=== PATIENT | female | born 1965 | race Caucasian/White ===

== ENCOUNTER 2018-10-19 10:15 | Outpatient (CLI) | payer BC ==
[~2018-10-19] VITALS: Ht 172.7 cm; Wt 104.9 kg
[~2018-10-19 10:15] MED LIST: ALPR-557 PO; AMIT10TA6 PO; AMLO5TAB2 PO; DICL75TA2 PO; ESTR0.5T PO; FLUO20CA25 PO; GABA-488 PO; HYDR-3816 PO; LOSA1TAB23 PO; METF-380 PO; MULT-1018 PO; OMEP40CA36 PO; OXYB10TA8 PO; SIMV20TA3 PO
[2018-10-19] MEDS ORDERED: AMLO5TAB7 PO (10:35)
[2018-10-19] MEDS ORDERED: CYCL10TA9 PO (10:35)
[2018-10-19] MEDS ORDERED: FLUO20CA42 PO (10:35)
[2018-10-19] MEDS ORDERED: ESTR0.5T PO (10:35)
[2018-10-19] MEDS ORDERED: METF-397 PO (10:35)
[2018-10-19] MEDS ORDERED: AMIT10TA6 PO (10:35)
[2018-10-19] MEDS ORDERED: INDO50CA11 PO (10:35)
[2018-10-19] MEDS ORDERED: LOSA1TAB15 PO (10:35)
[2018-10-19] MEDS ORDERED: OMEP40CA36 PO (10:35)
[2018-10-19] MEDS ORDERED: HYDR-3820 PO (10:35)
[2018-10-19] MEDS ORDERED: GABA-488 PO (10:35)
[2018-10-19] MEDS ORDERED: SIMV20TA3 PO (10:35)
[2018-10-19] MEDS ORDERED: ASCO1TAB39 PO (10:35)
[2018-10-19] MEDS ORDERED: SITA1TAB6 PO (10:35)
[2018-10-19] MEDS ORDERED: TOLTA4 PO (10:35)
[2018-10-19 10:42] VITALS: BP 135/94
== END 2018-10-19 11:43 | disposition home or self-care (01) ==
LOC: PREOP 10:15
PROVIDERS: ATTEND Orthopaedic Surgery
DX: Z01.818 Encounter for other preprocedural examination (principal)
CPT/HCPCS: 87081

== ENCOUNTER 2018-10-25 07:08 | Day surgery (SDC) | payer BC ==
--- NOTE | 2018-10-16 12:17 | HISTORY AND PHYSICAL ---
DATE OF SERVICE: ADMISSION HISTORY AND PHYSICAL DATE OF AMISSION: 10/25/2018 This will be for outpatient surgery on 10/25/2018 for right shoulder arthroscopy with rotator cuff repair. HISTORY OF PRESENT ILLNESS: The patient is a 53-year-old right hand dominant female with complaints of right shoulder pain. Four months ago, she felt a pop in her shoulder and since then, has had pain with overhead activities. She reports no antecedent pain. She underwent an MRI, which revealed a large retracted three tendon tear. She underwent treatment with injections, which provided temporary relief of her symptoms. Due to functional impairment and failure to improve with conservative measures, the patient elected to proceed with surgical intervention. The patient understands that this may be an irreparable tear. REVIEW OF SYSTEMS: No chest pain, no shortness of breath. No dysuria. PAST MEDICAL HISTORY: Depression, diabetes, hypertension, fibromyalgia, hyperlipidemia, Lumbago, overactive bladder, syncope, anxiety, arthritis, depression, reflux, diabetes. PAST SURGICAL HISTORY: Appendectomy, , carpal tunnel release, hysterectomy, lumpectomy, tubal ligation, cardiocele, dental surgery, hammertoe, heart catheterization, hysterectomy, total hip arthroplasty on the left. FAMILY HISTORY: Significant for Alzheimer's, hypertension, ischemic heart disease. PRIMARY CARE PROVIDER: No local physician. MEDICATIONS: Cyclobenzaprine, diclofenac, alprazolam, omeprazole, tolterodine, losartan, gabapentin, amlodipine, metformin, simvastatin, estradiol, amitriptyline, hydrocodone, Prozac and cefdinir. ALLERGIES: PROMETHAZINE and ZOFRAN. SOCIAL HISTORY: The patient drinks alcohol rarely and is a former smoker. Radiographs reveal slight elevation of the humeral head. PHYSICAL EXAMINATION: GENERAL: The patient is well developed, well-nourished, in no acute distress. HEENT: Normocephalic, atraumatic. Pupils equal, round and reactive. Oropharynx is clear. NECK: Supple, no lymphadenopathy. LUNGS: Clear to auscultation bilaterally. HEART: Regular rate and rhythm. ABDOMEN: Soft, nontender, nondistended. EXTREMITIES: The right shoulder demonstrates active forward elevation of degrees, external rotation degrees and internal rotation to her beltline. She has weakness with abduction and external rotation. Well maintained strength overall. She has a negative drop arm. IMPRESSION: Right shoulder rotator cuff tear. PLAN: Right shoulder arthroscopy with open rotator cuff repair. The risks, benefits, options, ramifications and recovery were discussed at length with the patient. She understands and wished to proceed. Job ID: [id number] DocumentID: [id number] Dictated Date: 10/16/2018 11:43:48 Cell Cleaner Date: 10/16/2018 12:17:03 Dictated By: SUSAN YOON MD
[~2018-10-25] VITALS: Ht 172.7 cm; Wt 104.9 kg
[~2018-10-25 07:08] MED LIST changes: +AMLO5TAB7 PO; +ASCO1TAB39 PO; +CYCL10TA9 PO; +FLUO20CA42 PO; +HYDR-3820 PO; +INDO50CA11 PO; +LOSA1TAB15 PO; +METF-397 PO; +SITA1TAB6 PO; +TOLTA4 PO
--- OUTSIDE RECORDS SUMMARY | 2018-10-25 07:13 | XMS REPORT | CCD ---
Author Author ROMANA MAY Unknown Address [address] [place] [address] Care Team Providers Care [employer] Developer Name Role Phone PARIKHBRIANJANNY DO Attphys PARIKHBRIANJANNY DO Prisurg Allergies Allergy Code Allergy Type Reaction Status PROMETHAZINE 8745 Drug allergy VOMITING Active ZOFRAN 45880 Drug allergy VOMITING Active Active Medications Medication Code Dose Units Frequency Route Modification Start Date/Time Amlodipine 5MG Oral Tablet 582008 5 MILLIGRAMS DAILY ORAL 12/14/2012 12:57 Prescription Detail 5 MILLIGRAMS ORAL DAILY Aspirin 325MG Oral Tablet [id number] 325 MILLIGRAMS DAILY ORAL 12/14/2012 12:57 Prescription Detail 325 MILLIGRAMS ORAL DAILY Estradiol 0.5MG Oral Tablet 129401 0.5 MILLIGRAMS DAILY ORAL 12/14/2012 12:57 Prescription Detail 0.5 MILLIGRAMS ORAL DAILY Gabapentin 300MG Oral Tablet 303422 300 MILLIGRAMS TWO TIMES A DAY ORAL 12/14/2012 12:57 Prescription Detail 300 MILLIGRAMS ORAL TWO TIMES A DAY Omeprazole 40MG Oral Capsule, Delayed Release [id number] 40 MILLIGRAMS DAILY ORAL 12/14/2012 12:57 Prescription Detail 40 MILLIGRAMS ORAL DAILY Simvastatin 20MG Oral Tablet [id number] 20 MILLIGRAMS AT BEDTIME ORAL 12/14/2012 12:57 Prescription Detail 20 MILLIGRAMS ORAL AT BEDTIME Problems Problem Code Start Date Resolved Date Status HYPOGLYCEMIA ASSOCIATED WITH DIABETES 11453994 Active Procedures Procedure Code Procedure Type Date BEDSIDE GLUCOSE 64548627 SNOMED CT 01/24/[address] 01/24/2017 UA ROUTINE C&S IF IND 094575411 SNOMED CT 01/24/2017 VENOUS BLOOD GAS 21058563 SNOMED CT 01/24/2017 COMPREHENSIVE METABOLIC PANEL 872325104 SNOMED CT 2016 CBC W/ AUTO DIFF (RFLX MAN DIFF IF IND) 1893070 SNOMED CT 01/24/2017 ^UA WITH MICRO 408597002 SNOMED CT 01/24/2017 ^CBC W/AUTO DIFF 7373517 SNOMED CT 01/24/2017 Results BEDSIDE GLUCOSE - Collect Date/Time: 01/24/2017 09:27 Test Name Code Test Result Test Units Test Ref Range GLUCOSE POCT 252 MG/DL L=70 H=100 COMPREHENSIVE METABOLIC PANEL - Collect Date/Time: 01/24/2017 09:15 Test Name Code Test Result Test Units Test Ref Range GLUCOSE 2345-7 220 MG/DL L=70 H=100 SODIUM 2951-2 138 MEQ/L L=135 H=148 POTASSIUM 2823-3 4.5 MEQ/L L=3.5 H=5.3 CHLORIDE 2075-0 105 MEQ/L L=96 H=110 CO2 2028-9 17 MEQ/L L=22 H=29 BUN 3094-0 30 MG/DL L=8 H=22 CREATININE 2160-0 1.1 MG/DL L=0.6 H=1.6 SGOT/AST 1920-8 20 IU/L L=10 H=40 SGPT/ALT 1742-6 27 IU/L L=8 H=54 ALK PHOS 6768-6 78 IU/L L=35 H=115 TOTAL PROTEIN 2885-2 7.5 G/DL L=5.5 H=8.5 ALBUMIN 1751-7 4.1 G/DL L=3.1 H=5.4 TOTAL BILI 1975-2 0.7 MG/DL L=0.0 H=1.5 CALCIUM 53684-0 9.7 MG/DL L=8.2 H=10.6 AGE 51 yrs GFR NonAA 53 GFR AA 64 eGFR 53 mL/min/1.7 eGFR AA* >60 N/A LIPASE - Collect Date/Time: 01/24/2017 09:15 Test Name Code Test Result Test Units Test Ref Range LIPASE 3040-3 89 U/L L=8 H=78 CBC W/ AUTO DIFF (RFLX MAN DIFF IF IND) - Collect Date/Time: 01/24/2017 09:15 Test Name Code Test Result Test Units Test Ref Range WBC 65733-5 8.2 TH/CMM L=4.5 H=10.8 RBC 789-8 4.71 ML/CMM L=4.20 H=5.40 HGB 718-7 13.5 G/DL L=12.0 H=16.0 HCT 4544-3 39.6 % L=37.0 H=47.0 MCV 84 FL L=81 H=99 MCH 28.7 PG L=27.0 H=33.0 MCHC 34.1 G/DL L=31.0 H=36.0 RDW SD 39 FL L=36 H=50 RDW CV 12.6 % L=0.0 H=14.8 MPV 10.7 FL L=9.3 H=12.5 PLT 777-3 305 TH/CMM L=130 H=440 NRBC# 0.00 TH/CMM L=0.00 H=0.00 NRBC% 0.0 /100WBC L=0.0 H=2.0 %NEUT 69.2 % %LYMP 24.6 % %MONO 5.7 % %EOS 0.0 % %BASO 0.4 % #NEUT 5.66 TH/CMM L=2.10 H=8.20 #LYMP 2.01 TH/CMM L=0.90 H=5.20 #MONO 0.47 TH/CMM L=0.16 H=1.00 #EOS 0.00 TH/CMM L=0.00 H=0.80 #BASO 0.03 TH/CMM L=0.00 H=0.20 MANUAL DIFF NOT IND N/A UA ROUTINE C&S IF IND - Collect Date/Time: 01/24/2017 10:25 Test Name Code Test Result Test Units Test Ref Range COLOR YELLOW N/A NL: YELLOW APPEARANCE CLEAR N/A NL: CLEAR SPEC GRAV <=1.005 N/A NL: 1.002 - 1.022 pH 6.0 N/A NL: 5 - 9 PROTEIN NEGATIVE N/A NL: NEGATIVE mg/dl GLUCOSE >=1000 N/A NL: NEGATIVE mg/dl KETONE 15 N/A NL: NEGATIVE mg/dl BILIRUBIN NEGATIVE N/A NL: NEGATIVE BLOOD NEGATIVE N/A NL: NEGATIVE NITRITE NEGATIVE N/A NL: NEGATIVE LEUK SCREEN NEGATIVE N/A NL: NEGATIVE MICRO INDICATED? SEE BELOW N/A WBC/HPF NEGATIVE N/A NL: NEGATIVE RBC/HPF NEGATIVE N/A NL: NEGATIVE CASTS/LPF NEGATIVE N/A NL: NEGATIVE CRYSTALS NEGATIVE N/A NL: NEGATIVE MUCOUS THRDS NEGATIVE N/A NL: NEGATIVE BACTERIA FEW N/A NL: NEGATIVE EPITH CELLS 1+ SQUAMOUS N/A NL: NEGATIVE TRICHOMONAS NEGATIVE N/A NL: NEGATIVE YEAST FEW BUDDING N/A NL: NEGATIVE CULT SET UP? NO N/A VENOUS BLOOD GAS - Collect Date/Time: 01/24/2017 09:15 Test Name Code Test Result Test Units Test Ref Range vPH 7.54 L=7.32 H=7.43 vPCO2 23 mmHG L=40 H=60 vPO2 108 mmHG L=30 H=55 vHCO3 19 mmol/L L=22 H=27 vTCO2 17 mmol/L L=24 H=28 vO2SAT 98 % L=40 H=85 SITE VENOUS N/A FIO2 21% N/A vBE -1.1 N/A L=-2.0 H=2.0 Function Status Unknown or Not Available. History of Immunizations Unknown or Not Available. Plan of Treatment Unknown or Not Available. Social History Smoking Status Code Start Date End Date Never smoker [id number] Vital Signs Unknown or Not Available. Function Status Unknown or Not Available. Goals Unknown or Not Available. ASSESSMENTS Unknown or Not Available. Health Concerns Section Unknown or Not Available.
--- OUTSIDE RECORDS SUMMARY | 2018-10-25 07:13 | XMS REPORT | CCD ---
Author Author ROMANA MAY Unknown Address [address] [place] [address] Care Team Providers Care [employer] Name Role Phone HOLIDAY ER, MONICA DO Attphys HOLIDAY ER, MONICA DO Prisurg Allergies Unknown or Not Available. Active Medications Medication Code Dose Units Frequency Route Modification Start Date/Time Amlodipine 5MG Oral Tablet 975283 5 MILLIGRAMS DAILY ORAL 12/14/2012 12:57 Prescription Detail 5 MILLIGRAMS ORAL DAILY Aspirin 325MG Oral Tablet 821391 325 MILLIGRAMS DAILY ORAL 12/14/2012 12:57 Prescription Detail 325 MILLIGRAMS ORAL DAILY Estradiol 0.5MG Oral Tablet 983476 0.5 MILLIGRAMS DAILY ORAL 12/14/2012 12:57 Prescription Detail 0.5 MILLIGRAMS ORAL DAILY Gabapentin 300MG Oral Tablet 259304 300 MILLIGRAMS TWO TIMES A DAY ORAL 12/14/2012 12:57 Prescription Detail 300 MILLIGRAMS ORAL TWO TIMES A DAY Omeprazole 40MG Oral Capsule, Delayed Release [id number] 40 MILLIGRAMS DAILY ORAL 12/14/2012 12:57 Prescription Detail 40 MILLIGRAMS ORAL DAILY Simvastatin 20MG Oral Tablet 025307 20 MILLIGRAMS AT BEDTIME ORAL 12/14/2012 12:57 Prescription Detail 20 MILLIGRAMS ORAL AT BEDTIME Problems Problem Code Start Date Resolved Date Status HYPOGLYCEMIA ASSOCIATED WITH DIABETES 92004455 Active Procedures Procedure Code Procedure Type Date BEDSIDE GLUCOSE 83907580 SNOMED CT 09/20/2016 BEDSIDE GLUCOSE 52441128 SNOMED CT 09/20/2016 UA ROUTINE C&S IF IND 790290598 SNOMED CT 09/20/2016 COMPREHENSIVE METABOLIC PANEL 450789173 SNOMED CT 2015 CBC W/ AUTO DIFF (RFLX MAN DIFF IF IND) 5598208 SNOMED CT 09/20/2016 ^UA WITH MICRO 537076946 SNOMED CT 09/20/2016 ^CBC W/AUTO DIFF 1755124 SNOMED CT 09/20/2016 Results BEDSIDE GLUCOSE - Collect Date/Time: 09/20/2016 16:44 Test Name Code Test Result Test Units Test Ref Range GLUCOSE POCT 263 MG/DL L=70 H=100 BEDSIDE GLUCOSE - Collect Date/Time: 09/20/2016 15:12 Test Name Code Test Result Test Units Test Ref Range GLUCOSE POCT 427 MG/DL L=70 H=100 COMPREHENSIVE METABOLIC PANEL - Collect Date/Time: 09/20/2016 14:00 Test Name Code Test Result Test Units Test Ref Range GLUCOSE 2345-7 539 MG/DL L=70 H=100 SODIUM 2951-2 134 MEQ/L L=135 H=148 POTASSIUM 2823-3 4.0 MEQ/L L=3.5 H=5.3 CHLORIDE 2075-0 100 MEQ/L L=96 H=110 CO2 2028-9 21 MEQ/L L=22 H=29 BUN 3094-0 11 MG/DL L=8 H=22 CREATININE 2160-0 1.1 MG/DL L=0.6 H=1.6 SGOT/AST 1920-8 17 IU/L L=10 H=40 SGPT/ALT 1742-6 27 IU/L L=8 H=54 ALK PHOS 6768-6 119 IU/L L=35 H=115 TOTAL PROTEIN 2885-2 7.2 G/DL L=5.5 H=8.5 ALBUMIN 1751-7 4.0 G/DL L=3.1 H=5.4 TOTAL BILI 1975-2 0.5 MG/DL L=0.0 H=1.5 CALCIUM 71503-8 9.0 MG/DL L=8.2 H=10.6 AGE 51 yrs GFR NonAA 53 GFR AA 64 eGFR 53 mL/min/1.7 eGFR AA* >60 N/A CBC W/ AUTO DIFF (RFLX MAN DIFF IF IND) - Collect Date/Time: 09/20/2016 14:00 Test Name Code Test Result Test Units Test Ref Range WBC 55047-9 7.8 TH/CMM L=4.5 H=10.8 RBC 789-8 4.74 ML/CMM L=4.20 H=5.40 HGB 718-7 13.7 G/DL L=12.0 H=16.0 HCT 4544-3 40.8 % L=37.0 H=47.0 MCV 86 FL L=81 H=99 MCH 28.9 PG L=27.0 H=33.0 MCHC 33.6 G/DL L=31.0 H=36.0 RDW SD 39 FL L=36 H=50 RDW CV 12.1 % L=0.0 H=14.8 MPV 11.0 FL L=9.3 H=12.5 PLT 777-3 281 TH/CMM L=130 H=440 NRBC# 0.00 TH/CMM L=0.00 H=0.00 NRBC% 0.0 /100WBC L=0.0 H=2.0 %NEUT 65.7 % %LYMP 29.5 % %MONO 4.6 % %EOS 0.0 % %BASO 0.1 % #NEUT 5.09 TH/CMM L=2.10 H=8.20 #LYMP 2.29 TH/CMM L=0.90 H=5.20 #MONO 0.36 TH/CMM L=0.16 H=1.00 #EOS 0.00 TH/CMM L=0.00 H=0.80 #BASO 0.01 TH/CMM L=0.00 H=0.20 MANUAL DIFF NOT IND N/A UA ROUTINE C&S IF IND - Collect Date/Time: 09/20/2016 14:15 Test Name Code Test Result Test Units Test Ref Range COLOR YELLOW N/A NL: YELLOW APPEARANCE CLEAR N/A NL: CLEAR SPEC GRAV 1.010 N/A NL: 1.002 - 1.022 pH 5.0 N/A NL: 5 - 9 PROTEIN NEGATIVE N/A NL: NEGATIVE mg/dl GLUCOSE >=1000 N/A NL: NEGATIVE mg/dl KETONE NEGATIVE N/A NL: NEGATIVE mg/dl BILIRUBIN NEGATIVE N/A NL: NEGATIVE BLOOD NEGATIVE N/A NL: NEGATIVE NITRITE NEGATIVE N/A NL: NEGATIVE LEUK SCREEN NEGATIVE N/A NL: NEGATIVE MICRO INDICATED? SEE BELOW N/A WBC/HPF 0-5 N/A NL: NEGATIVE RBC/HPF 0-5 N/A NL: NEGATIVE CASTS/LPF NEGATIVE N/A NL: NEGATIVE CRYSTALS NEGATIVE N/A NL: NEGATIVE MUCOUS THRDS NEGATIVE N/A NL: NEGATIVE BACTERIA FEW N/A NL: NEGATIVE EPITH CELLS FEW SQUAMOUS N/A NL: NEGATIVE TRICHOMONAS NEGATIVE N/A NL: NEGATIVE YEAST NEGATIVE N/A NL: NEGATIVE CULT SET UP? NO N/A Function Status Unknown or Not Available. History of Immunizations Unknown or Not Available. Plan of Treatment Unknown or Not Available. Social History Smoking Status Code Start Date End Date Never smoker [id number] Vital Signs Unknown or Not Available. Function Status Unknown or Not Available. Goals Unknown or Not Available. ASSESSMENTS Unknown or Not Available. Health Concerns Section Unknown or Not Available.
--- OUTSIDE RECORDS SUMMARY | 2018-10-25 07:17 | XMS REPORT ---
Author Author Brannon Jackson [facility] Address [address] [place] [id number] Care Team Providers Care Tie Man Name Role Phone Brannon Jackson PCP Brannon Jackson PreferredProvider Allergies and Adverse Reactions Name Reaction Notes promethazine vomiting Zofran vomiting Plan of Treatment Planned Activity Comments Planned Date Planned Time Plan/Goal MRI pelvis and hip left wo contrast 08/01/2015 12:00 AM MRI THORACIC SPINE W/O CONTRAST 12/15/2016 12:00 AM MRI LUMBAR SPINE W/O CONTRAST 12/15/2016 12:00 AM Ganglion cyst right hand 12/14/2016 2:30 PM Medications Active Name Start Date Estimated Completion Date SIG Comments Multivitamin, Hair, Skin,and Nails one tablet daily estradiol 0.5 mg oral tablet 05/09/2017 take 1 tablet (0.5 mg) by oral route once daily Voltaren 1 % topical gel 10/25/2017 apply 2 gram to the affected area(s) by topical route 4 times per day gabapentin 300 mg oral capsule 11/11/2017 Take 1 capsule in am and 2 capsules in pm Janumet 50-1,000 mg oral tablet 01/23/2018 take 1 tablet by oral route 2 times per day with meals for 90 days estradiol 0.5 mg oral tablet 02/06/2018 TAKE 1 TABLET ONCE DAILY fluoxetine 40 mg oral capsule 05/11/2018 05/06/2019 take 1 capsule by oral route daily for 90 days losartan-hydrochlorothiazide 100-25 mg oral tablet 05/11/2018 TAKE 1 TABLET DAILY omeprazole 40 mg oral capsule,delayed release(DR/EC) 05/11/2018 TAKE 1 CAPSULE DAILY losartan-hydrochlorothiazide 100-25 mg oral tablet 06/29/2018 TAKE 1 TABLET DAILY hydrocodone-acetaminophen 10-325 mg oral tablet 09/11/2018 10/11/2018 take 1 tablet by oral route every 6 hours as needed for pain for 30 days May fill 07/06 simvastatin 20 mg oral tablet 09/20/2018 TAKE 1 TABLET ONCE DAILY INTHE EVENING amlodipine 5 mg oral tablet 09/20/2018 TAKE 1 TABLET DAILY amitriptyline 10 mg oral tablet 09/20/2018 TAKE 1 TABLET ONCE A DAY ATBEDTIME metformin 1,000 mg oral tablet 09/20/2018 TAKE 1 TABLET TWICE A DAY cyclobenzaprine 10 mg oral tablet 09/20/2018 TAKE 1 TABLET EVERY 8 HOURSAS NEEDED FOR MUSCLE SPASM gabapentin 300 mg oral capsule 09/20/2018 TAKE 1 CAPSULE TWICE DAILY indomethacin 50 mg oral capsule 10/09/2018 10/04/2019 take 1 capsule (50 mg) by oral route 3 times per day with food for 90 days Name Start Date Expiration Date SIG Comments DUETACT 30-4 mg oral tablet 12/02/2009 12/30/2009 take 1 tablet by oral route once daily for 28 days Bactrim DS 800-160 mg oral tablet 08/18/2010 08/28/2010 take 1 tablet by oral route every 12 hours for 10 days Bactroban 2 % topical cream 08/18/2010 08/25/2010 apply a small amount to the affected area by topical route 3 times per day for 7 days Bactrim DS 800-160 mg oral tablet 04/27/2011 05/07/2011 take 1 tablet by oral route every 12 hours for 10 days ibuprofen 800 mg oral tablet 09/28/2011 09/28/2011 TAKE 1 TABLET BY MOUTH THREE TIMES DAILY WITH FOOD Bactrim DS 800-160 mg oral tablet 10/11/2011 10/21/2011 take 1 tablet (800- 160 mg) by oral route every 12 hours for 10 days Bactrim DS 800-160 mg oral tablet 12/15/2011 12/22/2011 take 1 tablet by oral route 2 times per day for 7 days Cymbalta 30 mg oral capsule,delayed release(DR/EC) 12/23/2011 01/22/2012 take 1 capsule (30 mg) by oral route daily Zithromax Z-Amado 250 mg oral tablet 07/11/2012 07/16/2012 take 2 tablets (500 mg) by oral route once daily for 1 day then 1 tablet (250 mg) by oral route once daily for 4 days methocarbamol 750 mg oral tablet 08/01/2012 08/02/2012 take 1 tablet by oral route every 8 hours as needed Bactrim DS 800-160 mg oral tablet 07/05/2013 07/12/2013 take 1 tablet by oral route 2 times per day for 7 days [place] Thyroid 120 mg oral tablet 12/14/2012 12/09/2013 take 1 tablet (120 mg) by oral route once daily before breakfast for 90 days trazodone 100 mg oral tablet 12/14/2012 12/09/2013 take 1 tablet (100 mg) by oral route once daily at bedtime Reglan 10 mg oral tablet 04/05/2014 04/10/2014 take 1 tablet (10 mg) by oral route 4 times per day 30 minutes before meals and at bedtime for 5 days Claritin-D 12 Hour 5-120 mg oral tablet extended release 12 hr 04/05/20142013 take 1 tablet by oral route 2 times per day for 15 days Augmentin 500-125 mg oral tablet 09/20/2014 09/27/2014 take 1 tablet by oral route every 12 hours for 7 days Monistat 7 2 % vaginal cream 10/10/2014 10/17/2014 insert 1 applicatorful by vaginal route once daily at bedtime for 7 days fentanyl 12 mcg/hr transdermal patch 72 hour 10/29/2014 11/28/2014 apply 1 patch (12 mcg/hour) by transdermal route every 72 hours for 30 days Detrol LA 4 mg oral capsule,extended release 24hr 11/11/2014 11/06/2015 take 1 capsule (4 mg) by oral route once daily for 90 days Generic equivalent on her list amantadine HCl 100 mg oral tablet 11/28/2014 12/03/2014 take 1 tablet (100 mg) by oral route 2 times per day for 5 days omeprazole 40 mg oral capsule,delayed release(DR/EC) 04/02/2015 03/27/2016 take 1 capsule (40 mg) by oral route once daily before a meal for 90 days Bactrim DS 800-160 mg oral tablet 08/01/2015 08/08/2015 take 1 tablet by oral route 2 times per day for 7 days alprazolam 0.25 mg oral tablet 07/07/2016 08/06/2016 take 1 tablet (0.25 mg) by oral route 2 times per day as needed Taking Hydrocodone amoxicillin 500 mg oral capsule 11/02/2016 11/12/2016 take 2 capsules (1,000 mg ) by oral route every 12 hours x 10 days Miconazole 7 100 mg vaginal suppository 12/31/2016 01/07/2017 insert 1 suppository (100 mg) by vaginal route once daily at bedtime for 7 days sulfamethoxazole-trimethoprim 800-160 mg oral tablet 02/04/2017 02/11/2017 take 1 tablet by oral route 2 times per day for 7 days Januvia 100 mg oral tablet 01/25/2017 02/08/2017 take 1 tablet (100 mg) by oral route once daily for 14 days Taking Janumet permethrin 5 % topical cream 06/18/2017 06/19/2017 apply from neck to sooles of feet in evening, Leave on overnight and then shower. X 1 hydroxyzine pamoate 25 mg oral capsule 06/18/2017 06/25/2017 take 1 capsule ( 25 mg) po at HS x 7 days amlodipine 5 mg oral tablet 09/26/2017 09/21/2018 TAKE 1 TABLET DAILY simvastatin 20 mg oral tablet 09/26/2017 09/21/2018 TAKE 1 TABLET ONCE DAILY INTHE EVENING metformin 1,000 mg oral tablet 09/26/2017 09/21/2018 TAKE 1 TABLET TWICE A DAY Taking Janumet cyclobenzaprine 10 mg oral tablet 09/26/2017 09/21/2018 TAKE 1 TABLET EVERY 8 HOURSAS NEEDED FOR MUSCLE SPASM amitriptyline 10 mg oral tablet 09/26/2017 09/21/2018 TAKE 1 TABLET ONCE A DAY ATBEDTIME Zithromax 250 mg oral tablet 10/28/2017 11/02/2017 take 2 tablets (500 mg) by oral route once daily x 5 days (hold cholesterol med and hydroxine while on antibiotic) Vesicare 10 mg oral tablet 03/28/2018 take 1 tablet (10 mg) by oral route once daily Taking Tolterodine Discontinued Name Start Date Discontinued Date SIG Comments ibuprofen 800 mg oral tablet 09/08/2009 02/03/2010 take 1 tablet by oral route TID PRN with food glimepiride 4 mg oral tablet 10/22/2009 12/02/2009 TAKE 1 TABLET BY MOUTH TWICE DAILY cannot afford Plavix 75 mg oral tablet 12/02/2009 take 1 tablet (75 mg) by oral route once daily cannot afford naproxen 500 mg oral tablet 12/02/2009 take 1 tablet by oral route 2 times a day cannot afford metoprolol tartrate 100 mg oral tablet 12/02/2009 take 1 tablet (100 mg) by oral route 2 times per day with meals cannot afford aspirin 325 mg oral tablet 12/22/2012 take 1 tablet (325 mg) by oral route once daily taking Plavix now simvastatin 20 mg oral tablet 12/02/2009 take 1 tablet (20 mg) by oral route once daily in the evening cannot afford hydrocodone-acetaminophen 5-500 mg oral tablet 12/02/2009 take 1 tablet by oral route every 6 hours as needed for pain cannot afford metformin 1,000 mg oral tablet 12/02/2009 take 1 tablet (1,000 mg) by oral route 2 times per day with morning and evening meals cannot afford Actos 30 mg oral tablet 12/02/2009 take 1 tablet (30 mg) by oral route once daily could not afford Flexeril 10 mg oral tablet 12/02/2009 no longer needed Niaspan Extended-Release 500 mg oral tablet extended release 24 hr 01/02/2010 take 1 tablet (500 mg) by oral route once daily at bedtime after a low -fat snack for 30 days Lortab 5-500 mg oral tablet 02/24/2010 10/08/2010 take 1 tablet by oral route every 4-6 hours as needed for pain Medrol (Amado) 4 mg oral tablets,dose pack 03/26/2010 10/08/2010 take as directed Plavix 75 mg oral tablet 05/13/2010 10/07/2011 take 1 tablet (75 mg) by oral route daily for 30 days "can't afford it" Replaced/Retired Drug 2.8-2-25 mg oral tablet 06/18/2010 11/17/2010 take 2 tablets by oral route daily for 30 days bupropion HCl 300 mg oral tablet extended release 24 hr 08/28/2010 11/17/2010 1QD - TAKE ONE TABLET BY MOUTH EVERY DAY Crestor 10 mg oral tablet 10/07/2010 11/09/2010 take 1 tablet (10 mg) by oral route once daily for 30 days Aleve 220 mg oral tablet 04/16/2011 take 1 tablet (220 mg) by oral route every morning Advil PM Liqui-Gels 200-25 mg oral capsule 04/16/2011 take 1 capsule by oral route once a day (at bedtime) Keflex 500 mg oral capsule 10/08/2010 11/17/2010 take 1 capsule (500 mg) by oral route every 12 hours meloxicam 15 mg oral tablet 12/18/2010 04/16/2011 take 1 tablet (15 mg) by oral route once daily fluconazole 100 mg oral tablet 04/27/2011 10/07/2011 take 1 tablet by oral route daily Toviaz 4 mg oral tablet extended release 24 hr 05/20/2011 05/24/2011 take 1 tablet (4 mg) by oral route once daily terbinafine HCl 250 mg oral tablet 05/20/2011 05/20/2011 take 1 tablet (250 mg ) by oral route once daily for 30 days deleted paroxetine HCl 20 mg oral tablet 06/18/2011 01/17/2012 take 1 tablet (20 mg) by oral route once daily for 90 days oxybutynin chloride 10 mg oral tablet extended release 24hr 06/25/20112010 take 1 tablet (10 mg) by oral route once daily for 90 days "not taking anymore" terbinafine HCl 250 mg oral tablet 09/28/2011 10/07/2011 TAKE ONE TABLET BY MOUTH EVERY DAY glimepiride 4 mg oral tablet 10/15/2011 11/11/2011 take 1 tablet by oral route daily for 90 days Levaquin 500 mg oral tablet 10/28/2011 11/11/2011 take 1 tablet (500 mg) by oral route once daily prednisone 10 mg oral tablet 10/28/2011 12/06/2011 take 1 tablet (10 mg) by oral route once daily Bactrim DS 800-160 mg oral tablet 11/23/2011 12/06/2011 take 1 tablet by oral route every 12 hours niacin 500 mg oral capsule, extended release 12/18/2013 take 1 capsule by oral route daily Vitamin D3 5,000 unit oral tablet 12/18/2013 take 1 tablet by oral route daily vitamin B12 Oral 12/18/2013 1 tab daily Combivent 18-103 mcg/actuation inhalation aerosol 04/29/2014 inhale 2 puffs by inhalation route 4 times per day /PRN Cortisporin 3.5-10,000-1 mg/mL-unit/mL-% otic solution 12/16/2011 08/01/2012 instill 4 drops into right ear by otic route 3 times per day Actos 30 mg oral tablet 05/08/2012 12/22/2012 take 1 tablet (30 mg) by oral route once daily for 90 days hypoglycemia Benicar HCT 40-25 mg oral tablet 05/08/2012 08/01/2012 take 1 tablet by oral route once daily changed to losartan Lantus Solostar 100 unit/mL (3 mL) subcutaneous insulin pen 05/08/20122012 inject 20 units by subcutaneous route at bedtime hypoglycemia oxybutynin chloride 10 mg oral tablet extended release 24hr 05/08/20122012 take 1 tablet (10 mg) by oral route once daily for 90 days Diflucan 150 mg oral tablet 08/01/2012 take 1 tablet (150 mg) by oral route once, repeat in one week. hydrocodone-acetaminophen 7.5-325 mg oral tablet 10/04/2012 10/04/2012 TAKE ONE TABLET BY MOUTH EVERY 4 TO 6 HOURS NEEDED FOR PAIN deleted Plavix 75 mg oral tablet 10/17/2012 12/14/2012 take 1 tablet (75 mg) by oral route once daily for 90 days deleted glimepiride 4 mg oral tablet 10/26/2012 12/22/2012 take 1 tablet (4 mg) by oral route once daily for 90 days hypoglycemia clopidogrel 75 mg oral tablet 12/14/2012 09/13/2013 take 1 tablet by oral route daily for 90 days "stopped last year" trospium 20 mg oral tablet 12/19/2012 12/29/2012 take 1 tablet (20 mg) by oral route 2 times per day at least 1 hour before or 2 hours after meals for 90 days Wants to resume Oxybutynin amoxicillin 500 mg oral capsule 08/17/2013 08/27/2013 take 1 capsule (500 mg ) by oral route every 8 hours for 10 days paroxetine HCl 20 mg oral tablet 08/27/2013 01/02/2014 take 1 tablet (20 mg) by oral route once daily for 30 days cyclobenzaprine 10 mg oral tablet 08/27/2013 04/29/2014 TAKE ONE TABLET BY MOUTH THREE TIMES DAILY NEEDED guaifenesin 600 mg oral tablet extended release 09/13/2013 12/18/2013 take 1 tablet (600 mg) by oral route every 12 hours Cymbalta 30 mg oral capsule,delayed release(DR/EC) 01/02/2014 01/07/2014 take 2 capsules (60 mg) by oral route once daily for 30 days Paxil 20 mg oral tablet 01/24/2014 04/29/2014 take 1 tablet (20 mg) by oral route once daily for 90 days alternative medication prescribed oxybutynin chloride 10 mg oral tablet extended release 24hr 05/24/20142013 take 1 tablet (10 mg) by oral route once daily for 90 days omeprazole 40 mg oral capsule,delayed release(DR/EC) 08/30/2014 12/19/2014 TAKE 1 CAPSULE BY ORAL ROUTE DAILY FOR 30 DAYS oxybutynin chloride 10 mg oral tablet extended release 24hr 09/19/20142014 take 1 tablet (10 mg) by oral route once daily for 90 days Hysingla ER 30 mg oral tablet,oral only,ext.rel.24 hr 12/12/2014 01/09/2015 One tablet by mouth every 24 hours. expensive pantoprazole 40 mg oral tablet,delayed release (DR/EC) 12/19/2014 04/02/2015 take 1 tablet (40 mg) by oral route once daily for 102 days Taking Omeprazole aspirin 325 mg oral tablet 06/18/2017 take 1 tablet (325 mg) by oral route once daily tolterodine 4 mg oral capsule,extended release 24hr 02/05/2016 05/18/2016 take 1 capsule (4 mg) by oral route once daily for 90 days nystatin 100,000 unit/gram topical cream 05/05/2016 05/18/2016 apply to the affected area(s) by topical route 2 times per day fluconazole 100 mg oral tablet 05/05/2016 05/18/2016 take 1 tablet by oral route daily estradiol 0.5 mg oral tablet 05/18/2016 09/09/2016 TAKE ONE TABLET BY MOUTH EVERY DAY no longer taking fluconazole 100 mg oral tablet 09/13/2016 11/25/2016 take 1 tablet by oral route every other day Miralax 17 gram/dose oral powder 01/19/2017 06/18/2017 take 17 gram mixed with 8 oz. water, juice, soda, coffee or tea by oral route once daily lisinopril-hydrochlorothiazide 20-12.5 mg oral tablet 01/19/2017 03/08/2017 take 1 tablet by oral route once daily No longer taking. On Losartan/HCT diphenhydramine HCl 50 mg oral capsule 05/09/2017 06/18/2017 take 1 capsule ( 50 mg) by oral route every 6 hours as needed hydrocortisone valerate 0.2 % topical cream 05/20/2017 03/28/2018 apply a thin layer to the affected area(s) by topical route 3 times per day hydroxyzine pamoate 25 mg oral capsule 06/29/2017 11/11/2017 take 1 capsule ( 25 mg) by oral route at HS x 10 days diclofenac sodium 75 mg oral tablet,delayed release (DR/EC) 07/11/20172016 TAKE 1 TABLET TWICE A DAY currently taking Tivorbex permethrin 5 % topical cream 07/29/2017 09/01/2017 apply (thoroughly massage into skin from head to feet) by topical route once leave on 8-14 hr, then bathe1 Tivorbex 40 mg oral capsule 09/21/2017 01/23/2018 take 1 capsule (40 mg) by oral route 3 times per for 90 days Zyrtec-D 5-120 mg oral tablet extended release 12 hr 10/05/2017 11/11/2017 take 1 tablet by oral route 2 times per day Flonase Allergy Relief 50 mcg/actuation nasal spray,suspension 10/05/201705/11 spray 1 spray (50 mcg) in each nostril by intranasal route once daily tolterodine 4 mg oral capsule,extended release 24hr 10/17/2017 03/28/2018 take 1 capsule (4 mg) by oral route once daily for 90 days Medrol (Amado) 4 mg oral tablets,dose pack 11/09/2017 03/28/2018 take as directed fluconazole 100 mg oral tablet 03/25/2018 03/28/2018 take 1 tablet (100 mg) by oral route once daily for 7 days tolterodine 4 mg oral capsule,extended release 24hr 08/21/2018 09/28/2018 take 1 capsule (4 mg) by oral route once daily for 90 days Problem List Description Status Onset Depressive Disorder Active Diabetes Mellitus, Type II Active Hyperlipidemia, Mixed Active Hypertension Active Obesity Active Fibromyalgia Active 05/26/2013 Overactive bladder Active 12/18/2014 Osteoarthritis, Left Hip Active 03/10/2015 Left hip pain Active 03/10/2015 Lumbago Active 06/04/2015 Ganglion cyst Active 12/14/2016 Essential Hypertension Active 01/20/2017 Uncontrolled type 2 diabetes mellitus without complication, without long-term current use of insulin Active 01/20/2017 Vital Signs Date Time BP-Sys(mm[Hg] BP-Debo(mm[Hg]) HR(bpm) RR(rpm) Temp WT HT HC BMI BSA BMI Percentile O2 Sat(%) 09/28/2018 7:59:00 AM 142 mmHg 80 mmHg 93 bpm 20 rpm 97.7 F 227 lbs 68 in 34.5149 kg/m 2.2226 m 99 % 08/17/2018 8:20:00 AM 152 mmHg 88 mmHg 92 bpm 20 rpm 98.6 F 235 lbs 68 in 35.73 kg/m2 2.26 m2 98 % 06/27/2018 4:16:00 PM 130 mmHg 70 mmHg 96 bpm 20 rpm 97.9 F 234 lbs 68 in 35.5792 kg/m 2.2566 m 97 % 06/24/2018 8:31:00 AM 176 mmHg 102 mmHg 85 bpm 18 rpm 97.7 F 228.25 lbs 68 in 34.70 kg/m2 2.23 m2 97 % 05/24/2018 4:02:00 PM 144 mmHg 80 mmHg 94 bpm 20 rpm 97.7 F 233 lbs 68 in 35.4272 kg/m 2.2518 m 98 % 05/11/2018 2:02:00 PM 130 mmHg 78 mmHg 98 bpm 20 rpm 97.9 F 231 lbs 68 in 35.12 kg/m2 2.24 m2 100 % 03/28/2018 9:32:00 AM 139 mmHg 82 mmHg 95 bpm 22 rpm 98.2 F 232 lbs 68 in 35.2751 kg/m 2.247 m 97 % 12/02/2017 8:55:00 AM 162 mmHg 98 mmHg 66 bpm 20 rpm 98.6 F 228 lbs 68 in 34.67 kg/m2 2.23 m2 98 % 11/11/2017 9:28:00 AM 150 mmHg 88 mmHg 97 bpm 22 rpm 98.3 F 229 lbs 69 in 33.817 kg/m 2.2488 m 97 % 11/09/2017 5:10:00 PM 146 mmHg 89 mmHg 82 bpm 19 rpm 7.6 F 233.8 lbs 68 in 35.55 kg/m2 2.26 m2 97 % 10/28/2017 6:22:00 PM 138 mmHg 88 mmHg 86 bpm 18 rpm 99 F 234 lbs 68 in 35.5792 kg/m 2.2566 m 98 % 10/25/2017 1:17:00 PM 156 mmHg 88 mmHg 102 bpm 18 rpm 97.4 F 231.5 lbs 68 in 35.20 kg/m2 2.24 m2 99 % 10/05/2017 8:30:00 AM 129 mmHg 79 mmHg 96 bpm 18 rpm 98.2 F 230 lbs 68 in 34.971 kg/m 2.2373 m 99 % 09/01/2017 1:26:00 PM 130 mmHg 88 mmHg 99 bpm 20 rpm 97.5 F 231 lbs 68 in 35.12 kg/m2 2.24 m2 97 % 06/29/2017 7:35:00 PM 150 mmHg 90 mmHg 83 bpm 18 rpm 97 F 236 lbs 68 in 35.8833 kg/m 2.2663 m 98 % 06/18/2017 8:36:00 AM 160 mmHg 100 mmHg 84 bpm 18 rpm 98.6 F 236 lbs 68 in 35.88 kg/m2 2.27 m2 99 % 05/09/2017 8:24:00 AM 154 mmHg 88 mmHg 96 bpm 20 rpm 98.1 F 233 lbs 68 in 35.4272 kg/m 2.2518 m 97 % 03/08/2017 3:58:00 PM 138 mmHg 86 mmHg 91 bpm 16 rpm 97.3 F 230 lbs 68 in 34.97 kg/m2 2.24 m2 97 % 01/25/2017 3:22:00 PM 168 mmHg 98 mmHg 97 bpm 22 rpm 97 F 222 lbs 68 in 33.7546 kg/m 2.198 m 97 % 01/19/2017 9:38:00 AM 136 mmHg 82 mmHg 74 bpm 18 rpm 97.9 F 227 lbs 68 in 34.51 kg/m2 2.22 m2 99 % 01/04/2017 2:54:00 PM 156 mmHg 96 mmHg 86 bpm 20 rpm 97.8 F 238 lbs 68 in 36.1874 kg/m 2.2758 m 12/24/2016 10:21:00 AM 156 mmHg 96 mmHg 12/24/2016 9:35:00 AM 184 mmHg 110 mmHg 86 bpm 20 rpm 97.9 F 238 lbs 68 in 36.1874 kg/m 2.2758 m 97 % 12/14/2016 2:45:00 PM 168 mmHg 93 mmHg 92 bpm 20 rpm 97.7 F 238 lbs 68 in 36.19 kg/m2 2.28 m2 11/25/2016 3:26:00 PM 162 mmHg 98 mmHg 98 bpm 20 rpm 98.2 F 230 lbs 68 in 34.971 kg/m 2.2373 m 97 % 11/19/2016 5:41:00 PM 180 mmHg 120 mmHg 98 bpm 99.2 F 233 lbs 68 in 35.43 kg/m2 2.25 m2 99 % 11/02/2016 5:12:00 PM 188 mmHg 118 mmHg 108 bpm 98.1 F 234 lbs 68 in 35.58 kg/m2 2.26 m2 98 % 09/09/2016 3:21:00 PM 172 mmHg 90 mmHg 95 bpm 22 rpm 98.3 F 230 lbs 68 in 34.971 kg/m 2.2373 m 98 % 05/18/2016 3:56:00 PM 138 mmHg 84 mmHg 81 bpm 16 rpm 98.5 F 244 lbs 68 in 37.10 kg/m2 2.30 m2 95 % 05/05/2016 8:47:00 AM 142 mmHg 88 mmHg 78 bpm 16 rpm 97.3 F 232 lbs 68 in 35.2751 kg/m 2.247 m 98 % 02/05/2016 11:11:00 AM 136 mmHg 78 mmHg 80 bpm 20 rpm 99.3 F 235 lbs 68 in 35.73 kg/m2 2.26 m2 98 % 10/13/2015 3:52:00 PM 148 mmHg 86 mmHg 90 bpm 18 rpm 97.5 F 236 lbs 68 in 35.8833 kg/m 2.2663 m 97 % 09/03/2015 2:57:00 PM 138 mmHg 86 mmHg 89 bpm 20 rpm 97.2 F 231 lbs 68 in 35.12 kg/m2 2.24 m2 08/29/2015 9:23:00 AM 134 mmHg 76 mmHg 80 bpm 16 rpm 98 F 230 lbs 66 in 37.1226 kg/m 2.2041 m 99 % 08/20/2015 1:03:00 PM 122 mmHg 72 mmHg 96 bpm 18 rpm 98.6 F 226.375 lbs 68 in 34.42 kg/m2 2.22 m2 08/01/2015 11:33:00 AM 140 mmHg 82 mmHg 73 bpm 22 rpm 97.2 F 225 lbs 68 in 34.2108 kg/m 2.2128 m 07/02/2015 4:07:00 PM 136 mmHg 74 mmHg 70 bpm 18 rpm 96.2 F 225 lbs 68 in 34.21 kg/m2 2.21 m2 06/04/2015 11:34:00 AM 108 mmHg 62 mmHg 68 bpm 20 rpm 96.7 F 223 lbs 68 in 33.9067 kg/m 2.203 m 05/15/2015 3:03:00 PM 138 mmHg 80 mmHg 82 bpm 20 rpm 98.7 F 220 lbs 68 in 33.45 kg/m2 2.19 m2 98 % 05/08/2015 11:38:00 AM 110 mmHg 64 mmHg 73 bpm 18 rpm 96.4 F 215 lbs 68 in 32.6903 kg/m 2.1631 m 04/28/2015 8:03:00 AM 134 mmHg 78 mmHg 80 bpm 16 rpm 98.9 F 215 lbs 68 in 32.69 kg/m2 2.16 m2 99 % 04/09/2015 11:50:00 AM 132 mmHg 82 mmHg 52 bpm 18 rpm 97 F 222 lbs 68 in 33.7546 kg/m 2.198 m 04/01/2015 10:27:00 AM 132 mmHg 78 mmHg 71 bpm 20 rpm 97.6 F 226 lbs 68 in 34.36 kg/m2 2.22 m2 98 % 03/10/2015 4:30:00 PM 132 mmHg 86 mmHg 73 bpm 20 rpm 96.8 F 223 lbs 68 in 33.9067 kg/m 2.203 m 02/25/2015 11:48:00 AM 142 mmHg 76 mmHg 73 bpm 20 rpm 97.4 F 219 lbs 68 in 33.30 kg/m2 2.18 m2 12/17/2014 8:18:00 AM 138 mmHg 88 mmHg 85 bpm 22 rpm 99.1 F 214 lbs 68 in 32.5383 kg/m 2.158 m 98 % 12/12/2014 3:15:00 PM 128 mmHg 70 mmHg 76 bpm 18 rpm 97.4 F 222 lbs 68 in 33.75 kg/m2 2.20 m2 10/02/2014 4:28:00 PM 124 mmHg 82 mmHg 70 bpm 18 rpm 97.9 F 224 lbs 68 in 34.0587 kg/m 2.2079 m 09/20/2014 9:51:00 AM 178 mmHg 98 mmHg 72 bpm 18 rpm 98 F 225 lbs 68 in 34.21 kg/m2 2.21 m2 99 % 09/05/2014 3:58:00 PM 128 mmHg 94 mmHg 78 bpm 16 rpm 97 F 223 lbs 68 in 33.9067 kg/m 2.203 m 07/29/2014 11:12:00 AM 124 mmHg 80 mmHg 74 bpm 16 rpm 97.6 F 229 lbs 68 in 34.82 kg/m2 2.23 m2 07/18/2014 10:35:00 AM 128 mmHg 62 mmHg 74 bpm 20 rpm 98.4 F 229 lbs 68 in 34.819 kg/m 2.2324 m 99 % 07/03/2014 2:07:00 PM 110 mmHg 70 mmHg 87 bpm 18 rpm 97.7 F 228.5 lbs 68 in 34.74 kg/m2 2.23 m2 96 % 06/11/2014 3:42:00 PM 126 mmHg 84 mmHg 70 bpm 16 rpm 96.8 F 228 lbs 68 in 34.6669 kg/m 2.2275 m 04/29/2014 12:59:00 PM 142 mmHg 92 mmHg 64 bpm 16 rpm 97.8 F 227 lbs 68 in 34.51 kg/m2 2.22 m2 04/29/2014 11:05:00 AM 136 mmHg 82 mmHg 71 bpm 20 rpm 98 F 227 lbs 68 in 34.5149 kg/m 2.2226 m 98 % 04/05/2014 5:12:00 PM 126 mmHg 68 mmHg 67 bpm 18 rpm 97.5 F 225 lbs 68 in 34.21 kg/m2 2.21 m2 98 % 02/25/2014 1:15:00 PM 144 mmHg 82 mmHg 74 bpm 16 rpm 97.2 F 231 lbs 68 in 35.1231 kg/m 2.2421 m 01/02/2014 8:29:00 AM 134 mmHg 84 mmHg 92 bpm 16 rpm 97.3 F 230 lbs 68 in 34.97 kg/m2 2.24 m2 12/18/2013 9:07:00 AM 142 mmHg 100 mmHg 82 bpm 16 rpm 97.8 F 232 lbs 68 in 35.2751 kg/m 2.247 m 09/13/2013 9:25:00 AM 142 mmHg 82 mmHg 92 bpm 16 rpm 97.2 F 218 lbs 68 in 33.15 kg/m2 2.18 m2 97 % 08/27/2013 9:20:00 AM 148 mmHg 92 mmHg 78 bpm 18 rpm 97.6 F 218.375 lbs 68 in 33.2035 kg/m 2.18 m 99 % 08/17/2013 5:10:00 PM 144 mmHg 80 mmHg 84 bpm 20 rpm 98 F 226 lbs 68 in 34.36 kg/m2 2.22 m2 98 % 05/21/2013 3:35:00 PM 136 mmHg 76 mmHg 70 bpm 18 rpm 98 F 226 lbs 68 in 34.3628 kg/m 2.2177 m 04/26/2013 8:33:00 AM 164 mmHg 104 mmHg 82 bpm 16 rpm 96.6 F 235 lbs 68 in 35.73 kg/m2 2.26 m2 12/22/2012 11:06:00 AM 134 mmHg 70 mmHg 76 bpm 18 rpm 97.6 F 250 lbs 68 in 38.012 kg/m 2.3325 m 12/12/2012 2:19:00 PM 144 mmHg 80 mmHg 76 bpm 20 rpm 97 F 260 lbs 68 in 39.53 kg/m2 2.38 m2 12/06/2012 3:42:00 PM 142 mmHg 96 mmHg 68 bpm 16 rpm 98 F 257 lbs 68 in 39.0763 kg/m 2.3649 m 11/24/2012 10:44:00 AM 132 mmHg 78 mmHg 75 bpm 18 rpm 98 F 256 lbs 68 in 38.92 kg/m2 2.36 m2 99 % 10/10/2012 3:45:00 PM 144 mmHg 80 mmHg 78 bpm 18 rpm 98.3 F 264 lbs 68 in 40.1407 kg/m 2.3969 m 09/18/2012 4:00:00 PM 134 mmHg 92 mmHg 64 bpm 16 rpm 97 F 270 lbs 68 in 41.05 kg/m2 2.42 m2 09/01/2012 8:24:00 AM 156 mmHg 82 mmHg 90 bpm 22 rpm 97.9 F 269 lbs 68 in 40.9009 kg/m 2.4195 m 98 % 08/21/2012 3:03:00 PM 134 mmHg 78 mmHg 80 bpm 18 rpm 97.8 F 264 lbs 68 in 40.14 kg/m2 2.40 m2 08/01/2012 9:56:00 AM 152 mmHg 90 mmHg 78 bpm 22 rpm 98 F 263 lbs 68 in 39.9886 kg/m 2.3924 m 07/11/2012 4:21:00 PM 132 mmHg 68 mmHg 68 bpm 18 rpm 97.9 F 265.25 lbs 68 in 40.33 kg/m2 2.40 m2 06/14/2012 3:38:00 PM 110 mmHg 74 mmHg 84 bpm 18 rpm 97.1 F 272 lbs 68 in 41.357 kg/m 2.433 m 05/04/2012 9:51:00 AM 148 mmHg 80 mmHg 76 bpm 18 rpm 98.8 F 271 lbs 68 in 41.20 kg/m2 2.43 m2 12/23/2011 11:17:00 AM 136 mmHg 92 mmHg 82 bpm 16 rpm 96.4 F 285 lbs 68 in 43.3337 kg/m 2.4904 m 12/16/2011 3:43:00 PM 128 mmHg 70 mmHg 76 bpm 18 rpm 98.2 F 232 lbs 12/16/2011 3:23:00 PM 136 mmHg 70 mmHg 70 bpm 18 rpm 97.2 F 286 lbs 68 in 43.4857 kg/m 2.4948 m 12/06/2011 4:18:00 PM 142 mmHg 94 mmHg 74 bpm 16 rpm 97 F 290.5 lbs 68 in 44.17 kg/m2 2.51 m2 11/11/2011 3:41:00 PM 132 mmHg 78 mmHg 74 bpm 18 rpm 98.2 F 283 lbs 66 in 45.6769 kg/m 2.4449 m 10/28/2011 3:42:00 PM 144 mmHg 80 mmHg 86 bpm 22 rpm 98 F 286 lbs 68 in 43.49 kg/m2 2.49 m2 96 % 10/19/2011 3:43:00 PM 160 mmHg 98 mmHg 96 bpm 22 rpm 102 F 97 % 10/07/2011 3:37:00 PM 140 mmHg 72 mmHg 76 bpm 18 rpm 98 F 292 lbs 68 in 44.398 kg/m 2.5208 m 04/27/2011 3:39:00 PM 140 mmHg 72 mmHg 74 bpm 18 rpm 96.9 F 295 lbs 68 in 44.85 kg/m2 2.53 m2 04/16/2011 10:20:00 AM 178 mmHg 80 mmHg 76 bpm 22 rpm 98.4 F 295 lbs 68 in 44.8541 kg/m 2.5338 m 12/18/2010 8:58:00 AM 142 mmHg 82 mmHg 68 bpm 20 rpm 97.4 F 285 lbs 11/17/2010 3:26:00 PM 154 mmHg 80 mmHg 82 bpm 18 rpm 98.1 F 288 lbs 68 in 43.7898 kg/m 2.5035 m 10/08/2010 3:30:00 PM 148 mmHg 82 mmHg 76 bpm 18 rpm 98 F 285 lbs 08/18/2010 8:28:00 AM 174 mmHg 100 mmHg 80 bpm 20 rpm 98.7 F 285 lbs 02/03/2010 3:32:00 PM 134 mmHg 76 mmHg 78 bpm 16 rpm 98 F 274 lbs 68 in 41.6611 kg/m 2.4419 m 12/02/2009 3:42:00 PM 150 mmHg 80 mmHg 76 bpm 22 rpm 97.6 F 271 lbs Social History Name Description Comments No Alcohol Use Tobacco Former smoker Alcohol Use - Occasional 1-2 drinks per month Grown Children x1,age 24 Children x2 one grown & one,age 16 at home Attended some college experimented with illicit drugs 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 in History of Procedures Date Ordered Description Order Status 08/29/2015 12:00 AM X-RAY EXAM OF HAND Reviewed 09/18/2015 12:00 AM OFFICE/OUTPATIENT VISIT EST Reviewed 11/10/2015 12:00 AM GLYCOSYLATED HEMOGLOBIN TEST Reviewed 10/07/2011 12:00 AM C-REACTIVE PROTEIN Reviewed 10/07/2011 12:00 AM ASSAY OF BLOOD/URIC ACID Reviewed 10/07/2011 12:00 AM RHEUMATOID FACTOR QUANT Reviewed 10/07/2011 12:00 AM ANTINUCLEAR ANTIBODIES (GALINA) Reviewed 10/07/2011 12:00 AM RBC SED RATE AUTOMATED Reviewed 10/07/2011 12:00 AM FIBRINOGEN ACTIVITY Reviewed 10/07/2011 12:00 AM VITAMIN D 25 HYDROXY Reviewed 10/07/2011 12:00 AM VITAMIN B-12 Reviewed 10/07/2011 12:00 AM ASSAY OF VITAMIN B-6 Reviewed 10/07/2011 12:00 AM GLYCOSYLATED HEMOGLOBIN TEST Reviewed 10/07/2011 12:00 AM US EXAM ABDOM COMPLETE Reviewed 10/28/2011 12:00 AM CHEST X-RAY 2VW FRONTAL&LATL Reviewed 05/05/2016 12:00 AM MAMMOGRAM SCREENING Reviewed 05/05/2016 12:00 AM CHEST X-RAY 2VW FRONTAL&LATL Reviewed 05/05/2016 12:00 AM GLYCOSYLATED HEMOGLOBIN TEST Reviewed 05/05/2016 12:00 AM LIPID PANEL Reviewed 05/05/2016 12:00 AM COMPREHEN METABOLIC PANEL Reviewed 05/05/2016 12:00 AM VITAMIN B-12 Reviewed 05/05/2016 12:00 AM ALBUMIN URINE MICROALBUMIN QUANTIATIVE Reviewed 12/13/2011 12:00 AM DRAIN/INJ JOINT/BURSA W/O US Reviewed 12/13/2011 12:00 AM Kenalog per 10Mg Im-[facility]#[address]-08(Man) Reviewed 12/23/2011 12:00 AM DRAIN/INJ JOINT/BURSA W/O US Reviewed 12/23/2011 12:00 AM Kenalog 40 Mg [facility]#[id number] Reviewed 11/19/2016 12:00 AM X-RAY EXAM OF HAND Reviewed 01/19/2017 12:00 AM COMPLETE CBC W/AUTO DIFF WBC Reviewed 01/19/2017 12:00 AM COMPREHEN METABOLIC PANEL Reviewed 01/19/2017 12:00 AM GLYCOSYLATED HEMOGLOBIN TEST Reviewed 05/25/2012 12:00 AM INJ TRIGGER POINT 1/2 MUSCL Reviewed 05/25/2012 12:00 AM Kenalog, Per 10 Mg [facility]#[id number] Reviewed 06/14/2012 12:00 AM DRAIN/INJ JOINT/BURSA W/O US Reviewed 06/14/2012 12:00 AM Kenalog, Per 10 Mg [facility]#9911-7681-79 Reviewed 05/09/2017 12:00 AM MAMMOGRAPHY SCREENING, DIGITAL Reviewed 07/11/2012 12:00 AM THER/PROPH/DIAG INJ SC/IM Reviewed 07/11/2012 12:00 AM Decadron 1 mg [facility]#[id number] (Manuel) Reviewed 07/11/2012 12:00 AM Depo-Medrol 80 mg [facility]#[id number] Reviewed 08/21/2012 12:00 AM ASSAY CARBOXYHB QUANT Reviewed 09/01/2017 12:00 AM RADIOLOGIC EXAMINATION KNEE 1/2 VIEWS Reviewed 09/18/2012 12:00 AM DRAIN/INJ JOINT/BURSA W/O US Reviewed 09/18/2012 12:00 AM Kenalog, Per 10 Mg [facility]#0138-6853-50 Reviewed 10/25/2017 12:00 AM RADIOLOGIC EXAMINATION KNEE 3 VIEWS Reviewed 10/13/2012 12:00 AM COMPREHEN METABOLIC PANEL Reviewed 10/13/2012 12:00 AM LIPID PANEL Reviewed 10/13/2012 12:00 AM GLYCOSYLATED HEMOGLOBIN TEST Reviewed 10/13/2012 12:00 AM MICROALBUMIN SEMIQUANT Reviewed 11/09/2017 12:00 AM RADEX SPINE LUMBOSACRAL 2/3 VIEWS Reviewed 12/02/2017 12:00 AM RADIOLOGIC EXAMINATION KNEE 3 VIEWS Reviewed 12/02/2017 12:00 AM Decadron 8mg Injection Reviewed 12/02/2017 12:00 AM Depo-Medrol 80mg Injection Reviewed 01/03/2018 12:00 AM COMPREHEN METABOLIC PANEL Reviewed 01/03/2018 12:00 AM LIPID PANEL Reviewed 01/03/2018 12:00 AM GLYCOSYLATED HEMOGLOBIN TEST Reviewed 01/03/2018 12:00 AM VITAMIN B-12 Reviewed 04/15/2010 12:00 AM MAMMOGRAM SCREENING Reviewed 12/06/2012 12:00 AM DRAIN/INJ JOINT/BURSA W/O US Reviewed 12/06/2012 12:00 AM Kenalog, Per 10 Mg [facility]#[id number] Reviewed 12/22/2012 12:00 AM TOTAL CORTISOL Reviewed 05/09/2018 12:00 AM MAMMOGRAPHY SCREENING, DIGITAL Reviewed 05/11/2018 12:00 AM CHEST X-RAY 2VW FRONTAL&LATL Reviewed 05/11/2018 12:00 AM Mammogram, screening, bilateral Reviewed 06/27/2018 12:00 AM MRI JOINT UPR EXTR W/O&W/DYE Reviewed 04/26/2013 12:00 AM DRAIN/INJ JOINT/BURSA W/O US Reviewed 04/26/2013 12:00 AM Kenalog, Per 10 Mg [facility]#7222-7150-55 Reviewed 05/10/2013 12:00 AM DRAIN/INJ JOINT/BURSA W/O US Reviewed 05/10/2013 12:00 AM Kenalog, Per 10 Mg [facility]#4812-8408-47 Reviewed 05/10/2013 12:00 AM DRAIN/INJ JOINT/BURSA W/O US Reviewed 05/10/2013 12:00 AM Kenalog, Per 10 Mg [facility]#5926-1915-99 Reviewed 05/28/2013 12:00 AM MAMMOGRAM SCREENING Reviewed 05/21/2013 12:00 AM COMPLETE CBC AUTOMATED Reviewed 05/21/2013 12:00 AM ASSAY OF FREE THYROXINE Reviewed 05/21/2013 12:00 AM ASSAY THYROID STIM HORMONE Reviewed 05/21/2013 12:00 AM GLYCOSYLATED HEMOGLOBIN TEST Reviewed 05/21/2013 12:00 AM ASSAY OF IRON Reviewed 05/21/2013 12:00 AM ASSAY OF FOLIC ACID SERUM Reviewed 05/21/2013 12:00 AM VITAMIN B-12 Reviewed 09/28/2018 12:00 AM B12 1000mcg Injection Reviewed 09/28/2018 12:00 AM COMPLETE CBC W/AUTO DIFF WBC Reviewed 09/28/2018 12:00 AM COMPREHEN METABOLIC PANEL Reviewed 09/28/2018 12:00 AM ASSAY THYROID STIM HORMONE Reviewed 09/28/2018 12:00 AM ASSAY OF TOTAL THYROXINE Reviewed 09/28/2018 12:00 AM GLYCOSYLATED HEMOGLOBIN TEST Reviewed 08/27/2013 12:00 AM COMPLETE CBC W/AUTO DIFF WBC Reviewed 08/27/2013 12:00 AM COMPREHEN METABOLIC PANEL Reviewed 08/27/2013 12:00 AM ASSAY OF LIPASE Reviewed 08/27/2013 12:00 AM X-RAY EXAM OF ABDOMEN Reviewed 12/18/2013 12:00 AM Shoulder Min 2Views - MOB Reviewed 01/02/2014 12:00 AM COMPREHEN METABOLIC PANEL Reviewed 01/02/2014 12:00 AM COMPLETE CBC W/AUTO DIFF WBC Reviewed 03/05/2014 12:00 AM DRAIN/INJ JOINT/BURSA W/O US Reviewed 03/05/2014 12:00 AM Kenalog, Per 10 Mg [facility]#6086-5191-43 Reviewed 04/05/2014 12:00 AM COMPLETE CBC W/AUTO DIFF WBC Reviewed 04/05/2014 12:00 AM C-REACTIVE PROTEIN HS Reviewed 04/05/2014 12:00 AM RBC SED RATE AUTOMATED Reviewed 10/08/2010 12:00 AM URINALYSIS NONAUTO W/SCOPE Reviewed 10/08/2010 12:00 AM COMPREHEN METABOLIC PANEL Reviewed 10/08/2010 12:00 AM LIPID PANEL Reviewed 10/08/2010 12:00 AM ASSAY THYROID STIM HORMONE Reviewed 10/08/2010 12:00 AM GLYCOSYLATED HEMOGLOBIN TEST Reviewed 10/08/2010 12:00 AM CHEST X-RAY 2VW FRONTAL&LATL Reviewed 04/29/2014 12:00 AM COMPLETE CBC AUTOMATED Reviewed 04/29/2014 12:00 AM GLYCOSYLATED HEMOGLOBIN TEST Reviewed 04/29/2014 12:00 AM ASSAY OF IRON Reviewed 04/29/2014 12:00 AM MAMMOGRAM SCREENING Reviewed 04/29/2014 12:00 AM Screening mammography, bilateral Reviewed 04/29/2014 12:00 AM LIPID PANEL Reviewed 04/29/2014 12:00 AM CHEST X-RAY 2VW FRONTAL&LATL Reviewed 04/29/2014 12:00 AM MICROALBUMIN QUANTITATIVE Reviewed 04/29/2014 12:00 AM RADEX HIP UNILATERAL COMPLETE MINIMUM 2 VIEWS Reviewed 04/29/2014 12:00 AM RADIOLOGIC EXAMINATION KNEE 3 VIEWS Reviewed 09/20/2014 12:00 AM COMPREHEN METABOLIC PANEL Reviewed 09/20/2014 12:00 AM LIPID PANEL Reviewed 12/13/2014 12:00 AM GLYCOSYLATED HEMOGLOBIN TEST Reviewed 12/13/2014 12:00 AM URINALYSIS AUTO W/SCOPE Reviewed 02/25/2015 12:00 AM COMPLETE CBC W/AUTO DIFF WBC Reviewed 02/25/2015 12:00 AM RBC SED RATE AUTOMATED Reviewed 02/25/2015 12:00 AM C-REACTIVE PROTEIN Reviewed 02/25/2015 12:00 AM COMPREHEN METABOLIC PANEL Reviewed 02/25/2015 12:00 AM X-RAY EXAM OF HIPS Reviewed 03/11/2015 12:00 AM EXTREMITY STUDY Reviewed 04/16/2011 12:00 AM X-RAY EXAM OF HIP Reviewed 04/16/2011 12:00 AM URINALYSIS AUTO W/O SCOPE Reviewed 04/22/2011 12:00 AM URINALYSIS AUTO W/O SCOPE Reviewed 05/05/2011 12:00 AM MAMMOGRAM SCREENING Reviewed 04/28/2015 12:00 AM MAMMOGRAM SCREENING Reviewed 05/08/2015 12:00 AM OFFICE/OUTPATIENT VISIT EST Reviewed 05/23/2015 12:00 AM COMPLETE CBC AUTOMATED Reviewed 05/23/2015 12:00 AM GLYCOSYLATED HEMOGLOBIN TEST Reviewed 05/23/2015 12:00 AM ASSAY OF IRON Reviewed 05/23/2015 12:00 AM LIPID PANEL Reviewed 05/23/2015 12:00 AM CHEST X-RAY 2VW FRONTAL&LATL Reviewed 05/23/2015 12:00 AM MICROALBUMIN QUANTITATIVE Reviewed 03/10/2015 12:00 AM FIBRIN DEGRADATION QUANT Reviewed Results Summary Date and Description Results 12/02/2009 11:11 PM Cholest Cry Stone Ql IR 0.0 %Mammogram -Women over 40 Declined Pap Smear Declined Hgb A1c Fr Bld 0.0 %Dialated Eye Exam- Diabetic Referred Foot Exam-Diabetic Done 10/08/2010 4:08 PM COLOR YELLOW APPEARANCE CLOUDY SPEC GRAV >=1.030 pH 5.5 PROTEIN NEGATIVE GLUCOSE 250 KETONE NEGATIVE BILIRUBIN NEGATIVE BLOOD TRACE- INTACT NITRITE NEGATIVE LEUK SCREEN NEGATIVE WBC/HPF NEGATIVE RBC/HPF RARE CASTS /LPF NEGATIVE CRYSTALS NEGATIVE MUCOUS THRDS NEGATIVE BACTERIA NEGATIVE EPITH CELLS FEW SQUAMOUS TRICHOMONAS NEGATIVE YEAST NEGATIVE CULT SET UP? NO 10/09/2010 6:55 AM TRIGLYCERIDES 132.0 mg/dLCHOLESTEROL 205.0 mg/dLHDL 43.0 mg /dLTOT CHOL/HDL 4.8 LDL (CALC) 136.0 mg/dLTSH 4.050 uIU/mLGLYCOHEMOGLOBIN A1C 8.70 %GLUCOSE 220.0 mg/dLSODIUM 136.0 mmol/LPOTASSIUM 4.0 mmol/LCHLORIDE 102.0 mmol/LCO2 24.0 mmol/LBUN 19.0 mg/dLCREATININE 0.80 mg/dLSGOT/AST 19.0 IU/LSGPT/ ALT 24.0 IU/LALK PHOS 78.0 IU/LTOTAL PROTEIN 7.30 g/dLALBUMIN 4.10 g/dLTOTAL BILI 0.50 mg/dLCALCIUM 9.60 mg/dLAGE 45 GFR NonAA 78 GFR AA 95 eGFR >60 mL/min/ 1.73 m2eGFR AA* >60 10/13/2011 8:09 AM URIC ACID 5.6 mg/Cynthia REACTIVE PROTEIN 17.0 mg/LRA Factor < 10.0 FIBRINOGEN 276.0 mg/dLGLYCOHEMOGLOBIN A1C 7.90 %VITAMIN B12 591.0 pg/mL 08/21/2012 3:45 PM Carbon Monoxide 2.3 10/16/2012 6:25 AM CREAT UR 104.30 mg/dLMICROALBUMIN UR 5.0 ug/mLALB:CREAT RATIO 5 TRIGLYCERIDES 132.0 mg/dLCHOLESTEROL 168.0 mg/dLHDL 42.0 mg/dLTOT CHOL/ HDL 4.0 LDL (CALC) 100.0 mg/dLGLUCOSE 202.0 mg/dLSODIUM 137.0 mmol/LPOTASSIUM 4.0 mmol/LCHLORIDE 104.0 mmol/LCO2 25.0 mmol/LBUN 20.0 mg/dLCREATININE 0.80 mg/ dLSGOT/AST 11.0 IU/LSGPT/ALT 19.0 IU/LALK PHOS 72.0 IU/LTOTAL PROTEIN 7.60 g/ dLALBUMIN 4.30 g/dLTOTAL BILI 0.60 mg/dLCALCIUM 9.90 mg/dLAGE 47 GFR NonAA 78 GFR AA 95 eGFR 60 eGFR AA* 60 GLYCOHEMOGLOBIN A1C 7.20 % 05/21/2013 4:48 PM WBC 10.3 RBC 4.26 HGB 12.70 g/dLHCT 37.50 %MCV 88.0 fLMCH 29.80 pgMCHC 33.90 g/dLRDW SD 42 RDW CV 13.20 %MPV 10.80 fLPLT 270 NRBC# 0.00 NRBC% 0.0 %NEUT 57.20 %%LYMP 34.30 %%MONO 6.70 %%EOS 1.50 %%BASO 0.30 %#NEUT 5.91 #LYMP 3.54 #MONO 0.69 #EOS 0.16 #BASO 0.03 MANUAL DIFF NOT IND IRON TOTAL 39.0 ug/dLHGB A1C 7.50 %Est Avg Glucose 168.6 mg/dLFREE T4 0.92 TSH 2.850 uIU/ mLVITAMIN B12 434.0 pg/mLFOLATE 16.70 ng/mL 08/27/2013 9:55 AM WBC 8.6 RBC 4.58 HGB 13.90 g/dLHCT 39.40 %MCV 86.0 fLMCH 30.30 pgMCHC 35.30 g/dLRDW SD 40 RDW CV 12.80 %MPV 10.30 fLPLT 298 NRBC# 0.00 NRBC% 0.0 %NEUT 64.50 %%LYMP 28.20 %%MONO 5.60 %%EOS 1.50 %%BASO 0.20 %#NEUT 5.52 #LYMP 2.42 #MONO 0.48 #EOS 0.13 #BASO 0.02 MANUAL DIFF NOT IND GLUCOSE 154.0 mg/dLSODIUM 140.0 mmol/LPOTASSIUM 3.80 mmol/LCHLORIDE 104.0 mmol/LCO2 26.0 mmol/LBUN 10.0 mg/dLCREATININE 0.80 mg/dLSGOT/AST 16.0 IU/LSGPT/ALT 22.0 IU /LALK PHOS 65.0 IU/LTOTAL PROTEIN 7.40 g/dLALBUMIN 4.20 g/dLTOTAL BILI 0.90 mg/ dLCALCIUM 9.50 mg/dLAGE 48 GFR NonAA 77 GFR AA 93 eGFR >60 mL/min/1.73 m2eGFR AA * >60 LIPASE 18.0 U/L 01/02/2014 10:02 AM GLUCOSE 134.0 mg/dLSODIUM 139.0 mmol/LPOTASSIUM 4.30 mmol/ LCHLORIDE 101.0 mmol/LCO2 25.0 mmol/LBUN 20.0 mg/dLCREATININE 1.0 mg/dLSGOT/AST 15.0 IU/LSGPT/ALT 19.0 IU/LALK PHOS 80.0 IU/LTOTAL PROTEIN 7.20 g/dLALBUMIN 4.20 g/dLTOTAL BILI 0.90 mg/dLCALCIUM 9.70 mg/dLAGE 48 GFR NonAA 60 GFR AA 73 eGFR 60 eGFR AA* >60 WBC 10.5 RBC 4.69 HGB 14.0 g/dLHCT 40.80 %MCV 87.0 fLMCH 29.90 pgMCHC 34.30 g/dLRDW SD 40 RDW CV 12.70 %MPV 10.60 fLPLT 274 NRBC# 0.00 NRBC% 0.0 %NEUT 56.50 %%LYMP 34.90 %%MONO 5.80 %%EOS 2.40 %%BASO 0.40 %#NEUT 5.92 #LYMP 3.65 #MONO 0.61 #EOS 0.25 #BASO 0.04 MANUAL DIFF NOT IND 04/05/2014 6:00 PM WBC 7.3 RBC 4.19 HGB 12.50 g/dLHCT 37.10 %MCV 89.0 fLMCH 29.80 pgMCHC 33.70 g/dLRDW SD 40 RDW CV 12.70 %MPV 10.40 fLPLT 261 NRBC# 0.00 NRBC% 0.0 %NEUT 43.40 %%LYMP 48.0 %%MONO 5.90 %%EOS 2.30 %%BASO 0.40 %#NEUT 3.17 #LYMP 3.51 #MONO 0.43 #EOS 0.17 #BASO 0.03 MANUAL DIFF NOT IND C REACTIVE PROTEIN 6.0 mg/LSEDRATE 11.0 mm/hr 05/03/2014 8:50 AM MICROALBUMIN UR 7.0 ug/mLTRIGLYCERIDES 88.0 mg/dLCHOLESTEROL 190.0 mg/dLHDL 54.0 mg/dLTOT CHOL/HDL 3.5 LDL (CALC) 118.0 mg/dLWBC 6.2 RBC 4.63 HGB 14.0 g/dLHCT 40.90 %MCV 88.0 fLMCH 30.20 pgMCHC 34.20 g/dLRDW SD 41 RDW CV 12.70 %MPV 10.70 fLPLT 286 NRBC# 0.00 NRBC% 0.0 IRON TOTAL 117.0 ug/ dLHGB A1C 7.70 %Est Avg Glucose 174.3 mg/dL 12/17/2014 12:00 AM Treatment/Therapy intra-articular injection of left hip Response to treatment @ 80% improved x 2 mos followed by gradual return 12/17/2014 8:00 AM TRIGLYCERIDES 87.0 mg/dLCHOLESTEROL 155.0 mg/dLHDL 40.0 mg/ dLTOT CHOL/HDL 3.9 LDL (CALC) 98.0 mg/dLGLUCOSE 140.0 mg/dLSODIUM 138.0 mmol/ LPOTASSIUM 3.90 mmol/LCHLORIDE 104.0 mmol/LCO2 23.0 mmol/LBUN 13.0 mg/ dLCREATININE 0.80 mg/dLSGOT/AST 14.0 IU/LSGPT/ALT 18.0 IU/LALK PHOS 64.0 IU/ LTOTAL PROTEIN 7.50 g/dLALBUMIN 4.30 g/dLTOTAL BILI 0.80 mg/dLCALCIUM 9.50 mg/ dLAGE 49 GFR NonAA 77 GFR AA 93 eGFR >60 mL/min/1.73 m2eGFR AA* >60 HGB A1C 6.30 %Est Avg Glucose 134.1 mg/dLCOLOR YELLOW APPEARANCE CLEAR SPEC GRAV 1.015 pH 6.0 PROTEIN NEGATIVE GLUCOSE NEGATIVE KETONE NEGATIVE BILIRUBIN NEGATIVE BLOOD NEGATIVE NITRITE NEGATIVE LEUK SCREEN NEGATIVE WBC/HPF NEGATIVE RBC/HPF NEGATIVE CASTS/LPF NEGATIVE CRYSTALS NEGATIVE MUCOUS THRDS NEGATIVE BACTERIA FEW EPITH CELLS FEW SQUAMOUS TRICHOMONAS NEGATIVE YEAST NEGATIVE CULT SET UP? NO 02/25/2015 12:40 PM WBC 7.8 RBC 4.08 HGB 12.20 g/dLHCT 36.80 %MCV 90.0 fLMCH 29.90 pgMCHC 33.20 g/dLRDW SD 42 RDW CV 12.90 %MPV 10.30 fLPLT 278 NRBC# 0.00 NRBC% 0.0 %NEUT 49.70 %%LYMP 41.90 %%MONO 5.70 %%EOS 2.40 %%BASO 0.30 %#NEUT 3.89 #LYMP 3.28 #MONO 0.45 #EOS 0.19 #BASO 0.02 MANUAL DIFF NOT IND SEDRATE 8.0 mm/hrC REACTIVE PROTEIN <0.5 MG/DLGLUCOSE 164.0 mg/dLSODIUM 142.0 mmol/ LPOTASSIUM 4.10 mmol/LCHLORIDE 106.0 mmol/LCO2 25.0 mmol/LBUN 23.0 mg/ dLCREATININE 0.90 mg/dLSGOT/AST 18.0 IU/LSGPT/ALT 19.0 IU/LALK PHOS 61.0 IU/ LTOTAL PROTEIN 7.10 g/dLALBUMIN 3.40 g/dLTOTAL BILI 0.70 mg/dLCALCIUM 9.50 mg/ dLAGE 49 GFR NonAA 67 GFR AA 81 eGFR >60 mL/min/1.73 m2eGFR AA* >60 03/10/2015 5:06 PM D-DIMER QUANT 0.64 05/24/2015 9:44 AM WBC 7.6 RBC 4.69 HGB 14.20 g/dLHCT 42.0 %MCV 90.0 fLMCH 30.30 pgMCHC 33.80 g/dLRDW SD 41 RDW CV 12.70 %MPV 10.30 fLPLT 261 NRBC# 0.00 NRBC% 0.0 %NEUT 52.0 %%LYMP 36.10 %%MONO 6.20 %%EOS 5.20 %%BASO 0.50 %#NEUT 3.96 #LYMP 2.75 #MONO 0.47 #EOS 0.40 #BASO 0.04 MANUAL DIFF NOT IND TRIGLYCERIDES 106.0 mg/dLCHOLESTEROL 189.0 mg/dLHDL 48.0 mg/dLTOT CHOL/HDL 3.9 LDL (CALC) 120.0 mg/dLIRON TOTAL 86.0 ug/dLMICROALBUMIN UR 12.0 ug/mLHemoglobin A1c 6.70 %Estim. Avg Glu (eAG) 146 mg/dL 11/14/2015 6:40 AM Hemoglobin A1c 6.80 %Estim. Avg Glu (eAG) 148 05/05/2016 10:20 AM HGB A1C 8.10 %Est Avg Glucose 185.8 mg/dLMICROALBUMIN UR 14.0 ug/mLTRIGLYCERIDES 146.0 mg/dLCHOLESTEROL 185.0 mg/dLHDL 43.0 mg/dLTOT CHOL /HDL 4.3 LDL (CALC) 113.0 mg/dLVITAMIN B12 442.0 pg/mLGLUCOSE 145.0 mg/dLSODIUM 138.0 mmol/LPOTASSIUM 4.30 mmol/LCHLORIDE 101.0 mmol/LCO2 24.0 mmol/LBUN 17.0 mg /dLCREATININE 0.80 mg/dLSGOT/AST 18.0 IU/LSGPT/ALT 29.0 IU/LALK PHOS 67.0 IU/ LTOTAL PROTEIN 7.20 g/dLALBUMIN 4.20 g/dLTOTAL BILI 0.70 mg/dLCALCIUM 9.60 mg/ dLAGE 51 GFR NonAA 76 GFR AA 92 eGFR >60 mL/min/1.73meGFR AA* >60 01/19/2017 10:04 AM HGB A1C 10.50 %Est Avg Glucose 254.7 mg/dLGLUCOSE 418.0 mg/ dLSODIUM 135.0 mmol/LPOTASSIUM 4.90 mmol/LCHLORIDE 98.0 mmol/LCO2 26.0 mmol/ LBUN 16.0 mg/dLCREATININE 1.0 mg/dLSGOT/AST 18.0 IU/LSGPT/ALT 27.0 IU/LALK PHOS 100.0 IU/LTOTAL PROTEIN 7.20 g/dLALBUMIN 4.20 g/dLTOTAL BILI 0.60 mg/dLCALCIUM 9.50 mg/dLAGE 51 GFR NonAA 59 GFR AA 72 eGFR 59 eGFR AA* >60 WBC 7.6 RBC 4.69 HGB 13.40 g/dLHCT 39.90 %MCV 85.0 fLMCH 28.60 pgMCHC 33.60 g/dLRDW SD 38 RDW CV 12.50 %MPV 10.80 fLPLT 303 NRBC# 0.00 NRBC% 0.0 %NEUT 55.80 %%LYMP 35.20 %%MONO 4.80 %%EOS 3.40 %%BASO 0.50 %#NEUT 4.22 #LYMP 2.66 #MONO 0.36 #EOS 0.26 #BASO 0.04 MANUAL DIFF NOT IND 01/14/2018 8:20 AM GLUCOSE 164.0 mg/dLSODIUM 140.0 mmol/LPOTASSIUM 4.10 mmol/ LCHLORIDE 102.0 mmol/LCO2 31.0 mmol/LBUN 19.0 mg/dLCREATININE 0.80 mg/dLSGOT/ AST 21.0 IU/LSGPT/ALT 25.0 IU/LALK PHOS 80.0 IU/LTOTAL PROTEIN 7.20 g/dLALBUMIN 4.10 g/dLTOTAL BILI 0.70 mg/dLCALCIUM 9.10 mg/dLAGE 52 GFR NonAA 76 GFR AA 92 eGFR >60 mL/min/1.73meGFR AA* >60 TRIGLYCERIDES 110.0 mg/dLCHOLESTEROL 180.0 mg/dLHDL 47.0 mg/dLTOT CHOL/HDL 3.8 LDL (CALC) 111.0 mg/dLHGB A1C 7.60 %Est Avg Glucose 171.4 mg/dLVITAMIN B12 493.0 pg/mL 09/28/2018 9:00 AM HGB A1C 9.0 Est Avg Glucose 211.6 GLUCOSE 174 SODIUM 138 POTASSIUM 3.5 CHLORIDE 102 CO2 26 BUN 12 CREATININE 0.9 SGOT/AST 18 SGPT/ALT 18 ALK PHOS 81 TOTAL PROTEIN 7.7 ALBUMIN 4.3 TOTAL BILI 0.7 CALCIUM 9.4 AGE 53 GFR NonAA 66 GFR AA 80 eGFR 66 eGFR AA* >60 WBC 8.7 RBC 4.44 HGB 12.6 HCT 37.0 MCV 83 MCH 28.4 MCHC 34.1 RDW SD 38 RDW CV 12.5 MPV 9.8 PLT 370 NRBC# 0.00 NRBC% 0.0 %NEUT 64.6 %LYMP 28.1 %MONO 6.5 %EOS 0.1 %BASO 0.5 #NEUT 5.64 #LYMP 2.45 # MONO 0.57 #EOS 0.01 #BASO 0.04 MANUAL DIFF NOT IND T4 7.5 TSH 1.55 History Of Immunizations Not available. History of Past Illness Name Date of Onset Comments Essential Hypertension Dec 02 2009 3:44PM Hyperlipidemia Dec 02 2009 3:44PM Diabetes Mellitus, Type II, Uncontrolled Dec 02 2009 3:44PM Hypertension Diabetes Mellitus, Type II tests twice daily Depressive Disorder Hyperlipidemia, Mixed Syncope Routine gynecological examination Feb 03 2010 3:34PM Shortness Of Breath Feb 03 2010 3:34PM Diabetes Mellitus, Type II Feb 03 2010 3:34PM Essential Hypertension Feb 03 2010 3:34PM Hormone replacement therapy Obesity Overactive bladder Fibromyalgia 05/26/2013 Rash Of Skin Aug 18 2010 8:36AM Overactive bladder 12/18/2014 Dysuria Oct 08 2010 3:29PM Diabetes Mellitus, Type II Oct 08 2010 3:29PM Hyperlipidemia, Mixed Oct 08 2010 3:29PM Hypertension Oct 08 2010 3:29PM Hypothyroidism Oct 08 2010 3:29PM Shortness of breath Oct 08 2010 3:29PM Osteoarthritis, Left Hip 03/10/2015 Left hip pain 03/10/2015 Lumbago 06/04/2015 Diabetes Mellitus, Type II Nov 17 2010 3:26PM Hypothyroidism, Acquired Nov 17 2010 3:26PM Hyperlipidemia, Mixed Nov 17 2010 3:26PM Depressive Disorder Nov 17 2010 3:26PM Hypertension Nov 17 2010 3:26PM Diabetes Mellitus, Type II Dec 18 2010 9:00AM Hypothyroidism, Acquired Dec 18 2010 9:00AM Hyperlipidemia, Mixed Dec 18 2010 9:00AM Depressive Disorder Dec 18 2010 9:00AM Hypertension Dec 18 2010 9:00AM Osteoarthritis,Shoulder Dec 18 2010 9:00AM Ganglion cyst 12/14/2016 Essential Hypertension 01/20/2017 Uncontrolled type 2 diabetes mellitus without complication, without long-term current use of insulin 01/20/2017 Pain in joint; Left Hip Apr 16 2011 10:20AM Essential Hypertension Apr 16 2011 10:20AM Diabetes Mellitus, Type II Apr 16 2011 10:20AM Osteoarthritis, Left Hip Apr 16 2011 10:20AM Overactive bladder Apr 16 2011 10:20AM Diabetes Mellitus, Type II Apr 27 2011 3:38PM Essential Hypertension Apr 27 2011 3:38PM Screening Examination for Breast Cancer Apr 27 2011 3:38PM Bronchitis, Acute Apr 27 2011 3:38PM Diabetes Mellitus, Type II Oct 07 2011 3:39PM Hyperlipidemia, Mixed Oct 07 2011 3:39PM Hypertension Oct 07 2011 3:39PM Polyarthralgia Oct 07 2011 3:39PM Fatigue Oct 07 2011 3:39PM Malnutrition Oct 07 2011 3:39PM Pneumonia Oct 19 2011 3:47PM Bacterial Pneumonia - Improving Oct 28 2011 3:45PM Bacterial Pneumonia - Improving Nov 11 2011 3:43PM Depressive Disorder Nov 11 2011 3:43PM Diabetes Mellitus, Type II Nov 11 2011 3:43PM Hypertension Nov 11 2011 3:43PM Pain in joint; Bilateral Hip Feb 2011 4:20PM Bursitis Feb 2011 4:20PM Pain in joint; Knee b 2011 4:20PM Fibromyalgia Feb 2011 4:20PM Lumbago Feb 2011 4:20PM Cervicalgia Feb 2011 4:20PM Trochanteric Bursitis Feb 2011 9:26AM Insomnia Dec 16 2011 3:26PM Dermatitis b 2011 3:26PM Otitis Externa, Acute - Right Dec 16 2011 3:26PM Pain in joint; Knee Dec 23 2011 11:24AM Fibromyalgia Dec 23 2011 11:24AM Lumbago Dec 23 2011 11:24AM Cervicalgia Dec 23 2011 11:24AM Osteoarthritis of knee Dec 23 2011 1:04PM Diabetes Mellitus, Type II May 04 2012 9:53AM Hyperlipidemia, Mixed May 04 2012 9:53AM Hypertension May 04 2012 9:53AM Polyarthralgia May 04 2012 9:53AM Fatigue May 04 2012 9:53AM Malnutrition May 04 2012 9:53AM Myofascial pain May 25 2012 4:23PM Pain in joint; Knee Jun 14 2012 3:45PM Fibromyalgia Jun 14 2012 3:45PM Lumbago Jun 14 2012 3:45PM Bursitis Jun 14 2012 3:45PM Trochanteric Bursitis Jun 14 2012 4:19PM Sinusitis, Acute Jul 11 2012 4:23PM Back Pain with Radiation Aug 01 2012 9:59AM Syncope Aug 21 2012 3:05PM Diabetes Mellitus, Type II Aug 21 2012 3:05PM Hypertension Aug 21 2012 3:05PM Toxic effect of carbon monoxide Aug 21 2012 3:05PM Diabetes Mellitus, Type II Sep 01 2012 8:27AM Bursitis Sep 18 2012 4:06PM Fibromyalgia Sep 18 2012 4:06PM Lumbago Sep 18 2012 4:06PM Trochanteric Bursitis Sep 18 2012 4:45PM Pain in joint; shoulder region, Right Oct 10 2012 3:48PM Hypertension Oct 13 2012 8:06AM Diabetes Mellitus, Type II Oct 13 2012 8:06AM Hyperlipidemia, Mixed Oct 13 2012 8:06AM SI joint pain Sep 18 2012 4:06PM Pain in joint; shoulder region-right Nov 24 2012 10:47AM Bursitis Dec 06 2012 3:44PM Diabetes Mellitus, Type II Dec 12 2012 2:22PM Hypoglycemia Dec 12 2012 2:22PM Chest Pain, Atypical Dec 12 2012 2:22PM Subacromial Bursitis Dec 06 2012 4:21PM Diabetes Mellitus, Type II Dec 22 2012 11:08AM Hypertension Dec 22 2012 11:08AM Adrenal Insufficiency Dec 22 2012 11:08AM Hypertension Feb 06 2013 9:38AM Diabetes Mellitus, Type II Feb 06 2013 9:38AM Hyperlipidemia, Mixed Feb 06 2013 9:38AM Bursitis Apr 26 2013 8:43AM Fibromyalgia Apr 26 2013 8:43AM Lumbago Apr 26 2013 8:43AM Trochanteric Bursitis Apr 26 2013 9:20AM Osteoarthritis of knee May 10 2013 8:10AM Osteoarthritis of shoulder May 10 2013 8:23AM Screening Examination for Breast Cancer May 21 2013 3:38PM Diabetes Mellitus, Type II May 21 2013 3:38PM Hyperlipidemia, Mixed May 21 2013 3:38PM Hypertension May 21 2013 3:38PM Anemia, Iron Deficiency, unspecified May 21 2013 3:38PM Fibromyalgia May 21 2013 3:38PM Sinusitis, Acute Aug 17 2013 5:11PM Abdominal Pain Aug 27 2013 9:23AM Nausea With Vomiting Aug 27 2013 9:23AM Diarrhea Aug 27 2013 9:23AM Fibromyalgia Aug 27 2013 9:23AM Depressive Disorder Aug 27 2013 9:23AM Hyperlipidemia, Mixed Aug 27 2013 9:23AM Diabetes Mellitus, Type II Sep 13 2013 9:27AM Essential Hypertension Sep 13 2013 9:27AM Hyperlipidemia Sep 13 2013 9:27AM Fibromyalgia Sep 13 2013 9:27AM Pain in joint; shoulder region, Right Dec 18 2013 9:25AM Osteoarthritis, Left Hip Dec 18 2013 9:25AM Pain in joint; shoulder region, Right Jan 02 2014 8:37AM Osteoarthritis, Left Hip Jan 02 2014 8:37AM Lumbago Jan 02 2014 8:37AM Fatigue Jan 02 2014 8:37AM Osteoarthritis of shoulder Mar 05 2014 3:24PM Diarrhea Apr 05 2014 5:15PM Headache Apr 05 2014 5:15PM Nausea Apr 05 2014 5:15PM Fatigue Apr 05 2014 5:15PM Viral Syndrome Apr 05 2014 5:15PM Gastroparesis Apr 05 2014 5:15PM Insect Bite without infection Apr 05 2014 5:15PM Screening Examination for Breast Cancer Apr 29 2014 11:08AM Diabetes Mellitus, Type II Apr 29 2014 11:08AM Hyperlipidemia, Mixed Apr 29 2014 11:08AM Hypertension Apr 29 2014 11:08AM Anemia, Iron Deficiency, unspecified Apr 29 2014 11:08AM Fibromyalgia Apr 29 2014 11:08AM Shortness of breath Apr 29 2014 11:08AM Left hip pain Apr 29 2014 11:08AM Osteoarthritis of both knees Apr 29 2014 11:08AM Lumbago Apr 29 2014 1:10PM Pain in joint; shoulder region, Right Apr 29 2014 1:10PM Osteoarthritis, Left Hip Apr 29 2014 1:10PM Fatigue Apr 29 2014 1:10PM Lumbago Jun 11 2014 3:51PM Pain in joint; shoulder region, Right Jun 11 2014 3:51PM Osteoarthritis, Left Hip Jun 11 2014 3:51PM Fatigue Jun 11 2014 3:51PM Chronic Right Pain in joint; Knee Jun 11 2014 3:51PM Gastroenteritis Jul 03 2014 2:11PM Essential Hypertension Jul 18 2014 10:37AM Diabetes Mellitus, Type II Jul 18 2014 10:37AM Hyperlipidemia, Mixed Jul 18 2014 10:37AM Fibromyalgia Jul 18 2014 10:37AM Depression Jul 18 2014 10:37AM Chronic Right Pain in joint; Knee Jul 29 2014 11:14AM Lumbago Jul 29 2014 11:14AM Pain in joint; shoulder region, Right Jul 29 2014 11:14AM Osteoarthritis, Left Hip Jul 29 2014 11:14AM Fatigue Jul 29 2014 11:14AM Chronic Right Pain in joint; Knee Sep 05 2014 4:01PM Lumbago Sep 05 2014 4:01PM Pain in joint; shoulder region, Right Sep 05 2014 4:01PM Osteoarthritis, Left Hip Sep 05 2014 4:01PM Fatigue Sep 05 2014 4:01PM Diabetes Mellitus, Type II Sep 20 2014 9:55AM Hyperlipidemia, Mixed Sep 20 2014 9:55AM Hypertension Sep 20 2014 9:55AM Chronic Right Pain in joint; Knee Oct 02 2014 4:30PM Lumbago Oct 02 2014 4:30PM Pain in joint; shoulder region, Right Oct 02 2014 4:30PM Osteoarthritis, Left Hip Oct 02 2014 4:30PM Fatigue Oct 02 2014 4:30PM Chronic Right Pain in joint; Knee Oct 29 2014 3:50PM Lumbago Oct 29 2014 3:50PM Pain in joint; shoulder region, Right Oct 29 2014 3:50PM Osteoarthritis, Left Hip Oct 29 2014 3:50PM Fatigue Oct 29 2014 3:50PM Chronic Right Pain in joint; Knee Dec 12 2014 3:20PM Lumbago Feb 2014 3:20PM Pain in joint; shoulder region, Right Dec 12 2014 3:20PM Osteoarthritis, Left Hip Dec 12 2014 3:20PM Fatigue b 2014 3:20PM Diabetes Mellitus, Type II b 2014 12:09PM Dysuria b 2014 12:09PM Gastroesophageal Reflux Feb 2014 8:20AM Diabetes Mellitus, Type II b 2014 8:20AM Hyperlipidemia, mixed Dec 17 2014 8:20AM Hypertension b 2014 8:20AM Overactive bladder b 2014 8:20AM Chronic pain syndrome Feb 05 2015 11:45AM Severe Left Anterior Hip pain, chronic, left Worsening Feb 25 2015 11:53AM Osteoarthritis, Left Hip Feb 25 2015 11:53AM Leg pain Mar 10 2015 4:19PM Moderate Chronic Left hip pain Mar 10 2015 4:19PM Severe Chronic Osteoarthritis, Left Hip Mar 10 2015 4:19PM Leg pain, anterior, left Mar 11 2015 2:54PM Varicose veins of both lower extremities Apr 01 2015 10:30AM Hypersomnia Apr 01 2015 10:30AM Left Anterior Hip pain, chronic Apr 09 2015 11:42AM Severe Chronic Osteoarthritis, Left Hip Apr 09 2015 11:42AM Diabetes Mellitus, Type II Apr 18 2015 11:27AM Routine gynecological examination Apr 28 2015 8:05AM Screening Examination for Breast Cancer Apr 28 2015 8:05AM Chronic pain syndrome May 08 2015 11:40AM Diabetes Mellitus, Type II May 15 2015 3:05PM Foot callus May 15 2015 3:05PM Hammer toe May 15 2015 3:05PM Diabetes Mellitus, Type II May 23 2015 12:06PM Hyperlipidemia, Mixed May 23 2015 12:06PM Hypertension May 23 2015 12:06PM Anemia, Iron Deficiency, unspecified May 23 2015 12:06PM Fibromyalgia May 23 2015 12:06PM Shortness of breath May 23 2015 12:06PM Left Anterior Hip pain, chronic Jun 04 2015 11:36AM Severe Chronic Osteoarthritis, Left Hip Jun 04 2015 11:36AM Lumbago Jun 04 2015 11:36AM Left Anterior Hip pain, chronic Jul 02 2015 4:09PM Lumbago Jul 02 2015 4:09PM Severe Chronic Osteoarthritis, Left Hip Jul 02 2015 4:09PM Left Anterior Hip pain, chronic Aug 01 2015 11:36AM Lumbago Aug 01 2015 11:36AM Severe Chronic Osteoarthritis, Left Hip Aug 01 2015 11:36AM Left Anterior Hip pain, chronic Aug 20 2015 1:11PM Lumbago Aug 20 2015 1:11PM Severe Chronic Osteoarthritis, Left Hip, secondary hip dysplasia Aug 20 2015 1:11PM Ganglion cyst Aug 29 2015 9:25AM Ganglion cyst Sep 03 2015 3:00PM Chronic pain syndrome Sep 18 2015 4:30PM Type 2 diabetes mellitus without complication Oct 13 2015 3:55PM Hyperlipidemia, mixed Oct 13 2015 3:55PM Hypertension Oct 13 2015 3:55PM Diabetes Mellitus, Type II Nov 10 2015 4:35PM Diabetes Mellitus, Type II Feb 05 2016 11:14AM Hyperlipidemia, Mixed Feb 05 2016 11:14AM Depressive Disorder Feb 05 2016 11:14AM Fibromyalgia Feb 05 2016 11:14AM Left hip pain Feb 05 2016 11:14AM Overactive bladder Feb 05 2016 11:14AM Hypertension Feb 05 2016 11:14AM Routine gynecological examination May 05 2016 8:51AM Diabetes Mellitus, Type II May 05 2016 8:51AM Hyperlipidemia, mixed May 05 2016 8:51AM Hypertension May 05 2016 8:51AM Visit for screening mammogram May 05 2016 8:51AM Exposure to dust May 05 2016 8:51AM Diabetes Mellitus, Type II May 18 2016 3:57PM Hyperlipidemia, Mixed May 18 2016 3:57PM Depression May 18 2016 3:57PM Fibromyalgia May 18 2016 3:57PM Lumbago May 18 2016 3:57PM Overactive bladder May 18 2016 3:57PM Depressive Disorder May 18 2016 3:57PM Fibromyalgia Sep 09 2016 3:23PM Depressive Disorder Sep 09 2016 3:23PM Diabetes Mellitus, Type II Sep 09 2016 3:23PM Hyperlipidemia, mixed Sep 09 2016 3:23PM Hypertension Sep 09 2016 3:23PM Vulvovaginal candidiasis Sep 09 2016 3:23PM Callus of foot Sep 09 2016 3:23PM Maxillary Sinusitis, Acute Nov 02 2016 5:15PM Acute Pharyngitis Nov 02 2016 5:15PM Left hand pain Nov 19 2016 5:44PM Joint pain in fingers of left hand Nov 25 2016 3:28PM Left hand pain Nov 25 2016 3:28PM Ganglion cyst Nov 25 2016 3:28PM Ganglion cyst Dec 14 2016 2:58PM Diabetes Mellitus, Type II Dec 24 2016 9:36AM Hyperlipidemia, Mixed Dec 24 2016 9:36AM Depressive Disorder Dec 24 2016 9:36AM Hypertension Dec 24 2016 9:36AM Lower abdominal pain Jan 19 2017 9:40AM Uncontrolled type 2 diabetes mellitus without complication, without long-term current use of insulin Jan 19 2017 9:40AM Hyperlipidemia, Mixed Jan 19 2017 9:40AM Nausea Jan 19 2017 9:40AM Essential hypertension Jan 19 2017 9:40AM Other constipation Jan 19 2017 9:40AM Essential hypertension Jan 25 2017 3:25PM Depressive Disorder Jan 25 2017 3:25PM Diabetes Mellitus, Type II Jan 25 2017 3:25PM Hyperlipidemia, mixed Jan 25 2017 3:25PM Hyperlipidemia Mar 08 2017 3:59PM Depressive Disorder Mar 08 2017 3:59PM Essential hypertension Mar 08 2017 3:59PM Fibromyalgia Mar 08 2017 3:59PM Uncontrolled type 2 diabetes mellitus without complication, without long-term current use of insulin Mar 08 2017 3:59PM Routine gynecological examination May 09 2017 8:26AM Diabetes Mellitus, Type II May 09 2017 8:26AM Hyperlipidemia, mixed May 09 2017 8:26AM Hypertension May 09 2017 8:26AM Visit for screening mammogram May 09 2017 8:26AM Other hammer toe(s) (acquired), right foot May 09 2017 8:26AM Other hammer toe(s) (acquired), left foot May 09 2017 8:26AM Callus of foot May 09 2017 8:26AM Scabies Jun 18 2017 8:43AM Scabies Jun 29 2017 7:37PM Pain in right knee Sep 01 2017 1:27PM Pain in left knee Sep 01 2017 1:27PM Acute upper respiratory infection Oct 05 2017 8:32AM Acute pain of left knee Oct 25 2017 1:20PM Bronchopneumonia Oct 28 2017 6:26PM Cough Oct 28 2017 6:26PM Wheezing Oct 28 2017 6:26PM Fever Oct 28 2017 6:26PM Radiculopathy of leg Nov 09 2017 5:12PM Right hip pain Nov 09 2017 5:12PM Radiculopathy of leg Nov 11 2017 9:30AM Right hip pain Nov 11 2017 9:30AM Acute pain of right knee Dec 02 2017 8:57AM Essential hypertension Jan 03 2018 4:20PM Diabetes Mellitus, Type II Jan 03 2018 4:20PM Hyperlipidemia, Mixed Jan 03 2018 4:20PM Low Back Pain Mar 28 2018 9:35AM Anxiety Disorder Mar 28 2018 9:35AM Urinary Incontinence Mar 28 2018 9:35AM Uncontrolled type 2 diabetes mellitus without complication, without long-term current use of insulin Mar 28 2018 9:35AM Hypertension Mar 28 2018 9:35AM Pain in right knee Mar 28 2018 9:35AM Pain in left knee Mar 28 2018 9:35AM Encounter for screening mammogram for breast cancer May 09 2018 12:07PM Diabetes Mellitus, Type II May 11 2018 2:04PM Hyperlipidemia, mixed May 11 2018 2:04PM Hypertension May 11 2018 2:04PM Visit for screening mammogram May 11 2018 2:04PM Screening mammogram, encounter for May 11 2018 2:04PM Varicose veins of right lower extremity with pain May 11 2018 2:04PM Dust exposure May 11 2018 2:04PM Varicose Veins of Lower Extremities with Pain May 24 2018 4:03PM Fibromyalgia Jun 24 2018 8:41AM Right shoulder injury, initial encounter Jun 24 2018 8:41AM Right shoulder pain Jun 27 2018 4:18PM Diabetes Mellitus, Type II Aug 17 2018 8:22AM Other hammer toe(s) (acquired), right foot Aug 17 2018 8:22AM Other hammer toe(s) (acquired), left foot Aug 17 2018 8:22AM Essential hypertension Sep 28 2018 8:01AM Fibromyalgia Sep 28 2018 8:01AM Diabetes Mellitus, Type II Sep 28 2018 8:01AM Hyperlipidemia, Mixed Sep 28 2018 8:01AM Fatigue Sep 28 2018 8:01AM Knee pain, left Sep 28 2018 8:01AM Payers Insurance Name Company Name Plan Name Plan Number Policy Number Policy Group Number Start Date [facility] Gpa [id number] Saturday, 2015 [employer] [facility] [id number] Saturday, 2009 [employer] [facility] [id number] Wednesday, 2009 History of Encounters Visit Date Visit Type Provider 09/28/2018 Office visit Brannon Jackson DO 08/17/2018 Office visit Brannon Jackson DO 06/27/2018 Office visit Brannon Jackson DO 06/24/2018 Office visit Lakia Reina APRN 05/24/2018 Office visit Ty Infante MD 05/11/2018 Office visit Brannon Jackson DO 03/28/2018 Office visit Brannon Jackson DO 12/02/2017 Office visit Brannon Jackson DO 11/11/2017 Office visit Brannon Jackson DO 11/09/2017 Office visit Harjinder Paiz PA-C 10/28/2017 Office visit Lakia Reina SUPERVISOR TRUST ACCOUNTS 10/25/2017 Office visit Regina Mcnally SUPERVISOR TRUST ACCOUNTS 10/05/2017 Office visit Regina Mcnally SUPERVISOR TRUST ACCOUNTS 09/01/2017 Office visit Brannon Manuel DO 06/29/2017 Office visit Karyna Gilbert SUPERVISOR TRUST ACCOUNTS 06/18/2017 Office visit Karyna Gilbert SUPERVISOR TRUST ACCOUNTS 05/09/2017 Office visit Brannon Manuel DO 03/08/2017 Office visit Brannonpatrica Simpsonte DO 01/25/2017 Office visit Brannon Manuel DO 01/19/2017 Office visit Regina Uli SUPERVISOR TRUST ACCOUNTS 01/04/2017 Procedures Reagan Lehman DO 12/24/2016 Office visit Brannon Manuel DO 12/23/2016 Surgery Reagan Bouman DO 12/14/2016 Office visit Reaganmichael Lehman DO 11/25/2016 Office visit Brannon Manuel DO 11/19/2016 Office visit Sandra Milton SUPERVISOR TRUST ACCOUNTS 11/02/2016 Office visit Lakia Reina SUPERVISOR TRUST ACCOUNTS 09/09/2016 Office visit Brannon Manuel DO 05/18/2016 Office visit Brannon Manuel DO 05/05/2016 Office visit 05/05/2016 Office visit Brannon Manuel DO 02/05/2016 Office visit Brannon Manuel DO 12/09/2015 Voided Cass BRAY 10/13/2015 Office visit Brannon Jackson DO 09/18/2015 Nurse visit Cass BRAY 09/03/2015 Procedures Reagan Lehman DO 08/29/2015 Office visit Brannon Jackson DO 08/20/2015 Office visit Cass BRAY 08/01/2015 Office visit Cass BRAY 07/02/2015 Office visit Cass BRAY 06/04/2015 Office visit Cass BRAY 05/15/2015 Office visit Brannon Jackson DO 05/08/2015 Nurse visit Cass BRAY 04/28/2015 Office visit 04/28/2015 Office visit Brannon Jackson DO 04/09/2015 Office visit Cass BRAY 04/01/2015 Procedures Dinesh Zhu MD 04/01/2015 Office visit Brannon Jackson DO 03/10/2015 Office visit Cass BRAY 02/25/2015 Office visit Cass BRAY 02/05/2015 Nurse visit Cass BRAY 12/17/2014 Hospital Dinesh Zhu MD 12/17/2014 Office visit Brannon Manuel DO 12/12/2014 Office visit Cass ARCINIEGAP 10/29/2014 Office visit Cass BRAY 10/02/2014 Office visit Cass ARCINIEGAP 09/20/2014 Office visit Brannon Jackson DO 09/05/2014 Office visit Cass ARCINIEGAP 07/29/2014 Office visit Cass ARCINIEGAP 07/18/2014 Office visit Brannon Jackson DO 07/03/2014 Office visit Rob Ruiz SUPERVISOR TRUST ACCOUNTS 06/11/2014 Office visit Cass ARCINIEGAP 04/29/2014 Office visit Cass ARCINIEGAP 04/29/2014 Office visit Brannon Jackson DO 04/05/2014 Office visit Harjinder Paiz PA-C 02/25/2014 Office visit Cass BRAY 01/02/2014 Office visit Cass ARCINIEGAP 12/18/2013 Office visit Cass BRAY 09/13/2013 Office visit Brannon Jackson DO 08/27/2013 Office visit Regina Mcnally SUPERVISOR TRUST ACCOUNTS 08/17/2013 Office visit Ray Tripathi SUPERVISOR TRUST ACCOUNTS 05/21/2013 Office visit Brannon Jackson DO 05/10/2013 Office visit Anirudh Conway MD 04/26/2013 Office visit Anirudh Conway MD 12/22/2012 Office visit Brannon Jackson DO 12/14/2012 [facility] Sandra Ca MD 12/12/2012 Office visit Brannon Jackson DO 12/12/2012 [facility] Sandra Ca MD 12/06/2012 Office visit Anirudh Conway MD 11/24/2012 Office visit Regina Mcnally APRN 10/12/2012 [facility] Anirudh Conway MD 10/10/2012 Office visit Brannon Jackson DO 09/18/2012 Office visit Anirudh Conway MD 09/01/2012 Office visit Brannon Jackson DO 08/21/2012 Office visit Brannon Jackson DO 08/01/2012 Office visit Brannon Jackson DO 07/11/2012 Office visit Regina Mcnally SUPERVISOR TRUST ACCOUNTS 06/14/2012 Office visit Anirudh Conway MD 05/25/2012 Office visit Anirudh Conway MD 05/04/2012 Office visit Brannon Jackson DO 12/23/2011 Office visit Anirudh Conway MD 12/16/2011 Office visit Brannon Jackson DO 12/06/2011 Office visit Anirudh Conway MD 11/11/2011 Office visit Brannon Jackson DO 10/28/2011 Office visit Brannon Jackson DO 10/22/2011 [facility] Valery Cerna MD 10/21/2011 [facility] Valery Cerna MD 10/19/2011 Office visit Brannon Jackson DO 10/19/2011 [facility] Anderson Dawkins MD 10/07/2011 Office visit Brannon Jackson DO 04/27/2011 Office visit Brannon Jackson DO 04/16/2011 Office visit Brannon Jackson DO 12/18/2010 Office visit Brannon Jackson DO 11/17/2010 Office visit Brannon Jackson DO 10/08/2010 Office visit Brannon Jackson DO 08/18/2010 Office visit Regina Mcnally SUPERVISOR TRUST ACCOUNTS 02/03/2010 Office visit Brannon Jackson DO 12/02/2009 Office visit Brannon Jackson DO 06/27/2009 Office visit Brannon Jackson DO
[2018-10-25 07:20] VITALS: BP 145/95
--- OUTSIDE RECORDS SUMMARY | 2018-10-25 07:20 | XMS REPORT ---
Author Author Brannon Jackson [facility] Address [address] [place], [place] [id number] Care Team Providers Care Medical Director Of Hospice Name Role Phone Brannon Jackson PCP Brannon [...] by oral route daily for 90 days indomethacin 50 mg oral capsule 05/11/2018 05/06/2019 take 1 capsule (50 mg) by oral route 3 times per day with food for 90 days losartan-hydrochlorothiazide 100-25 mg oral [...] capsule 09/20/2018 TAKE 1 CAPSULE TWICE DAILY Name Start Date Expiration Date SIG Comments [...] 2 times per day for 7 days [place] Thyroid 120 mg oral tablet 12/14/2012 12/09/2013 [...] Active 06/04/2015 Ganglion cyst Active 12/14/2016 Essential hypertension Active 01/20/2017 Uncontrolled type 2 diabetes mellitus [...] Reviewed 12/13/2011 12:00 AM Kenalog per 10Mg [facility]#[address]-99(Man) Reviewed 12/23/2011 12:00 AM DRAIN/INJ JOINT/BURSA W/O US Reviewed 12/23/2011 12:00 AM Kenalog 40 Mg [facility]#5325-8251-24 Reviewed 11/19/2016 12:00 AM X-RAY EXAM OF HAND Reviewed 01/19/2017 12:00 AM COMPLETE CBC W/AUTO DIFF WBC Reviewed 01/19/2017 12:00 AM COMPREHEN METABOLIC PANEL Reviewed 01/19/2017 12:00 AM GLYCOSYLATED HEMOGLOBIN TEST Reviewed 05/25/2012 12:00 AM INJ TRIGGER POINT 1/2 MUSCL Reviewed 05/25/2012 12:00 AM Kenalog, Per 10 Mg [facility]#1600-6136-16 Reviewed 06/14/2012 12:00 AM DRAIN/INJ JOINT/BURSA W/O US Reviewed 06/14/2012 12:00 AM Kenalog, Per 10 Mg [facility]#2153-0477-29 Reviewed 05/09/2017 12:00 AM MAMMOGRAPHY SCREENING, DIGITAL Reviewed 07/11/2012 12:00 AM THER/PROPH/DIAG INJ SC/IM Reviewed 07/11/2012 12:00 AM Decadron 1 mg [facility]#13133398764 (Manuel) Reviewed 07/11/2012 12:00 AM Depo-Medrol 80 mg [facility]#[id number]-Spvsmcfu Reviewed 08/21/2012 12:00 AM ASSAY CARBOXYHB QUANT Reviewed 09/01/2017 12:00 AM RADIOLOGIC EXAMINATION KNEE 1/2 VIEWS Reviewed 09/18/2012 12:00 AM DRAIN/INJ JOINT/BURSA W/O US Reviewed 09/18/2012 12:00 AM Kenalog, Per 10 Mg [facility]#3675-6706-26 Reviewed 10/25/2017 12:00 AM RADIOLOGIC EXAMINATION KNEE [...] 12/06/2012 12:00 AM Kenalog, Per 10 Mg [facility]#7937-1995-79 Reviewed 12/22/2012 12:00 AM TOTAL CORTISOL Reviewed 05/09/2018 12:00 AM MAMMOGRAPHY SCREENING, DIGITAL Reviewed 05/11/2018 12:00 AM CHEST X-RAY 2VW FRONTAL&LATL Reviewed 05/11/2018 12:00 AM Mammogram, screening, bilateral Reviewed 06/27/2018 12:00 AM MRI JOINT UPR EXTR W/O&W/DYE Reviewed 04/26/2013 12:00 AM DRAIN/INJ JOINT/BURSA W/O US Reviewed 04/26/2013 12:00 AM Kenalog, Per 10 Mg [facility]#1533-7175-13 Reviewed 05/10/2013 12:00 AM DRAIN/INJ JOINT/BURSA W/O US Reviewed 05/10/2013 12:00 AM Kenalog, Per 10 Mg [facility]#5612-5811-80 Reviewed 05/10/2013 12:00 AM DRAIN/INJ JOINT/BURSA W/O US Reviewed 05/10/2013 12:00 AM Kenalog, Per 10 Mg [facility]#2865-6395-02 Reviewed 05/28/2013 12:00 AM MAMMOGRAM SCREENING Reviewed [...] 03/05/2014 12:00 AM Kenalog, Per 10 Mg [facility]#5990-3327-81 Reviewed 04/05/2014 12:00 AM COMPLETE CBC W/AUTO [...] 18 2010 9:00AM Ganglion cyst 12/14/2016 Essential hypertension 01/20/2017 Uncontrolled type 2 diabetes mellitus without [...] Policy Number Policy Group Number Start Date [facility] Gpa [id number] Saturday, 2015 [employer] [facility] [id number] Saturday, 2009 [employer] [facility] [id number] Wednesday, 2009 History of Encounters Visit Date [...] Paiz PA-C 10/28/2017 Office visit Lakia Reina IT SOLUTIONS ARCHITECT 10/25/2017 Office visit Regina Mcnally IT SOLUTIONS ARCHITECT 10/05/2017 Office visit Regina Mcnally IT SOLUTIONS ARCHITECT 09/01/2017 Office visit Brannon Manuel DO 06/29/2017 Office visit Karyna Gilbert IT SOLUTIONS ARCHITECT 06/18/2017 Office visit Karyna Gilbert IT SOLUTIONS ARCHITECT 05/09/2017 Office visit Brannon Manuel DO 03/08/2017 Office visit Brannonpatrica Simpsonte DO 01/25/2017 Office visit Brannon Manuel DO 01/19/2017 Office visit Regina Uli IT SOLUTIONS ARCHITECT 01/04/2017 Procedures Reagan Lehman DO 12/24/2016 Office visit Brannon Manuel DO 12/23/2016 Surgery Reagan Bouman DO 12/14/2016 Office visit Reaganmichael Lehman DO 11/25/2016 Office visit Brannon Manuel DO 11/19/2016 Office visit Sandra Milton IT SOLUTIONS ARCHITECT 11/02/2016 Office visit Lakia Reina IT SOLUTIONS ARCHITECT 09/09/2016 Office visit Brannon Manuel DO 05/18/2016 [...] Jackson DO 07/03/2014 Office visit Rob Ruiz IT SOLUTIONS ARCHITECT 06/11/2014 Office visit Cass ARCINIEGAP 04/29/2014 Office visit Cass ARCINIEGAP 04/29/2014 Office visit Brannon Jackson DO 04/05/2014 Office visit Harjinder Paiz PA-C 02/25/2014 Office visit Cass BRAY 01/02/2014 Office visit Cass ARCINIEGAP 12/18/2013 Office visit Cass BRAY 09/13/2013 Office visit Brannon Jackson DO 08/27/2013 Office visit Regina Mcnally IT SOLUTIONS ARCHITECT 08/17/2013 Office visit Ray Tripathi IT SOLUTIONS ARCHITECT 05/21/2013 Office visit Brannon Jackson DO 05/10/2013 Office visit Anirudh Conway MD 04/26/2013 Office visit Anirudh Conway MD 12/22/2012 Office visit Brannon Jackson DO 12/14/2012 [facility] Sandra Ca MD 12/12/2012 Office visit Brannon Jackson DO 12/12/2012 [facility] Sandra aC MD 12/06/2012 Office visit Anirudh Conway MD 11/24/2012 Office visit Regina Mcnally APRN 10/12/2012 [facility] Anirudh Conway MD 10/10/2012 Office visit Brannon Jackson DO 09/18/2012 Office visit Anirudh Conway MD 09/01/2012 Office visit Brannon Jackson DO 08/21/2012 Office visit Brannon Jackson DO 08/01/2012 Office visit Brannon Jackson DO 07/11/2012 Office visit Regina Mcnally IT SOLUTIONS ARCHITECT 06/14/2012 Office visit Anirudh Conway MD 05/25/2012 Office visit Anirudh Conway MD 05/04/2012 Office visit Brannon Jackson DO 12/23/2011 Office visit Anirudh Conway MD 12/16/2011 Office visit Brannon Jackson DO 12/06/2011 Office visit Anirudh Conway MD 11/11/2011 Office visit Brannon Jackson DO 10/28/2011 Office visit Brannon Jackson DO 10/22/2011 [facility] Valery Cerna MD 10/21/2011 [facility] Valery Cerna MD 10/19/2011 Office visit Brannon Jackson DO 10/19/2011 [facility] Anderson Dawkins MD 10/07/2011 Office visit Brannon Jackson DO 04/27/2011 Office visit Brannon Jackson DO 04/16/2011 Office visit Brannon Jackson DO 12/18/2010 Office visit Brannon Jackson DO 11/17/2010 Office visit Brannon Jackson DO 10/08/2010 Office visit Brannon Jackson DO 08/18/2010 Office visit Regina Mcnally IT SOLUTIONS ARCHITECT 02/03/2010 Office visit Brannon Jackson DO 12/02/2009 Office visit Brannon Jackson DO 06/27/2009 Office visit Brannon Jackson DO
--- OUTSIDE RECORDS SUMMARY | 2018-10-25 07:22 | XMS REPORT ---
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#[address]-36(Man) Reviewed 12/23/2011 12:00 AM DRAIN/INJ JOINT/BURSA W/O US Reviewed 12/23/2011 12:00 AM Kenalog 40 Mg Im-[facility]#8027-2063-56 Reviewed 11/19/2016 12:00 AM X-RAY EXAM OF HAND Reviewed 01/19/2017 12:00 AM COMPLETE CBC W/AUTO DIFF WBC Reviewed 01/19/2017 12:00 AM COMPREHEN METABOLIC PANEL Reviewed 01/19/2017 12:00 AM GLYCOSYLATED HEMOGLOBIN TEST Reviewed 05/25/2012 12:00 AM INJ TRIGGER POINT 1/2 MUSCL Reviewed 05/25/2012 12:00 AM Kenalog, Per 10 Mg [facility]#6557-4621-55 Reviewed 06/14/2012 12:00 AM DRAIN/INJ JOINT/BURSA W/O US Reviewed 06/14/2012 12:00 AM Kenalog, Per 10 Mg [facility]#2964-1205-50 Reviewed 05/09/2017 12:00 AM MAMMOGRAPHY SCREENING, DIGITAL Reviewed 07/11/2012 12:00 AM THER/PROPH/DIAG INJ SC/IM Reviewed 07/11/2012 12:00 AM Decadron 1 mg [facility]#[id number] (Manuel) Reviewed 07/11/2012 12:00 AM Depo-Medrol 80 mg [facility]#95692636446-Iweghqoy Reviewed 08/21/2012 12:00 AM ASSAY CARBOXYHB QUANT Reviewed 09/01/2017 12:00 AM RADIOLOGIC EXAMINATION KNEE 1/2 VIEWS Reviewed 09/18/2012 12:00 AM DRAIN/INJ JOINT/BURSA W/O US Reviewed 09/18/2012 12:00 AM Kenalog, Per 10 Mg [facility]#8165-3051-63 Reviewed 10/25/2017 12:00 AM RADIOLOGIC EXAMINATION KNEE [...] Per 10 Mg [facility]#2575-6115-77 Reviewed 12/22/2012 12:00 AM TOTAL CORTISOL Reviewed 05/09/2018 12:00 AM MAMMOGRAPHY SCREENING, DIGITAL Reviewed 05/11/2018 12:00 AM CHEST X-RAY 2VW FRONTAL&LATL Reviewed 05/11/2018 12:00 AM Mammogram, screening, bilateral Reviewed 06/27/2018 12:00 AM MRI JOINT UPR EXTR W/O&W/DYE Reviewed 04/26/2013 12:00 AM DRAIN/INJ JOINT/BURSA W/O US Reviewed 04/26/2013 12:00 AM Kenalog, Per 10 Mg [facility]#3270-4895-98 Reviewed 05/10/2013 12:00 AM DRAIN/INJ JOINT/BURSA W/O US Reviewed 05/10/2013 12:00 AM Kenalog, Per 10 Mg [facility]#8947-2797-88 Reviewed 05/10/2013 12:00 AM DRAIN/INJ JOINT/BURSA W/O US Reviewed 05/10/2013 12:00 AM Kenalog, Per 10 Mg [facility]#1537-0028-21 Reviewed 05/28/2013 12:00 AM MAMMOGRAM SCREENING Reviewed [...] Reviewed 09/28/2018 12:00 AM COMPREHEN METABOLIC PANEL Returned 09/28/2018 12:00 AM ASSAY THYROID STIM HORMONE Reviewed 09/28/2018 12:00 AM ASSAY OF TOTAL THYROXINE Reviewed 09/28/2018 12:00 AM GLYCOSYLATED HEMOGLOBIN TEST Returned 08/27/2013 12:00 AM COMPLETE CBC W/AUTO DIFF [...] Per 10 Mg [facility]#9048-7862-45 Reviewed 04/05/2014 12:00 AM COMPLETE CBC W/AUTO [...] mg/dLVITAMIN B12 493.0 pg/mL 09/28/2018 9:00 AM WBC 8.7 RBC 4.44 HGB 12.6 HCT 37.0 MCV 83 MCH 28.4 MCHC 34.1 RDW SD 38 RDW CV 12.5 MPV 9.8 PLT 370 NRBC# 0.00 NRBC% 0.0 %NEUT 64.6 % LYMP 28.1 %MONO 6.5 %EOS 0.1 %BASO 0.5 #NEUT 5.64 #LYMP 2.45 #MONO 0.57 #EOS 0.01 #BASO 0.04 MANUAL DIFF [...] Feb 2011 4:20PM Pain in joint; Knee Feb 2011 4:20PM Fibromyalgia Feb 2011 4:20PM Lumbago Dec 06 2011 4:20PM Cervicalgia Dec 06 2011 4:20PM Trochanteric Bursitis b 2011 9:26AM Insomnia Dec 16 2011 3:26PM Dermatitis Dec 16 2011 3:26PM Otitis Externa, Acute - Right [...] joint; Knee Dec 12 2014 3:20PM Lumbago Dec 12 2014 3:20PM Pain in joint; shoulder region, Right Dec 12 2014 3:20PM Osteoarthritis, Left Hip Dec 12 2014 3:20PM Fatigue Dec 12 2014 3:20PM Diabetes Mellitus, Type II Dec 13 2014 12:09PM Dysuria Dec 13 2014 12:09PM Gastroesophageal Reflux Dec 17 2014 8:20AM Diabetes Mellitus, Type II Dec 17 2014 8:20AM Hyperlipidemia, mixed Dec 17 2014 8:20AM Hypertension Dec 17 2014 8:20AM Overactive bladder Dec 17 2014 8:20AM Chronic pain syndrome Feb 05 [...] 2018 8:01AM Fatigue Sep 28 2018 8:01AM Payers Insurance Name Company Name Plan Name Plan Number Policy Number Policy Group Number Start Date Gpa Gpa [id number] Saturday, 2015 BCBS [employer]cbs [facility] [id number] Saturday, 2009 [employer]BS [employer] [place] [id number] Wednesday, 2009 History of Encounters Visit Date [...] Paiz PA-C 10/28/2017 Office visit Lakia Reina APRN 10/25/2017 Office visit Regina Mcnally APRN 10/05/2017 Office visit Regina Mcnally APRN 09/01/2017 Office visit Brannon Jackson DO 06/29/2017 Office visit Karyna Gilbert MANAGER SECURITY AND SAFETY 06/18/2017 Office visit Karyna Gilbert MANAGER SECURITY AND SAFETY 05/09/2017 Office visit Brannon Simpsonte DO 03/08/2017 Office visit Brannon Simpsonte DO 01/25/2017 Office visit Brannon Manuel DO 01/19/2017 Office visit Regina Mcnally MANAGER SECURITY AND SAFETY 01/04/2017 Procedures Reagan Bolois DO 12/24/2016 Office visit Brannon Manuel DO 12/23/2016 Surgery Reagan Bouman DO 12/14/2016 Office visit Reagan Bouman DO 11/25/2016 Office visit Brannon Manuel DO 11/19/2016 Office visit Sandra Milton MANAGER SECURITY AND SAFETY 11/02/2016 Office visit Lakia Reina MANAGER SECURITY AND SAFETY 09/09/2016 Office visit Brannon Manuel DO 05/18/2016 Office visit Brannon Manuel DO 05/05/2016 Office visit 05/05/2016 Office visit Brannon Manuel DO 02/05/2016 Office visit Brannon Tidwellhite DO 12/09/2015 Voided Cass BRAY 10/13/2015 Office visit Brannon Jackson DO 09/18/2015 Nurse visit Cass BRAY 09/03/2015 Procedures Reagan Lehman DO 08/29/2015 Office visit Brannon Manuel DO 08/20/2015 Office visit Cass BRAY 08/01/2015 Office visit Cass BRAY 07/02/2015 Office visit Cass BRAY 06/04/2015 Office visit Cass BRAY 05/15/2015 Office visit Brannon Manuel DO 05/08/2015 Nurse visit Cass BRAY 04/28/2015 Office visit 04/28/2015 Office visit Brannon Manuel DO 04/09/2015 Office visit Cass BRAY 04/01/2015 Procedures Dinesh Zhu MD 04/01/2015 Office visit Brannon Manuel DO 03/10/2015 Office visit Cass BRAY 02/25/2015 Office visit Cass BRAY 02/05/2015 Nurse visit Cass BRAY 12/17/2014 Hospital Dinesh John Zuh MD 12/17/2014 Office visit Brannon Jackson DO 12/12/2014 Office visit Cass BRAY 10/29/2014 Office visit Cass Arellano INFORMATICS SCIENTIST 10/02/2014 Office visit Cass Arellano INFORMATICS SCIENTIST 09/20/2014 Office visit Brannon Manuel DO 09/05/2014 Office visit Cass Arellano INFORMATICS SCIENTIST 07/29/2014 Office visit Cass Arellano INFORMATICS SCIENTIST 07/18/2014 Office visit Brannon Manuel DO 07/03/2014 Office visit Rob Joseph MANAGER SECURITY AND SAFETY 06/11/2014 Office visit Cass Arellano INFORMATICS SCIENTIST 04/29/2014 Office visit Cass Arellano INFORMATICS SCIENTIST 04/29/2014 Office visit Brannon Manuel DO 04/05/2014 Office visit Harjinder Paiz PA-C 02/25/2014 Office visit Cass Arellano INFORMATICS SCIENTIST 01/02/2014 Office visit Cass Arellano INFORMATICS SCIENTIST 12/18/2013 Office visit Cass Arellano INFORMATICS SCIENTIST 09/13/2013 Office visit Brannon Jackson DO 08/27/2013 Office visit Regina Mcnally MANAGER SECURITY AND SAFETY 08/17/2013 Office visit Ray Tripathi MANAGER SECURITY AND SAFETY 05/21/2013 Office visit Brannon Jackson DO 05/10/2013 Office visit Anirudh Conway MD 04/26/2013 Office visit Anirudh Conway MD 12/22/2012 Office visit Brannon Jackson DO 12/14/2012 [facility] Sandra Ca MD 12/12/2012 Office visit Brannon Jackson DO 12/12/2012 [facility] Sandra Ca MD 12/06/2012 Office visit Anirudh Conway MD 11/24/2012 Office visit Regina Mcnally MANAGER SECURITY AND SAFETY 10/12/2012 [facility] Anirudh Conway MD 10/10/2012 Office visit Brannon Jackson DO 09/18/2012 Office visit Anirudh Conway MD 09/01/2012 Office visit Brannon Jackson DO 08/21/2012 Office visit Brannon Jackson DO 08/01/2012 Office visit Brannon Jackson DO 07/11/2012 Office visit Regina Mcnally MANAGER SECURITY AND SAFETY 06/14/2012 Office visit Anirudh Conway MD 05/25/2012 Office visit Anirudh Conway MD 05/04/2012 Office visit Brannon Jackson DO 12/23/2011 Office visit Anirudh Conway MD 12/16/2011 Office visit Brannon Jackson DO 12/06/2011 Office visit Anirudh Conway MD 11/11/2011 Office visit Brannon Jackson DO 10/28/2011 Office visit Brannon Jackson DO 10/22/2011 [facility] Valery Cerna MD 10/21/2011 [facility] Valery Cerna MD 10/19/2011 Office visit Brannon Jackson DO 10/19/2011 [facility] Anderson Dawkins MD 10/07/2011 Office visit Brannon Jackson DO 04/27/2011 Office visit Brannon Jackson DO 04/16/2011 Office visit Brannon Jackson DO 12/18/2010 Office visit Brannon Jackson DO 11/17/2010 Office visit Brannon Jackson DO 10/08/2010 Office visit Brannon Jackson DO 08/18/2010 Office visit Regina Mcnally APRN 02/03/2010 Office visit Brannon Jackson DO 12/02/2009 Office visit Brannon Jackosn DO 06/27/2009 Office visit Brannon Jackson DO
--- OUTSIDE RECORDS SUMMARY | 2018-10-25 07:25 | XMS REPORT ---
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 Name Role Phone Brannon Jackson PCP Brannon [...] Multivitamin, Hair, Skin,and Nails one tablet daily cane miscellaneous device 09/01/2015 use as directed single point mckeon estradiol 0.5 mg oral tablet 05/09/2017 take 1 tablet (0.5 mg) by oral route once daily amlodipine 5 mg oral tablet 09/26/2017 09/21/2018 TAKE 1 TABLET DAILY simvastatin 20 mg oral tablet 09/26/2017 09/21/2018 TAKE 1 TABLET ONCE DAILY INTHE EVENING cyclobenzaprine 10 mg oral tablet 09/26/2017 09/21/2018 TAKE 1 TABLET EVERY 8 HOURSAS NEEDED FOR MUSCLE SPASM amitriptyline 10 mg oral tablet 09/26/2017 09/21/2018 TAKE 1 TABLET ONCE A DAY ATBEDTIME Voltaren 1 % topical gel 10/25/2017 apply 2 gram to the affected area(s) by topical route 4 times per day OneTouch Verio miscellaneous strip 11/11/2017 Test glucose 4 times a day Dx :e11.65 gabapentin 300 mg oral capsule 11/11/2017 Take [...] oral tablet 06/29/2018 TAKE 1 TABLET DAILY tolterodine 4 mg oral capsule,extended release 24hr 08/21/2018 08/16/2019 take 1 capsule (4 mg) by oral route once daily for 90 days hydrocodone-acetaminophen 10-325 mg oral tablet 09/11/2018 10/11/2018 take 1 tablet by oral route every 6 hours as needed for pain for 30 days May fill 07/06 Name Start Date Expiration Date SIG Comments [...] 2 times per day for 7 days [place] Thyroid 120 mg oral tablet 12/14/2012 12/09/2013 [...] mg) po at HS x 7 days metformin 1,000 mg oral tablet 09/26/2017 09/21/2018 TAKE 1 TABLET TWICE A DAY Taking Janumet Zithromax 250 mg oral tablet 10/28/2017 11/02/2017 [...] tablet by oral route every other day Accu-Chek Ana Cristina Plus test strp miscellaneous strip 12/30/2016 12/30/2016 Test glucose twice a day. Dx e11.9 Miralax 17 gram/dose oral powder 01/19/2017 06/18/2017 [...] oral route once daily for 7 days Problem List Description Status Onset Depressive [...] HC BMI BSA BMI Percentile O2 Sat(%) 08/17/2018 8:20:00 AM 152 mmHg 88 mmHg 92 bpm 20 rpm 98.6 F 235 lbs 68 in 35.7313 kg/m 2.2615 m 98 % 06/27/2018 4:16:00 PM 130 mmHg 70 mmHg 96 bpm 20 rpm 97.9 F 234 lbs 68 in 35.58 kg/m2 2.26 m2 97 % 06/24/2018 8:31:00 AM 176 mmHg 102 mmHg 85 bpm 18 rpm 97.7 F 228.25 lbs 68 in 34.7049 kg/m 2.2287 m 97 % 05/24/2018 4:02:00 PM 144 mmHg 80 mmHg 94 bpm 20 rpm 97.7 F 233 lbs 68 in 35.43 kg/m2 2.25 m2 98 % 05/11/2018 2:02:00 PM 130 mmHg 78 mmHg 98 bpm 20 rpm 97.9 F 231 lbs 68 in 35.1231 kg/m 2.2421 m 100 % 03/28/2018 9:32:00 AM 139 mmHg 82 mmHg 95 bpm 22 rpm 98.2 F 232 lbs 68 in 35.28 kg/m2 2.25 m2 97 % 12/02/2017 8:55:00 AM 162 mmHg 98 mmHg 66 bpm 20 rpm 98.6 F 228 lbs 68 in 34.6669 kg/m 2.2275 m 98 % 11/11/2017 9:28:00 AM 150 mmHg 88 mmHg 97 bpm 22 rpm 98.3 F 229 lbs 69 in 33.82 kg/m2 2.25 m2 97 % 11/09/2017 5:10:00 PM 146 mmHg 89 mmHg 82 bpm 19 rpm 7.6 F 233.8 lbs 68 in 35.5488 kg/m 2.2557 m 97 % 10/28/2017 6:22:00 PM 138 mmHg 88 mmHg 86 bpm 18 rpm 99 F 234 lbs 68 in 35.58 kg/m2 2.26 m2 98 % 10/25/2017 1:17:00 PM 156 mmHg 88 mmHg 102 bpm 18 rpm 97.4 F 231.5 lbs 68 in 35.1991 kg/m 2.2446 m 99 % 10/05/2017 8:30:00 AM 129 mmHg 79 mmHg 96 bpm 18 rpm 98.2 F 230 lbs 68 in 34.97 kg/m2 2.24 m2 99 % 09/01/2017 1:26:00 PM 130 mmHg 88 mmHg 99 bpm 20 rpm 97.5 F 231 lbs 68 in 35.1231 kg/m 2.2421 m 97 % 06/29/2017 7:35:00 PM 150 mmHg 90 mmHg 83 bpm 18 rpm 97 F 236 lbs 68 in 35.88 kg/m2 2.27 m2 98 % 06/18/2017 8:36:00 AM 160 mmHg 100 mmHg 84 bpm 18 rpm 98.6 F 236 lbs 68 in 35.8833 kg/m 2.2663 m 99 % 05/09/2017 8:24:00 AM 154 mmHg 88 mmHg 96 bpm 20 rpm 98.1 F 233 lbs 68 in 35.43 kg/m2 2.25 m2 97 % 03/08/2017 3:58:00 PM 138 mmHg 86 mmHg 91 bpm 16 rpm 97.3 F 230 lbs 68 in 34.971 kg/m 2.2373 m 97 % 01/25/2017 3:22:00 PM 168 mmHg 98 mmHg 97 bpm 22 rpm 97 F 222 lbs 68 in 33.75 kg/m2 2.20 m2 97 % 01/19/2017 9:38:00 AM 136 mmHg 82 mmHg 74 bpm 18 rpm 97.9 F 227 lbs 68 in 34.5149 kg/m 2.2226 m 99 % 01/04/2017 2:54:00 PM 156 mmHg 96 mmHg 86 bpm 20 rpm 97.8 F 238 lbs 68 in 36.19 kg/m2 2.28 m2 12/24/2016 10:21:00 AM 156 mmHg 96 mmHg [...] Reviewed 12/13/2011 12:00 AM Kenalog per 10Mg Im-[facility]#[address]-26(Man) Reviewed 12/23/2011 12:00 AM DRAIN/INJ JOINT/BURSA W/O US Reviewed 12/23/2011 12:00 AM Kenalog 40 Mg Im-[facility]#2933-3624-53 Reviewed 11/19/2016 12:00 AM X-RAY EXAM OF HAND Reviewed 01/19/2017 12:00 AM COMPLETE CBC W/AUTO DIFF WBC Reviewed 01/19/2017 12:00 AM COMPREHEN METABOLIC PANEL Reviewed 01/19/2017 12:00 AM GLYCOSYLATED HEMOGLOBIN TEST Reviewed 05/25/2012 12:00 AM INJ TRIGGER POINT 1/2 MUSCL Reviewed 05/25/2012 12:00 AM Kenalog, Per 10 Mg [facility]#3536-5309-85 Reviewed 06/14/2012 12:00 AM DRAIN/INJ JOINT/BURSA W/O US Reviewed 06/14/2012 12:00 AM Kenalog, Per 10 Mg [facility]#2555-1323-43 Reviewed 05/09/2017 12:00 AM MAMMOGRAPHY SCREENING, DIGITAL Reviewed 07/11/2012 12:00 AM THER/PROPH/DIAG INJ SC/IM Reviewed 07/11/2012 12:00 AM Decadron 1 mg [facility]#[id number] (Manuel) Reviewed 07/11/2012 12:00 AM Depo-Medrol 80 mg [facility]#[id number]-Rsciwvew Reviewed 08/21/2012 12:00 AM ASSAY CARBOXYHB QUANT Reviewed 09/01/2017 12:00 AM RADIOLOGIC EXAMINATION KNEE 1/2 VIEWS Reviewed 09/18/2012 12:00 AM DRAIN/INJ JOINT/BURSA W/O US Reviewed 09/18/2012 12:00 AM Kenalog, Per 10 Mg [facility]#4998-3112-53 Reviewed 10/25/2017 12:00 AM RADIOLOGIC EXAMINATION KNEE [...] 12/06/2012 12:00 AM Kenalog, Per 10 Mg [facility]#1532-7123-01 Reviewed 12/22/2012 12:00 AM TOTAL CORTISOL Reviewed 05/09/2018 12:00 AM MAMMOGRAPHY SCREENING, DIGITAL Reviewed 05/11/2018 12:00 AM CHEST X-RAY 2VW FRONTAL&LATL Reviewed 05/11/2018 12:00 AM Mammogram, screening, bilateral Reviewed 06/27/2018 12:00 AM MRI JOINT UPR EXTR W/O&W/DYE Reviewed 04/26/2013 12:00 AM DRAIN/INJ JOINT/BURSA W/O US Reviewed 04/26/2013 12:00 AM Kenalog, Per 10 Mg [facility]#3740-7367-29 Reviewed 05/10/2013 12:00 AM DRAIN/INJ JOINT/BURSA W/O US Reviewed 05/10/2013 12:00 AM Kenalog, Per 10 Mg [facility]#3974-7103-16 Reviewed 05/10/2013 12:00 AM DRAIN/INJ JOINT/BURSA W/O US Reviewed 05/10/2013 12:00 AM Kenalog, Per 10 Mg [facility]#9166-0581-20 Reviewed 05/28/2013 12:00 AM MAMMOGRAM SCREENING Reviewed 05/21/2013 12:00 AM COMPLETE CBC AUTOMATED Reviewed 05/21/2013 12:00 AM ASSAY OF FREE THYROXINE Reviewed 05/21/2013 12:00 AM ASSAY THYROID STIM HORMONE Reviewed 05/21/2013 12:00 AM GLYCOSYLATED HEMOGLOBIN TEST Reviewed 05/21/2013 12:00 AM ASSAY OF IRON Reviewed 05/21/2013 12:00 AM ASSAY OF FOLIC ACID SERUM Reviewed 05/21/2013 12:00 AM VITAMIN B-12 Reviewed 08/27/2013 12:00 AM COMPLETE CBC W/AUTO [...] 03/05/2014 12:00 AM Kenalog, Per 10 Mg [facility]#9102-8571-57 Reviewed 04/05/2014 12:00 AM COMPLETE CBC W/AUTO [...] Avg Glucose 171.4 mg/dLVITAMIN B12 493.0 pg/mL History Of Immunizations Not available. History of [...] 3:43PM Pain in joint; Bilateral Hip Feb 6 2011 4:20PM Bursitis Feb 6 2011 4:20PM Pain in joint; Knee Feb 6 2011 4:20PM Fibromyalgia Feb 6 2011 4:20PM Lumbago Feb 6 2011 4:20PM Cervicalgia Feb 6 2011 4:20PM Trochanteric Bursitis Feb 13 2011 9:26AM Insomnia Feb 16 2011 3:26PM Dermatitis Feb 16 2011 3:26PM Otitis Externa, Acute - Right b 2011 3:26PM Pain in joint; Knee b 2011 11:24AM Fibromyalgia b 2011 11:24AM Lumbago b 2011 11:24AM Cervicalgia b 2011 11:24AM Osteoarthritis of knee b 2011 1:04PM Diabetes Mellitus, Type II May [...] 3:50PM Chronic Right Pain in joint; Knee Feb 2014 3:20PM Lumbago Feb 12 2014 3:20PM Pain in joint; shoulder region, Right Feb 12 2014 3:20PM Osteoarthritis, Left Hip Feb 12 2014 3:20PM Fatigue Feb 12 2014 3:20PM Diabetes Mellitus, Type II Feb 13 2014 12:09PM Dysuria Feb 13 2014 12:09PM Gastroesophageal Reflux Feb 2014 8:20AM Diabetes Mellitus, Type II Feb 17 2014 8:20AM Hyperlipidemia, mixed Feb 2014 8:20AM Hypertension Feb 2014 8:20AM Overactive bladder Feb 2014 8:20AM Chronic pain syndrome Feb 05 [...] (acquired), left foot Aug 17 2018 8:22AM Payers Insurance Name Company Name Plan Name Plan Number Policy Number Policy Group Number Start Date [facility] Gpa [id number] Saturday, 2015 BCBS [employer]cbs [facility] [id number] Saturday, 2009 BCBS [employer] [facility] [id number] Wednesday, 2009 History of Encounters Visit Date Visit Type Provider 08/17/2018 Office visit Brannon Jackson DO 06/27/2018 Office visit Brannon Jackson DO 06/24/2018 Office visit Lakia Reina KST OPERATOR 05/24/2018 Office visit Ty Infante MD 05/11/2018 Office visit Brannon Manuel DO 03/28/2018 Office visit Brannon Manuel DO 12/02/2017 Office visit Brannon Manuel DO 11/11/2017 Office visit Brannon Manuel DO 11/09/2017 Office visit Harjinder Paiz PA-C 10/28/2017 Office visit Lakia Reina KST OPERATOR 10/25/2017 Office visit Regina Mcnally KST OPERATOR 10/05/2017 Office visit Regina Uli KST OPERATOR 09/01/2017 Office visit Brannon Manuel DO 06/29/2017 Office visit Karyna Gilbert KST OPERATOR 06/18/2017 Office visit Karyna Gilbert KST OPERATOR 05/09/2017 Office visit Brannon Manuel DO 03/08/2017 Office visit Brannon Manuel DO 01/25/2017 Office visit Brannon Manuel DO 01/19/2017 Office visit Regina Mcnally KST OPERATOR 01/04/2017 Procedures Reagan Guzmanuman DO 12/24/2016 Office visit Brannon Manuel DO 12/23/2016 Surgery Reagan Bouman DO 12/14/2016 Office visit Reagan Bouman DO 11/25/2016 Office visit Brannon Manuel DO 11/19/2016 Office visit Sandra Milton KST OPERATOR 11/02/2016 Office visit Lakia Reina KST OPERATOR 09/09/2016 Office visit Brannon Manuel DO 05/18/2016 Office visit Brannon Manuel DO 05/05/2016 Office visit 05/05/2016 Office visit Brannon Manuel DO 02/05/2016 Office visit Brannon Manuel DO 12/09/2015 Voided Cass BRAY 10/13/2015 Office visit Brannon Manuel DO 09/18/2015 Nurse visit Cass BRAY 09/03/2015 Procedures Reagan Bouman DO 08/29/2015 Office visit Brannon Manuel DO 08/20/2015 Office visit Cass BRAY 08/01/2015 Office visit Cass BRAY 07/02/2015 Office visit Cass BRAY 06/04/2015 Office visit Cass BRAY 05/15/2015 Office visit Brannon Jackson DO 05/08/2015 Nurse visit Cass BRAY 04/28/2015 Office visit 04/28/2015 Office visit Brannon Manuel DO 04/09/2015 Office visit Cass BRAY 04/01/2015 [facility] Dinesh Zhu MD 04/01/2015 Office visit Brannon Manuel DO 03/10/2015 Office visit Cass BRAY 02/25/2015 Office visit Cass BRAY 02/05/2015 Nurse visit Cass BRAY 12/17/2014 [facility] Dinesh Zhu MD 12/17/2014 Office visit Brannon Manuel DO 12/12/2014 Office visit Cass ARCINIEGAP 10/29/2014 Office visit Cass BRAY 10/02/2014 Office visit Cass BRAY 09/20/2014 Office visit Brannon Jackson DO 09/05/2014 Office visit Cass ARCINIEGAP 07/29/2014 Office visit Cass BRAY 07/18/2014 Office visit Brannon Jackson DO 07/03/2014 Office visit Rob Ruiz APRN 06/11/2014 Office visit Cass BRAY 04/29/2014 Office visit Cass BRAY 04/29/2014 Office visit Brannon Jackson DO 04/05/2014 Office visit Harjinder Paiz PA-C 02/25/2014 Office visit Cass ARCINIEGAP 01/02/2014 Office visit Cass BRAY 12/18/2013 Office visit Cass BRAY 09/13/2013 Office visit Brannon Jackson DO 08/27/2013 Office visit Regina Mcnally KST OPERATOR 08/17/2013 Office visit Ray Tripathi APRN 05/21/2013 Office visit Brannon Jackson DO 05/10/2013 Office visit Anirudh Conway MD 04/26/2013 Office visit Anirudh Conway MD 12/22/2012 Office visit Brannon Jackson DO 12/14/2012 [facility] Sandra Ca MD 12/12/2012 Office visit Brannon Jackson DO 12/12/2012 [facility] Sandra Ca MD 12/06/2012 Office visit Anirudh Conway MD 11/24/2012 Office visit Regina Mcnally APRN 10/12/2012 [facility] Anirudh Conway MD 10/10/2012 Office visit Brannon Jackson DO 09/18/2012 Office visit Anirudh Conway MD 09/01/2012 Office visit Brannon Jackson DO 08/21/2012 Office visit Brannon Jackson DO 08/01/2012 Office visit Brannon Jackson DO 07/11/2012 Office visit Regina Mcnally KST OPERATOR 06/14/2012 Office visit Anirudh Conway MD 05/25/2012 Office visit Anirudh Conway MD 05/04/2012 Office visit Brannon Jackson DO 12/23/2011 Office visit Anirudh Conway MD 12/16/2011 Office visit Brannon Jackson DO 12/06/2011 Office visit Anirudh Conway MD 11/11/2011 Office visit Brannon Jackson DO 10/28/2011 Office visit Brannon Jackson DO 10/22/2011 [facility] Valery Cerna MD 10/21/2011 [facility] Valery Cerna MD 10/19/2011 Office visit Brannon Jackson DO 10/19/2011 [facility] Anderson Dawkins MD 10/07/2011 Office visit Brannon Jackson DO 04/27/2011 Office visit Brannon Jackson DO 04/16/2011 Office visit Brannon Jackson DO 12/18/2010 Office visit Brannon Jackson DO 11/17/2010 Office visit Brannon Jackson DO 10/08/2010 Office visit Brannon Jackson DO 08/18/2010 Office visit Regina Mcnally KST OPERATOR 02/03/2010 Office visit Brannon Jackson DO 12/02/2009 Office visit Brannon Jackson DO 06/27/2009 Office visit Brannon Jackson DO
--- OUTSIDE RECORDS SUMMARY | 2018-10-25 07:27 | XMS REPORT ---
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 Role Phone Brannon Jackson PCP Brannon [...] oral route once daily for 90 days Name Start Date Expiration [...] 2 times per day for 7 days [place] Thyroid 120 mg oral tablet 12/14/2012 12/09/2013 [...] by oral route once daily Taking Tolterodine hydrocodone-acetaminophen 10-325 mg oral tablet 06/27/2018 07/27/2018 take 1 tablet by oral route every 6 hours as needed for pain for 30 days May fill Discontinued Name Start Date Discontinued Date SIG [...] Active Diabetes Mellitus, Type II Active Hyperlipidemia, mixed Active Hypertension Active Obesity Active Fibromyalgia Active [...] Reviewed 12/13/2011 12:00 AM Kenalog per 10Mg [facility]#[address]-93(Man) Reviewed 12/23/2011 12:00 AM DRAIN/INJ JOINT/BURSA W/O US Reviewed 12/23/2011 12:00 AM Kenalog 40 Mg [facility]#3411-9215-93 Reviewed 11/19/2016 12:00 AM X-RAY EXAM OF HAND Reviewed 01/19/2017 12:00 AM COMPLETE CBC W/AUTO DIFF WBC Reviewed 01/19/2017 12:00 AM COMPREHEN METABOLIC PANEL Reviewed 01/19/2017 12:00 AM GLYCOSYLATED HEMOGLOBIN TEST Reviewed 05/25/2012 12:00 AM INJ TRIGGER POINT 1/2 MUSCL Reviewed 05/25/2012 12:00 AM Kenalog, Per [address] [facility]#4168-5874-62 Reviewed 06/14/2012 12:00 AM DRAIN/INJ JOINT/BURSA W/O US Reviewed 06/14/2012 12:00 AM Kenalog, Per [address] [facility]#8743-9515-89 Reviewed 05/09/2017 12:00 AM MAMMOGRAPHY SCREENING, DIGITAL Reviewed 07/11/2012 12:00 AM THER/PROPH/DIAG INJ SC/IM Reviewed 07/11/2012 12:00 AM Decadron [address] [facility]#[id number] (Manuel) Reviewed 07/11/2012 12:00 AM Depo-Medrol [address] [facility]#[id number]-Apbuogxh Reviewed 08/21/2012 12:00 AM ASSAY CARBOXYHB QUANT Reviewed 09/01/2017 12:00 AM RADIOLOGIC EXAMINATION KNEE 1/2 VIEWS Reviewed 09/18/2012 12:00 AM DRAIN/INJ JOINT/BURSA W/O US Reviewed 09/18/2012 12:00 AM Kenalog, Per [address] [facility]#8115-1358-19 Reviewed 10/25/2017 12:00 AM RADIOLOGIC EXAMINATION KNEE [...] 12/06/2012 12:00 AM Kenalog, Per [address] [facility]#3432-1500-92 Reviewed 12/22/2012 12:00 AM TOTAL CORTISOL Reviewed 05/09/2018 12:00 AM MAMMOGRAPHY SCREENING, DIGITAL Reviewed 05/11/2018 12:00 AM CHEST X-RAY 2VW FRONTAL&LATL Reviewed 05/11/2018 12:00 AM Mammogram, screening, bilateral Reviewed 06/27/2018 12:00 AM MRI JOINT UPR EXTR W/O&W/DYE Reviewed 04/26/2013 12:00 AM DRAIN/INJ JOINT/BURSA W/O US Reviewed 04/26/2013 12:00 AM Kenalog, Per [address] [facility]#3816-0638-22 Reviewed 05/10/2013 12:00 AM DRAIN/INJ JOINT/BURSA W/O US Reviewed 05/10/2013 12:00 AM Kenalog, Per [address] [facility]#9336-5851-46 Reviewed 05/10/2013 12:00 AM DRAIN/INJ JOINT/BURSA W/O US Reviewed 05/10/2013 12:00 AM Kenalog, Per [address] [facility]#5634-1945-65 Reviewed 05/28/2013 12:00 AM MAMMOGRAM SCREENING Reviewed [...] 03/05/2014 12:00 AM Kenalog, Per [address] [facility]#0012-6066-97 Reviewed 04/05/2014 12:00 AM COMPLETE CBC W/AUTO [...] II tests twice daily Depressive Disorder Hyperlipidemia, mixed Syncope Routine gynecological examination Feb 03 2010 [...] Policy Number Policy Group Number Start Date [facility] Gpa [id number] Saturday, 2015 [employer] [facility] [id number] Saturday, 2009 [employer] [facility] [id number] Wednesday, 2009 History of Encounters Visit Date Visit Type Provider 08/17/2018 Office visit Brannon Jackson DO 06/27/2018 Office visit Brannon Jackson DO 06/24/2018 Office visit Lakia Reina FINISHER SPECIAL STOCKS 05/24/2018 Office visit Ty Infante MD 05/11/2018 Office visit Brannon Manuel DO 03/28/2018 Office visit Brannon Manuel DO 12/02/2017 Office visit Brannon Manuel DO 11/11/2017 Office visit Brannon Manuel DO 11/09/2017 Office visit Harjinder Paiz PA-C 10/28/2017 Office visit Lakia Reina FINISHER SPECIAL STOCKS 10/25/2017 Office visit Regina Mcnally FINISHER SPECIAL STOCKS 10/05/2017 Office visit Regina Uli FINISHER SPECIAL STOCKS 09/01/2017 Office visit Brannon Manuel DO 06/29/2017 Office visit Karyna Gilbert FINISHER SPECIAL STOCKS 06/18/2017 Office visit Karyna Gilbert FINISHER SPECIAL STOCKS 05/09/2017 Office visit Brannon Manuel DO 03/08/2017 Office visit Brannon Manuel DO 01/25/2017 Office visit Brannon Manuel DO 01/19/2017 Office visit Regina Mcnally FINISHER SPECIAL STOCKS 01/04/2017 Procedures Reagan Guzmanuman DO 12/24/2016 Office visit Brannon Manuel DO 12/23/2016 Surgery Reagan Bouman DO 12/14/2016 Office visit Reagan Bouman DO 11/25/2016 Office visit Brannon Manuel DO 11/19/2016 Office visit Sandra Milton FINISHER SPECIAL STOCKS 11/02/2016 Office visit Lakia Reina FINISHER SPECIAL STOCKS 09/09/2016 Office visit Brannon Manuel DO 05/18/2016 [...] DO 04/09/2015 Office visit Cass BRAY 04/01/2015 [facility] Dinesh Zhu MD 04/01/2015 Office visit Brannon Manuel DO 03/10/2015 Office visit Cass BRAY 02/25/2015 Office visit Cass BRAY 02/05/2015 Nurse visit Cass BRAY 12/17/2014 [facility] Dinesh Zhu MD 12/17/2014 Office visit [...] Jackson DO 08/27/2013 Office visit Regina Mcnally FINISHER SPECIAL STOCKS 08/17/2013 Office visit Ray Tripathi APRN 05/21/2013 Office visit Brannon Jackson DO 05/10/2013 Office visit Anirudh Conway MD 04/26/2013 Office visit Anirudh Conway MD 12/22/2012 Office visit Brannon Jackson DO 12/14/2012 [facility] Sandra Ca MD 12/12/2012 Office visit Brannon Jackson DO 12/12/2012 [facility] Sandra Ca MD 12/06/2012 Office visit Anirudh Conway MD 11/24/2012 Office visit Regina Mcnally APRN 10/12/2012 [facility] Anirudh Conway MD 10/10/2012 Office visit Brannon Jackson DO 09/18/2012 Office visit Anirudh Conway MD 09/01/2012 Office visit Brannon Jackson DO 08/21/2012 Office visit Brannon Jackson DO 08/01/2012 Office visit Brannon Jackson DO 07/11/2012 Office visit Regina Mcnally FINISHER SPECIAL STOCKS 06/14/2012 Office visit Anirudh Conway MD 05/25/2012 Office visit Anirudh Conway MD 05/04/2012 Office visit Brannon Jackson DO 12/23/2011 Office visit Anirudh Conway MD 12/16/2011 Office visit Brannon Jackson DO 12/06/2011 Office visit Anirudh Conway MD 11/11/2011 Office visit Brannon Jackson DO 10/28/2011 Office visit Brannon Jackson DO 10/22/2011 [facility] Valery Cerna MD 10/21/2011 [facility] Valery Cerna MD 10/19/2011 Office visit Brannon Jackson DO 10/19/2011 [facility] Anderson Dawkins MD 10/07/2011 Office visit Brannon Jackson DO 04/27/2011 Office visit Brannon Jackson DO 04/16/2011 Office visit Brannon Jackson DO 12/18/2010 Office visit Brannon Jackson DO 11/17/2010 Office visit Brannon Jackson DO 10/08/2010 Office visit Brannon Jackson DO 08/18/2010 Office visit Regina Mcnally FINISHER SPECIAL STOCKS 02/03/2010 Office visit Brannon Jackson DO 12/02/2009 Office visit Brannon Jackson DO 06/27/2009 Office visit Brannon Jackson DO
[2018-10-25] MEDS ORDERED: ceFAZolin INJECTION 1,000 MG in NS (IVPB) 50 ML IV ONE (07:30)
--- OUTSIDE RECORDS SUMMARY | 2018-10-25 07:30 | XMS REPORT ---
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 Name Role Phone Brannon Jackson PCP Brannon [...] tablet 02/06/2018 TAKE 1 TABLET ONCE DAILY tolterodine 4 mg oral capsule,extended release 24hr 05/11/2018 05/06/2019 take 1 capsule (4 mg) by oral route once daily for 90 days fluoxetine 40 mg oral capsule 05/11/2018 05/06/2019 [...] oral tablet 06/29/2018 TAKE 1 TABLET DAILY Name Start Date Expiration Date SIG [...] 2 times per day for 7 days [place] Thyroid 120 mg oral tablet 12/14/2012 12/09/2013 [...] 12/13/2011 12:00 AM Kenalog per 10Mg [facility]#[address]-02(Man) Reviewed 12/23/2011 12:00 AM DRAIN/INJ JOINT/BURSA W/O US Reviewed 12/23/2011 12:00 AM Kenalog 40 Mg [facility]#4434-1964-07 Reviewed 11/19/2016 12:00 AM X-RAY EXAM OF HAND Reviewed 01/19/2017 12:00 AM COMPLETE CBC W/AUTO DIFF WBC Reviewed 01/19/2017 12:00 AM COMPREHEN METABOLIC PANEL Reviewed 01/19/2017 12:00 AM GLYCOSYLATED HEMOGLOBIN TEST Reviewed 05/25/2012 12:00 AM INJ TRIGGER POINT 1/2 MUSCL Reviewed 05/25/2012 12:00 AM Kenalog, Per 10 Mg [facility]#0019-7285-93 Reviewed 06/14/2012 12:00 AM DRAIN/INJ JOINT/BURSA W/O US Reviewed 06/14/2012 12:00 AM Kenalog, Per 10 Mg [facility]#3013-5642-03 Reviewed 05/09/2017 12:00 AM MAMMOGRAPHY SCREENING, DIGITAL Reviewed 07/11/2012 12:00 AM THER/PROPH/DIAG INJ SC/IM Reviewed 07/11/2012 12:00 AM Decadron 1 mg [facility]#[id number] (Manuel) Reviewed 07/11/2012 12:00 AM Depo-Medrol 80 mg [facility]#[id number]-Zxcxbaum Reviewed 08/21/2012 12:00 AM ASSAY CARBOXYHB QUANT Reviewed 09/01/2017 12:00 AM RADIOLOGIC EXAMINATION KNEE 1/2 VIEWS Reviewed 09/18/2012 12:00 AM DRAIN/INJ JOINT/BURSA W/O US Reviewed 09/18/2012 12:00 AM Kenalog, Per 10 Mg [facility]#4126-7888-01 Reviewed 10/25/2017 12:00 AM RADIOLOGIC EXAMINATION KNEE [...] 12/06/2012 12:00 AM Kenalog, Per 10 Mg [facility]#4043-6096-93 Reviewed 12/22/2012 12:00 AM TOTAL CORTISOL Reviewed 05/09/2018 12:00 AM MAMMOGRAPHY SCREENING, DIGITAL Reviewed 05/11/2018 12:00 AM CHEST X-RAY 2VW FRONTAL&LATL Reviewed 05/11/2018 12:00 AM Mammogram, screening, bilateral Reviewed 06/27/2018 12:00 AM MRI JOINT UPR EXTR W/O&W/DYE Reviewed 04/26/2013 12:00 AM DRAIN/INJ JOINT/BURSA W/O US Reviewed 04/26/2013 12:00 AM Kenalog, Per 10 Mg [facility]#5909-1521-88 Reviewed 05/10/2013 12:00 AM DRAIN/INJ JOINT/BURSA W/O US Reviewed 05/10/2013 12:00 AM Kenalog, Per 10 Mg [facility]#1956-1482-26 Reviewed 05/10/2013 12:00 AM DRAIN/INJ JOINT/BURSA W/O US Reviewed 05/10/2013 12:00 AM Kenalog, Per 10 Mg [facility]#7819-3269-04 Reviewed 05/28/2013 12:00 AM MAMMOGRAM SCREENING Reviewed [...] 03/05/2014 12:00 AM Kenalog, Per 10 Mg [facility]#9147-3426-16 Reviewed 04/05/2014 12:00 AM COMPLETE CBC W/AUTO [...] Date [facility] Gpa [id number] Saturday, 2015 [employer] [facility] [id number] Saturday, 2009 [employer] [facility] [id number] Wednesday, 2009 History of Encounters Visit Date Visit Type Provider 08/17/2018 Office visit Brannon Jackson DO 06/27/2018 Office visit Brannon Jackson DO 06/24/2018 Office visit Lakia Reina ELIGIBILITY WORKER 05/24/2018 Office visit Ty Infante MD 05/11/2018 Office visit Brannon Manuel DO 03/28/2018 Office visit Brannon Manuel DO 12/02/2017 Office visit Brannon Manuel DO 11/11/2017 Office visit Brannon Manuel DO 11/09/2017 Office visit Harjinder Paiz PA-C 10/28/2017 Office visit Lakia Reina ELIGIBILITY WORKER 10/25/2017 Office visit Regina Mcnally ELIGIBILITY WORKER 10/05/2017 Office visit Regina Uli ELIGIBILITY WORKER 09/01/2017 Office visit Brannon Manuel DO 06/29/2017 Office visit Karyna Gilbert ELIGIBILITY WORKER 06/18/2017 Office visit Karyna Gilbert ELIGIBILITY WORKER 05/09/2017 Office visit Brannon Manuel DO 03/08/2017 Office visit Brannon Manuel DO 01/25/2017 Office visit Brannon Manuel DO 01/19/2017 Office visit Regina Mcnally ELIGIBILITY WORKER 01/04/2017 Procedures Reagan Guzmanuman DO 12/24/2016 Office visit Brannon Manuel DO 12/23/2016 Surgery Reagan Bouman DO 12/14/2016 Office visit Reagan Bouman DO 11/25/2016 Office visit Brannon Manuel DO 11/19/2016 Office visit Sandra Milton ELIGIBILITY WORKER 11/02/2016 Office visit Lakia Reina ELIGIBILITY WORKER 09/09/2016 Office visit Brannon Manuel DO 05/18/2016 [...] DO 04/09/2015 Office visit Cass BRAY 04/01/2015 [facility] Dinesh Zhu MD 04/01/2015 Office visit Brannon Manuel DO 03/10/2015 Office visit Cass BARY 02/25/2015 Office visit Cass BRAY 02/05/2015 Nurse visit Cass BRAY 12/17/2014 [facility] Dinesh Zhu MD 12/17/2014 Office visit Brannon [...] Jackson DO 08/27/2013 Office visit Regina Mcnally ELIGIBILITY WORKER 08/17/2013 Office visit Ray Tripathi APRN 05/21/2013 Office visit Brannon Jackson DO 05/10/2013 Office visit Anirudh Conway MD 04/26/2013 Office visit Anirudh Conway MD 12/22/2012 Office visit Brannon Jackson DO 12/14/2012 [facility] Sandra Ca MD 12/12/2012 Office visit Brannon Jackson DO 12/12/2012 [facility] Sandra Ca MD 12/06/2012 Office visit Anirudh Conway MD 11/24/2012 Office visit Regina Mcnally APRN 10/12/2012 [facility] Anirudh Conway MD 10/10/2012 Office visit Brannon Jackson DO 09/18/2012 Office visit Anirudh Conway MD 09/01/2012 Office visit Brannon Jackson DO 08/21/2012 Office visit Brannon Jackson DO 08/01/2012 Office visit Brannon Jackson DO 07/11/2012 Office visit Regina Mcnally ELIGIBILITY WORKER 06/14/2012 Office visit Anirudh Conway MD 05/25/2012 Office visit Anirudh Conway MD 05/04/2012 Office visit Brannon Jackson DO 12/23/2011 Office visit Anirudh Conway MD 12/16/2011 Office visit Brannon Jackson DO 12/06/2011 Office visit Anirudh Conway MD 11/11/2011 Office visit Brannon Jackson DO 10/28/2011 Office visit Brannon Jackson DO 10/22/2011 [facility] Valery Cerna MD 10/21/2011 [facility] Valery Cerna MD 10/19/2011 Office visit Brannon Jackson DO 10/19/2011 [facility] Anderson Dawkins MD 10/07/2011 Office visit Brannon Jackson DO 04/27/2011 Office visit Brannon Jackson DO 04/16/2011 Office visit Brannon Jackson DO 12/18/2010 Office visit Brannon Jackson DO 11/17/2010 Office visit Brannon Jackson DO 10/08/2010 Office visit Brannon Jackson DO 08/18/2010 Office visit Regina Mcnally ELIGIBILITY WORKER 02/03/2010 Office visit Brannon Jackson DO 12/02/2009 Office visit Brannon Jackson DO 06/27/2009 Office visit Brannon Jackson DO
--- OUTSIDE RECORDS SUMMARY | 2018-10-25 07:32 | XMS REPORT ---
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 Role Phone Brannon Jackson PCP Brannon [...] 2 times per day for 7 days [place] Thyroid 120 mg oral tablet 12/14/2012 12/09/2013 [...] 12/13/2011 12:00 AM Kenalog per 10Mg Im-[facility]#[address]-28(Man) Reviewed 12/23/2011 12:00 AM DRAIN/INJ JOINT/BURSA W/O US Reviewed 12/23/2011 12:00 AM Kenalog 40 Mg [facility]#4873-2613-34 Reviewed 11/19/2016 12:00 AM X-RAY EXAM OF HAND Reviewed 01/19/2017 12:00 AM COMPLETE CBC W/AUTO DIFF WBC Reviewed 01/19/2017 12:00 AM COMPREHEN METABOLIC PANEL Reviewed 01/19/2017 12:00 AM GLYCOSYLATED HEMOGLOBIN TEST Reviewed 05/25/2012 12:00 AM INJ TRIGGER POINT 1/2 MUSCL Reviewed 05/25/2012 12:00 AM Kenalog, Per 10 Mg [facility]#3310-9567-26 Reviewed 06/14/2012 12:00 AM DRAIN/INJ JOINT/BURSA W/O US Reviewed 06/14/2012 12:00 AM Kenalog, Per 10 Mg [facility]#4285-3500-61 Reviewed 05/09/2017 12:00 AM MAMMOGRAPHY SCREENING, DIGITAL Reviewed 07/11/2012 12:00 AM THER/PROPH/DIAG INJ SC/IM Reviewed 07/11/2012 12:00 AM Decadron 1 mg [facility]#[id number] (Manuel) Reviewed 07/11/2012 12:00 AM Depo-Medrol 80 mg [facility]#[id number]-Ivohleof Reviewed 08/21/2012 12:00 AM ASSAY CARBOXYHB QUANT Reviewed 09/01/2017 12:00 AM RADIOLOGIC EXAMINATION KNEE 1/2 VIEWS Reviewed 09/18/2012 12:00 AM DRAIN/INJ JOINT/BURSA W/O US Reviewed 09/18/2012 12:00 AM Kenalog, Per 10 Mg [facility]#4788-2485-94 Reviewed 10/25/2017 12:00 AM RADIOLOGIC EXAMINATION KNEE [...] Per 10 Mg [facility]#1009-3897-86 Reviewed 12/22/2012 12:00 AM TOTAL CORTISOL Reviewed 05/09/2018 12:00 AM MAMMOGRAPHY SCREENING, DIGITAL Reviewed 05/11/2018 12:00 AM CHEST X-RAY 2VW FRONTAL&LATL Reviewed 05/11/2018 12:00 AM Mammogram, screening, bilateral Reviewed 06/27/2018 12:00 AM MRI JOINT UPR EXTR W/O&W/DYE Reviewed 04/26/2013 12:00 AM DRAIN/INJ JOINT/BURSA W/O US Reviewed 04/26/2013 12:00 AM Kenalog, Per 10 Mg [facility]#8862-2282-82 Reviewed 05/10/2013 12:00 AM DRAIN/INJ JOINT/BURSA W/O US Reviewed 05/10/2013 12:00 AM Kenalog, Per 10 Mg [facility]#7742-2760-44 Reviewed 05/10/2013 12:00 AM DRAIN/INJ JOINT/BURSA W/O US Reviewed 05/10/2013 12:00 AM Kenalog, Per 10 Mg [facility]#3014-9074-96 Reviewed 05/28/2013 12:00 AM MAMMOGRAM SCREENING Reviewed [...] Per 10 Mg [facility]#7344-5683-58 Reviewed 04/05/2014 12:00 AM COMPLETE CBC W/AUTO [...] Right shoulder pain Jun 27 2018 4:18PM Payers Insurance Name Company Name Plan Name Plan Number Policy Number Policy Group Number Start Date [employer] [id number] Saturday, 2015 [employer] [place] [id number] Saturday, 2009 [employer] [place] [id number] Wednesday, 2009 History of Encounters Visit Date [...] Paiz PA-C 10/28/2017 Office visit Lakia Reina EMERGENCY SPECIALIST 10/25/2017 Office visit Regina Mcnally EMERGENCY SPECIALIST 10/05/2017 Office visit Regina Mcnally EMERGENCY SPECIALIST 09/01/2017 Office visit Brannon Manuel DO 06/29/2017 Office visit Karyna Gilbert EMERGENCY SPECIALIST 06/18/2017 Office visit Karyna Gilbert EMERGENCY SPECIALIST 05/09/2017 Office visit Brannon Manuel DO 03/08/2017 Office visit Brannon Manuel DO 01/25/2017 Office visit Brannon Manuel DO 01/19/2017 Office visit Regina Uli EMERGENCY SPECIALIST 01/04/2017 Procedures Reagan Lehman DO 12/24/2016 Office visit Brannon Manuel DO 12/23/2016 Surgery Reagan Bouman DO 12/14/2016 Office visit Reagan Lehman DO 11/25/2016 Office visit Brannon Manuel DO 11/19/2016 Office visit Sandra Milton EMERGENCY SPECIALIST 11/02/2016 Office visit Lakia Reina EMERGENCY SPECIALIST 09/09/2016 Office visit Brannon Manuel DO 05/18/2016 [...] visit Cass ARCINIEGAP 10/29/2014 Office visit Cass ARCINIEGAP 10/02/2014 Office visit Cass BRAY 09/20/2014 Office visit Brannon Jackson DO 09/05/2014 Office visit Cass ARCINIEGAP 07/29/2014 Office visit Cass ARCINIEGAP 07/18/2014 Office visit Brannon Jackson DO 07/03/2014 Office visit Rob Ruiz EMERGENCY SPECIALIST 06/11/2014 Office visit Cass ARCINIEGAP 04/29/2014 Office visit Cass ARCINIEGAP 04/29/2014 Office visit Brannon Jackson DO 04/05/2014 Office visit Harjinder Paiz PA-C 02/25/2014 Office visit Cass BRAY 01/02/2014 Office visit Cass ARCINIEGAP 12/18/2013 Office visit Cass BRAY 09/13/2013 Office visit Brannon Jackson DO 08/27/2013 Office visit Regina Mcnally EMERGENCY SPECIALIST 08/17/2013 Office visit Ray Tripathi EMERGENCY SPECIALIST 05/21/2013 Office visit Brannon Jackson DO 05/10/2013 Office visit Anirudh Conway MD 04/26/2013 Office visit Anirudh Conway MD 12/22/2012 Office visit Brannon Jackson DO 12/14/2012 [facility] Sandra Ca MD 12/12/2012 Office visit Brannon Jackson DO 12/12/2012 [facility] Sandra Ca MD 12/06/2012 Office visit Anirudh Conawy MD 11/24/2012 Office visit Regina Mcnally APRN 10/12/2012 [facility] Anirudh Conway MD 10/10/2012 Office visit Brannon Jackson DO 09/18/2012 Office visit Anirudh Conway MD 09/01/2012 Office visit Brannon Jackson DO 08/21/2012 Office visit Brannon Jackson DO 08/01/2012 Office visit Brannon Jackson DO 07/11/2012 Office visit Regina Mcnally EMERGENCY SPECIALIST 06/14/2012 Office visit Anirudh Conway MD 05/25/2012 Office visit Anirudh Conway MD 05/04/2012 Office visit Brannon Jackson DO 12/23/2011 Office visit Anirudh Conway MD 12/16/2011 Office visit Brannon Jackson DO 12/06/2011 Office visit Anirudh Conway MD 11/11/2011 Office visit Brannon Jackson DO 10/28/2011 Office visit Brannon Jackson DO 10/22/2011 [facility] Valery Cerna MD 10/21/2011 [facility] Valery Cerna MD 10/19/2011 Office visit Brannon Jackson DO 10/19/2011 [facility] Anderson Dawkins MD 10/07/2011 Office visit Brannon Jackson DO 04/27/2011 Office visit Brannon Jackson DO 04/16/2011 Office visit Brannon Jackson DO 12/18/2010 Office visit Brannon Jackson DO 11/17/2010 Office visit Brannon Jackson DO 10/08/2010 Office visit Brannon Jackson DO 08/18/2010 Office visit Regina Mcnally EMERGENCY SPECIALIST 02/03/2010 Office visit Brannon Jackson DO 12/02/2009 Office visit Brannon Jackson DO 06/27/2009 Office visit Brannon Jackson DO
--- OUTSIDE RECORDS SUMMARY | 2018-10-25 07:35 | XMS REPORT ---
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 Adjuster Name Role Phone Brannon Jackson PCP Brannon [...] 2 times per day for 7 days [place] Thyroid 120 mg oral tablet 12/14/2012 12/09/2013 [...] HC BMI BSA BMI Percentile O2 Sat(%) 06/27/2018 4:16:00 PM 130 mmHg 70 mmHg [...] rpm 97.9 F 238 lbs 68 in 36.19 kg/m2 2.2758 m 97 % 12/14/2016 2:45:00 PM 168 mmHg 93 mmHg 92 bpm 20 rpm 97.7 F 238 lbs 68 in 36.1874 kg/m 2.28 m2 11/25/2016 3:26:00 PM 162 mmHg 98 mmHg 98 bpm 20 rpm 98.2 F 230 lbs 68 in 34.97 kg/m2 2.2373 m 97 % 11/19/2016 5:41:00 PM 180 mmHg 120 mmHg 98 bpm 99.2 F 233 lbs 68 in 35.4272 kg/m 2.25 m2 99 % 11/02/2016 5:12:00 PM [...] rpm 98 F 274 lbs 68 in 41.66 kg/m2 2.4419 m 12/02/2009 3:42:00 PM 150 mmHg [...] Reviewed 12/13/2011 12:00 AM Kenalog per 10Mg Im-[facility]#[address]-54(Man) Reviewed 12/23/2011 12:00 AM DRAIN/INJ JOINT/BURSA W/O US Reviewed 12/23/2011 12:00 AM Kenalog 40 Mg Im-[facility]#3230-9322-13 Reviewed 11/19/2016 12:00 AM X-RAY EXAM OF HAND Reviewed 01/19/2017 12:00 AM COMPLETE CBC W/AUTO DIFF WBC Reviewed 01/19/2017 12:00 AM COMPREHEN METABOLIC PANEL Reviewed 01/19/2017 12:00 AM GLYCOSYLATED HEMOGLOBIN TEST Reviewed 05/25/2012 12:00 AM INJ TRIGGER POINT 1/2 MUSCL Reviewed 05/25/2012 12:00 AM Kenalog, Per 10 Mg [facility]#6574-5418-30 Reviewed 06/14/2012 12:00 AM DRAIN/INJ JOINT/BURSA W/O US Reviewed 06/14/2012 12:00 AM Kenalog, Per 10 Mg [facility]#5714-8356-17 Reviewed 05/09/2017 12:00 AM MAMMOGRAPHY SCREENING, DIGITAL Reviewed 07/11/2012 12:00 AM THER/PROPH/DIAG INJ SC/IM Reviewed 07/11/2012 12:00 AM Decadron 1 mg [facility]#[id number] (Manuel) Reviewed 07/11/2012 12:00 AM Depo-Medrol 80 mg [facility]#[id number]-Kvxefttg Reviewed 08/21/2012 12:00 AM ASSAY CARBOXYHB QUANT Reviewed 09/01/2017 12:00 AM RADIOLOGIC EXAMINATION KNEE 1/2 VIEWS Reviewed 09/18/2012 12:00 AM DRAIN/INJ JOINT/BURSA W/O US Reviewed 09/18/2012 12:00 AM Kenalog, Per 10 Mg [facility]#9092-5165-43 Reviewed 10/25/2017 12:00 AM RADIOLOGIC EXAMINATION KNEE [...] 12/06/2012 12:00 AM Kenalog, Per 10 Mg [facility]#9565-1187-14 Reviewed 12/22/2012 12:00 AM TOTAL CORTISOL Reviewed 05/09/2018 12:00 AM MAMMOGRAPHY SCREENING, DIGITAL Reviewed 05/11/2018 12:00 AM CHEST X-RAY 2VW FRONTAL&LATL Reviewed 05/11/2018 12:00 AM Mammogram, screening, bilateral Reviewed 06/27/2018 12:00 AM MRI JOINT UPR EXTR W/O&W/DYE Reviewed 04/26/2013 12:00 AM DRAIN/INJ JOINT/BURSA W/O US Reviewed 04/26/2013 12:00 AM Kenalog, Per 10 Mg [facility]#9437-4011-52 Reviewed 05/10/2013 12:00 AM DRAIN/INJ JOINT/BURSA W/O US Reviewed 05/10/2013 12:00 AM Kenalog, Per 10 Mg [facility]#8637-9617-78 Reviewed 05/10/2013 12:00 AM DRAIN/INJ JOINT/BURSA W/O US Reviewed 05/10/2013 12:00 AM Kenalog, Per 10 Mg [facility]#0720-9250-67 Reviewed 05/28/2013 12:00 AM MAMMOGRAM SCREENING Reviewed [...] JOINT/BURSA W/O US Reviewed 03/05/2014 12:00 AM Kencain, Per 10 Mg [facility]#8706-3462-64 Reviewed 04/05/2014 12:00 AM COMPLETE CBC W/AUTO [...] Trochanteric Bursitis Feb 13 2011 9:26AM Insomnia b 16 2011 3:26PM Dermatitis b 16 2011 3:26PM Otitis Externa, Acute - [...] joint; Knee Feb 2014 3:20PM Lumbago Feb 2014 3:20PM Pain in joint; shoulder region, Right Feb 2014 3:20PM Osteoarthritis, Left Hip Feb 2014 3:20PM Fatigue Feb 2014 3:20PM Diabetes Mellitus, Type II Feb 13 2014 12:09PM Dysuria Feb 2014 12:09PM Gastroesophageal Reflux Feb 2014 8:20AM Diabetes Mellitus, Type II Feb 2014 8:20AM Hyperlipidemia, mixed Feb 2014 8:20AM [...] Policy Number Policy Group Number Start Date [facility] [place] Gpa [id number] Saturday, 2015 [employer] [place] [id number] Saturday, 2009 [employer] [place] [id number] Wednesday, 2009 History of Encounters Visit Date Visit Type Provider 06/27/2018 Office visit Brannon Jackson DO 06/24/2018 Office visit Lakia Reina APRN 05/24/2018 Office visit Ty Infante MD 05/11/2018 Office visit Brannon Jackson DO 03/28/2018 Office visit Brannon Jackson DO 12/02/2017 Office visit Brannon Jackson DO 11/11/2017 Office visit Brannon Jackson DO 11/09/2017 Office visit Harjinder Paiz PA-C 10/28/2017 Office visit Lakia Reina INTERNATIONAL TRADE COMPLIANCE MANAGER 10/25/2017 Office visit Regina Mcnally APRN 10/05/2017 Office visit Regina Mcnally INTERNATIONAL TRADE COMPLIANCE MANAGER 09/01/2017 Office visit Brannon [place]te DO 06/29/2017 Office visit Karyna Gilbert INTERNATIONAL TRADE COMPLIANCE MANAGER 06/18/2017 Office visit Karyna Gilbert INTERNATIONAL TRADE COMPLIANCE MANAGER 05/09/2017 Office visit Brannon [place] DO 03/08/2017 Office visit Brannon [place] DO 01/25/2017 Office visit Brannon Manuel DO 01/19/2017 Office visit Regina Mcnally INTERNATIONAL TRADE COMPLIANCE MANAGER 01/04/2017 Procedures Reagan Bouman DO 12/24/2016 Office visit Brannon Manuel DO 12/23/2016 Surgery Reagan Bouman DO 12/14/2016 Office visit Reagan Bouman DO 11/25/2016 Office visit Brannon Manuel DO 11/19/2016 Office visit Sandra Yoan INTERNATIONAL TRADE COMPLIANCE MANAGER 11/02/2016 Office visit Lakia Reina INTERNATIONAL TRADE COMPLIANCE MANAGER 09/09/2016 Office visit Brannon Manuel DO 05/18/2016 [...] Brannon Manuel DO 12/12/2014 Office visit Cass Arellano GLYCERIN OPERATOR 10/29/2014 Office visit Cass Arellano GLYCERIN OPERATOR 10/02/2014 Office visit Cass Arellano GLYCERIN OPERATOR 09/20/2014 Office visit Brannon Jackson DO 09/05/2014 Office visit Cass Arellano GLYCERIN OPERATOR 07/29/2014 Office visit Cass ARCINIEGAP 07/18/2014 Office visit Brannon Jackson DO 07/03/2014 Office visit Rob Ruiz INTERNATIONAL TRADE COMPLIANCE MANAGER 06/11/2014 Office visit Cass Arellano GLYCERIN OPERATOR 04/29/2014 Office visit Cass Arellano GLYCERIN OPERATOR 04/29/2014 Office visit Brannon Jackson DO 04/05/2014 Office visit Harjinder Paiz PA-C 02/25/2014 Office visit Cass ARCINIEGAP 01/02/2014 Office visit Cass ARCINIEGAP 12/18/2013 Office visit Cass ARCINIEGAP 09/13/2013 Office visit Brannon Jackson DO 08/27/2013 Office visit Regian Mcnally INTERNATIONAL TRADE COMPLIANCE MANAGER 08/17/2013 Office visit Ray Tripathi INTERNATIONAL TRADE COMPLIANCE MANAGER 05/21/2013 Office visit Brannon Jackson DO 05/10/2013 Office visit Anirudh Conway MD 04/26/2013 Office visit Anirudh Conway MD 12/22/2012 Office visit Brannon Jackson DO 12/14/2012 [facility] Sandra Ca MD 12/12/2012 Office visit Brannon Jackson DO 12/12/2012 [facility] Sandra Ca MD 12/06/2012 Office visit Anirudh Conway MD 11/24/2012 Office visit Regina Mcnally INTERNATIONAL TRADE COMPLIANCE MANAGER 10/12/2012 [facility] Anirudh Conway MD 10/10/2012 Office visit Brannon Jackson DO 09/18/2012 Office visit Anirudh Conway MD 09/01/2012 Office visit Brannon Jackson DO 08/21/2012 Office visit Brannon Jackson DO 08/01/2012 Office visit Brannon Jackson DO 07/11/2012 Office visit Regina Mcnally INTERNATIONAL TRADE COMPLIANCE MANAGER 06/14/2012 Office visit Anirudh Conway MD 05/25/2012 Office visit Anirudh Conway MD 05/04/2012 Office visit Brannon Jackson DO 12/23/2011 Office visit Anirudh Conway MD 12/16/2011 Office visit Brannon Jackson DO 12/06/2011 Office visit Anirudh Conway MD 11/11/2011 Office visit Brannon Jackson DO 10/28/2011 Office visit Brannon Jackson DO 10/22/2011 [facility] Valery Cerna MD 10/21/2011 [facility] Valery Cerna MD 10/19/2011 Office visit Brannon Jackson DO 10/19/2011 [facility] Anderson Dawkins MD 10/07/2011 Office visit [...]
--- OUTSIDE RECORDS SUMMARY | 2018-10-25 07:38 | XMS REPORT ---
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 Cosmetologist Name Role Phone Brannon Jackson PCP Brannon Jackson PreferredProvider Allergies and Adverse Reactions Name Reaction Notes promethazine vomiting Zofran vomiting Plan of Treatment Planned Activity Comments Planned Date Planned Time Plan/Goal MRI pelvis and hip left wo contrast 08/01/2015 12:00 AM MRI THORACIC SPINE W/O CONTRAST 12/15/2016 12:00 AM MRI LUMBAR SPINE W/O CONTRAST 12/15/2016 12:00 AM Hemoglobin A1c measurement 05/11/2018 12:00 AM Lipid panel 05/11/2018 12:00 AM CMP 05/11/2018 12:00 AM VITAMIN B12 05/11/2018 12:00 AM MICROALBUMIN UR RANDOM 05/11/2018 12:00 AM MRI ANY JOINT UPPER EXT W/WO CONTRAST 06/27/2018 12:00 AM Ganglion cyst right hand 12/14/2016 [...] capsule,delayed release(DR/EC) 05/11/2018 TAKE 1 CAPSULE DAILY hydrocodone-acetaminophen 10-325 mg oral tablet 06/27/2018 07/27/2018 take 1 tablet by oral route every 6 hours as needed for pain for 30 days May fill losartan-hydrochlorothiazide 100-25 mg oral tablet 06/29/2018 TAKE [...] 2 times per day for 7 days [place] Thyroid 120 mg oral tablet 12/14/2012 12/09/2013 [...] Description Status Onset Depressive Disorder Active Diabetes mellitus, type II Active Hyperlipidemia, Mixed Active Hypertension Active [...] F 236 lbs 68 in 35.8833 kg/m 2.27 m2 99 % 05/09/2017 8:24:00 AM 154 mmHg 88 mmHg 96 bpm 20 rpm 98.1 F 233 lbs 68 in 35.43 kg/m2 2.2518 m 97 % 03/08/2017 3:58:00 PM 138 mmHg 86 mmHg 91 bpm 16 rpm 97.3 F 230 lbs 68 in 34.971 kg/m 2.24 m2 97 % 01/25/2017 3:22:00 PM 168 mmHg 98 mmHg 97 bpm 22 rpm 97 F 222 lbs 68 in 33.75 kg/m2 2.198 m 97 % 01/19/2017 9:38:00 AM 136 mmHg 82 mmHg 74 bpm 18 rpm 97.9 F 227 lbs 68 in 34.5149 kg/m 2.22 m2 99 % 01/04/2017 2:54:00 PM 156 mmHg 96 mmHg 86 bpm 20 rpm 97.8 F 238 lbs 68 in 36.19 kg/m2 2.2758 m 12/24/2016 10:21:00 AM 156 mmHg [...] 12/13/2011 12:00 AM Kenalog per 10Mg Im-[facility]#[address]-77(Man) Reviewed 12/23/2011 12:00 AM DRAIN/INJ JOINT/BURSA W/O US Reviewed 12/23/2011 12:00 AM Kenalog 40 Mg Im-[facility]#9811-7203-11 Reviewed 11/19/2016 12:00 AM X-RAY EXAM OF HAND Reviewed 01/19/2017 12:00 AM COMPLETE CBC W/AUTO DIFF WBC Reviewed 01/19/2017 12:00 AM COMPREHEN METABOLIC PANEL Reviewed 01/19/2017 12:00 AM GLYCOSYLATED HEMOGLOBIN TEST Reviewed 05/25/2012 12:00 AM INJ TRIGGER POINT 1/2 MUSCL Reviewed 05/25/2012 12:00 AM Kenalog, Per 10 Mg [facility]#8647-3008-43 Reviewed 06/14/2012 12:00 AM DRAIN/INJ JOINT/BURSA W/O US Reviewed 06/14/2012 12:00 AM Kenalog, Per 10 Mg [facility]#2114-1310-77 Reviewed 05/09/2017 12:00 AM MAMMOGRAPHY SCREENING, DIGITAL Reviewed 07/11/2012 12:00 AM THER/PROPH/DIAG INJ SC/IM Reviewed 07/11/2012 12:00 AM Decadron 1 mg [facility]#[id number] (Manuel) Reviewed 07/11/2012 12:00 AM Depo-Medrol 80 mg [facility]#[id number]-Bhuhdxec Reviewed 08/21/2012 12:00 AM ASSAY CARBOXYHB QUANT Reviewed 09/01/2017 12:00 AM RADIOLOGIC EXAMINATION KNEE 1/2 VIEWS Reviewed 09/18/2012 12:00 AM DRAIN/INJ JOINT/BURSA W/O US Reviewed 09/18/2012 12:00 AM Kenalog, Per 10 Mg [facility]#5419-5905-05 Reviewed 10/25/2017 12:00 AM RADIOLOGIC EXAMINATION KNEE [...] 12/06/2012 12:00 AM Kenalog, Per 10 Mg [facility]#2496-1742-73 Reviewed 12/22/2012 12:00 AM TOTAL CORTISOL Reviewed 05/09/2018 12:00 AM MAMMOGRAPHY SCREENING, DIGITAL Reviewed 05/11/2018 12:00 AM CHEST X-RAY 2VW FRONTAL&LATL Reviewed 05/11/2018 12:00 AM Mammogram, screening, bilateral Reviewed 04/26/2013 12:00 AM DRAIN/INJ JOINT/BURSA W/O US Reviewed 04/26/2013 12:00 AM Kenalog, Per 10 Mg [facility]#2214-9523-26 Reviewed 05/10/2013 12:00 AM DRAIN/INJ JOINT/BURSA W/O US Reviewed 05/10/2013 12:00 AM Kenalog, Per 10 Mg [facility]#7695-0356-78 Reviewed 05/10/2013 12:00 AM DRAIN/INJ JOINT/BURSA W/O US Reviewed 05/10/2013 12:00 AM Kenalog, Per 10 Mg [facility]#0526-2748-15 Reviewed 05/28/2013 12:00 AM MAMMOGRAM SCREENING Reviewed [...] 03/05/2014 12:00 AM Kenalog, Per 10 Mg [facility]#0620-2232-33 Reviewed 04/05/2014 12:00 AM COMPLETE CBC W/AUTO [...] Uncontrolled Dec 02 2009 3:44PM Hypertension Diabetes mellitus, type II tests twice daily Depressive Disorder Hyperlipidemia, [...] 2011 3:26PM Otitis Externa, Acute - Right Feb 2011 3:26PM Pain in joint; Knee Feb 2011 11:24AM Fibromyalgia Feb 23 2011 11:24AM Lumbago Feb 23 2011 11:24AM Cervicalgia Feb 2011 11:24AM Osteoarthritis of knee Feb 23 2011 1:04PM Diabetes Mellitus, Type II [...] Feb 13 2014 12:09PM Gastroesophageal Reflux Feb 17 2014 8:20AM Diabetes Mellitus, Type II Feb 17 2014 8:20AM Hyperlipidemia, mixed Feb 2014 8:20AM Hypertension Feb 17 2014 8:20AM Overactive bladder Feb 17 2014 8:20AM Chronic pain syndrome Feb [...] Number Policy Group Number Start Date [facility] Gpa [id number] Saturday, 2015 [employer] [place] [id number] Saturday, 2009 [employer] [place] [id number] Wednesday, 2009 History of Encounters Visit Date Visit Type Provider 06/27/2018 Office visit Brannon Jackson DO 06/24/2018 Office visit Lakia Reina APRN 05/24/2018 Office visit Ty Infante MD 05/11/2018 Office visit Brannon Jackson DO 03/28/2018 Office visit Brannon Jackson DO 12/02/2017 Office visit Brannon Jackson DO 11/11/2017 Office visit Brannon Jackson DO 11/09/2017 Office visit Harjinder Paiz PA-C 10/28/2017 Office visit Lakia Reina INTEGRATION LEAD 10/25/2017 Office visit Regina Mcnally INTEGRATION LEAD 10/05/2017 Office visit Regina Mcnally INTEGRATION LEAD 09/01/2017 Office visit Brannon Manuel DO 06/29/2017 Office visit Karyna Gilbert INTEGRATION LEAD 06/18/2017 Office visit Karyna Gilbert INTEGRATION LEAD 05/09/2017 Office visit Brannon Manuel DO 03/08/2017 Office visit Brannon Manuel DO 01/25/2017 Office visit Brannon Manuel DO 01/19/2017 Office visit Regina Uli INTEGRATION LEAD 01/04/2017 Procedures Reagan Lehman DO 12/24/2016 Office visit Brannon Manuel DO 12/23/2016 Surgery Reagan Bouman DO 12/14/2016 Office visit Reagan Lehman DO 11/25/2016 Office visit Brannon Manuel DO 11/19/2016 Office visit Sandra Milton INTEGRATION LEAD 11/02/2016 Office visit Lakia Reina INTEGRATION LEAD 09/09/2016 Office visit Brannon Manuel DO 05/18/2016 [...] Jackson DO 07/03/2014 Office visit Rob Ruiz INTEGRATION LEAD 06/11/2014 Office visit Cass ARCINIEGAP 04/29/2014 Office visit Cass ARCINIEGAP 04/29/2014 Office visit Brannon Jackson DO 04/05/2014 Office visit Harjinder Paiz PA-C 02/25/2014 Office visit Cass BRAY 01/02/2014 Office visit Cass ARCINIEGAP 12/18/2013 Office visit Cass BRAY 09/13/2013 Office visit Brannon Jackson DO 08/27/2013 Office visit Regina Mcnally INTEGRATION LEAD 08/17/2013 Office visit Ray Tripathi INTEGRATION LEAD 05/21/2013 Office visit Brannon Jackson DO 05/10/2013 Office visit Anirudh Conway MD 04/26/2013 Office visit Anirudh Conway MD 12/22/2012 Office visit Brannon Jackson DO 12/14/2012 [facility] Sandra Ca MD 12/12/2012 Office visit Brannon Jackson DO 12/12/2012 [facility] Sandra Ca MD 12/06/2012 Office visit Anirudh Conway MD 11/24/2012 Office visit Regina Mcnally APRN 10/12/2012 [facility] Anirudh Conway MD 10/10/2012 Office visit Brannon Jackson DO 09/18/2012 Office visit Anirudh Conway MD 09/01/2012 Office visit Brannon Jackson DO 08/21/2012 Office visit Brannon Jackson DO 08/01/2012 Office visit Brannon Jackson DO 07/11/2012 Office visit Regina Mcnally INTEGRATION LEAD 06/14/2012 Office visit Anirudh Conway MD 05/25/2012 Office visit Anirudh Conway MD 05/04/2012 Office visit Brannon Jackson DO 12/23/2011 Office visit Anirudh Conway MD 12/16/2011 Office visit Brannon Jackson DO 12/06/2011 Office visit Anirudh Conway MD 11/11/2011 Office visit Brannon Jackson DO 10/28/2011 Office visit Brannon Jackson DO 10/22/2011 [facility] Valery Cerna MD 10/21/2011 [facility] Valery Cerna MD 10/19/2011 Office visit Brannon Jackson DO 10/19/2011 [facility] Anderson Dawkins MD 10/07/2011 Office visit Brannon Jackson DO 04/27/2011 Office visit Brannon Jackson DO 04/16/2011 Office visit Brannon Jackson DO 12/18/2010 Office visit Brannon Jackson DO 11/17/2010 Office visit Brannon Jackson DO 10/08/2010 Office visit rBannon Jackson DO 08/18/2010 Office visit Regina Mcnally INTEGRATION LEAD 02/03/2010 Office visit Brannon Jackson DO 12/02/2009 Office visit Brannon Jackson DO 06/27/2009 Office visit Brannon Jackson DO
[2018-10-25] MEDS: LACTATED RINGERS 1,000 ML IV PRN ×2 (07:40→10:10)
--- OUTSIDE RECORDS SUMMARY | 2018-10-25 07:40 | XMS REPORT ---
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#[address]-80(Man) Reviewed 12/23/2011 12:00 AM DRAIN/INJ JOINT/BURSA W/O US Reviewed 12/23/2011 12:00 AM Kenalog 40 Mg Im-[facility]#6677-6918-47 Reviewed 11/19/2016 12:00 AM X-RAY EXAM OF HAND Reviewed 01/19/2017 12:00 AM COMPLETE CBC W/AUTO DIFF WBC Reviewed 01/19/2017 12:00 AM COMPREHEN METABOLIC PANEL Reviewed 01/19/2017 12:00 AM GLYCOSYLATED HEMOGLOBIN TEST Reviewed 05/25/2012 12:00 AM INJ TRIGGER POINT 1/2 MUSCL Reviewed 05/25/2012 12:00 AM Kenalog, Per 10 Mg [facility]#1633-8860-72 Reviewed 06/14/2012 12:00 AM DRAIN/INJ JOINT/BURSA W/O US Reviewed 06/14/2012 12:00 AM Kenalog, Per 10 Mg [facility]#1290-8482-85 Reviewed 05/09/2017 12:00 AM MAMMOGRAPHY SCREENING, DIGITAL Reviewed 07/11/2012 12:00 AM THER/PROPH/DIAG INJ SC/IM Reviewed 07/11/2012 12:00 AM Decadron 1 mg [facility]#[id number] (Manuel) Reviewed 07/11/2012 12:00 AM Depo-Medrol 80 mg [facility]#[id number]-Xhwbbwqh Reviewed 08/21/2012 12:00 AM ASSAY CARBOXYHB QUANT Reviewed 09/01/2017 12:00 AM RADIOLOGIC EXAMINATION KNEE 1/2 VIEWS Reviewed 09/18/2012 12:00 AM DRAIN/INJ JOINT/BURSA W/O US Reviewed 09/18/2012 12:00 AM Kenalog, Per 10 Mg [facility]#5374-2260-50 Reviewed 10/25/2017 12:00 AM RADIOLOGIC EXAMINATION KNEE [...] 12/06/2012 12:00 AM Kenalog, Per 10 Mg [facility]#6713-5738-09 Reviewed 12/22/2012 12:00 AM TOTAL CORTISOL Reviewed 05/09/2018 12:00 AM MAMMOGRAPHY SCREENING, DIGITAL Reviewed 05/11/2018 12:00 AM CHEST X-RAY 2VW FRONTAL&LATL Reviewed 05/11/2018 12:00 AM Mammogram, screening, bilateral Reviewed 04/26/2013 12:00 AM DRAIN/INJ JOINT/BURSA W/O US Reviewed 04/26/2013 12:00 AM Kenalog, Per 10 Mg [facility]#0342-4500-59 Reviewed 05/10/2013 12:00 AM DRAIN/INJ JOINT/BURSA W/O US Reviewed 05/10/2013 12:00 AM Kenalog, Per 10 Mg [facility]#6795-1159-15 Reviewed 05/10/2013 12:00 AM DRAIN/INJ JOINT/BURSA W/O US Reviewed 05/10/2013 12:00 AM Kenalog, Per 10 Mg [facility]#9548-6894-56 Reviewed 05/28/2013 12:00 AM MAMMOGRAM SCREENING Reviewed [...] 03/05/2014 12:00 AM Kenalog, Per 10 Mg [facility]#9047-7411-90 Reviewed 04/05/2014 12:00 AM COMPLETE CBC W/AUTO [...] Policy Number Policy Group Number Start Date [facility] Gpa [id number] Saturday, 2015 [employer] [place] [id number] Saturday, 2009 [employer] [place] [id number] Wednesday, 2009 History of Encounters Visit Date Visit Type Provider 06/27/2018 Office visit Brannon Jackson DO 06/24/2018 Office visit Lakia Reina APRN 05/24/2018 Office visit Ty Infante MD 05/11/2018 Office visit Brannon Jackson DO 03/28/2018 Office visit Brannon Jackson DO 12/02/2017 Office visit Brannon Jackson DO 11/11/2017 Office visit Brannon Jackson DO 11/09/2017 Office visit Harjinder Paiz PA-C 10/28/2017 Office visit Lakia Reina TURF FARM WORKER 10/25/2017 Office visit Regina Mcnally TURF FARM WORKER 10/05/2017 Office visit Regina Mcnally TURF FARM WORKER 09/01/2017 Office visit Brannon Manuel DO 06/29/2017 Office visit Karyna Gilbert TURF FARM WORKER 06/18/2017 Office visit Karyna Gilbert TURF FARM WORKER 05/09/2017 Office visit Brannon Manuel DO 03/08/2017 Office visit Brannon Manuel DO 01/25/2017 Office visit Brannon Manuel DO 01/19/2017 Office visit Regina Uli TURF FARM WORKER 01/04/2017 Procedures Reagan Lehman DO 12/24/2016 Office visit Brannon Manuel DO 12/23/2016 Surgery Reagan Bouman DO 12/14/2016 Office visit Reagan Lehman DO 11/25/2016 Office visit Brannon Manuel DO 11/19/2016 Office visit Sandra Milton TURF FARM WORKER 11/02/2016 Office visit Lakia Reina TURF FARM WORKER 09/09/2016 Office visit Brannon Manuel DO [...] visit Brannon Manuel DO 12/12/2014 Office visit aCss ARCINIEGAP 10/29/2014 Office visit Cass ARCINIEGAP 10/02/2014 Office visit Cass BRAY 09/20/2014 Office visit Brannon Jackson DO 09/05/2014 Office visit Cass ARCINIEGAP 07/29/2014 Office visit Cass ARCINIEGAP 07/18/2014 Office visit Brannon Jackson DO 07/03/2014 Office visit Rob Ruiz TURF FARM WORKER 06/11/2014 Office visit Cass ARCINIEGAP 04/29/2014 Office visit Cass ARCINIEGAP 04/29/2014 Office visit Brannon Jackson DO 04/05/2014 Office visit Harjinder Paiz PA-C 02/25/2014 Office visit Cass BRAY 01/02/2014 Office visit Cass ARCINIEGAP 12/18/2013 Office visit Cass BRAY 09/13/2013 Office visit Brannon Jackson DO 08/27/2013 Office visit Regina Mcnally TURF FARM WORKER 08/17/2013 Office visit Ray Tripathi TURF FARM WORKER 05/21/2013 Office visit Brannon Jackson DO 05/10/2013 Office visit Anirudh Conway MD 04/26/2013 Office visit Anirudh Conway MD 12/22/2012 Office visit Brannon Jackson DO 12/14/2012 [facility] Sandra Ca MD 12/12/2012 Office visit Brannon Jackson DO 12/12/2012 [facility] Sandra Ca MD 12/06/2012 Office visit Anirudh Conway MD 11/24/2012 Office visit Regina Mcnally APRN 10/12/2012 [facility] Anirudh Conway MD 10/10/2012 Office visit Brannon Jackson DO 09/18/2012 Office visit Anirudh Conway MD 09/01/2012 Office visit Brannon Jackson DO 08/21/2012 Office visit Brannon Jackson DO 08/01/2012 Office visit Brannon Jackson DO 07/11/2012 Office visit Regina Mcnally TURF FARM WORKER 06/14/2012 Office visit Anirudh Conway MD 05/25/2012 Office visit Anirudh Conway MD 05/04/2012 Office visit Brannon Jackson DO 12/23/2011 Office visit Anirudh Conway MD 12/16/2011 Office visit Brannon Jackson DO 12/06/2011 Office visit Anirudh Conway MD 11/11/2011 Office visit Brannon Jackson DO 10/28/2011 Office visit Brannon Jackson DO 10/22/2011 [facility] Valery Cerna MD 10/21/2011 [facility] Valery Cerna MD 10/19/2011 Office visit Brannon Jackson DO 10/19/2011 [facility] Anderson Dawkins MD 10/07/2011 Office visit Brannon Jackson DO 04/27/2011 Office visit Brannon Jackson DO 04/16/2011 Office visit Brannon Jackson DO 12/18/2010 Office visit Brannon Jackson DO 11/17/2010 Office visit Brannon Jackson DO 10/08/2010 Office visit Brannon Jackson DO 08/18/2010 Office visit Regina Mcnally TURF FARM WORKER 02/03/2010 Office visit Brannon Jackson DO 12/02/2009 Office visit Brannon Jackson DO 06/27/2009 Office visit Brannon Jackson DO
--- NOTE | 2018-10-25 07:41 | Progress Note-Pre Operative ---
Pre-Operative Progress Note H&P Reviewed The H&P was reviewed, patient examined and no changes noted. Date Seen by Provider: Oct 25, 2018 Time Seen by Provider: 07:40 Date H&P Reviewed: Oct 25, 2018 Time H&P Reviewed: 07:40 Pre-Operative Diagnosis: right rotator cuff and SLAP tears SUSAN YOON MD Oct 25, 2018 07:41
--- NOTE | 2018-10-25 07:42 | Progress Note-Post Operative ---
Post-Operative Progess Note Surgeon (s)/Compliance Assistant (s) Surgeon SUSAN YOON MD Compliance Assistant: Kamlesh Salazar Pre-Operative Diagnosis right rotator cuff and SLAP tears Post-Operative Diagnosis right rotator cuff and SLAP tears Procedure & Operative Findings Date of Procedure 10/25/18 Procedure Performed/Findings right shoulder arthroscopic biceps tenotomy, acromioplasty and open rotator cuff repair Anesthesia Type GETA Estimated Blood Loss Estimated blood loss (mL): minimal Specimens/Packing Specimens Removed none Packing: none SUSAN YOON MD Oct 25, 2018 07:42
--- OUTSIDE RECORDS SUMMARY | 2018-10-25 07:43 | XMS REPORT ---
Author Author Brannon Jackson [facility] Address [address] [place], [place] [id number] Care Team Providers Care Financial Operations Analyst Name Role Phone Brannon Jackson PCP Brannon [...] 2 times per day for 7 days [place] Thyroid 120 mg oral tablet 12/14/2012 12/09/2013 [...] 12:00 AM Kenalog per 10Mg Im-[facility]#[address]-89(Man) Reviewed 12/23/2011 12:00 AM DRAIN/INJ JOINT/BURSA W/O US Reviewed 12/23/2011 12:00 AM Kenalog 40 Mg Im-[facility]#6219-7867-58 Reviewed 11/19/2016 12:00 AM X-RAY EXAM OF HAND Reviewed 01/19/2017 12:00 AM COMPLETE CBC W/AUTO DIFF WBC Reviewed 01/19/2017 12:00 AM COMPREHEN METABOLIC PANEL Reviewed 01/19/2017 12:00 AM GLYCOSYLATED HEMOGLOBIN TEST Reviewed 05/25/2012 12:00 AM INJ TRIGGER POINT 1/2 MUSCL Reviewed 05/25/2012 12:00 AM Kenalog, Per 10 Mg [facility]#2076-3335-57 Reviewed 06/14/2012 12:00 AM DRAIN/INJ JOINT/BURSA W/O US Reviewed 06/14/2012 12:00 AM Kenalog, Per 10 Mg [facility]#3640-1170-62 Reviewed 05/09/2017 12:00 AM MAMMOGRAPHY SCREENING, DIGITAL Reviewed 07/11/2012 12:00 AM THER/PROPH/DIAG INJ SC/IM Reviewed 07/11/2012 12:00 AM Decadron 1 mg [facility]#17163636401 (Manuel) Reviewed 07/11/2012 12:00 AM Depo-Medrol 80 mg [facility]#[id number]-Fxzjdjwn Reviewed 08/21/2012 12:00 AM ASSAY CARBOXYHB QUANT Reviewed 09/01/2017 12:00 AM RADIOLOGIC EXAMINATION KNEE 1/2 VIEWS Reviewed 09/18/2012 12:00 AM DRAIN/INJ JOINT/BURSA W/O US Reviewed 09/18/2012 12:00 AM Kenalog, Per 10 Mg [facility]#1163-6747-88 Reviewed 10/25/2017 12:00 AM RADIOLOGIC EXAMINATION KNEE [...] 12/06/2012 12:00 AM Kenalog, Per 10 Mg [facility]#8788-6260-32 Reviewed 12/22/2012 12:00 AM TOTAL CORTISOL Reviewed 05/09/2018 12:00 AM MAMMOGRAPHY SCREENING, DIGITAL Reviewed 05/11/2018 12:00 AM CHEST X-RAY 2VW FRONTAL&LATL Reviewed 05/11/2018 12:00 AM Mammogram, screening, bilateral Reviewed 04/26/2013 12:00 AM DRAIN/INJ JOINT/BURSA W/O US Reviewed 04/26/2013 12:00 AM Kenalog, Per 10 Mg [facility]#7294-8207-33 Reviewed 05/10/2013 12:00 AM DRAIN/INJ JOINT/BURSA W/O US Reviewed 05/10/2013 12:00 AM Kenalog, Per 10 Mg [facility]#6524-2855-32 Reviewed 05/10/2013 12:00 AM DRAIN/INJ JOINT/BURSA W/O US Reviewed 05/10/2013 12:00 AM Kenalog, Per 10 Mg [facility]#4986-5417-10 Reviewed 05/28/2013 12:00 AM MAMMOGRAM SCREENING Reviewed [...] 03/05/2014 12:00 AM Kenalog, Per 10 Mg [facility]#3828-1725-75 Reviewed 04/05/2014 12:00 AM COMPLETE CBC W/AUTO [...] Policy Number Policy Group Number Start Date [facility] Gpa [id number] Saturday, 2015 [employer] [place] [id number] Saturday, 2009 [employer] [place] [id number] Wednesday, 2009 History of Encounters Visit Date Visit Type Provider 06/27/2018 Office visit Brannon Jackson DO 06/24/2018 Office visit Lakia Reina APRN 05/24/2018 Office visit Ty Infante MD 05/11/2018 Office visit Brannon Jackson DO 03/28/2018 Office visit Brannon Jackson DO 12/02/2017 Office visit Brannon Jackson DO 11/11/2017 Office visit Brannon Jackson DO 11/09/2017 Office visit Harjinder Paiz PA-C 10/28/2017 Office visit Lakia Reina DRUG AND ALCOHOL COUNSELLOR 10/25/2017 Office visit Regina Mcnally DRUG AND ALCOHOL COUNSELLOR 10/05/2017 Office visit Regina Mcnally DRUG AND ALCOHOL COUNSELLOR 09/01/2017 Office visit Brannon Manuel DO 06/29/2017 Office visit Karyna Gilbert DRUG AND ALCOHOL COUNSELLOR 06/18/2017 Office visit Karyna Gilbert DRUG AND ALCOHOL COUNSELLOR 05/09/2017 Office visit Brannon Manuel DO 03/08/2017 Office visit Brannon Manuel DO 01/25/2017 Office visit Brannon Manuel DO 01/19/2017 Office visit Regina Uli DRUG AND ALCOHOL COUNSELLOR 01/04/2017 Procedures Reagan Lehman DO 12/24/2016 Office visit Brannon Manuel DO 12/23/2016 Surgery Reagan Bouman DO 12/14/2016 Office visit Reagan Lehman DO 11/25/2016 Office visit Brannon Manuel DO 11/19/2016 Office visit Sandra Milton DRUG AND ALCOHOL COUNSELLOR 11/02/2016 Office visit Lakia Reina DRUG AND ALCOHOL COUNSELLOR 09/09/2016 Office visit Brannon Manuel DO 05/18/2016 [...] visit Brannon Jackson DO 09/05/2014 Office visit aCss ARCINIEGAP 07/29/2014 Office visit Cass ARCINIEGAP 07/18/2014 Office visit Brannon Jackson DO 07/03/2014 Office visit Rob Ruiz DRUG AND ALCOHOL COUNSELLOR 06/11/2014 Office visit Cass ARCINIEGAP 04/29/2014 Office visit Cass ARCINIEGAP 04/29/2014 Office visit Brannon Jackson DO 04/05/2014 Office visit Harjinder Paiz PA-C 02/25/2014 Office visit Cass BRAY 01/02/2014 Office visit Cass ARCINIEGAP 12/18/2013 Office visit Cass BRAY 09/13/2013 Office visit Brannon Jackson DO 08/27/2013 Office visit Regina Mcnally DRUG AND ALCOHOL COUNSELLOR 08/17/2013 Office visit Ray Tripathi DRUG AND ALCOHOL COUNSELLOR 05/21/2013 Office visit Brannon Jackson DO 05/10/2013 Office visit Anirudh Conway MD 04/26/2013 Office visit Anirudh Conway MD 12/22/2012 Office visit Brannon Jackson DO 12/14/2012 [facility] Sandra Ca MD 12/12/2012 Office visit Brannon Jackson DO 12/12/2012 [facility] Sandra Ca MD 12/06/2012 Office visit Anirudh Conway MD 11/24/2012 Office visit Regina Mcnally APRN 10/12/2012 [facility] Anirudh Conway MD 10/10/2012 Office visit Brannon Jackson DO 09/18/2012 Office visit Anirudh Conway MD 09/01/2012 Office visit Brannon Jackson DO 08/21/2012 Office visit Brannon Jacksno DO 08/01/2012 Office visit Brannon Jackson DO 07/11/2012 Office visit Regina Mcnally DRUG AND ALCOHOL COUNSELLOR 06/14/2012 Office visit Anirudh Conway MD 05/25/2012 Office visit Anirudh Conway MD 05/04/2012 Office visit Brannon Jackson DO 12/23/2011 Office visit Anirudh Conway MD 12/16/2011 Office visit Brannon Jackson DO 12/06/2011 Office visit Anirudh Conway MD 11/11/2011 Office visit Brannon Jackson DO 10/28/2011 Office visit Brannon Jackson DO 10/22/2011 [facility] Valery Cerna MD 10/21/2011 [facility] Valery Cerna MD 10/19/2011 Office visit Brannon Jackson DO 10/19/2011 [facility] Anderson Dawkins MD 10/07/2011 Office visit Brannon Jackson DO 04/27/2011 Office visit Brannon Jackson DO 04/16/2011 Office visit Brannon Jackson DO 12/18/2010 Office visit Brannon Jackson DO 11/17/2010 Office visit Brannon Jackson DO 10/08/2010 Office visit Brannon Jackson DO 08/18/2010 Office visit Regina Mcnally DRUG AND ALCOHOL COUNSELLOR 02/03/2010 Office visit Brannon Jackson DO 12/02/2009 Office visit Brannon Jackson DO 06/27/2009 Office visit Brannon Jackson DO
--- OUTSIDE RECORDS SUMMARY | 2018-10-25 07:45 | XMS REPORT ---
Author Author Lakia Reina [facility] Address [address] [place], [place] [id number] Care Team Providers Care Building Coordinator Name Role Phone Lakia Reina PCP Brannon Jackson PreferredProvider Allergies and Adverse [...] CAPSULE DAILY hydrocodone-acetaminophen 10-325 mg oral tablet 06/06/2018 07/06/2018 take 1 tablet by oral route every 6 hours for 30 days Name Start Date Expiration Date SIG [...] 2 times per day for 7 days [place] Thyroid 120 mg oral tablet 12/14/2012 12/09/2013 [...] 2 times per day for 7 days losartan-hydrochlorothiazide 100-25 mg oral tablet 05/18/2016 05/13/2017 TAKE 1 TABLET DAILY for 90 days alprazolam 0.25 mg oral tablet 07/07/2016 [...] HC BMI BSA BMI Percentile O2 Sat(%) 06/24/2018 8:31:00 AM 176 mmHg 102 mmHg [...] F 233.8 lbs 68 in 35.55 kg/m2 2.2557 m 97 % 10/28/2017 6:22:00 PM 138 mmHg 88 mmHg 86 bpm 18 rpm 99 F 234 lbs 68 in 35.5792 kg/m 2.26 m2 98 % 10/25/2017 1:17:00 PM 156 mmHg 88 mmHg 102 bpm 18 rpm 97.4 F 231.5 lbs 68 in 35.20 kg/m2 2.2446 m 99 % 10/05/2017 8:30:00 AM 129 mmHg 79 mmHg 96 bpm 18 rpm 98.2 F 230 lbs 68 in 34.971 kg/m 2.24 m2 99 % 09/01/2017 1:26:00 PM 130 mmHg 88 mmHg 99 bpm 20 rpm 97.5 F 231 lbs 68 in 35.12 kg/m2 2.2421 m 97 % 06/29/2017 7:35:00 PM 150 mmHg 90 mmHg 83 bpm 18 rpm 97 F 236 lbs 68 in 35.8833 kg/m 2.27 m2 98 % 06/18/2017 8:36:00 AM 160 mmHg 100 mmHg 84 bpm 18 rpm 98.6 F 236 lbs 68 in 35.88 kg/m2 2.2663 m 99 % 05/09/2017 8:24:00 AM 154 mmHg 88 mmHg 96 bpm 20 rpm 98.1 F 233 lbs 68 in 35.4272 kg/m 2.25 m2 97 % 03/08/2017 3:58:00 PM 138 mmHg 86 mmHg 91 bpm 16 rpm 97.3 F 230 lbs 68 in 34.97 kg/m2 2.2373 m 97 % 01/25/2017 3:22:00 PM 168 mmHg 98 mmHg 97 bpm 22 rpm 97 F 222 lbs 68 in 33.7546 kg/m 2.20 m2 97 % 01/19/2017 9:38:00 AM 136 mmHg 82 mmHg 74 bpm 18 rpm 97.9 F 227 lbs 68 in 34.51 kg/m2 2.2226 m 99 % 01/04/2017 2:54:00 PM 156 mmHg 96 mmHg 86 bpm 20 rpm 97.8 F 238 lbs 68 in 36.1874 kg/m 2.28 m2 12/24/2016 10:21:00 AM 156 mmHg [...] Reviewed 12/13/2011 12:00 AM Kenalog per 10Mg Im-[facility]#[address]-56(Man) Reviewed 12/23/2011 12:00 AM DRAIN/INJ JOINT/BURSA W/O US Reviewed 12/23/2011 12:00 AM Kenalog 40 Mg Im-[facility]#3616-8047-96 Reviewed 11/19/2016 12:00 AM X-RAY EXAM OF HAND Reviewed 01/19/2017 12:00 AM COMPLETE CBC W/AUTO DIFF WBC Reviewed 01/19/2017 12:00 AM COMPREHEN METABOLIC PANEL Reviewed 01/19/2017 12:00 AM GLYCOSYLATED HEMOGLOBIN TEST Reviewed 05/25/2012 12:00 AM INJ TRIGGER POINT 1/2 MUSCL Reviewed 05/25/2012 12:00 AM Kenalog, Per 10 Mg [facility]#9528-5495-73 Reviewed 06/14/2012 12:00 AM DRAIN/INJ JOINT/BURSA W/O US Reviewed 06/14/2012 12:00 AM Kenalog, Per 10 Mg [facility]#9584-5874-78 Reviewed 05/09/2017 12:00 AM MAMMOGRAPHY SCREENING, DIGITAL Reviewed 07/11/2012 12:00 AM THER/PROPH/DIAG INJ SC/IM Reviewed 07/11/2012 12:00 AM Decadron 1 mg [facility]#[id number] (Manuel) Reviewed 07/11/2012 12:00 AM Depo-Medrol 80 mg [facility]#[id number]-Hbrwaclv Reviewed 08/21/2012 12:00 AM ASSAY CARBOXYHB QUANT Reviewed 09/01/2017 12:00 AM RADIOLOGIC EXAMINATION KNEE 1/2 VIEWS Reviewed 09/18/2012 12:00 AM DRAIN/INJ JOINT/BURSA W/O US Reviewed 09/18/2012 12:00 AM Kenalog, Per 10 Mg [facility]#8390-6118-91 Reviewed 10/25/2017 12:00 AM RADIOLOGIC EXAMINATION KNEE [...] 12:00 AM Kenalog, Per 10 Mg [facility]#6470-7756-57 Reviewed 12/22/2012 12:00 AM TOTAL CORTISOL Reviewed 05/11/2018 12:00 AM CHEST X-RAY 2VW FRONTAL&LATL Reviewed 05/11/2018 12:00 AM Mammogram, screening, bilateral Reviewed 04/26/2013 12:00 AM DRAIN/INJ JOINT/BURSA W/O US Reviewed 04/26/2013 12:00 AM Kenalog, Per 10 Mg [facility]#5677-5483-09 Reviewed 05/10/2013 12:00 AM DRAIN/INJ JOINT/BURSA W/O US Reviewed 05/10/2013 12:00 AM Kenalog, Per 10 Mg [facility]#4339-5607-08 Reviewed 05/10/2013 12:00 AM DRAIN/INJ JOINT/BURSA W/O US Reviewed 05/10/2013 12:00 AM Kenalog, Per 10 Mg [facility]#9989-8625-49 Reviewed 05/28/2013 12:00 AM MAMMOGRAM SCREENING Reviewed [...] 12:00 AM Kenalog, Per 10 Mg [facility]#0447-3607-21 Reviewed 04/05/2014 12:00 AM COMPLETE CBC W/AUTO [...] Cervicalgia Feb 2011 4:20PM Trochanteric Bursitis Feb 13 2011 9:26AM Insomnia Feb 2011 3:26PM Dermatitis b 2011 3:26PM Otitis Externa, Acute - Right Dec 16 2011 3:26PM Pain in joint; Knee b 2011 11:24AM Fibromyalgia Dec 23 2011 11:24AM [...] joint; Knee Dec 12 2014 3:20PM Lumbago Fe2014 3:20PM Pain in joint; shoulder region, Right [...] injury, initial encounter Jun 24 2018 8:41AM Payers Insurance Name Company Name Plan Name Plan Number Policy Number Policy Group Number Start Date [facility] Gpa [id number] Saturday, 2015 [employer] [place] [id number] Saturday, 2009 [employer] [place] [id number] Wednesday, 2009 History of Encounters Visit Date Visit Type Provider 06/24/2018 Office visit Lakia Reina APRN 05/24/2018 Office visit Ty Infante MD 05/11/2018 Office visit Brannon Jackson DO 03/28/2018 Office visit Brannon Jackson DO 12/02/2017 Office visit Brannon Jackson DO 11/11/2017 Office visit Brannon Jackson DO 11/09/2017 Office visit Harjinder Paiz PA-C 10/28/2017 Office visit Lakia Reina AGILE DEVELOPER 10/25/2017 Office visit Regina Mcnally AGILE DEVELOPER 10/05/2017 Office visit Regina Mcnally APRN 09/01/2017 Office visit Brannon Jackson DO 06/29/2017 Office visit Karyna Gilbert APRN 06/18/2017 Office visit Karyna Gilbert AGILE DEVELOPER 05/09/2017 Office visit Brannon Jackson DO 03/08/2017 Office visit Brannon Jackson DO 01/25/2017 Office visit Brannon Jackson DO 01/19/2017 Office visit Regina Mcnally AGILE DEVELOPER 01/04/2017 Procedures Reagan Guzmanuman DO 12/24/2016 Office visit Brannonpatrica Jackson DO 12/23/2016 Surgery Reagan Bouman DO 12/14/2016 Office visit Reagan Guzmanuman DO 11/25/2016 Office visit Brannon Jackson DO 11/19/2016 Office visit Sandra Milton AGILE DEVELOPER 11/02/2016 Office visit Lakia Reina AGILE DEVELOPER 09/09/2016 Office visit Brannon Jackson DO 05/18/2016 Office visit Brannon Simpsonte DO 05/05/2016 Office visit 05/05/2016 Office visit Brannon Jackson DO 02/05/2016 Office visit Brannon Jackson DO 12/09/2015 Voided Cass BRAY 10/13/2015 Office visit Brannon Tidwellhite DO 09/18/2015 Nurse visit Cass BRAY 09/03/2015 Procedures Reagan Lehman DO 08/29/2015 Office visit Brannon Simpsonte DO 08/20/2015 Office visit Cass BRAY 08/01/2015 Office visit Cass BRAY 07/02/2015 Office visit Cass BRAY 06/04/2015 Office visit Cass BRAY 05/15/2015 Office visit Brannon Tidwellhite DO 05/08/2015 Nurse visit Cass BRAY 04/28/2015 Office visit 04/28/2015 Office visit Brannon Simpsonte DO 04/09/2015 Office visit Cass BRAY 04/01/2015 Procedures Dinesh Zhu MD 04/01/2015 Office visit Brannon Tidwellhite DO 03/10/2015 Office visit Cass BRAY 02/25/2015 Office visit Cass BRAY 02/05/2015 Nurse visit Cass BRAY 12/17/2014 Hospital Dinesh John Zhu MD 12/17/2014 Office visit Brannon Manuel DO 12/12/2014 Office visit Cass BRAY 10/29/2014 Office visit Cass BRAY 10/02/2014 Office visit Cass BRAY 09/20/2014 Office visit Brannon Manuel DO 09/05/2014 Office visit Cass BRAY 07/29/2014 Office visit Cass BRAY 07/18/2014 Office visit Brannon Manuel DO 07/03/2014 Office visit Rob Ruiz AGILE DEVELOPER 06/11/2014 Office visit Cass ARCINIEGAP 04/29/2014 Office visit Cass Arellano RAILROAD CONDUCTOR 04/29/2014 Office visit Brannon Manuel DO 04/05/2014 Office visit Harjinder Paiz PA-C 02/25/2014 Office visit Cass ARCINIEGAP 01/02/2014 Office visit Cass ARCINIEGAP 12/18/2013 Office visit Cass ARCINIEGAP 09/13/2013 Office visit Brannon Jackson DO 08/27/2013 Office visit Regina Mcnally AGILE DEVELOPER 08/17/2013 Office visit Ray Tripathi AGILE DEVELOPER 05/21/2013 Office visit Brannon Jackson DO 05/10/2013 Office visit Anirudh Conway MD 04/26/2013 Office visit Anirudh Conway MD 12/22/2012 Office visit Brannon Jackson DO 12/14/2012 [facility] Sandra Ca MD 12/12/2012 Office visit Brannon Jackson DO 12/12/2012 [facility] Sandra Ca MD 12/06/2012 Office visit Anirudh Conway MD 11/24/2012 Office visit Regina Mcnally APRN 10/12/2012 [facility] Anirudh Conway MD 10/10/2012 Office visit Brannon Jackson DO 09/18/2012 Office visit Anirudh Conway MD 09/01/2012 Office visit Brannon Jackson DO 08/21/2012 Office visit Brannon Jackson DO 08/01/2012 Office visit Brannon Jackson DO 07/11/2012 Office visit Regina Mcnally APRN 06/14/2012 Office visit Anirudh Conway MD 05/25/2012 Office visit Anirudh Conway MD 05/04/2012 Office visit Brannon Jackson DO 12/23/2011 Office visit Anirudh Conway MD 12/16/2011 Office visit Brannon Jackson DO 12/06/2011 Office visit Anirudh Conway MD 11/11/2011 Office visit Brannon Jackson DO 10/28/2011 Office visit Brannon Jackson DO 10/22/2011 [facility] Valery Cerna MD 10/21/2011 [facility] Valery Cerna MD 10/19/2011 Office visit Brannon Jackson DO 10/19/2011 [facility] Anderson Dawkins MD 10/07/2011 [...]
--- OUTSIDE RECORDS SUMMARY | 2018-10-25 07:48 | XMS REPORT ---
Author Author Ty Infante [facility] Address [address] [place], [place] [id number] Care Team Providers Care Sheriff'S Officer Name Role Phone Ty Infante PCP Brannon Jackson PreferredProvider Allergies and Adverse [...] 2 times per day for 7 days [place] Thyroid 120 mg oral tablet 12/14/2012 12/09/2013 [...] HC BMI BSA BMI Percentile O2 Sat(%) 05/24/2018 4:02:00 PM 144 mmHg 80 mmHg [...] 295 lbs 68 in 44.8541 kg/m 2.5338 12/18/2010 8:58:00 AM 142 mmHg 82 mmHg 68 bpm 20 rpm 97.4 F 285 lbs 11/17/2010 3:26:00 PM 154 mmHg 80 mmHg 82 bpm 18 rpm 98.1 F 288 lbs 68 in 43.7898 kg/m 2.5035 10/08/2010 3:30:00 PM 148 mmHg 82 mmHg 76 bpm 18 rpm 98 F 285 lbs 08/18/2010 8:28:00 AM 174 mmHg 100 mmHg 80 bpm 20 rpm 98.7 F 285 lbs 02/03/2010 3:32:00 PM 134 mmHg 76 mmHg 78 bpm 16 rpm 98 F 274 lbs 68 in 41.6611 kg/m 2.4419 12/02/2009 3:42:00 PM 150 mmHg 80 mmHg 76 bpm 22 rpm 97.6 F 271 lbs Social History Name Description Comments No Alcohol Use Tobacco Former smoker Alcohol Use - Occasional 1-2 drinks per month Grown Children x1,age 24 Children x2 one grown & one,age 16 at home Attended some college experimented with illicit drugs in past over 25 yrs ago [employer] application [employer] 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 in History of [...] AM Kenalog per 10Mg Im-[facility]#[address]-79(Man) Reviewed 12/23/2011 12:00 AM DRAIN/INJ JOINT/BURSA W/O US Reviewed 12/23/2011 12:00 AM Kenalog 40 Mg Im-N[facility]#7525-7570-57 Reviewed 11/19/2016 12:00 AM X-RAY EXAM OF HAND Reviewed 01/19/2017 12:00 AM COMPLETE CBC W/AUTO DIFF WBC Reviewed 01/19/2017 12:00 AM COMPREHEN METABOLIC PANEL Reviewed 01/19/2017 12:00 AM GLYCOSYLATED HEMOGLOBIN TEST Reviewed 05/25/2012 12:00 AM INJ TRIGGER POINT 1/2 MUSCL Reviewed 05/25/2012 12:00 AM Kenalog, Per 10 Mg [facility]#7766-5258-87 Reviewed 06/14/2012 12:00 AM DRAIN/INJ JOINT/BURSA W/O US Reviewed 06/14/2012 12:00 AM Kenalog, Per 10 Mg [facility]#1091-6100-71 Reviewed 05/09/2017 12:00 AM MAMMOGRAPHY SCREENING, DIGITAL Reviewed 07/11/2012 12:00 AM THER/PROPH/DIAG INJ SC/IM Reviewed 07/11/2012 12:00 AM Decadron 1 mg [facility]#[id number] (Manuel) Reviewed 07/11/2012 12:00 AM Depo-Medrol 80 mg [facility]#61086884985-Vbgzpkou Reviewed 08/21/2012 12:00 AM ASSAY CARBOXYHB QUANT Reviewed 09/01/2017 12:00 AM RADIOLOGIC EXAMINATION KNEE 1/2 VIEWS Reviewed 09/18/2012 12:00 AM DRAIN/INJ JOINT/BURSA W/O US Reviewed 09/18/2012 12:00 AM Kenalog, Per 10 Mg [facility]#1552-2357-44 Reviewed 10/25/2017 12:00 AM RADIOLOGIC EXAMINATION KNEE [...] Kenalog, Per 10 Mg [facility]#6664-3726-42 Reviewed 12/22/2012 12:00 AM TOTAL CORTISOL Reviewed 05/11/2018 12:00 AM CHEST X-RAY 2VW FRONTAL&LATL Reviewed 05/11/2018 12:00 AM Mammogram, screening, bilateral Reviewed 04/26/2013 12:00 AM DRAIN/INJ JOINT/BURSA W/O US Reviewed 04/26/2013 12:00 AM Kenalog, Per 10 Mg [facility]#3540-6417-13 Reviewed 05/10/2013 12:00 AM DRAIN/INJ JOINT/BURSA W/O US Reviewed 05/10/2013 12:00 AM Kenalog, Per 10 Mg [facility]#6541-3761-83 Reviewed 05/10/2013 12:00 AM DRAIN/INJ JOINT/BURSA W/O US Reviewed 05/10/2013 12:00 AM Kenalog, Per 10 Mg [facility]#3754-4006-38 Reviewed 05/28/2013 12:00 AM MAMMOGRAM SCREENING Reviewed [...] Kenalog, Per 10 Mg [facility]#8244-1363-28 Reviewed 04/05/2014 12:00 AM COMPLETE CBC W/AUTO [...] Bilateral Hip Feb 2011 4:20PM Bursitis Feb 6 2011 4:20PM Pain in joint; Knee Feb 6 2011 4:20PM Fibromyalgia Feb 2011 4:20PM Lumbago Feb 2011 4:20PM Cervicalgia Feb 2011 4:20PM Trochanteric Bursitis Feb 13 2011 9:26AM Insomnia Dec 16 2011 3:26PM [...] shoulder region-right Nov 24 2012 10:47AM Bursitis Feb 6 2012 3:44PM Diabetes Mellitus, Type II Dec 12 2012 2:22PM Hypoglycemia b 2012 2:22PM Chest Pain, Atypical Feb 12 2013 2:22PM Subacromial Bursitis Dec 06 2012 4:21PM [...] 3:20PM Pain in joint; shoulder region, Right b 2014 3:20PM Osteoarthritis, Left Hip b 2014 3:20PM Fatigue b 2014 3:20PM Diabetes Mellitus, Type II b 2014 12:09PM Dysuria b 2014 12:09PM Gastroesophageal Reflux Feb 2014 8:20AM Diabetes Mellitus, Type II b 2014 8:20AM Hyperlipidemia, mixed Dec 17 2014 8:20AM Hypertension b 2014 8:20AM Overactive bladder Dec 17 2014 [...] Extremities with Pain May 24 2018 4:03PM Payers Insurance Name Company Name Plan Name Plan Number Policy Number Policy Group Number Start Date [facility] Gpa [id number] Saturday, 2015 [employer] [place] [id number] Saturday, 2009 [employer] [place] [id number] Wednesday, 2009 History of Encounters Visit Date Visit Type Provider 05/24/2018 Office visit Ty Infante MD 05/11/2018 Office visit Brannon Jackson DO 03/28/2018 Office visit Brannon Jackson DO 12/02/2017 Office visit Brannon Jackson DO 11/11/2017 Office visit Brannon Jackson DO 11/09/2017 Office visit Harjinder Paiz PA-C 10/28/2017 Office visit Lakia Reina EXPORT CLERK 10/25/2017 Office visit Regina Mcnally EXPORT CLERK 10/05/2017 Office visit Regina Mcnally EXPORT CLERK 09/01/2017 Office visit Brannon Jackson DO 06/29/2017 Office visit Karyna Gilbert EXPORT CLERK 06/18/2017 Office visit Karyna Gilbert EXPORT CLERK 05/09/2017 Office visit Brannon Jackson DO 03/08/2017 Office visit Brannon Jackson DO 01/25/2017 Office visit Brannon Jackson DO 01/19/2017 Office visit Regina Mcnally EXPORT CLERK 01/04/2017 Procedures Reagan Lehman DO 12/24/2016 Office visit Brannon Jackson DO 12/23/2016 Surgery Reagan Lehman DO 12/14/2016 Office visit Reagan Lehman DO 11/25/2016 Office visit Brannon Jackson DO 11/19/2016 Office visit Sandra Milton EXPORT CLERK 11/02/2016 Office visit Lakia Reina EXPORT CLERK 09/09/2016 Office visit Brannon Jackson DO 05/18/2016 Office visit Brannon Jackson DO 05/05/2016 Office visit 05/05/2016 Office visit Brannon Jackson DO 02/05/2016 Office visit Brannon Jackson DO 12/09/2015 Voided Cass BRAY 10/13/2015 Office visit Brannon Simpsonte DO 09/18/2015 Nurse visit Cass BRAY 09/03/2015 Procedures Reagan Lehman DO 08/29/2015 Office visit Brannon Jackson DO 08/20/2015 Office visit Cass BRAY 08/01/2015 Office visit Cass BRAY 07/02/2015 Office visit Cass BRAY 06/04/2015 Office visit Cass BRAY 05/15/2015 Office visit Brannon Simpsonte DO 05/08/2015 Nurse visit Cass BRAY 04/28/2015 Office visit 04/28/2015 Office visit Brannon Tidwellhite DO 04/09/2015 Office visit Cass BRAY 04/01/2015 Procedures Dinesh Zhu MD 04/01/2015 Office visit Brannon Simpsonte DO 03/10/2015 Office visit Cass BRAY 02/25/2015 Office visit Cass BRAY 02/05/2015 Nurse visit Cass BRAY 12/17/2014 Hospital Dinesh Zhu MD 12/17/2014 Office visit Brannon Tidwellhite DO 12/12/2014 Office visit Cass BRAY 10/29/2014 Office visit Cass BRAY 10/02/2014 Office visit Cass BRAY 09/20/2014 Office visit Brannon Manuel DO 09/05/2014 Office visit Cass BRAY 07/29/2014 Office visit Cass BRAY 07/18/2014 Office visit Brannon Manuel DO 07/03/2014 Office visit Rob Ruiz EXPORT CLERK 06/11/2014 Office visit Cass BRAY 04/29/2014 Office visit Cass BRAY 04/29/2014 Office visit Brannon Manuel DO 04/05/2014 Office visit Harjinder Paiz PA-C 02/25/2014 Office visit Cass BRAY 01/02/2014 Office visit Cass BRAY 12/18/2013 Office visit Cass BRAY 09/13/2013 Office visit Brannon Jackson DO 08/27/2013 Office visit Regina Mcnally EXPORT CLERK 08/17/2013 Office visit Ray Tripathi EXPORT CLERK 05/21/2013 Office visit Brannon Jackson DO 05/10/2013 Office visit Anirudh Conway MD 04/26/2013 Office visit Anirudh Conway MD 12/22/2012 Office visit Brannon Jackson DO 12/14/2012 [facility] Sandra Ca MD 12/12/2012 Office visit Brannon Jackson DO 12/12/2012 [facility] Sandra Ca MD 12/06/2012 Office visit Anirudh Conway MD 11/24/2012 Office visit Regina Mcnally EXPORT CLERK 10/12/2012 [facility] Anirudh Conway MD 10/10/2012 Office visit Brannon Jackson DO 09/18/2012 Office visit Anirudh Conway MD 09/01/2012 Office visit Brannon Jackson DO 08/21/2012 Office visit Brannon Jackson DO 08/01/2012 Office visit Brannon Jackson DO 07/11/2012 Office visit Regina Mcnally EXPORT CLERK 06/14/2012 Office visit Anirudh Conway MD 05/25/2012 Office visit Anirudh Conway MD 05/04/2012 Office visit Brannon Jackson DO 12/23/2011 Office visit Anirudh Conway MD 12/16/2011 Office visit Brannon Jackson DO 12/06/2011 Office visit Anirudh Conway MD 11/11/2011 Office visit Brannon Manuel DO 10/28/2011 Office visit Brannon Manuel DO 10/22/2011 [facility] Valery Cerna MD 10/21/2011 [facility] Valery Cerna MD 10/19/2011 Office visit Brannon Jackson DO 10/19/2011 [facility] Anderson Dawkins MD 10/07/2011 Office visit Brannon Jackson DO 04/27/2011 Office visit Brannon Manuel DO 04/16/2011 Office visit Brannon Jackson DO 12/18/2010 Office visit Brannon Jackson DO 11/17/2010 Office visit Brannon Jackson DO 10/08/2010 Office visit Brannon Jackson DO 08/18/2010 Office visit Regina Mcnally APRN 02/03/2010 Office visit Brannon Jackson DO 12/02/2009 Office visit Brannon Jackson DO 06/27/2009 Office visit Brannon Jackson DO
--- OUTSIDE RECORDS SUMMARY | 2018-10-25 07:50 | XMS REPORT ---
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 in History of [...] Reviewed 12/13/2011 12:00 AM Kenalog per 10Mg Im-[facility]#[address]-11(Man) Reviewed 12/23/2011 12:00 AM DRAIN/INJ JOINT/BURSA W/O US Reviewed 12/23/2011 12:00 AM Kenalog 40 Mg Im-[facility]#0801-1821-45 Reviewed 11/19/2016 12:00 AM X-RAY EXAM OF HAND Reviewed 01/19/2017 12:00 AM COMPLETE CBC W/AUTO DIFF WBC Reviewed 01/19/2017 12:00 AM COMPREHEN METABOLIC PANEL Reviewed 01/19/2017 12:00 AM GLYCOSYLATED HEMOGLOBIN TEST Reviewed 05/25/2012 12:00 AM INJ TRIGGER POINT 1/2 MUSCL Reviewed 05/25/2012 12:00 AM Kenalog, Per 10 Mg [facility]#1968-3062-58 Reviewed 06/14/2012 12:00 AM DRAIN/INJ JOINT/BURSA W/O US Reviewed 06/14/2012 12:00 AM Kenalog, Per 10 Mg [facility]#3312-7198-81 Reviewed 05/09/2017 12:00 AM MAMMOGRAPHY SCREENING, DIGITAL Reviewed 07/11/2012 12:00 AM THER/PROPH/DIAG INJ SC/IM Reviewed 07/11/2012 12:00 AM Decadron 1 mg [facility]#[id number] (Manuel) Reviewed 07/11/2012 12:00 AM Depo-Medrol 80 mg [facility]#[id number]-Xeimovru Reviewed 08/21/2012 12:00 AM ASSAY CARBOXYHB QUANT Reviewed 09/01/2017 12:00 AM RADIOLOGIC EXAMINATION KNEE 1/2 VIEWS Reviewed 09/18/2012 12:00 AM DRAIN/INJ JOINT/BURSA W/O US Reviewed 09/18/2012 12:00 AM Kenalog, Per 10 Mg [facility]#6244-4563-97 Reviewed 10/25/2017 12:00 AM RADIOLOGIC EXAMINATION KNEE [...] Kenalog, Per 10 Mg [facility]#0906-2412-13 Reviewed 12/22/2012 12:00 AM TOTAL CORTISOL Reviewed 05/11/2018 12:00 AM CHEST X-RAY 2VW FRONTAL&LATL Reviewed 05/11/2018 12:00 AM Mammogram, screening, bilateral Reviewed 04/26/2013 12:00 AM DRAIN/INJ JOINT/BURSA W/O US Reviewed 04/26/2013 12:00 AM Kenalog, Per 10 Mg [facility]#8307-1846-32 Reviewed 05/10/2013 12:00 AM DRAIN/INJ JOINT/BURSA W/O US Reviewed 05/10/2013 12:00 AM Kenalog, Per 10 Mg [facility]#8760-2539-91 Reviewed 05/10/2013 12:00 AM DRAIN/INJ JOINT/BURSA W/O US Reviewed 05/10/2013 12:00 AM Kenalog, Per 10 Mg [facility]#9807-1150-16 Reviewed 05/28/2013 12:00 AM MAMMOGRAM SCREENING Reviewed [...] Kenalog, Per 10 Mg [facility]#7811-3770-47 Reviewed 04/05/2014 12:00 AM COMPLETE CBC W/AUTO [...] Number Policy Group Number Start Date [facility] Gpa [id number] Saturday, 2015 [employer] [place] [id number] Saturday, 2009 [employer] [place] [id number] Wednesday, 2009 History of Encounters Visit Date Visit Type Provider 05/24/2018 Office visit Ty Infante MD 05/11/2018 Office visit Brannon Jackson DO 03/28/2018 Office visit Brannon Jackson DO 12/02/2017 Office visit Brannon Jackson DO 11/11/2017 Office visit Brannon Jackson DO 11/09/2017 Office visit Harjinder Paiz PA-C 10/28/2017 Office visit Lakia Reina MANAGER WOUND 10/25/2017 Office visit Regina Mcnally MANAGER WOUND 10/05/2017 Office visit Regina Mcnally MANAGER WOUND 09/01/2017 Office visit Brannon Jackson DO 06/29/2017 Office visit Karyna Gilbert MANAGER WOUND 06/18/2017 Office visit Karyna Gilbert MANAGER WOUND 05/09/2017 Office visit Brannon Jackson DO 03/08/2017 Office visit Brannon Jackson DO 01/25/2017 Office visit Brannon Jackson DO 01/19/2017 Office visit Regina Mcnally MANAGER WOUND 01/04/2017 Procedures Reagan Lehman DO 12/24/2016 Office visit Brannon Jackson DO 12/23/2016 Surgery Reagan Lehman DO 12/14/2016 Office visit Reagan Lehman DO 11/25/2016 Office visit Brannon Jackson DO 11/19/2016 Office visit Sandra Milton MANAGER WOUND 11/02/2016 Office visit Lakia Reina MANAGER WOUND 09/09/2016 Office visit Brannon Jackson DO 05/18/2016 [...] Manuel DO 07/03/2014 Office visit Rob Ruiz MANAGER WOUND 06/11/2014 Office visit Cass BRAY 04/29/2014 Office visit Cass BRAY 04/29/2014 Office visit Brannon Manuel DO 04/05/2014 Office visit Harjinder Paiz PA-C 02/25/2014 Office visit Cass BRAY 01/02/2014 Office visit Cass BRAY 12/18/2013 Office visit Cass BRAY 09/13/2013 Office visit Brannon Jackson DO 08/27/2013 Office visit Regina Mcnally MANAGER WOUND 08/17/2013 Office visit Ray Tripathi MANAGER WOUND 05/21/2013 Office visit Brannon Jackson DO 05/10/2013 Office visit Anirudh Conway MD 04/26/2013 Office visit Anirudh Conway MD 12/22/2012 Office visit Brannon Jackson DO 12/14/2012 [facility] Sandra Ca MD 12/12/2012 Office visit Brannon Jackson DO 12/12/2012 [facility] Sandra Ca MD 12/06/2012 Office visit Anirudh Conway MD 11/24/2012 Office visit Regina Mcnally MANAGER WOUND 10/12/2012 [facility] Anirudh Conway MD 10/10/2012 Office visit Brannon Jackson DO 09/18/2012 Office visit Anirudh Conway MD 09/01/2012 Office visit Brannon Jackson DO 08/21/2012 Office visit Brannon Jackson DO 08/01/2012 Office visit Brannon Jackson DO 07/11/2012 Office visit Regina Mcnally MANAGER WOUND 06/14/2012 Office visit Anirudh Conway MD 05/25/2012 Office visit Anirudh Conway MD 05/04/2012 Office visit Brannon Jackson DO 12/23/2011 Office visit Anirudh Conway MD 12/16/2011 Office visit Brannon Jackson DO 12/06/2011 Office visit Anirudh Conway MD 11/11/2011 Office visit Brannon Manuel DO 10/28/2011 Office visit Brannon Manuel DO 10/22/2011 [facility] Valery Cerna MD [...]
--- OUTSIDE RECORDS SUMMARY | 2018-10-25 07:53 | XMS REPORT ---
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 Name Role Phone Ty Infante PCP Brannon [...] AM MICROALBUMIN UR RANDOM 05/11/2018 12:00 AM Ganglion cyst right hand 12/14/2016 [...] tablet 02/06/2018 TAKE 1 TABLET ONCE DAILY hydrocodone-acetaminophen 10-325 mg oral tablet 05/08/2018 06/07/2018 take 1 tablet by oral route every 6 hours for 30 days tolterodine 4 mg oral capsule,extended release [...] capsule,delayed release(DR/EC) 05/11/2018 TAKE 1 CAPSULE DAILY Name Start Date Expiration Date SIG [...] 2 times per day for 7 days [place] Thyroid 120 mg oral tablet 12/14/2012 12/09/2013 [...] 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 in History of [...] Reviewed 12/13/2011 12:00 AM Kenalog per 10Mg Im-[facility]#[address]-83(Man) Reviewed 12/23/2011 12:00 AM DRAIN/INJ JOINT/BURSA W/O US Reviewed 12/23/2011 12:00 AM Kenalog 40 Mg Im-[facility]#2434-9119-20 Reviewed 11/19/2016 12:00 AM X-RAY EXAM OF HAND Reviewed 01/19/2017 12:00 AM COMPLETE CBC W/AUTO DIFF WBC Reviewed 01/19/2017 12:00 AM COMPREHEN METABOLIC PANEL Reviewed 01/19/2017 12:00 AM GLYCOSYLATED HEMOGLOBIN TEST Reviewed 05/25/2012 12:00 AM INJ TRIGGER POINT 1/2 MUSCL Reviewed 05/25/2012 12:00 AM Kenalog, Per 10 Mg [facility]#1765-0176-76 Reviewed 06/14/2012 12:00 AM DRAIN/INJ JOINT/BURSA W/O US Reviewed 06/14/2012 12:00 AM Kenalog, Per 10 Mg [facility]#1780-2235-49 Reviewed 05/09/2017 12:00 AM MAMMOGRAPHY SCREENING, DIGITAL Reviewed 07/11/2012 12:00 AM THER/PROPH/DIAG INJ SC/IM Reviewed 07/11/2012 12:00 AM Decadron 1 mg [facility]#[id number] (Manuel) Reviewed 07/11/2012 12:00 AM Depo-Medrol 80 mg [facility]#00768019819-Eroqmpsw Reviewed 08/21/2012 12:00 AM ASSAY CARBOXYHB QUANT Reviewed 09/01/2017 12:00 AM RADIOLOGIC EXAMINATION KNEE 1/2 VIEWS Reviewed 09/18/2012 12:00 AM DRAIN/INJ JOINT/BURSA W/O US Reviewed 09/18/2012 12:00 AM Kenalog, Per 10 Mg [facility]#3345-5226-96 Reviewed 10/25/2017 12:00 AM RADIOLOGIC EXAMINATION KNEE [...] 12/06/2012 12:00 AM Kenalog, Per 10 Mg [facility]#8669-6671-99 Reviewed 12/22/2012 12:00 AM TOTAL CORTISOL Reviewed 05/11/2018 12:00 AM CHEST X-RAY 2VW FRONTAL&LATL Reviewed 05/11/2018 12:00 AM Mammogram, screening, bilateral Reviewed 04/26/2013 12:00 AM DRAIN/INJ JOINT/BURSA W/O US Reviewed 04/26/2013 12:00 AM Kenalog, Per 10 Mg [facility]#9492-1111-75 Reviewed 05/10/2013 12:00 AM DRAIN/INJ JOINT/BURSA W/O US Reviewed 05/10/2013 12:00 AM Kenalog, Per 10 Mg [facility]#6442-3582-91 Reviewed 05/10/2013 12:00 AM DRAIN/INJ JOINT/BURSA W/O US Reviewed 05/10/2013 12:00 AM Kenalog, Per 10 Mg [facility]#1252-2242-62 Reviewed 05/28/2013 12:00 AM MAMMOGRAM SCREENING Reviewed [...] 03/05/2014 12:00 AM Kenalog, Per 10 Mg [facility]#9006-6237-34 Reviewed 04/05/2014 12:00 AM COMPLETE CBC W/AUTO [...] 4:20PM Cervicalgia Feb 2011 4:20PM Trochanteric Bursitis b 2011 9:26AM Insomnia b 2011 3:26PM Dermatitis b 2011 3:26PM Otitis [...] Atypical Dec 12 2012 2:22PM Subacromial Bursitis Feb 2012 4:21PM Diabetes Mellitus, Type II Dec [...] Mellitus, Type II b 2014 12:09PM Dysuria Feb 2014 12:09PM Gastroesophageal [...] Policy Number Policy Group Number Start Date [facility] [id number] Saturday, 2015 [employer] [place] [id number] Saturday, 2009 [employer] [place] [id number] Wednesday, 2009 History of Encounters Visit Date Visit Type Provider 05/24/2018 Office visit Ty Infante MD 05/11/2018 Office visit Brannon Jackson DO 03/28/2018 Office visit Brannon Jackson DO 12/02/2017 Office visit Brannon Jackson DO 11/11/2017 Office visit Brannon Jackson DO 11/09/2017 Office visit Harjinder Paiz PA-C 10/28/2017 Office visit Lakia Reina SURVEY INTERVIEWER 10/25/2017 Office visit Regina Mcnally SURVEY INTERVIEWER 10/05/2017 Office visit Regina Mcnally SURVEY INTERVIEWER 09/01/2017 Office visit Brannon Jackson DO 06/29/2017 Office visit Karyna Gilbert SURVEY INTERVIEWER 06/18/2017 Office visit Karyna Gilbert SURVEY INTERVIEWER 05/09/2017 Office visit Brannon Jackson DO 03/08/2017 Office visit Brannon Jackson DO 01/25/2017 Office visit Brannon Jackson DO 01/19/2017 Office visit Regina Mcnally SURVEY INTERVIEWER 01/04/2017 Procedures Reagan Lehman DO 12/24/2016 Office visit Brannon Jackson DO 12/23/2016 Surgery Reagan Lehman DO 12/14/2016 Office visit Reagan Lehman DO 11/25/2016 Office visit Brannon Jackson DO 11/19/2016 Office visit Sandra Keanedez SURVEY INTERVIEWER 11/02/2016 Office visit Lakia Reina SURVEY INTERVIEWER 09/09/2016 Office visit Brannon Jackson DO 05/18/2016 Office visit Brannon Simpsonte DO 05/05/2016 Office visit 05/05/2016 Office visit Brannon Jackson DO 02/05/2016 Office visit Brannon Jackson DO 12/09/2015 Voided Cass BRAY 10/13/2015 Office visit Brannon Jackson DO 09/18/2015 Nurse visit Cass BRAY 09/03/2015 Procedures Reagan Guzmanlois DO 08/29/2015 Office visit Brannon Jackson DO [...] John Zhu MD 12/17/2014 Office visit Brannon Simpsonte DO 12/12/2014 Office visit Cass BRAY 10/29/2014 Office visit Cass BRAY 10/02/2014 Office visit Cass BRAY 09/20/2014 Office visit Brannon Manuel DO 09/05/2014 Office visit Cass BRAY 07/29/2014 Office visit Cass BRAY 07/18/2014 Office visit Brannon Manuel DO 07/03/2014 Office visit Rob Ruiz SURVEY INTERVIEWER 06/11/2014 Office visit Cass Arellano PRODUCT APPLICATIONS ENGINEER 04/29/2014 Office visit Cass Arellano PRODUCT APPLICATIONS ENGINEER 04/29/2014 Office visit Brannon Manuel DO 04/05/2014 Office visit Harjinder Paiz PA-C 02/25/2014 Office visit Cass Arellano PRODUCT APPLICATIONS ENGINEER 01/02/2014 Office visit Cass Arellano PRODUCT APPLICATIONS ENGINEER 12/18/2013 Office visit Cass Arellano PRODUCT APPLICATIONS ENGINEER 09/13/2013 Office visit Brannon Jackson DO 08/27/2013 Office visit Regina Mcnally SURVEY INTERVIEWER 08/17/2013 Office visit Ray Tripathi SURVEY INTERVIEWER 05/21/2013 Office visit Brannon Jackson DO 05/10/2013 Office visit Anirduh Conway MD 04/26/2013 Office visit Anirudh Conway MD 12/22/2012 Office visit Brannon Jackson DO 12/14/2012 [facility] Sandra Ca MD 12/12/2012 Office visit Brannon Jackson DO 12/12/2012 [facility] Sandra Ca MD 12/06/2012 Office visit Anirudh Conway MD 11/24/2012 Office visit Regina Mcnally SURVEY INTERVIEWER 10/12/2012 [facility] Anirudh Conway MD 10/10/2012 Office visit Brannon Jackson DO 09/18/2012 Office visit Anirudh Conway MD 09/01/2012 Office visit Brannon Jackson DO 08/21/2012 Office visit Brannon Jackson DO 08/01/2012 Office visit Brannon Jackson DO 07/11/2012 Office visit Regina Mcnally SURVEY INTERVIEWER 06/14/2012 Office visit Anirudh Conway MD 05/25/2012 Office visit Anirudh Conway MD 05/04/2012 Office visit Brannon Jackson DO 12/23/2011 Office visit Anirudh Conway MD 12/16/2011 Office visit Brannon Jackson DO 12/06/2011 Office visit Anirudh Conway MD 11/11/2011 Office visit Brannon Jackson DO 10/28/2011 Office visit Brannon Jackson DO 10/22/2011 [facility] Valery Cerna MD 10/21/2011 [facility] Valery Cerna MD 10/19/2011 Office visit Brannon Jackson DO 10/19/2011 [facility] Anderson Dawkins MD 10/07/2011 Office visit [...]
--- OUTSIDE RECORDS SUMMARY | 2018-10-25 07:56 | XMS REPORT ---
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 Name Role Phone Ty Infante PCP Brannon [...] AM MICROALBUMIN UR RANDOM 05/11/2018 12:00 AM Mammogram, screening, bilateral 05/11/2018 12:00 AM Ganglion cyst right hand [...] 2 times per day for 7 days Mason Thyroid 120 mg oral tablet 12/14/2012 12/09/2013 [...] Reviewed 12/13/2011 12:00 AM Kenalog per 10Mg [facility]#[address]-99(Man) Reviewed 12/23/2011 12:00 AM DRAIN/INJ JOINT/BURSA W/O US Reviewed 12/23/2011 12:00 AM Kenalog 40 Mg [facility]#1537-5991-26 Reviewed 11/19/2016 12:00 AM X-RAY EXAM OF HAND Reviewed 01/19/2017 12:00 AM COMPLETE CBC W/AUTO DIFF WBC Reviewed 01/19/2017 12:00 AM COMPREHEN METABOLIC PANEL Reviewed 01/19/2017 12:00 AM GLYCOSYLATED HEMOGLOBIN TEST Reviewed 05/25/2012 12:00 AM INJ TRIGGER POINT 1/2 MUSCL Reviewed 05/25/2012 12:00 AM Kenalog, Per 10 Mg [facility]#3660-0583-52 Reviewed 06/14/2012 12:00 AM DRAIN/INJ JOINT/BURSA W/O US Reviewed 06/14/2012 12:00 AM Kenalog, Per 10 Mg [facility]#5441-8980-85 Reviewed 05/09/2017 12:00 AM MAMMOGRAPHY SCREENING, DIGITAL Reviewed 07/11/2012 12:00 AM THER/PROPH/DIAG INJ SC/IM Reviewed 07/11/2012 12:00 AM Decadron 1 mg [facility]#[id number] (Manuel) Reviewed 07/11/2012 12:00 AM Depo-Medrol 80 mg [facility]#[id number]-Xnqzmoai Reviewed 08/21/2012 12:00 AM ASSAY CARBOXYHB QUANT Reviewed 09/01/2017 12:00 AM RADIOLOGIC EXAMINATION KNEE 1/2 VIEWS Reviewed 09/18/2012 12:00 AM DRAIN/INJ JOINT/BURSA W/O US Reviewed 09/18/2012 12:00 AM Kenalog, Per 10 Mg [facility]#9320-3101-80 Reviewed 10/25/2017 12:00 AM RADIOLOGIC EXAMINATION KNEE [...] 12/06/2012 12:00 AM Kenalog, Per 10 Mg [facility]#8822-3956-46 Reviewed 12/22/2012 12:00 AM TOTAL CORTISOL Reviewed 05/11/2018 12:00 AM CHEST X-RAY 2VW FRONTAL&LATL Reviewed 04/26/2013 12:00 AM DRAIN/INJ JOINT/BURSA W/O US Reviewed 04/26/2013 12:00 AM Kenalog, Per 10 Mg [facility]#4141-2360-68 Reviewed 05/10/2013 12:00 AM DRAIN/INJ JOINT/BURSA W/O US Reviewed 05/10/2013 12:00 AM Kenalog, Per 10 Mg [facility]#9527-3222-89 Reviewed 05/10/2013 12:00 AM DRAIN/INJ JOINT/BURSA W/O US Reviewed 05/10/2013 12:00 AM Kenalog, Per 10 Mg [facility]#9008-6697-37 Reviewed 05/28/2013 12:00 AM MAMMOGRAM SCREENING Reviewed [...] 03/05/2014 12:00 AM Kenalog, Per 10 Mg [facility]#6268-8001-88 Reviewed 04/05/2014 12:00 AM COMPLETE CBC W/AUTO [...] 2009 3:44PM Diabetes Mellitus, Type II, Uncontrolled b 2009 3:44PM Hypertension Diabetes Mellitus, Type II [...] in joint; Knee b 2011 4:20PM Fibromyalgia b 2011 4:20PM Lumbago Feb 2011 4:20PM Cervicalgia [...] Atypical Dec 12 2012 2:22PM Subacromial Bursitis b 2012 4:21PM Diabetes Mellitus, Type II Dec [...] 2015 4:09PM Severe Chronic Osteoarthritis, Left Hip Sep 2 2015 4:09PM Left Anterior Hip pain, chronic [...] Policy Number Policy Group Number Start Date [facility] [id number] Saturday, 2015 [employer] [place] [id number] Saturday, 2009 [employer] [place] [id number] Wednesday, 2009 History of Encounters Visit Date Visit Type Provider 05/24/2018 Office visit Ty Infante MD 05/11/2018 Office visit Brannon Jackson DO 03/28/2018 Office visit Brannon Jackson DO 12/02/2017 Office visit Brannon Jackson DO 11/11/2017 Office visit Brannon Jackson DO 11/09/2017 Office visit Harjinder Paiz PA-C 10/28/2017 Office visit Lakia Reina MATERIAL MAN 10/25/2017 Office visit Regina Mcnally MATERIAL MAN 10/05/2017 Office visit Regina Mcnally APRN 09/01/2017 Office visit Brannon Jackson DO 06/29/2017 Office visit Karyna Glibert MATERIAL MAN 06/18/2017 Office visit Karyna Gilbert MATERIAL MAN 05/09/2017 Office visit Brannon Jackson DO 03/08/2017 Office visit Brannon Jackson DO 01/25/2017 Office visit Brannon Jackson DO 01/19/2017 Office visit Regina Mcnally MATERIAL MAN 01/04/2017 Procedures Reagan Lehman DO 12/24/2016 Office visit Brannon Jackson DO 12/23/2016 Surgery Reagan Lehman DO 12/14/2016 Office visit Reagan Guzmanuman DO 11/25/2016 Office visit Brannon Jackson DO 11/19/2016 Office visit Sandra Yoan MATERIAL MAN 11/02/2016 Office visit Lakia Reina MATERIAL MAN 09/09/2016 Office visit Brannon Jackson DO 05/18/2016 Office visit Brannon Simpsonte DO 05/05/2016 Office visit 05/05/2016 Office visit Brannon Jackson DO 02/05/2016 Office visit Brannon Jackson DO 12/09/2015 Voided Cass BRAY 10/13/2015 Office visit Brannon Jackson DO 09/18/2015 Nurse visit Cass BRAY 09/03/2015 Procedures Reagan Lehman DO 08/29/2015 Office visit Barnnon Simpsonte DO 08/20/2015 Office visit Cass BRAY [...] Manuel DO 07/03/2014 Office visit Rob Ruiz APRN 06/11/2014 Office visit Cass Arellano CHILD PSYCHOMETRIST 04/29/2014 Office visit Cass Arellano CHILD PSYCHOMETRIST 04/29/2014 Office visit Brannon Manuel DO 04/05/2014 Office visit Harjinder Paiz PA-C 02/25/2014 Office visit Cass Arellano CHILD PSYCHOMETRIST 01/02/2014 Office visit Cass Arellano CHILD PSYCHOMETRIST 12/18/2013 Office visit Cass Arellano CHILD PSYCHOMETRIST 09/13/2013 Office visit Brannon Jackson DO 08/27/2013 Office visit Regina Mcnally MATERIAL MAN 08/17/2013 Office visit Ray Tripathi MATERIAL MAN 05/21/2013 Office visit Brannon Jackson DO 05/10/2013 Office visit Anirudh Conway MD 04/26/2013 Office visit Anirudh Conway MD 12/22/2012 Office visit Brannon Jackson DO 12/14/2012 [facility] Sandra Ca MD 12/12/2012 Office visit Brannon Jackson DO 12/12/2012 [facility] Sandra Ca MD 12/06/2012 Office visit Anirudh Conway MD 11/24/2012 Office visit Regina Mcnally MATERIAL MAN 10/12/2012 [facility] Anirudh Conway MD 10/10/2012 Office visit Brannon Jackson DO 09/18/2012 Office visit Anirudh Conway MD 09/01/2012 Office visit Brannon Jackson DO 08/21/2012 Office visit Brannon Jackson DO 08/01/2012 Office visit Brannon Jackson DO 07/11/2012 Office visit Regina Mcnally MATERIAL MAN 06/14/2012 Office visit Anirudh Conway MD 05/25/2012 Office visit Anirudh Conway MD 05/04/2012 Office visit Brannon Jackson DO 12/23/2011 Office visit Anirudh Conway MD 12/16/2011 Office visit Brannon Jackson DO 12/06/2011 Office visit Anirudh Conway MD 11/11/2011 Office visit Brannon Jackson DO 10/28/2011 Office visit Brannon Jackson DO 10/22/2011 [facility] Valery Cerna MD 10/21/2011 [facility] Valery Cerna MD 10/19/2011 Office visit Brannon Jackson DO 10/19/2011 [facility] Anderson Dawkins MD 10/07/2011 Office visit [...]
--- OUTSIDE RECORDS SUMMARY | 2018-10-25 07:57 | XMS REPORT ---
Author Author Cass Arellano [facility] Address [address] [place], [place] [id number] Care Team Providers Care Crm Campaign Manager Name Role Phone Cass Arellano PCP Allergies and Adverse Reactions Name Reaction Notes Promethazine vomiting Zofran vomiting Plan of Treatment Planned Activity Comments Planned Date Planned Time Plan/Goal MRI PELVIS W/O DYE 08/01/2015 12:00 AM C-REACTIVE PROTEIN 05/04/2012 12:00 AM ASSAY OF BLOOD/URIC ACID 05/04/2012 12:00 AM RHEUMATOID FACTOR QUANT 05/04/2012 12:00 AM ANTINUCLEAR ANTIBODIES (GALINA) 05/04/2012 12:00 AM RBC SED RATE AUTOMATED 05/04/2012 12:00 AM FIBRINOGEN ACTIVITY 05/04/2012 12:00 AM VITAMIN D 25 HYDROXY 05/04/2012 12:00 AM VITAMIN B-12 05/04/2012 12:00 AM ASSAY OF VITAMIN B-6 05/04/2012 12:00 AM GLYCOSYLATED HEMOGLOBIN TEST 05/04/2012 12:00 AM US EXAM ABDOM COMPLETE 05/04/2012 12:00 AM COMPREHEN METABOLIC PANEL 02/06/2013 12:00 AM LIPID PANEL 02/06/2013 12:00 AM GLYCOSYLATED HEMOGLOBIN TEST 02/06/2013 12:00 AM MICROALBUMIN SEMIQUANT 02/06/2013 12:00 AM GLYCOSYLATED HEMOGLOBIN TEST 09/20/2014 12:00 AM MICROALBUMIN QUANTITATIVE 09/20/2014 12:00 AM GLYCOSYLATED HEMOGLOBIN TEST 04/18/2015 12:00 AM Medications Active Name Start Date Estimated Completion Date SIG Comments Multivitamin, Hair, Skin,and Nails one tablet daily amitriptyline 10 mg oral tablet 08/29/2014 11/22/2015 take 1 tablet by oral route once a day (at bedtime) for 90 days mail order Detrol LA 4 mg oral capsule,extended release 24hr 11/11/2014 11/06/2015 take 1 capsule (4 mg) by oral route once daily for 90 days tolterodine 4 mg oral capsule,extended release 24hr 04/02/2015 03/27/2016 take 1 capsule (4 mg) by oral route once daily for 90 days amlodipine 5 mg oral tablet 04/02/2015 03/27/2016 take 1 tablet (5 mg) by oral route once daily for 90 days diclofenac sodium 75 mg oral tablet,delayed release (DR/EC) 04/02/20152015 take 1 tablet (75 mg) by oral route 2 times a day for 90 days estradiol 0.5 mg oral tablet 04/02/2015 03/27/2016 TAKE ONE TABLET BY MOUTH EVERY DAY gabapentin 300 mg oral capsule 04/02/2015 03/27/2016 take 1 capsule by oral route 2 times a day for 90 days metformin 1,000 mg oral tablet 04/02/2015 03/27/2016 take 1 tablet by oral route 2 times a day for 90 days simvastatin 20 mg oral tablet 04/02/2015 03/27/2016 take 1 tablet (20 mg) by oral route once daily in the evening omeprazole 40 mg oral capsule,delayed release(DR/EC) 04/02/2015 03/27/2016 take 1 capsule (40 mg) by oral route once daily before a meal for 90 days omeprazole 40 mg oral capsule,delayed release(DR/EC) 04/06/2015 TAKE ONE CAPSULE BY MOUTH EVERY DAY losartan-hydrochlorothiazide 100-25 mg oral tablet 04/07/2015 04/01/2016 take 1 tablet by oral route once daily losartan-hydrochlorothiazide 100-25 mg oral tablet 06/19/2015 TAKE 1 TABLET DAILY cyclobenzaprine 10 mg oral tablet 07/02/2015 10/30/2015 take 1 tablet by oral route every 8 hours as needed for 30 days muscle spasm Accu-Chek Ana Cristina miscellaneous strip 07/14/2015 test glucose 2 times per day Dx: 250.00 Prozac 20 mg oral capsule 08/28/2015 08/22/2016 take 1 capsule (20 mg) by oral route once daily for 90 days cane miscellaneous device 09/01/2015 use as directed single point mckeon alprazolam 0.5 mg oral tablet 09/01/2015 10/01/2015 TAKE ONE TABLET BY MOUTH TWICE DAILY NEEDED hydrocodone-acetaminophen 10-325 mg oral tablet 09/18/2015 10/18/2015 take 1 tablet by oral route every [...] 2 times per day for 7 days [place] Thyroid 120 mg oral tablet 12/14/2012 12/09/2013 [...] route every 72 hours for 30 days amantadine HCl 100 mg oral tablet 11/28/2014 12/03/2014 take 1 tablet (100 mg) by oral route 2 times per day for 5 days Bactrim DS 800-160 mg oral tablet 08/01/2015 08/08/2015 take 1 tablet by oral route 2 times per day for 7 days Discontinued Name Start Date Discontinued Date SIG [...] once daily for 102 days Taking Omeprazole Problem List Description Status Onset Depressive Disorder Active Diabetes Mellitus, Type II Active Hyperlipidemia, mixed Active Hypertension Active Obesity Active Fibromyalgia Active 05/26/2013 Overactive bladder Active 12/18/2014 Osteoarthritis, Left Hip Active 03/10/2015 Left hip pain Active 03/10/2015 Lumbago Active 06/04/2015 Vital Signs Date Time BP-Sys(mm[Hg] BP-Debo(mm[Hg]) HR(bpm) RR(rpm) Temp WT HT HC BMI BSA BMI Percentile O2 Sat(%) 09/03/2015 2:57:00 PM 138 mmHg 86 mmHg [...] rpm 98 F 292 lbs 68 in 44.40 kg/m2 2.52 m2 04/27/2011 3:39:00 PM 140 mmHg 72 mmHg 74 bpm 18 rpm 96.9 F 295 lbs 68 in 44.8541 kg/m 2.5338 m 04/16/2011 10:20:00 AM 178 mmHg 80 mmHg 76 bpm 22 rpm 98.4 F 295 lbs 68 in 44.85 kg/m2 2.53 m2 12/18/2010 8:58:00 AM 142 mmHg 82 mmHg 68 bpm 20 rpm 97.4 F 285 lbs 11/17/2010 3:26:00 PM 154 mmHg 80 mmHg 82 bpm 18 rpm 98.1 F 288 lbs 68 in 43.79 kg/m2 2.50 m2 10/08/2010 3:30:00 PM 148 mmHg 82 mmHg [...] past over 25 yrs ago stencil application Su Ind. 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 in History of Procedures Date Ordered Description Order Status 08/29/2015 12:00 AM X-RAY EXAM OF HAND Reviewed 10/07/2011 12:00 AM C-REACTIVE PROTEIN Reviewed [...] 12:00 AM CHEST X-RAY 2VW FRONTAL&LATL Reviewed 12/13/2011 12:00 AM DRAIN/INJ JOINT/BURSA W/O US Reviewed 12/13/2011 12:00 AM Kenalog per 10Mg Im-Ndc#[address]-65(Man) Reviewed 12/23/2011 12:00 AM DRAIN/INJ JOINT/BURSA W/O US Reviewed 12/23/2011 12:00 AM Kenalog 40 Mg Im-Nyc#6247-9747-83 Reviewed 05/25/2012 12:00 AM INJ TRIGGER POINT 1/2 MUSCL Reviewed 05/25/2012 12:00 AM Kenalog, Per 10 Mg ND#6649-1957-08 Reviewed 06/14/2012 12:00 AM DRAIN/INJ JOINT/BURSA W/O US Reviewed 06/14/2012 12:00 AM Kenalog, Per 10 Mg ND#2033-4562-10 Reviewed 07/11/2012 12:00 AM THER/PROPH/DIAG INJ SC/IM Reviewed 07/11/2012 12:00 AM Decadron 1 mg ND#[id number] (Manuel) Reviewed 07/11/2012 12:00 AM Depo-Medrol 80 mg ND#[id number] Reviewed 08/21/2012 12:00 AM ASSAY CARBOXYHB QUANT Reviewed 09/18/2012 12:00 AM DRAIN/INJ JOINT/BURSA W/O US Reviewed 09/18/2012 12:00 AM Kenalog, Per 10 Mg [facility]#8203-6671-61 Reviewed 10/13/2012 12:00 AM COMPREHEN METABOLIC PANEL Reviewed 10/13/2012 12:00 AM LIPID PANEL Reviewed 10/13/2012 12:00 AM GLYCOSYLATED HEMOGLOBIN TEST Reviewed 10/13/2012 12:00 AM MICROALBUMIN SEMIQUANT Reviewed 04/15/2010 12:00 AM MAMMOGRAM SCREENING Reviewed 12/06/2012 12:00 AM DRAIN/INJ JOINT/BURSA W/O US Reviewed 12/06/2012 12:00 AM Kenalog, Per 10 Mg [facility]#1746-5847-89 Reviewed 12/22/2012 12:00 AM TOTAL CORTISOL Reviewed 04/26/2013 12:00 AM DRAIN/INJ JOINT/BURSA W/O US Reviewed 04/26/2013 12:00 AM Kenalog, Per 10 Mg [facility]#9150-8427-01 Reviewed 05/10/2013 12:00 AM DRAIN/INJ JOINT/BURSA W/O US Reviewed 05/10/2013 12:00 AM Kenalog, Per 10 Mg [facility]#8005-0953-24 Reviewed 05/10/2013 12:00 AM DRAIN/INJ JOINT/BURSA W/O US Reviewed 05/10/2013 12:00 AM Kenalog, Per 10 Mg [facility]#5150-5113-04 Reviewed 05/28/2013 12:00 AM MAMMOGRAM SCREENING Reviewed [...] 12:00 AM COMPLETE CBC W/AUTO DIFF WBC Returned 08/27/2013 12:00 AM COMPREHEN METABOLIC PANEL Returned 08/27/2013 12:00 AM ASSAY OF LIPASE Returned 08/27/2013 12:00 AM X-RAY EXAM OF ABDOMEN Returned 12/18/2013 12:00 AM Shoulder Min 2Views - MOB Reviewed 01/02/2014 12:00 AM COMPREHEN METABOLIC PANEL Returned 01/02/2014 12:00 AM COMPLETE CBC W/AUTO DIFF WBC Returned 03/05/2014 12:00 AM DRAIN/INJ JOINT/BURSA W/O US Reviewed 03/05/2014 12:00 AM Lele Escudero 10 Mg [facility]#4017-6640-85 Reviewed 04/05/2014 12:00 AM COMPLETE CBC W/AUTO DIFF WBC Returned 04/05/2014 12:00 AM C-REACTIVE PROTEIN HS Returned 04/05/2014 12:00 AM RBC SED RATE AUTOMATED Returned 10/08/2010 12:00 AM URINALYSIS NONAUTO W/SCOPE Reviewed [...] 12:00 AM COMPLETE CBC W/AUTO DIFF WBC Returned 02/25/2015 12:00 AM RBC SED RATE AUTOMATED Returned 02/25/2015 12:00 AM C-REACTIVE PROTEIN Returned 02/25/2015 12:00 AM COMPREHEN METABOLIC PANEL Returned 02/25/2015 12:00 AM X-RAY EXAM OF HIPS Returned 03/11/2015 12:00 AM EXTREMITY STUDY Returned 04/16/2011 12:00 AM X-RAY EXAM OF HIP Reviewed 04/16/2011 12:00 AM URINALYSIS AUTO W/O SCOPE Reviewed 04/22/2011 12:00 AM URINALYSIS AUTO W/O SCOPE Reviewed 05/05/2011 12:00 AM MAMMOGRAM SCREENING Reviewed 04/28/2015 12:00 AM MAMMOGRAM SCREENING Reviewed 05/08/2015 12:00 AM OFFICE/OUTPATIENT VISIT EST Returned 05/23/2015 12:00 AM COMPLETE CBC AUTOMATED Reviewed 05/23/2015 12:00 AM GLYCOSYLATED HEMOGLOBIN TEST Reviewed 05/23/2015 12:00 AM ASSAY OF IRON Reviewed 05/23/2015 12:00 AM LIPID PANEL Reviewed 05/23/2015 12:00 AM CHEST X-RAY 2VW FRONTAL&LATL Reviewed 05/23/2015 12:00 AM MICROALBUMIN QUANTITATIVE Reviewed 03/10/2015 12:00 AM FIBRIN DEGRADATION QUANT Returned Results Summary Data and Description Results 12/02/2009 11:11 PM Cholest Cry Stone Ql IR 0.0 %Mammogram -Women over 40 Declined Pap Smear Declined Hgb A1c Fr Bld 0.0 %Dialated Eye Exam- Diabetic Referred Foot Exam-Diabetic Done 10/08/2010 4:08 PM COLOR YELLOW APPEARANCE CLOUDY SPEC GRAV >=1.030 pH 5.5 PROTEIN NEGATIVE GLUCOSE 250 KETONE NEGATIVE BILIRUBIN NEGATIVE BLOOD TRACE- INTACT NITRITE NEGATIVE LEUK SCREEN NEGATIVE CASTS/LPF NEGATIVE CRYSTALS NEGATIVE MUCOUS THRDS NEGATIVE BACTERIA NEGATIVE EPITH CELLS FEW SQUAMOUS TRICHOMONAS NEGATIVE YEAST NEGATIVE 10/09/2010 6:55 AM TRIGLYCERIDES 132.0 mg/dLCHOLESTEROL 205.0 mg/dLHDL 43.0 mg /dLLDL (CALC) 136.0 mg/dLTSH 4.050 uIU/mLGLUCOSE 220.0 mg/dLSODIUM 136.0 mmol/ LPOTASSIUM 4.0 mmol/LCHLORIDE 102.0 mmol/LCO2 24.0 mmol/LBUN 19.0 mg/ dLCREATININE 0.80 mg/dLSGOT/AST 19.0 IU/LSGPT/ALT 24.0 IU/LALK PHOS 78.0 IU/ LTOTAL PROTEIN 7.30 g/dLALBUMIN 4.10 g/dLTOTAL BILI 0.50 mg/dLCALCIUM 9.60 mg/ dLeGFR >60 mL/min/1.73 m2 10/13/2011 8:09 AM URIC ACID 5.6 mg/Cynthia REACTIVE PROTEIN 17.0 mg/LSEDRATE 24.0 mm/hrFIBRINOGEN 276.0 mg/dLVITAMIN B12 591.0 pg/mL 12/07/2011 5:05 PM CPK 229 IU/LMAGNESIUM 2.10 mg/dLTSH 0.480 uIU/mL 10/16/2012 6:25 AM CREAT UR 104.30 mg/dLMICROALBUMIN UR 5.0 ug/mLALB:CREAT RATIO 5 TRIGLYCERIDES 132.0 mg/dLCHOLESTEROL 168.0 mg/dLHDL 42.0 mg/dLLDL (CALC ) 100.0 mg/dLGLUCOSE 202.0 mg/dLSODIUM 137.0 mmol/LPOTASSIUM 4.0 mmol/LCHLORIDE 104.0 mmol/LCO2 25.0 mmol/LBUN 20.0 mg/dLCREATININE 0.80 mg/dLSGOT/AST 11.0 IU/ LSGPT/ALT 19.0 IU/LALK PHOS 72.0 IU/LTOTAL PROTEIN 7.60 g/dLALBUMIN 4.30 g/ dLTOTAL BILI 0.60 mg/dLCALCIUM 9.90 mg/dLeGFR 60 05/21/2013 4:48 PM WBC 10.3 RBC 4.26 HGB 12.70 g/dLHCT 37.50 %MCV 88.0 fLMCH 29.80 pgMCHC 33.90 g/dLRDW CV 13.20 %MPV 10.80 fLPLT 270 %NEUT 57.20 %%LYMP 34.30 %%MONO 6.70 %%EOS 1.50 %%BASO 0.30 %#NEUT 5.91 #LYMP 3.54 #MONO 0.69 #EOS 0.16 #BASO 0.03 IRON TOTAL 39.0 ug/dLEst Avg Glucose 168.6 mg/dLTSH 2.850 uIU/ mLVITAMIN B12 434.0 pg/mLFOLATE 16.70 ng/mL 08/27/2013 9:55 AM WBC 8.6 RBC 4.58 HGB 13.90 g/dLHCT 39.40 %MCV 86.0 fLMCH 30.30 pgMCHC 35.30 g/dLRDW CV 12.80 %MPV 10.30 fLPLT 298 %NEUT 64.50 %%LYMP 28.20 %%MONO 5.60 %%EOS 1.50 %%BASO 0.20 %#NEUT 5.52 #LYMP 2.42 #MONO 0.48 #EOS 0.13 #BASO 0.02 GLUCOSE 154.0 mg/dLSODIUM 140.0 mmol/LPOTASSIUM 3.80 mmol/ LCHLORIDE 104.0 mmol/LCO2 26.0 mmol/LBUN 10.0 mg/dLCREATININE 0.80 mg/dLSGOT/ AST 16.0 IU/LSGPT/ALT 22.0 IU/LALK PHOS 65.0 IU/LTOTAL PROTEIN 7.40 g/dLALBUMIN 4.20 g/dLTOTAL BILI 0.90 mg/dLCALCIUM 9.50 mg/dLeGFR >60 mL/min/1.73 [id number] 18.0 U/L 01/02/2014 10:02 AM GLUCOSE 134.0 mg/dLSODIUM 139.0 mmol/LPOTASSIUM 4.30 mmol/ LCHLORIDE 101.0 mmol/LCO2 25.0 mmol/LBUN 20.0 mg/dLCREATININE 1.0 mg/dLSGOT/AST 15.0 IU/LSGPT/ALT 19.0 IU/LALK PHOS 80.0 IU/LTOTAL PROTEIN 7.20 g/dLALBUMIN 4.20 g/dLTOTAL BILI 0.90 mg/dLCALCIUM 9.70 mg/dLeGFR 60 WBC 10.5 RBC 4.69 HGB 14.0 g/dLHCT 40.80 %MCV 87.0 fLMCH 29.90 pgMCHC 34.30 g/dLRDW CV 12.70 %MPV 10.60 fLPLT 274 %NEUT 56.50 %%LYMP 34.90 %%MONO 5.80 %%EOS 2.40 %%BASO 0.40 %# NEUT 5.92 #LYMP 3.65 #MONO 0.61 #EOS 0.25 #BASO 0.04 04/05/2014 6:00 PM WBC 7.3 RBC 4.19 HGB 12.50 g/dLHCT 37.10 %MCV 89.0 fLMCH 29.80 pgMCHC 33.70 g/dLRDW CV 12.70 %MPV 10.40 fLPLT 261 %NEUT 43.40 %%LYMP 48.0 %%MONO 5.90 %%EOS 2.30 %%BASO 0.40 %#NEUT 3.17 #LYMP 3.51 #MONO 0.43 #EOS 0.17 #BASO 0.03 C REACTIVE PROTEIN 6.0 mg/LSEDRATE 11.0 mm/hr 05/03/2014 8:50 AM MICROALBUMIN UR 7.0 ug/mLTRIGLYCERIDES 88.0 mg/dLCHOLESTEROL 190.0 mg/dLHDL 54.0 mg/dLLDL (CALC) 118.0 mg/dLWBC 6.2 RBC 4.63 HGB 14.0 g/ dLHCT 40.90 %MCV 88.0 fLMCH 30.20 pgMCHC 34.20 g/dLRDW CV 12.70 %MPV 10.70 fLPLT 286 IRON TOTAL 117.0 ug/dLEst Avg Glucose 174.3 mg/dL 12/17/2014 12:00 AM Treatment/Therapy intra-articular injection of left hip Response to treatment @ 80% improved x 2 mos followed by gradual return 12/17/2014 8:00 AM TRIGLYCERIDES 87.0 mg/dLCHOLESTEROL 155.0 mg/dLHDL 40.0 mg/ dLLDL (CALC) 98.0 mg/dLGLUCOSE 140.0 mg/dLSODIUM 138.0 mmol/LPOTASSIUM 3.90 mmol /LCHLORIDE 104.0 mmol/LCO2 23.0 mmol/LBUN 13.0 mg/dLCREATININE 0.80 mg/dLSGOT/ AST 14.0 IU/LSGPT/ALT 18.0 IU/LALK PHOS 64.0 IU/LTOTAL PROTEIN 7.50 g/dLALBUMIN 4.30 g/dLTOTAL BILI 0.80 mg/dLCALCIUM 9.50 mg/dLeGFR >60 mL/min/1.73 m2Est Avg Glucose 134.1 mg/dLCOLOR YELLOW APPEARANCE CLEAR SPEC GRAV 1.015 pH 6.0 PROTEIN NEGATIVE GLUCOSE NEGATIVE KETONE NEGATIVE BILIRUBIN NEGATIVE BLOOD NEGATIVE NITRITE NEGATIVE LEUK SCREEN NEGATIVE CASTS/LPF NEGATIVE CRYSTALS NEGATIVE MUCOUS THRDS NEGATIVE BACTERIA FEW EPITH CELLS FEW SQUAMOUS TRICHOMONAS NEGATIVE YEAST NEGATIVE MICROALBUMIN UR 7.0 ug/mL 02/25/2015 12:40 PM WBC 7.8 RBC 4.08 HGB 12.20 g/dLHCT 36.80 %MCV 90.0 fLMCH 29.90 pgMCHC 33.20 g/dLRDW CV 12.90 %MPV 10.30 fLPLT 278 %NEUT 49.70 %%LYMP 41.90 %%MONO 5.70 %%EOS 2.40 %%BASO 0.30 %#NEUT 3.89 #LYMP 3.28 #MONO 0.45 #EOS 0.19 #BASO 0.02 SEDRATE 8.0 mm/hrC REACTIVE PROTEIN <0.5 MG/DLGLUCOSE 164.0 mg/ dLSODIUM 142.0 mmol/LPOTASSIUM 4.10 mmol/LCHLORIDE 106.0 mmol/LCO2 25.0 mmol/ LBUN 23.0 mg/dLCREATININE 0.90 mg/dLSGOT/AST 18.0 IU/LSGPT/ALT 19.0 IU/LALK PHOS 61.0 IU/LTOTAL PROTEIN 7.10 g/dLALBUMIN 3.40 g/dLTOTAL BILI 0.70 mg/ dLCALCIUM 9.50 mg/dLeGFR >60 mL/min/1.73 m2 03/10/2015 5:06 PM D-DIMER QUANT 0.64 05/24/2015 9:44 AM WBC 7.6 RBC 4.69 HGB 14.20 g/dLHCT 42.0 %MCV 90.0 fLMCH 30.30 pgMCHC 33.80 g/dLRDW CV 12.70 %MPV 10.30 fLPLT 261 %NEUT 52.0 %%LYMP 36.10 %%MONO 6.20 %%EOS 5.20 %%BASO 0.50 %#NEUT 3.96 #LYMP 2.75 #MONO 0.47 #EOS 0.40 #BASO 0.04 TRIGLYCERIDES 106.0 mg/dLCHOLESTEROL 189.0 mg/dLHDL 48.0 mg/ dLLDL (CALC) 120.0 mg/dLIRON TOTAL 86.0 ug/dLMICROALBUMIN UR 12.0 ug/mLEstim. Avg Glu (eAG) 146 mg/dL History Of Immunizations Not available. History of [...] 2010 9:00AM Osteoarthritis,Shoulder Dec 18 2010 9:00AM Pain in joint; Left Hip Apr 16 [...] Trochanteric Bursitis Feb 13 2011 9:26AM Insomnia Fe2011 3:26PM Dermatitis b 2011 3:26PM Otitis Externa, [...] region-right Nov 24 2012 10:47AM Bursitis Feb 2012 3:44PM Diabetes Mellitus, Type II Dec [...] 2014 3:20PM Diabetes Mellitus, Type II Feb 2014 12:09PM Dysuria Feb 2014 12:09PM Gastroesophageal Reflux Feb 2014 8:20AM Diabetes Mellitus, Type II Feb 2014 8:20AM Hyperlipidemia, mixed b 2014 8:20AM Hypertension Feb 2014 8:20AM Overactive bladder b 2014 8:20AM [...] Chronic pain syndrome Sep 18 2015 4:30PM Payers Insurance Name Company Name Plan Name Plan Number Policy Number Policy Group Number Start Date [facility] [id number] Wednesday, 2009 [employer] [place] [id number] Saturday, 2009 History of Encounters Visit Date Visit Type Provider 09/18/2015 Nurse visit Cass BRAY 09/03/2015 Procedures Reagan Lehman DO 08/29/2015 Office visit Brannon Jackson DO 08/20/2015 Office visit Cass BRAY 08/01/2015 Office visit Cass BRAY 07/02/2015 Office visit Cass BRAY 06/04/2015 Office visit Cass BRAY 05/15/2015 Office visit Brannon Jackson DO 05/08/2015 Nurse visit Cass BRAY 04/28/2015 Office visit Brannon Jackson DO 04/09/2015 Office visit Cass BRAY 04/01/2015 Procedures Dinesh Zhu MD 04/01/2015 Office visit Brannon Jackson DO 03/10/2015 Office visit Cass BRAY 02/25/2015 Office visit Cass BRAY 02/05/2015 Nurse visit Cass BRAY 12/17/2014 Hospital Dinesh Zhu MD 12/17/2014 Office visit Brannon Jackson DO 12/12/2014 Office visit Cass BRAY 10/29/2014 Office visit Cass BRAY 10/02/2014 Office visit Cass BRAY 09/20/2014 Office visit Brannon Jackson DO 09/05/2014 Office visit Cass BRAY 07/29/2014 Office visit Cass BRAY 07/18/2014 Office visit Brannon Jackson DO 07/03/2014 Office visit Rob Ruiz APRN 06/11/2014 Office visit Cass ARCINIEGAP 04/29/2014 Office visit Cass Arellano TECHNICAL INTERN 04/29/2014 Office visit Brannon Manuel DO 04/05/2014 Office visit Harjinder Paiz PA-C 02/25/2014 Office visit Cass Arellano TECHNICAL INTERN 01/02/2014 Office visit Cass Arellano TECHNICAL INTERN 12/18/2013 Office visit Cass Tonya Arellano TECHNICAL INTERN 09/13/2013 Office visit Brannon Jackson DO 08/27/2013 Office visit Regina Mcnally WHARF LABORER 08/17/2013 Office visit Ray rTipathi WHARF LABORER 05/21/2013 Office visit Brannon Jackson DO 05/10/2013 Office visit Anirudh Conway MD 04/26/2013 Office visit Anirudh Conway MD 12/22/2012 Office visit Brannon Jackson DO 12/14/2012 [facility] Sandra Ca MD 12/12/2012 Office visit Brannon Jackson DO 12/12/2012 [facility] Sandra Ca MD 12/06/2012 Office visit Anirudh Conway MD 11/24/2012 Office visit Regina Mcnally WHARF LABORER 10/12/2012 [facility] Anirudh Conway MD 10/10/2012 Office visit Brannon Jackson DO 09/18/2012 Office visit Anirudh Conway MD 09/01/2012 Office visit Brannon Jackson DO 08/21/2012 Office visit Brannon Jackson DO 08/01/2012 Office visit Brannon Jackson DO 07/11/2012 Office visit Regina Mcnally WHARF LABORER 06/14/2012 Office visit Anirudh Conway MD 05/25/2012 [...]
--- OUTSIDE RECORDS SUMMARY | 2018-10-25 07:59 | XMS REPORT ---
Author Author Brannon Jackson [facility] Address [address] [place], [place] [id number] Care Team Providers Care Gaming Dealer Name Role Phone Brannon Jackson PCP Unavailable Allergies and Adverse Reactions Name Reaction Notes [...] Multivitamin, Hair, Skin,and Nails one tablet daily Accu-Chek Ana Cristina miscellaneous strip 07/14/2015 test glucose 2 times per day Dx: 250.00 cane miscellaneous device 09/01/2015 use as directed single point mckeon aspirin 325 mg oral tablet take 1 tablet (325 mg) by oral route once daily alprazolam 0.25 mg oral tablet 05/18/2016 06/17/2016 take 1 tablet (0.25 mg) by oral route 2 times per day as needed hydrocodone-acetaminophen 10-325 mg oral tablet 05/18/2016 06/17/2016 take 1 tablet by oral route every 6 hours for 30 days amitriptyline 10 mg oral tablet 05/18/2016 05/13/2017 take 1 tablet by oral route once a day (at bedtime) for 90 days amlodipine 5 mg oral tablet 05/18/2016 05/13/2017 take 1 tablet (5 mg) by oral route once daily for 90 days cyclobenzaprine 10 mg oral tablet 05/18/2016 05/13/2017 take 1 tablet by oral route every 8 hours as needed for 90 days muscle spasm diclofenac sodium 75 mg oral tablet,delayed release (DR/EC) 05/18/20162016 take 1 tablet (75 mg) by oral route 2 times a day for 90 days estradiol 0.5 mg oral tablet 05/18/2016 05/13/2017 TAKE ONE TABLET BY MOUTH EVERY DAY gabapentin 300 mg oral capsule 05/18/2016 05/13/2017 take 1 capsule by oral route 2 times a day for 90 days losartan-hydrochlorothiazide 100-25 mg oral tablet 05/18/2016 05/13/2017 TAKE 1 TABLET DAILY for 90 days metformin 1,000 mg oral tablet 05/18/2016 05/13/2017 take 1 tablet by oral route 2 times a day for 90 days omeprazole 40 mg oral capsule,delayed release(DR/EC) 05/18/2016 05/13/2017 TAKE ONE CAPSULE BY MOUTH EVERY DAY for 90 days Prozac 20 mg oral capsule 05/18/2016 05/13/2017 take 1 capsule by oral route 2 times a day for 90 days simvastatin 20 mg oral tablet 05/18/2016 05/13/2017 take 1 tablet (20 mg) by oral route once daily in the evening tolterodine 4 mg oral capsule,extended release 24hr 05/18/2016 05/13/2017 take 1 capsule (4 mg) by oral [...] 2 times per day for 7 days Pearson Thyroid 120 mg oral tablet 12/14/2012 12/09/2013 [...] daily before a meal for 90 days losartan-hydrochlorothiazide 100-25 mg oral tablet 04/07/2015 04/01/2016 take 1 tablet by oral route once daily Bactrim DS 800-160 mg oral tablet 08/01/2015 [...] once daily for 102 days Taking Omeprazole tolterodine 4 mg oral capsule,extended release 24hr 02/05/2016 05/18/2016 take 1 capsule (4 mg) by oral route once daily for 90 days nystatin 100,000 unit/gram topical cream 05/05/2016 05/18/2016 apply to the affected area(s) by topical route 2 times per day fluconazole 100 mg oral tablet 05/05/2016 05/18/2016 take 1 tablet by oral route daily Problem List Description Status Onset Depressive Disorder Active Diabetes Mellitus, Type II Active Hyperlipidemia, mixed Active Hypertension Active Obesity Active Fibromyalgia Active 05/26/2013 Overactive bladder Active 12/18/2014 Osteoarthritis, Left Hip Active 03/10/2015 Left hip pain Active 03/10/2015 Lumbago Active 06/04/2015 Vital Signs Date Time BP-Sys(mm[Hg] BP-Debo(mm[Hg]) HR(bpm) RR(rpm) Temp WT HT HC BMI BSA BMI Percentile O2 Sat(%) 05/18/2016 3:56:00 PM 138 mmHg 84 mmHg [...] Reviewed 12/13/2011 12:00 AM Kenalog per 10Mg Im-[facility]#[address]-14(Man) Reviewed 12/23/2011 12:00 AM DRAIN/INJ JOINT/BURSA W/O US Reviewed 12/23/2011 12:00 AM Kenalog 40 Mg Im-[facility]#4581-3907-66 Reviewed 05/25/2012 12:00 AM INJ TRIGGER POINT 1/2 MUSCL Reviewed 05/25/2012 12:00 AM Kenalog, Per 10 Mg [facility]#6324-9110-86 Reviewed 06/14/2012 12:00 AM DRAIN/INJ JOINT/BURSA W/O US Reviewed 06/14/2012 12:00 AM Kenalog, Per 10 Mg [facility]#5572-8386-14 Reviewed 07/11/2012 12:00 AM THER/PROPH/DIAG INJ SC/IM Reviewed 07/11/2012 12:00 AM Decadron 1 mg [facility]#[id number] (Manuel) Reviewed 07/11/2012 12:00 AM Depo-Medrol 80 mg [facility]#[id number]-Fokjnuoo Reviewed 08/21/2012 12:00 AM ASSAY CARBOXYHB QUANT Reviewed 09/18/2012 12:00 AM DRAIN/INJ JOINT/BURSA W/O US Reviewed 09/18/2012 12:00 AM Kenalog, Per 10 Mg [facility]#7441-2756-68 Reviewed 10/13/2012 12:00 AM COMPREHEN METABOLIC PANEL Reviewed 10/13/2012 12:00 AM LIPID PANEL Reviewed 10/13/2012 12:00 AM GLYCOSYLATED HEMOGLOBIN TEST Reviewed 10/13/2012 12:00 AM MICROALBUMIN SEMIQUANT Reviewed 04/15/2010 12:00 AM MAMMOGRAM SCREENING Reviewed 12/06/2012 12:00 AM DRAIN/INJ JOINT/BURSA W/O US Reviewed 12/06/2012 12:00 AM Kenalog, Per 10 Mg [facility]#2068-2054-56 Reviewed 12/22/2012 12:00 AM TOTAL CORTISOL Reviewed 04/26/2013 12:00 AM DRAIN/INJ JOINT/BURSA W/O US Reviewed 04/26/2013 12:00 AM Kenalog, Per 10 Mg [facility]#0932-6532-82 Reviewed 05/10/2013 12:00 AM DRAIN/INJ JOINT/BURSA W/O US Reviewed 05/10/2013 12:00 AM Kenalog, Per 10 Mg [facility]#8094-7529-14 Reviewed 05/10/2013 12:00 AM DRAIN/INJ JOINT/BURSA W/O US Reviewed 05/10/2013 12:00 AM Kenalog, Per 10 Mg [facility]#8868-7198-70 Reviewed 05/28/2013 12:00 AM MAMMOGRAM SCREENING Reviewed [...] 03/05/2014 12:00 AM Kenalog, Per 10 Mg [facility]#0468-9972-06 Reviewed 04/05/2014 12:00 AM COMPLETE CBC W/AUTO [...] 43.0 mg /dLLDL (CALC) 136.0 mg/dLTSH 4.050 uIU/mLGLYCOHEMOGLOBIN A1C 8.70 %GLUCOSE 220.0 mg/dLSODIUM 136.0 mmol/LPOTASSIUM 4.0 mmol/LCHLORIDE 102.0 mmol/LCO2 24.0 mmol/LBUN 19.0 mg/dLCREATININE 0.80 mg/dLSGOT/AST 19.0 IU/LSGPT/ALT 24.0 IU/ LALK PHOS 78.0 IU/LTOTAL PROTEIN 7.30 g/dLALBUMIN 4.10 g/dLTOTAL BILI 0.50 mg/ dLCALCIUM 9.60 mg/dLeGFR >60 mL/min/1.73 m2 10/13/2011 8:09 AM URIC ACID 5.6 mg/Cynthia REACTIVE PROTEIN 17.0 mg/LSEDRATE 24.0 mm/hrFIBRINOGEN 276.0 mg/dLGLYCOHEMOGLOBIN A1C 7.90 %VITAMIN B12 591.0 pg/ mL 12/07/2011 5:05 PM CPK 229 IU/LMAGNESIUM 2.10 [...] dLTOTAL BILI 0.60 mg/dLCALCIUM 9.90 mg/dLeGFR 60 GLYCOHEMOGLOBIN A1C 7.20 % 05/21/2013 4:48 PM WBC 10.3 RBC 4.26 HGB 12.70 g/dLHCT 37.50 %MCV 88.0 fLMCH 29.80 pgMCHC 33.90 g/dLRDW CV 13.20 %MPV 10.80 fLPLT 270 %NEUT 57.20 %%LYMP 34.30 %%MONO 6.70 %%EOS 1.50 %%BASO 0.30 %#NEUT 5.91 #LYMP 3.54 #MONO 0.69 #EOS 0.16 #BASO 0.03 IRON TOTAL 39.0 ug/dLHGB A1C 7.50 %Est Avg Glucose 168.6 mg/ dLTSH 2.850 uIU/mLVITAMIN B12 434.0 pg/mLFOLATE 16.70 ng/mL 08/27/2013 9:55 [...] BILI 0.90 mg/dLCALCIUM 9.50 mg/dLeGFR >60 mL/min/1.73 [id number] 18.0 U/L 01/02/2014 10:02 AM GLUCOSE 134.0 [...] %MPV 10.70 fLPLT 286 IRON TOTAL 117.0 ug/dLHGB A1C 7.70 %Est Avg Glucose 174.3 mg/dL [...] BILI 0.80 mg/dLCALCIUM 9.50 mg/dLeGFR >60 mL/min/1.73 m2HGB A1C 6.30 %Est Avg Glucose 134.1 mg/dLCOLOR [...] 4.69 HGB 14.20 g/dLHCT 42.0 %MCV 90.0 [facility] 30.30 [facility] 33.80 g/dLRDW CV 12.70 %MPV 10.30 fLPLT 261 %NEUT 52.0 %%LYMP 36.10 %%MONO 6.20 %%EOS 5.20 %%BASO 0.50 %#NEUT 3.96 #LYMP 2.75 #MONO 0.47 #EOS 0.40 #BASO 0.04 TRIGLYCERIDES 106.0 mg/dLCHOLESTEROL 189.0 mg/dLHDL 48.0 mg/ dLLDL (CALC) 120.0 mg/dLIRON TOTAL 86.0 ug/dLMICROALBUMIN UR 12.0 ug/ mLHemoglobin A1c 6.70 %Estim. Avg Glu (eAG) 146 mg/dL 11/14/2015 6:40 AM Hemoglobin A1c 6.80 % 05/05/2016 10:20 AM HGB A1C 8.10 %Est Avg Glucose 185.8 mg/dLMICROALBUMIN UR 14.0 ug/mLTRIGLYCERIDES 146.0 mg/dLCHOLESTEROL 185.0 mg/dLHDL 43.0 mg/dLLDL ( CALC) 113.0 mg/dLVITAMIN B12 442.0 pg/mLGLUCOSE 145.0 mg/dLSODIUM 138.0 mmol/ LPOTASSIUM 4.30 mmol/LCHLORIDE 101.0 mmol/LCO2 24.0 mmol/LBUN 17.0 mg/ dLCREATININE 0.80 mg/dLSGOT/AST 18.0 IU/LSGPT/ALT 29.0 IU/LALK PHOS 67.0 IU/ LTOTAL PROTEIN 7.20 g/dLALBUMIN 4.20 g/dLTOTAL BILI 0.70 mg/dLCALCIUM 9.60 mg/ dLeGFR >60 mL/min/1.73m History Of Immunizations Not available. History of [...] 9:00AM Hypertension Dec 18 2010 9:00AM Osteoarthritis,Shoulder Feb 2010 9:00AM Pain in joint; Left Hip [...] joint; Knee Feb 2011 11:24AM Fibromyalgia Feb 2011 11:24AM Lumbago Feb 2011 11:24AM Cervicalgia Feb 2011 11:24AM Osteoarthritis of knee Feb 2011 1:04PM Diabetes Mellitus, Type II May [...] 3:57PM Depressive Disorder May 18 2016 3:57PM Payers Insurance Name Company Name Plan Name Plan Number Policy Number Policy Group Number Start Date [facility] [id number] Saturday, 2015 [employer] [place] [id number] Saturday, 2009 [employer] [place] [id number] Wednesday, 2009 History of Encounters Visit Date Visit Type Provider 05/18/2016 Office visit Brannon Jackson DO 05/05/2016 [...] visit Cass BRAY 07/29/2014 Office visit Cass ARCINIEGAP 07/18/2014 Office visit Brannon Manuel DO 07/03/2014 Office visit Rob Downingran API PRODUCT MANAGER 06/11/2014 Office visit Cass Arellano INFORMATION CODER 04/29/2014 Office visit Cass Arellano INFORMATION CODER 04/29/2014 Office visit Brannon Manuel DO 04/05/2014 Office visit Harjinder Paiz PA-C 02/25/2014 Office visit Cass Arellano INFORMATION CODER 01/02/2014 Office visit Cass Arellano INFORMATION CODER 12/18/2013 Office visit Cass Arellano INFORMATION CODER 09/13/2013 Office visit Brannon Manuel DO 08/27/2013 Office visit Reigna Mcnally API PRODUCT MANAGER 08/17/2013 Office visit Ray Tripathi API PRODUCT MANAGER 05/21/2013 Office visit Brannon Jackson DO 05/10/2013 Office visit Anirudh Conway MD 04/26/2013 Office visit Anirudh Conway MD 12/22/2012 Office visit Brannon Jackson DO 12/14/2012 [facility] Sandra Ca MD 12/12/2012 Office visit Brannon Jackson DO 12/12/2012 [facility] Sandra Ca MD 12/06/2012 Office visit Anirudh Conway MD 11/24/2012 Office visit Regina Mcnally API PRODUCT MANAGER 10/12/2012 [facility] Anirudh Conway MD 10/10/2012 Office visit Brannon Jackson DO 09/18/2012 Office visit Anirudh Conway MD 09/01/2012 Office visit Brannon Jackson DO 08/21/2012 Office visit Brannon Jackson DO 08/01/2012 Office visit Brannon Jackson DO 07/11/2012 Office visit Regina Mcnally API PRODUCT MANAGER 06/14/2012 Office visit Anirudh Conway MD 05/25/2012 Office visit Anirudh Conway MD 05/04/2012 Office visit Brannon Jackson DO 12/23/2011 Office visit Anirudh Conway MD 12/16/2011 Office visit Brannon Jackson DO 12/06/2011 Office visit Anirudh Conway MD 11/11/2011 Office visit Brannon Jackson DO 10/28/2011 Office visit Brannon Jackson DO 10/22/2011 [facility] Valery Cerna MD 10/21/2011 [facility] Valery Cerna MD 10/19/2011 Office visit Brannon Jackson DO 10/19/2011 [facility] Anderson Dawkins MD 10/07/2011 Office [...]
[2018-10-25] MEDS ORDERED: FAMOTIDINE 20MG/2ML IV (PEPCID) IV ONE (08:00)
[2018-10-25] MEDS ORDERED: proPOfol 200 MG/20 ML (DIPRIVAN) VIAL IV ONE (08:02)
[2018-10-25] MEDS ORDERED: ROCURONIUM 10 MG/ML 5 ML SYRINGE IV ONE (08:02)
[2018-10-25] MEDS ORDERED: fentaNYL INJECTION 100 MCG/2 ML AMP ONE (08:02)
[2018-10-25] MEDS ORDERED: GLYCOPYRROLATE 0.2 MG/ML (ROBINUL) 2 ML VIAL ONE (08:02)
[2018-10-25] MEDS ORDERED: SEVOFLURANE (ULTANE) 15 ML INHAL SOLN ONE ×2 (08:02→10:19)
[2018-10-25] MEDS ORDERED: NEOSTIGMINE 1 MG/ML 5 ML SYRINGE ONE (08:02)
[2018-10-25] MEDS ORDERED: MIDAZOLAM 2 MG/2 ML (VERSED) VIAL ONE (08:02)
[2018-10-25] MEDS ORDERED: LIDOCAINE PF 2% 5 ML (XYLOCAINE) VIAL ONE (08:02)
--- OUTSIDE RECORDS SUMMARY | 2018-10-25 08:02 | XMS REPORT ---
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 Name Role Phone Brannon Jackson PCP Brannon [...] 2 times per day for 7 days Bazine Thyroid 120 mg oral tablet 12/14/2012 12/09/2013 [...] HC BMI BSA BMI Percentile O2 Sat(%) 05/11/2018 2:02:00 PM 130 mmHg 78 mmHg [...] Reviewed 12/13/2011 12:00 AM Kenalog per 10Mg Im-[facility]#[address]-91(Man) Reviewed 12/23/2011 12:00 AM DRAIN/INJ JOINT/BURSA W/O US Reviewed 12/23/2011 12:00 AM Kenalog 40 Mg Im-[facility]#5262-0568-72 Reviewed 11/19/2016 12:00 AM X-RAY EXAM OF HAND Reviewed 01/19/2017 12:00 AM COMPLETE CBC W/AUTO DIFF WBC Reviewed 01/19/2017 12:00 AM COMPREHEN METABOLIC PANEL Reviewed 01/19/2017 12:00 AM GLYCOSYLATED HEMOGLOBIN TEST Reviewed 05/25/2012 12:00 AM INJ TRIGGER POINT 1/2 MUSCL Reviewed 05/25/2012 12:00 AM Kenalog, Per 10 Mg [facility]#8015-1049-09 Reviewed 06/14/2012 12:00 AM DRAIN/INJ JOINT/BURSA W/O US Reviewed 06/14/2012 12:00 AM Kenalog, Per 10 Mg [facility]#7706-5849-29 Reviewed 05/09/2017 12:00 AM MAMMOGRAPHY SCREENING, DIGITAL Reviewed 07/11/2012 12:00 AM THER/PROPH/DIAG INJ SC/IM Reviewed 07/11/2012 12:00 AM Decadron 1 mg [facility]#[id number] (Manuel) Reviewed 07/11/2012 12:00 AM Depo-Medrol 80 mg [facility]#[id number]-Xldysorm Reviewed 08/21/2012 12:00 AM ASSAY CARBOXYHB QUANT Reviewed 09/01/2017 12:00 AM RADIOLOGIC EXAMINATION KNEE 1/2 VIEWS Reviewed 09/18/2012 12:00 AM DRAIN/INJ JOINT/BURSA W/O US Reviewed 09/18/2012 12:00 AM Kenalog, Per 10 Mg [facility]#8249-8418-88 Reviewed 10/25/2017 12:00 AM RADIOLOGIC EXAMINATION KNEE [...] 12/06/2012 12:00 AM Kenalog, Per 10 Mg [facility]#7927-7139-06 Reviewed 12/22/2012 12:00 AM TOTAL CORTISOL Reviewed 05/11/2018 12:00 AM CHEST X-RAY 2VW FRONTAL&LATL Reviewed 04/26/2013 12:00 AM DRAIN/INJ JOINT/BURSA W/O US Reviewed 04/26/2013 12:00 AM Kenalog, Per 10 Mg [facility]#5894-2973-73 Reviewed 05/10/2013 12:00 AM DRAIN/INJ JOINT/BURSA W/O US Reviewed 05/10/2013 12:00 AM Kenalog, Per 10 Mg [facility]#7288-7461-69 Reviewed 05/10/2013 12:00 AM DRAIN/INJ JOINT/BURSA W/O US Reviewed 05/10/2013 12:00 AM Kenalog, Per 10 Mg [facility]#6434-2669-17 Reviewed 05/28/2013 12:00 AM MAMMOGRAM SCREENING Reviewed [...] 03/05/2014 12:00 AM Kenalog, Per 10 Mg [facility]#1200-57[address]-44 Reviewed 04/05/2014 12:00 AM COMPLETE CBC W/AUTO [...] Right b 2014 3:20PM Osteoarthritis, Left Hip Feb 2014 3:20PM Fatigue b 2014 3:20PM Diabetes Mellitus, Type II Feb [...] 2:04PM Dust exposure May 11 2018 2:04PM Payers Insurance Name Company Name Plan Name Plan Number Policy Number Policy Group Number Start Date [facility] Gpa [id number] Saturday, 2015 [employer] [place] [id number] Saturday, 2009 [employer] [place] [id number] Wednesday, 2009 History of Encounters Visit Date Visit Type Provider 05/11/2018 Office visit Brannon Jackson DO 03/28/2018 Office visit Brannon Jackson DO 12/02/2017 Office visit Brannon Jackson DO 11/11/2017 Office visit Brannon Jackson DO 11/09/2017 Office visit Harjinder Paiz PA-C 10/28/2017 Office visit Lakia Reina CERTIFIED PARALEGAL 10/25/2017 Office visit Regina Mcnally CERTIFIED PARALEGAL 10/05/2017 Office visit Regina Mcnally CERTIFIED PARALEGAL 09/01/2017 Office visit Brannon Jackson DO 06/29/2017 Office visit Karyna Gilbert CERTIFIED PARALEGAL 06/18/2017 Office visit Karyna Gilbert CERTIFIED PARALEGAL 05/09/2017 Office visit Brannon Jackson DO 03/08/2017 Office visit Brannon Jackson DO 01/25/2017 Office visit Brannon Jackson DO 01/19/2017 Office visit Regina Mcnally CERTIFIED PARALEGAL 01/04/2017 Procedures Reagan Lehman DO 12/24/2016 Office visit Brannon Jackson DO 12/23/2016 Surgery Reagan Lehman DO 12/14/2016 Office visit Reagan Lehman DO 11/25/2016 Office visit Brannon Jackson DO 11/19/2016 Office visit Sandra Milton CERTIFIED PARALEGAL 11/02/2016 Office visit Lakia Reina CERTIFIED PARALEGAL 09/09/2016 Office visit Brannon Jackson DO 05/18/2016 [...] 04/28/2015 Office visit 04/28/2015 Office visit Brannon Tidwellburt BALTAZAR 04/09/2015 Office visit Cass BRAY 04/01/2015 Procedures Dinesh Zhu MD 04/01/2015 Office visit Brannon Simpsonte DO 03/10/2015 Office visit Cass BRAY 02/25/2015 Office visit Cass BRAY 02/05/2015 Nurse visit Cass BRAY 12/17/2014 Hospital Dinesh Zhu MD 12/17/2014 Office visit Brannon Simpsonte [...] Jackson DO 08/27/2013 Office visit Regina Mcnally CERTIFIED PARALEGAL 08/17/2013 Office visit Ray KirbyMonse Tripathi CERTIFIED PARALEGAL 05/21/2013 Office visit Brannon Jackson DO 05/10/2013 Office visit Anirudh Conway MD 04/26/2013 Office visit Anirudh Conway MD 12/22/2012 Office visit Brannon Jackson DO 12/14/2012 [facility] Sandra Ca MD 12/12/2012 Office visit Brannon Jackson DO 12/12/2012 [facility] Sandra Ca MD 12/06/2012 Office visit Anirudh Conway MD 11/24/2012 Office visit Regina Mcnally CERTIFIED PARALEGAL 10/12/2012 [facility] Anirudh Conway MD 10/10/2012 Office visit Brannon Jackson DO 09/18/2012 Office visit Anirudh Conway MD 09/01/2012 Office visit Brannon Jackson DO 08/21/2012 Office visit Brannon Jackson DO 08/01/2012 Office visit Brannon Jackson DO 07/11/2012 Office visit Regina Mcnally CERTIFIED PARALEGAL 06/14/2012 Office visit Anirudh Conway MD 05/25/2012 Office visit Anirudh Conway MD 05/04/2012 Office visit Brannon Jackson DO 12/23/2011 Office visit Anirudh Conway MD 12/16/2011 Office visit Brannon Jackson DO 12/06/2011 Office visit Anirudh Conway MD 11/11/2011 Office visit Brannon Jackson DO 10/28/2011 Office visit Brannon Manuel DO 10/22/2011 [facility] Valery Cerna MD 10/21/2011 [facility] Valery Cerna MD 10/19/2011 Office visit Brannon Manuel DO 10/19/2011 [facility] Anderson Dawkins MD 10/07/2011 Office visit Brannon Manuel DO 04/27/2011 Office visit Brannon Manuel DO 04/16/2011 Office visit Brannon Manuel DO 12/18/2010 Office visit Brannon Manuel DO 11/17/2010 Office visit Brannon Jackson DO 10/08/2010 Office visit Brannon Jackson DO 08/18/2010 Office visit Regina Mcnally APRN 02/03/2010 Office visit Brannon Jackson DO 12/02/2009 Office visit Brannon Jackson DO 06/27/2009 Office visit Brannon Jackson DO
[2018-10-25] MEDS ORDERED: BUPIVACAINE 0.5% 30 ML (SENSORCAINE) VIAL ONE (08:03)
--- OUTSIDE RECORDS SUMMARY | 2018-10-25 08:04 | XMS REPORT ---
Author Author Brannon Jackson [facility] Address [address] [place], [place] [address] Care Team Providers Care Braiding Operator Name Role Phone Brannon Jackson PCP Brannon Jackson PreferredProvider Allergies and Adverse Reactions Name Reaction Notes promethazine vomiting Zofran vomiting Plan of Treatment Planned Activity Comments Planned Date Planned Time Plan/Goal MRI pelvis and hip left wo contrast 08/01/2015 12:00 AM MRI THORACIC SPINE W/O CONTRAST 12/15/2016 12:00 AM MRI LUMBAR SPINE W/O CONTRAST 12/15/2016 12:00 AM CX CHEST 2 VIEWS 05/11/2018 12:00 AM Hemoglobin A1c measurement 05/11/2018 12:00 [...] 2 times per day for 7 days [place] Thyroid 120 mg oral tablet 12/14/2012 12/09/2013 [...] Kenalog per 10Mg Im-[facility]#[address]-52(Man) Reviewed 12/23/2011 12:00 AM DRAIN/INJ JOINT/BURSA W/O US Reviewed 12/23/2011 12:00 AM Kenalog 40 Mg Im-[facility]#2248-8749-73 Reviewed 11/19/2016 12:00 AM X-RAY EXAM OF HAND Reviewed 01/19/2017 12:00 AM COMPLETE CBC W/AUTO DIFF WBC Reviewed 01/19/2017 12:00 AM COMPREHEN METABOLIC PANEL Reviewed 01/19/2017 12:00 AM GLYCOSYLATED HEMOGLOBIN TEST Reviewed 05/25/2012 12:00 AM INJ TRIGGER POINT 1/2 MUSCL Reviewed 05/25/2012 12:00 AM Kenalog, Per 10 Mg [facility]#6865-8389-96 Reviewed 06/14/2012 12:00 AM DRAIN/INJ JOINT/BURSA W/O US Reviewed 06/14/2012 12:00 AM Kenalog, Per 10 Mg [facility]#2179-1669-75 Reviewed 05/09/2017 12:00 AM MAMMOGRAPHY SCREENING, DIGITAL Reviewed 07/11/2012 12:00 AM THER/PROPH/DIAG INJ SC/IM Reviewed 07/11/2012 12:00 AM Decadron 1 mg [facility]#[id number] (Manuel) Reviewed 07/11/2012 12:00 AM Depo-Medrol 80 mg [facility]#[id number]-Swcsqcek Reviewed 08/21/2012 12:00 AM ASSAY CARBOXYHB QUANT Reviewed 09/01/2017 12:00 AM RADIOLOGIC EXAMINATION KNEE 1/2 VIEWS Reviewed 09/18/2012 12:00 AM DRAIN/INJ JOINT/BURSA W/O US Reviewed 09/18/2012 12:00 AM Kenalog, Per 10 Mg [facility]#8589-3431-49 Reviewed 10/25/2017 12:00 AM RADIOLOGIC EXAMINATION KNEE [...] 12/06/2012 12:00 AM Kenalog, Per 10 Mg [facility]#8952-1472-64 Reviewed 12/22/2012 12:00 AM TOTAL CORTISOL Reviewed 04/26/2013 12:00 AM DRAIN/INJ JOINT/BURSA W/O US Reviewed 04/26/2013 12:00 AM Kenalog, Per 10 Mg [facility]#8185-9524-28 Reviewed 05/10/2013 12:00 AM DRAIN/INJ JOINT/BURSA W/O US Reviewed 05/10/2013 12:00 AM Kenalog, Per 10 Mg [facility]#2840-7157-35 Reviewed 05/10/2013 12:00 AM DRAIN/INJ JOINT/BURSA W/O US Reviewed 05/10/2013 12:00 AM Kenalog, Per 10 Mg [facility]#1525-9576-85 Reviewed 05/28/2013 12:00 AM MAMMOGRAM SCREENING Reviewed [...] 03/05/2014 12:00 AM Kenalog, Per 10 Mg [facility]#5703-6633-26 Reviewed 04/05/2014 12:00 AM COMPLETE CBC W/AUTO [...] 2011 9:26AM Insomnia Feb 2011 3:26PM Dermatitis Feb 2011 3:26PM Otitis Externa, Acute - Right [...] Type II b 2014 8:20AM Hyperlipidemia, mixed b 2014 8:20AM Hypertension b 2014 8:20AM Overactive [...] Number Start Date [facility] Gpa [id number] Saturday, 2015 [employer] [place] [id number] Saturday, 2009 [employer] [place] [id number] Wednesday, 2009 History of Encounters Visit Date Visit Type Provider 05/11/2018 Office visit Brannon Jackson DO 03/28/2018 Office visit Brannon Jackson DO 12/02/2017 Office visit Brannon Jackson DO 11/11/2017 Office visit Brannon Jackson DO 11/09/2017 Office visit Harjinder Paiz PA-C 10/28/2017 Office visit Lakia Reina PROJECT ASSOCIATE 10/25/2017 Office visit Regina Mcnally PROJECT ASSOCIATE 10/05/2017 Office visit Regina Mcnally PROJECT ASSOCIATE 09/01/2017 Office visit Brannon Jackson DO 06/29/2017 Office visit Karyna Gilbert PROJECT ASSOCIATE 06/18/2017 Office visit Karyna Gilbert PROJECT ASSOCIATE 05/09/2017 Office visit Brannon Jackson DO 03/08/2017 Office visit Brannon Jackson DO 01/25/2017 Office visit Brannon Jackson DO 01/19/2017 Office visit Regina Mcnally PROJECT ASSOCIATE 01/04/2017 Procedures Reagan Lehman DO 12/24/2016 Office visit Brannon Jackson DO 12/23/2016 Surgery Reagan Lehman DO 12/14/2016 Office visit Reagan Lehman DO 11/25/2016 Office visit Brannon Jackson DO 11/19/2016 Office visit Sandra Milton PROJECT ASSOCIATE 11/02/2016 Office visit Lakia Reina PROJECT ASSOCIATE 09/09/2016 Office visit Brannon Jackson DO 05/18/2016 [...] visit Cass BRAY 09/20/2014 Office visit Brannon Simpsonte DO 09/05/2014 Office visit Cass BRAY 07/29/2014 [...] Jackson DO 08/27/2013 Office visit Regina Mcnally PROJECT ASSOCIATE 08/17/2013 Office visit Ray Tripathi PROJECT ASSOCIATE 05/21/2013 Office visit Brannon Jackson DO 05/10/2013 Office visit Anirudh Conway MD 04/26/2013 Office visit Anirudh Conway MD 12/22/2012 Office visit Brannon Jackson DO 12/14/2012 [facility] Sandra Ca MD 12/12/2012 Office visit Brannon Jackson DO 12/12/2012 [facility] Sandra Ca MD 12/06/2012 Office visit Anirudh Conway MD 11/24/2012 Office visit Regina Mcnally PROJECT ASSOCIATE 10/12/2012 [facility] Anirudh Conway MD 10/10/2012 Office visit Brannon Jackson DO 09/18/2012 Office visit Anirudh Conway MD 09/01/2012 Office visit Brannon Jackson DO 08/21/2012 Office visit Brannon Jackson DO 08/01/2012 Office visit Brannon Jackson DO 07/11/2012 Office visit Regina Mcnally PROJECT ASSOCIATE 06/14/2012 Office visit Anirudh Conway MD 05/25/2012 Office visit Anirudh Conway MD 05/04/2012 Office visit Brannon Jackson DO 12/23/2011 Office visit Anirudh Conway MD 12/16/2011 Office visit Brannon Jackson DO 12/06/2011 Office visit Anirudh Conway MD 11/11/2011 Office visit Brannon Manuel DO 10/28/2011 Office visit Brannon Manuel DO 10/22/2011 [facility] Valery Cerna MD 10/21/2011 [facility] Valery Cerna MD 10/19/2011 Office visit Brannon Simpsonte DO 10/19/2011 [facility] Anderson Dawkins MD 10/07/2011 Office visit Brannon Manuel DO 04/27/2011 Office visit Brannon Manuel DO 04/16/2011 Office visit Brannon Manuel DO 12/18/2010 Office visit Brannon Manuel DO 11/17/2010 Office visit Brannon Manuel DO 10/08/2010 Office visit Brannon Jackson DO 08/18/2010 Office visit Regina Mcnally APRN 02/03/2010 Office visit Brannon Jackson DO 12/02/2009 Office visit Brannon Jackson DO 06/27/2009 Office visit Brannon Jackson DO
--- OUTSIDE RECORDS SUMMARY | 2018-10-25 08:07 | XMS REPORT ---
Author Author Brannon Jackson [facility] Address [address] [place], [place] [id number] Care Team Providers Care Bulk Picker Name Role Phone Brannon Jackson PCP Unavailable Brannon Jackson PreferredProvider Unavailable Allergies and Adverse Reactions Name Reaction [...] (325 mg) by oral route once daily losartan-hydrochlorothiazide 100-25 mg oral tablet 05/18/2016 05/13/2017 TAKE 1 TABLET DAILY for 90 days amlodipine 5 mg oral tablet 01/18/2017 01/13/2018 take 1 tablet (5 mg) by oral route once daily for 90 days estradiol 0.5 mg oral tablet 01/18/2017 take 1 tablet (0.5 mg) by oral route once daily Prozac 20 mg oral capsule 01/18/2017 01/13/2018 take 1 capsule by oral route daily for 90 days losartan-hydrochlorothiazide 100-25 mg oral tablet 01/18/2017 01/13/2018 take 1 tablet by oral route once daily omeprazole 40 mg oral capsule,delayed release(DR/EC) 01/18/2017 01/13/2018 TAKE ONE CAPSULE BY MOUTH EVERY DAY for 90 days gabapentin 300 mg oral capsule 01/18/2017 01/13/2018 take 1 capsule by oral route 2 times a day for 90 days amitriptyline 10 mg oral tablet 01/18/2017 01/13/2018 take 1 tablet by oral route once a day (at bedtime) for 90 days cyclobenzaprine 10 mg oral tablet 01/18/2017 01/13/2018 take 1 tablet by oral route every 8 hours as needed for 90 days muscle spasm simvastatin 20 mg oral tablet 01/18/2017 01/13/2018 take 1 tablet (20 mg) by oral route once daily in the evening Miralax 17 gram/dose oral powder 01/19/2017 take 17 gram mixed with 8 oz. water, juice, soda, coffee or tea by oral route once daily OneTouch Verio miscellaneous strip 02/03/2017 Test glucose 4 times a day Dx: e11.65 Janumet 50-1,000 mg oral tablet 02/21/2017 02/16/2018 take 1 tablet by oral route 2 times per day with meals for 90 days Tivorbex 40 mg oral capsule 03/15/2017 07/13/2017 take 1 capsule (40 mg) by oral route 2 times per for 30 days tolterodine 4 mg oral capsule,extended release 24hr 03/29/2017 03/24/2018 take 1 capsule (4 mg) by oral route once daily for 90 days hydrocodone-acetaminophen 10-325 mg oral tablet 05/04/2017 06/03/2017 take 1 tablet by oral route every [...] 2 times per day for 7 days [place] Thyroid 120 mg oral tablet 12/14/2012 12/09/2013 [...] once daily at bedtime for 7 days metformin 1,000 mg oral tablet 01/18/2017 01/13/2018 take 1 tablet by oral route 2 times a day for 90 days metformin 1,000 mg oral tablet 01/18/2017 01/13/2018 take 1 tablet by oral route 2 times a day for 90 days Taking Janumet sulfamethoxazole-trimethoprim 800-160 mg oral tablet 02/04/2017 02/11/2017 take 1 tablet by oral route 2 times per day for 7 days Januvia 100 mg oral tablet 01/25/2017 02/08/2017 take 1 tablet (100 mg) by oral route once daily for 14 days Taking Janumet Discontinued Name Start Date Discontinued Date SIG [...] TAKE ONE TABLET BY MOUTH EVERY DAY estradiol 0.5 mg oral tablet 05/18/2016 09/09/2016 TAKE ONE TABLET BY MOUTH EVERY DAY no longer taking diclofenac sodium 75 mg oral tablet,delayed release (DR/EC) 09/09/20162016 take 1 tablet (75 mg) by oral route 2 times a day for 90 days diclofenac sodium 75 mg oral tablet,delayed release (DR/EC) 09/09/20162016 take 1 tablet (75 mg) by oral route 2 times a day for 90 days Switched to Tivorbex fluconazole 100 mg oral tablet 09/13/2016 11/25/2016 take 1 tablet by oral route every other day Accu-Chek Ana Cristina Plus test strp miscellaneous strip 12/30/2016 12/30/2016 Test glucose twice a day. Dx e11.9 lisinopril-hydrochlorothiazide 20-12.5 mg oral tablet 01/19/2017 03/08/2017 take 1 tablet by oral route once daily lisinopril-hydrochlorothiazide 20-12.5 mg oral tablet 01/19/2017 03/08/2017 take 1 tablet by oral route once daily No longer taking. On Losartan/HCT Problem List Description Status Onset Depressive Disorder [...] HC BMI BSA BMI Percentile O2 Sat(%) 03/08/2017 3:58:00 PM 138 mmHg 86 mmHg [...] bpm 98.1 F 234 lbs 68 in 35.5792 kg/m 2.2566 m 98 % 09/09/2016 3:21:00 PM 172 mmHg 90 mmHg 95 bpm 22 rpm 98.3 F 230 lbs 68 in 34.97 kg/m2 2.24 m2 98 % 05/18/2016 3:56:00 PM 138 mmHg 84 mmHg 81 bpm 16 rpm 98.5 F 244 lbs 68 in 37.0997 kg/m 2.3044 m 95 % 05/05/2016 8:47:00 AM 142 mmHg 88 mmHg 78 bpm 16 rpm 97.3 F 232 lbs 68 in 35.28 kg/m2 2.25 m2 98 % 02/05/2016 11:11:00 AM 136 mmHg 78 mmHg 80 bpm 20 rpm 99.3 F 235 lbs 68 in 35.7313 kg/m 2.2615 m 98 % 10/13/2015 3:52:00 PM 148 mmHg 86 mmHg 90 bpm 18 rpm 97.5 F 236 lbs 68 in 35.88 kg/m2 2.27 m2 97 % 09/03/2015 2:57:00 PM 138 mmHg 86 mmHg 89 bpm 20 rpm 97.2 F 231 lbs 68 in 35.1231 kg/m 2.2421 m 08/29/2015 9:23:00 AM 134 mmHg 76 mmHg 80 bpm 16 rpm 98 F 230 lbs 66 in 37.12 kg/m2 2.20 m2 99 % 08/20/2015 1:03:00 PM 122 mmHg 72 mmHg 96 bpm 18 rpm 98.6 F 226.375 lbs 68 in 34.4198 kg/m 2.2196 m 08/01/2015 11:33:00 AM 140 mmHg 82 mmHg 73 bpm 22 rpm 97.2 F 225 lbs 68 in 34.21 kg/m2 2.21 m2 07/02/2015 4:07:00 PM 136 mmHg 74 mmHg 70 bpm 18 rpm 96.2 F 225 lbs 68 in 34.2108 kg/m 2.2128 m 06/04/2015 11:34:00 AM 108 mmHg 62 mmHg 68 bpm 20 rpm 96.7 F 223 lbs 68 in 33.91 kg/m2 2.20 m2 05/15/2015 3:03:00 PM 138 mmHg 80 mmHg 82 bpm 20 rpm 98.7 F 220 lbs 68 in 33.4505 kg/m 2.1881 m 98 % 05/08/2015 11:38:00 AM 110 mmHg 64 mmHg 73 bpm 18 rpm 96.4 F 215 lbs 68 in 32.69 kg/m2 2.16 m2 04/28/2015 8:03:00 AM 134 mmHg 78 mmHg 80 bpm 16 rpm 98.9 F 215 lbs 68 in 32.6903 kg/m 2.1631 m 99 % 04/09/2015 11:50:00 AM 132 mmHg 82 mmHg 52 bpm 18 rpm 97 F 222 lbs 68 in 33.75 kg/m2 2.20 m2 04/01/2015 10:27:00 AM 132 mmHg 78 mmHg 71 bpm 20 rpm 97.6 F 226 lbs 68 in 34.3628 kg/m 2.2177 m 98 % 03/10/2015 4:30:00 PM 132 mmHg 86 mmHg 73 bpm 20 rpm 96.8 F 223 lbs 68 in 33.91 kg/m2 2.20 m2 02/25/2015 11:48:00 AM 142 mmHg 76 mmHg 73 bpm 20 rpm 97.4 F 219 lbs 68 in 33.2985 kg/m 2.1831 m 12/17/2014 8:18:00 AM 138 mmHg 88 mmHg 85 bpm 22 rpm 99.1 F 214 lbs 68 in 32.54 kg/m2 2.16 m2 98 % 12/12/2014 3:15:00 PM 128 mmHg 70 mmHg 76 bpm 18 rpm 97.4 F 222 lbs 68 in 33.7546 kg/m 2.198 m 10/02/2014 4:28:00 PM 124 mmHg 82 mmHg 70 bpm 18 rpm 97.9 F 224 lbs 68 in 34.06 kg/m2 2.21 m2 09/20/2014 9:51:00 AM 178 mmHg 98 mmHg 72 bpm 18 rpm 98 F 225 lbs 68 in 34.2108 kg/m 2.2128 m 99 % 09/05/2014 3:58:00 PM 128 mmHg 94 mmHg 78 bpm 16 rpm 97 F 223 lbs 68 in 33.91 kg/m2 2.20 m2 07/29/2014 11:12:00 AM 124 mmHg 80 mmHg 74 bpm 16 rpm 97.6 F 229 lbs 68 in 34.819 kg/m 2.2324 m 07/18/2014 10:35:00 AM 128 mmHg 62 mmHg 74 bpm 20 rpm 98.4 F 229 lbs 68 in 34.82 kg/m2 2.23 m2 99 % 07/03/2014 2:07:00 PM 110 mmHg 70 mmHg 87 bpm 18 rpm 97.7 F 228.5 lbs 68 in 34.7429 kg/m 2.23 m 96 % 06/11/2014 3:42:00 PM 126 mmHg 84 mmHg 70 bpm 16 rpm 96.8 F 228 lbs 68 in 34.67 kg/m2 2.23 m2 04/29/2014 12:59:00 PM 142 mmHg 92 mmHg 64 bpm 16 rpm 97.8 F 227 lbs 68 in 34.5149 kg/m 2.2226 m 04/29/2014 11:05:00 AM 136 mmHg 82 mmHg 71 bpm 20 rpm 98 F 227 lbs 68 in 34.51 kg/m2 2.22 m2 98 % 04/05/2014 5:12:00 PM 126 mmHg 68 mmHg 67 bpm 18 rpm 97.5 F 225 lbs 68 in 34.2108 kg/m 2.2128 m 98 % 02/25/2014 1:15:00 PM 144 mmHg 82 mmHg 74 bpm 16 rpm 97.2 F 231 lbs 68 in 35.12 kg/m2 2.24 m2 01/02/2014 8:29:00 AM 134 mmHg 84 mmHg 92 bpm 16 rpm 97.3 F 230 lbs 68 in 34.971 kg/m 2.2373 m 12/18/2013 9:07:00 AM 142 mmHg 100 mmHg 82 bpm 16 rpm 97.8 F 232 lbs 68 in 35.28 kg/m2 2.25 m2 09/13/2013 9:25:00 AM 142 mmHg 82 mmHg 92 bpm 16 rpm 97.2 F 218 lbs 68 in 33.1464 kg/m 2.1781 m 97 % 08/27/2013 9:20:00 AM 148 mmHg 92 mmHg 78 bpm 18 rpm 97.6 F 218.375 lbs 68 in 33.20 kg/m2 2.18 m2 99 % 08/17/2013 5:10:00 PM 144 mmHg 80 mmHg 84 bpm 20 rpm 98 F 226 lbs 68 in 34.3628 kg/m 2.2177 m 98 % 05/21/2013 3:35:00 PM 136 mmHg 76 mmHg 70 bpm 18 rpm 98 F 226 lbs 68 in 34.36 kg/m2 2.22 m2 04/26/2013 8:33:00 AM 164 mmHg 104 mmHg 82 bpm 16 rpm 96.6 F 235 lbs 68 in 35.7313 kg/m 2.2615 m 12/22/2012 11:06:00 AM 134 mmHg 70 mmHg 76 bpm 18 rpm 97.6 F 250 lbs 68 in 38.01 kg/m2 2.33 m2 12/12/2012 2:19:00 PM 144 mmHg 80 mmHg 76 bpm 20 rpm 97 F 260 lbs 68 in 39.5325 kg/m 2.3787 m 12/06/2012 3:42:00 PM 142 mmHg 96 mmHg 68 bpm 16 rpm 98 F 257 lbs 68 in 39.08 kg/m2 2.36 m2 11/24/2012 10:44:00 AM 132 mmHg 78 mmHg 75 bpm 18 rpm 98 F 256 lbs 68 in 38.9243 kg/m 2.3603 m 99 % 10/10/2012 3:45:00 PM 144 mmHg 80 mmHg 78 bpm 18 rpm 98.3 F 264 lbs 68 in 40.14 kg/m2 2.40 m2 09/18/2012 4:00:00 PM 134 mmHg 92 mmHg 64 bpm 16 rpm 97 F 270 lbs 68 in 41.0529 kg/m 2.424 m 09/01/2012 8:24:00 AM 156 mmHg 82 mmHg 90 bpm 22 rpm 97.9 F 269 lbs 68 in 40.90 kg/m2 2.42 m2 98 % 08/21/2012 3:03:00 PM 134 mmHg 78 mmHg 80 bpm 18 rpm 97.8 F 264 lbs 68 in 40.1407 kg/m 2.3969 m 08/01/2012 9:56:00 AM 152 mmHg 90 mmHg 78 bpm 22 rpm 98 F 263 lbs 68 in 39.99 kg/m2 2.39 m2 07/11/2012 4:21:00 PM 132 mmHg 68 mmHg 68 bpm 18 rpm 97.9 F 265.25 lbs 68 in 40.3307 kg/m 2.4026 m 06/14/2012 3:38:00 PM 110 mmHg 74 mmHg 84 bpm 18 rpm 97.1 F 272 lbs 68 in 41.36 kg/m2 2.43 m2 05/04/2012 9:51:00 AM 148 mmHg 80 mmHg 76 bpm 18 rpm 98.8 F 271 lbs 68 in 41.205 kg/m 2.4285 m 12/23/2011 11:17:00 AM 136 mmHg 92 mmHg 82 bpm 16 rpm 96.4 F 285 lbs 68 in 43.33 kg/m2 2.49 m2 12/16/2011 3:43:00 PM 128 mmHg 70 mmHg 76 bpm 18 rpm 98.2 F 232 lbs 12/16/2011 3:23:00 PM 136 mmHg 70 mmHg 70 bpm 18 rpm 97.2 F 286 lbs 68 in 43.49 kg/m2 2.49 m2 12/06/2011 4:18:00 PM 142 mmHg 94 mmHg 74 bpm 16 rpm 97 F 290.5 lbs 68 in 44.1699 kg/m 2.5144 m 11/11/2011 3:41:00 PM 132 mmHg 78 mmHg 74 bpm 18 rpm 98.2 F 283 lbs 66 in 45.68 kg/m2 2.44 m2 10/28/2011 3:42:00 PM 144 mmHg 80 mmHg 86 bpm 22 rpm 98 F 286 lbs 68 in 43.4857 kg/m 2.4948 m 96 % 10/19/2011 3:43:00 PM 160 mmHg [...] F 274 lbs 68 in 41.66 kg/m2 2.44 m2 12/02/2009 3:42:00 PM 150 mmHg 80 mmHg [...] Reviewed 12/13/2011 12:00 AM Kenalog per 10Mg [facility]#[address]-95(Man) Reviewed 12/23/2011 12:00 AM DRAIN/INJ JOINT/BURSA W/O US Reviewed 12/23/2011 12:00 AM Kenalog 40 Mg [facility]#2617-1263-46 Reviewed 11/19/2016 12:00 AM X-RAY EXAM OF HAND Reviewed 01/19/2017 12:00 AM COMPLETE CBC W/AUTO DIFF WBC Reviewed 01/19/2017 12:00 AM COMPREHEN METABOLIC PANEL Reviewed 01/19/2017 12:00 AM GLYCOSYLATED HEMOGLOBIN TEST Reviewed 05/25/2012 12:00 AM INJ TRIGGER POINT 1/2 MUSCL Reviewed 05/25/2012 12:00 AM Kenalog, Per 10 Mg [facility]#5486-8990-39 Reviewed 06/14/2012 12:00 AM DRAIN/INJ JOINT/BURSA W/O US Reviewed 06/14/2012 12:00 AM Kenalog, Per 10 Mg [facility]#2218-7870-89 Reviewed 07/11/2012 12:00 AM THER/PROPH/DIAG INJ SC/IM Reviewed 07/11/2012 12:00 AM Decadron 1 mg [facility]#[id number] (Manuel) Reviewed 07/11/2012 12:00 AM Depo-Medrol 80 mg [facility]#[id number] Reviewed 08/21/2012 12:00 AM ASSAY CARBOXYHB QUANT Reviewed 09/18/2012 12:00 AM DRAIN/INJ JOINT/BURSA W/O US Reviewed 09/18/2012 12:00 AM Kenalog, Per 10 Mg [facility]#3368-7644-56 Reviewed 10/13/2012 12:00 AM COMPREHEN METABOLIC PANEL Reviewed 10/13/2012 12:00 AM LIPID PANEL Reviewed 10/13/2012 12:00 AM GLYCOSYLATED HEMOGLOBIN TEST Reviewed 10/13/2012 12:00 AM MICROALBUMIN SEMIQUANT Reviewed 04/15/2010 12:00 AM MAMMOGRAM SCREENING Reviewed 12/06/2012 12:00 AM DRAIN/INJ JOINT/BURSA W/O US Reviewed 12/06/2012 12:00 AM Kenalog, Per 10 Mg [facility]#5723-1337-76 Reviewed 12/22/2012 12:00 AM TOTAL CORTISOL Reviewed 04/26/2013 12:00 AM DRAIN/INJ JOINT/BURSA W/O US Reviewed 04/26/2013 12:00 AM Kenalog, Per 10 Mg [facility]#8751-1867-08 Reviewed 05/10/2013 12:00 AM DRAIN/INJ JOINT/BURSA W/O US Reviewed 05/10/2013 12:00 AM Kenalog, Per 10 Mg [facility]#9156-3453-55 Reviewed 05/10/2013 12:00 AM DRAIN/INJ JOINT/BURSA W/O US Reviewed 05/10/2013 12:00 AM Kenalog, Per 10 Mg [facility]#2156-7098-82 Reviewed 05/28/2013 12:00 AM MAMMOGRAM SCREENING Reviewed [...] 03/05/2014 12:00 AM Kenalog, Per 10 Mg [facility]#0091-7603-42 Reviewed 04/05/2014 12:00 AM COMPLETE CBC W/AUTO [...] 5.6 mg/Cynthia REACTIVE PROTEIN 17.0 mg/LSEDRATE 24.0 mm/hrRA Factor < 10.0 FIBRINOGEN 276.0 mg/dLGLYCOHEMOGLOBIN A1C 7.90 % VITAMIN B12 591.0 pg/mL 12/07/2011 5:05 PM CPK 229 IU/LMAGNESIUM 2.10 mg/dLTSH 0.480 uIU/mL 08/21/2012 3:45 PM Carbon Monoxide 2.3 10/16/2012 [...] NEGATIVE YEAST NEGATIVE CULT SET UP? NO MICROALBUMIN UR 7.0 ug/mL 02/25/2015 12:40 PM [...] 0.26 #BASO 0.04 MANUAL DIFF NOT IND History Of Immunizations Not available. History of [...] 2011 3:43PM Pain in joint; Bilateral Hip Dec 06 2011 4:20PM Bursitis Feb 2011 4:20PM Pain in joint; Knee Dec 06 2011 4:20PM Fibromyalgia Dec 06 2011 4:20PM Lumbago Feb 2011 4:20PM Cervicalgia b 2011 4:20PM Trochanteric Bursitis Feb 13 2011 9:26AM Insomnia Dec 16 2011 3:26PM Dermatitis Dec 16 2011 3:26PM Otitis Externa, Acute - Right Dec 16 2011 3:26PM Pain in joint; Knee Dec 23 2011 11:24AM Fibromyalgia b 2011 11:24AM Lumbago Dec 23 2011 11:24AM [...] use of insulin Mar 08 2017 3:59PM Payers Insurance Name Company Name Plan Name Plan Number Policy Number Policy Group Number Start Date [facility] Gpa [id number] Saturday, 2015 [employer] [id number] Saturday, 2009 [id number] Wednesday, 2009 History of Encounters Visit Date Visit Type Provider 03/08/2017 Office visit Brannon Jackson DO 01/25/2017 Office visit Brannon Jackson DO 01/19/2017 Office visit Regina Mcnally FOREIGN LANGUAGE PROFESSOR 01/04/2017 Procedures Reagan Lehman DO 12/24/2016 Office visit Brannon Jackson DO 12/23/2016 Surgery Reagan Lehman DO 12/14/2016 Office visit Reagan Lehman DO 11/25/2016 Office visit Brannon Jackson DO 11/19/2016 Office visit Sandra Keanedez FOREIGN LANGUAGE PROFESSOR 11/02/2016 Office visit Lakia Reina FOREIGN LANGUAGE PROFESSOR 09/09/2016 Office visit Brannon Jackson DO 05/18/2016 Office visit Brannon Jackson DO 05/05/2016 Office visit 05/05/2016 Office visit Brannon Jackson DO 02/05/2016 Office visit Brannon Jackson DO 12/09/2015 Voided Cass BRAY 10/13/2015 Office visit Brannon Manuel DO 09/18/2015 Nurse visit Cass BRAY 09/03/2015 Procedures Reagan Thomaslois DO 08/29/2015 Office visit Brannon Manuel DO [...] Jackson DO 09/05/2014 Office visit Cass Arellano MANAGER SEMICONDUCTOR 07/29/2014 Office visit Cass Arellano MANAGER SEMICONDUCTOR 07/18/2014 Office visit Brannon Manuel DO 07/03/2014 Office visit Rob Ruiz FOREIGN LANGUAGE PROFESSOR 06/11/2014 Office visit Cass Arellano MANAGER SEMICONDUCTOR 04/29/2014 Office visit Cass Arellano MANAGER SEMICONDUCTOR 04/29/2014 Office visit Brannon Manuel DO 04/05/2014 Office visit Harjinder Paiz PA-C 02/25/2014 Office visit Cass Arellano MANAGER SEMICONDUCTOR 01/02/2014 Office visit Cass Arellano MANAGER SEMICONDUCTOR 12/18/2013 Office visit Cass Arellano MANAGER SEMICONDUCTOR 09/13/2013 Office visit Brannon Simpsonte DO 08/27/2013 Office visit Regina Mcnally FOREIGN LANGUAGE PROFESSOR 08/17/2013 Office visit Ray Tripathi FOREIGN LANGUAGE PROFESSOR 05/21/2013 Office visit Brannon Jackson DO 05/10/2013 Office visit Anirudh Conway MD 04/26/2013 Office visit Anirudh Conway MD 12/22/2012 Office visit Brannon Jackson DO 12/14/2012 [facility] Sandra Ca MD 12/12/2012 Office visit Brannon Jackson DO 12/12/2012 [facility] Sandra Ca MD 12/06/2012 Office visit Anirudh Conway MD 11/24/2012 Office visit Regina Mcnally FOREIGN LANGUAGE PROFESSOR 10/12/2012 [facility] Anirudh Conway MD 10/10/2012 Office visit Brannon Jackson DO 09/18/2012 Office visit Anirudh Conway MD 09/01/2012 Office visit Brannon Jackson DO 08/21/2012 Office visit Brannon Jackson DO 08/01/2012 Office visit Brannon Jackson DO 07/11/2012 Office visit Regina Mcnally FOREIGN LANGUAGE PROFESSOR 06/14/2012 Office visit Anirudh Conway MD 05/25/2012 Office visit Anirudh Conway MD 05/04/2012 Office visit Brannon Jackson DO 12/23/2011 Office visit Anirudh Conway MD 12/16/2011 Office visit Brannon Jackson DO 12/06/2011 Office visit Anirudh Conway MD 11/11/2011 Office visit Brannon Jackson DO 10/28/2011 [facility] Valery Cerna MD 10/19/2011 Office visit Brannon Jackson DO 10/19/2011 [facility] Anderson Dawkins MD 10/07/2011 Office [...]
--- OUTSIDE RECORDS SUMMARY | 2018-10-25 08:09 | XMS REPORT ---
Author Author Karyna Gilbert [facility] Address [address] [place], [place] [id number] Care Team Providers Care Entry Level Drafter Name Role Phone Karyna Gilbert PCP Unavailable Brannon Jackson PreferredProvider Unavailable Allergies [...] 09/01/2015 use as directed single point mckeon amlodipine 5 mg oral tablet 01/18/2017 01/13/2018 take 1 tablet (5 mg) by oral route once daily for 90 days Prozac 20 mg oral capsule 01/18/2017 01/13/2018 take 1 capsule by oral route daily for 90 days omeprazole 40 mg oral capsule,delayed release(DR/EC) 01/18/2017 [...] oral route once daily in the evening OneTouch Verio miscellaneous strip 02/03/2017 Test glucose 4 times a day Dx: e11.65 Janumet 50-1,000 mg oral tablet 02/21/2017 02/16/2018 take 1 tablet by oral route 2 times per day with meals for 90 days tolterodine 4 mg oral capsule,extended release 24hr 03/29/2017 03/24/2018 take 1 capsule (4 mg) by oral route once daily for 90 days estradiol 0.5 mg oral tablet 05/09/2017 take 1 tablet (0.5 mg) by oral route once daily Tivorbex 40 mg oral capsule 05/09/2017 05/04/2018 take 1 capsule (40 mg) by oral route 2 times per for 90 days hydrocortisone valerate 0.2 % topical cream 05/20/2017 apply a thin layer to the affected area(s) by topical route 3 times per day hydroxyzine pamoate 25 mg oral capsule 06/29/2017 take 1 capsule (25 mg) by oral route at HS x 10 days losartan-hydrochlorothiazide 100-25 mg oral tablet 07/11/2017 01/02/2019 TAKE 1 TABLET DAILY permethrin 5 % topical cream 07/29/2017 apply (thoroughly massage into skin from head to feet) by topical route once leave on 8-14 hr, then bathe1 hydrocodone-acetaminophen 10-325 mg oral tablet 08/04/2017 09/03/2017 take 1 tablet by oral route every [...] 2 times per day for 7 days [place] Thyroid 120 mg oral tablet 12/14/2012 12/09/2013 [...] mg) po at HS x 7 days Discontinued Name Start Date Discontinued [...] oral route every 6 hours as needed diclofenac sodium 75 mg oral tablet,delayed release (DR/EC) 07/11/20172016 TAKE 1 TABLET TWICE A DAY diclofenac sodium 75 mg oral tablet,delayed release (DR/EC) 07/11/20172016 TAKE 1 TABLET TWICE A DAY currently taking Tivorbex Problem List Description Status Onset Depressive Disorder [...] HC BMI BSA BMI Percentile O2 Sat(%) 06/29/2017 7:35:00 PM 150 mmHg 90 mmHg [...] lbs 68 in 36.19 kg/m2 2.28 m2 97 % 12/14/2016 2:45:00 PM 168 mmHg 93 mmHg 92 bpm 20 rpm 97.7 F 238 lbs 68 in 36.1874 kg/m 2.2758 m 11/25/2016 3:26:00 PM 162 mmHg 98 mmHg 98 bpm 20 rpm 98.2 F 230 lbs 68 in 34.97 kg/m2 2.24 m2 97 % 11/19/2016 5:41:00 PM 180 mmHg 120 mmHg 98 bpm 99.2 F 233 lbs 68 in 35.4272 kg/m 2.2518 m 99 % 11/02/2016 5:12:00 PM 188 mmHg [...] Reviewed 12/13/2011 12:00 AM Kenalog per 10Mg Im-[facility]#[address]-29(Man) Reviewed 12/23/2011 12:00 AM DRAIN/INJ JOINT/BURSA W/O US Reviewed 12/23/2011 12:00 AM Kenalog 40 Mg Im-[facility]#6722-8979-16 Reviewed 11/19/2016 12:00 AM X-RAY EXAM OF HAND Reviewed 01/19/2017 12:00 AM COMPLETE CBC W/AUTO DIFF WBC Reviewed 01/19/2017 12:00 AM COMPREHEN METABOLIC PANEL Reviewed 01/19/2017 12:00 AM GLYCOSYLATED HEMOGLOBIN TEST Reviewed 05/25/2012 12:00 AM INJ TRIGGER POINT 1/2 MUSCL Reviewed 05/25/2012 12:00 AM Kenalog, Per 10 Mg ND#6997-1668-41 Reviewed 06/14/2012 12:00 AM DRAIN/INJ JOINT/BURSA W/O US Reviewed 06/14/2012 12:00 AM Kenalog, Per 10 Mg [facility]#7939-3781-17 Reviewed 05/09/2017 12:00 AM MAMMOGRAPHY SCREENING, DIGITAL Reviewed 07/11/2012 12:00 AM THER/PROPH/DIAG INJ SC/IM Reviewed 07/11/2012 12:00 AM Decadron 1 mg [facility]#[id number] (Manuel) Reviewed 07/11/2012 12:00 AM Depo-Medrol 80 mg [facility]#[id number]-Lvjzmtot Reviewed 08/21/2012 12:00 AM ASSAY CARBOXYHB QUANT Reviewed 09/18/2012 12:00 AM DRAIN/INJ JOINT/BURSA W/O US Reviewed 09/18/2012 12:00 AM Kenalog, Per 10 Mg [facility]#1062-3968-63 Reviewed 10/13/2012 12:00 AM COMPREHEN METABOLIC PANEL Reviewed 10/13/2012 12:00 AM LIPID PANEL Reviewed 10/13/2012 12:00 AM GLYCOSYLATED HEMOGLOBIN TEST Reviewed 10/13/2012 12:00 AM MICROALBUMIN SEMIQUANT Reviewed 04/15/2010 12:00 AM MAMMOGRAM SCREENING Reviewed 12/06/2012 12:00 AM DRAIN/INJ JOINT/BURSA W/O US Reviewed 12/06/2012 12:00 AM Kenalog, Per 10 Mg [facility]#0575-4516-35 Reviewed 12/22/2012 12:00 AM TOTAL CORTISOL Reviewed 04/26/2013 12:00 AM DRAIN/INJ JOINT/BURSA W/O US Reviewed 04/26/2013 12:00 AM Kenalog, Per 10 Mg [facility]#4222-5604-95 Reviewed 05/10/2013 12:00 AM DRAIN/INJ JOINT/BURSA W/O US Reviewed 05/10/2013 12:00 AM Kenalog, Per 10 Mg [facility]#7439-8937-74 Reviewed 05/10/2013 12:00 AM DRAIN/INJ JOINT/BURSA W/O US Reviewed 05/10/2013 12:00 AM Kenalog, Per 10 Mg [facility]#8103-0907-38 Reviewed 05/28/2013 12:00 AM MAMMOGRAM SCREENING Reviewed [...] Per 10 Mg [facility]#4823-5772-59 Reviewed 04/05/2014 12:00 AM COMPLETE CBC W/AUTO [...] Reviewed Results Summary Date and Description Results 10/08/2010 4:08 PM COLOR YELLOW APPEARANCE CLOUDY [...] 7.70 %Est Avg Glucose 174.3 mg/dL 12/17/2014 8:00 AM TRIGLYCERIDES 87.0 mg/dLCHOLESTEROL 155.0 [...] Bilateral Hip Dec 06 2011 4:20PM Bursitis Dec 06 2011 4:20PM Pain in joint; Knee Feb 6 2011 4:20PM Fibromyalgia Feb 6 2011 4:20PM Lumbago Feb 2011 4:20PM Cervicalgia Feb 2011 4:20PM Trochanteric Bursitis Dec 13 2011 9:26AM Insomnia Dec 16 2011 [...] Dec 12 2014 3:20PM Osteoarthritis, Left Hip b 2014 3:20PM Fatigue Feb 2014 3:20PM Diabetes Mellitus, Type II Feb 13 2014 12:09PM Dysuria Feb 13 2014 12:09PM Gastroesophageal Reflux Dec 17 [...] 2017 8:43AM Scabies Jun 29 2017 7:37PM Payers Insurance Name Company Name Plan Name Plan Number Policy Number Policy Group Number Start Date [facility] [id number] Saturday, 2015 [employer] [place] [id number] Saturday, 2009 [employer] [place] [id number] Wednesday, 2009 History of Encounters Visit Date Visit Type Provider 06/29/2017 Office visit Karyna Gilbert CUSTOMER LOYALTY REPRESENTATIVE 06/18/2017 Office visit Karyna Gilbert CUSTOMER LOYALTY REPRESENTATIVE 05/09/2017 Office visit Brannon Jackson DO 03/08/2017 Office visit Brannon Jackson DO 01/25/2017 Office visit Brannon Jackson DO 01/19/2017 Office visit Regina Mcnally CUSTOMER LOYALTY REPRESENTATIVE 01/04/2017 Procedures Reagan Lehman DO 12/24/2016 Office visit Brannon Jackson DO 12/23/2016 Surgery Reagan Lehman DO 12/14/2016 Office visit Reagan Lehman DO 11/25/2016 Office visit Brannon Jackson DO 11/19/2016 Office visit Sandra Milton CUSTOMER LOYALTY REPRESENTATIVE 11/02/2016 Office visit Lakia Reina CUSTOMER LOYALTY REPRESENTATIVE 09/09/2016 Office visit Brannon Jackson DO 05/18/2016 Office visit Brannon Jackson DO 05/05/2016 Office visit 05/05/2016 Office visit Brannon Jackson 02/05/2016 Office visit Brannon Jackson DO 12/09/2015 Voided Cass BRAY 10/13/2015 Office visit Brannon Jackson 09/18/2015 Nurse visit Cass BRAY 09/03/2015 Procedures Reagan Fallon DO 08/29/2015 Office visit Brannon Jackson DO 08/20/2015 Office visit Cass BRAY 08/01/2015 Office visit Cass BRAY 07/02/2015 Office visit Cass BRAY 06/04/2015 Office visit Cass BRAY 05/15/2015 Office visit Brannon Simpsonte DO 05/08/2015 Nurse visit Cass BRAY 04/28/2015 Office visit 04/28/2015 Office visit Brannon Tidwellburt BALTAZAR 04/09/2015 Office visit Cass BRAY 04/01/2015 Procedures Dinesh Zhu MD 04/01/2015 Office visit Brannon Tidwellburt BALTAZAR 03/10/2015 Office visit Cass BRAY 02/25/2015 Office visit Cass BRAY 02/05/2015 Nurse visit Cass BRAY 12/17/2014 Hospital Dinesh Zhu MD 12/17/2014 Office visit Brannon Simpsonrodri BALTAZAR 12/12/2014 Office visit Cass BRAY 10/29/2014 Office visit Cass BRAY 10/02/2014 Office visit Cass BRAY 09/20/2014 Office visit Brannon Manuel DO 09/05/2014 Office visit Cass BRAY 07/29/2014 Office visit Cass BRAY 07/18/2014 Office visit Brannon Tidwellburt BALTAZAR 07/03/2014 Office visit Rob Ruiz APRN 06/11/2014 Office visit Cass BRAY 04/29/2014 Office visit Cass BRAY 04/29/2014 Office visit Brannon Manuel DO 04/05/2014 Office visit Harjinder Paiz PA-C 02/25/2014 Office visit Cass BRAY 01/02/2014 Office visit Cass BRAY 12/18/2013 Office visit Cass BRAY 09/13/2013 Office visit Brannon Manuel DO 08/27/2013 Office visit Regina Mcnally CUSTOMER LOYALTY REPRESENTATIVE 08/17/2013 Office visit Ray Tripathi APRN 05/21/2013 Office visit Brannon Jackson DO 05/10/2013 Office visit Anirudh Conway MD 04/26/2013 Office visit Anirudh Conway MD 12/22/2012 Office visit Brannon Manule DO 12/14/2012 [facility] Sandra Ca MD 12/12/2012 Office visit Brannon Jackson DO 12/12/2012 [facility] Sandra Ca MD 12/06/2012 Office visit Anirudh Conway MD 11/24/2012 Office visit Regina Mcnally CUSTOMER LOYALTY REPRESENTATIVE 10/12/2012 [facility] Anirudh Conway MD 10/10/2012 Office visit Brannon Jackson DO 09/18/2012 Office visit Anirudh Conway MD 09/01/2012 Office visit Brannon Jackson DO 08/21/2012 Office visit Brannon Jackson DO 08/01/2012 Office visit Brannon Jackson DO 07/11/2012 Office visit Regina Mcnally CUSTOMER LOYALTY REPRESENTATIVE 06/14/2012 Office visit Anirudh Conway MD 05/25/2012 [...] Jackson DO 08/18/2010 Office visit Regina Mcnally CUSTOMER LOYALTY REPRESENTATIVE 02/03/2010 Office visit Brannon Jackson DO 12/02/2009 Office visit Brannon Jackson DO 06/27/2009 Office visit Brannon Jackson DO
--- OUTSIDE RECORDS SUMMARY | 2018-10-25 08:11 | XMS REPORT ---
Author Author Brannon Jackson [facility] Address [address] [place], [place] [id number] Care Team Providers Care Brush Operator Name Role Phone Brannon Jackson PCP Unavailable Brannon Jackson PreferredProvider Unavailable Allergies and Adverse Reactions Name Reaction Notes Promethazine vomiting Zofran vomiting Plan of Treatment Planned Activity Comments Planned Date Planned Time Plan/Goal MRI pelvis and hip left wo contrast 08/01/2015 12:00 AM C-Reactive Protein (CRP) 05/04/2012 12:00 AM Uric acid; blood 05/04/2012 12:00 AM Rheumatoid factor; quantitative 05/04/2012 12:00 AM GALINA titer 05/04/2012 12:00 AM Erythrocyte sedimentation rate (ESR), automated 05/04/2012 12:00 AM Fibrinogen; activity 05/04/2012 12:00 AM Vitamin D 25 Hydroxy (Vitamin D-3) 05/04/2012 12:00 AM Vitamin B12 (cyanocobalamin) 05/04/2012 12:00 AM Vitamin B6 05/04/2012 12:00 AM Hemoglobin A1c 05/04/2012 12:00 AM Abdominal ultrasound, complete 05/04/2012 12:00 AM Comprehensive metabolic panel 02/06/2013 12:00 AM Lipid Profile 02/06/2013 12:00 AM Hemoglobin A1c 02/06/2013 12:00 AM Microalbuminuria 02/06/2013 12:00 AM Hgb A1c 09/20/2014 12:00 AM Microalbumin urine 09/20/2014 12:00 AM Hgb A1c 04/18/2015 12:00 AM Medications Active Name Start [...] TAKE 1 TABLET DAILY for 90 days amitriptyline 10 mg oral tablet 09/09/2016 09/04/2017 take 1 tablet by oral route once a day (at bedtime) for 90 days amlodipine 5 mg Oral Tablet 09/09/2016 09/04/2017 take 1 tablet (5 mg) by oral route once daily for 90 days cyclobenzaprine 10 mg oral tablet 09/09/2016 09/04/2017 take 1 tablet by oral route every 8 hours as needed for 90 days muscle spasm diclofenac sodium 75 mg oral tablet,delayed release (DR/EC) 09/09/20162016 take 1 tablet (75 mg) by oral route 2 times a day for 90 days fluconazole 100 mg oral tablet 09/09/2016 take 1 tablet by oral route every other day gabapentin 300 mg oral capsule 09/09/2016 09/04/2017 take 1 capsule by oral route 2 times a day for 90 days hydrocodone-acetaminophen 10-325 mg oral tablet 09/09/2016 10/09/2016 take 1 tablet by oral route every 6 hours for 30 days losartan-hydrochlorothiazide 100-25 mg oral tablet 09/09/2016 09/04/2017 take 1 tablet by oral route once daily metformin 1,000 mg oral tablet 09/09/2016 09/04/2017 take 1 tablet by oral route 2 times a day for 90 days omeprazole 40 mg oral capsule,delayed release(DR/EC) 09/09/2016 09/04/2017 TAKE ONE CAPSULE BY MOUTH EVERY DAY for 90 days Prozac 20 mg oral capsule 09/09/2016 09/04/2017 take 1 capsule by oral route daily for 90 days Simvastatin 20 mg Oral Tablet 09/09/2016 09/04/2017 take 1 tablet (20 mg) by oral route once daily in the evening tolterodine 4 mg oral capsule,extended release 24hr 09/09/2016 09/04/2017 take 1 capsule (4 mg) by oral [...] 2 times per day for 7 days [place] Thyroid 120 mg oral tablet 12/14/2012 12/09/2013 [...] times per day as needed Taking Hydrocodone Discontinued Name Start Date Discontinued Date SIG [...] BY MOUTH EVERY DAY no longer taking Problem List Description Status Onset Depressive Disorder Active Diabetes Mellitus, Type II Active Hyperlipidemia, mixed Active Hypertension Active Obesity Active Fibromyalgia Active 05/26/2013 Overactive bladder Active 12/18/2014 Osteoarthritis, Left Hip Active 03/10/2015 Left hip pain Active 03/10/2015 Lumbago Active 06/04/2015 Vital Signs Date Time BP-Sys(mm[Hg] BP-Debo(mm[Hg]) HR(bpm) RR(rpm) Temp WT HT HC BMI BSA BMI Percentile O2 Sat(%) 09/09/2016 3:21:00 PM 172 mmHg 90 mmHg [...] Reviewed 12/13/2011 12:00 AM Kenalog per 10Mg Im-[facility]#[address]-81(Man) Reviewed 12/23/2011 12:00 AM DRAIN/INJ JOINT/BURSA W/O US Reviewed 12/23/2011 12:00 AM Kenalog 40 Mg Im-[facility]#8528-7945-47 Reviewed 05/25/2012 12:00 AM INJ TRIGGER POINT 1/2 MUSCL Reviewed 05/25/2012 12:00 AM Kenalog, Per 10 Mg [facility]#3679-2080-58 Reviewed 06/14/2012 12:00 AM DRAIN/INJ JOINT/BURSA W/O US Reviewed 06/14/2012 12:00 AM Kenalog, Per 10 Mg [facility]#6875-1857-57 Reviewed 07/11/2012 12:00 AM THER/PROPH/DIAG INJ SC/IM Reviewed 07/11/2012 12:00 AM Decadron 1 mg [facility]#[id number] (Manuel) Reviewed 07/11/2012 12:00 AM Depo-Medrol 80 mg [facility]#[id number]-Trbqbdmy Reviewed 08/21/2012 12:00 AM ASSAY CARBOXYHB QUANT Reviewed 09/18/2012 12:00 AM DRAIN/INJ JOINT/BURSA W/O US Reviewed 09/18/2012 12:00 AM Kenalog, Per 10 Mg [facility]#0018-4233-63 Reviewed 10/13/2012 12:00 AM COMPREHEN METABOLIC PANEL Reviewed 10/13/2012 12:00 AM LIPID PANEL Reviewed 10/13/2012 12:00 AM GLYCOSYLATED HEMOGLOBIN TEST Reviewed 10/13/2012 12:00 AM MICROALBUMIN SEMIQUANT Reviewed 04/15/2010 12:00 AM MAMMOGRAM SCREENING Reviewed 12/06/2012 12:00 AM DRAIN/INJ JOINT/BURSA W/O US Reviewed 12/06/2012 12:00 AM Kenalog, Per 10 Mg [facility]#4921-3355-37 Reviewed 12/22/2012 12:00 AM TOTAL CORTISOL Reviewed 04/26/2013 12:00 AM DRAIN/INJ JOINT/BURSA W/O US Reviewed 04/26/2013 12:00 AM Kenalog, Per 10 Mg [facility]#8689-2378-83 Reviewed 05/10/2013 12:00 AM DRAIN/INJ JOINT/BURSA W/O US Reviewed 05/10/2013 12:00 AM Kenalog, Per 10 Mg [facility]#3077-1549-26 Reviewed 05/10/2013 12:00 AM DRAIN/INJ JOINT/BURSA W/O US Reviewed 05/10/2013 12:00 AM Kenalog, Per 10 Mg [facility]#5438-2970-65 Reviewed 05/28/2013 12:00 AM MAMMOGRAM SCREENING Reviewed [...] 03/05/2014 12:00 AM Kenalog, Per 10 Mg [facility]#3873-5208-63 Reviewed 04/05/2014 12:00 AM COMPLETE CBC W/AUTO [...] AA 92 eGFR >60 mL/min/1.73meGFR AA* >60 History Of Immunizations Not available. History of [...] in joint; Knee b 2011 11:24AM Fibromyalgia Feb 2011 11:24AM Lumbago Feb 2011 11:24AM Cervicalgia b 2011 11:24AM Osteoarthritis [...] Feb 2014 3:20PM Osteoarthritis, Left Hip Feb 12 2014 3:20PM Fatigue Feb 12 2014 3:20PM Diabetes Mellitus, Type II Feb 13 2014 12:09PM Dysuria Feb 13 2014 12:09PM Gastroesophageal Reflux Feb 17 2014 8:20AM Diabetes Mellitus, Type II Feb 2014 8:20AM Hyperlipidemia, mixed b 2014 8:20AM Hypertension Feb 2014 8:20AM Overactive bladder Feb 17 2014 [...] 3:23PM Vulvovaginal candidiasis Sep 09 2016 3:23PM Payers Insurance Name Company Name Plan Name Plan Number Policy Number Policy Group Number Start Date [facility] Gpa [id number] Saturday, 2015 [employer] [facility] [id number] Saturday, 2009 [employer] [facility] [id number] Wednesday, 2009 History of Encounters Visit Date Visit Type Provider 09/09/2016 Office visit Brannon Jackson DO 05/18/2016 [...] Jackson DO 09/05/2014 Office visit Cass Arellano MACHINIST SUPERVISOR OUTSIDE 07/29/2014 Office visit Cass Arellano MACHINIST SUPERVISOR OUTSIDE 07/18/2014 Office visit Brannon Manuel DO 07/03/2014 Office visit Rob Downingran TRAM DRIVER 06/11/2014 Office visit Cass Arellano MACHINIST SUPERVISOR OUTSIDE 04/29/2014 Office visit Cass Arellano MACHINIST SUPERVISOR OUTSIDE 04/29/2014 Office visit Brannon Manuel DO 04/05/2014 Office visit Harjinder Paiz PA-C 02/25/2014 Office visit Cass Arellano MACHINIST SUPERVISOR OUTSIDE 01/02/2014 Office visit Cass Arellano MACHINIST SUPERVISOR OUTSIDE 12/18/2013 Office visit Cass Arellano MACHINIST SUPERVISOR OUTSIDE 09/13/2013 Office visit Brannon Manuel DO 08/27/2013 Office visit Regina Mcnally TRAM DRIVER 08/17/2013 Office visit Ray Tripathi TRAM DRIVER 05/21/2013 Office visit Brannon Jackson DO 05/10/2013 Office visit Anirudh Conway MD 04/26/2013 Office visit Anirudh Conway MD 12/22/2012 Office visit Brannon Jackson DO 12/14/2012 [facility] Sandra Ca MD 12/12/2012 Office visit Brannon Jackson DO 12/12/2012 [facility] Sandra Ca MD 12/06/2012 Office visit Anirudh Conway MD 11/24/2012 Office visit Regina Mcnally TRAM DRIVER 10/12/2012 [facility] Anirudh Conway MD 10/10/2012 Office visit Brannon Jackson DO 09/18/2012 Office visit Anirudh Conway MD 09/01/2012 Office visit Brannon Jackson DO 08/21/2012 Office visit Brannon Jackson DO 08/01/2012 Office visit Brannon Jackson DO 07/11/2012 Office visit Regina Mcnally TRAM DRIVER 06/14/2012 Office visit Anirudh Conway MD 05/25/2012 Office visit Anirudh Conway MD 05/04/2012 Office visit Brannon Jackson DO 12/23/2011 Office visit Anirudh Conway MD 12/16/2011 Office visit Brannon Jackson DO 12/06/2011 Office visit Anirudh Conway MD 11/11/2011 Office visit Brannon Jackson DO 10/28/2011 Office visit Brannon Jackson DO 10/22/2011 [facility] Valery Cerna MD 10/21/2011 [facility] [...]
--- OUTSIDE RECORDS SUMMARY | 2018-10-25 08:13 | XMS REPORT ---
Author Author Brannon Jackson [facility] Address [address] [place], [place] [id number] Care Team Providers Care Marketing Representative Name Role Phone Brannon Jackson PCP Unavailable [...] Multivitamin, Hair, Skin,and Nails one tablet daily Detrol LA 4 mg oral capsule,extended release [...] oral tablet 06/19/2015 TAKE 1 TABLET DAILY Accu-Chek Ana Cristina miscellaneous strip 07/14/2015 test glucose 2 times per day Dx: 250.00 Prozac 20 mg oral capsule 08/28/2015 08/22/2016 take 1 capsule (20 mg) by oral route once daily for 90 days cane miscellaneous device 09/01/2015 use as directed single point mckeon hydrocodone-acetaminophen 10-325 mg oral tablet 10/09/2015 11/08/2015 take 1 tablet by oral route every 6 hours for 30 days alprazolam 0.5 mg oral tablet 10/17/2015 11/16/2015 TAKE ONE TABLET BY MOUTH TWICE DAILY NEEDED amitriptyline 10 mg oral tablet 11/03/2015 02/01/2016 take 1 tablet by oral route once a day (at bedtime) for 90 days Name Start Date Expiration [...] 2 times per day for 7 days [place] Thyroid 120 mg oral tablet 12/14/2012 12/09/2013 [...] 2 times per day for 5 days cyclobenzaprine 10 mg oral tablet 07/02/2015 10/30/2015 take 1 tablet by oral route every 8 hours as needed for 30 days muscle spasm Bactrim DS 800-160 mg oral tablet 08/01/2015 [...] HC BMI BSA BMI Percentile O2 Sat(%) 10/13/2015 3:52:00 PM 148 mmHg 86 mmHg [...] 09/18/2015 12:00 AM OFFICE/OUTPATIENT VISIT EST Reviewed 10/07/2011 12:00 AM C-REACTIVE PROTEIN Reviewed [...] Reviewed 12/13/2011 12:00 AM Kenalog per 10Mg Im-[facility]#[address]-92(Man) Reviewed 12/23/2011 12:00 AM DRAIN/INJ JOINT/BURSA W/O US Reviewed 12/23/2011 12:00 AM Kenalog 40 Mg Im-[facility]#5992-2863-80 Reviewed 05/25/2012 12:00 AM INJ TRIGGER POINT 1/2 MUSCL Reviewed 05/25/2012 12:00 AM Kenalog, Per 10 Mg [facility]#3646-7769-61 Reviewed 06/14/2012 12:00 AM DRAIN/INJ JOINT/BURSA W/O US Reviewed 06/14/2012 12:00 AM Kenalog, Per 10 Mg [facility]#0002-8700-65 Reviewed 07/11/2012 12:00 AM THER/PROPH/DIAG INJ SC/IM Reviewed 07/11/2012 12:00 AM Decadron 1 mg [facility]#[id number] (Manuel) Reviewed 07/11/2012 12:00 AM Depo-Medrol 80 mg [facility]#[id number]-Kugslyfx Reviewed 08/21/2012 12:00 AM ASSAY CARBOXYHB QUANT Reviewed 09/18/2012 12:00 AM DRAIN/INJ JOINT/BURSA W/O US Reviewed 09/18/2012 12:00 AM Kenalog, Per 10 Mg [facility]#1951-1512-40 Reviewed 10/13/2012 12:00 AM COMPREHEN METABOLIC PANEL Reviewed 10/13/2012 12:00 AM LIPID PANEL Reviewed 10/13/2012 12:00 AM GLYCOSYLATED HEMOGLOBIN TEST Reviewed 10/13/2012 12:00 AM MICROALBUMIN SEMIQUANT Reviewed 04/15/2010 12:00 AM MAMMOGRAM SCREENING Reviewed 12/06/2012 12:00 AM DRAIN/INJ JOINT/BURSA W/O US Reviewed 12/06/2012 12:00 AM Kenalog, Per 10 Mg [facility]#5952-0271-40 Reviewed 12/22/2012 12:00 AM TOTAL CORTISOL Reviewed 04/26/2013 12:00 AM DRAIN/INJ JOINT/BURSA W/O US Reviewed 04/26/2013 12:00 AM Kenalog, Per 10 Mg [facility]#7542-8352-31 Reviewed 05/10/2013 12:00 AM DRAIN/INJ JOINT/BURSA W/O US Reviewed 05/10/2013 12:00 AM Kenalog, Per 10 Mg [facility]#9114-7931-02 Reviewed 05/10/2013 12:00 AM DRAIN/INJ JOINT/BURSA W/O US Reviewed 05/10/2013 12:00 AM Kenalog, Per 10 Mg [facility]#3912-8019-15 Reviewed 05/28/2013 12:00 AM MAMMOGRAM SCREENING Reviewed [...] 03/05/2014 12:00 AM Kenalog, Per 10 Mg [facility]#5720-1466-63 Reviewed 04/05/2014 12:00 AM COMPLETE CBC W/AUTO [...] BILI 0.90 mg/dLCALCIUM 9.50 mg/dLeGFR >60 mL/min/1.73 [id number] 18.0 U/L 01/02/2014 10:02 AM GLUCOSE 134.0 [...] 9:26AM Insomnia Feb 16 2011 3:26PM Dermatitis b 2011 3:26PM Otitis Externa, Acute - Right Dec 16 2011 3:26PM Pain in joint; Knee b 2011 11:24AM Fibromyalgia b 2011 11:24AM Lumbago b 2011 11:24AM Cervicalgia Dec 23 2011 11:24AM Osteoarthritis of knee b 2011 [...] 12:09PM Dysuria b 2014 12:09PM Gastroesophageal Reflux b 2014 8:20AM Diabetes Mellitus, Type II b [...] 2015 3:55PM Hypertension Oct 13 2015 3:55PM Payers Insurance Name Company Name Plan Name Plan Number Policy Number Policy Group Number Start Date [employer] [facility] [id number] Wednesday, 2009 [employer] [facility] [id number] Saturday, 2009 History of Encounters Visit Date Visit Type Provider 10/13/2015 Office visit Brannon Jackson DO 09/18/2015 [...] Cass BRAY 10/29/2014 Office visit Cass Arellano FINANCIAL SYSTEMS ADMINISTRATOR 10/02/2014 Office visit Cass Arellano FINANCIAL SYSTEMS ADMINISTRATOR 09/20/2014 Office visit Brannon Manuel DO 09/05/2014 Office visit Cass Arellano FINANCIAL SYSTEMS ADMINISTRATOR 07/29/2014 Office visit Cass Arellano FINANCIAL SYSTEMS ADMINISTRATOR 07/18/2014 Office visit Brannon Manuel DO 07/03/2014 Office visit Rob Joseph CONFERENCE DIRECTOR 06/11/2014 Office visit Cass Arellano FINANCIAL SYSTEMS ADMINISTRATOR 04/29/2014 Office visit Cass Arellano FINANCIAL SYSTEMS ADMINISTRATOR 04/29/2014 Office visit Brannon Manuel DO 04/05/2014 Office visit Harjinder Paiz PA-C 02/25/2014 Office visit Cass Arellano FINANCIAL SYSTEMS ADMINISTRATOR 01/02/2014 Office visit Cass Arellano FINANCIAL SYSTEMS ADMINISTRATOR 12/18/2013 Office visit Cass Arellano FINANCIAL SYSTEMS ADMINISTRATOR 09/13/2013 Office visit Brannon Jackson DO 08/27/2013 Office visit Regina Mcnally CONFERENCE DIRECTOR 08/17/2013 Office visit Ray Tripathi CONFERENCE DIRECTOR 05/21/2013 Office visit Brannon Jackson DO 05/10/2013 Office visit Anirudh Conway MD 04/26/2013 Office visit Anirudh Conway MD 12/22/2012 Office visit Brannon Jackson DO 12/14/2012 [facility] Sandra Ca MD 12/12/2012 Office visit Brannon Jackson DO 12/12/2012 [facility] Sandra Ca MD 12/06/2012 Office visit Anirudh Conway MD 11/24/2012 Office visit Regina Mcnally CONFERENCE DIRECTOR 10/12/2012 [facility] Anirudh Conway MD 10/10/2012 Office visit Brannon Jackson DO 09/18/2012 Office visit Anirudh Conway MD 09/01/2012 Office visit Brannon Jackson DO 08/21/2012 Office visit Brannon Jackson DO 08/01/2012 Office visit Brannon Jackson DO 07/11/2012 Office visit Regina Mcnally CONFERENCE DIRECTOR 06/14/2012 Office visit Anirudh Conway MD 05/25/2012 Office visit Anirudh Conway MD 05/04/2012 Office visit Brannon Jackson DO 12/23/2011 Office visit Anirudh Conway MD 12/16/2011 Office visit Brannon Jackson DO 12/06/2011 Office visit Anirudh Conway MD 11/11/2011 Office visit Brannon Jackson DO 10/28/2011 Office visit Brannon Jackson DO 10/22/2011 [facility] Valery Cerna MD 10/21/2011 [facility] Valery Cerna MD 10/19/2011 Office visit Brannon Jackson DO 10/19/2011 [facility] Anderson Dawkins MD 10/07/2011 Office [...]
--- OUTSIDE RECORDS SUMMARY | 2018-10-25 08:15 | XMS REPORT ---
Author Author Brannon Jackson [facility] Address [address] [place], [place] [id number] Care Team Providers Care Director Child Development Center Name Role Phone Brannon Jackson PCP Brannon [...] (0.5 mg) by oral route once daily losartan-hydrochlorothiazide 100-25 mg oral tablet 07/11/2017 01/02/2019 TAKE 1 TABLET DAILY amlodipine 5 mg oral tablet 09/26/2017 09/21/2018 TAKE 1 TABLET DAILY omeprazole 40 mg oral capsule,delayed release(DR/EC) 09/26/2017 09/21/2018 TAKE 1 CAPSULE DAILY simvastatin 20 mg oral tablet 09/26/2017 09/21/2018 TAKE 1 TABLET ONCE DAILY INTHE EVENING cyclobenzaprine 10 mg oral tablet 09/26/2017 09/21/2018 TAKE 1 TABLET EVERY 8 HOURSAS NEEDED FOR MUSCLE SPASM amitriptyline 10 mg oral tablet 09/26/2017 09/21/2018 TAKE 1 TABLET ONCE A DAY ATBEDTIME Flonase Allergy Relief 50 mcg/actuation nasal spray,suspension 10/05/2017 spray 1 spray (50 mcg) in each nostril by intranasal route once daily Voltaren 1 % topical gel 10/25/2017 apply 2 gram to the affected area(s) by topical route 4 times per day OneTouch Verio miscellaneous strip 11/11/2017 Test glucose 4 times a day Dx :e11.65 gabapentin 300 mg oral capsule 11/11/2017 Take 1 capsule in am and 2 capsules in pm indomethacin 50 mg oral capsule 01/23/2018 take 1 capsule (50 mg) by oral route 3 times per day with food for 90 days Janumet 50-1,000 mg oral tablet 01/23/2018 take 1 tablet by oral route 2 times per day with meals for 90 days estradiol 0.5 mg oral tablet 02/06/2018 TAKE 1 TABLET ONCE DAILY fluoxetine 40 mg oral capsule 03/28/2018 03/23/2019 take 1 capsule by oral route daily for 90 days Vesicare 10 mg oral tablet 03/28/2018 take 1 tablet (10 mg) by oral route once daily hydrocodone-acetaminophen 10-325 mg oral tablet 05/08/2018 06/07/2018 [...] 2 times per day for 7 days [place] Thyroid 120 mg oral tablet 12/14/2012 12/09/2013 [...] cholesterol med and hydroxine while on antibiotic) Discontinued Name Start Date Discontinued Date SIG [...] by oral route 2 times per day tolterodine 4 mg oral capsule,extended release 24hr [...] HC BMI BSA BMI Percentile O2 Sat(%) 03/28/2018 9:32:00 AM 139 mmHg 82 mmHg [...] Reviewed 12/13/2011 12:00 AM Kenalog per 10Mg Im-[facility]#[address]-59(Man) Reviewed 12/23/2011 12:00 AM DRAIN/INJ JOINT/BURSA W/O US Reviewed 12/23/2011 12:00 AM Kenalog 40 Mg Im-[facility]#0253-7747-73 Reviewed 11/19/2016 12:00 AM X-RAY EXAM OF HAND Reviewed 01/19/2017 12:00 AM COMPLETE CBC W/AUTO DIFF WBC Reviewed 01/19/2017 12:00 AM COMPREHEN METABOLIC PANEL Reviewed 01/19/2017 12:00 AM GLYCOSYLATED HEMOGLOBIN TEST Reviewed 05/25/2012 12:00 AM INJ TRIGGER POINT 1/2 MUSCL Reviewed 05/25/2012 12:00 AM Kenalog, Per 10 Mg [facility]#8077-1192-59 Reviewed 06/14/2012 12:00 AM DRAIN/INJ JOINT/BURSA W/O US Reviewed 06/14/2012 12:00 AM Kenalog, Per 10 Mg [facility]#6420-2682-33 Reviewed 05/09/2017 12:00 AM MAMMOGRAPHY SCREENING, DIGITAL Reviewed 07/11/2012 12:00 AM THER/PROPH/DIAG INJ SC/IM Reviewed 07/11/2012 12:00 AM Decadron 1 mg [facility]#[id number] (Manuel) Reviewed 07/11/2012 12:00 AM Depo-Medrol 80 mg [facility]#[id number]-Uzzlzqiz Reviewed 08/21/2012 12:00 AM ASSAY CARBOXYHB QUANT Reviewed 09/01/2017 12:00 AM RADIOLOGIC EXAMINATION KNEE 1/2 VIEWS Reviewed 09/18/2012 12:00 AM DRAIN/INJ JOINT/BURSA W/O US Reviewed 09/18/2012 12:00 AM Kenalog, Per 10 Mg [facility]#0385-4804-91 Reviewed 10/25/2017 12:00 AM RADIOLOGIC EXAMINATION KNEE [...] Kenalog, Per 10 Mg [facility]#7373-5557-90 Reviewed 12/22/2012 12:00 AM TOTAL CORTISOL Reviewed 04/26/2013 12:00 AM DRAIN/INJ JOINT/BURSA W/O US Reviewed 04/26/2013 12:00 AM Kenalog, Per 10 Mg [facility]#4577-7300-82 Reviewed 05/10/2013 12:00 AM DRAIN/INJ JOINT/BURSA W/O US Reviewed 05/10/2013 12:00 AM Kenalog, Per 10 Mg [facility]#2802-9087-55 Reviewed 05/10/2013 12:00 AM DRAIN/INJ JOINT/BURSA W/O US Reviewed 05/10/2013 12:00 AM Kenalog, Per 10 Mg [facility]#3702-2726-80 Reviewed 05/28/2013 12:00 AM MAMMOGRAM SCREENING Reviewed [...] Kenalog, Per 10 Mg [facility]#0566-7461-83 Reviewed 04/05/2014 12:00 AM COMPLETE CBC W/AUTO [...] joint; Knee Feb 2011 4:20PM Fibromyalgia Feb 6 2011 4:20PM [...] Left Hip Dec 12 2014 3:20PM Fatigue Fe2014 3:20PM Diabetes Mellitus, Type II Feb 13 2014 12:09PM Dysuria b 13 2014 12:09PM Gastroesophageal Reflux b 2014 8:20AM Diabetes Mellitus, Type II Feb 2014 8:20AM Hyperlipidemia, mixed b 2014 8:20AM Hypertension Dec 17 2014 8:20AM [...] for breast cancer May 09 2018 12:07PM Payers Insurance Name Company Name Plan Name Plan Number Policy Number Policy Group Number Start Date [facility] Gpa [id number] Saturday, 2015 [employer]cbs [facility] [id number] Saturday, 2009 [employer] [facility] [id number] Wednesday, 2009 History of Encounters Visit Date Visit Type Provider 03/28/2018 Office visit Brannon Jackson DO 12/02/2017 Office visit Brannon Jackson DO 11/11/2017 Office visit Brannonpatrica Simpsonte DO 11/09/2017 Office visit Harjinder Paiz PA-C 10/28/2017 Office visit Lakia Reina PERSONNEL COORDINATOR 10/25/2017 Office visit Regina Mcnally PERSONNEL COORDINATOR 10/05/2017 Office visit Regina Mcnally PERSONNEL COORDINATOR 09/01/2017 Office visit Brannon Manuel DO 06/29/2017 Office visit Karyna Gilbert PERSONNEL COORDINATOR 06/18/2017 Office visit Karyna Gilbert PERSONNEL COORDINATOR 05/09/2017 Office visit Brannon Manuel DO 03/08/2017 Office visit Brannon Manuel DO 01/25/2017 Office visit Brannon Manuel DO 01/19/2017 Office visit Regina Mcnally PERSONNEL COORDINATOR 01/04/2017 Procedures Reagan Bouman DO 12/24/2016 Office visit Brannon Manuel DO 12/23/2016 Surgery Reagan Bouman DO 12/14/2016 Office visit Reagan Bouman DO 11/25/2016 Office visit Brannon Manuel DO 11/19/2016 Office visit Sandra Milton PERSONNEL COORDINATOR 11/02/2016 Office visit Lakia Reina PERSONNEL COORDINATOR 09/09/2016 Office visit Brannon Manuel DO 05/18/2016 [...] Brannon Jackson DO 03/10/2015 Office visit Cass ARCINIEGAP 02/25/2015 Office visit Cass ARCINIEGAP 02/05/2015 Nurse visit Cass ARCINIEGAP 12/17/2014 Hospital Dinesh Zhu MD 12/17/2014 Office visit Brannon Manuel DO 12/12/2014 Office visit Cass Arellano HUMAN RESOURCE MANAGEMENT INSTRUCTOR 10/29/2014 Office visit Cass Arellano HUMAN RESOURCE MANAGEMENT INSTRUCTOR 10/02/2014 Office visit Cass Arellano HUMAN RESOURCE MANAGEMENT INSTRUCTOR 09/20/2014 Office visit Brannon Jackson DO 09/05/2014 Office visit Cass Arellano HUMAN RESOURCE MANAGEMENT INSTRUCTOR 07/29/2014 Office visit Cass Arellano HUMAN RESOURCE MANAGEMENT INSTRUCTOR 07/18/2014 Office visit Brannon Jackson DO 07/03/2014 Office visit Rob Ruiz PERSONNEL COORDINATOR 06/11/2014 Office visit Cass Arellano HUMAN RESOURCE MANAGEMENT INSTRUCTOR 04/29/2014 Office visit Cass Arellano HUMAN RESOURCE MANAGEMENT INSTRUCTOR 04/29/2014 Office visit Brannon Jackson DO 04/05/2014 Office visit Harjinder Paiz PA-C 02/25/2014 Office visit Cass ARCINIEGAP 01/02/2014 Office visit Cass ARCINIEGAP 12/18/2013 Office visit Cass ARCINIEGAP 09/13/2013 Office visit Brannon Jackson DO 08/27/2013 Office visit Regina Mcnally PERSONNEL COORDINATOR 08/17/2013 Office visit Ray Tripathi PERSONNEL COORDINATOR 05/21/2013 Office visit Brannon Jackson DO 05/10/2013 Office visit Anirudh Conway MD 04/26/2013 Office visit Anirudh Conway MD 12/22/2012 Office visit Brannon Jackson DO 12/14/2012 [facility] Sandra Ca MD 12/12/2012 Office visit Brannon Jackson DO 12/12/2012 [facility] Sandra Ca MD 12/06/2012 Office visit Anirudh Conway MD 11/24/2012 Office visit Regina Mcnally PERSONNEL COORDINATOR 10/12/2012 [facility] Anirudh Conway MD 10/10/2012 Office visit Brannon Jackson DO 09/18/2012 Office visit Anirudh Conway MD 09/01/2012 Office visit Brannon Jackson DO 08/21/2012 Office visit Brannon Jackson DO 08/01/2012 Office visit Brannon Jackson DO 07/11/2012 Office visit Regina Mcnally PERSONNEL COORDINATOR 06/14/2012 Office visit Anirudh Conway MD 05/25/2012 Office visit Anirudh Conway MD 05/04/2012 Office visit Brannon Jackson DO 12/23/2011 Office visit Anirudh Conway MD 12/16/2011 Office visit Brannon Jackson DO 12/06/2011 Office visit Anirudh Conway MD 11/11/2011 Office visit Brannon Jackson DO 10/28/2011 Office visit Brannon Jackson DO 10/22/2011 [facility] Valery Cerna MD 10/21/2011 [facility] Valery Cerna MD 10/19/2011 Office visit Brannon Jackson DO 10/19/2011 [facility] Anderson Dawkins MD 10/07/2011 Office visit Brannon Jackson DO 04/27/2011 Office visit Brannon Jackson DO 04/16/2011 Office visit Brannon Jackson DO 12/18/2010 Office visit Brannon Jackson DO 11/17/2010 Office visit Brannon Jackson DO 10/08/2010 Office visit Brannon Jackson DO 08/18/2010 Office visit Regina Mcnally PERSONNEL COORDINATOR 02/03/2010 Office visit Brannon Jackson DO 12/02/2009 Office visit Brannon Jackson DO 06/27/2009 Office visit Brannon Jackson DO
--- OUTSIDE RECORDS SUMMARY | 2018-10-25 08:16 | XMS REPORT ---
Author Author Brannon Jackson [facility] Address [address] [place], [place] [id number] Care Team Providers Care Local Sales Manager Name Role Phone Brannon Jackson PCP Unavailable Allergies and Adverse Reactions Name Reaction Notes Promethazine vomiting Zofran vomiting Plan of Treatment Planned Activity Comments Planned Date Planned Time Plan/Goal C-REACTIVE PROTEIN 05/04/2012 12:00 AM ASSAY OF [...] 12:00 AM MICROALBUMIN QUANTITATIVE 09/20/2014 12:00 AM Medications Active Name Start Date Estimated Completion Date SIG Comments Multivitamin, Hair, Skin,and Nails one tablet daily Simvastatin Oral Tablet 20 mg 06/24/2014 06/19/2015 take 1 tablet (20 mg) by oral route once daily in the evening metformin Oral Tablet 1,000 mg 06/24/2014 06/19/2015 take 1 tablet by oral route 2 times a day for 90 days gabapentin oral capsule 300 mg 06/24/2014 06/19/2015 take 1 capsule by oral route 2 times a day for 90 days losartan-hydrochlorothiazide oral tablet 100-25 mg 06/24/2014 06/19/2015 take 1 tablet by oral route once daily estradiol Oral Tablet 0.5 mg 06/24/2014 06/19/2015 TAKE ONE TABLET BY MOUTH EVERY DAY diclofenac sodium Oral tablet,delayed release (DR/EC) 75 mg 06/24/20142014 take 1 tablet (75 mg) by oral route 2 times a day for 90 days amlodipine Oral Tablet 5 mg 06/24/2014 06/19/2015 take 1 tablet (5 mg) by oral route once daily for 90 days Prozac oral capsule 20 mg 06/25/2014 09/18/2015 take 1 capsule (20 mg) by oral route once daily for 90 days 3 mo supply for mail order through [employer] amitriptyline oral tablet 10 mg 08/29/2014 11/22/2015 take 1 tablet by oral route once a day (at bedtime) for 90 days mail order oxybutynin chloride oral tablet extended release 24hr 10 mg 09/19/20142014 take 1 tablet (10 mg) by oral route once daily for 90 days Accu-Chek Comfort Curve Test miscellaneous strip 09/20/2014 Test glucose 2 times a day Dx: 250.00 Detrol LA oral capsule,extended release 24hr 4 mg 11/11/2014 11/06/2015 take 1 capsule (4 mg) by oral route once daily for 90 days pantoprazole oral tablet,delayed release (DR/EC) 40 mg 12/19/2014 10/21/2015 take 1 tablet (40 mg) by oral route once daily for 102 days hydrocodone-acetaminophen oral tablet 10-325 mg 03/10/2015 04/09/2015 take 1 tablet by oral route every 6 hours as needed for pain for 30 days alprazolam Oral tablet 0.5 mg 03/13/2015 04/12/2015 TAKE ONE TABLET BY MOUTH TWICE DAILY NEEDED Name Start Date Expiration Date SIG Comments DUETACT Oral Tablet 30-4 mg 12/02/2009 12/30/2009 take 1 tablet by oral route once daily for 28 days Bactrim DS Oral Tablet 800-160 mg 08/18/2010 08/28/2010 take 1 tablet by oral route every 12 hours for 10 days Bactroban Topical Cream 2 % 08/18/2010 08/25/2010 apply a small amount to the affected area by topical route 3 times per day for 7 days Bactrim DS Oral Tablet 800-160 mg 04/27/2011 05/07/2011 take 1 tablet by oral route every 12 hours for 10 days ibuprofen Oral Tablet 800 mg 09/28/2011 09/28/2011 TAKE 1 TABLET BY MOUTH THREE TIMES DAILY WITH FOOD Bactrim DS Oral Tablet 800-160 mg 10/11/2011 10/21/2011 take 1 tablet (800- 160 mg) by oral route every 12 hours for 10 days Bactrim DS Oral Tablet 800-160 mg 12/15/2011 12/22/2011 take 1 tablet by oral route 2 times per day for 7 days Cymbalta Oral Capsule, Delayed Release(E.C.) 30 mg 12/23/2011 01/22/2012 take 1 capsule (30 mg) by oral route daily Zithromax Z-Amado Oral tablet 250 mg 07/11/2012 07/16/2012 take 2 tablets (500 mg) by oral route once daily for 1 day then 1 tablet (250 mg) by oral route once daily for 4 days methocarbamol Oral tablet 750 mg 08/01/2012 08/02/2012 take 1 tablet by oral route every 8 hours as needed Bactrim DS Oral tablet 800-160 mg 07/05/2013 07/12/2013 take 1 tablet by oral route 2 times per day for 7 days omeprazole Oral capsule,delayed release(DR/EC) 40 mg 09/04/2013 03/03/2014 take 1 capsule by oral route daily for 30 days [place] Thyroid oral tablet 120 mg 12/14/2012 12/09/2013 take 1 tablet (120 mg) by oral route once daily before breakfast for 90 days trazodone oral tablet 100 mg 12/14/2012 12/09/2013 take 1 tablet (100 mg) by oral route once daily at bedtime Reglan oral tablet 10 mg 04/05/2014 04/10/2014 take 1 tablet (10 mg) by oral route 4 times per day 30 minutes before meals and at bedtime for 5 days Claritin-D 12 Hour oral tablet extended release 12 hr 5-120 mg 04/05/20142013 take 1 tablet by oral route 2 times per day for 15 days Augmentin oral tablet 500-125 mg 09/20/2014 09/27/2014 take 1 tablet by oral route every 12 hours for 7 days Monistat 7 vaginal cream 2 % 10/10/2014 10/17/2014 insert 1 applicatorful by vaginal route once daily at bedtime for 7 days fentanyl transdermal patch 72 hour 12 mcg/hr 10/29/2014 11/28/2014 apply 1 patch (12 mcg/hour) by transdermal route every 72 hours for 30 days amantadine HCl oral tablet 100 mg 11/28/2014 12/03/2014 take 1 tablet (100 mg) by oral route 2 times per day for 5 days Discontinued Name Start Date Discontinued Date SIG Comments Ibuprofen Oral Tablet 800 mg 09/08/2009 02/03/2010 take 1 tablet by oral route TID PRN with food Glimepiride Tablet 4 mg 10/22/2009 12/02/2009 TAKE 1 TABLET BY MOUTH TWICE DAILY cannot afford Plavix Oral Tablet 75 mg 12/02/2009 take 1 tablet (75 mg) by oral route once daily cannot afford Naproxen Oral Tablet 500 mg 12/02/2009 take 1 tablet by oral route 2 times a day cannot afford Metoprolol Tartrate Oral Tablet 100 mg 12/02/2009 take 1 tablet (100 mg) by oral route 2 times per day with meals cannot afford Aspirin Oral Tablet 325 mg 12/22/2012 take 1 tablet (325 mg) by oral route once daily taking Plavix now Simvastatin Oral Tablet 20 mg 12/02/2009 take 1 tablet (20 mg) by oral route once daily in the evening cannot afford Hydrocodone-Acetaminophen Oral Tablet 5-500 mg 12/02/2009 take 1 tablet by oral route every 6 hours as needed for pain cannot afford Metformin Oral Tablet 1,000 mg 12/02/2009 take 1 tablet (1,000 mg) by oral route 2 times per day with morning and evening meals cannot afford Actos Oral Tablet 30 mg 12/02/2009 take 1 tablet (30 mg) by oral route once daily could not afford Flexeril Oral Tablet 10 mg 12/02/2009 no longer needed Niaspan Oral Tablet Sustained Release 500 mg 01/02/2010 11/17/2010 take 1 tablet (500 mg) by oral route once daily at bedtime after a low-fat snack for 30 days Lortab Oral Tablet 5-500 mg 02/24/2010 10/08/2010 take 1 tablet by oral route every 4-6 hours as needed for pain Medrol (Amado) Oral Tablets, Dose Pack 4 mg 03/26/2010 10/08/2010 take as directed Plavix Oral Tablet 75 mg 05/13/2010 10/07/2011 take 1 tablet (75 mg) by oral route daily for 30 days "can't afford it" Metanx Oral Tablet 2.8-2-25 mg 06/18/2010 11/17/2010 take 2 tablets by oral route daily for 30 days bupropion HCl Oral Tablet Sustained Release 24 hr 300 mg 08/28/20102010 1QD - TAKE ONE TABLET BY MOUTH EVERY DAY Crestor Oral Tablet 10 mg 10/07/2010 11/09/2010 take 1 tablet (10 mg) by oral route once daily for 30 days Aleve Oral Tablet 220 mg 04/16/2011 take 1 tablet (220 mg) by oral route every morning Advil PM Oral Capsule 200-25 mg 04/16/2011 take 1 capsule by oral route once a day (at bedtime) Keflex Oral Capsule 500 mg 10/08/2010 11/17/2010 take 1 capsule (500 mg) by oral route every 12 hours Meloxicam Oral Tablet 15 mg 12/18/2010 04/16/2011 take 1 tablet (15 mg) by oral route once daily fluconazole Oral Tablet 100 mg 04/27/2011 10/07/2011 take 1 tablet by oral route daily Toviaz Oral Tablet Extended Release 24 hr 4 mg 05/20/2011 05/24/2011 take 1 tablet (4 mg) by oral route once daily terbinafine Oral Tablet 250 mg 05/20/2011 05/20/2011 take 1 tablet (250 mg) by oral route once daily for 30 days deleted paroxetine HCl Oral Tablet 20 mg 06/18/2011 01/17/2012 take 1 tablet (20 mg) by oral route once daily for 90 days oxybutynin chloride Oral Tablet Extended Rel 24 hr 10 mg 06/25/2011 10/07/2011 take 1 tablet (10 mg) by oral route once daily for 90 days "not taking anymore" terbinafine Oral Tablet 250 mg 09/28/2011 10/07/2011 TAKE ONE TABLET BY MOUTH EVERY DAY glimepiride Oral Tablet 4 mg 10/15/2011 11/11/2011 take 1 tablet by oral route daily for 90 days Levaquin Oral Tablet 500 mg 10/28/2011 11/11/2011 take 1 tablet (500 mg) by oral route once daily prednisone Oral Tablet 10 mg 10/28/2011 12/06/2011 take 1 tablet (10 mg) by oral route once daily Bactrim DS Oral Tablet 800-160 mg 11/23/2011 12/06/2011 take 1 tablet by oral route every 12 hours niacin Oral Capsule, Extended Release 500 mg 12/18/2013 take 1 capsule by oral route daily Vitamin D-3 Oral Tablet 5,000 unit 12/18/2013 take 1 tablet by oral route daily vitamin B12 Oral 12/18/2013 1 tab daily Combivent Inhalation Aerosol 18-103 mcg/Actuation 04/29/2014 inhale 2 puffs by inhalation route 4 times per day /PRN Cortisporin Otic Solution 3.5-10,000-1 mg-unit/mL-% 12/16/2011 08/01/2012 instill 4 drops into right ear by otic route 3 times per day Actos Oral Tablet 30 mg 05/08/2012 12/22/2012 take 1 tablet (30 mg) by oral route once daily for 90 days hypoglycemia Benicar HCT Oral Tablet 40-25 mg 05/08/2012 08/01/2012 take 1 tablet by oral route once daily changed to losartan Lantus Solostar Subcutaneous Insulin Pen 100 unit/mL (3 mL) 05/08/20122012 inject 20 units by subcutaneous route at bedtime hypoglycemia oxybutynin chloride Oral Tablet Extended Rel 24 hr 10 mg 05/08/2012 12/19/2012 take 1 tablet (10 mg) by oral route once daily for 90 days Diflucan Oral Tablet 150 mg 08/01/2012 take 1 tablet (150 mg) by oral route once, repeat in one week. hydrocodone-acetaminophen Oral tablet 7.5-325 mg 10/04/2012 10/04/2012 TAKE ONE TABLET BY MOUTH EVERY 4 TO 6 HOURS NEEDED FOR PAIN deleted Plavix Oral tablet 75 mg 10/17/2012 12/14/2012 take 1 tablet (75 mg) by oral route once daily for 90 days deleted glimepiride Oral tablet 4 mg 10/26/2012 12/22/2012 take 1 tablet (4 mg) by oral route once daily for 90 days hypoglycemia clopidogrel Oral tablet 75 mg 12/14/2012 09/13/2013 take 1 tablet by oral route daily for 90 days "stopped last year" trospium Oral tablet 20 mg 12/19/2012 12/29/2012 take 1 tablet (20 mg) by oral route 2 times per day at least 1 hour before or 2 hours after meals for 90 days Wants to resume Oxybutynin amoxicillin Oral capsule 500 mg 08/17/2013 08/27/2013 take 1 capsule (500 mg ) by oral route every 8 hours for 10 days paroxetine HCl Oral tablet 20 mg 08/27/2013 01/02/2014 take 1 tablet (20 mg) by oral route once daily for 30 days cyclobenzaprine Oral tablet 10 mg 08/27/2013 04/29/2014 TAKE ONE TABLET BY MOUTH THREE TIMES DAILY NEEDED guaifenesin Oral tablet extended release 600 mg 09/13/2013 12/18/2013 take 1 tablet (600 mg) by oral route every 12 hours Cymbalta oral capsule,delayed release(DR/EC) 30 mg 01/02/2014 01/07/2014 take 2 capsules (60 mg) by oral route once daily for 30 days Paxil oral tablet 20 mg 01/24/2014 04/29/2014 take 1 tablet (20 mg) by oral route once daily for 90 days alternative medication prescribed oxybutynin chloride Oral tablet extended release 24hr 10 mg 05/24/20142013 take 1 tablet (10 mg) by oral route once daily for 90 days omeprazole oral capsule,delayed release(DR/EC) 40 mg 08/30/2014 12/19/2014 TAKE 1 CAPSULE BY ORAL ROUTE DAILY FOR 30 DAYS Hysingla ER oral tablet,oral only,ext.rel.24 hr 30 mg 12/12/2014 01/09/2015 One tablet by mouth every 24 hours. expensive Problem List Description Status Onset Depressive Disorder Active Diabetes Mellitus, Type II Active Hyperlipidemia, Mixed Active Hypertension Active Obesity Active Fibromyalgia Active 05/26/2013 Overactive bladder Active 12/18/2014 Osteoarthritis, Left Hip Active 03/10/2015 Left hip pain Active 03/10/2015 Vital Signs Date Time BP-Sys(mm[Hg] BP-Debo(mm[Hg]) HR(bpm) RR(rpm) Temp WT HT HC BMI BSA BMI Percentile O2 Sat(%) 04/01/2015 10:27:00 AM 132 mmHg 78 mmHg [...] drugs in past over 25 yrs ago T-[employer] application [employer] 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 in History of Procedures Date Ordered Description Order Status 10/07/2011 12:00 AM C-REACTIVE PROTEIN Reviewed 10/07/2011 [...] JOINT/BURSA W/O US Reviewed 12/23/2011 12:00 AM DRAIN/INJ JOINT/BURSA W/O US Reviewed 05/25/2012 12:00 AM INJ TRIGGER POINT 1/2 MUSCL Reviewed 06/14/2012 12:00 AM DRAIN/INJ JOINT/BURSA W/O US Reviewed 07/11/2012 12:00 AM THER/PROPH/DIAG INJ SC/IM Reviewed 08/21/2012 12:00 AM ASSAY CARBOXYHB QUANT Reviewed 09/18/2012 12:00 AM DRAIN/INJ JOINT/BURSA W/O US Reviewed 10/13/2012 12:00 AM COMPREHEN METABOLIC PANEL Reviewed 10/13/2012 12:00 AM LIPID PANEL Reviewed 10/13/2012 12:00 AM GLYCOSYLATED HEMOGLOBIN TEST Reviewed 10/13/2012 12:00 AM MICROALBUMIN SEMIQUANT Reviewed 04/15/2010 12:00 AM MAMMOGRAM SCREENING Reviewed 12/06/2012 12:00 AM DRAIN/INJ JOINT/BURSA W/O US Reviewed 12/22/2012 12:00 AM TOTAL CORTISOL Reviewed 04/26/2013 12:00 AM DRAIN/INJ JOINT/BURSA W/O US Reviewed 05/10/2013 12:00 AM DRAIN/INJ JOINT/BURSA W/O US Reviewed 05/10/2013 12:00 AM DRAIN/INJ JOINT/BURSA W/O US Reviewed 05/28/2013 12:00 AM MAMMOGRAM SCREENING Reviewed [...] 12:00 AM X-RAY EXAM OF ABDOMEN Returned 01/02/2014 12:00 AM COMPREHEN METABOLIC PANEL Returned 01/02/2014 12:00 AM COMPLETE CBC W/AUTO DIFF WBC Returned 03/05/2014 12:00 AM DRAIN/INJ JOINT/BURSA W/O US Reviewed 04/05/2014 12:00 AM COMPLETE CBC W/AUTO DIFF WBC Returned 04/05/2014 12:00 AM C-REACTIVE PROTEIN HS Returned 04/05/2014 12:00 AM RBC SED RATE AUTOMATED Returned 10/08/2010 12:00 AM URINALYSIS NONAUTO W/SCOPE Reviewed 10/08/2010 12:00 AM COMPREHEN METABOLIC PANEL Reviewed 10/08/2010 12:00 AM LIPID PANEL Reviewed 10/08/2010 12:00 AM LIPID PANEL Reviewed 10/08/2010 12:00 AM ASSAY THYROID STIM HORMONE Reviewed 10/08/2010 12:00 AM GLYCOSYLATED HEMOGLOBIN TEST Reviewed 10/08/2010 12:00 AM CHEST X-RAY 2VW FRONTAL&LATL Reviewed 04/29/2014 12:00 AM COMPLETE CBC AUTOMATED Reviewed 04/29/2014 12:00 AM GLYCOSYLATED HEMOGLOBIN TEST Reviewed 04/29/2014 12:00 AM ASSAY OF IRON Reviewed 04/29/2014 12:00 AM MAMMOGRAM SCREENING Reviewed 04/29/2014 12:00 AM LIPID PANEL Reviewed 04/29/2014 12:00 AM CHEST X-RAY 2VW FRONTAL&LATL Reviewed 04/29/2014 12:00 AM MICROALBUMIN QUANTITATIVE Reviewed 09/20/2014 12:00 AM COMPREHEN METABOLIC PANEL [...] 12:00 AM URINALYSIS AUTO W/O SCOPE Reviewed 03/10/2015 12:00 AM FIBRIN DEGRADATION QUANT Returned 05/05/2011 12:00 AM MAMMOGRAM SCREENING Reviewed Results Summary Data and Description Results 12/02/2009 [...] 0.03 IRON TOTAL 39.0 ug/dLHGB A1C 7.50 %TSH 2.850 uIU/mLVITAMIN B12 434.0 pg/mLFOLATE 16.70 ng/mL [...] BILI 0.90 mg/dLCALCIUM 9.50 mg/dLeGFR >60 mL/min/1.73 x2TCUDMC 18.0 U/L 01/02/2014 10:02 AM GLUCOSE 134.0 [...] 286 IRON TOTAL 117.0 ug/dLHGB A1C 7.70 % 12/17/2014 12:00 AM Treatment/Therapy intra-articular injection of [...] 9.50 mg/dLeGFR >60 mL/min/1.73 m2HGB A1C 6.30 %COLOR YELLOW APPEARANCE CLEAR SPEC GRAV 1.015 pH [...] m2 03/10/2015 5:06 PM D-DIMER QUANT 0.64 History Of Immunizations Not available. History of [...] Left Hip 03/10/2015 Left hip pain 03/10/2015 Diabetes Mellitus, Type II Nov 17 2010 3:26PM Hypothyroidism, Acquired Nov 17 2010 3:26PM Hyperlipidemia, Mixed Nov 17 2010 3:26PM Depressive Disorder Nov 17 2010 3:26PM Hypertension Nov 17 2010 3:26PM Diabetes Mellitus, Type II Dec 18 2010 9:00AM Hypothyroidism, Acquired Dec 18 2010 9:00AM Hyperlipidemia, Mixed Dec 18 2010 9:00AM Depressive Disorder Dec 18 2010 9:00AM Hypertension Dec 18 2010 9:00AM Osteoarthritis,Shoulder b 2010 9:00AM Pain in joint; Left Hip [...] Feb 2011 3:26PM Pain in joint; Knee b 2011 11:24AM Fibromyalgia Feb 2011 11:24AM Lumbago b 2011 11:24AM Cervicalgia b 2011 11:24AM Osteoarthritis of knee Feb 2011 [...] Left Hip Feb 2014 3:20PM Fatigue Feb 12 2014 3:20PM [...] 11:53AM Leg pain Mar 10 2015 4:19PM Left hip pain Mar 10 2015 4:19PM Osteoarthritis, Left Hip Mar 10 2015 4:19PM Leg pain, anterior, left Mar 11 2015 2:54PM Payers Insurance Name Company Name Plan Name Plan Number Policy Number Policy Group Number [id number] Wednesday, 2009 [facility] [id number] Saturday, 2009 History of Encounters Visit Date Visit Type Provider 04/01/2015 Office visit Brannon Jackson DO 03/10/2015 Office visit Cass ARCINIEGAP 02/25/2015 Office visit Cass BRAY 02/05/2015 Nurse visit Cass ARCINIEGAP 12/17/2014 Office visit Brannon Jackson DO 12/17/2014 [facility] Dinesh Zhu MD 12/12/2014 Office visit Cass ARCINIEGAP 10/29/2014 Office visit Cass ARCINIEGAP 10/02/2014 Office visit Cass ARCINIEGAP 09/20/2014 Office visit Brannon Jackson DO 09/05/2014 Office visit Cass ARCINIEGAP 07/29/2014 Office visit Cass ARCINIEGAP 07/18/2014 Office visit Brannon Jackson DO 07/03/2014 Office visit Rob Ruiz NIGHT SUPERVISOR 06/11/2014 Office visit Cass ARCINIEGAP 04/29/2014 Office visit Brannon Jackson DO 04/29/2014 Office visit Cass ARCINIEGAP 04/05/2014 Office visit Harjinder Paiz PA-C 02/25/2014 Office visit Cass ARCINIEGAP 01/02/2014 Office visit Cass ARCINIEGAP 12/18/2013 Office visit Cass BRAY 09/13/2013 Office visit Brannon Jackson DO 08/27/2013 Office visit Regina Mcnally NIGHT SUPERVISOR 08/17/2013 Office visit Ray Tripathi NIGHT SUPERVISOR 05/21/2013 Office visit Brannon Jackson DO 05/10/2013 Office visit Anirudh Conway MD 04/26/2013 Office visit Anirudh Conway MD 12/22/2012 Office visit Brannon Jackson DO 12/14/2012 [facility] Sandra Ca MD 12/12/2012 Office visit Brannon Jackson DO 12/12/2012 [facility] Sandra Ca MD 12/06/2012 Office visit Anirudh Conway MD 11/24/2012 Office visit Regina Mcnally NIGHT SUPERVISOR 10/12/2012 [facility] Anirudh Conway MD 10/10/2012 Office visit Brannon Jackson DO 09/18/2012 Office visit Anirudh Conway MD 09/01/2012 Office visit Brannon Jackson DO 08/21/2012 Office visit Brannon Jackson DO 08/01/2012 Office visit Brannon Jackson DO 07/11/2012 Office visit Regina Mcnally NIGHT SUPERVISOR 06/14/2012 Office visit Anirudh Conway MD 05/25/2012 Office visit Anirudh Conway MD 05/04/2012 Office visit Brannon Jackson DO 12/23/2011 Office visit Anirudh Conway MD 12/16/2011 Office visit Brannon Jackson DO 12/06/2011 Office visit Anirudh Conway MD 11/11/2011 Office visit Brannon Jackson DO 10/28/2011 Office visit Brannon Jackson DO 10/22/2011 [facility] Valery Cerna MD 10/21/2011 [facility] Valery Cerna MD 10/19/2011 Office visit Brannon Jackson DO 10/19/2011 [facility] Anderson Dawkins MD 10/07/2011 Office visit Brannon Jackson DO 04/27/2011 Office visit Brannon Jackson DO 04/16/2011 Office visit Brannon Jackson DO 12/18/2010 Office visit Brannon Jackson DO 11/17/2010 Office visit Brannon Jackson DO 10/08/2010 Office visit Brannon Jackson DO 08/18/2010 Office visit Regina Mcnally NIGHT SUPERVISOR 02/03/2010 Office visit Brannon Jackson DO 12/02/2009 Office visit Brannon Jackson DO 06/27/2009 Office visit Brannon Jackson DO
--- OUTSIDE RECORDS SUMMARY | 2018-10-25 08:18 | XMS REPORT ---
Author Author Brannon Jackson [facility] Address [address] [place], [place] [id number] Care Team Providers Care Automotive Fuel Systems Converter Name Role Phone Brannon Jackson PCP Unavailable [...] 12:00 AM MICROALBUMIN QUANTITATIVE 09/20/2014 12:00 AM COMPLETE CBC W/AUTO DIFF WBC 02/25/2015 12:00 AM RBC SED RATE AUTOMATED 02/25/2015 12:00 AM C-REACTIVE PROTEIN 02/25/2015 12:00 AM COMPREHEN METABOLIC PANEL 02/25/2015 12:00 AM X-RAY EXAM OF HIPS 02/25/2015 12:00 AM Medications Active Name Start Date [...] 3 mo supply for mail order through [employer] amitriptyline oral tablet 10 mg 08/29/2014 11/22/2015 [...] 102 days hydrocodone-acetaminophen oral tablet 10-325 mg 02/05/2015 03/07/2015 take 1 tablet by oral route every 8 hours for 30 days alprazolam Oral tablet 0.5 mg 02/07/2015 03/09/2015 TAKE ONE TABLET BY MOUTH TWICE DAILY [...] by oral route daily for 30 days [place] Thyroid oral tablet 120 mg 12/14/2012 12/09/2013 [...] Fibromyalgia Active 05/26/2013 Overactive bladder Active 12/18/2014 Vital Signs Date Time BP-Sys(mm[Hg] BP-Debo(mm[Hg]) HR(bpm) RR(rpm) Temp WT HT HC BMI BSA BMI Percentile O2 Sat(%) 02/25/2015 11:48:00 AM 142 mmHg 76 mmHg [...] 12/13/2014 12:00 AM URINALYSIS AUTO W/SCOPE Reviewed 04/16/2011 12:00 AM X-RAY EXAM OF HIP Reviewed 04/16/2011 12:00 AM URINALYSIS AUTO W/O SCOPE Reviewed 04/22/2011 12:00 AM URINALYSIS AUTO W/O SCOPE Reviewed 05/05/2011 12:00 AM MAMMOGRAM SCREENING Reviewed Results [...] BILI 0.90 mg/dLCALCIUM 9.50 mg/dLeGFR >60 mL/min/1.73 x2DUIVGP 18.0 U/L 01/02/2014 10:02 AM GLUCOSE 134.0 [...] TOTAL 117.0 ug/dLHGB A1C 7.70 % 12/17/2014 8:00 AM TRIGLYCERIDES 87.0 mg/dLCHOLESTEROL 155.0 [...] NEGATIVE YEAST NEGATIVE MICROALBUMIN UR 7.0 ug/mL History Of Immunizations Not available. History of [...] Shortness of breath Oct 08 2010 3:29PM Diabetes Mellitus, Type II Nov 17 2010 3:26PM Hypothyroidism, Acquired Nov 17 2010 3:26PM Hyperlipidemia, Mixed Nov 17 2010 3:26PM Depressive Disorder Nov 17 2010 3:26PM Hypertension Nov 17 2010 3:26PM Diabetes Mellitus, Type II Dec 18 2010 9:00AM Hypothyroidism, Acquired Dec 18 2010 9:00AM Hyperlipidemia, Mixed Dec 18 2010 9:00AM Depressive Disorder Dec 18 2010 9:00AM Hypertension b 2010 9:00AM Osteoarthritis,Shoulder Feb 2010 9:00AM Pain [...] Insomnia Feb 16 2011 3:26PM Dermatitis Feb 2011 3:26PM Otitis Externa, Acute - Right b 2011 3:26PM Pain in joint; Knee b 2011 11:24AM Fibromyalgia Feb 2011 11:24AM Lumbago b 2011 11:24AM Cervicalgia b 2011 11:24AM Osteoarthritis of knee Dec 23 [...] chronic, left Worsening Feb 25 2015 11:53AM Payers Insurance Name Company Name Plan Name Plan Number Policy Number Policy Group Number Start Date [facility] [id number] Wednesday, 2009 [facility] [id number] Saturday, 2009 History of Encounters Visit Date Visit Type Provider 02/25/2015 Office visit Cass BRAY 02/05/2015 Nurse visit Cass BRAY 12/17/2014 Office visit Brannon Manuel DO 12/17/2014 [facility] Dinesh Zhu MD 12/12/2014 Office visit Cass Arellano HUMAN RESOURCES RECEPTIONIST 10/29/2014 Office visit Cass Arellano HUMAN RESOURCES RECEPTIONIST 10/02/2014 Office visit Cass Arellano HUMAN RESOURCES RECEPTIONIST 09/20/2014 Office visit Brannon Manuel DO 09/05/2014 Office visit Cass Arellano HUMAN RESOURCES RECEPTIONIST 07/29/2014 Office visit Cass Arellano HUMAN RESOURCES RECEPTIONIST 07/18/2014 Office visit Brannon Manuel DO 07/03/2014 Office visit Rob Ruiz MANPOWER DEVELOPMENT SPECIALIST MANAGER 06/11/2014 Office visit Cass Arellano HUMAN RESOURCES RECEPTIONIST 04/29/2014 Office visit Brannon Manuel DO 04/29/2014 Office visit Cass Arellano HUMAN RESOURCES RECEPTIONIST 04/05/2014 Office visit Harjinder Paiz PA-C 02/25/2014 Office visit Cass Arellano HUMAN RESOURCES RECEPTIONIST 01/02/2014 Office visit Cass Arellano HUMAN RESOURCES RECEPTIONIST 12/18/2013 Office visit Cass Arellano HUMAN RESOURCES RECEPTIONIST 09/13/2013 Office visit Brannon Jackson DO 08/27/2013 Office visit Regina Mcnally MANPOWER DEVELOPMENT SPECIALIST MANAGER 08/17/2013 Office visit Ray Tripathi MANPOWER DEVELOPMENT SPECIALIST MANAGER 05/21/2013 Office visit Brannon Jackson DO 05/10/2013 Office visit Anirudh Conway MD 04/26/2013 Office visit Anirudh Conway MD 12/22/2012 Office visit Brannon Jackson DO 12/14/2012 [facility] Sandra Ca MD 12/12/2012 Office visit Brannon Jackson DO 12/12/2012 [facility] Sandra Ca MD 12/06/2012 Office visit Anirudh Conway MD 11/24/2012 Office visit Regina Mcnally MANPOWER DEVELOPMENT SPECIALIST MANAGER 10/12/2012 [facility] Anirudh Conway MD 10/10/2012 Office visit Brannon Jackson DO 09/18/2012 Office visit Anirudh Conway MD 09/01/2012 Office visit Brannon Jackson DO 08/21/2012 Office visit Brannon Jackson DO 08/01/2012 Office visit Brannon Jackson DO 07/11/2012 Office visit Regina Mcnally MANPOWER DEVELOPMENT SPECIALIST MANAGER 06/14/2012 Office visit Anirudh Conway MD 05/25/2012 Office visit Anirudh Conway MD 05/04/2012 Office visit Brannon Jackson DO 12/23/2011 Office visit Anirudh Conway MD 12/16/2011 Office visit Brannon Jackson DO 12/06/2011 Office visit Anirudh Conway MD 11/11/2011 Office visit Brannon Jackson DO 10/28/2011 Office visit Brannon Jackson DO 10/22/2011 [facility] Valery Cerna MD 10/21/2011 [facility] Valery Cerna MD 10/19/2011 Office visit Brannon Jackson DO 10/19/2011 [facility] Anderson Dawkins MD 10/07/2011 [...]
--- OUTSIDE RECORDS SUMMARY | 2018-10-25 08:20 | XMS REPORT ---
Author Author Brannon Jackson [facility] Address [address] [place], [place] [id number] Care Team Providers Care Multimedia Producer Name Role Phone Brannon Jackson PCP Brannon [...] 2 times per day for 7 days [place] Thyroid 120 mg oral tablet 12/14/2012 12/09/2013 [...] route once daily for 90 days Medrol (Aamdo) 4 mg oral tablets,dose pack 11/09/2017 03/28/2018 [...] Reviewed 12/13/2011 12:00 AM Kenalog per 10Mg Im-G[facility]#[address]-10(Man) Reviewed 12/23/2011 12:00 AM DRAIN/INJ JOINT/BURSA W/O US Reviewed 12/23/2011 12:00 AM Kenalog 40 Mg Im-Ndc#3550-1749-58 Reviewed 11/19/2016 12:00 AM X-RAY EXAM OF HAND Reviewed 01/19/2017 12:00 AM COMPLETE CBC W/AUTO DIFF WBC Reviewed 01/19/2017 12:00 AM COMPREHEN METABOLIC PANEL Reviewed 01/19/2017 12:00 AM GLYCOSYLATED HEMOGLOBIN TEST Reviewed 05/25/2012 12:00 AM INJ TRIGGER POINT 1/2 MUSCL Reviewed 05/25/2012 12:00 AM Kenalog, Per 10 Mg ND#3780-0504-92 Reviewed 06/14/2012 12:00 AM DRAIN/INJ JOINT/BURSA W/O US Reviewed 06/14/2012 12:00 AM Kenalog, Per 10 Mg NDC#4602-1808-44 Reviewed 05/09/2017 12:00 AM MAMMOGRAPHY SCREENING, DIGITAL Reviewed 07/11/2012 12:00 AM THER/PROPH/DIAG INJ SC/IM Reviewed 07/11/2012 12:00 AM Decadron 1 mg NDC#[id number] (Manuel) Reviewed 07/11/2012 12:00 AM Depo-Medrol 80 mg [facility]#[id number]-Feahluvg Reviewed 08/21/2012 12:00 AM ASSAY CARBOXYHB QUANT Reviewed 09/01/2017 12:00 AM RADIOLOGIC EXAMINATION KNEE 1/2 VIEWS Reviewed 09/18/2012 12:00 AM DRAIN/INJ JOINT/BURSA W/O US Reviewed 09/18/2012 12:00 AM Kenalog, Per 10 Mg [facility]#6169-5828-94 Reviewed 10/25/2017 12:00 AM RADIOLOGIC EXAMINATION KNEE [...] 12/06/2012 12:00 AM Kenalog, Per 10 Mg [facility]#5699-2091-58 Reviewed 12/22/2012 12:00 AM TOTAL CORTISOL Reviewed 04/26/2013 12:00 AM DRAIN/INJ JOINT/BURSA W/O US Reviewed 04/26/2013 12:00 AM Kenalog, Per 10 Mg [facility]#2211-3191-25 Reviewed 05/10/2013 12:00 AM DRAIN/INJ JOINT/BURSA W/O US Reviewed 05/10/2013 12:00 AM Kenalog, Per 10 Mg [facility]#2879-0502-27 Reviewed 05/10/2013 12:00 AM DRAIN/INJ JOINT/BURSA W/O US Reviewed 05/10/2013 12:00 AM Kenalog, Per 10 Mg [facility]#0828-7264-20 Reviewed 05/28/2013 12:00 AM MAMMOGRAM SCREENING Reviewed [...] 03/05/2014 12:00 AM Kenalog, Per 10 Mg [facility]#8254-5171-68 Reviewed 04/05/2014 12:00 AM COMPLETE CBC W/AUTO [...] Number Policy Group Number Start Date [facility] Gpa [id number] Saturday, 2015 [employer] [facility] [id number] Saturday, 2009 [employer] [facility] [id number] Wednesday, 2009 History of Encounters Visit Date Visit Type Provider 03/28/2018 Office visit Brannon Jackson DO 12/02/2017 Office visit Brannon Jackson DO 11/11/2017 Office visit Brannonpatrica Simpsonte DO 11/09/2017 Office visit Harjinder Paiz PA-C 10/28/2017 Office visit Lakia Reina LUMP MAKER 10/25/2017 Office visit Regina Mcnally LUMP MAKER 10/05/2017 Office visit Regina Mcnally LUMP MAKER 09/01/2017 Office visit Brannon Manuel DO 06/29/2017 Office visit Karyna Gilbert LUMP MAKER 06/18/2017 Office visit Karyna Gilbert LUMP MAKER 05/09/2017 Office visit Brannon Manuel DO 03/08/2017 Office visit Brannon Manuel DO 01/25/2017 Office visit Brannon Manuel DO 01/19/2017 Office visit Regina Mcnally LUMP MAKER 01/04/2017 Procedures Reagan Bouman DO 12/24/2016 Office visit Brannon Manuel DO 12/23/2016 Surgery Reagan Bouman DO 12/14/2016 Office visit Reagan Bouman DO 11/25/2016 Office visit Brannon Manuel DO 11/19/2016 Office visit Sandra Milton LUMP MAKER 11/02/2016 Office visit Lakia Reina LUMP MAKER 09/09/2016 Office visit Brannon Manuel DO 05/18/2016 [...] visit Cass BRAY 05/15/2015 Office visit Brannon Manule DO 05/08/2015 Nurse visit Cass BRAY 04/28/2015 Office visit 04/28/2015 Office visit Brannon Jackson DO 04/09/2015 Office visit Cass BRAY 04/01/2015 Procedures Dinesh Zhu MD 04/01/2015 Office visit Brannon Jackson DO 03/10/2015 Office visit Cass ARCINIEGAP 02/25/2015 Office visit Cass ARCINIEGAP 02/05/2015 Nurse visit Cass ARCINIEGAP 12/17/2014 Hospital Dinesh Zhu MD 12/17/2014 Office visit Brannon Manuel DO 12/12/2014 Office visit Cass Arellano TAX SERVICES PROFESSIONAL 10/29/2014 Office visit Cass Arellano TAX SERVICES PROFESSIONAL 10/02/2014 Office visit Cass Arellano TAX SERVICES PROFESSIONAL 09/20/2014 Office visit Brannon Jackson DO 09/05/2014 Office visit Cass Arellano TAX SERVICES PROFESSIONAL 07/29/2014 Office visit Cass Arellano TAX SERVICES PROFESSIONAL 07/18/2014 Office visit Brannon Jackson DO 07/03/2014 Office visit Rob Ruiz LUMP MAKER 06/11/2014 Office visit Cass Arellano TAX SERVICES PROFESSIONAL 04/29/2014 Office visit Cass Arellano TAX SERVICES PROFESSIONAL 04/29/2014 Office visit Brannon Jackson DO 04/05/2014 Office visit Harjinder Paiz PA-C 02/25/2014 Office visit Cass ARCINIEGAP 01/02/2014 Office visit Cass ARCINIEGAP 12/18/2013 Office visit Cass ARCINIEGAP 09/13/2013 Office visit Brannon Jackson DO 08/27/2013 Office visit Regina Mcnally LUMP MAKER 08/17/2013 Office visit Ray Tripathi LUMP MAKER 05/21/2013 Office visit Brannon Jackson DO 05/10/2013 Office visit Anirudh Conway MD 04/26/2013 Office visit Anirudh Conway MD 12/22/2012 Office visit Brannon Jackson DO 12/14/2012 [facility] Sandra Ca MD 12/12/2012 Office visit Brannon Jackson DO 12/12/2012 [facility] Sandra Ca MD 12/06/2012 Office visit Anirudh Conway MD 11/24/2012 Office visit Regina Mcnally LUMP MAKER 10/12/2012 [facility] Anirduh Conway MD 10/10/2012 Office visit Brannon Jackson DO 09/18/2012 Office visit Anirudh Conway MD 09/01/2012 Office visit Brannon Jackson DO 08/21/2012 Office visit Brannon Jackson DO 08/01/2012 Office visit Brannon Jackson DO 07/11/2012 Office visit Regina Mcnally LUMP MAKER 06/14/2012 Office visit Anirudh Conway MD 05/25/2012 Office visit Anirudh Conway MD 05/04/2012 Office visit Brannon Jackson DO 12/23/2011 Office visit Anirudh Conway MD 12/16/2011 Office visit Brannon Jackson DO 12/06/2011 Office visit Anirudh Conway MD 11/11/2011 Office visit Brannon Jackson DO 10/28/2011 Office visit Brannon Jackson DO 10/22/2011 [facility] Valery Cerna MD 10/21/2011 [facility] Valery Cerna MD 10/19/2011 Office visit Brannon Jackson DO 10/19/2011 [facility] Anderson Dawkins MD 10/07/2011 Office visit Brannon Jackson DO 04/27/2011 Office visit Brannon Jackson DO 04/16/2011 Office visit Brannon Jackson DO 12/18/2010 Office visit Brannon Jackson DO 11/17/2010 Office visit Brannon Jackson DO 10/08/2010 Office visit Brannon Jackson DO 08/18/2010 Office visit Regina Mcnally LUMP MAKER 02/03/2010 Office visit Brannon Jackson DO 12/02/2009 Office visit Brannon Jackson DO 06/27/2009 Office visit Brannon Jackson DO
--- OUTSIDE RECORDS SUMMARY | 2018-10-25 08:23 | XMS REPORT ---
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 Name Role Phone Brannon Jackson PCP Unavailable [...] oral route once daily in the evening OneArtemuch Verio miscellaneous strip 02/03/2017 Test glucose 4 [...] (0.5 mg) by oral route once daily hydrocortisone valerate 0.2 % topical cream 05/20/2017 apply a thin layer to the affected area(s) by topical route 3 times per day hydroxyzine pamoate 25 mg oral capsule 06/29/2017 take 1 capsule (25 mg) by oral route at HS x 10 days losartan-hydrochlorothiazide 100-25 mg oral tablet 07/11/2017 01/02/2019 TAKE 1 TABLET DAILY Tivorbex 40 mg oral capsule 09/21/2017 take 1 capsule (40 mg) by oral route 3 times per for 90 days Name Start Date Expiration [...] 2 times per day for 7 days [place] Thyroid 120 mg oral tablet 12/14/2012 12/09/2013 [...] mg) po at HS x 7 days hydrocodone-acetaminophen 10-325 mg oral tablet 08/04/2017 09/03/2017 take 1 tablet by oral route every 6 hours for 30 days Discontinued Name Start Date Discontinued Date [...] once leave on 8-14 hr, then bathe1 Problem List Description Status Onset Depressive Disorder [...] HC BMI BSA BMI Percentile O2 Sat(%) 09/01/2017 1:26:00 PM 130 mmHg 88 mmHg [...] per 10Mg Im-[facility]#[address]-64(Man) Reviewed 12/23/2011 12:00 AM DRAIN/INJ JOINT/BURSA W/O US Reviewed 12/23/2011 12:00 AM Kenalog 40 Mg Im-[facility]#0274-4679-16 Reviewed 11/19/2016 12:00 AM X-RAY EXAM OF HAND Reviewed 01/19/2017 12:00 AM COMPLETE CBC W/AUTO DIFF WBC Reviewed 01/19/2017 12:00 AM COMPREHEN METABOLIC PANEL Reviewed 01/19/2017 12:00 AM GLYCOSYLATED HEMOGLOBIN TEST Reviewed 05/25/2012 12:00 AM INJ TRIGGER POINT 1/2 MUSCL Reviewed 05/25/2012 12:00 AM Kenalog, Per 10 Mg [facility]#6377-0518-91 Reviewed 06/14/2012 12:00 AM DRAIN/INJ JOINT/BURSA W/O US Reviewed 06/14/2012 12:00 AM Kenalog, Per 10 Mg [facility]#9892-2434-07 Reviewed 05/09/2017 12:00 AM MAMMOGRAPHY SCREENING, DIGITAL Reviewed 07/11/2012 12:00 AM THER/PROPH/DIAG INJ SC/IM Reviewed 07/11/2012 12:00 AM Decadron 1 mg [facility]#[id number] (Manuel) Reviewed 07/11/2012 12:00 AM Depo-Medrol 80 mg [facility]#[id number]-Hpziijkm Reviewed 08/21/2012 12:00 AM ASSAY CARBOXYHB QUANT Reviewed 09/01/2017 12:00 AM RADIOLOGIC EXAMINATION KNEE 1/2 VIEWS Reviewed 09/18/2012 12:00 AM DRAIN/INJ JOINT/BURSA W/O US Reviewed 09/18/2012 12:00 AM Kenalog, Per 10 Mg [facility]#5768-1976-87 Reviewed 10/13/2012 12:00 AM COMPREHEN METABOLIC PANEL Reviewed 10/13/2012 12:00 AM LIPID PANEL Reviewed 10/13/2012 12:00 AM GLYCOSYLATED HEMOGLOBIN TEST Reviewed 10/13/2012 12:00 AM MICROALBUMIN SEMIQUANT Reviewed 04/15/2010 12:00 AM MAMMOGRAM SCREENING Reviewed 12/06/2012 12:00 AM DRAIN/INJ JOINT/BURSA W/O US Reviewed 12/06/2012 12:00 AM Kenalog, Per 10 Mg [facility]#0818-9413-34 Reviewed 12/22/2012 12:00 AM TOTAL CORTISOL Reviewed 04/26/2013 12:00 AM DRAIN/INJ JOINT/BURSA W/O US Reviewed 04/26/2013 12:00 AM Kenalog, Per 10 Mg [facility]#4301-6797-13 Reviewed 05/10/2013 12:00 AM DRAIN/INJ JOINT/BURSA W/O US Reviewed 05/10/2013 12:00 AM Kenalog, Per 10 Mg [facility]#0715-5118-89 Reviewed 05/10/2013 12:00 AM DRAIN/INJ JOINT/BURSA W/O US Reviewed 05/10/2013 12:00 AM Kenalog, Per 10 Mg [facility]#7391-5457-08 Reviewed 05/28/2013 12:00 AM MAMMOGRAM SCREENING Reviewed [...] 03/05/2014 12:00 AM Kenalog, Per 10 Mg [facility]#8708-1079-99 Reviewed 04/05/2014 12:00 AM COMPLETE CBC W/AUTO [...] Type II Feb 2014 8:20AM Hyperlipidemia, mixed Dec 17 2014 8:20AM Hypertension Feb 2014 8:20AM Overactive [...] in left knee Sep 01 2017 1:27PM Payers Insurance Name Company Name Plan Name Plan Number Policy Number Policy Group Number Start Date [facility] [id number] Saturday, 2015 [employer] [facility] [id number] Saturday, 2009 [employer] [facility] [place] [id number] Wednesday, 2009 History of Encounters Visit Date Visit Type Provider 09/01/2017 Office visit Brannon Jackson DO 06/29/2017 Office visit Karyna Gilbert VEGETABLES COOK 06/18/2017 Office visit Karyna Gilbert VEGETABLES COOK 05/09/2017 Office visit Brannon Jackson DO 03/08/2017 Office visit Brannon Jackson DO 01/25/2017 Office visit Brannon Jackson DO 01/19/2017 Office visit Regina Mcnally VEGETABLES COOK 01/04/2017 Procedures Reagan Lehman DO 12/24/2016 Office visit Brannon Jackson DO 12/23/2016 Surgery Reagan Lehman DO 12/14/2016 Office visit Reagan Lehman DO 11/25/2016 Office visit Brannon Jackson DO 11/19/2016 Office visit Sandra Yoan VEGETABLES COOK 11/02/2016 Office visit Lakia Reina VEGETABLES COOK 09/09/2016 Office visit Brannon Jackson DO 05/18/2016 Office visit Brannon Manuel DO [...] John Zhu MD 12/17/2014 Office visit Brannon Tidwellhite DO 12/12/2014 Office visit Cass BRAY 10/29/2014 Office visit Cass BRAY 10/02/2014 Office visit Cass BRAY 09/20/2014 Office visit Brannon Manuel DO 09/05/2014 Office visit Cass BRAY 07/29/2014 Office visit Cass BRAY 07/18/2014 Office visit Brannon Manuel DO 07/03/2014 Office visit Rob Ruiz APRN 06/11/2014 Office visit Cass Arellano CAM MILLING MACHINE OPERATOR 04/29/2014 Office visit Cassrosamaria Arellano CAM MILLING MACHINE OPERATOR 04/29/2014 Office visit Brannon Manuel DO 04/05/2014 Office visit Harjinder Paiz PA-C 02/25/2014 Office visit Cass Arellano CAM MILLING MACHINE OPERATOR 01/02/2014 Office visit Cass Arellano CAM MILLING MACHINE OPERATOR 12/18/2013 Office visit Cass MMonse Arellano CAM MILLING MACHINE OPERATOR 09/13/2013 Office visit Brannon Jackson DO 08/27/2013 Office visit Regina Mcnally VEGETABLES COOK 08/17/2013 Office visit Ray Tripathi VEGETABLES COOK 05/21/2013 Office visit Brannon Jackson DO 05/10/2013 Office visit Anirudh Conway MD 04/26/2013 Office visit Anirudh Conway MD 12/22/2012 Office visit Brannon Jackson DO 12/14/2012 [facility] Sandra Ca MD 12/12/2012 Office visit Brannon Jackson DO 12/12/2012 [facility] Sandra Ca MD 12/06/2012 Office visit Anirudh Conway MD 11/24/2012 Office visit Regina Mcnally VEGETABLES COOK 10/12/2012 [facility] Anirudh Conway MD 10/10/2012 Office visit Brannon Jackson DO 09/18/2012 Office visit Anirudh Conway MD 09/01/2012 Office visit Brannon Jackson DO 08/21/2012 Office visit Brannon Jackson DO 08/01/2012 Office visit Brannon Jackson DO 07/11/2012 Office visit Regina Mcnally VEGETABLES COOK 06/14/2012 Office visit Anirudh Conway MD 05/25/2012 Office visit Anirudh Conway MD 05/04/2012 Office visit Brannon Jackson DO 12/23/2011 Office visit Anirudh Conway MD 12/16/2011 Office visit Brannon Jackson DO 12/06/2011 Office visit Anirudh Conway MD 11/11/2011 Office visit Brannon Jackson DO 10/28/2011 Office visit Brannon Jackson DO 10/22/2011 [facility] Valery Cerna MD 10/21/2011 [facility] Valery Cerna MD 10/19/2011 Office visit Brannon Jackson DO 10/19/2011 [facility] Anderson Dawkins MD 10/07/2011 Office visit Brannon [...]
--- OUTSIDE RECORDS SUMMARY | 2018-10-25 08:25 | XMS REPORT ---
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 Name Role Phone Brannon Jackson PCP Unavailable Brannon Jackson PreferredProvider Unavailable Allergies and Adverse Reactions Name Reaction Notes Promethazine vomiting Zofran vomiting Plan of Treatment Planned Activity Comments Planned Date Planned Time Plan/Goal MRI pelvis and hip left wo contrast 08/01/2015 12:00 AM MRI THORACIC SPINE W/O CONTRAST 12/15/2016 12:00 AM MRI LUMBAR SPINE W/O CONTRAST 12/15/2016 12:00 AM Hemoglobin A1c measurement 05/09/2017 12:00 AM Lipid panel 05/09/2017 12:00 AM CMP 05/09/2017 12:00 AM VITAMIN B12 05/09/2017 12:00 AM MICROALBUMIN UR RANDOM 05/09/2017 12:00 AM Ganglion cyst right hand 12/14/2016 2:30 PM Medications Active Name Start Date Estimated Completion Date SIG Comments Multivitamin, Hair, Skin,and Nails one tablet daily cane miscellaneous device 09/01/2015 use as directed single point mckeon aspirin 325 mg oral tablet take 1 tablet (325 mg) by oral route once daily amlodipine 5 mg oral tablet 01/18/2017 01/13/2018 [...] route every 6 hours for 30 days estradiol 0.5 mg oral tablet 05/09/2017 take 1 tablet (0.5 mg) by oral route once daily Tivorbex 40 mg oral capsule 05/09/2017 05/04/2018 take 1 capsule (40 mg) by oral route 2 times per for 90 days diphenhydramine HCl 50 mg oral capsule 05/09/2017 take 1 capsule (50 mg) by oral route every 6 hours as needed hydrocortisone valerate 0.2 % topical cream 05/20/2017 apply a thin layer to the affected area(s) by topical route 3 times per day Name Start Date Expiration Date SIG Comments [...] 2 times per day for 7 days [place] Thyroid 120 mg oral tablet 12/14/2012 12/09/2013 [...] HC BMI BSA BMI Percentile O2 Sat(%) 05/09/2017 8:24:00 AM 154 mmHg 88 mmHg [...] 12/13/2011 12:00 AM Kenalog per 10Mg Im-[facility]#[address]-38(Man) Reviewed 12/23/2011 12:00 AM DRAIN/INJ JOINT/BURSA W/O US Reviewed 12/23/2011 12:00 AM Kenalog 40 Mg Im-[facility]#3272-8485-88 Reviewed 11/19/2016 12:00 AM X-RAY EXAM OF HAND Reviewed 01/19/2017 12:00 AM COMPLETE CBC W/AUTO DIFF WBC Reviewed 01/19/2017 12:00 AM COMPREHEN METABOLIC PANEL Reviewed 01/19/2017 12:00 AM GLYCOSYLATED HEMOGLOBIN TEST Reviewed 05/25/2012 12:00 AM INJ TRIGGER POINT 1/2 MUSCL Reviewed 05/25/2012 12:00 AM Kenalog, Per 10 Mg [facility]#8623-0050-21 Reviewed 06/14/2012 12:00 AM DRAIN/INJ JOINT/BURSA W/O US Reviewed 06/14/2012 12:00 AM Kenalog, Per 10 Mg [facility]#0438-1382-72 Reviewed 05/09/2017 12:00 AM MAMMOGRAPHY SCREENING, DIGITAL Reviewed 07/11/2012 12:00 AM THER/PROPH/DIAG INJ SC/IM Reviewed 07/11/2012 12:00 AM Decadron 1 mg [facility]#[id number] (Manuel) Reviewed 07/11/2012 12:00 AM Depo-Medrol 80 mg [facility]#[id number]-Fgrpdxfi Reviewed 08/21/2012 12:00 AM ASSAY CARBOXYHB QUANT Reviewed 09/18/2012 12:00 AM DRAIN/INJ JOINT/BURSA W/O US Reviewed 09/18/2012 12:00 AM Kenalog, Per 10 Mg [facility]#8755-3493-49 Reviewed 10/13/2012 12:00 AM COMPREHEN METABOLIC PANEL Reviewed 10/13/2012 12:00 AM LIPID PANEL Reviewed 10/13/2012 12:00 AM GLYCOSYLATED HEMOGLOBIN TEST Reviewed 10/13/2012 12:00 AM MICROALBUMIN SEMIQUANT Reviewed 04/15/2010 12:00 AM MAMMOGRAM SCREENING Reviewed 12/06/2012 12:00 AM DRAIN/INJ JOINT/BURSA W/O US Reviewed 12/06/2012 12:00 AM Kenalog, Per 10 Mg [facility]#6739-6501-54 Reviewed 12/22/2012 12:00 AM TOTAL CORTISOL Reviewed 04/26/2013 12:00 AM DRAIN/INJ JOINT/BURSA W/O US Reviewed 04/26/2013 12:00 AM Kenalog, Per 10 Mg [facility]#1511-6461-65 Reviewed 05/10/2013 12:00 AM DRAIN/INJ JOINT/BURSA W/O US Reviewed 05/10/2013 12:00 AM Kenalog, Per 10 Mg [facility]#5513-9150-14 Reviewed 05/10/2013 12:00 AM DRAIN/INJ JOINT/BURSA W/O US Reviewed 05/10/2013 12:00 AM Kenalog, Per 10 Mg [facility]#4773-0183-82 Reviewed 05/28/2013 12:00 AM MAMMOGRAM SCREENING Reviewed [...] 03/05/2014 12:00 AM Kenalog, Per 10 Mg [facility]#9358-9345-71 Reviewed 04/05/2014 12:00 AM COMPLETE CBC W/AUTO [...] Lumbago Feb 6 2011 4:20PM Cervicalgia Feb 2011 4:20PM Trochanteric [...] II Feb 2014 8:20AM Hyperlipidemia, mixed Feb 17 2015 8:20AM Hypertension Dec 17 2014 8:20AM Overactive [...] Callus of foot May 09 2017 8:26AM Payers Insurance Name Company Name Plan Name Plan Number Policy Number Policy Group Number Start Date Gpa Gpa [id number] Saturday, 2015 [employer] [place] [id number] Saturday, 2009 [employer] [place] [id number] Wednesday, 2009 History of Encounters Visit Date Visit Type Provider 05/09/2017 Office visit Brannon Jackson DO 03/08/2017 Office visit Brannon Jackson DO 01/25/2017 Office visit Brannon Jackson DO 01/19/2017 Office visit Regina Mcnally MANAGER STORE 01/04/2017 Procedures Reagan Lehman DO 12/24/2016 Office visit Brannon Jackson DO 12/23/2016 Surgery Reagan Lehman DO 12/14/2016 Office visit Reagan Lehman DO 11/25/2016 Office visit Brannon Jackson DO 11/19/2016 Office visit Sandra Milton MANAGER STORE 11/02/2016 Office visit Lakia Reina MANAGER STORE 09/09/2016 Office visit Brannon Jackson DO 05/18/2016 [...] visit Cass BRAY 05/15/2015 Office visit Brannon Tidwellburt BALTAZAR 05/08/2015 Nurse visit Cass BRAY 04/28/2015 Office [...] Jackson DO 08/27/2013 Office visit Regina Mcnally APRN 08/17/2013 Office visit Ray Tripathi APRN 05/21/2013 Office visit Brannon Jackson DO 05/10/2013 Office visit Anirudh Conway MD 04/26/2013 Office visit Anirudh Conway MD 12/22/2012 Office visit Brannon Jackson DO 12/14/2012 [facility] Sandra Ca MD 12/12/2012 Office visit Brannon Jackson DO 12/12/2012 [facility] Sandra Ca MD 12/06/2012 Office visit Anirudh Conway MD 11/24/2012 Office visit Regina Mcnally APRN 10/12/2012 [facility] Anirudh Conway MD 10/10/2012 Office visit Brannon Jackson DO 09/18/2012 Office visit Anirudh Conway MD 09/01/2012 Office visit Brannon Simpsonte DO 08/21/2012 Office visit Brannon Manuel DO 08/01/2012 Office visit Brannon Manuel DO 07/11/2012 Office visit Regina Mcnally MANAGER STORE 06/14/2012 Office visit Anirudh Conway MD 05/25/2012 Office visit Anirudh Conway MD 05/04/2012 Office visit Brannon Jackson DO 12/23/2011 Office visit Anirudh Conway MD 12/16/2011 Office visit Brannon Jackson DO 12/06/2011 Office visit Anirudh Conway MD 11/11/2011 Office visit Brannon Jackson DO 10/28/2011 Office visit Brannon Manuel DO 10/22/2011 [facility] Valery Cerna MD 10/21/2011 [facility] Valery Cerna MD 10/19/2011 Office visit Brannon Manuel DO 10/19/2011 [facility] Anderson Dawkins MD 10/07/2011 Office visit Brannon Manuel DO 04/27/2011 Office visit Brannon Manuel DO 04/16/2011 Office visit Brannon Manuel DO 12/18/2010 Office visit Brannon Manuel DO 11/17/2010 Office visit Brannon Manuel DO 10/08/2010 Office visit Brannon Manuel DO 08/18/2010 Office visit Regina Mcnally APRN 02/03/2010 Office visit Brannon Manuel DO 12/02/2009 Office visit Brannon Manuel DO 06/27/2009 Office visit Brannon Simpsonte DO
--- OUTSIDE RECORDS SUMMARY | 2018-10-25 08:27 | XMS REPORT ---
Author Author Karyna Gilbert [facility] Address [address] [place], [place] [address] Care Team Providers Care Store Stocker Name Role Phone Karyna Gilbert PCP Unavailable [...] by topical route 3 times per day permethrin 5 % topical cream 06/29/2017 apply (thoroughly massage into skin from head to feet) by topical route once leave on 8-14 hr, then bathe1 hydroxyzine pamoate 25 mg oral capsule 06/29/2017 take 1 capsule (25 mg) by oral route at HS x 10 days losartan-hydrochlorothiazide 100-25 mg oral tablet 07/11/2017 01/02/2019 TAKE 1 TABLET DAILY Name Start Date [...] 2 times per day for 7 days [place] Thyroid 120 mg oral tablet 12/14/2012 12/09/2013 [...] once daily for 14 days Taking Janumet hydrocodone-acetaminophen 10-325 mg oral tablet 06/15/2017 07/15/2017 take 1 tablet by oral route every 6 hours for 30 days permethrin 5 % topical cream 06/18/2017 06/19/2017 [...] Reviewed 12/13/2011 12:00 AM Kenalog per 10Mg Im-[facility]#[address]-21(Man) Reviewed 12/23/2011 12:00 AM DRAIN/INJ JOINT/BURSA W/O US Reviewed 12/23/2011 12:00 AM Kenalog 40 Mg Im-[facility]#1012-3767-64 Reviewed 11/19/2016 12:00 AM X-RAY EXAM OF HAND Reviewed 01/19/2017 12:00 AM COMPLETE CBC W/AUTO DIFF WBC Reviewed 01/19/2017 12:00 AM COMPREHEN METABOLIC PANEL Reviewed 01/19/2017 12:00 AM GLYCOSYLATED HEMOGLOBIN TEST Reviewed 05/25/2012 12:00 AM INJ TRIGGER POINT 1/2 MUSCL Reviewed 05/25/2012 12:00 AM Kenalog, Per 10 Mg [facility]#2059-7774-07 Reviewed 06/14/2012 12:00 AM DRAIN/INJ JOINT/BURSA W/O US Reviewed 06/14/2012 12:00 AM Kenalog, Per 10 Mg [facility]#7590-0494-90 Reviewed 05/09/2017 12:00 AM MAMMOGRAPHY SCREENING, DIGITAL Reviewed 07/11/2012 12:00 AM THER/PROPH/DIAG INJ SC/IM Reviewed 07/11/2012 12:00 AM Decadron 1 mg [facility]#[id number] (Manuel) Reviewed 07/11/2012 12:00 AM Depo-Medrol 80 mg [facility]#[id number]-Kjeavarg Reviewed 08/21/2012 12:00 AM ASSAY CARBOXYHB QUANT Reviewed 09/18/2012 12:00 AM DRAIN/INJ JOINT/BURSA W/O US Reviewed 09/18/2012 12:00 AM Kenalog, Per 10 Mg [facility]#1459-9649-89 Reviewed 10/13/2012 12:00 AM COMPREHEN METABOLIC PANEL Reviewed 10/13/2012 12:00 AM LIPID PANEL Reviewed 10/13/2012 12:00 AM GLYCOSYLATED HEMOGLOBIN TEST Reviewed 10/13/2012 12:00 AM MICROALBUMIN SEMIQUANT Reviewed 04/15/2010 12:00 AM MAMMOGRAM SCREENING Reviewed 12/06/2012 12:00 AM DRAIN/INJ JOINT/BURSA W/O US Reviewed 12/06/2012 12:00 AM Kenalog, Per 10 Mg [facility]#6111-6643-32 Reviewed 12/22/2012 12:00 AM TOTAL CORTISOL Reviewed 04/26/2013 12:00 AM DRAIN/INJ JOINT/BURSA W/O US Reviewed 04/26/2013 12:00 AM Kenalog, Per 10 Mg [facility]#4251-8161-12 Reviewed 05/10/2013 12:00 AM DRAIN/INJ JOINT/BURSA W/O US Reviewed 05/10/2013 12:00 AM Kenalog, Per 10 Mg [facility]#9476-7198-09 Reviewed 05/10/2013 12:00 AM DRAIN/INJ JOINT/BURSA W/O US Reviewed 05/10/2013 12:00 AM Kenalog, Per 10 Mg [facility]#5559-7474-71 Reviewed 05/28/2013 12:00 AM MAMMOGRAM SCREENING Reviewed [...] 10 Mg [facility]#7705-0281-63 Reviewed 04/05/2014 12:00 AM COMPLETE CBC W/AUTO [...] Policy Number Policy Group Number Start Date [facility] [id number] Saturday, 2015 [employer] [place] [id number] Saturday, 2009 [employer] [place] [id number] Wednesday, 2009 History of Encounters Visit Date Visit Type Provider 06/29/2017 Office visit Karyna Gilbert QUILTING MACHINE OPERATOR 06/18/2017 Office visit Karyna Gilbert QUILTING MACHINE OPERATOR 05/09/2017 Office visit Brannon Jackson DO 03/08/2017 Office visit Brannon Jackson DO 01/25/2017 Office visit Brannon Jackson DO 01/19/2017 Office visit Regina Mcnally QUILTING MACHINE OPERATOR 01/04/2017 Procedures Reagan Lehman DO 12/24/2016 Office visit Brannon Jackson DO 12/23/2016 Surgery Reagan Lehman DO 12/14/2016 Office visit Reagan Lehman DO 11/25/2016 Office visit Brannon Jackson DO 11/19/2016 Office visit Sandra Milton QUILTING MACHINE OPERATOR 11/02/2016 Office visit Lakia Reina QUILTING MACHINE OPERATOR 09/09/2016 Office visit Brannon Jackson DO 05/18/2016 [...] Manuel DO 08/27/2013 Office visit Regina Mcnally QUILTING MACHINE OPERATOR 08/17/2013 Office visit Ray Tripathi APRN 05/21/2013 Office visit Brannon Jackson DO 05/10/2013 Office visit Anirudh Conway MD 04/26/2013 Office visit Anirudh Conway MD 12/22/2012 Office visit Brannon Manuel DO 12/14/2012 [facility] Sandra Ca MD 12/12/2012 Office visit Brannon Jackson DO 12/12/2012 [facility] Sandra Ca MD 12/06/2012 Office visit Anirudh Conway MD 11/24/2012 Office visit Regina Mcnally QUILTING MACHINE OPERATOR 10/12/2012 [facility] Anirudh Conway MD 10/10/2012 Office visit Brannon Jackson DO 09/18/2012 Office visit Anirudh Conway MD 09/01/2012 Office visit Brannon Jackson DO 08/21/2012 Office visit Brannon Jackson DO 08/01/2012 Office visit Brannon Jackson DO 07/11/2012 Office visit Regina Mcnally QUILTING MACHINE OPERATOR 06/14/2012 Office visit Anirudh Conway MD [...] 10/19/2011 Office visit Brannon Manuel DO 10/19/2011 [facility] Anderson Dawkins MD 10/07/2011 Office visit Brannon Manuel DO 04/27/2011 Office visit Brannon Manuel DO 04/16/2011 Office visit Brannon Jackson DO 12/18/2010 Office visit Brannon Jackson DO 11/17/2010 Office visit Brannon Jackson DO 10/08/2010 Office visit Brannon Jackson DO 08/18/2010 Office visit Regina Mcnally QUILTING MACHINE OPERATOR 02/03/2010 Office visit Brannon Jackson DO 12/02/2009 Office visit Brannon Jackson DO 06/27/2009 Office visit Brannon Jackson DO
--- OUTSIDE RECORDS SUMMARY | 2018-10-25 08:29 | XMS REPORT ---
Author Reagan Lopez [facility] Address [address] [place], [place] [address] Care Team Providers Care Cut Off Tender Glass Name Role Phone Reagan Lehman PCP Unavailable Brannon Jackson PreferredProvider Unavailable Allergies and Adverse Reactions Name Reaction Notes Promethazine vomiting Zofran vomiting Plan of Treatment Planned Activity Comments Planned Date Planned Time Plan/Goal MRI pelvis and hip left wo contrast 08/01/2015 12:00 AM URIC ACID. 11/25/2016 12:00 AM URIC ACID. 11/25/2016 12:00 AM MRI THORACIC SPINE W/O CONTRAST 12/15/2016 12:00 AM MRI LUMBAR SPINE W/O CONTRAST 12/15/2016 12:00 AM C-Reactive Protein (CRP) 05/04/2012 12:00 [...] 02/06/2013 12:00 AM Microalbuminuria 02/06/2013 12:00 AM Ganglion cyst right hand 12/14/2016 2:30 PM Hgb A1c 09/20/2014 12:00 AM Microalbumin urine [...] as needed for 90 days muscle spasm gabapentin 300 mg oral capsule 09/09/2016 09/04/2017 take 1 capsule by oral route 2 times a day for 90 days losartan-hydrochlorothiazide 100-25 mg oral tablet 09/09/2016 [...] 90 days hydrocodone-acetaminophen 10-325 mg oral tablet 12/02/2016 01/01/2017 take 1 tablet by oral route every 6 hours for 30 days Tivorbex 40 mg oral capsule 12/02/2016 take 1 capsule (40 mg) by oral route 2 times per day with food estradiol 0.5 mg oral tablet take 1 tablet (0.5 mg) by oral route once daily Name Start Date Expiration Date SIG Comments [...] 2 times per day for 7 days [place] Thyroid 120 mg oral tablet 12/14/2012 12/09/2013 [...] route every 12 hours x 10 days Discontinued Name Start Date Discontinued Date [...] tablet by oral route every other day Problem List Description Status Onset Depressive Disorder Active Diabetes Mellitus, Type II Active Hyperlipidemia, Mixed Active Hypertension Active Obesity Active Fibromyalgia Active 05/26/2013 Overactive bladder Active 12/18/2014 Osteoarthritis, Left Hip Active 03/10/2015 Left hip pain Active 03/10/2015 Lumbago Active 06/04/2015 Ganglion cyst Active 12/14/2016 Vital Signs Date Time BP-Sys(mm[Hg] BP-Debo(mm[Hg]) HR(bpm) RR(rpm) Temp WT HT HC BMI BSA BMI Percentile O2 Sat(%) 12/24/2016 10:21:00 AM 156 mmHg 96 mmHg [...] 12/13/2011 12:00 AM Kenalog per 10Mg Im-[facility]#[address]-96(Man) Reviewed 12/23/2011 12:00 AM DRAIN/INJ JOINT/BURSA W/O US Reviewed 12/23/2011 12:00 AM Kenalog 40 Mg Im-[facility]#2742-3924-66 Reviewed 11/19/2016 12:00 AM X-RAY EXAM OF HAND Reviewed 05/25/2012 12:00 AM INJ TRIGGER POINT 1/2 MUSCL Reviewed 05/25/2012 12:00 AM Kenalog, Per [address] [facility]#2035-1878-09 Reviewed 06/14/2012 12:00 AM DRAIN/INJ JOINT/BURSA W/O US Reviewed 06/14/2012 12:00 AM Kenalog, Per [address] [facility]#5412-9058-49 Reviewed 07/11/2012 12:00 AM THER/PROPH/DIAG INJ SC/IM Reviewed 07/11/2012 12:00 AM Decadron [address] [facility]#[id number] (Manuel) Reviewed 07/11/2012 12:00 AM Depo-Medrol [address] [facility]#[id number]-[place] Reviewed 08/21/2012 12:00 AM ASSAY CARBOXYHB QUANT Reviewed 09/18/2012 12:00 AM DRAIN/INJ JOINT/BURSA W/O US Reviewed 09/18/2012 12:00 AM Kenalog, Per [address] [facility]#6645-8350-87 Reviewed 10/13/2012 12:00 AM COMPREHEN METABOLIC PANEL Reviewed 10/13/2012 12:00 AM LIPID PANEL Reviewed 10/13/2012 12:00 AM GLYCOSYLATED HEMOGLOBIN TEST Reviewed 10/13/2012 12:00 AM MICROALBUMIN SEMIQUANT Reviewed 04/15/2010 12:00 AM MAMMOGRAM SCREENING Reviewed 12/06/2012 12:00 AM DRAIN/INJ JOINT/BURSA W/O US Reviewed 12/06/2012 12:00 AM Kenalog, Per [address] [facility]#8687-3417-67 Reviewed 12/22/2012 12:00 AM TOTAL CORTISOL Reviewed 04/26/2013 12:00 AM DRAIN/INJ JOINT/BURSA W/O US Reviewed 04/26/2013 12:00 AM Kenalog, Per [address] [facility]#8432-9047-36 Reviewed 05/10/2013 12:00 AM DRAIN/INJ JOINT/BURSA W/O US Reviewed 05/10/2013 12:00 AM Kenalog, Per [address] [facility]#9517-4282-11 Reviewed 05/10/2013 12:00 AM DRAIN/INJ JOINT/BURSA W/O US Reviewed 05/10/2013 12:00 AM Kenalog, Per [address] [facility]#3633-5428-51 Reviewed 05/28/2013 12:00 AM MAMMOGRAM SCREENING Reviewed [...] 03/05/2014 12:00 AM [place], Per [address] [facility]#9950-9295-00 Reviewed 04/05/2014 12:00 AM COMPLETE CBC W/AUTO [...] AM FIBRIN DEGRADATION QUANT Reviewed Results Summary Data and Description Results [...] Dec 18 2010 9:00AM Ganglion cyst 12/14/2016 Pain in joint; Left Hip Apr 16 [...] 3:50PM Chronic Right Pain in joint; Knee b 2014 3:20PM Lumbago b 2014 3:20PM Pain in joint; shoulder region, [...] 3:28PM Ganglion cyst Dec 14 2016 2:58PM Payers Insurance Name Company Name Plan Name Plan Number Policy Number Policy Group Number Start Date [facility] [id number] Saturday, 2015 [employer] [place] [id number] Saturday, 2009 [employer] [place] [id number] Wednesday, 2009 History of Encounters Visit Date Visit Type Provider 12/24/2016 Office visit Reagan Lehman DO 12/23/2016 Surgery Reagan Lehman DO 12/14/2016 Office visit Reagan Lehman DO 11/25/2016 Office visit Brannon Jackson DO 11/19/2016 Office visit Sandra Milton APRN 11/02/2016 Office visit Lakia Reina APRN 09/09/2016 Office visit Brannon Jackson DO 05/18/2016 [...] BRAY 02/05/2015 Nurse visit Cass ARCINIEGAP 12/17/2014 Hospital Dinesh Zhu MD 12/17/2014 Office visit Brannon Jackson DO 12/12/2014 Office visit Cass ARCINIEGAP 10/29/2014 Office visit Cass ARCINIEGAP 10/02/2014 Office visit Cass ARCINIEGAP 09/20/2014 Office visit Brannon Jackson DO 09/05/2014 Office visit Cass ARCINIEGAP 07/29/2014 Office visit Cass ARCINIEGAP 07/18/2014 Office visit Brannon Jackson DO 07/03/2014 Office visit Rob Ruiz MAINTENANCE PAINTER 06/11/2014 Office visit Cass ARCINIEGAP 04/29/2014 Office visit Cass ARCINIEGAP 04/29/2014 Office visit Brannon Jackson DO 04/05/2014 Office visit Harjinder Paiz PA-C 02/25/2014 Office visit Cass ARCINIEGAP 01/02/2014 Office visit Cass ARCINIEGAP 12/18/2013 Office visit Cass ARCINIEGAP 09/13/2013 Office visit Brannon Jackson DO 08/27/2013 Office visit Regina Mcnally MAINTENANCE PAINTER 08/17/2013 Office visit Ray Tripathi MAINTENANCE PAINTER 05/21/2013 Office visit Brannon Jackson DO 05/10/2013 Office visit Anirudh Conway MD 04/26/2013 Office visit Anirudh Conway MD 12/22/2012 Office visit Brannon Jackson DO 12/14/2012 [facility] Sandra Ca MD 12/12/2012 Office visit Brannon Jackson DO 12/12/2012 [facility] Sandra Ca MD 12/06/2012 Office visit Anirudh Conway MD 11/24/2012 Office visit Regina Mcnally MAINTENANCE PAINTER 10/12/2012 [facility] Anirudh Conway MD 10/10/2012 Office visit Brannon Jackosn DO 09/18/2012 Office visit Anirudh Conway MD 09/01/2012 Office visit Brannon Jackson DO 08/21/2012 Office visit Brannon Jackson DO 08/01/2012 Office visit Brannon Jackson DO 07/11/2012 Office visit Regina Mcnally MAINTENANCE PAINTER 06/14/2012 Office visit Anirudh Conway MD 05/25/2012 Office visit Anirudh Conway MD 05/04/2012 Office visit Brannon Jackson DO 12/23/2011 Office visit Anirudh Conway MD 12/16/2011 Office visit Brannon Jackson DO 12/06/2011 Office visit Anirudh Conway MD 11/11/2011 Office visit Brannon Jackson DO 10/28/2011 Office visit Brannon Jackson DO 10/22/2011 [facility] Valery Cerna MD 10/21/2011 [facility] Valery Cerna MD 10/19/2011 Office visit Brannon Jackson DO 10/19/2011 [facility] Anderson Dawkins [...]
--- OUTSIDE RECORDS SUMMARY | 2018-10-25 08:31 | XMS REPORT ---
Author Author Cass Arellano [facility] Address [address] [place], [place] [id number] Care Team Providers Care Molder Helper Name Role Phone Cass Arellano PCP Allergies [...] Multivitamin, Hair, Skin,and Nails one tablet daily Prozac 20 mg oral capsule 06/25/2014 09/18/2015 take 1 capsule (20 mg) by oral route once daily for 90 days 3 mo supply for mail order through [employer] amitriptyline 10 mg oral tablet 08/29/2014 11/22/2015 [...] glucose 2 times per day Dx: 250.00 hydrocodone-acetaminophen 10-325 mg oral tablet 08/01/2015 08/31/2015 take 1 tablet by oral route every 6 hours for 30 days Bactrim DS 800-160 mg oral tablet 08/01/2015 08/08/2015 take 1 tablet by oral route 2 times per day for 7 days Name Start Date Expiration Date SIG [...] 2 times per day for 7 days [place] Thyroid 120 mg oral tablet 12/14/2012 12/09/2013 [...] 2 times per day for 5 days alprazolam 0.5 mg oral tablet 06/27/2015 07/27/2015 TAKE ONE TABLET BY MOUTH TWICE DAILY NEEDED Discontinued Name Start Date Discontinued Date SIG [...] HC BMI BSA BMI Percentile O2 Sat(%) 08/01/2015 11:33:00 AM 140 mmHg 82 mmHg [...] AM Kenalog per 10Mg Im-[facility]#[address]-84(Man) Reviewed 12/23/2011 12:00 AM DRAIN/INJ JOINT/BURSA W/O US Reviewed 12/23/2011 12:00 AM Kenalog 40 Mg Im-[facility]#5933-5364-57 Reviewed 05/25/2012 12:00 AM INJ TRIGGER POINT 1/2 MUSCL Reviewed 05/25/2012 12:00 AM Kenalog, Per 10 Mg [facility]#2804-2985-19 Reviewed 06/14/2012 12:00 AM DRAIN/INJ JOINT/BURSA W/O US Reviewed 06/14/2012 12:00 AM Kenalog, Per 10 Mg [facility]#8556-1862-00 Reviewed 07/11/2012 12:00 AM THER/PROPH/DIAG INJ SC/IM Reviewed 07/11/2012 12:00 AM Decadron 1 mg [facility]#[id number] (Manuel) Reviewed 07/11/2012 12:00 AM Depo-Medrol 80 mg [facility]#[id number]-Mzkwjngs Reviewed 08/21/2012 12:00 AM ASSAY CARBOXYHB QUANT Reviewed 09/18/2012 12:00 AM DRAIN/INJ JOINT/BURSA W/O US Reviewed 09/18/2012 12:00 AM Kenalog, Per 10 Mg [facility]#6867-1674-79 Reviewed 10/13/2012 12:00 AM COMPREHEN METABOLIC PANEL Reviewed 10/13/2012 12:00 AM LIPID PANEL Reviewed 10/13/2012 12:00 AM GLYCOSYLATED HEMOGLOBIN TEST Reviewed 10/13/2012 12:00 AM MICROALBUMIN SEMIQUANT Reviewed 04/15/2010 12:00 AM MAMMOGRAM SCREENING Reviewed 12/06/2012 12:00 AM DRAIN/INJ JOINT/BURSA W/O US Reviewed 12/06/2012 12:00 AM Kenalog, Per 10 Mg [facility]#3968-1055-95 Reviewed 12/22/2012 12:00 AM TOTAL CORTISOL Reviewed 04/26/2013 12:00 AM DRAIN/INJ JOINT/BURSA W/O US Reviewed 04/26/2013 12:00 AM Kenalog, Per 10 Mg [facility]#2482-2906-69 Reviewed 05/10/2013 12:00 AM DRAIN/INJ JOINT/BURSA W/O US Reviewed 05/10/2013 12:00 AM Kenalog, Per 10 Mg [facility]#7479-6205-06 Reviewed 05/10/2013 12:00 AM DRAIN/INJ JOINT/BURSA W/O US Reviewed 05/10/2013 12:00 AM Kenalog, Per 10 Mg [facility]#9357-0456-97 Reviewed 05/28/2013 12:00 AM MAMMOGRAM SCREENING Reviewed [...] 03/05/2014 12:00 AM Kenalog, Per 10 Mg [facility]#3349-1245-43 Reviewed 04/05/2014 12:00 AM COMPLETE CBC W/AUTO [...] BILI 0.90 mg/dLCALCIUM 9.50 mg/dLeGFR >60 mL/min/1.73 [id number] 18.0 U/L 01/02/2014 10:02 AM GLUCOSE 134.0 [...] 6.70 %Estim. Avg Glu (eAG) 146 mg/dL History Of [...] Essential Hypertension Feb 03 2010 3:34PM Hormone Replacement Therapy Obesity Overactive bladder Fibromyalgia 05/26/2013 Rash Of [...] Bilateral Hip Dec 06 2011 4:20PM Bursitis b 2011 4:20PM Pain in joint; Knee Feb 2011 4:20PM Fibromyalgia Feb 6 2011 4:20PM Lumbago Feb 2011 4:20PM Cervicalgia Feb 2011 4:20PM Trochanteric Bursitis Feb 13 2012 9:26AM Insomnia Dec 16 2011 3:26PM Dermatitis [...] Left Hip Dec 12 2014 3:20PM Fatigue Feb 2014 3:20PM Diabetes Mellitus, Type II Feb 13 2014 12:09PM Dysuria Feb 13 2014 12:09PM Gastroesophageal Reflux b 2014 8:20AM Diabetes Mellitus, Type II Dec [...] Osteoarthritis, Left Hip Aug 01 2015 11:36AM Payers Insurance Name Company Name Plan Name Plan Number Policy Number Policy Group Number [id number] Wednesday, 2009 [facility] [id number] Saturday, 2009 History of Encounters Visit Date Visit Type Provider 08/01/2015 Office visit Cass BRAY 07/02/2015 Office visit Cass BRAY 06/04/2015 Office visit Cass BRAY 05/15/2015 Office visit Brannon Manuel DO 05/08/2015 Nurse visit Cass ARCINIEGAP 04/28/2015 Office visit Brannon Manuel DO 04/09/2015 [...] Brannon Manuel DO 09/05/2014 Office visit Cass ARCINIEGAP 07/29/2014 Office visit Cass ARCINIEGAP 07/18/2014 Office visit Brannon Manuel DO 07/03/2014 Office visit Rob Ruiz APRN 06/11/2014 Office visit Cass ARCINIEGAP 04/29/2014 Office visit Cass ARCINIEGAP 04/29/2014 Office visit Brannon Manuel DO 04/05/2014 [...] 12/22/2012 Office visit Brannon Jackson DO 12/14/2012 [facility] Sandra Ca MD 12/12/2012 Office visit Brannon Jackson DO 12/12/2012 [facility] Sandra Ca MD 12/06/2012 Office visit Anirudh Conway MD 11/24/2012 Office visit Regina Mcnally AFFILIATE MARKETING SPECIALIST 10/12/2012 [facility] Anirudh Conway MD 10/10/2012 Office visit Brannon Jackson DO 09/18/2012 Office visit Anirudh Conway MD 09/01/2012 Office visit Brannon Manuel DO 08/21/2012 Office visit Brannon Jackson DO 08/01/2012 Office visit Brannon Jackson DO 07/11/2012 Office visit Regina Mcnally AFFILIATE MARKETING SPECIALIST 06/14/2012 Office visit Anirudh Conway MD 05/25/2012 Office visit Anirudh Conway MD 05/04/2012 Office visit Brannon Jackson DO 12/23/2011 Office visit Anirudh Conway MD 12/16/2011 Office visit Brannon Jackson DO 12/06/2011 Office visit Anirudh Conway MD 11/11/2011 Office visit Brannon Jackson DO 10/28/2011 Office visit Brannon Jackson DO 10/22/2011 [facility] Valery Cerna MD 10/21/2011 [facility] Valery Cerna MD 10/19/2011 Office visit Brannon Jackson DO 10/19/2011 [facility] Anderson Dawkins MD 10/07/2011 Office visit Brannon Jackson DO 04/27/2011 Office visit Brannon Jackson DO 04/16/2011 Office visit Brannon Jackson DO 12/18/2010 Office visit Brannon Jackson DO 11/17/2010 Office visit Brannon Jackson DO 10/08/2010 Office visit Brannon Jackson DO 08/18/2010 Office visit Regina Mcnally AFFILIATE MARKETING SPECIALIST 02/03/2010 Office visit Brannon Jackson DO 12/02/2009 Office visit Brannon Jackson DO 06/27/2009 Office visit Brannon Jackson DO
--- OUTSIDE RECORDS SUMMARY | 2018-10-25 08:33 | XMS REPORT ---
Author Author Reagan Lehman [facility] Address [address] [place], [place] [address] Care Team Providers Care Ems Instructor Name Role Phone Reagan Lehman PCP Unavailable Allergies and Adverse Reactions Name [...] Dx: 250.00 hydrocodone-acetaminophen 10-325 mg oral tablet 08/20/2015 09/19/2015 take 1 tablet by oral route every 6 hours for 30 days Prozac 20 mg oral capsule 08/28/2015 08/22/2016 take 1 capsule (20 mg) by oral route once daily for 90 days cane miscellaneous device 09/01/2015 use as directed single point mike alprazolam 0.5 mg oral tablet 09/01/2015 10/01/2015 [...] 2 times per day for 7 days [place] Thyroid 120 mg oral tablet 12/14/2012 12/09/2013 [...] Reviewed 12/13/2011 12:00 AM Kenalog per 10Mg Im-[facility]#[address]-60(Man) Reviewed 12/23/2011 12:00 AM DRAIN/INJ JOINT/BURSA W/O US Reviewed 12/23/2011 12:00 AM Kenalog 40 Mg Im-Ndc#4744-1567-62 Reviewed 05/25/2012 12:00 AM INJ TRIGGER POINT 1/2 MUSCL Reviewed 05/25/2012 12:00 AM Kenalog, Per 10 Mg [facility]#9548-6996-77 Reviewed 06/14/2012 12:00 AM DRAIN/INJ JOINT/BURSA W/O US Reviewed 06/14/2012 12:00 AM Kenalog, Per 10 Mg [facility]#7126-4147-84 Reviewed 07/11/2012 12:00 AM THER/PROPH/DIAG INJ SC/IM Reviewed 07/11/2012 12:00 AM Decadron 1 mg [facility]#[id number] (Manuel) Reviewed 07/11/2012 12:00 AM Depo-Medrol 80 mg ND#[id number]-Yrsylyfe Reviewed 08/21/2012 12:00 AM ASSAY CARBOXYHB QUANT Reviewed 09/18/2012 12:00 AM DRAIN/INJ JOINT/BURSA W/O US Reviewed 09/18/2012 12:00 AM Kenalog, Per [address] [facility]#5634-6483-98 Reviewed 10/13/2012 12:00 AM COMPREHEN METABOLIC PANEL Reviewed 10/13/2012 12:00 AM LIPID PANEL Reviewed 10/13/2012 12:00 AM GLYCOSYLATED HEMOGLOBIN TEST Reviewed 10/13/2012 12:00 AM MICROALBUMIN SEMIQUANT Reviewed 04/15/2010 12:00 AM MAMMOGRAM SCREENING Reviewed 12/06/2012 12:00 AM DRAIN/INJ JOINT/BURSA W/O US Reviewed 12/06/2012 12:00 AM Kenalog, Per [address] [facility]#5478-6087-25 Reviewed 12/22/2012 12:00 AM TOTAL CORTISOL Reviewed 04/26/2013 12:00 AM DRAIN/INJ JOINT/BURSA W/O US Reviewed 04/26/2013 12:00 AM Kenalog, Per [address] [facility]#4118-2292-79 Reviewed 05/10/2013 12:00 AM DRAIN/INJ JOINT/BURSA W/O US Reviewed 05/10/2013 12:00 AM Kenalog, Per [address] [facility]#8677-8729-02 Reviewed 05/10/2013 12:00 AM DRAIN/INJ JOINT/BURSA W/O US Reviewed 05/10/2013 12:00 AM Kenalog, Per [address] [facility]#2344-9066-11 Reviewed 05/28/2013 12:00 AM MAMMOGRAM SCREENING Reviewed [...] JOINT/BURSA W/O US Reviewed 03/05/2014 12:00 AM SatnamLele barlow [address] [facility]#0163-7830-95 Reviewed 04/05/2014 12:00 AM COMPLETE CBC W/AUTO [...] BILI 0.90 mg/dLCALCIUM 9.50 mg/dLeGFR >60 mL/min/1.73 [id number] 18.0 U/L 01/02/2014 10:02 AM GLUCOSE 134.0 [...] 9:25AM Ganglion cyst Sep 03 2015 3:00PM Payers Insurance Name Company Name Plan Name Plan Number Policy Number Policy Group Number Start Date [facility] [place] [id number] Wednesday, 2009 [employer] [facility] [place] [id number] Saturday, 2009 History of Encounters Visit Date Visit Type Provider 09/03/2015 Procedures Reagan Lehman DO 08/29/2015 Office [...] visit Brannon Jackson DO 04/05/2014 Office visit Harjinedr Paiz PA-C 02/25/2014 Office visit Cass BRAY 01/02/2014 Office visit Cass BRAY 12/18/2013 Office visit Cass BRAY 09/13/2013 Office visit Brannon Jackson DO 08/27/2013 Office visit Regina Mcnally STAFF RADIOLOGIST 08/17/2013 Office visit Ray Tripathi APRN 05/21/2013 Office visit Brannon Jackson DO 05/10/2013 Office visit Anirudh Conway MD 04/26/2013 Office visit Anirudh Conway MD 12/22/2012 Office visit Brannon Jackson DO 12/14/2012 [facility] Sandra Ca MD 12/12/2012 Office visit Brannon Jackson DO 12/12/2012 [facility] Sandra Ca MD 12/06/2012 Office visit Anirudh Conway MD 11/24/2012 Office visit Regina Mcnally APRN 10/12/2012 [facility] Anirudh Conway MD 10/10/2012 Office visit Brannon Jackson DO 09/18/2012 Office visit Anirudh Conway MD 09/01/2012 Office visit Brannon Jackson DO 08/21/2012 Office visit Brannon Jackson DO 08/01/2012 Office visit Brannon Jackson DO 07/11/2012 Office visit Regian Mcnally APRN 06/14/2012 Office visit Anirudh Conway MD 05/25/2012 Office visit Anirudh Conway MD 05/04/2012 Office visit Brannon Jackson DO 12/23/2011 Office visit Anirudh Conway MD 12/16/2011 Office visit Brannon Jackson DO 12/06/2011 Office visit Anirudh Conway MD 11/11/2011 Office visit Brannon Jackson DO 10/28/2011 Office visit Brannon Manuel DO 10/22/2011 [facility] Valery Cerna MD 10/21/2011 [facility] Valery Cerna MD 10/19/2011 Office visit Brannon Jackson DO 10/19/2011 [facility] Anderson Dawkins MD 10/07/2011 Office visit Brannon Simpsonte DO 04/27/2011 Office visit Brannon Simpsonte DO 04/16/2011 Office visit Brannon Jackson DO 12/18/2010 Office visit Brannon Jackson DO 11/17/2010 Office visit Brannon Jackson DO 10/08/2010 Office visit Brannon Jackson DO 08/18/2010 Office visit Regina Mcnally APRN 02/03/2010 Office visit Brannon Jackson DO 12/02/2009 Office visit Brannon Jackson DO 06/27/2009 Office visit Brannon Jackson DO
--- OUTSIDE RECORDS SUMMARY | 2018-10-25 08:35 | XMS REPORT ---
Author Author Brannon Jackson [facility] Address [address] [place], [place] [address] Care Team Providers Care Audit Manager Name Role Phone Brannon Jackson PCP Brannon [...] device 09/01/2015 use as directed single point mckeonpaco Boogiet 50-1,000 mg oral tablet 02/21/2017 02/16/2018 take 1 tablet by oral route 2 times per day with meals for 90 days estradiol 0.5 mg oral tablet 05/09/2017 take 1 tablet (0.5 mg) by oral route once daily hydrocortisone valerate 0.2 % topical cream 05/20/2017 apply a thin layer to the affected area(s) by topical route 3 times per day losartan-hydrochlorothiazide 100-25 mg oral tablet 07/11/2017 01/02/2019 TAKE 1 TABLET DAILY Tivorbex 40 mg oral capsule 09/21/2017 take 1 capsule (40 mg) by oral route 3 times per for 90 days amlodipine 5 mg oral tablet 09/26/2017 09/21/2018 TAKE 1 TABLET DAILY omeprazole 40 mg oral capsule,delayed release(DR/EC) 09/26/2017 09/21/2018 TAKE 1 CAPSULE DAILY simvastatin 20 mg oral tablet 09/26/2017 09/21/2018 TAKE 1 TABLET ONCE DAILY INTHE EVENING cyclobenzaprine 10 mg oral tablet 09/26/2017 09/21/2018 TAKE 1 TABLET EVERY 8 HOURSAS NEEDED FOR MUSCLE SPASM Prozac 20 mg oral capsule 09/26/2017 09/21/2018 TAKE 1 CAPSULE DAILY amitriptyline 10 mg oral tablet 09/26/2017 09/21/2018 TAKE 1 TABLET ONCE A DAY ATBEDTIME Flonase Allergy Relief 50 mcg/actuation nasal spray,suspension 10/05/2017 spray 1 spray (50 mcg) in each nostril by intranasal route once daily tolterodine 4 mg oral capsule,extended release 24hr 10/17/2017 take 1 capsule (4 mg) by oral route once daily for 90 days Voltaren 1 % topical gel 10/25/2017 apply 2 gram to the affected area(s) by topical route 4 times per day Medrol (Amado) 4 mg oral tablets,dose pack 11/09/2017 take as directed OneTouch Verio miscellaneous strip 11/11/2017 Test glucose 4 times a day Dx :e11.65 gabapentin 300 mg oral capsule 11/11/2017 Take 1 capsule in am and 2 capsules in pm hydrocodone-acetaminophen 10-325 mg oral tablet 12/12/2017 01/11/2018 take 1 tablet by oral route every [...] 2 times per day for 7 days [place] Thyroid 120 mg oral tablet 12/14/2012 12/09/2013 [...] 09/21/2018 TAKE 1 TABLET TWICE A DAY metformin 1,000 mg oral tablet 09/26/2017 09/21/2018 [...] oral route every 6 hours as needed hydroxyzine pamoate 25 mg oral capsule 06/29/2017 [...] once leave on 8-14 hr, then bathe1 Zyrtec-D 5-120 mg oral tablet extended release 12 hr 10/05/2017 11/11/2017 take 1 tablet by oral route 2 times per day Problem List Description Status Onset Depressive [...] HC BMI BSA BMI Percentile O2 Sat(%) 12/02/2017 8:55:00 AM 162 mmHg 98 mmHg [...] Reviewed 12/13/2011 12:00 AM Kenalog per 10Mg Im-[facility]#[address]-64(Man) Reviewed 12/23/2011 12:00 AM DRAIN/INJ JOINT/BURSA W/O US Reviewed 12/23/2011 12:00 AM Kenalog 40 Mg Im-[facility]#0680-7134-71 Reviewed 11/19/2016 12:00 AM X-RAY EXAM OF HAND Reviewed 01/19/2017 12:00 AM COMPLETE CBC W/AUTO DIFF WBC Reviewed 01/19/2017 12:00 AM COMPREHEN METABOLIC PANEL Reviewed 01/19/2017 12:00 AM GLYCOSYLATED HEMOGLOBIN TEST Reviewed 05/25/2012 12:00 AM INJ TRIGGER POINT 1/2 MUSCL Reviewed 05/25/2012 12:00 AM Kenalog, Per 10 Mg [facility]#8688-2589-12 Reviewed 06/14/2012 12:00 AM DRAIN/INJ JOINT/BURSA W/O US Reviewed 06/14/2012 12:00 AM Kenalog, Per 10 Mg [facility]#8638-0952-12 Reviewed 05/09/2017 12:00 AM MAMMOGRAPHY SCREENING, DIGITAL Reviewed 07/11/2012 12:00 AM THER/PROPH/DIAG INJ SC/IM Reviewed 07/11/2012 12:00 AM Decadron 1 mg [facility]#[id number] (Manuel) Reviewed 07/11/2012 12:00 AM Depo-Medrol 80 mg [facility]#[id number]-Iscjghko Reviewed 08/21/2012 12:00 AM ASSAY CARBOXYHB QUANT Reviewed 09/01/2017 12:00 AM RADIOLOGIC EXAMINATION KNEE 1/2 VIEWS Reviewed 09/18/2012 12:00 AM DRAIN/INJ JOINT/BURSA W/O US Reviewed 09/18/2012 12:00 AM Kenalog, Per 10 Mg [facility]#2224-1725-25 Reviewed 10/25/2017 12:00 AM RADIOLOGIC EXAMINATION KNEE [...] 12/02/2017 12:00 AM Depo-Medrol 80mg Injection Reviewed 04/15/2010 12:00 AM MAMMOGRAM SCREENING Reviewed 12/06/2012 12:00 AM DRAIN/INJ JOINT/BURSA W/O US Reviewed 12/06/2012 12:00 AM Kenalog, Per 10 Mg [facility]#6017-7897-69 Reviewed 12/22/2012 12:00 AM TOTAL CORTISOL Reviewed 04/26/2013 12:00 AM DRAIN/INJ JOINT/BURSA W/O US Reviewed 04/26/2013 12:00 AM Kenalog, Per 10 Mg [facility]#2646-2731-61 Reviewed 05/10/2013 12:00 AM DRAIN/INJ JOINT/BURSA W/O US Reviewed 05/10/2013 12:00 AM Kenalog, Per 10 Mg [facility]#7817-0625-18 Reviewed 05/10/2013 12:00 AM DRAIN/INJ JOINT/BURSA W/O US Reviewed 05/10/2013 12:00 AM Kenalog, Per 10 Mg [facility]#5622-3802-76 Reviewed 05/28/2013 12:00 AM MAMMOGRAM SCREENING Reviewed [...] 03/05/2014 12:00 AM Kenalog, Per 10 Mg [facility]#0521-4687-42 Reviewed 04/05/2014 12:00 AM COMPLETE CBC W/AUTO [...] 2011 3:43PM Pain in joint; Bilateral Hip b 2011 4:20PM Bursitis Feb 6 2011 4:20PM Pain in joint; Knee Feb 6 2011 4:20PM Fibromyalgia Feb 6 2011 4:20PM Lumbago Feb 2011 4:20PM Cervicalgia Dec 06 2011 4:20PM Trochanteric Bursitis Dec 13 2011 [...] Fe2014 3:20PM Diabetes Mellitus, Type II Feb 2014 12:09PM Dysuria Feb 13 2014 12:09PM Gastroesophageal Reflux Feb 17 2015 8:20AM Diabetes Mellitus, Type II Dec 17 [...] of right knee Dec 02 2017 8:57AM Payers Insurance Name Company Name Plan Name Plan Number Policy Number Policy Group Number Start Date [facility] Gpa [id number] Saturday, 2015 [employer] [place] [id number] Saturday, 2009 [employer] [place] [id number] Wednesday, 2009 History of Encounters Visit Date Visit Type Provider 12/02/2017 Office visit Brannon Jackson DO 11/11/2017 Office visit Brannon Jackson DO 11/09/2017 Office visit Harjinder Paiz PA-C 10/28/2017 Office visit Lakia Reina APRN 10/25/2017 Office visit Regina Mcnally TEMPLATE WORKER 10/05/2017 Office visit Regina Mcnally TEMPLATE WORKER 09/01/2017 Office visit Brannon Manuel DO 06/29/2017 Office visit Karyna Gilbert TEMPLATE WORKER 06/18/2017 Office visit Karyna Gilbert TEMPLATE WORKER 05/09/2017 Office visit Brannon Simpsonte DO 03/08/2017 Office visit Brannon Manuel DO 01/25/2017 Office visit Brannon Manuel DO 01/19/2017 Office visit Regina Mcnally TEMPLATE WORKER 01/04/2017 Procedures Reagan Lehman DO 12/24/2016 Office visit Brannon Manuel DO 12/23/2016 Surgery Reagan Bouman DO 12/14/2016 Office visit Reagan Bouman DO 11/25/2016 Office visit Brannon Manuel DO 11/19/2016 Office visit Sandra Yoan TEMPLATE WORKER 11/02/2016 Office visit Lakia Reina TEMPLATE WORKER 09/09/2016 Office visit Brannon Manuel DO [...] visit Cass BRAY 10/29/2014 Office visit Cass ARCINIEGAP 10/02/2014 Office visit Cass ARCINIEGAP 09/20/2014 Office visit Brannon Manuel DO 09/05/2014 Office visit Cass ARCINIEGAP 07/29/2014 Office visit Cass ARCINIEGAP 07/18/2014 Office visit Brannon Jackson DO 07/03/2014 Office visit Rob Ruiz TEMPLATE WORKER 06/11/2014 Office visit Cass ARCINIEGAP 04/29/2014 Office visit Cass ARCINIEGAP 04/29/2014 Office visit Brannon Jackson DO 04/05/2014 Office visit Harjinder Paiz PA-C 02/25/2014 Office visit Cass ARCINIEGAP 01/02/2014 Office visit Cass BRAY 12/18/2013 Office visit Cass BRAY 09/13/2013 Office visit Brannon Jackson DO 08/27/2013 Office visit Regina Mcnally TEMPLATE WORKER 08/17/2013 Office visit Ray Tripathi TEMPLATE WORKER 05/21/2013 Office visit Brannon Jackson DO 05/10/2013 Office visit Anirudh Conway MD 04/26/2013 Office visit Anirudh Conway MD 12/22/2012 Office visit Brannon Jackson DO 12/14/2012 [facility] Sandra Ca MD 12/12/2012 Office visit Brannon Jackson DO 12/12/2012 [facility] Sandra Ca MD 12/06/2012 Office visit Anirudh Conway MD 11/24/2012 Office visit Regina Mcnally TEMPLATE WORKER 10/12/2012 [facility] Anirudh Conway MD 10/10/2012 Office visit Brannon Jackson DO 09/18/2012 Office visit Anirudh Conway MD 09/01/2012 Office visit Brannon Jackson DO 08/21/2012 Office visit Brannon Jackson DO 08/01/2012 Office visit Brannon Jackson DO 07/11/2012 Office visit Regina Mcnally TEMPLATE WORKER 06/14/2012 Office visit Anirudh Conway MD [...]
--- OUTSIDE RECORDS SUMMARY | 2018-10-25 08:37 | XMS REPORT ---
Author Author Brannon Jackson [facility] Address [address] [place], [place] [id number] Care Team Providers Care Test Data Developer Name Role Phone Brannon Jackson PCP Unavailable [...] Multivitamin, Hair, Skin,and Nails one tablet daily omeprazole 40 mg oral capsule,delayed release(DR/EC) 04/02/2015 03/27/2016 take 1 capsule (40 mg) by oral route once daily before a meal for 90 days losartan-hydrochlorothiazide 100-25 mg oral tablet 04/07/2015 04/01/2016 take 1 tablet by oral route once daily Accu-Chek Ana Cristina miscellaneous strip 07/14/2015 test glucose 2 times per day Dx: 250.00 Prozac 20 mg oral capsule 08/28/2015 08/22/2016 take 1 capsule (20 mg) by oral route once daily for 90 days cane miscellaneous device 09/01/2015 use as directed single point mckeon cyclobenzaprine 10 mg oral tablet 11/27/2015 11/21/2016 take 1 tablet by oral route every 8 hours as needed for 90 days muscle spasm aspirin 325 mg oral tablet take 1 tablet (325 mg) by oral route once daily hydrocodone-acetaminophen 10-325 mg oral tablet 02/05/2016 03/06/2016 take 1 tablet by oral route every 6 hours for 30 days amlodipine 5 mg oral tablet 02/05/2016 01/30/2017 take 1 tablet (5 mg) by oral route once daily for 90 days alprazolam 0.5 mg oral tablet 02/05/2016 03/06/2016 TAKE ONE TABLET BY MOUTH TWICE DAILY NEEDED amitriptyline 10 mg oral tablet 02/05/2016 01/30/2017 take 1 tablet by oral route once a day (at bedtime) for 90 days diclofenac sodium 75 mg oral tablet,delayed release (DR/EC) 02/05/20162016 take 1 tablet (75 mg) by oral route 2 times a day for 90 days estradiol 0.5 mg oral tablet 02/05/2016 01/30/2017 TAKE ONE TABLET BY MOUTH EVERY DAY gabapentin 300 mg oral capsule 02/05/2016 01/30/2017 take 1 capsule by oral route 2 times a day for 90 days losartan-hydrochlorothiazide 100-25 mg oral tablet 02/05/2016 01/30/2017 TAKE 1 TABLET DAILY for 90 days metformin 1,000 mg oral tablet 02/05/2016 01/30/2017 take 1 tablet by oral route 2 times a day for 90 days omeprazole 40 mg oral capsule,delayed release(DR/EC) 02/05/2016 01/30/2017 TAKE ONE CAPSULE BY MOUTH EVERY DAY for 90 days simvastatin 20 mg oral tablet 02/05/2016 01/30/2017 take 1 tablet (20 mg) by oral route once daily in the evening tolterodine 4 mg oral capsule,extended release 24hr 02/05/2016 01/30/2017 take 1 capsule (4 mg) by oral [...] 2 times per day for 7 days [place] Thyroid 120 mg oral tablet 12/14/2012 12/09/2013 [...] HC BMI BSA BMI Percentile O2 Sat(%) 02/05/2016 11:11:00 AM 136 mmHg 78 mmHg [...] Reviewed 12/13/2011 12:00 AM Kenalog per 10Mg Im-[facility]#[address]-48(Man) Reviewed 12/23/2011 12:00 AM DRAIN/INJ JOINT/BURSA W/O US Reviewed 12/23/2011 12:00 AM Kenalog 40 Mg Im-[facility]#0184-9099-53 Reviewed 05/25/2012 12:00 AM INJ TRIGGER POINT 1/2 MUSCL Reviewed 05/25/2012 12:00 AM Kenalog, Per 10 Mg [facility]#9177-2600-49 Reviewed 06/14/2012 12:00 AM DRAIN/INJ JOINT/BURSA W/O US Reviewed 06/14/2012 12:00 AM Kenalog, Per 10 Mg [facility]#3915-4385-38 Reviewed 07/11/2012 12:00 AM THER/PROPH/DIAG INJ SC/IM Reviewed 07/11/2012 12:00 AM Decadron 1 mg [facility]#[id number] (Manuel) Reviewed 07/11/2012 12:00 AM Depo-Medrol 80 mg [facility]#[id number]-Pijxnyip Reviewed 08/21/2012 12:00 AM ASSAY CARBOXYHB QUANT Reviewed 09/18/2012 12:00 AM DRAIN/INJ JOINT/BURSA W/O US Reviewed 09/18/2012 12:00 AM Kenalog, Per 10 Mg [facility]#1826-0795-16 Reviewed 10/13/2012 12:00 AM COMPREHEN METABOLIC PANEL Reviewed 10/13/2012 12:00 AM LIPID PANEL Reviewed 10/13/2012 12:00 AM GLYCOSYLATED HEMOGLOBIN TEST Reviewed 10/13/2012 12:00 AM MICROALBUMIN SEMIQUANT Reviewed 04/15/2010 12:00 AM MAMMOGRAM SCREENING Reviewed 12/06/2012 12:00 AM DRAIN/INJ JOINT/BURSA W/O US Reviewed 12/06/2012 12:00 AM Kenalog, Per 10 Mg [facility]#1371-0711-34 Reviewed 12/22/2012 12:00 AM TOTAL CORTISOL Reviewed 04/26/2013 12:00 AM DRAIN/INJ JOINT/BURSA W/O US Reviewed 04/26/2013 12:00 AM Kenalog, Per 10 Mg [facility]#6788-4263-30 Reviewed 05/10/2013 12:00 AM DRAIN/INJ JOINT/BURSA W/O US Reviewed 05/10/2013 12:00 AM Kenalog, Per 10 Mg [facility]#2460-1812-08 Reviewed 05/10/2013 12:00 AM DRAIN/INJ JOINT/BURSA W/O US Reviewed 05/10/2013 12:00 AM Kenalog, Per 10 Mg [facility]#2279-5831-14 Reviewed 05/28/2013 12:00 AM MAMMOGRAM SCREENING Reviewed [...] 03/05/2014 12:00 AM Kenalog, Per 10 Mg [facility]#2390-7555-92 Reviewed 04/05/2014 12:00 AM COMPLETE CBC W/AUTO [...] BILI 0.90 mg/dLCALCIUM 9.50 mg/dLeGFR >60 mL/min/1.73 [id number] 18.0 U/L 01/02/2014 10:02 AM GLUCOSE 134.0 [...] 12.0 ug/mLEstim. Avg Glu (eAG) 146 mg/dL 11/14/2015 6:40 AM Hemoglobin A1c 6.80 % History Of Immunizations Not available. History of [...] b 2011 3:26PM Pain in joint; Knee Feb [...] Feb 17 2014 8:20AM Hyperlipidemia, mixed Feb 17 2014 8:20AM Hypertension Feb 17 2014 8:20AM [...] 2016 11:14AM Hypertension Feb 05 2016 11:14AM Payers Insurance Name Company Name Plan Name Plan Number Policy Number Policy Group Number Start Date [facility] Gpa [id number] Saturday, 2015 [id number] Saturday, 2009 [facility] [id number] Wednesday, 2009 History of Encounters Visit Date Visit Type Provider 02/05/2016 Office visit Brannon Jackson DO 12/09/2015 Voided Cass BRAY 10/13/2015 Office visit Brannon Jackson DO 09/18/2015 Nurse visit Cass BRAY 09/03/2015 Procedures Reaganmichael Lehman DO 08/29/2015 Office visit Brannon Tidwellburt BALTAZAR 08/20/2015 Office visit Cass BRAY 08/01/2015 Office visit Cass BRAY 07/02/2015 Office visit Csas BRAY 06/04/2015 Office visit Cass BRAY 05/15/2015 [...] Conway MD 11/24/2012 Office visit Regina Mcnally METHODS ANALYST DATA PROCESSING 10/12/2012 [facility] Anirudh Conway MD 10/10/2012 Office visit Brannon Simpsonte DO 09/18/2012 Office visit Anirudh Conway MD 09/01/2012 Office visit Brannon Manuel DO 08/21/2012 Office visit Brannon Manuel DO 08/01/2012 Office visit Brannon Manuel DO 07/11/2012 Office visit Reigna Mcnally METHODS ANALYST DATA PROCESSING 06/14/2012 Office visit Anirudh Conway MD 05/25/2012 Office visit Anirudh Conway MD 05/04/2012 Office visit Brannon Simpsonte DO 12/23/2011 Office visit Anirudh Conway MD [...] Brannon Manuel DO 06/27/2009 Office visit Brannon Manuel DO
--- OUTSIDE RECORDS SUMMARY | 2018-10-25 08:38 | XMS REPORT ---
Author Author Brannon Jackson [facility] Address [address] [place], [place] [address] Care Team Providers Care Fabrication Welder Name Role Phone Brannon Jackson PCP Unavailable [...] AM GLYCOSYLATED HEMOGLOBIN TEST 04/18/2015 12:00 AM MAMMOGRAM SCREENING 04/28/2015 12:00 AM Medications Active Name Start Date Estimated Completion Date SIG Comments Multivitamin, Hair, Skin,and Nails one tablet daily Prozac oral capsule 20 mg 06/25/2014 09/18/2015 take 1 capsule (20 mg) by oral route once daily for 90 days 3 mo supply for mail order through [employer] amitriptyline oral tablet 10 mg 08/29/2014 11/22/2015 take 1 tablet by oral route once a day (at bedtime) for 90 days mail order Accu-Chek Comfort Curve Test miscellaneous strip 09/20/2014 Test glucose 2 times a day Dx: 250.00 Detrol LA oral capsule,extended release 24hr 4 mg 11/11/2014 11/06/2015 take 1 capsule (4 mg) by oral route once daily for 90 days tolterodine oral capsule,extended release 24hr 4 mg 04/02/2015 03/27/2016 take 1 capsule (4 mg) by oral route once daily for 90 days amlodipine Oral Tablet 5 mg 04/02/2015 03/27/2016 take 1 tablet (5 mg) by oral route once daily for 90 days diclofenac sodium oral tablet,delayed release (DR/EC) 75 mg 04/02/20152015 take 1 tablet (75 mg) by oral route 2 times a day for 90 days estradiol Oral Tablet 0.5 mg 04/02/2015 03/27/2016 TAKE ONE TABLET BY MOUTH EVERY DAY gabapentin oral capsule 300 mg 04/02/2015 03/27/2016 take 1 capsule by oral route 2 times a day for 90 days metformin Oral Tablet 1,000 mg 04/02/2015 03/27/2016 take 1 tablet by oral route 2 times a day for 90 days Simvastatin Oral Tablet 20 mg 04/02/2015 03/27/2016 take 1 tablet (20 mg) by oral route once daily in the evening omeprazole oral capsule,delayed release(DR/EC) 40 mg 04/02/2015 03/27/2016 take 1 capsule (40 mg) by oral route once daily before a meal for 90 days omeprazole oral capsule,delayed release(DR/EC) 40 mg 04/06/2015 TAKE ONE CAPSULE BY MOUTH EVERY DAY losartan-hydrochlorothiazide oral tablet 100-25 mg 04/07/2015 04/01/2016 take 1 tablet by oral route once daily hydrocodone-acetaminophen oral tablet 10-325 mg 04/09/2015 05/09/2015 take 1 tablet by oral route every 8 hours for 30 days alprazolam Oral tablet 0.5 mg 2015 05/21/2015 TAKE ONE TABLET BY MOUTH TWICE DAILY [...] 2 times per day for 7 days [place] Thyroid oral tablet 120 mg 12/14/2012 12/09/2013 [...] ROUTE DAILY FOR 30 DAYS oxybutynin chloride oral tablet extended release 24hr 10 mg 09/19/20142014 take 1 tablet (10 mg) by oral route once daily for 90 days Hysingla ER oral tablet,oral only,ext.rel.24 hr 30 mg 12/12/2014 01/09/2015 One tablet by mouth every 24 hours. expensive pantoprazole oral tablet,delayed release (DR/EC) 40 mg 12/19/2014 04/02/2015 take 1 tablet (40 mg) [...] HC BMI BSA BMI Percentile O2 Sat(%) 04/28/2015 8:03:00 AM 134 mmHg 78 mmHg [...] BILI 0.90 mg/dLCALCIUM 9.50 mg/dLeGFR >60 mL/min/1.73 [id number] 18.0 U/L 01/02/2014 10:02 AM GLUCOSE 134.0 [...] 4:20PM Fibromyalgia b 2011 4:20PM Lumbago Feb 6 2011 4:20PM Cervicalgia b 2011 4:20PM Trochanteric [...] Dysuria b 13 2014 12:09PM Gastroesophageal Reflux Feb 2014 [...] for Breast Cancer Apr 28 2015 8:05AM Payers Insurance Name Company Name Plan Name Plan Number Policy Number Policy Group Number Start Date [facility] [place] [id number] Wednesday, 2009 [facility] [facility] [place] [id number] Saturday, 2009 History of Encounters Visit Date Visit Type Provider 04/28/2015 Office visit Brannon Jackson DO 04/09/2015 Office visit Cass BRAY 04/01/2015 Office visit Brannon Jackson DO 03/10/2015 Office visit Cass BRAY 02/25/2015 Office visit Cass BRAY 02/05/2015 Nurse visit Cass BRAY 12/17/2014 Office visit Brannon Jackson DO 12/17/2014 [facility] Dinesh Zhu MD 12/12/2014 Office visit Cass BRAY 10/29/2014 Office visit Cass BRAY 10/02/2014 Office visit Cass BRAY 09/20/2014 Office visit Brannon Jackson DO 09/05/2014 Office visit Cass BRAY 07/29/2014 Office visit Cass BRAY 07/18/2014 Office visit Brannon Jackson DO 07/03/2014 Office visit Rob Ruiz APRN 06/11/2014 Office visit Cass BRAY 04/29/2014 Office visit Brannon Jackson DO 04/29/2014 Office visit Cass BRAY 04/05/2014 Office visit Harjinder Paiz PA-C 02/25/2014 Office visit Cass ARCINIEGAP 01/02/2014 Office visit Cass ARCINIEGAP 12/18/2013 Office visit Cass ARCINIEGAP 09/13/2013 Office visit Brannon Jackson DO 08/27/2013 Office visit Regina Mcnally MOBILE HEALTH VEHICLE OPERATOR 08/17/2013 Office visit Ray Tripathi APRN 05/21/2013 Office visit Brannon Jackson DO 05/10/2013 Office visit Anirudh Conway MD 04/26/2013 Office visit Anirudh Conway MD 12/22/2012 Office visit Brannon Jackson DO 12/14/2012 [facility] Sandra Ca MD 12/12/2012 Office visit Brannon Jackson DO 12/12/2012 [facility] Sandra Ca MD 12/06/2012 Office visit Anirudh Conway MD 11/24/2012 Office visit Regina Mcnally MOBILE HEALTH VEHICLE OPERATOR 10/12/2012 [facility] Anirudh Conway MD [...] 10/28/2011 Office visit Brannon Manuel DO 10/22/2011 [facility] Valery Cerna MD 10/21/2011 [facility] Valery Cerna MD 10/19/2011 Office visit Brannon Jackson DO 10/19/2011 [facility] Anderson Dawkins MD 10/07/2011 Office visit Brannon Manuel DO 04/27/2011 Office visit Brannon Manuel DO 04/16/2011 Office visit Brannon Manuel DO 12/18/2010 Office visit Brannon Jackson DO 11/17/2010 Office visit Brannon Jackson DO 10/08/2010 Office visit Brannon aJckson DO 08/18/2010 Office visit Regina Mcnally APRN 02/03/2010 Office visit Brannon Jackson DO 12/02/2009 Office visit Brannon Jackson DO 06/27/2009 Office visit Brannon Jackson DO
--- OUTSIDE RECORDS SUMMARY | 2018-10-25 08:40 | XMS REPORT ---
Author Author Brannon Jackson [facility] Address [address] [place], [place] [address] Care Team Providers Care Manager Client Name Role Phone Brannon Jackson PCP Unavailable [...] 2 times per day for 7 days [place] Thyroid 120 mg oral tablet 12/14/2012 12/09/2013 [...] Reviewed 12/13/2011 12:00 AM Kenalog per 10Mg Im-[facility]#[address]-60(Man) Reviewed 12/23/2011 12:00 AM DRAIN/INJ JOINT/BURSA W/O US Reviewed 12/23/2011 12:00 AM Kenalog 40 Mg Im-[facility]#2337-9732-15 Reviewed 05/25/2012 12:00 AM INJ TRIGGER POINT 1/2 MUSCL Reviewed 05/25/2012 12:00 AM Kenalog, Per 10 Mg [facility]#8535-5156-08 Reviewed 06/14/2012 12:00 AM DRAIN/INJ JOINT/BURSA W/O US Reviewed 06/14/2012 12:00 AM Kenalog, Per 10 Mg [facility]#3655-9472-84 Reviewed 07/11/2012 12:00 AM THER/PROPH/DIAG INJ SC/IM Reviewed 07/11/2012 12:00 AM Decadron 1 mg [facility]#[id number] (Manuel) Reviewed 07/11/2012 12:00 AM Depo-Medrol 80 mg [facility]#[id number]-Ccjfwooc Reviewed 08/21/2012 12:00 AM ASSAY CARBOXYHB QUANT Reviewed 09/18/2012 12:00 AM DRAIN/INJ JOINT/BURSA W/O US Reviewed 09/18/2012 12:00 AM Kenalog, Per 10 Mg [facility]#4100-3042-03 Reviewed 10/13/2012 12:00 AM COMPREHEN METABOLIC PANEL Reviewed 10/13/2012 12:00 AM LIPID PANEL Reviewed 10/13/2012 12:00 AM GLYCOSYLATED HEMOGLOBIN TEST Reviewed 10/13/2012 12:00 AM MICROALBUMIN SEMIQUANT Reviewed 04/15/2010 12:00 AM MAMMOGRAM SCREENING Reviewed 12/06/2012 12:00 AM DRAIN/INJ JOINT/BURSA W/O US Reviewed 12/06/2012 12:00 AM Kenalog, Per 10 Mg [facility]#6591-4929-97 Reviewed 12/22/2012 12:00 AM TOTAL CORTISOL Reviewed 04/26/2013 12:00 AM DRAIN/INJ JOINT/BURSA W/O US Reviewed 04/26/2013 12:00 AM Kenalog, Per 10 Mg [facility]#4092-1082-56 Reviewed 05/10/2013 12:00 AM DRAIN/INJ JOINT/BURSA W/O US Reviewed 05/10/2013 12:00 AM Kenalog, Per 10 Mg [facility]#0619-6730-14 Reviewed 05/10/2013 12:00 AM DRAIN/INJ JOINT/BURSA W/O US Reviewed 05/10/2013 12:00 AM Kenalog, Per 10 Mg [facility]#8714-8262-75 Reviewed 05/28/2013 12:00 AM MAMMOGRAM SCREENING Reviewed [...] 03/05/2014 12:00 AM Kenalog, Per 10 Mg [facility]#8348-8509-88 Reviewed 04/05/2014 12:00 AM COMPLETE CBC W/AUTO [...] BILI 0.90 mg/dLCALCIUM 9.50 mg/dLeGFR >60 mL/min/1.73 [id number] 18.0 U/L 01/02/2014 10:02 AM GLUCOSE 134.0 [...] 4.69 HGB 14.20 g/dLHCT 42.0 %MCV 90.0 [facility] 33.80 g/dLRDW CV 12.70 %MPV 10.30 fLPLT [...] Group Number Start Date [facility] [id number] Saturday, 2015 [employer] [place] [id number] Saturday, 2009 [employer] [place] [id number] Wednesday, 2009 History of Encounters Visit Date [...] Manuel DO 07/03/2014 Office visit Rob Downingran MEDICAL BILLING COORDINATOR 06/11/2014 Office visit Cass Arellano PATENT LAWYER 04/29/2014 Office visit Cass Arellano PATENT LAWYER 04/29/2014 Office visit Brannon Manuel DO 04/05/2014 Office visit Harjinder Paiz PA-C 02/25/2014 Office visit Cass Arellano PATENT LAWYER 01/02/2014 Office visit Cass Arellano PATENT LAWYER 12/18/2013 Office visit Cass Arellano PATENT LAWYER 09/13/2013 Office visit Brannon Manuel DO 08/27/2013 Office visit Regina Mcnally MEDICAL BILLING COORDINATOR 08/17/2013 Office visit Ray Tripathi MEDICAL BILLING COORDINATOR 05/21/2013 Office visit Brannon Jackson DO 05/10/2013 Office visit Anirudh Conway MD 04/26/2013 Office visit Anirudh Conway MD 12/22/2012 Office visit Brannon Jackson DO 12/14/2012 [facility] Sandra Ca MD 12/12/2012 Office visit Brannon Jackson DO 12/12/2012 [facility] Sandra Ca MD 12/06/2012 Office visit Anirudh Conway MD 11/24/2012 Office visit Regina Mcnally MEDICAL BILLING COORDINATOR 10/12/2012 [facility] Anirudh Conway MD 10/10/2012 Office visit Brannon Jackson DO 09/18/2012 Office visit Anirudh Conway MD 09/01/2012 Office visit Brannon Jackson DO 08/21/2012 Office visit Brannon Jackson DO 08/01/2012 Office visit Brannon Jackson DO 07/11/2012 Office visit Regina Mcnally MEDICAL BILLING COORDINATOR 06/14/2012 Office visit Anirudh Conway MD 05/25/2012 Office visit Anirudh Conway MD 05/04/2012 Office visit Brannon Jackson DO 12/23/2011 Office visit Anirudh Conway MD 12/16/2011 Office visit Brannon Jackson DO 12/06/2011 Office visit Anirudh Conway MD 11/11/2011 Office visit Brannon Jackson DO 10/28/2011 Office visit Brannon Jackson DO 10/22/2011 [facility] Valery Cerna MD 10/21/2011 [facility] Valery Cerna MD 10/19/2011 Office visit Brannon Jackson DO 10/19/2011 [facility] Anderson Dawkins MD 10/07/2011 Office [...]
--- OUTSIDE RECORDS SUMMARY | 2018-10-25 08:43 | XMS REPORT ---
Author Author Brannon Jackson [facility] Address [address] [place], [place] [address] Care Team Providers Care Pharmacologist Name Role Phone Brannon Jackson PCP Unavailable [...] TAKE 1 TABLET DAILY for 90 days Tivorbex 40 mg oral capsule 12/02/2016 take 1 capsule (40 mg) by oral route 2 times per day with food amlodipine 5 mg oral tablet 01/18/2017 01/13/2018 [...] daily lisinopril-hydrochlorothiazide 20-12.5 mg oral tablet 01/19/2017 take 1 tablet by oral route once daily OneTouch Verio miscellaneous strip 02/03/2017 Test glucose 4 times a day Dx: e11.65 hydrocodone-acetaminophen 10-325 mg oral tablet 02/17/2017 03/19/2017 take 1 tablet by oral route every 6 hours for 30 days Janumet 50-1,000 mg oral tablet 02/21/2017 02/16/2018 take 1 tablet by oral route 2 times per day with meals for 90 days tolterodine 4 mg oral capsule,extended release 24hr 03/04/2017 02/27/2018 take 1 capsule (4 mg) by oral [...] 2 times per day for 7 days [place] Thyroid 120 mg oral tablet 12/14/2012 12/09/2013 [...] Test glucose twice a day. Dx e11.9 Problem List Description Status Onset Depressive Disorder [...] HC BMI BSA BMI Percentile O2 Sat(%) 01/25/2017 3:22:00 PM 168 mmHg 98 mmHg [...] Reviewed 12/13/2011 12:00 AM Kenalog per 10Mg Im-[facility]#[address]-34(Man) Reviewed 12/23/2011 12:00 AM DRAIN/INJ JOINT/BURSA W/O US Reviewed 12/23/2011 12:00 AM Kenalog 40 Mg [facility]#6734-7407-18 Reviewed 11/19/2016 12:00 AM X-RAY EXAM OF HAND Reviewed 01/19/2017 12:00 AM COMPLETE CBC W/AUTO DIFF WBC Reviewed 01/19/2017 12:00 AM COMPREHEN METABOLIC PANEL Reviewed 01/19/2017 12:00 AM GLYCOSYLATED HEMOGLOBIN TEST Reviewed 05/25/2012 12:00 AM INJ TRIGGER POINT 1/2 MUSCL Reviewed 05/25/2012 12:00 AM Kenalog, Per 10 Mg [facility]#9018-5380-76 Reviewed 06/14/2012 12:00 AM DRAIN/INJ JOINT/BURSA W/O US Reviewed 06/14/2012 12:00 AM Kenalog, Per 10 Mg [facility]#1333-5670-45 Reviewed 07/11/2012 12:00 AM THER/PROPH/DIAG INJ SC/IM Reviewed 07/11/2012 12:00 AM Decadron 1 mg [facility]#[id number] (Manuel) Reviewed 07/11/2012 12:00 AM Depo-Medrol 80 mg [facility]#[id number]-Mgaznecd Reviewed 08/21/2012 12:00 AM ASSAY CARBOXYHB QUANT Reviewed 09/18/2012 12:00 AM DRAIN/INJ JOINT/BURSA W/O US Reviewed 09/18/2012 12:00 AM Kenalog, Per 10 Mg [facility]#8170-8361-23 Reviewed 10/13/2012 12:00 AM COMPREHEN METABOLIC PANEL Reviewed 10/13/2012 12:00 AM LIPID PANEL Reviewed 10/13/2012 12:00 AM GLYCOSYLATED HEMOGLOBIN TEST Reviewed 10/13/2012 12:00 AM MICROALBUMIN SEMIQUANT Reviewed 04/15/2010 12:00 AM MAMMOGRAM SCREENING Reviewed 12/06/2012 12:00 AM DRAIN/INJ JOINT/BURSA W/O US Reviewed 12/06/2012 12:00 AM Kenalog, Per 10 Mg [facility]#0778-6638-09 Reviewed 12/22/2012 12:00 AM TOTAL CORTISOL Reviewed 04/26/2013 12:00 AM DRAIN/INJ JOINT/BURSA W/O US Reviewed 04/26/2013 12:00 AM Kenalog, Per 10 Mg [facility]#9820-0455-16 Reviewed 05/10/2013 12:00 AM DRAIN/INJ JOINT/BURSA W/O US Reviewed 05/10/2013 12:00 AM Kenalog, Per 10 Mg [facility]#1034-2809-35 Reviewed 05/10/2013 12:00 AM DRAIN/INJ JOINT/BURSA W/O US Reviewed 05/10/2013 12:00 AM Kenalog, Per 10 Mg [facility]#4661-7882-77 Reviewed 05/28/2013 12:00 AM MAMMOGRAM SCREENING Reviewed [...] Kenalog, Per 10 Mg [facility]#1156-6098-80 Reviewed 04/05/2014 12:00 AM COMPLETE CBC W/AUTO [...] 3:25PM Hyperlipidemia, mixed Jan 25 2017 3:25PM Payers Insurance Name Company Name Plan Name Plan Number Policy Number Policy Group Number Start Date [facility] [id number] Saturday, 2015 [facility] [id number] Saturday, 2009 [facility] [id number] Wednesday, 2009 History of Encounters Visit Date Visit Type Provider 01/25/2017 Office visit Brannon Jackson DO 01/19/2017 Office visit Regina Mcnally HEAVY EQUIPMENT OPERATOR/PAVER 01/04/2017 Procedures Reagan Lehman DO 12/24/2016 Office visit Brannon Jackson DO 12/23/2016 Surgery Reagan Lehman DO 12/14/2016 Office visit Reagan Lehman DO 11/25/2016 Office visit Brannon Jackson DO 11/19/2016 Office visit Sandra Milton HEAVY EQUIPMENT OPERATOR/PAVER 11/02/2016 Office visit Lakia Reina HEAVY EQUIPMENT OPERATOR/PAVER 09/09/2016 Office visit Brannon Jackson DO 05/18/2016 Office visit Brannon Jackson DO 05/05/2016 Office visit 05/05/2016 Office visit Brannon Jackson DO 02/05/2016 Office visit Brannon Jackson DO 12/09/2015 Voided Cass BRAY 10/13/2015 Office visit Brannon Jackson DO 09/18/2015 Nurse visit Cass BRAY 09/03/2015 Procedures Reagan Lehman DO 08/29/2015 Office visit Brannon Jackson 08/20/2015 Office visit Cass BRAY 08/01/2015 Office [...] Regina Mcnally APRN 08/17/2013 Office visit Ray KirbyMonse Tripathi HEAVY EQUIPMENT OPERATOR/PAVER 05/21/2013 Office visit Brannon Manuel DO 05/10/2013 Office visit Anirudh Conway MD 04/26/2013 Office visit Anirudh Conway MD 12/22/2012 Office visit Brannon Manuel DO 12/14/2012 [facility] Sandra Ca MD 12/12/2012 Office visit Brannon Manuel DO 12/12/2012 [facility] Sandra Ca MD 12/06/2012 Office visit Anirudh Conway MD 11/24/2012 Office visit Regina Mcnally HEAVY EQUIPMENT OPERATOR/PAVER 10/12/2012 [facility] Anirudh Conway MD 10/10/2012 Office visit Brannon Simpsonte DO 09/18/2012 Office visit Anirudh Conway MD 09/01/2012 Office visit Brannon Simpsonte DO 08/21/2012 Office visit Brannon Jackson DO 08/01/2012 Office visit Brannon Simpsonte DO 07/11/2012 Office visit Regina Mcnally HEAVY EQUIPMENT OPERATOR/PAVER 06/14/2012 Office visit Anirudh Conway MD 05/25/2012 [...] 10/19/2011 Office visit Brannon Manuel DO 10/19/2011 [facility] Anderson Dawkins MD 10/07/2011 Office visit Brannon Manuel DO 04/27/2011 Office visit Brannon Manuel DO 04/16/2011 Office visit Brannon Manuel DO 12/18/2010 Office visit Brannon Manuel DO 11/17/2010 Office visit Brannon Manule DO 10/08/2010 Office visit Brannon Manuel DO 08/18/2010 Office visit Regina Mcnally HEAVY EQUIPMENT OPERATOR/PAVER 02/03/2010 Office visit Brannon Manuel DO 12/02/2009 Office visit Brannon Manuel DO 06/27/2009 Office visit Brannon Manuel DO
--- OUTSIDE RECORDS SUMMARY | 2018-10-25 08:44 | XMS REPORT ---
Author Author Cass Arellano [facility] Address [address] [place], [place] [id number] Care Team Providers Care Associate Media Planner Name Role Phone Cass Arellano PCP Allergies [...] Multivitamin, Hair, Skin,and Nails one tablet daily amlodipine 5 mg oral tablet 04/02/2015 03/27/2016 [...] 09/01/2015 use as directed single point mike amitriptyline 10 mg oral tablet 11/03/2015 02/01/2016 take 1 tablet by oral route once a day (at bedtime) for 90 days omeprazole 40 mg oral capsule,delayed release(DR/EC) 11/24/2015 11/18/2016 TAKE ONE CAPSULE BY MOUTH EVERY DAY for 90 days tolterodine 4 mg oral capsule,extended release 24hr 11/24/2015 11/18/2016 take 1 capsule (4 mg) by oral route once daily for 90 days alprazolam 0.5 mg oral tablet 11/24/2015 12/24/2015 TAKE ONE TABLET BY MOUTH TWICE DAILY NEEDED cyclobenzaprine 10 mg oral tablet 11/27/2015 11/21/2016 take 1 tablet by oral route every 8 hours as needed for 90 days muscle spasm Name Start Date Expiration Date SIG Comments [...] 2 times per day for 7 days [place] Thyroid 120 mg oral tablet 12/14/2012 12/09/2013 [...] 2 times per day for 7 days hydrocodone-acetaminophen 10-325 mg oral tablet 10/09/2015 11/08/2015 [...] Reviewed 12/13/2011 12:00 AM Kenalog per 10Mg Im-Nd#[address]-71(Man) Reviewed 12/23/2011 12:00 AM DRAIN/INJ JOINT/BURSA W/O US Reviewed 12/23/2011 12:00 AM Kenalog 40 Mg Im-Ndc#7595-5521-43 Reviewed 05/25/2012 12:00 AM INJ TRIGGER POINT 1/2 MUSCL Reviewed 05/25/2012 12:00 AM Kenalog, Per 10 Mg NDC#6891-4380-17 Reviewed 06/14/2012 12:00 AM DRAIN/INJ JOINT/BURSA W/O US Reviewed 06/14/2012 12:00 AM Kenalog, Per [address] [facility]#2354-8173-96 Reviewed 07/11/2012 12:00 AM THER/PROPH/DIAG INJ SC/IM Reviewed 07/11/2012 12:00 AM Dec[address] [facility]#[id number] (Manuel) Reviewed 07/11/2012 12:00 AM Depo-Medrol [address] [facility]#[id number]-Dfxiuoyz Reviewed 08/21/2012 12:00 AM ASSAY CARBOXYHB QUANT Reviewed 09/18/2012 12:00 AM DRAIN/INJ JOINT/BURSA W/O US Reviewed 09/18/2012 12:00 AM Kenalog, Per [address] [facility]#8628-6392-30 Reviewed 10/13/2012 12:00 AM COMPREHEN METABOLIC PANEL Reviewed 10/13/2012 12:00 AM LIPID PANEL Reviewed 10/13/2012 12:00 AM GLYCOSYLATED HEMOGLOBIN TEST Reviewed 10/13/2012 12:00 AM MICROALBUMIN SEMIQUANT Reviewed 04/15/2010 12:00 AM MAMMOGRAM SCREENING Reviewed 12/06/2012 12:00 AM DRAIN/INJ JOINT/BURSA W/O US Reviewed 12/06/2012 12:00 AM Kenalog, Per [address] [facility]#9269-9344-00 Reviewed 12/22/2012 12:00 AM TOTAL CORTISOL Reviewed 04/26/2013 12:00 AM DRAIN/INJ JOINT/BURSA W/O US Reviewed 04/26/2013 12:00 AM Kenalog, Per [address] [facility]#1977-6720-08 Reviewed 05/10/2013 12:00 AM DRAIN/INJ JOINT/BURSA W/O US Reviewed 05/10/2013 12:00 AM Kenalog, Per [address] [facility]#9040-1043-68 Reviewed 05/10/2013 12:00 AM DRAIN/INJ JOINT/BURSA W/O US Reviewed 05/10/2013 12:00 AM Kenalog, Per [address] [facility]#1139-6499-04 Reviewed 05/28/2013 12:00 AM MAMMOGRAM SCREENING Reviewed [...] 03/05/2014 12:00 AM Kenalog, Per [address] [facility]#7013-0562-17 Reviewed 04/05/2014 12:00 AM COMPLETE CBC W/AUTO [...] BILI 0.90 mg/dLCALCIUM 9.50 mg/dLeGFR >60 mL/min/1.73 [id number] 18.0 U/L 01/02/2014 10:02 AM GLUCOSE 134.0 [...] shoulder region-right Nov 24 2012 10:47AM Bursitis b 2012 3:44PM Diabetes Mellitus, Type II Dec [...] in joint; Knee b 2014 3:20PM Lumbago Feb 2014 3:20PM Pain in joint; shoulder region, Right b 2014 3:20PM Osteoarthritis, Left Hip b 2014 3:20PM Fatigue b 2014 3:20PM Diabetes Mellitus, Type II Feb 2014 12:09PM Dysuria Feb 2014 12:09PM Gastroesophageal Reflux Feb 2014 8:20AM Diabetes Mellitus, Type II b 2014 8:20AM Hyperlipidemia, mixed Dec 17 2014 8:20AM Hypertension b 2014 8:20AM Overactive bladder Feb 2014 8:20AM [...] Mellitus, Type II Nov 10 2015 4:35PM Payers Insurance Name Company Name Plan Name Plan Number Policy Number Policy Group Number Start Date [facility] [id number] Saturday, 2015 [employer] [facility] [id number] Saturday, 2009 [employer]BS [employer] [facility] [id number] Wednesday, 2009 History of Encounters Visit Date Visit Type Provider 12/09/2015 Voided Cass BRAY 10/13/2015 Office visit [...] Manuel DO 12/12/2014 Office visit Cass Arellano AREA FIELD MANAGER 10/29/2014 Office visit Cass Arellano AREA FIELD MANAGER 10/02/2014 Office visit Cass Arellano AREA FIELD MANAGER 09/20/2014 Office visit Brannon Manuel DO 09/05/2014 Office visit Cass Arellano AREA FIELD MANAGER 07/29/2014 Office visit Cass Arellano AREA FIELD MANAGER 07/18/2014 Office visit Brannon Manuel DO 07/03/2014 Office visit Rob Ruiz COMMERCIAL INTERN 06/11/2014 Office visit Cass Arellano AREA FIELD MANAGER 04/29/2014 Office visit Cass Arellano AREA FIELD MANAGER 04/29/2014 Office visit Brannon Manuel DO 04/05/2014 Office visit Harjinder Paiz PA-C 02/25/2014 Office visit Cass ARCINIEGAP 01/02/2014 Office visit Cass ARCINIEGAP 12/18/2013 Office visit Cass ARCINIEGAP 09/13/2013 Office visit Brannon Jackson DO 08/27/2013 Office visit Regina Mcnally COMMERCIAL INTERN 08/17/2013 Office visit Ray Tripathi COMMERCIAL INTERN 05/21/2013 Office visit Brannon Jackson DO 05/10/2013 Office visit Anirudh Conway MD 04/26/2013 Office visit Anirudh Conway MD 12/22/2012 Office visit Brannon Jackson DO 12/14/2012 [facility] Sandra Ca MD 12/12/2012 Office visit Brannon Jackson DO 12/12/2012 [facility] Sandra Ca MD 12/06/2012 Office visit Anirudh Conway MD 11/24/2012 Office visit Regina Mcnally COMMERCIAL INTERN 10/12/2012 [facility] Anirudh Conway MD 10/10/2012 Office visit Brannon Jackson DO 09/18/2012 Office visit Anirudh Conway MD 09/01/2012 Office visit Brannon Jackson DO 08/21/2012 Office visit Brannon Jackson DO 08/01/2012 Office visit Brannon Jackson DO 07/11/2012 Office visit Regina Mcnally COMMERCIAL INTERN 06/14/2012 Office visit Anirudh Conway MD 05/25/2012 [...] Jackson DO 08/18/2010 Office visit Regina Mcnally COMMERCIAL INTERN 02/03/2010 Office visit Brannon Jackson DO 12/02/2009 Office visit Brannon Jackson DO 06/27/2009 Office visit Brannon Jackson DO
--- OUTSIDE RECORDS SUMMARY | 2018-10-25 08:46 | XMS REPORT ---
Author Author Brannon Jackson [facility] Address [address] [place], [place] [address] Care Team Providers Care Pressure Tester Operator Name Role Phone Brannon Jackson PCP [...] Multivitamin, Hair, Skin,and Nails one tablet daily losartan-hydrochlorothiazide oral tablet 100-25 mg 06/24/2014 06/19/2015 take 1 tablet by oral route once daily Prozac oral capsule 20 mg 06/25/2014 09/18/2015 take 1 capsule (20 mg) by oral route once daily for 90 days 3 mo supply for mail order through [facility] amitriptyline oral tablet 10 mg 08/29/2014 11/22/2015 take 1 tablet by oral route once a day (at bedtime) for 90 days mail order Accu-Chek Comfort Curve Test miscellaneous strip 09/20/2014 Test glucose 2 times a day Dx: 250.00 Detrol [place] oral capsule,extended release 24hr 4 mg 11/11/2014 11/06/2015 take 1 capsule (4 mg) by oral route once daily for 90 days hydrocodone-acetaminophen oral tablet 10-325 mg 03/10/2015 04/09/2015 take 1 tablet by oral route every 6 hours as needed for pain for 30 days alprazolam Oral tablet 0.5 mg 03/13/2015 04/12/2015 TAKE ONE TABLET BY MOUTH TWICE DAILY NEEDED tolterodine oral capsule,extended release 24hr 4 mg [...] TAKE ONE CAPSULE BY MOUTH EVERY DAY Name Start Date Expiration Date SIG Comments [...] 2 times per day for 7 days [place] Thyroid oral tablet 120 mg 12/14/2012 12/09/2013 [...] BILI 0.90 mg/dLCALCIUM 9.50 mg/dLeGFR >60 mL/min/1.73 [id number] 18.0 U/L 01/02/2014 10:02 AM GLUCOSE 134.0 [...] Hip Dec 06 2011 4:20PM Bursitis Feb 6 2011 4:20PM Pain in joint; Knee Feb 6 2011 4:20PM Fibromyalgia Feb 2011 4:20PM Lumbago Feb 6 2011 4:20PM [...] 2015 10:30AM Hypersomnia Apr 01 2015 10:30AM Payers Insurance Name Company Name Plan Name Plan Number Policy Number Policy Group Number Start Date [facility] [place] [id number] Wednesday, 2009 [employer] [facility] [facility] [place] [id number] Saturday, 2009 History of Encounters Visit Date Visit Type Provider 04/01/2015 Office visit Brannon Jackson DO 03/10/2015 Office visit Cass BRAY 02/25/2015 Office visit Cass BRAY 02/05/2015 Nurse visit Cass BRAY 12/17/2014 Office visit Brannon Jackson DO 12/17/2014 Hospital Dinesh Zhu MD 12/12/2014 Office visit [...] Conway MD 11/24/2012 Office visit Regina Mcnally SURVEYOR ROD HELPER 10/12/2012 [facility] Anirudh Conway MD 10/10/2012 Office visit Brannon Jackson DO 09/18/2012 Office visit Anirudh Conway MD 09/01/2012 Office visit Brannon Jackson DO 08/21/2012 Office visit Brannon Jackson DO 08/01/2012 Office visit Brannon Jackson DO 07/11/2012 Office visit Regina Mcnally SURVEYOR ROD HELPER 06/14/2012 Office visit Anirudh Conway MD 05/25/2012 Office visit Anirudh Conway MD 05/04/2012 Office visit Brannon Jackson DO 12/23/2011 Office visit Anirudh Conway MD 12/16/2011 Office visit Brannon Jackson DO 12/06/2011 Office visit Anirudh Conway MD 11/11/2011 Office visit Brannon Jackson DO 10/28/2011 Office visit Brannon Jackson DO 10/22/2011 [facility] Valery Cerna [...] Jackson DO 08/18/2010 Office visit Regina Mcnally SURVEYOR ROD HELPER 02/03/2010 Office visit Brannon Jackson DO 12/02/2009 Office visit Brannon Jackson DO 06/27/2009 Office visit Brannon Jackson DO
--- OUTSIDE RECORDS SUMMARY | 2018-10-25 08:48 | XMS REPORT ---
Author Author Harjinder Paiz [facility] Address [address] [place], [place] [id number] Care Team Providers Care Missile Inspector Name Role Phone Harjinder Paiz PCP ManuelBrannon mace PreferredProvider Allergies and Adverse Reactions Name Reaction Notes Promethazine vomiting Zofran vomiting Plan of Treatment Planned Activity Comments Planned Date Planned Time Plan/Goal MRI pelvis and hip left wo contrast 08/01/2015 12:00 AM MRI THORACIC SPINE W/O CONTRAST 12/15/2016 12:00 AM MRI LUMBAR SPINE W/O CONTRAST 12/15/2016 12:00 AM Lumbar Spine 2-3 Views - MOB 11/09/2017 12:00 AM Ganglion cyst right hand 12/14/2016 2:30 PM Medications Active Name Start Date Estimated Completion Date SIG Comments Multivitamin, Hair, Skin,and Nails one tablet daily cane miscellaneous device 09/01/2015 use as directed single point mckeon OneTouch Verio miscellaneous strip 02/03/2017 Test glucose [...] release(DR/EC) 09/26/2017 09/21/2018 TAKE 1 CAPSULE DAILY gabapentin 300 mg oral capsule 09/26/2017 09/21/2018 TAKE 1 CAPSULE TWICE DAILY simvastatin 20 mg oral tablet 09/26/2017 09/21/2018 TAKE 1 TABLET ONCE DAILY INTHE EVENING metformin 1,000 mg oral tablet 09/26/2017 09/21/2018 TAKE 1 TABLET TWICE A DAY cyclobenzaprine 10 mg oral tablet 09/26/2017 09/21/2018 TAKE 1 TABLET EVERY 8 HOURSAS NEEDED FOR MUSCLE SPASM Prozac 20 mg oral capsule 09/26/2017 09/21/2018 TAKE 1 CAPSULE DAILY amitriptyline 10 mg oral tablet 09/26/2017 09/21/2018 TAKE 1 TABLET ONCE A DAY ATBEDTIME Zyrtec-D 5-120 mg oral tablet extended release 12 hr 10/05/2017 take 1 tablet by oral route 2 [...] by topical route 4 times per day hydrocodone-acetaminophen 10-325 mg oral tablet 11/09/2017 12/09/2017 take 1 tablet by oral route every 6 hours for 30 days Medrol (Amado) 4 mg oral tablets,dose pack 11/09/2017 take as directed Name Start Date Expiration Date SIG Comments [...] 2 times per day for 7 days [place] Thyroid 120 mg oral tablet 12/14/2012 12/09/2013 [...] mg) po at HS x 7 days Zithromax 250 mg oral tablet 10/28/2017 11/02/2017 [...] HC BMI BSA BMI Percentile O2 Sat(%) 11/09/2017 5:10:00 PM 146 mmHg 89 mmHg [...] 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 in History of [...] Reviewed 12/13/2011 12:00 AM Kenalog per 10Mg Im-[facility]#[address]-90(Man) Reviewed 12/23/2011 12:00 AM DRAIN/INJ JOINT/BURSA W/O US Reviewed 12/23/2011 12:00 AM Kenalog 40 Mg Im-[facility]#7852-8233-00 Reviewed 11/19/2016 12:00 AM X-RAY EXAM OF HAND Reviewed 01/19/2017 12:00 AM COMPLETE CBC W/AUTO DIFF WBC Reviewed 01/19/2017 12:00 AM COMPREHEN METABOLIC PANEL Reviewed 01/19/2017 12:00 AM GLYCOSYLATED HEMOGLOBIN TEST Reviewed 05/25/2012 12:00 AM INJ TRIGGER POINT 1/2 MUSCL Reviewed 05/25/2012 12:00 AM Kenalog, Per 10 Mg [facility]#7026-1201-45 Reviewed 06/14/2012 12:00 AM DRAIN/INJ JOINT/BURSA W/O US Reviewed 06/14/2012 12:00 AM Kenalog, Per 10 Mg [facility]#2199-1839-48 Reviewed 05/09/2017 12:00 AM MAMMOGRAPHY SCREENING, DIGITAL Reviewed 07/11/2012 12:00 AM THER/PROPH/DIAG INJ SC/IM Reviewed 07/11/2012 12:00 AM Decadron 1 mg [facility]#[id number] (Manuel) Reviewed 07/11/2012 12:00 AM Depo-Medrol 80 mg [facility]#[id number]-Pdzamwyj Reviewed 08/21/2012 12:00 AM ASSAY CARBOXYHB QUANT Reviewed 09/01/2017 12:00 AM RADIOLOGIC EXAMINATION KNEE 1/2 VIEWS Reviewed 09/18/2012 12:00 AM DRAIN/INJ JOINT/BURSA W/O US Reviewed 09/18/2012 12:00 AM Kenalog, Per 10 Mg [facility]#7893-1502-24 Reviewed 10/25/2017 12:00 AM RADIOLOGIC EXAMINATION KNEE 3 VIEWS Reviewed 10/13/2012 12:00 AM COMPREHEN METABOLIC PANEL Reviewed 10/13/2012 12:00 AM LIPID PANEL Reviewed 10/13/2012 12:00 AM GLYCOSYLATED HEMOGLOBIN TEST Reviewed 10/13/2012 12:00 AM MICROALBUMIN SEMIQUANT Reviewed 04/15/2010 12:00 AM MAMMOGRAM SCREENING Reviewed 12/06/2012 12:00 AM DRAIN/INJ JOINT/BURSA W/O US Reviewed 12/06/2012 12:00 AM Kenalog, Per 10 Mg [facility]#7897-4089-19 Reviewed 12/22/2012 12:00 AM TOTAL CORTISOL Reviewed 04/26/2013 12:00 AM DRAIN/INJ JOINT/BURSA W/O US Reviewed 04/26/2013 12:00 AM Kenalog, Per 10 Mg N[facility]#8991-0988-96 Reviewed 05/10/2013 12:00 AM DRAIN/INJ JOINT/BURSA W/O US Reviewed 05/10/2013 12:00 AM Kenalog, Per 10 Mg [facility]#9818-1851-92 Reviewed 05/10/2013 12:00 AM DRAIN/INJ JOINT/BURSA W/O US Reviewed 05/10/2013 12:00 AM Kenalog, Per 10 Mg [facility]#3782-4720-43 Reviewed 05/28/2013 12:00 AM MAMMOGRAM SCREENING Reviewed [...] 12:00 AM Kenalog, Per 10 Mg [facility]#4985-9730-69 Reviewed 04/05/2014 12:00 AM COMPLETE CBC W/AUTO [...] in joint; Knee Feb 2011 4:20PM Fibromyalgia b 2011 4:20PM Lumbago Feb 6 2011 4:20PM Cervicalgia Feb 6 2011 4:20PM Trochanteric Bursitis Feb 13 2011 9:26AM Insomnia Dec 16 2011 3:26PM Dermatitis Feb 16 2011 3:26PM Otitis Externa, Acute - Right b 2011 3:26PM Pain in joint; Knee Dec [...] Knee Dec 12 2014 3:20PM Lumbago Feb 12 2014 3:20PM [...] Right hip pain Nov 09 2017 5:12PM Payers Insurance Name Company Name Plan Name Plan Number Policy Number Policy Group Number Start Date [facility] Gpa [id number] Saturday, 2015 [employer] [place] [id number] Saturday, 2009 [employer] [place] [id number] Wednesday, 2009 History of Encounters Visit Date Visit Type Provider 11/09/2017 Office visit Harjinder Paiz PA-C 10/28/2017 Office visit Lakia Reina GREENHOUSE STAFF 10/25/2017 Office visit Regina Mcnally GREENHOUSE STAFF 10/05/2017 Office visit Regina Mcnally GREENHOUSE STAFF 09/01/2017 Office visit Brannon Jackson DO 06/29/2017 Office visit Karyna Gilbert GREENHOUSE STAFF 06/18/2017 Office visit Karyna Gilbert GREENHOUSE STAFF 05/09/2017 Office visit Brannon Jackson DO 03/08/2017 Office visit Brannon Jackson DO 01/25/2017 Office visit Brannon Jackson DO 01/19/2017 Office visit Regina Mcnally GREENHOUSE STAFF 01/04/2017 Procedures Reagan Lehman DO 12/24/2016 Office visit Brannon Jackson DO 12/23/2016 Surgery Reagan Lehman DO 12/14/2016 Office visit Reagan Lehman DO 11/25/2016 Office visit Brannon Jackson DO 11/19/2016 Office visit Sandra Milton GREENHOUSE STAFF 11/02/2016 Office visit Lakia Reina GREENHOUSE STAFF 09/09/2016 Office visit Brannon Jackson DO 05/18/2016 Office visit Brannon Jackson DO 05/05/2016 Office visit 05/05/2016 Office visit Brannon Jackson 02/05/2016 Office visit Brannon Jackson DO 12/09/2015 Voided Cass BRAY 10/13/2015 Office visit Brannon Tidwellburt BALTAZAR 09/18/2015 Nurse visit Cass ARCINIEGAP 09/03/2015 Procedures Reagan Fallon DO 08/29/2015 Office visit Brannon Simpsonte DO [...] Dinesh Zhu MD 12/17/2014 Office visit Brannon Tidwellburt BALTAZAR 12/12/2014 Office visit Cass BRAY 10/29/2014 [...] Manuel DO 08/27/2013 Office visit Regina Mcnally GREENHOUSE STAFF 08/17/2013 Office visit Ray Tripathi APRN 05/21/2013 Office visit Brannon Jackson DO 05/10/2013 Office visit Anirudh Conway MD 04/26/2013 Office visit Anirudh Conway MD 12/22/2012 Office visit Brannon Manuel DO 12/14/2012 [facility] Sandra Ca MD 12/12/2012 Office visit Brannon Simpsonte DO 12/12/2012 [facility] Sandra Ca MD 12/06/2012 Office visit Anirudh Conway MD 11/24/2012 Office visit Regina Mcnally GREENHOUSE STAFF 10/12/2012 [facility] Anirudh Conway MD 10/10/2012 Office visit Brannon Jackson DO 09/18/2012 Office visit Anirudh Conway MD 09/01/2012 Office visit Brannon Jackson DO 08/21/2012 Office visit Brannon Jackson DO 08/01/2012 Office visit Brannon Jackson DO 07/11/2012 Office visit Regina Mcnally GREENHOUSE STAFF 06/14/2012 Office visit Anirudh Conway MD 05/25/2012 Office visit Anirudh Conway MD 05/04/2012 Office visit Brannon Jackson DO 12/23/2011 Office visit Anirudh Conway MD 12/16/2011 Office visit Brannon Jackson DO 12/06/2011 Office visit Anirudh Conway MD 11/11/2011 Office visit Brannon Jackson DO 10/28/2011 Office visit Brannon Manuel DO 10/22/2011 [facility] Valery Cerna MD 10/21/2011 [facility] Valery Cerna MD 10/19/2011 Office visit Brannon Manuel DO 10/19/2011 [facility] Anderson Dawkins MD 10/07/2011 Office visit [...]
[2018-10-25] MEDS ORDERED: BUPIVACAINE 0.25% 30 ML (SENSORCAINE) VIAL ONE (08:51)
--- OUTSIDE RECORDS SUMMARY | 2018-10-25 08:51 | XMS REPORT ---
Author Author Brannon Jackson [facility] Address [address] [place], [place] [address] Care Team Providers Care Spinning And Winding Supervisor Name Role Phone Brannon Jackson PCP Brannon [...] once daily hydrocodone-acetaminophen 10-325 mg oral tablet 04/03/2018 05/03/2018 take 1 tablet by oral route every [...] 2 times per day for 7 days [place] Thyroid 120 mg oral tablet 12/14/2012 12/09/2013 [...] Reviewed 12/13/2011 12:00 AM Kenalog per 10Mg Im-[facility]#[address]-54(Man) Reviewed 12/23/2011 12:00 AM DRAIN/INJ JOINT/BURSA W/O US Reviewed 12/23/2011 12:00 AM Kenalog 40 Mg Im-Ndc#5908-9445-88 Reviewed 11/19/2016 12:00 AM X-RAY EXAM OF HAND Reviewed 01/19/2017 12:00 AM COMPLETE CBC W/AUTO DIFF WBC Reviewed 01/19/2017 12:00 AM COMPREHEN METABOLIC PANEL Reviewed 01/19/2017 12:00 AM GLYCOSYLATED HEMOGLOBIN TEST Reviewed 05/25/2012 12:00 AM INJ TRIGGER POINT 1/2 MUSCL Reviewed 05/25/2012 12:00 AM Kenalog, Per 10 Mg ND#3168-4655-48 Reviewed 06/14/2012 12:00 AM DRAIN/INJ JOINT/BURSA W/O US Reviewed 06/14/2012 12:00 AM Kenalog, Per 10 Mg NDC#1505-5810-97 Reviewed 05/09/2017 12:00 AM MAMMOGRAPHY SCREENING, DIGITAL Reviewed 07/11/2012 12:00 AM THER/PROPH/DIAG INJ SC/IM Reviewed 07/11/2012 12:00 AM Decadron 1 mg NDC#[id number] (Manuel) Reviewed 07/11/2012 12:00 AM Depo-Medrol 80 mg [facility]#[id number]-Ttagpecm Reviewed 08/21/2012 12:00 AM ASSAY CARBOXYHB QUANT Reviewed 09/01/2017 12:00 AM RADIOLOGIC EXAMINATION KNEE 1/2 VIEWS Reviewed 09/18/2012 12:00 AM DRAIN/INJ JOINT/BURSA W/O US Reviewed 09/18/2012 12:00 AM Kenalog, Per 10 Mg [facility]#5547-8112-84 Reviewed 10/25/2017 12:00 AM RADIOLOGIC EXAMINATION KNEE [...] Per 10 Mg [facility]#0568-3414-58 Reviewed 12/22/2012 12:00 AM TOTAL CORTISOL Reviewed 04/26/2013 12:00 AM DRAIN/INJ JOINT/BURSA W/O US Reviewed 04/26/2013 12:00 AM Kenalog, Per 10 Mg [facility]#4435-8284-96 Reviewed 05/10/2013 12:00 AM DRAIN/INJ JOINT/BURSA W/O US Reviewed 05/10/2013 12:00 AM Kenalog, Per 10 Mg [facility]#7345-5227-24 Reviewed 05/10/2013 12:00 AM DRAIN/INJ JOINT/BURSA W/O US Reviewed 05/10/2013 12:00 AM Kenalog, Per 10 Mg [facility]#7252-6592-02 Reviewed 05/28/2013 12:00 AM MAMMOGRAM SCREENING Reviewed [...] Per 10 Mg [facility]#4601-9392-97 Reviewed 04/05/2014 12:00 AM COMPLETE CBC W/AUTO [...] 4:20PM Hyperlipidemia, Mixed Jan 03 2018 4:20PM Payers Insurance Name Company Name Plan Name Plan Number Policy Number Policy Group Number Start Date [employer] [id number] Saturday, 2015 BCBS [employer]cbs [facility] [id number] Saturday, 2009 BCBS [employer] [facility] [id number] Wednesday, 2009 History of Encounters Visit Date Visit Type Provider 03/28/2018 Office visit Brannon Jackson DO 12/02/2017 Office visit Brannon Jackson DO 11/11/2017 Office visit Brannon Jackson DO 11/09/2017 Office visit Harjinder Paiz PA-C 10/28/2017 Office visit Lakia Reina ELECTRONIC PAGINATION SYSTEM OPERATOR 10/25/2017 Office visit Regina Mcnally ELECTRONIC PAGINATION SYSTEM OPERATOR 10/05/2017 Office visit Regina Mcnally ELECTRONIC PAGINATION SYSTEM OPERATOR 09/01/2017 Office visit Brannon Jackson DO 06/29/2017 Office visit Karyna Gilbert ELECTRONIC PAGINATION SYSTEM OPERATOR 06/18/2017 Office visit Karyna Gilbert ELECTRONIC PAGINATION SYSTEM OPERATOR 05/09/2017 Office visit Brannon Simpsonte DO 03/08/2017 Office visit Brannon Manuel DO 01/25/2017 Office visit Brannon Manuel DO 01/19/2017 Office visit Regina Mcnally ELECTRONIC PAGINATION SYSTEM OPERATOR 01/04/2017 Procedures Reagan Bouman DO 12/24/2016 Office visit Brannon Manuel DO 12/23/2016 Surgery Reagan Bouman DO 12/14/2016 Office visit Reagan Bouman DO 11/25/2016 Office visit Brannon Simpsonte DO 11/19/2016 Office visit Sandra Keanedez ELECTRONIC PAGINATION SYSTEM OPERATOR 11/02/2016 Office visit Lakia Reina ELECTRONIC PAGINATION SYSTEM OPERATOR 09/09/2016 Office visit Brannon Simpsonte DO 05/18/2016 Office visit Brannon Tidwellhite DO 05/05/2016 Office visit 05/05/2016 Office visit Brannon Tidwellhite DO 02/05/2016 Office visit Brannon Simpsonte DO 12/09/2015 Voided Cass BRAY 10/13/2015 Office [...] visit Cass BRAY 10/02/2014 Office visit Cass Arellano [employer] 09/20/2014 Office visit Brannon Manuel DO 09/05/2014 Office visit Cass Arellano [employer] 07/29/2014 Office visit Cass Arellano [employer] 07/18/2014 Office visit Brannon Manuel DO 07/03/2014 Office visit Rob Joseph ELECTRONIC PAGINATION SYSTEM OPERATOR 06/11/2014 Office visit Cass Arellano [employer] 04/29/2014 Office visit Cass Arellano [employer] 04/29/2014 Office visit Brannon Jackson DO 04/05/2014 Office visit Harjinder Paiz PA-C 02/25/2014 Office visit Cass Arellano [employer] 01/02/2014 Office visit Cass ARCINIEGAP 12/18/2013 Office visit Cass ARCINIEGAP 09/13/2013 Office visit Brannon Jackson DO 08/27/2013 Office visit Regina Mcnally ELECTRONIC PAGINATION SYSTEM OPERATOR 08/17/2013 Office visit Ray Tripathi APRN [...] 11/24/2012 Office visit Regina Mcnally APRN 10/12/2012 [facility] Anirudh Conway MD 10/10/2012 Office visit Brannon Jackson DO 09/18/2012 Office visit Anirudh Conway MD 09/01/2012 Office visit Brannon Jackson DO 08/21/2012 Office visit Brannon Jackson DO 08/01/2012 Office visit Brannon Jackson DO 07/11/2012 Office visit Regina Mcnally ELECTRONIC PAGINATION SYSTEM OPERATOR 06/14/2012 Office visit Anirudh Conway MD 05/25/2012 Office visit Anirudh Conway MD 05/04/2012 Office visit Brannon Jackson DO 12/23/2011 Office visit Anirudh Conway MD 12/16/2011 Office visit Brannon Jackson DO 12/06/2011 Office visit Anirudh Conway MD 11/11/2011 Office visit Brannon Jackson DO 10/28/2011 Office visit Brannon Jackson DO 10/22/2011 Hospital Valery Cerna MD 10/21/2011 [facility] [...] Brannon Jackson DO 06/27/2009 Office visit Brannon Jcakson DO
--- OUTSIDE RECORDS SUMMARY | 2018-10-25 08:53 | XMS REPORT ---
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 in History of [...] Reviewed 12/13/2011 12:00 AM Kenalog per 10Mg [facility]#[address]-33(Man) Reviewed 12/23/2011 12:00 AM DRAIN/INJ JOINT/BURSA W/O US Reviewed 12/23/2011 12:00 AM Kenalog 40 Mg [facility]#5386-6118-91 Reviewed 11/19/2016 12:00 AM X-RAY EXAM OF HAND Reviewed 01/19/2017 12:00 AM COMPLETE CBC W/AUTO DIFF WBC Reviewed 01/19/2017 12:00 AM COMPREHEN METABOLIC PANEL Reviewed 01/19/2017 12:00 AM GLYCOSYLATED HEMOGLOBIN TEST Reviewed 05/25/2012 12:00 AM INJ TRIGGER POINT 1/2 MUSCL Reviewed 05/25/2012 12:00 AM Kenalog, Per 10 Mg [facility]#5261-3339-80 Reviewed 06/14/2012 12:00 AM DRAIN/INJ JOINT/BURSA W/O US Reviewed 06/14/2012 12:00 AM Kenalog, Per 10 Mg [facility]#0808-3156-62 Reviewed 05/09/2017 12:00 AM MAMMOGRAPHY SCREENING, DIGITAL Reviewed 07/11/2012 12:00 AM THER/PROPH/DIAG INJ SC/IM Reviewed 07/11/2012 12:00 AM Decadron 1 mg [facility]#[id number] (Manuel) Reviewed 07/11/2012 12:00 AM Depo-Medrol 80 mg [facility]#[id number]-Kfzyuxtx Reviewed 08/21/2012 12:00 AM ASSAY CARBOXYHB QUANT Reviewed 09/01/2017 12:00 AM RADIOLOGIC EXAMINATION KNEE 1/2 VIEWS Reviewed 09/18/2012 12:00 AM DRAIN/INJ JOINT/BURSA W/O US Reviewed 09/18/2012 12:00 AM Kenalog, Per 10 Mg [facility]#1466-0803-64 Reviewed 10/25/2017 12:00 AM RADIOLOGIC EXAMINATION KNEE 3 VIEWS Reviewed 10/13/2012 12:00 AM COMPREHEN METABOLIC PANEL Reviewed 10/13/2012 12:00 AM LIPID PANEL Reviewed 10/13/2012 12:00 AM GLYCOSYLATED HEMOGLOBIN TEST Reviewed 10/13/2012 12:00 AM MICROALBUMIN SEMIQUANT Reviewed 04/15/2010 12:00 AM MAMMOGRAM SCREENING Reviewed 12/06/2012 12:00 AM DRAIN/INJ JOINT/BURSA W/O US Reviewed 12/06/2012 12:00 AM Kenalog, Per 10 Mg [facility]#9957-8056-28 Reviewed 12/22/2012 12:00 AM TOTAL CORTISOL Reviewed 04/26/2013 12:00 AM DRAIN/INJ JOINT/BURSA W/O US Reviewed 04/26/2013 12:00 AM Kenalog, Per 10 Mg [facility]#4925-4000-03 Reviewed 05/10/2013 12:00 AM DRAIN/INJ JOINT/BURSA W/O US Reviewed 05/10/2013 12:00 AM Kenalog, Per 10 Mg [facility]#5164-5725-31 Reviewed 05/10/2013 12:00 AM DRAIN/INJ JOINT/BURSA W/O US Reviewed 05/10/2013 12:00 AM Kenalog, Per 10 Mg [facility]#9870-5353-45 Reviewed 05/28/2013 12:00 AM MAMMOGRAM SCREENING Reviewed [...] 03/05/2014 12:00 AM Kenalog, Per 10 Mg [facility]#5125-9821-29 Reviewed 04/05/2014 12:00 AM COMPLETE CBC W/AUTO [...] Number Policy Group Number Start Date [facility] Gpa [id number] Saturday, 2015 [employer] [place] [id number] Saturday, 2009 [employer] [place] [id number] Wednesday, 2009 History of Encounters Visit Date Visit Type Provider 11/09/2017 Office visit Harjinder Paiz PA-C 10/28/2017 Office visit Lakia Reina FLUME RIDE OPERATOR 10/25/2017 Office visit Regina Mcnally FLUME RIDE OPERATOR 10/05/2017 Office visit Regina Mcnally FLUME RIDE OPERATOR 09/01/2017 Office visit Brannon Jackson DO 06/29/2017 Office visit Karyna Gilbert FLUME RIDE OPERATOR 06/18/2017 Office visit Karyna Gilbert FLUME RIDE OPERATOR 05/09/2017 Office visit Brannon Jackson DO 03/08/2017 Office visit Brannon Jackson DO 01/25/2017 Office visit Brannon Jackson DO 01/19/2017 Office visit Regina Mcnally FLUME RIDE OPERATOR 01/04/2017 Procedures Reagan Lehman DO 12/24/2016 Office visit Brannon Jackson DO 12/23/2016 Surgery Reagan Lehman DO 12/14/2016 Office visit Reagan Lehman DO 11/25/2016 Office visit Brannon Jackson DO 11/19/2016 Office visit Sandra Milton FLUME RIDE OPERATOR 11/02/2016 Office visit Lakia Reina FLUME RIDE OPERATOR 09/09/2016 Office visit Brannon Jackson DO [...] Manuel DO 08/27/2013 Office visit Regina Mcnally FLUME RIDE OPERATOR 08/17/2013 Office visit Ray Tripathi APRN 05/21/2013 Office visit Brannon Jackson DO 05/10/2013 Office visit Anirudh Conway MD 04/26/2013 Office visit Anirudh Conway MD 12/22/2012 Office visit Brannon Manuel DO 12/14/2012 [facility] Sandra Ca MD 12/12/2012 Office visit Brannon Simpsonte DO 12/12/2012 [facility] Sandra Ca MD 12/06/2012 Office visit Anirudh Conway MD 11/24/2012 Office visit Regina Mcnally FLUME RIDE OPERATOR 10/12/2012 [facility] Anirudh Conway MD 10/10/2012 Office visit Brannon Jackson DO 09/18/2012 Office visit Anirudh Conway MD 09/01/2012 Office visit Brannon Jackson DO 08/21/2012 Office visit Brannon Jackson DO 08/01/2012 Office visit Brannon Jackson DO 07/11/2012 Office visit Regina Mcnally FLUME RIDE OPERATOR 06/14/2012 Office visit Anirudh Conway MD 05/25/2012 Office visit Anirudh Conway MD 05/04/2012 Office visit Brannon Jackson DO 12/23/2011 Office visit Anirudh Conway MD 12/16/2011 Office visit Brannon Jackson DO 12/06/2011 Office visit Anirudh Conway MD 11/11/2011 Office visit Brannon Jackson DO 10/28/2011 Office visit Brannon Manuel DO 10/22/2011 [facility] Valery Cerna MD 10/21/2011 [facility] Valery Cerna MD 10/19/2011 Office visit Brannon Manuel DO 10/19/2011 [facility] Anderson Dawkins MD 10/07/2011 Office visit [...]
--- OUTSIDE RECORDS SUMMARY | 2018-10-25 08:55 | XMS REPORT ---
Author Author Brannon Jackson [facility] Address [address] [place], [place] [id number] Care Team Providers Care Fisheries Management Biologist Name Role Phone Brannon Jackson PCP Unavailable [...] oral route once daily for 90 days Tivorbex 40 mg oral capsule 12/02/2016 take 1 capsule (40 mg) by oral route 2 times per day with food estradiol 0.5 mg oral tablet take 1 tablet (0.5 mg) by oral route once daily OneTouch Verio miscellaneous strip 12/30/2016 Test glucose 2 times a day Dx: e11.9 Miconazole 7 100 mg vaginal suppository 12/31/2016 01/07/2017 insert 1 suppository (100 mg) by vaginal route once daily at bedtime for 7 days hydrocodone-acetaminophen 10-325 mg oral tablet 01/04/2017 02/03/2017 take 1 tablet by oral route every [...] 2 times per day for 7 days [place] Thyroid 120 mg oral tablet 12/14/2012 12/09/2013 [...] 12:00 AM Kenalog per 10Mg [facility]#[address]-32(Man) Reviewed 12/23/2011 12:00 AM DRAIN/INJ JOINT/BURSA W/O US Reviewed 12/23/2011 12:00 AM Kenalog 40 Mg [facility]#8506-2948-63 Reviewed 11/19/2016 12:00 AM X-RAY EXAM OF HAND Reviewed 05/25/2012 12:00 AM INJ TRIGGER POINT 1/2 MUSCL Reviewed 05/25/2012 12:00 AM Kenalog, Per 10 Mg [facility]#9781-5353-58 Reviewed 06/14/2012 12:00 AM DRAIN/INJ JOINT/BURSA W/O US Reviewed 06/14/2012 12:00 AM Kenalog, Per 10 Mg [facility]#0491-6357-44 Reviewed 07/11/2012 12:00 AM THER/PROPH/DIAG INJ SC/IM Reviewed 07/11/2012 12:00 AM Decadron 1 mg [facility]#[id number] (Manuel) Reviewed 07/11/2012 12:00 AM Depo-Medrol 80 mg [facility]#[id number]-Tkrnytai Reviewed 08/21/2012 12:00 AM ASSAY CARBOXYHB QUANT Reviewed 09/18/2012 12:00 AM DRAIN/INJ JOINT/BURSA W/O US Reviewed 09/18/2012 12:00 AM Kenalog, Per 10 Mg [facility]#4521-3136-70 Reviewed 10/13/2012 12:00 AM COMPREHEN METABOLIC PANEL Reviewed 10/13/2012 12:00 AM LIPID PANEL Reviewed 10/13/2012 12:00 AM GLYCOSYLATED HEMOGLOBIN TEST Reviewed 10/13/2012 12:00 AM MICROALBUMIN SEMIQUANT Reviewed 04/15/2010 12:00 AM MAMMOGRAM SCREENING Reviewed 12/06/2012 12:00 AM DRAIN/INJ JOINT/BURSA W/O US Reviewed 12/06/2012 12:00 AM Kenalog, Per 10 Mg [facility]#2965-1278-09 Reviewed 12/22/2012 12:00 AM TOTAL CORTISOL Reviewed 04/26/2013 12:00 AM DRAIN/INJ JOINT/BURSA W/O US Reviewed 04/26/2013 12:00 AM Kenalog, Per 10 Mg [facility]#6556-1570-32 Reviewed 05/10/2013 12:00 AM DRAIN/INJ JOINT/BURSA W/O US Reviewed 05/10/2013 12:00 AM Kenalog, Per 10 Mg [facility]#5119-9790-98 Reviewed 05/10/2013 12:00 AM DRAIN/INJ JOINT/BURSA W/O US Reviewed 05/10/2013 12:00 AM Kenalog, Per 10 Mg [facility]#3889-8864-24 Reviewed 05/28/2013 12:00 AM MAMMOGRAM SCREENING Reviewed [...] 12:00 AM Kenalog, Per 10 Mg [facility]#0827-4219-85 Reviewed 04/05/2014 12:00 AM COMPLETE CBC W/AUTO [...] 2011 11:24AM Lumbago b 2011 11:24AM Cervicalgia Feb 2011 11:24AM Osteoarthritis [...] 2016 9:36AM Hypertension Dec 24 2016 9:36AM Payers Insurance Name Company Name Plan Name Plan Number Policy Number Policy Group Number Start Date Gpa Gpa [id number] Saturday, 2015 [employer] [place] [id number] Saturday, 2009 [employer] [place] [id number] Wednesday, 2009 History of Encounters Visit Date Visit Type Provider 12/24/2016 Office visit Brannon Jackson DO 12/23/2016 [...] Manuel DO 07/03/2014 Office visit Rob Ruiz DICTAPHONE OPERATOR 06/11/2014 Office visit Cass BRAY 04/29/2014 Office visit Cass BRAY 04/29/2014 Office visit Brannon Manuel DO 04/05/2014 Office visit Harjinder Paiz PA-C 02/25/2014 Office visit Cass BRAY 01/02/2014 Office visit Cass BRAY 12/18/2013 Office visit Cass BRAY 09/13/2013 Office visit Brannon Jackson DO 08/27/2013 Office visit Regina Mcnally DICTAPHONE OPERATOR 08/17/2013 Office visit Ray Tripathi APRN [...] Conway MD 11/24/2012 Office visit Regina Mcnally DICTAPHONE OPERATOR 10/12/2012 [facility] Anirudh Conway MD 10/10/2012 Office visit Brannon Jackson DO 09/18/2012 Office visit Anirudh Conway MD 09/01/2012 Office visit Brannon Jackson DO 08/21/2012 Office visit Brannon Jackson DO 08/01/2012 Office visit Brannon Jackson DO 07/11/2012 Office visit Regina Mcnally DICTAPHONE OPERATOR 06/14/2012 Office visit Anirudh Conway MD [...] Jackson DO 08/18/2010 Office visit Regina Mcnally DICTAPHONE OPERATOR 02/03/2010 Office visit Brannon Jackson DO 12/02/2009 Office visit Brannon Jackson DO 06/27/2009 Office visit Brannon Simpsonte DO
--- OUTSIDE RECORDS SUMMARY | 2018-10-25 08:58 | XMS REPORT ---
Author Author Regina Mcnally Organization [facility] Address [address] [place], [place] [address] Care Team Providers Care Science Editor Name Role Phone Regina Mcnally PCP Brannon Jackson PreferredProvider Allergies and Adverse [...] TAKE 1 TABLET ONCE A DAY ATBEDTIME hydrocodone-acetaminophen 10-325 mg oral tablet 09/29/2017 10/29/2017 take 1 tablet by oral route every 6 hours for 30 days Zyrtec-D 5-120 mg oral tablet extended release 12 hr 10/05/2017 take 1 tablet by oral route 2 times per day Flonase Allergy Relief 50 mcg/actuation nasal spray,suspension 10/05/2017 spray 1 spray (50 mcg) in each nostril by intranasal route once daily Name Start Date Expiration [...] 2 times per day for 7 days [place] Thyroid 120 mg oral tablet 12/14/2012 12/09/2013 [...] HC BMI BSA BMI Percentile O2 Sat(%) 10/05/2017 8:30:00 AM 129 mmHg 79 mmHg [...] Reviewed 12/13/2011 12:00 AM Kenalog per 10Mg [facility]#[address]-86(Man) Reviewed 12/23/2011 12:00 AM DRAIN/INJ JOINT/BURSA W/O US Reviewed 12/23/2011 12:00 AM Kenalog 40 Mg [facility]#3918-4937-05 Reviewed 11/19/2016 12:00 AM X-RAY EXAM OF HAND Reviewed 01/19/2017 12:00 AM COMPLETE CBC W/AUTO DIFF WBC Reviewed 01/19/2017 12:00 AM COMPREHEN METABOLIC PANEL Reviewed 01/19/2017 12:00 AM GLYCOSYLATED HEMOGLOBIN TEST Reviewed 05/25/2012 12:00 AM INJ TRIGGER POINT 1/2 MUSCL Reviewed 05/25/2012 12:00 AM Kenalog, Per 10 Mg [facility]#5114-0141-82 Reviewed 06/14/2012 12:00 AM DRAIN/INJ JOINT/BURSA W/O US Reviewed 06/14/2012 12:00 AM Kenalog, Per 10 Mg [facility]#4833-3484-89 Reviewed 05/09/2017 12:00 AM MAMMOGRAPHY SCREENING, DIGITAL Reviewed 07/11/2012 12:00 AM THER/PROPH/DIAG INJ SC/IM Reviewed 07/11/2012 12:00 AM Decadron 1 mg [facility]#[id number] (Manuel) Reviewed 07/11/2012 12:00 AM Depo-Medrol 80 mg [facility]#[id number]-Fdlixtyc Reviewed 08/21/2012 12:00 AM ASSAY CARBOXYHB QUANT Reviewed 09/01/2017 12:00 AM RADIOLOGIC EXAMINATION KNEE 1/2 VIEWS Reviewed 09/18/2012 12:00 AM DRAIN/INJ JOINT/BURSA W/O US Reviewed 09/18/2012 12:00 AM Kenalog, Per 10 Mg [facility]#7399-2784-35 Reviewed 10/13/2012 12:00 AM COMPREHEN METABOLIC PANEL Reviewed 10/13/2012 12:00 AM LIPID PANEL Reviewed 10/13/2012 12:00 AM GLYCOSYLATED HEMOGLOBIN TEST Reviewed 10/13/2012 12:00 AM MICROALBUMIN SEMIQUANT Reviewed 04/15/2010 12:00 AM MAMMOGRAM SCREENING Reviewed 12/06/2012 12:00 AM DRAIN/INJ JOINT/BURSA W/O US Reviewed 12/06/2012 12:00 AM Kenalog, Per 10 Mg [facility]#8570-1791-93 Reviewed 12/22/2012 12:00 AM TOTAL CORTISOL Reviewed 04/26/2013 12:00 AM DRAIN/INJ JOINT/BURSA W/O US Reviewed 04/26/2013 12:00 AM Kenalog, Per 10 Mg [facility]#0651-6212-18 Reviewed 05/10/2013 12:00 AM DRAIN/INJ JOINT/BURSA W/O US Reviewed 05/10/2013 12:00 AM Kenalog, Per 10 Mg [facility]#9867-4330-85 Reviewed 05/10/2013 12:00 AM DRAIN/INJ JOINT/BURSA W/O US Reviewed 05/10/2013 12:00 AM Kenalog, Per 10 Mg [facility]#4264-7347-60 Reviewed 05/28/2013 12:00 AM MAMMOGRAM SCREENING Reviewed [...] 03/05/2014 12:00 AM Kenalog, Per 10 Mg [facility]#0573-8204-34 Reviewed 04/05/2014 12:00 AM COMPLETE CBC W/AUTO [...] 2011 3:43PM Pain in joint; Bilateral Hip Fe2011 4:20PM Bursitis Feb 2011 4:20PM Pain in joint; Knee b 2011 4:20PM Fibromyalgia Feb 2011 4:20PM Lumbago b 2011 4:20PM Cervicalgia Feb 2011 4:20PM Trochanteric [...] upper respiratory infection Oct 05 2017 8:32AM Payers Insurance Name Company Name Plan Name Plan Number Policy Number Policy Group Number Start Date [facility] [id number] Saturday, 2015 [employer] [facility] [id number] Saturday, 2009 [employer] [facility] [id number] Wednesday, 2009 History of Encounters Visit Date Visit Type Provider 10/05/2017 Office visit Regina Mcnally TALEND DEVELOPER 09/01/2017 Office visit Brannon Jackson DO 06/29/2017 Office visit Karyna Gilbert TALEND DEVELOPER 06/18/2017 Office visit Karyna Gilbert TALEND DEVELOPER 05/09/2017 Office visit Brannon Jackson DO 03/08/2017 Office visit Brannon Jackson DO 01/25/2017 Office visit Brannon Jackson DO 01/19/2017 Office visit Regina Mcnally TALEND DEVELOPER 01/04/2017 Procedures Reagan Lehman DO 12/24/2016 Office visit Brannon Jackson DO 12/23/2016 Surgery Reagan Lehman DO 12/14/2016 Office visit Reagan Lehman DO 11/25/2016 Office visit Brannon Jackson DO 11/19/2016 Office visit Sandra Milton TALEND DEVELOPER 11/02/2016 Office visit Lakia Reina TALEND DEVELOPER 09/09/2016 Office visit Brannon Jackson DO 05/18/2016 Office visit Brannon Jackson DO 05/05/2016 Office visit 05/05/2016 Office visit Brannon Jackson DO 02/05/2016 Office visit Brannon Jackson DO 12/09/2015 Voided Cass BRAY 10/13/2015 Office visit Brannon Simpsonte DO 09/18/2015 Nurse visit Cass BRAY 09/03/2015 Procedures Reagan Lehman DO 08/29/2015 Office visit Brannon Tidwellhite DO 08/20/2015 Office visit Cass BRAY 08/01/2015 [...] visit Cass BRAY 07/29/2014 Office visit Cass M. Adan PAPER PROCESSING MACHINE HELPER 07/18/2014 Office visit Brannon Manuel DO 07/03/2014 Office visit Rob Joseph TALEND DEVELOPER 06/11/2014 Office visit Cass Arellano PAPER PROCESSING MACHINE HELPER 04/29/2014 Office visit Cass Arellano PAPER PROCESSING MACHINE HELPER 04/29/2014 Office visit Brannon Manuel DO 04/05/2014 Office visit Harjinder Paiz PA-C 02/25/2014 Office visit Cass BeltranMonse Adan PAPER PROCESSING MACHINE HELPER 01/02/2014 Office visit Cassrosamaria Arellano PAPER PROCESSING MACHINE HELPER 12/18/2013 Office visit Cassrosamaria Arellano PAPER PROCESSING MACHINE HELPER 09/13/2013 Office visit Brannon Jackson DO 08/27/2013 Office visit Reigna Mcnally TALEND DEVELOPER 08/17/2013 Office visit Ray Tripathi TALEND DEVELOPER 05/21/2013 Office visit Brannon Jackson DO 05/10/2013 Office visit Anirudh Conway MD 04/26/2013 Office visit Anirudh Conway MD 12/22/2012 Office visit Brannon Jackson DO 12/14/2012 [facility] Sandra Ca MD 12/12/2012 Office visit Brannon Jackson DO 12/12/2012 [facility] Sandra Ca MD 12/06/2012 Office visit Anirudh Conway MD 11/24/2012 Office visit Regina Mcnally TALEND DEVELOPER 10/12/2012 [facility] Anirudh Conway MD 10/10/2012 Office visit Brannon Jackson DO 09/18/2012 Office visit Anirudh oCnway MD 09/01/2012 Office visit Brannon Jackson DO 08/21/2012 Office visit Brannon Jackson DO 08/01/2012 Office visit Brannon Jackson DO 07/11/2012 Office visit Regina Mcnally TALEND DEVELOPER 06/14/2012 Office visit Anirudh Conway MD 05/25/2012 [...]
--- OUTSIDE RECORDS SUMMARY | 2018-10-25 09:00 | XMS REPORT ---
Author Author Brannon Jackson [facility] Address [address] [place], [place] [address] Care Team Providers Care Recording Clerk Name Role Phone Brannon Jackson PCP Unavailable [...] route 2 times per for 30 days hydrocodone-acetaminophen 10-325 mg oral tablet 03/15/2017 04/14/2017 take 1 tablet by oral route every 6 hours for 30 days May fill 03/17/17 tolterodine 4 mg oral capsule,extended release 24hr [...] 2 times per day for 7 days [place] Thyroid 120 mg oral tablet 12/14/2012 12/09/2013 [...] Reviewed 12/13/2011 12:00 AM Kenalog per 10Mg [facility]#[address]-98(Man) Reviewed 12/23/2011 12:00 AM DRAIN/INJ JOINT/BURSA W/O US Reviewed 12/23/2011 12:00 AM Kenalog 40 Mg [facility]#4660-6433-61 Reviewed 11/19/2016 12:00 AM X-RAY EXAM OF HAND Reviewed 01/19/2017 12:00 AM COMPLETE CBC W/AUTO DIFF WBC Reviewed 01/19/2017 12:00 AM COMPREHEN METABOLIC PANEL Reviewed 01/19/2017 12:00 AM GLYCOSYLATED HEMOGLOBIN TEST Reviewed 05/25/2012 12:00 AM INJ TRIGGER POINT 1/2 MUSCL Reviewed 05/25/2012 12:00 AM Kenalog, Per 10 Mg [facility]#2343-7057-40 Reviewed 06/14/2012 12:00 AM DRAIN/INJ JOINT/BURSA W/O US Reviewed 06/14/2012 12:00 AM Kenalog, Per 10 Mg [facility] [place] [place]#5822-2260-00 Reviewed 07/11/2012 12:00 AM THER/PROPH/DIAG INJ SC/IM Reviewed 07/11/2012 12:00 AM Decadron 1 mg [facility] [place]#[id number] (Manuel) Reviewed 07/11/2012 12:00 AM Depo-Medrol 80 mg [facility] [place]#[id number]-Lqyyminm Reviewed 08/21/2012 12:00 AM ASSAY CARBOXYHB QUANT Reviewed 09/18/2012 12:00 AM DRAIN/INJ JOINT/BURSA W/O US Reviewed 09/18/2012 12:00 AM Kenalog, Per 10 Mg [facility] [place]#6129-7995-44 Reviewed 10/13/2012 12:00 AM COMPREHEN METABOLIC PANEL Reviewed 10/13/2012 12:00 AM LIPID PANEL Reviewed 10/13/2012 12:00 AM GLYCOSYLATED HEMOGLOBIN TEST Reviewed 10/13/2012 12:00 AM MICROALBUMIN SEMIQUANT Reviewed 04/15/2010 12:00 AM MAMMOGRAM SCREENING Reviewed 12/06/2012 12:00 AM DRAIN/INJ JOINT/BURSA W/O US Reviewed 12/06/2012 12:00 AM Kenalog, Per 10 Mg [facility] [place]#6767-1717-69 Reviewed 12/22/2012 12:00 AM TOTAL CORTISOL Reviewed 04/26/2013 12:00 AM DRAIN/INJ JOINT/BURSA W/O US Reviewed 04/26/2013 12:00 AM Kenalog, Per 10 Mg [facility] [place]#0153-2177-88 Reviewed 05/10/2013 12:00 AM DRAIN/INJ JOINT/BURSA W/O US Reviewed 05/10/2013 12:00 AM Kenalog, Per 10 Mg [facility] [place]#9474-2305-64 Reviewed 05/10/2013 12:00 AM DRAIN/INJ JOINT/BURSA W/O US Reviewed 05/10/2013 12:00 AM Kenalog, Per 10 Mg [facility] [place]#6706-3034-11 Reviewed 05/28/2013 12:00 AM MAMMOGRAM SCREENING Reviewed [...] 12:00 AM Kenalog, Per 10 Mg [facility] [place]#5870-5424-23 Reviewed 04/05/2014 12:00 AM COMPLETE CBC W/AUTO [...] 11:24AM Lumbago Dec 23 2011 11:24AM Cervicalgia b 2011 11:24AM Osteoarthritis [...] Policy Group Number Start Date [facility] Gpa [id number] Saturday, 2015 [employer] [place] [id number] Saturday, 2009 [employer] [facility] [id number] Wednesday, 2009 History of Encounters Visit Date Visit Type Provider 03/08/2017 Office visit Brannon Simpsonte DO 01/25/2017 Office visit Brannon Simpsonte DO 01/19/2017 Office visit Regina Mcnally WELFARE MANAGER 01/04/2017 Procedures Reagan Lehman DO 12/24/2016 Office visit Brannon Simpsonte DO 12/23/2016 Surgery Reagan Lehman DO 12/14/2016 Office visit Reagan Lehman DO 11/25/2016 Office visit Brannon Tidwellhite DO 11/19/2016 Office visit Sandra Yoan WELFARE MANAGER 11/02/2016 Office visit Lakia Reina WELFARE MANAGER 09/09/2016 Office visit Brannon Tidwellhite DO 05/18/2016 Office visit Brannon Tidwellhite DO 05/05/2016 Office visit 05/05/2016 Office visit Brannon Manuel DO 02/05/2016 Office visit Brannon Manuel DO 12/09/2015 Voided Cass BRAY 10/13/2015 Office visit Brannon Jackson DO 09/18/2015 Nurse visit Cass BRAY 09/03/2015 Procedures Reaganmichael Lehman DO 08/29/2015 Office visit Brannon Jackson DO 08/20/2015 Office visit Cass BRAY 08/01/2015 Office visit Cass BARY 07/02/2015 Office visit Cass BRAY 06/04/2015 Office [...] visit Brannon Simpsonte DO 09/05/2014 Office visit Cassrosamaria Arellano MIX CRUSHER OPERATOR 07/29/2014 Office visit Cass DevinMonse Adan MIX CRUSHER OPERATOR 07/18/2014 Office visit Brannon Manuel DO 07/03/2014 Office visit Rob Ruiz WELFARE MANAGER 06/11/2014 Office visit Cass Arellano MIX CRUSHER OPERATOR 04/29/2014 Office visit Cass Arellano MIX CRUSHER OPERATOR 04/29/2014 Office visit Brannon Manuel DO 04/05/2014 Office visit Harjinder Paiz PA-C 02/25/2014 Office visit Cass Arellano MIX CRUSHER OPERATOR 01/02/2014 Office visit Cass Arellano MIX CRUSHER OPERATOR 12/18/2013 Office visit Cass Arellano MIX CRUSHER OPERATOR 09/13/2013 Office visit Brannon Jackson DO 08/27/2013 Office visit Regina Mcnally WELFARE MANAGER 08/17/2013 Office visit Ray Tripathi WELFARE MANAGER 05/21/2013 Office visit Brannon Jackson DO 05/10/2013 Office visit Anirudh Conway MD 04/26/2013 Office visit Anirudh Conway MD 12/22/2012 Office visit Brannon Jackson DO 12/14/2012 [facility] Sandra Ca MD 12/12/2012 Office visit Brannon Jackson DO 12/12/2012 [facility] Sandra Ca MD 12/06/2012 Office visit Anirudh Conway MD 11/24/2012 Office visit Regina Mcnally WELFARE MANAGER 10/12/2012 [facility] Anirudh Conway MD 10/10/2012 Office visit Brannon Jackson DO 09/18/2012 Office visit Anirudh Conway MD 09/01/2012 Office visit Brannon Jackson DO 08/21/2012 Office visit Brannon Jackson DO 08/01/2012 Office visit Brannon Jackson DO 07/11/2012 Office visit Regina Mcnally WELFARE MANAGER 06/14/2012 Office visit Anirudh Conway MD [...] Anderson Dawkins MD 10/07/2011 Office visit Brannon Jackosn DO 04/27/2011 Office visit Brannon Jackson DO 04/16/2011 Office visit Brannon Jackson DO 12/18/2010 Office visit Brannon Jackson DO 11/17/2010 Office visit Brannon Jackson DO 10/08/2010 Office visit Brannon Jackson DO 08/18/2010 Office visit Regina Mcnally APRN 02/03/2010 Office visit Brannon Jackson DO 12/02/2009 Office visit Brannon Jackson DO 06/27/2009 Office visit Brannon Jackson DO
--- OUTSIDE RECORDS SUMMARY | 2018-10-25 09:01 | XMS REPORT ---
Author Author Brannon Jackson [facility] Address [address] [place], [place] [id number] Care Team Providers Care Packing House Supervisor Name Role Phone Brannon Jackson PCP Unavailable [...] 3 mo supply for mail order through [employer] amitriptyline oral tablet 10 mg 08/29/2014 11/22/2015 [...] as needed for pain for 30 days Name Start Date Expiration [...] by oral route daily for 30 days [place] Thyroid oral tablet 120 mg 12/14/2012 12/09/2013 [...] times per day for 5 days alprazolam Oral tablet 0.5 mg 02/07/2015 [...] HC BMI BSA BMI Percentile O2 Sat(%) 03/10/2015 4:30:00 PM 132 mmHg 86 mmHg [...] 12:00 AM X-RAY EXAM OF HIPS Returned 03/10/2015 12:00 AM FIBRIN DEGRADATION QUANT Returned 04/16/2011 12:00 AM X-RAY EXAM OF [...] BILI 0.90 mg/dLCALCIUM 9.50 mg/dLeGFR >60 mL/min/1.73 [id number] 18.0 U/L 01/02/2014 10:02 AM GLUCOSE 134.0 [...] joint; Knee Dec 12 2014 3:20PM Lumbago b 2014 3:20PM Pain [...] Osteoarthritis, Left Hip Mar 10 2015 4:19PM Payers Insurance Name Company Name Plan Name Plan Number Policy Number Policy Group Number Start Date [facility] [id number] Wednesday, 2009 [facility] [id number] Saturday, 2009 History of Encounters Visit Date Visit Type Provider 03/10/2015 Office visit Cass BRAY 02/25/2015 Office visit Cass BRAY 02/05/2015 Nurse visit Cass BRAY 12/17/2014 Office visit Brannon Jackson DO 12/17/2014 Hospital Dinesh Zhu MD 12/12/2014 Office visit Cass BRAY 10/29/2014 Office visit Cass BRAY 10/02/2014 Office visit Cass ARCINIEGAP 09/20/2014 Office visit Brannon Manuel DO 09/05/2014 Office visit Cass Arellano NURSE RESEARCH 07/29/2014 Office visit Cass Arellano NURSE RESEARCH 07/18/2014 Office visit Brannon Manuel DO 07/03/2014 Office visit Rob Downingran VENDOR MANAGEMENT ASSOCIATE 06/11/2014 Office visit Cass Arellano NURSE RESEARCH 04/29/2014 Office visit Brannon Manuel DO 04/29/2014 Office visit Cass Arellano NURSE RESEARCH 04/05/2014 Office visit Harjinder Paiz PA-C 02/25/2014 Office visit Cass Arellano NURSE RESEARCH 01/02/2014 Office visit Cass Arellano NURSE RESEARCH 12/18/2013 Office visit Cass ARCINIEGAP 09/13/2013 Office visit Brannon Jackson DO 08/27/2013 Office visit Regina Mcnally VENDOR MANAGEMENT ASSOCIATE 08/17/2013 Office visit Ray Tripathi VENDOR MANAGEMENT ASSOCIATE 05/21/2013 Office visit Brannon Jackson DO 05/10/2013 Office visit Anirudh Conway MD 04/26/2013 Office visit Anirudh Conway MD 12/22/2012 Office visit Brannon Jackson DO 12/14/2012 [facility] Sandra Ca MD 12/12/2012 Office visit Brannon Jackson DO 12/12/2012 [facility] Sandra Ca MD 12/06/2012 Office visit Anirudh Conway MD 11/24/2012 Office visit Regina Mcnally VENDOR MANAGEMENT ASSOCIATE 10/12/2012 [facility] Anirudh Conway MD 10/10/2012 Office visit Brannon Jackson DO 09/18/2012 Office visit Anirudh Conway MD 09/01/2012 Office visit Brannon Jackson DO 08/21/2012 Office visit Brannon Jackson DO 08/01/2012 Office visit Brannon Jackson DO 07/11/2012 Office visit Regina Mcnally VENDOR MANAGEMENT ASSOCIATE 06/14/2012 Office visit Anirudh Conway MD 05/25/2012 Office visit Anirudh Conway MD 05/04/2012 Office visit Brannon Jackson DO 12/23/2011 Office visit Anirudh Conway MD 12/16/2011 Office visit Brannon Jackson DO 12/06/2011 Office visit Anirudh Conway MD 11/11/2011 Office visit Brannon Jackson DO 10/28/2011 Office visit Brannon Jackson DO 10/22/2011 Hospital Valery Cerna MD 10/21/2011 [facility] [...]
--- OUTSIDE RECORDS SUMMARY | 2018-10-25 09:03 | XMS REPORT ---
Author Author Brannon Jackson [facility] Address [address] [place], [place] [address] Care Team Providers Care Deck Worker Name Role Phone Brannon Jackson PCP Unavailable [...] TAKE 1 TABLET DAILY for 90 days tolterodine 4 mg oral [...] glucose 4 times a day Dx: e11.65 Name Start Date Expiration Date SIG Comments [...] 2 times per day for 7 days [place] Thyroid 120 mg oral tablet 12/14/2012 12/09/2013 [...] route every 6 hours for 30 days sulfamethoxazole-trimethoprim 800-160 mg oral tablet 02/04/2017 02/11/2017 take 1 tablet by oral route 2 times per day for 7 days Januvia 100 mg oral tablet 01/25/2017 02/08/2017 take 1 tablet (100 mg) by oral route once daily for 14 days Discontinued Name Start Date Discontinued Date [...] 12/13/2011 12:00 AM Kenalog per 10Mg Im-[facility]#[address]-89(Man) Reviewed 12/23/2011 12:00 AM DRAIN/INJ JOINT/BURSA W/O US Reviewed 12/23/2011 12:00 AM Kenalog 40 Mg [facility]#0498-3154-91 Reviewed 11/19/2016 12:00 AM X-RAY EXAM OF HAND Reviewed 01/19/2017 12:00 AM COMPLETE CBC W/AUTO DIFF WBC Reviewed 01/19/2017 12:00 AM COMPREHEN METABOLIC PANEL Reviewed 01/19/2017 12:00 AM GLYCOSYLATED HEMOGLOBIN TEST Reviewed 05/25/2012 12:00 AM INJ TRIGGER POINT 1/2 MUSCL Reviewed 05/25/2012 12:00 AM Kenalog, Per 10 Mg [facility]#6531-0488-19 Reviewed 06/14/2012 12:00 AM DRAIN/INJ JOINT/BURSA W/O US Reviewed 06/14/2012 12:00 AM Kenalog, Per 10 Mg [facility]#6804-8097-65 Reviewed 07/11/2012 12:00 AM THER/PROPH/DIAG INJ SC/IM Reviewed 07/11/2012 12:00 AM Decadron 1 mg [facility]#[id number] (Manuel) Reviewed 07/11/2012 12:00 AM Depo-Medrol 80 mg [facility]#[id number]-Espknwgn Reviewed 08/21/2012 12:00 AM ASSAY CARBOXYHB QUANT Reviewed 09/18/2012 12:00 AM DRAIN/INJ JOINT/BURSA W/O US Reviewed 09/18/2012 12:00 AM Kenalog, Per 10 Mg [facility]#1335-7612-53 Reviewed 10/13/2012 12:00 AM COMPREHEN METABOLIC PANEL Reviewed 10/13/2012 12:00 AM LIPID PANEL Reviewed 10/13/2012 12:00 AM GLYCOSYLATED HEMOGLOBIN TEST Reviewed 10/13/2012 12:00 AM MICROALBUMIN SEMIQUANT Reviewed 04/15/2010 12:00 AM MAMMOGRAM SCREENING Reviewed 12/06/2012 12:00 AM DRAIN/INJ JOINT/BURSA W/O US Reviewed 12/06/2012 12:00 AM Kenalog, Per 10 Mg [facility]#7349-2338-12 Reviewed 12/22/2012 12:00 AM TOTAL CORTISOL Reviewed 04/26/2013 12:00 AM DRAIN/INJ JOINT/BURSA W/O US Reviewed 04/26/2013 12:00 AM Kenalog, Per 10 Mg [facility]#5049-6164-88 Reviewed 05/10/2013 12:00 AM DRAIN/INJ JOINT/BURSA W/O US Reviewed 05/10/2013 12:00 AM Kenalog, Per 10 Mg [facility]#1113-5605-70 Reviewed 05/10/2013 12:00 AM DRAIN/INJ JOINT/BURSA W/O US Reviewed 05/10/2013 12:00 AM Kenalog, Per 10 Mg [facility]#9030-5588-42 Reviewed 05/28/2013 12:00 AM MAMMOGRAM SCREENING Reviewed [...] 12:00 AM Kenalog, Per 10 Mg [facility]#9272-5522-38 Reviewed 04/05/2014 12:00 AM COMPLETE CBC W/AUTO [...] Policy Group Number Start Date Gpa Gpa [id number] Saturday, 2015 [employer] [place] [id number] Saturday, 2009 [employer] [place] [id number] Wednesday, 2009 History of Encounters Visit Date Visit Type Provider 01/25/2017 Office visit Brannon Jackson DO 01/19/2017 Office visit Regina Mcnally TUMBLING MACHINE OPERATOR 01/04/2017 Procedures Reagan Lehman DO 12/24/2016 Office visit Brannon Jackson DO 12/23/2016 Surgery Reagan Lehman DO 12/14/2016 Office visit Reagan Lehman DO 11/25/2016 Office visit Brannon Jackson DO 11/19/2016 Office visit Sandra Milton TUMBLING MACHINE OPERATOR 11/02/2016 Office visit Lakia Reina TUMBLING MACHINE OPERATOR 09/09/2016 Office visit Brannon Jackson DO 05/18/2016 Office visit Brannno Jackson DO 05/05/2016 Office visit 05/05/2016 Office [...] Dinesh Zhu MD 04/01/2015 Office visit Brannon Jcakson DO 03/10/2015 Office visit Cass BRAY 02/25/2015 [...] 12/22/2012 Office visit Brannon Jackson DO 12/14/2012 Hospital Sandra Ca MD 12/12/2012 Office visit Brannon Jackson DO 12/12/2012 [facility] Sandra Ca MD 12/06/2012 Office visit Anirudh Conway MD 11/24/2012 Office visit Regina Mcnally APRN 10/12/2012 [facility] Anirudh Conway MD 10/10/2012 Office visit Brannon Jackson DO 09/18/2012 Office visit Anirudh Conway MD 09/01/2012 Office visit Brannon Simpsonte DO 08/21/2012 Office visit Brannon Simpsonte DO 08/01/2012 Office visit Brannon Simpsonte DO 07/11/2012 Office visit Regina Mcnally TUMBLING MACHINE OPERATOR 06/14/2012 Office visit Anirudh Conway MD 05/25/2012 Office visit Anirudh Conway MD 05/04/2012 Office visit Brannon Jackson DO 12/23/2011 Office visit Anirudh Conway MD 12/16/2011 Office visit Brannon Jackson DO 12/06/2011 Office visit Anirudh Conway MD 11/11/2011 Office visit Brannon Jackson DO 10/28/2011 Office visit Brannon Jackson DO 10/22/2011 [facility] Valery Cerna MD 10/21/2011 [facility] Valery Cerna MD 10/19/2011 Office visit Brannon Jackson DO 10/19/2011 [facility] Anderson Dawkins MD 10/07/2011 Office visit Brannon Manuel DO 04/27/2011 Office visit Brannon Manuel DO 04/16/2011 Office visit Brannon Manuel DO 12/18/2010 Office visit Brannon Jackson DO 11/17/2010 Office visit Brannon Manuel DO 10/08/2010 Office visit Brannon Manuel DO 08/18/2010 Office visit Regina Mcnally APRN 02/03/2010 Office visit Brannon Manuel DO 12/02/2009 Office visit Brannon Manuel DO 06/27/2009 Office visit Brannon Jackson DO
[2018-10-25] MEDS ORDERED: morphine PF (DURAMORPH) 10 MG/10 ML AMP ONE (09:06)
--- OUTSIDE RECORDS SUMMARY | 2018-10-25 09:06 | XMS REPORT ---
Author Author Brannon Jackson [facility] Address [address] [place], [place] [id number] Care Team Providers Care Life Enrichment Manager Name Role Phone Brannon Jackson PCP [...] 2 times per day for 7 days [place] Thyroid 120 mg oral tablet 12/14/2012 12/09/2013 [...] 12/13/2011 12:00 AM Kenalog per 10Mg [facility]#[address]-63(Man) Reviewed 12/23/2011 12:00 AM DRAIN/INJ JOINT/BURSA W/O US Reviewed 12/23/2011 12:00 AM Kenalog 40 Mg [facility]#1775-0540-97 Reviewed 11/19/2016 12:00 AM X-RAY EXAM OF HAND Reviewed 01/19/2017 12:00 AM COMPLETE CBC W/AUTO DIFF WBC Reviewed 01/19/2017 12:00 AM COMPREHEN METABOLIC PANEL Reviewed 01/19/2017 12:00 AM GLYCOSYLATED HEMOGLOBIN TEST Reviewed 05/25/2012 12:00 AM INJ TRIGGER POINT 1/2 MUSCL Reviewed 05/25/2012 12:00 AM Kenalog, Per 10 Mg [facility]#6526-5170-45 Reviewed 06/14/2012 12:00 AM DRAIN/INJ JOINT/BURSA W/O US Reviewed 06/14/2012 12:00 AM Kenalog, Per 10 Mg [facility]#4971-3932-75 Reviewed 07/11/2012 12:00 AM THER/PROPH/DIAG INJ SC/IM Reviewed 07/11/2012 12:00 AM Decadron 1 mg [facility]#[id number] ([place]) Reviewed 07/11/2012 12:00 AM Depo-Medrol 80 mg [facility]#[id number]-Luneruwa Reviewed 08/21/2012 12:00 AM ASSAY CARBOXYHB QUANT Reviewed 09/18/2012 12:00 AM DRAIN/INJ JOINT/BURSA W/O US Reviewed 09/18/2012 12:00 AM Kenalog, Per 10 Mg [facility]#3211-6883-43 Reviewed 10/13/2012 12:00 AM COMPREHEN METABOLIC PANEL Reviewed 10/13/2012 12:00 AM LIPID PANEL Reviewed 10/13/2012 12:00 AM GLYCOSYLATED HEMOGLOBIN TEST Reviewed 10/13/2012 12:00 AM MICROALBUMIN SEMIQUANT Reviewed 04/15/2010 12:00 AM MAMMOGRAM SCREENING Reviewed 12/06/2012 12:00 AM DRAIN/INJ JOINT/BURSA W/O US Reviewed 12/06/2012 12:00 AM Kenalog, Per 10 Mg [facility]#5354-9700-28 Reviewed 12/22/2012 12:00 AM TOTAL CORTISOL Reviewed 04/26/2013 12:00 AM DRAIN/INJ JOINT/BURSA W/O US Reviewed 04/26/2013 12:00 AM Kenalog, Per 10 Mg [facility]#1890-6114-97 Reviewed 05/10/2013 12:00 AM DRAIN/INJ JOINT/BURSA W/O US Reviewed 05/10/2013 12:00 AM Kenalog, Per 10 Mg [facility]#1738-8330-67 Reviewed 05/10/2013 12:00 AM DRAIN/INJ JOINT/BURSA W/O US Reviewed 05/10/2013 12:00 AM Kenalog, Per 10 Mg [facility]#6374-1470-12 Reviewed 05/28/2013 12:00 AM MAMMOGRAM SCREENING Reviewed [...] 12:00 AM Kenalog, Per 10 Mg [facility]#4511-7685-80 Reviewed 04/05/2014 12:00 AM COMPLETE CBC W/AUTO [...] Policy Group Number Start Date Gpa Gpa [id number] Saturday, 2015 [employer] [place] [id number] Saturday, 2009 [employer] [place] [id number] Wednesday, 2009 History of Encounters Visit Date Visit Type Provider 01/25/2017 Office visit Brannon Jackson DO 01/19/2017 Office visit Regina Mcnally FLUE LINING DIPPER 01/04/2017 Procedures Reagan Lehman DO 12/24/2016 Office visit Brannon Jackson DO 12/23/2016 Surgery Reagan Lehman DO 12/14/2016 Office visit Reagan Lehman DO 11/25/2016 Office visit Brannon Jackson DO 11/19/2016 Office visit Sandra Milton FLUE LINING DIPPER 11/02/2016 Office visit Lakia Reina FLUE LINING DIPPER 09/09/2016 Office visit Brannon Jackson DO 05/18/2016 [...] visit Brannon Jackson DO 12/12/2014 Office visit aCss BRAY 10/29/2014 Office visit Cass BRAY 10/02/2014 Office visit Cass BRAY 09/20/2014 Office visit Brannon Jackson DO 09/05/2014 Office visit Cass BRAY 07/29/2014 Office visit Cass BARY 07/18/2014 Office visit Brannon Jackson DO 07/03/2014 [...] 12/12/2012 Office visit Brannon Jackson DO 12/12/2012 [facility] Sandra Ca MD 12/06/2012 Office visit Anirudh Conway MD 11/24/2012 Office visit Regina Mcnally APRN 10/12/2012 [facility] Anirudh Conway MD 10/10/2012 Office visit Brannon Jackson DO 09/18/2012 Office visit Anirudh Conway MD 09/01/2012 Office visit Brannon Simpsonte DO 08/21/2012 Office visit Brannon Simpsonte DO 08/01/2012 Office visit Brannon Simpsonte DO 07/11/2012 Office visit Regina Mcnally FLUE LINING DIPPER 06/14/2012 Office visit Anirudh Conway MD 05/25/2012 Office visit Anirudh Conway MD 05/04/2012 Office visit Brannon Jackson DO 12/23/2011 Office visit Anirudh Conway MD 12/16/2011 Office visit Brannon Jackson DO 12/06/2011 Office visit Anirudh Conway MD 11/11/2011 Office visit Brannon Jackson DO 10/28/2011 Office visit Brannon Jackson DO 10/22/2011 [facility] Valery Cerna MD 10/21/2011 [facility] Valery Cerna MD 10/19/2011 Office visit Brannon Jackson DO 10/19/2011 [facility] Anderson Dawkins MD 10/07/2011 Office visit Brannon Manuel DO 04/27/2011 Office visit Brannon Mnauel DO 04/16/2011 Office visit Brannon Manuel DO 12/18/2010 Office visit Brannon Jackson DO 11/17/2010 Office visit Brannon Manuel DO 10/08/2010 Office visit Brannon Manuel DO 08/18/2010 Office visit Regina Mcnally APRN 02/03/2010 Office visit Brannon Manuel DO 12/02/2009 Office visit Brannon Manuel DO 06/27/2009 Office visit Brannon Jackson DO
--- OUTSIDE RECORDS SUMMARY | 2018-10-25 09:07 | XMS REPORT ---
Author Author Brannon Jackson [facility] Address [address] [place], [place] [address] Care Team Providers Care Brick Siding Applicator Name Role Phone Brannon Jackson PCP Unavailable [...] 3 mo supply for mail order through [employer] amitriptyline oral tablet 10 mg 08/29/2014 11/22/2015 [...] oral route once daily for 102 days Name Start Date Expiration Date SIG [...] by oral route daily for 30 days [place] Thyroid oral tablet 120 mg 12/14/2012 12/09/2013 [...] 2 times per day for 5 days hydrocodone-acetaminophen oral tablet 10-325 mg 02/05/2015 [...] 12:00 AM X-RAY EXAM OF HIPS Returned 04/16/2011 12:00 AM X-RAY EXAM OF [...] BILI 0.90 mg/dLCALCIUM 9.50 mg/dLeGFR >60 mL/min/1.73 [id number] 18.0 U/L 01/02/2014 10:02 AM GLUCOSE 134.0 [...] mg/ dLCALCIUM 9.50 mg/dLeGFR >60 mL/min/1.73 m2 History Of Immunizations Not available. History of [...] Right b 2014 3:20PM Osteoarthritis, Left Hip Dec 12 2014 3:20PM Fatigue Dec 12 2014 3:20PM Diabetes Mellitus, Type II b 2014 12:09PM Dysuria b 2014 12:09PM Gastroesophageal Reflux Dec 17 2014 8:20AM Diabetes Mellitus, Type II b 2014 8:20AM Hyperlipidemia, mixed b 2014 8:20AM Hypertension b 2014 8:20AM Overactive bladder Dec 17 2014 8:20AM Chronic pain syndrome Feb 05 2015 11:45AM Severe Left Anterior Hip pain, chronic, left Worsening Feb 25 2015 11:53AM Payers Insurance Name Company Name Plan Name Plan Number Policy Number Policy Group Number Start Date [employer] [place] [id number] Wednesday, 2009 [employer] [place] [id number] Saturday, 2009 History of Encounters Visit Date Visit Type Provider 02/25/2015 Office visit Cass BRAY 02/05/2015 Nurse visit Cass BRAY 12/17/2014 Office visit Brannon Jackson DO 12/17/2014 Hospital Dinesh Zhu MD 12/12/2014 Office visit Cass BRAY 10/29/2014 Office visit Cass BRYA 10/02/2014 Office visit Cass BRAY 09/20/2014 Office [...] visit Cass BRAY 09/13/2013 Office visit Brannon Simpsonte DO 08/27/2013 Office visit Regina Mcnally MARINE INSULATOR 08/17/2013 Office visit Ray Tripathi MARINE INSULATOR 05/21/2013 Office visit Brannon Jackson DO 05/10/2013 Office visit Anirudh Conway MD 04/26/2013 Office visit Anirudh Conway MD 12/22/2012 Office visit Brannon Manuel DO 12/14/2012 [facility] Sandra Ca MD 12/12/2012 Office visit Brannon Manuel DO 12/12/2012 [facility] Sandra Ca MD 12/06/2012 Office visit Anirudh Conway MD 11/24/2012 Office visit Regina Mcnally MARINE INSULATOR 10/12/2012 [facility] Anirudh Conway MD 10/10/2012 Office visit Brannon Jackson DO 09/18/2012 Office visit Anirudh Conway MD 09/01/2012 Office visit Brannon Jackson DO 08/21/2012 Office visit Brannon Manuel DO 08/01/2012 Office visit Brannon Jackson DO 07/11/2012 Office visit Regina Mcnally MARINE INSULATOR 06/14/2012 Office visit Anirudh Conway MD 05/25/2012 Office visit Anirudh Conway MD 05/04/2012 Office visit Brannon Jackson DO 12/23/2011 Office visit Anirudh Conway MD 12/16/2011 Office visit Brannon Jackson DO 12/06/2011 Office visit Anirudh Conway MD 11/11/2011 Office visit Brannon Manuel DO 10/28/2011 Office visit Brannon Manuel DO 10/22/2011 [facility] Valery Cerna MD 10/21/2011 [facility] Valery Cerna MD 10/19/2011 Office visit Brannon Manuel DO 10/19/2011 [facility] Anderson Dawkins MD 10/07/2011 Office visit Brannon Manuel DO 04/27/2011 Office visit Brannon Manuel DO 04/16/2011 Office visit Brannon Manuel DO 12/18/2010 Office visit Brannon Manuel DO 11/17/2010 Office visit Brannon Jackson DO 10/08/2010 Office visit Brnanon Manuel DO 08/18/2010 Office visit Regina Mcnally MARINE INSULATOR 02/03/2010 Office visit Brannon Jackson DO 12/02/2009 Office visit Brannon Jackson DO 06/27/2009 Office visit Brannon Jackson DO
--- OUTSIDE RECORDS SUMMARY | 2018-10-25 09:09 | XMS REPORT ---
Author Author Brannon Jackson [facility] Address [address] [place], [place] [address] Care Team Providers Care Making Machine Operator Name Role Phone Brannon Jackson PCP [...] 09/01/2015 use as directed single [place] amitriptyline 10 mg oral tablet 10/02/2015 09/26/2016 take 1 tablet by oral route once a day (at bedtime) for 90 days hydrocodone-acetaminophen 10-325 mg oral tablet 10/09/2015 [...] 2 times per day for 7 days [place] Thyroid 120 mg oral tablet 12/14/2012 12/09/2013 [...] 10Mg Im-[facility]#[address]-25(Man) Reviewed 12/23/2011 12:00 AM DRAIN/INJ JOINT/BURSA W/O US Reviewed 12/23/2011 12:00 AM Kenalog 40 Mg Im-[facility]#4375-2422-58 Reviewed 05/25/2012 12:00 AM INJ TRIGGER POINT 1/2 MUSCL Reviewed 05/25/2012 12:00 AM Kenalog, Per 10 Mg [facility]#6862-7015-55 Reviewed 06/14/2012 12:00 AM DRAIN/INJ JOINT/BURSA W/O US Reviewed 06/14/2012 12:00 AM Kenalog, Per 10 Mg [facility]#7286-5293-79 Reviewed 07/11/2012 12:00 AM THER/PROPH/DIAG INJ SC/IM Reviewed 07/11/2012 12:00 AM Decadron 1 mg [facility]#[id number] (Manuel) Reviewed 07/11/2012 12:00 AM Depo-Medrol 80 mg [facility]#[id number]-Fvqketdz Reviewed 08/21/2012 12:00 AM ASSAY CARBOXYHB QUANT Reviewed 09/18/2012 12:00 AM DRAIN/INJ JOINT/BURSA W/O US Reviewed 09/18/2012 12:00 AM Kenalog, Per 10 Mg [facility]#9987-0636-16 Reviewed 10/13/2012 12:00 AM COMPREHEN METABOLIC PANEL Reviewed 10/13/2012 12:00 AM LIPID PANEL Reviewed 10/13/2012 12:00 AM GLYCOSYLATED HEMOGLOBIN TEST Reviewed 10/13/2012 12:00 AM MICROALBUMIN SEMIQUANT Reviewed 04/15/2010 12:00 AM MAMMOGRAM SCREENING Reviewed 12/06/2012 12:00 AM DRAIN/INJ JOINT/BURSA W/O US Reviewed 12/06/2012 12:00 AM Kenalog, Per 10 Mg [facility]#5897-2392-92 Reviewed 12/22/2012 12:00 AM TOTAL CORTISOL Reviewed 04/26/2013 12:00 AM DRAIN/INJ JOINT/BURSA W/O US Reviewed 04/26/2013 12:00 AM Kenalog, Per 10 Mg [facility]#0883-9723-44 Reviewed 05/10/2013 12:00 AM DRAIN/INJ JOINT/BURSA W/O US Reviewed 05/10/2013 12:00 AM Kenalog, Per 10 Mg [facility]#1519-8147-12 Reviewed 05/10/2013 12:00 AM DRAIN/INJ JOINT/BURSA W/O US Reviewed 05/10/2013 12:00 AM Kenalog, Per 10 Mg [facility]#2439-2765-33 Reviewed 05/28/2013 12:00 AM MAMMOGRAM SCREENING Reviewed [...] 12:00 AM Kenalog, Per 10 Mg [facility]#8468-5330-96 Reviewed 04/05/2014 12:00 AM COMPLETE CBC W/AUTO [...] BILI 0.90 mg/dLCALCIUM 9.50 mg/dLeGFR >60 mL/min/1.73 [id number] 18.0 U/L 01/02/2014 10:02 AM GLUCOSE 134.0 [...] Policy Group Number Start Date [employer] [facility] [id number] Wednesday, 2009 [employer] [facility] [id number] Saturday, 2009 History of Encounters Visit Date [...] Cass BRAY 10/29/2014 Office visit Cass Arellano PLASTICS PATTERNMAKER 10/02/2014 Office visit Cass Arellano PLASTICS PATTERNMAKER 09/20/2014 Office visit Brannon Manuel DO 09/05/2014 Office visit Cass Arellano PLASTICS PATTERNMAKER 07/29/2014 Office visit Cass Arellano PLASTICS PATTERNMAKER 07/18/2014 Office visit Brannon Manuel DO 07/03/2014 Office visit Rob Joseph PRINT CUTTER 06/11/2014 Office visit Cass Arellano PLASTICS PATTERNMAKER 04/29/2014 Office visit Cass Arellano PLASTICS PATTERNMAKER 04/29/2014 Office visit Brannon Manuel DO 04/05/2014 Office visit Harjinder Paiz PA-C 02/25/2014 Office visit Cass Arellano PLASTICS PATTERNMAKER 01/02/2014 Office visit Cass Arellano PLASTICS PATTERNMAKER 12/18/2013 Office visit Cass Arellano PLASTICS PATTERNMAKER 09/13/2013 Office visit Brannon Jackson DO 08/27/2013 Office visit Regina Mcnally PRINT CUTTER 08/17/2013 Office visit Ray Tripathi PRINT CUTTER 05/21/2013 Office visit Brannon Jackson DO 05/10/2013 Office visit Anirudh Conway MD 04/26/2013 Office visit Anirudh Conway MD 12/22/2012 Office visit Brannon Jackson DO 12/14/2012 [facility] Sandra Ca MD 12/12/2012 Office visit Brannon Jackson DO 12/12/2012 [facility] Sandra Ca MD 12/06/2012 Office visit Anirudh Conway MD 11/24/2012 Office visit Regina Mcnally PRINT CUTTER 10/12/2012 [facility] Anirudh Conway MD 10/10/2012 Office visit Brannon Jackson DO 09/18/2012 Office visit Anirudh Conway MD 09/01/2012 Office visit Brannon Jackson DO 08/21/2012 Office visit Brannon Jackson DO 08/01/2012 Office visit Brannon Jackson DO 07/11/2012 Office visit Regina Mcnally PRINT CUTTER 06/14/2012 Office visit Anirudh Conway MD 05/25/2012 [...]
--- OUTSIDE RECORDS SUMMARY | 2018-10-25 09:10 | XMS REPORT ---
Author Author Brannon Jackson [facility] Address [address] [place], [place] [id number] Care Team Providers Care Loan Coordinator Name Role Phone Brannon Jackson PCP Unavailable [...] 3 mo supply for mail order through [employer] amitriptyline oral tablet 10 mg 08/29/2014 11/22/2015 [...] route every 8 hours for 30 days Name Start Date [...] 2 times per day for 7 days [place] Thyroid oral tablet 120 mg 12/14/2012 12/09/2013 [...] 5 days alprazolam Oral tablet 0.5 mg 03/13/2015 [...] HC BMI BSA BMI Percentile O2 Sat(%) 04/09/2015 11:50:00 AM 132 mmHg 82 mmHg [...] BILI 0.90 mg/dLCALCIUM 9.50 mg/dLeGFR >60 mL/min/1.73 f5MOFURE 18.0 U/L 01/02/2014 10:02 AM GLUCOSE 134.0 [...] joint; Bilateral Hip Feb 2011 4:20PM Bursitis Fe2011 4:20PM Pain in joint; Knee Feb 2011 [...] 2014 3:20PM Diabetes Mellitus, Type II b 13 2014 12:09PM Dysuria b 2014 12:09PM Gastroesophageal [...] Mellitus, Type II Apr 18 2015 11:27AM Payers Insurance Name Company Name Plan Name Plan Number Policy Number Policy Group Number Start Date [employer] [place] [id number] Wednesday, 2009 [employer] [place] [id number] Saturday, 2009 History of Encounters Visit Date Visit Type Provider 04/09/2015 Office visit Cass BRAY 04/01/2015 Office [...] APRN 08/17/2013 Office visit Ray KirbyMonse Tripathi INTERNATIONAL ACCOUNTING MANAGER 05/21/2013 Office visit Brannon Jackson DO 05/10/2013 Office visit Anirudh Conwya MD 04/26/2013 Office visit Anirudh Conway MD 12/22/2012 Office visit Brannon Jackson DO 12/14/2012 [facility] Sandra Ca MD 12/12/2012 Office visit Brannon Jackson DO 12/12/2012 [facility] Sandra Ca MD 12/06/2012 Office visit Anirudh Conway MD 11/24/2012 Office visit Regina Mcnally INTERNATIONAL ACCOUNTING MANAGER 10/12/2012 [facility] Anirudh Conway MD 10/10/2012 Office visit Brannon Simpsonte DO 09/18/2012 Office visit Anirudh Conway MD 09/01/2012 Office visit Brannon Simpsonte DO 08/21/2012 Office visit Brannon Jackson DO 08/01/2012 Office visit Brannon Simpsonte DO 07/11/2012 Office visit Regina Mcnally INTERNATIONAL ACCOUNTING MANAGER 06/14/2012 Office visit Anirudh Conway MD 05/25/2012 Office visit Anirudh Conway MD 05/04/2012 Office visit Brannon Jackson DO 12/23/2011 Office visit Anirudh Conway MD 12/16/2011 Office visit Brannon Jackson DO 12/06/2011 Office visit Anirudh Conway MD 11/11/2011 Office visit Brannon Jackson DO 10/28/2011 Office visit Brannon Manuel DO 10/22/2011 [facility] Valery Cerna MD 10/21/2011 [facility] Valery Cerna MD 10/19/2011 Office visit Brannon Manuel DO 10/19/2011 [facility] Anderson Dawkins MD 10/07/2011 Office visit Brannon Manuel DO 04/27/2011 Office visit Brannon Manuel DO 04/16/2011 Office visit Brannon Manuel DO 12/18/2010 Office visit Brannon Manuel DO 11/17/2010 Office visit Brannon Manuel DO 10/08/2010 Office visit Brannon Manuel DO 08/18/2010 Office visit Regina Mcnally INTERNATIONAL ACCOUNTING MANAGER 02/03/2010 Office visit Brannon Manuel DO 12/02/2009 Office visit Brannon Manuel DO 06/27/2009 Office visit Brannon Manuel DO
--- OUTSIDE RECORDS SUMMARY | 2018-10-25 09:13 | XMS REPORT ---
Author Author Karyna Gilbert [facility] Address [address] [place], [place] [id number] Care Team Providers Care Sash Finisher Name Role Phone Karyna Gilbert PCP Unavailable [...] once leave on 8-14 hr, then bathe1 Name Start Date Expiration Date SIG Comments [...] 2 times per day for 7 days [place] Thyroid 120 mg oral tablet 12/14/2012 12/09/2013 [...] Reviewed 12/13/2011 12:00 AM Kenalog per 10Mg Im-[facility]#[address]-44(Man) Reviewed 12/23/2011 12:00 AM DRAIN/INJ JOINT/BURSA W/O US Reviewed 12/23/2011 12:00 AM Kenalog 40 Mg Im-[facility]#3113-2720-01 Reviewed 11/19/2016 12:00 AM X-RAY EXAM OF HAND Reviewed 01/19/2017 12:00 AM COMPLETE CBC W/AUTO DIFF WBC Reviewed 01/19/2017 12:00 AM COMPREHEN METABOLIC PANEL Reviewed 01/19/2017 12:00 AM GLYCOSYLATED HEMOGLOBIN TEST Reviewed 05/25/2012 12:00 AM INJ TRIGGER POINT 1/2 MUSCL Reviewed 05/25/2012 12:00 AM Kenalog, Per 10 Mg ND#9459-1069-44 Reviewed 06/14/2012 12:00 AM DRAIN/INJ JOINT/BURSA W/O US Reviewed 06/14/2012 12:00 AM Kenalog, Per 10 Mg [facility]#3014-0300-40 Reviewed 05/09/2017 12:00 AM MAMMOGRAPHY SCREENING, DIGITAL Reviewed 07/11/2012 12:00 AM THER/PROPH/DIAG INJ SC/IM Reviewed 07/11/2012 12:00 AM Decadron 1 mg [facility]#[id number] (Manuel) Reviewed 07/11/2012 12:00 AM Depo-Medrol 80 mg [facility]#[id number]-Jmazyrjh Reviewed 08/21/2012 12:00 AM ASSAY CARBOXYHB QUANT Reviewed 09/18/2012 12:00 AM DRAIN/INJ JOINT/BURSA W/O US Reviewed 09/18/2012 12:00 AM Kenalog, Per 10 Mg [facility]#2192-2911-70 Reviewed 10/13/2012 12:00 AM COMPREHEN METABOLIC PANEL Reviewed 10/13/2012 12:00 AM LIPID PANEL Reviewed 10/13/2012 12:00 AM GLYCOSYLATED HEMOGLOBIN TEST Reviewed 10/13/2012 12:00 AM MICROALBUMIN SEMIQUANT Reviewed 04/15/2010 12:00 AM MAMMOGRAM SCREENING Reviewed 12/06/2012 12:00 AM DRAIN/INJ JOINT/BURSA W/O US Reviewed 12/06/2012 12:00 AM Kenalog, Per 10 Mg [facility]#5884-7642-63 Reviewed 12/22/2012 12:00 AM TOTAL CORTISOL Reviewed 04/26/2013 12:00 AM DRAIN/INJ JOINT/BURSA W/O US Reviewed 04/26/2013 12:00 AM Kenalog, Per 10 Mg [facility]#6724-3658-43 Reviewed 05/10/2013 12:00 AM DRAIN/INJ JOINT/BURSA W/O US Reviewed 05/10/2013 12:00 AM Kenalog, Per 10 Mg [facility]#4777-3368-76 Reviewed 05/10/2013 12:00 AM DRAIN/INJ JOINT/BURSA W/O US Reviewed 05/10/2013 12:00 AM Kenalog, Per 10 Mg [facility]#4397-5860-90 Reviewed 05/28/2013 12:00 AM MAMMOGRAM SCREENING Reviewed [...] 03/05/2014 12:00 AM Kenalog, Per 10 Mg [facility]#8158-1710-91 Reviewed 04/05/2014 12:00 AM COMPLETE CBC W/AUTO [...] Number Policy Group Number Start Date [facility] [id number] Saturday, 2015 [employer] [place] [id number] Saturday, 2009 [employer] [place] [id number] Wednesday, 2009 History of Encounters Visit Date Visit Type Provider 06/29/2017 Office visit Karyna Gilbert LEAD TINNER 06/18/2017 Office visit Karyna Gilbert LEAD TINNER 05/09/2017 Office visit Brannon Jackson DO 03/08/2017 Office visit Brannon Jackson DO 01/25/2017 Office visit Brannon Jackson DO 01/19/2017 Office visit Regina Mcnally LEAD TINNER 01/04/2017 Procedures Reagan Lehman DO 12/24/2016 Office visit Brannon Jackson DO 12/23/2016 Surgery Reagan Lehman DO 12/14/2016 Office visit Reagan Lehman DO 11/25/2016 Office visit Brannon Jackson DO 11/19/2016 Office visit Sandra Milton LEAD TINNER 11/02/2016 Office visit Lakia Reina LEAD TINNER 09/09/2016 Office visit Brannon Jackson DO 05/18/2016 [...] visit Cass BARY 07/02/2015 Office visit Cass RBAY 06/04/2015 Office visit Cass BRAY 05/15/2015 Office [...] Manuel DO 08/27/2013 Office visit Regina Mcnally LEAD TINNER 08/17/2013 Office visit Ray Tripathi APRN 05/21/2013 Office visit Brannon Jackson DO 05/10/2013 Office visit Anirudh Conway MD 04/26/2013 Office visit Anirudh Conway MD 12/22/2012 Office visit Brannon Manuel DO 12/14/2012 [facility] Sandra Ca MD 12/12/2012 Office visit Brannon Jackson DO 12/12/2012 [facility] Sandra Ca MD 12/06/2012 Office visit Anirudh Conway MD 11/24/2012 Office visit Regina Mcnally LEAD TINNER 10/12/2012 [facility] Anirudh Conway MD 10/10/2012 Office visit Brannon Jackson DO 09/18/2012 Office visit Anirudh Conway MD 09/01/2012 Office visit Brannon Jackson DO 08/21/2012 Office visit Brannon Jackson DO 08/01/2012 Office visit Brannon Jackson DO 07/11/2012 Office visit Regina Mcnally LEAD TINNER 06/14/2012 Office visit Anirudh Conway MD 05/25/2012 [...] 10/19/2011 Office visit Brannon Manuel DO 10/19/2011 [facility] Anderson Dawkins MD 10/07/2011 Office visit Brannon Manuel DO 04/27/2011 Office visit Brannon Manuel DO 04/16/2011 Office visit Brannon Jackson DO 12/18/2010 Office visit Brannon Jackson DO 11/17/2010 Office visit Brannon Jackson DO 10/08/2010 Office visit Brannon Jackson DO 08/18/2010 Office visit Regina Mcnally LEAD TINNER 02/03/2010 Office visit Brannon Jackson DO 12/02/2009 Office visit Brannon Jackson DO 06/27/2009 Office visit Brannon Jackson DO
--- OUTSIDE RECORDS SUMMARY | 2018-10-25 09:15 | XMS REPORT ---
Author Author Brannon Jackson [facility] Address [address] [place], [place] [id number] Care Team Providers Care Finish Sander Name Role Phone Brnanon Jackson PCP Unavailable Brannon Jackson PreferredProvider Unavailable [...] tablet by oral route once daily OneTouch [employer] miscellaneous strip 02/03/2017 Test glucose 4 times a day Dx: e11.65 hydrocodone-acetaminophen 10-325 mg oral tablet 02/17/2017 03/19/2017 take 1 tablet by oral route every 6 hours for 30 days Janumet 50-1,000 mg oral tablet 02/21/2017 02/16/2018 take 1 tablet by oral route 2 times per day with meals for 90 days Name Start Date Expiration [...] 2 times per day for 7 days [place] Thyroid 120 mg oral tablet 12/14/2012 12/09/2013 [...] AM Kenalog per 10Mg Im-[facility]#[address]-94(Man) Reviewed 12/23/2011 12:00 AM DRAIN/INJ JOINT/BURSA W/O US Reviewed 12/23/2011 12:00 AM Kenalog 40 Mg Im-[facility]#0766-0436-14 Reviewed 11/19/2016 12:00 AM X-RAY EXAM OF HAND Reviewed 01/19/2017 12:00 AM COMPLETE CBC W/AUTO DIFF WBC Reviewed 01/19/2017 12:00 AM COMPREHEN METABOLIC PANEL Reviewed 01/19/2017 12:00 AM GLYCOSYLATED HEMOGLOBIN TEST Reviewed 05/25/2012 12:00 AM INJ TRIGGER POINT 1/2 MUSCL Reviewed 05/25/2012 12:00 AM Kenalog, Per 10 Mg [facility]#0554-7641-18 Reviewed 06/14/2012 12:00 AM DRAIN/INJ JOINT/BURSA W/O US Reviewed 06/14/2012 12:00 AM Kenalog, Per 10 Mg [facility]#1015-5236-60 Reviewed 07/11/2012 12:00 AM THER/PROPH/DIAG INJ SC/IM Reviewed 07/11/2012 12:00 AM Decadron 1 mg [facility]#[id number] (Manuel) Reviewed 07/11/2012 12:00 AM Depo-Medrol 80 mg [facility]#[id number]-Zfcdtktk Reviewed 08/21/2012 12:00 AM ASSAY CARBOXYHB QUANT Reviewed 09/18/2012 12:00 AM DRAIN/INJ JOINT/BURSA W/O US Reviewed 09/18/2012 12:00 AM Kenalog, Per 10 Mg [facility]#8432-9499-70 Reviewed 10/13/2012 12:00 AM COMPREHEN METABOLIC PANEL Reviewed 10/13/2012 12:00 AM LIPID PANEL Reviewed 10/13/2012 12:00 AM GLYCOSYLATED HEMOGLOBIN TEST Reviewed 10/13/2012 12:00 AM MICROALBUMIN SEMIQUANT Reviewed 04/15/2010 12:00 AM MAMMOGRAM SCREENING Reviewed 12/06/2012 12:00 AM DRAIN/INJ JOINT/BURSA W/O US Reviewed 12/06/2012 12:00 AM Kenalog, Per 10 Mg [facility]#1227-7791-57 Reviewed 12/22/2012 12:00 AM TOTAL CORTISOL Reviewed 04/26/2013 12:00 AM DRAIN/INJ JOINT/BURSA W/O US Reviewed 04/26/2013 12:00 AM Kenalog, Per 10 Mg [facility]#6791-4285-07 Reviewed 05/10/2013 12:00 AM DRAIN/INJ JOINT/BURSA W/O US Reviewed 05/10/2013 12:00 AM Kenalog, Per 10 Mg [facility]#5483-6236-93 Reviewed 05/10/2013 12:00 AM DRAIN/INJ JOINT/BURSA W/O US Reviewed 05/10/2013 12:00 AM Kenalog, Per 10 Mg [facility]#6447-8203-44 Reviewed 05/28/2013 12:00 AM MAMMOGRAM SCREENING Reviewed [...] 12:00 AM Kenalog, Per 10 Mg [facility]#7324-0293-46 Reviewed 04/05/2014 12:00 AM COMPLETE CBC W/AUTO [...] Number Start Date [facility] [id number] Saturday, 2015 [id number] Saturday, 2009 [facility] [id number] Wednesday, 2009 History of Encounters Visit Date Visit Type Provider 01/25/2017 Office visit Brannon Jackson DO 01/19/2017 Office visit Regina Mcnally SPANISH INSTRUCTOR 01/04/2017 Procedures Reagan Lehman DO 12/24/2016 Office visit Brannon Jackson DO 12/23/2016 Surgery Reagan Lehman DO 12/14/2016 Office visit Reagan Lehman DO 11/25/2016 Office visit Brannon Jackson DO 11/19/2016 Office visit Sandra Milton SPANISH INSTRUCTOR 11/02/2016 Office visit Lakia Reina SPANISH INSTRUCTOR 09/09/2016 Office visit Brannon Jackson DO 05/18/2016 [...] APRN 08/17/2013 Office visit Ray KirbyMonse Tripathi SPANISH INSTRUCTOR 05/21/2013 Office visit Brannon Manuel DO 05/10/2013 Office visit Anirudh Conway MD 04/26/2013 Office visit Anirudh Conway MD 12/22/2012 Office visit Brannon Manuel DO 12/14/2012 [facility] Sandra Ca MD 12/12/2012 Office visit Brannon Manuel DO 12/12/2012 [facility] Sandra Ca MD 12/06/2012 Office visit Anirudh Conway MD 11/24/2012 Office visit Regina Mcnally SPANISH INSTRUCTOR 10/12/2012 [facility] Anirudh Conway MD 10/10/2012 Office visit Brannon Simpsonte DO 09/18/2012 Office visit Anirudh Conway MD 09/01/2012 Office visit Brannon Simpsonte DO 08/21/2012 Office visit Brannon Jackson DO 08/01/2012 Office visit Brannon Simpsonte DO 07/11/2012 Office visit Regina Mcnally SPANISH INSTRUCTOR 06/14/2012 Office visit Anirudh Conway MD 05/25/2012 Office visit Anirudh Conway MD 05/04/2012 Office visit Brannon Jackson DO 12/23/2011 Office visit Anirudh Conway MD 12/16/2011 Office visit Brannon Jackson DO 12/06/2011 Office visit Anirudh Conway MD 11/11/2011 Office visit Brannon Jackson DO 10/28/2011 Office visit Brannon Maunel DO 10/22/2011 [facility] Valery Cerna MD 10/21/2011 [facility] Valery Cerna MD 10/19/2011 Office visit Brannon Manuel DO 10/19/2011 [facility] Anderson Dawkins MD 10/07/2011 Office visit Brannon Manuel DO 04/27/2011 Office visit Brannon Manuel DO 04/16/2011 Office visit Brannon Manuel DO 12/18/2010 Office visit Brannon Manuel DO 11/17/2010 Office visit Brannon Manuel DO 10/08/2010 Office visit Brannon Manuel DO 08/18/2010 Office visit Regina Mcnally SPANISH INSTRUCTOR 02/03/2010 Office visit Brannon Manuel DO 12/02/2009 Office visit Brannon Manuel DO 06/27/2009 Office visit Brannon Manuel DO
--- OUTSIDE RECORDS SUMMARY | 2018-10-25 09:17 | XMS REPORT ---
Author Author Cass Arellano [facility] Address [address] [place], [place] [id number] Care Team Providers Care Electrical Construction Project Manager Name Role Phone Cass Arellano PCP [...] 3 mo supply for mail order through [employer] amitriptyline 10 mg oral tablet 08/29/2014 11/22/2015 [...] tablet by oral route once daily hydrocodone-acetaminophen 10-325 mg oral tablet 06/04/2015 07/04/2015 take 1 tablet by oral route every 6 hours for 30 days cyclobenzaprine 10 mg oral tablet 06/04/2015 07/04/2015 take 1 tablet by oral route every 8 hours as needed for 30 days muscle spasm losartan-hydrochlorothiazide 100-25 mg oral tablet 06/19/2015 TAKE 1 TABLET DAILY Accu-Chek Ana Cristina miscellaneous strip 06/27/2015 test glucose 2 times per day Dx: 250.00 alprazolam 0.5 mg oral tablet 06/27/2015 07/27/2015 [...] 2 times per day for 7 days [place] Thyroid 120 mg oral tablet 12/14/2012 12/09/2013 [...] HC BMI BSA BMI Percentile O2 Sat(%) 06/04/2015 11:34:00 AM 108 mmHg 62 mmHg [...] Reviewed 12/13/2011 12:00 AM Kenalog per 10Mg Im-[facility]#[address]-08(Man) Reviewed 12/23/2011 12:00 AM DRAIN/INJ JOINT/BURSA W/O US Reviewed 12/23/2011 12:00 AM Kenalog 40 Mg Im-[facility]#0299-4436-84 Reviewed 05/25/2012 12:00 AM INJ TRIGGER POINT 1/2 MUSCL Reviewed 05/25/2012 12:00 AM Kenalog, Per 10 Mg [facility]#3993-0601-03 Reviewed 06/14/2012 12:00 AM DRAIN/INJ JOINT/BURSA W/O US Reviewed 06/14/2012 12:00 AM Kenalog, Per 10 Mg [facility]#0197-7272-39 Reviewed 07/11/2012 12:00 AM THER/PROPH/DIAG INJ SC/IM Reviewed 07/11/2012 12:00 AM Decadron [address] [facility]#[id number] (Manuel) Reviewed 07/11/2012 12:00 AM Depo-Medrol [address] [facility]#[id number] Reviewed 08/21/2012 12:00 AM ASSAY CARBOXYHB QUANT Reviewed 09/18/2012 12:00 AM DRAIN/INJ JOINT/BURSA W/O US Reviewed 09/18/2012 12:00 AM Kenalog, Per [address] [facility]#9454-0662-02 Reviewed 10/13/2012 12:00 AM COMPREHEN METABOLIC PANEL Reviewed 10/13/2012 12:00 AM LIPID PANEL Reviewed 10/13/2012 12:00 AM GLYCOSYLATED HEMOGLOBIN TEST Reviewed 10/13/2012 12:00 AM MICROALBUMIN SEMIQUANT Reviewed 04/15/2010 12:00 AM MAMMOGRAM SCREENING Reviewed 12/06/2012 12:00 AM DRAIN/INJ JOINT/BURSA W/O US Reviewed 12/06/2012 12:00 AM Kenalog, Per [address] [facility]#4225-1260-05 Reviewed 12/22/2012 12:00 AM TOTAL CORTISOL Reviewed 04/26/2013 12:00 AM DRAIN/INJ JOINT/BURSA W/O US Reviewed 04/26/2013 12:00 AM Kenalog, Per [address] [facility]#1654-9806-90 Reviewed 05/10/2013 12:00 AM DRAIN/INJ JOINT/BURSA W/O US Reviewed 05/10/2013 12:00 AM Kenalog, Per [address] [facility]#6657-1520-51 Reviewed 05/10/2013 12:00 AM DRAIN/INJ JOINT/BURSA W/O US Reviewed 05/10/2013 12:00 AM Kenalog, Per [address] [facility]#4180-4250-61 Reviewed 05/28/2013 12:00 AM MAMMOGRAM SCREENING Reviewed [...] 12:00 AM Kenalog, Per [address] [facility]#1253-8485-68 Reviewed 04/05/2014 12:00 AM COMPLETE CBC W/AUTO [...] BILI 0.90 mg/dLCALCIUM 9.50 mg/dLeGFR >60 mL/min/1.73 [id number] 18.0 U/L 01/02/2014 10:02 AM GLUCOSE 134.0 [...] 2015 11:36AM Lumbago Jun 04 2015 11:36AM Payers Insurance Name Company Name Plan Name Plan Number Policy Number Policy Group Number Start Date [employer] [place] [id number] Wednesday, 2009 [employer] [place] [id number] Saturday, 2009 History of Encounters Visit Date Visit Type Provider 06/04/2015 Office visit Cass BRAY 05/15/2015 Office [...] visit Brannon Manuel DO 09/05/2014 Office visit Cassrosamaria Arellano MATCH UP PERSON 07/29/2014 Office visit Cass M. Adan MATCH UP PERSON 07/18/2014 Office visit Brannon Manuel DO 07/03/2014 Office visit Rbo Ruiz DRAFTER ENGINEERING 06/11/2014 Office visit Cass Arellano MATCH UP PERSON 04/29/2014 Office visit Cassrosamaria Arellano MATCH UP PERSON 04/29/2014 Office visit Brannon Jackson DO 04/05/2014 Office visit Harjinder Paiz PA-C 02/25/2014 Office visit Cass Arellano MATCH UP PERSON 01/02/2014 Office visit Cass Arellano MATCH UP PERSON 12/18/2013 Office visit Cass Arellano MATCH UP PERSON 09/13/2013 Office visit Brannon Jackson DO 08/27/2013 Office visit Regina Mcnally DRAFTER ENGINEERING 08/17/2013 Office visit Ray Tripathi DRAFTER ENGINEERING 05/21/2013 Office visit Brannon Jackson DO 05/10/2013 Office visit Anirudh Conway MD 04/26/2013 Office visit Anirudh Conway MD 12/22/2012 Office visit Brannon Jackson DO 12/14/2012 [facility] Sandra Ca MD 12/12/2012 Office visit Brannon Jackson DO 12/12/2012 [facility] Sandra Ca MD 12/06/2012 Office visit Anirudh Conway MD 11/24/2012 Office visit Regina Mcnally DRAFTER ENGINEERING 10/12/2012 [facility] Anirudh Conway MD 10/10/2012 Office visit Brannon Jackson DO 09/18/2012 Office visit Anirudh Conway MD 09/01/2012 Office visit Brannon Jackson DO 08/21/2012 Office visit Brannon Jackson DO 08/01/2012 Office visit Brannon Jackson DO 07/11/2012 Office visit Regina Mcnally DRAFTER ENGINEERING 06/14/2012 Office visit Anirudh Conway MD 05/25/2012 [...]
--- OUTSIDE RECORDS SUMMARY | 2018-10-25 09:19 | XMS REPORT ---
Author Author Sandra Milton [facility] Address [address] [place], [place] [address] Care Team Providers Care Histology Supervisor Name Role Phone Sandra Milton PCP Unavailable Brannon Jackson PreferredProvider Unavailable Allergies and Adverse Reactions Name Reaction Notes Promethazine vomiting Zofran vomiting Plan of Treatment Planned Activity Comments Planned Date Planned Time Plan/Goal MRI pelvis and hip left wo contrast 08/01/2015 12:00 AM Hand Min 3Views - Main 11/19/2016 12:00 AM C-Reactive Protein (CRP) 05/04/2012 12:00 [...] times a day for 90 days gabapentin 300 mg oral capsule 09/09/2016 09/04/2017 [...] oral route once daily for 90 days fluconazole 100 mg oral tablet 09/13/2016 take 1 tablet by oral route every other day Name Start Date Expiration Date SIG [...] 2 times per day for 7 days [place] Thyroid 120 mg oral tablet 12/14/2012 [...] times per day as needed Taking Hydrocodone hydrocodone-acetaminophen 10-325 mg oral tablet 09/09/2016 10/09/2016 take 1 tablet by oral route every 6 hours for 30 days amoxicillin 500 mg oral capsule 11/02/2016 11/12/2016 [...] HC BMI BSA BMI Percentile O2 Sat(%) 11/19/2016 5:41:00 PM 180 mmHg 120 mmHg [...] Reviewed 12/13/2011 12:00 AM Kenalog per 10Mg Im-[facility]#[address]-76(Man) Reviewed 12/23/2011 12:00 AM DRAIN/INJ JOINT/BURSA W/O US Reviewed 12/23/2011 12:00 AM Kenalog 40 Mg Im-[facility]#0981-6428-80 Reviewed 05/25/2012 12:00 AM INJ TRIGGER POINT 1/2 MUSCL Reviewed 05/25/2012 12:00 AM Kenalog, Per 10 Mg [facility]#8330-3699-99 Reviewed 06/14/2012 12:00 AM DRAIN/INJ JOINT/BURSA W/O US Reviewed 06/14/2012 12:00 AM Kenalog, Per 10 Mg [place]#2935-2579-27 Reviewed 07/11/2012 12:00 AM THER/PROPH/DIAG INJ SC/IM Reviewed 07/11/2012 12:00 AM Decadron 1 mg [facility]#[id number] (Manuel) Reviewed 07/11/2012 12:00 AM Depo-Medrol 80 mg [facility]#[id number]-Knnhrfog Reviewed 08/21/2012 12:00 AM ASSAY CARBOXYHB QUANT Reviewed 09/18/2012 12:00 AM DRAIN/INJ JOINT/BURSA W/O US Reviewed 09/18/2012 12:00 AM Kenalog, Per 10 Mg [facility]#4293-9562-67 Reviewed 10/13/2012 12:00 AM COMPREHEN METABOLIC PANEL Reviewed 10/13/2012 12:00 AM LIPID PANEL Reviewed 10/13/2012 12:00 AM GLYCOSYLATED HEMOGLOBIN TEST Reviewed 10/13/2012 12:00 AM MICROALBUMIN SEMIQUANT Reviewed 04/15/2010 12:00 AM MAMMOGRAM SCREENING Reviewed 12/06/2012 12:00 AM DRAIN/INJ JOINT/BURSA W/O US Reviewed 12/06/2012 12:00 AM Kenalog, Per 10 Mg [facility]#6477-7834-73 Reviewed 12/22/2012 12:00 AM TOTAL CORTISOL Reviewed 04/26/2013 12:00 AM DRAIN/INJ JOINT/BURSA W/O US Reviewed 04/26/2013 12:00 AM Kenalog, Per 10 Mg [facility]#1291-7071-03 Reviewed 05/10/2013 12:00 AM DRAIN/INJ JOINT/BURSA W/O US Reviewed 05/10/2013 12:00 AM Kenalog, Per 10 Mg [facility]#1182-7054-32 Reviewed 05/10/2013 12:00 AM DRAIN/INJ JOINT/BURSA W/O US Reviewed 05/10/2013 12:00 AM Kenalog, Per 10 Mg [facility]#4204-3268-77 Reviewed 05/28/2013 12:00 AM MAMMOGRAM SCREENING Reviewed [...] Kenalog, Per 10 Mg [facility]#6701-9883-48 Reviewed 04/05/2014 12:00 AM COMPLETE CBC W/AUTO [...] joint; Knee b 2014 3:20PM Lumbago Feb 12 2014 3:20PM Pain in joint; shoulder region, Right b 2014 3:20PM Osteoarthritis, Left Hip Feb 12 2014 3:20PM Fatigue Feb 2014 3:20PM [...] 2:54PM Varicose veins of both lower extremities Matias 2014 10:30AM Hypersomnia Apr 01 2015 10:30AM Left [...] Left hand pain Nov 19 2016 5:44PM Payers Insurance Name Company Name Plan Name Plan Number Policy Number Policy Group Number Start Date Gpa Gpa [id number] Saturday, 2015 [employer] [place] [id number] Saturday, 2009 [employer] [place] [id number] Wednesday, 2009 History of Encounters Visit Date Visit Type Provider 11/19/2016 Office visit Sandra Milton APRN 11/02/2016 [...] DO 04/09/2015 Office visit Cass BRAY 04/01/2015 [facility] Dinesh Zhu MD 04/01/2015 Office visit Brannon Manuel DO 03/10/2015 Office visit Cass BRAY 02/25/2015 Office visit Cass BRAY 02/05/2015 Nurse visit Cass BRAY 12/17/2014 [facility] Dinesh Zhu MD 12/17/2014 Office visit [...] 12/22/2012 Office visit Brannon Jackson DO 12/14/2012 [facility] Sandra Ca MD 12/12/2012 Office visit Brannon Jackson DO 12/12/2012 [facility] Sandra Ca MD 12/06/2012 Office visit Anirudh Conway MD 11/24/2012 Office visit Regina Mcnally APRN 10/12/2012 [facility] Anirudh Conway MD 10/10/2012 Office visit Brannon Jackson DO 09/18/2012 Office visit Anirudh Conway MD 09/01/2012 Office visit Brannon Jackson DO 08/21/2012 Office visit Brannon Jackson DO 08/01/2012 Office visit Brannon Jackson DO 07/11/2012 Office visit Regina Mcnally ENTRY LEVEL SOFTWARE DEVELOPER 06/14/2012 Office visit Anirudh Conway MD 05/25/2012 Office visit Anirudh Conway MD 05/04/2012 Office visit Brannon Jackson DO 12/23/2011 Office visit Anirudh Conway MD 12/16/2011 Office visit Brannon Jackson DO 12/06/2011 Office visit Anirudh Conway MD 11/11/2011 Office visit Brannon Jackson DO 10/28/2011 Office visit Brannon Jackson DO 10/22/2011 [facility] Valery Cerna MD 10/21/2011 [facility] Valery Cerna MD 10/19/2011 Office visit Brannon Jackson DO 10/19/2011 [facility] Anderson Dawkins MD 10/07/2011 Office visit Brannon Jackson DO 04/27/2011 Office visit Brannon Jackson DO 04/16/2011 Office visit Brannon Jackson DO 12/18/2010 Office visit Brannon Jackson DO 11/17/2010 Office visit Brannon Jackson DO 10/08/2010 Office visit Brannon Jackson DO 08/18/2010 Office visit Regina Mcnally ENTRY LEVEL SOFTWARE DEVELOPER 02/03/2010 Office visit Brannon Jackson DO 12/02/2009 Office visit Brannon Jackson DO 06/27/2009 Office visit Brannon Jackson DO
--- OUTSIDE RECORDS SUMMARY | 2018-10-25 09:21 | XMS REPORT ---
Author Author Brannon Jackson [facility] Address [address] [place], [place] [id number] Care Team Providers Care Meal Miller Name Role Phone Brannon Jackson PCP Unavailable [...] TABLET DAILY Tivorbex 40 mg oral capsule 09/01/2017 take 1 capsule (40 mg) by oral [...] 2 times per day for 7 days [place] Thyroid 120 mg oral tablet 12/14/2012 12/09/2013 [...] Reviewed 12/13/2011 12:00 AM Kenalog per 10Mg Im-[facility][Note 2]#[address]-08(Man) Reviewed 12/23/2011 12:00 AM DRAIN/INJ JOINT/BURSA W/O US Reviewed 12/23/2011 12:00 AM Kenalog 40 Mg Im-[facility][Note 2]#1716-0262-95 Reviewed 11/19/2016 12:00 AM X-RAY EXAM OF HAND Reviewed 01/19/2017 12:00 AM COMPLETE CBC W/AUTO DIFF WBC Reviewed 01/19/2017 12:00 AM COMPREHEN METABOLIC PANEL Reviewed 01/19/2017 12:00 AM GLYCOSYLATED HEMOGLOBIN TEST Reviewed 05/25/2012 12:00 AM INJ TRIGGER POINT 1/2 MUSCL Reviewed 05/25/2012 12:00 AM Kenalog, Per 10 Mg [facility]#2092-5708-06 Reviewed 06/14/2012 12:00 AM DRAIN/INJ JOINT/BURSA W/O US Reviewed 06/14/2012 12:00 AM Kenalog, Per 10 Mg [facility]#6173-6616-74 Reviewed 05/09/2017 12:00 AM MAMMOGRAPHY SCREENING, DIGITAL Reviewed 07/11/2012 12:00 AM THER/PROPH/DIAG INJ SC/IM Reviewed 07/11/2012 12:00 AM Decadron 1 mg [facility]#[id number] (Manuel) Reviewed 07/11/2012 12:00 AM Depo-Medrol 80 mg [facility]#[id number]-Rlmhzzib Reviewed 08/21/2012 12:00 AM ASSAY CARBOXYHB QUANT Reviewed 09/01/2017 12:00 AM RADIOLOGIC EXAMINATION KNEE 1/2 VIEWS Reviewed 09/18/2012 12:00 AM DRAIN/INJ JOINT/BURSA W/O US Reviewed 09/18/2012 12:00 AM Kenalog, Per 10 Mg [facility]#4134-1504-12 Reviewed 10/13/2012 12:00 AM COMPREHEN METABOLIC PANEL Reviewed 10/13/2012 12:00 AM LIPID PANEL Reviewed 10/13/2012 12:00 AM GLYCOSYLATED HEMOGLOBIN TEST Reviewed 10/13/2012 12:00 AM MICROALBUMIN SEMIQUANT Reviewed 04/15/2010 12:00 AM MAMMOGRAM SCREENING Reviewed 12/06/2012 12:00 AM DRAIN/INJ JOINT/BURSA W/O US Reviewed 12/06/2012 12:00 AM Kenalog, Per 10 Mg [facility]#9082-9224-34 Reviewed 12/22/2012 12:00 AM TOTAL CORTISOL Reviewed 04/26/2013 12:00 AM DRAIN/INJ JOINT/BURSA W/O US Reviewed 04/26/2013 12:00 AM Kenalog, Per 10 Mg [facility]#8569-8025-81 Reviewed 05/10/2013 12:00 AM DRAIN/INJ JOINT/BURSA W/O US Reviewed 05/10/2013 12:00 AM Kenalog, Per 10 Mg [facility]#9247-6662-05 Reviewed 05/10/2013 12:00 AM DRAIN/INJ JOINT/BURSA W/O US Reviewed 05/10/2013 12:00 AM Kenalog, Per 10 Mg [facility]#2959-7037-93 Reviewed 05/28/2013 12:00 AM MAMMOGRAM SCREENING Reviewed [...] 03/05/2014 12:00 AM Kenalog, Per 10 Mg [facility]#8370-0703-70 Reviewed 04/05/2014 12:00 AM COMPLETE CBC W/AUTO [...] Policy Number Policy Group Number Start Date [facility] [id number] Saturday, 2015 [employer] [facility] [id number] Saturday, 2009 [employer] [place] [id number] Wednesday, 2009 History of Encounters Visit Date Visit Type Provider 09/01/2017 Office visit Brannon Jackson DO 06/29/2017 Office visit Karyna Gilbert HOP SEPARATOR 06/18/2017 Office visit Karyna Gilbert HOP SEPARATOR 05/09/2017 Office visit Brannon Jackson DO 03/08/2017 Office visit Brannon Jackson DO 01/25/2017 Office visit Brannon Jackson DO 01/19/2017 Office visit Regina Mcnally HOP SEPARATOR 01/04/2017 Procedures Reagan Lehman DO 12/24/2016 Office visit Brannon Jackson DO 12/23/2016 Surgery Reagan Lehman DO 12/14/2016 Office visit Reagan Lehman DO 11/25/2016 Office visit Brannon Jackson DO 11/19/2016 Office visit Sandra Yoan HOP SEPARATOR 11/02/2016 Office visit Lakia Reina HOP SEPARATOR 09/09/2016 Office visit Brannon Jackson DO 05/18/2016 [...] Ruiz APRN 06/11/2014 Office visit Cass Arellano SLICING MACHINE TENDER 04/29/2014 Office visit Cassrosamaria Arellano SLICING MACHINE TENDER 04/29/2014 Office visit Brannon Manuel DO 04/05/2014 Office visit Harjinder Paiz PA-C 02/25/2014 Office visit Cass Arellano SLICING MACHINE TENDER 01/02/2014 Office visit Cass Arellano SLICING MACHINE TENDER 12/18/2013 Office visit Cass MMonse Arellano SLICING MACHINE TENDER 09/13/2013 Office visit Brannon Jackson DO 08/27/2013 Office visit Regina Mcnally HOP SEPARATOR 08/17/2013 Office visit Ray Tripathi HOP SEPARATOR 05/21/2013 Office visit Brannon Jackson DO 05/10/2013 Office visit Anirudh Conway MD 04/26/2013 Office visit Anirudh Conway MD 12/22/2012 Office visit Brannon Jackson DO 12/14/2012 [facility] Sandra Ca MD 12/12/2012 Office visit Brannon Jackson DO 12/12/2012 [facility] Sandra aC MD 12/06/2012 Office visit Anirudh Conway MD 11/24/2012 Office visit Regina Mcnally HOP SEPARATOR 10/12/2012 [facility] Anirudh Conway MD 10/10/2012 Office visit Brannon Jackson DO 09/18/2012 Office visit Anirudh Conway MD 09/01/2012 Office visit Brannon Jackson DO 08/21/2012 Office visit Brannon Jackson DO 08/01/2012 Office visit Brannon Jackson DO 07/11/2012 Office visit Regina Mcnally HOP SEPARATOR 06/14/2012 Office visit Anirudh Conway MD 05/25/2012 Office visit Anirudh Conway MD 05/04/2012 Office visit Brannon Jackson DO 12/23/2011 Office visit Anirudh Conway MD 12/16/2011 Office visit Brannon Jackson DO 12/06/2011 Office visit Anirudh Conway MD 11/11/2011 Office visit Brannon Jackson DO 10/28/2011 Office visit Brannon Jackson DO 10/22/2011 [facility] Valery Cerna MD 10/21/2011 [facility] Valery Cerna MD 10/19/2011 Office visit Brannon Jackson DO 10/19/2011 [facility] Anderson aDwkins MD 10/07/2011 Office visit Brannon Jackson DO [...]
--- OUTSIDE RECORDS SUMMARY | 2018-10-25 09:23 | XMS REPORT ---
Author Author Brannon Jackson [facility] Address [address] [place], [place] [id number] Care Team Providers Care Wildlife Technician Name Role Phone Brannon Jackson PCP Unavailable Brannon Jackson PreferredProvider Unavailable Allergies and Adverse Reactions Name Reaction Notes Promethazine vomiting Zofran vomiting Plan of Treatment Planned Activity Comments Planned Date Planned Time Plan/Goal MRI pelvis and hip left wo contrast 08/01/2015 12:00 AM URIC ACID. 11/25/2016 12:00 AM URIC ACID. 11/25/2016 12:00 AM C-Reactive Protein (CRP) 05/04/2012 12:00 [...] 02/06/2013 12:00 AM Ganglion cyst right hand Hgb A1c 09/20/2014 12:00 AM Microalbumin urine [...] 2 times per day for 7 days [place] Thyroid 120 mg oral tablet 12/14/2012 12/09/2013 [...] 12 hours Cymbalta 30 mg oral capsule,delayed release(/EC) 01/02/2014 01/07/2014 take 2 capsules (60 mg) [...] 90 days omeprazole 40 mg oral capsule,delayed release(/EC) 08/30/2014 12/19/2014 TAKE 1 CAPSULE BY ORAL [...] HC BMI BSA BMI Percentile O2 Sat(%) 11/25/2016 3:26:00 PM 162 mmHg 98 mmHg [...] per 10Mg Im-[facility]#[address]-63(Man) Reviewed 12/23/2011 12:00 AM DRAIN/INJ JOINT/BURSA W/O US Reviewed 12/23/2011 12:00 AM Kenalog 40 Mg Im-[facility]#8284-1916-74 Reviewed 11/19/2016 12:00 AM X-RAY EXAM OF HAND Reviewed 05/25/2012 12:00 AM INJ TRIGGER POINT 1/2 MUSCL Reviewed 05/25/2012 12:00 AM Kenalog, Per 10 Mg [facility]#0358-6591-65 Reviewed 06/14/2012 12:00 AM DRAIN/INJ JOINT/BURSA W/O US Reviewed 06/14/2012 12:00 AM Kenalog, Per 10 Mg [place]#3259-3994-73 Reviewed 07/11/2012 12:00 AM THER/PROPH/DIAG INJ SC/IM Reviewed 07/11/2012 12:00 AM Decadron 1 mg [facility]#[id number] (Manuel) Reviewed 07/11/2012 12:00 AM Depo-Medrol 80 mg [facility]#[id number]-Rrqgnnjm Reviewed 08/21/2012 12:00 AM ASSAY CARBOXYHB QUANT Reviewed 09/18/2012 12:00 AM DRAIN/INJ JOINT/BURSA W/O US Reviewed 09/18/2012 12:00 AM Kenalog, Per 10 Mg [facility]#3850-9629-59 Reviewed 10/13/2012 12:00 AM COMPREHEN METABOLIC PANEL Reviewed 10/13/2012 12:00 AM LIPID PANEL Reviewed 10/13/2012 12:00 AM GLYCOSYLATED HEMOGLOBIN TEST Reviewed 10/13/2012 12:00 AM MICROALBUMIN SEMIQUANT Reviewed 04/15/2010 12:00 AM MAMMOGRAM SCREENING Reviewed 12/06/2012 12:00 AM DRAIN/INJ JOINT/BURSA W/O US Reviewed 12/06/2012 12:00 AM Kenalog, Per 10 Mg [facility]#2304-0974-28 Reviewed 12/22/2012 12:00 AM TOTAL CORTISOL Reviewed 04/26/2013 12:00 AM DRAIN/INJ JOINT/BURSA W/O US Reviewed 04/26/2013 12:00 AM Kenalog, Per 10 Mg [facility]#4557-1904-76 Reviewed 05/10/2013 12:00 AM DRAIN/INJ JOINT/BURSA W/O US Reviewed 05/10/2013 12:00 AM Kenalog, Per 10 Mg [facility]#1497-7215-71 Reviewed 05/10/2013 12:00 AM DRAIN/INJ JOINT/BURSA W/O US Reviewed 05/10/2013 12:00 AM Kenalog, Per 10 Mg [facility]#5585-3528-22 Reviewed 05/28/2013 12:00 AM MAMMOGRAM SCREENING Reviewed [...] 10 Mg [facility]#1617-9151-80 Reviewed 04/05/2014 12:00 AM COMPLETE CBC W/AUTO [...] II Feb 13 2014 12:09PM Dysuria b 2014 12:09PM [...] 3:28PM Ganglion cyst Nov 25 2016 3:28PM Payers Insurance Name Company Name Plan Name Plan Number Policy Number Policy Group Number Start Date [facility] [id number] Saturday, 2015 [employer] [place] [id number] Saturday, 2009 [employer] [place] [id number] Wednesday, 2009 History of Encounters Visit Date Visit Type Provider 11/25/2016 Office visit Brannon Jackson DO 11/19/2016 Office visit Sandra Milton GAS DESULFURIZER 11/02/2016 Office visit Lakia Reina GAS DESULFURIZER 09/09/2016 Office visit Brannon Jackson DO 05/18/2016 Office visit Brannon Jackson DO 05/05/2016 Office visit 05/05/2016 Office visit Brannon Jackson DO 02/05/2016 Office visit Brannon Jackson DO 12/09/2015 Voided Cass Arellano CLINICAL SOCIAL WORK AIDE 10/13/2015 Office visit Brannon Jackson DO 09/18/2015 Nurse visit Cass BRAY 09/03/2015 Procedures Reagan Lehman DO 08/29/2015 Office visit Brannon Tidwellburt [...] Ray Tripathi APRN 05/21/2013 Office visit Brannon Manuel DO 05/10/2013 Office visit Anirudh Conway MD 04/26/2013 Office visit Anirudh Conway MD 12/22/2012 Office visit Brannon Manuel DO 12/14/2012 [facility] Sandra Ca MD 12/12/2012 Office visit Brannon Manuel DO 12/12/2012 [facility] Sandra Ca MD 12/06/2012 Office visit Anirudh Conway MD 11/24/2012 Office visit Regina Mcnally GAS DESULFURIZER 10/12/2012 [facility] Anirudh Conway MD 10/10/2012 Office visit Brannon Manuel DO 09/18/2012 Office visit Anirudh Conway MD 09/01/2012 Office visit Brannon Manuel DO 08/21/2012 Office visit Brannon Manuel DO 08/01/2012 Office visit Brannon Manuel DO 07/11/2012 Office visit Regina Mcnally GAS DESULFURIZER 06/14/2012 Office visit Anirudh Conway MD 05/25/2012 Office visit Anirudh Conway MD 05/04/2012 Office visit Brannon Simpsonte DO 12/23/2011 Office visit Anirudh Conway MD 12/16/2011 Office visit Brannon Manuel DO 12/06/2011 Office visit Anirudh Conway MD 11/11/2011 Office visit Brannon Manuel DO 10/28/2011 Office visit Brannon Manuel DO 10/22/2011 [facility] Valery Cerna MD 10/21/2011 [facility] Valery Cerna MD 10/19/2011 Office visit Brannon Manuel DO 10/19/2011 [facility] Anderson Dawkins MD 10/07/2011 Office visit Brannon Manuel DO 04/27/2011 Office visit Brannon Manuel DO 04/16/2011 Office visit Brannon Manuel DO 12/18/2010 Office visit Brannon Manuel DO 11/17/2010 Office visit Brannon Manuel DO 10/08/2010 Office visit Brannon Manuel DO 08/18/2010 Office visit Regina Mcnally GAS DESULFURIZER 02/03/2010 Office visit Brannon Manuel DO 12/02/2009 Office visit Brannon Manuel DO 06/27/2009 Office visit Brannon Manuel DO
--- OUTSIDE RECORDS SUMMARY | 2018-10-25 09:25 | XMS REPORT ---
Author Author Brannon Jackson [facility] Address [address] [place], [place] [address] Care Team Providers Care Process Controls Technician Name Role Phone Brannon Jackson PCP [...] 2 times per day for 7 days [place] Thyroid 120 mg oral tablet 12/14/2012 12/09/2013 [...] Reviewed 12/13/2011 12:00 AM Kenalog per 10Mg Im-[facility]#[address]-89(Man) Reviewed 12/23/2011 12:00 AM DRAIN/INJ JOINT/BURSA W/O US Reviewed 12/23/2011 12:00 AM Kenalog 40 Mg Im-[facility]#4311-9942-03 Reviewed 11/19/2016 12:00 AM X-RAY EXAM OF HAND Reviewed 01/19/2017 12:00 AM COMPLETE CBC W/AUTO DIFF WBC Reviewed 01/19/2017 12:00 AM COMPREHEN METABOLIC PANEL Reviewed 01/19/2017 12:00 AM GLYCOSYLATED HEMOGLOBIN TEST Reviewed 05/25/2012 12:00 AM INJ TRIGGER POINT 1/2 MUSCL Reviewed 05/25/2012 12:00 AM Kenalog, Per 10 Mg [facility]#5470-2720-86 Reviewed 06/14/2012 12:00 AM DRAIN/INJ JOINT/BURSA W/O US Reviewed 06/14/2012 12:00 AM Kenalog, Per 10 Mg [facility]#7663-4226-25 Reviewed 05/09/2017 12:00 AM MAMMOGRAPHY SCREENING, DIGITAL Reviewed 07/11/2012 12:00 AM THER/PROPH/DIAG INJ SC/IM Reviewed 07/11/2012 12:00 AM Decadron 1 mg [facility]#[id number] (Manuel) Reviewed 07/11/2012 12:00 AM Depo-Medrol 80 mg [facility]#[id number]-Kvlpigbj Reviewed 08/21/2012 12:00 AM ASSAY CARBOXYHB QUANT Reviewed 09/18/2012 12:00 AM DRAIN/INJ JOINT/BURSA W/O US Reviewed 09/18/2012 12:00 AM Kenalog, Per 10 Mg [facility]#5991-4349-61 Reviewed 10/13/2012 12:00 AM COMPREHEN METABOLIC PANEL Reviewed 10/13/2012 12:00 AM LIPID PANEL Reviewed 10/13/2012 12:00 AM GLYCOSYLATED HEMOGLOBIN TEST Reviewed 10/13/2012 12:00 AM MICROALBUMIN SEMIQUANT Reviewed 04/15/2010 12:00 AM MAMMOGRAM SCREENING Reviewed 12/06/2012 12:00 AM DRAIN/INJ JOINT/BURSA W/O US Reviewed 12/06/2012 12:00 AM Kenalog, Per 10 Mg [facility]#1278-1627-51 Reviewed 12/22/2012 12:00 AM TOTAL CORTISOL Reviewed 04/26/2013 12:00 AM DRAIN/INJ JOINT/BURSA W/O US Reviewed 04/26/2013 12:00 AM Kenalog, Per 10 Mg [facility]#0917-3119-17 Reviewed 05/10/2013 12:00 AM DRAIN/INJ JOINT/BURSA W/O US Reviewed 05/10/2013 12:00 AM Kenalog, Per 10 Mg [facility]#7267-1565-99 Reviewed 05/10/2013 12:00 AM DRAIN/INJ JOINT/BURSA W/O US Reviewed 05/10/2013 12:00 AM Kenalog, Per 10 Mg [facility]#1928-5151-57 Reviewed 05/28/2013 12:00 AM MAMMOGRAM SCREENING Reviewed [...] 03/05/2014 12:00 AM Kenalog, Per 10 Mg [facility]#8656-9981-46 Reviewed 04/05/2014 12:00 AM COMPLETE CBC W/AUTO [...] Policy Group Number Start Date Gpa Gpa [id number] Saturday, 2015 [employer] [place] [id number] Saturday, 2009 [employer] [place] [id number] Wednesday, 2009 History of Encounters Visit Date Visit Type Provider 05/09/2017 Office visit Brannon Jackson DO 03/08/2017 Office visit Brannon Jackson DO 01/25/2017 Office visit Brannon Jackson DO 01/19/2017 Office visit Regina Mcnally DIVERSIFIED CROPS FARMER 01/04/2017 Procedures Reagan Lehman DO 12/24/2016 Office visit Brannon Jackson DO 12/23/2016 Surgery Reagan Lehman DO 12/14/2016 Office visit Reagan Lehman DO 11/25/2016 Office visit Brannon Jackson DO 11/19/2016 Office visit Sandra Milton DIVERSIFIED CROPS FARMER 11/02/2016 Office visit Lakia Reina DIVERSIFIED CROPS FARMER 09/09/2016 Office visit Brannon Jackson DO 05/18/2016 [...] 12/22/2012 Office visit Brannon Jackson DO 12/14/2012 [facility] Sandra Ca MD 12/12/2012 Office visit Brannon Jackson DO 12/12/2012 [facility] Sandra Ca MD 12/06/2012 Office visit Anirudh Conway MD 11/24/2012 Office visit Regina Mcnally APRN 10/12/2012 [facility] Anirudh Conway MD 10/10/2012 Office visit Brannon Jackson DO 09/18/2012 Office visit Anirudh Conway MD 09/01/2012 Office visit Brannon Simpsonte DO 08/21/2012 Office visit Brannon Manuel DO 08/01/2012 Office visit Brannon Manuel DO 07/11/2012 Office visit Regina Mcnally DIVERSIFIED CROPS FARMER 06/14/2012 Office visit Anirudh Conway MD 05/25/2012 Office visit Anirudh Conway MD 05/04/2012 Office visit Brannon Jackson DO 12/23/2011 Office visit Anirudh Conway MD 12/16/2011 Office visit Brannon Jackson DO 12/06/2011 Office visit Anirudh Conway MD 11/11/2011 Office visit Brannon Jackson DO 10/28/2011 Office visit Brannon Manuel DO 10/22/2011 [facility] Valery Cerna MD 10/21/2011 [facility] Valery Cerna MD 10/19/2011 Office visit Brannon Manuel DO 10/19/2011 [facility] Anderson Dawkins MD 10/07/2011 Office visit [...]
--- OUTSIDE RECORDS SUMMARY | 2018-10-25 09:27 | XMS REPORT ---
Author Author Brannon Jackson [facility] Address [address] [place], [place] [id number] Care Team Providers Care Director Of Video Analytics Name Role Phone Brannon Jackson PCP Unavailable [...] AM GLYCOSYLATED HEMOGLOBIN TEST 04/18/2015 12:00 AM COMPLETE CBC AUTOMATED 05/23/2015 12:00 AM GLYCOSYLATED HEMOGLOBIN TEST 05/23/2015 12:00 AM ASSAY OF IRON 05/23/2015 12:00 AM LIPID PANEL 05/23/2015 12:00 AM CHEST X-RAY 2VW FRONTAL&LATL 05/23/2015 12:00 AM MICROALBUMIN QUANTITATIVE 05/23/2015 12:00 AM Medications Active Name Start Date Estimated Completion Date SIG Comments Multivitamin, Hair, Skin,and Nails one tablet daily Prozac oral capsule 20 mg 06/25/2014 09/18/2015 take 1 capsule (20 mg) by oral route once daily for 90 days 3 mo supply for mail order through [employer] amitriptyline oral tablet 10 mg 08/29/2014 11/22/2015 [...] once daily hydrocodone-acetaminophen oral tablet 10-325 mg 05/08/2015 06/07/2015 take 1 tablet by oral route every 8 hours for 30 days alprazolam Oral tablet 0.5 mg 05/19/2015 06/18/2015 TAKE ONE TABLET BY MOUTH TWICE DAILY [...] 2 times per day for 7 days [place] Thyroid oral tablet 120 mg 12/14/2012 12/09/2013 [...] HC BMI BSA BMI Percentile O2 Sat(%) 05/15/2015 3:03:00 PM 138 mmHg 80 mmHg [...] past over 25 yrs ago 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 in History of [...] Returned 05/05/2011 12:00 AM MAMMOGRAM SCREENING Reviewed 04/28/2015 12:00 AM MAMMOGRAM SCREENING Reviewed Results Summary [...] BILI 0.90 mg/dLCALCIUM 9.50 mg/dLeGFR >60 mL/min/1.73 [id number] 18.0 U/L 01/02/2014 10:02 AM GLUCOSE 134.0 [...] Bursitis Feb 13 2011 9:26AM Insomnia b 2011 3:26PM Dermatitis [...] Shortness of breath May 23 2015 12:06PM Payers Insurance Name Company Name Plan Name Plan Number Policy Number Policy Group Number Start Date [facility] [id number] Wednesday, 2009 [facility] [id number] Saturday, 2009 History of Encounters Visit Date Visit Type Provider 05/15/2015 Office visit Brannon Jackson DO 05/08/2015 Nurse visit Cass BRAY 04/28/2015 Office visit Brannon Jackson DO 04/09/2015 Office visit Cass BRAY 04/01/2015 Office visit Brannon Jackson DO 04/01/2015 Procedures Dinesh Zhu MD 03/10/2015 Office visit Cass BRAY 02/25/2015 Office [...] visit Harjinder Paiz PA-C 02/25/2014 Office visit Csas BRAY 01/02/2014 Office visit Cass BRAY 12/18/2013 Office visit Cass BRAY 09/13/2013 Office visit Brannon Jackson DO 08/27/2013 Office visit Regina Mcnally APRN 08/17/2013 Office visit Ray Tripathi APRN 05/21/2013 Office visit Brannon Jackson DO 05/10/2013 Office visit Anirudh Conway MD 04/26/2013 Office visit Anirudh Conway MD 12/22/2012 Office visit Brannon Jackson DO 12/14/2012 [facility] Sandra Ca MD 12/12/2012 Office visit Brannon Jackson DO 12/12/2012 [facility] Sandra Ca MD 12/06/2012 Office visit Anirudh Conway MD 11/24/2012 Office visit Regina Mcnlaly SOFTWARE DEVELOPER CONSULTANT 10/12/2012 [facility] Anirudh Conway MD 10/10/2012 Office visit Brannon Jackson DO 09/18/2012 Office visit Anirudh Conway MD 09/01/2012 Office visit Brannon Manuel DO 08/21/2012 Office visit Brannon Manuel DO 08/01/2012 Office visit Brannon Simpsonte DO 07/11/2012 Office visit Regina Mcnally SOFTWARE DEVELOPER CONSULTANT 06/14/2012 Office visit Anirudh Conway MD 05/25/2012 Office visit Anirudh Conway MD 05/04/2012 Office visit Brnanon Jackson DO 12/23/2011 Office visit Anirudh Conway MD 12/16/2011 Office visit Brannon Jackson DO 12/06/2011 Office visit Anirudh Conway MD 11/11/2011 Office visit Brannon Jackson DO 10/28/2011 Office visit Brannon Jackson DO 10/22/2011 [facility] Valery Cerna MD 10/21/2011 [facility] Valery Cerna MD 10/19/2011 Office visit Brannon Manuel DO 10/19/2011 [facility] Anderson Dawkins MD 10/07/2011 Office visit Brannon Manuel DO 04/27/2011 Office visit Brannon Manuel DO 04/16/2011 Office visit Brannon Manuel DO 12/18/2010 Office visit Brannon Manuel DO 11/17/2010 Office visit Brannon Manuel DO 10/08/2010 Office visit Brannon Manuel DO 08/18/2010 Office visit Regina Mcnally SOFTWARE DEVELOPER CONSULTANT 02/03/2010 Office visit Brannon Manuel DO 12/02/2009 Office visit Brannon Manuel DO 06/27/2009 Office visit Brannon Simpsonte DO
--- OUTSIDE RECORDS SUMMARY | 2018-10-25 09:29 | XMS REPORT ---
Author Author Lakia Reina [facility] Address [address] [place], [place] [id number] Care Team Providers Care Ramp Agent Name Role Phone Lakia Reina PCP Brannon [...] 2 times per day for 7 days [place] Thyroid 120 mg oral tablet 12/14/2012 12/09/2013 [...] HC BMI BSA BMI Percentile O2 Sat(%) 10/28/2017 6:22:00 PM 138 mmHg 88 mmHg [...] Reviewed 12/13/2011 12:00 AM Kenalog per 10Mg Im-[facility]#[address]-19(Man) Reviewed 12/23/2011 12:00 AM DRAIN/INJ JOINT/BURSA W/O US Reviewed 12/23/2011 12:00 AM Kenalog 40 Mg Im-[facility]#8357-3435-97 Reviewed 11/19/2016 12:00 AM X-RAY EXAM OF HAND Reviewed 01/19/2017 12:00 AM COMPLETE CBC W/AUTO DIFF WBC Reviewed 01/19/2017 12:00 AM COMPREHEN METABOLIC PANEL Reviewed 01/19/2017 12:00 AM GLYCOSYLATED HEMOGLOBIN TEST Reviewed 05/25/2012 12:00 AM INJ TRIGGER POINT 1/2 MUSCL Reviewed 05/25/2012 12:00 AM Kenalog, Per [address] [facility]#9372-1565-27 Reviewed 06/14/2012 12:00 AM DRAIN/INJ JOINT/BURSA W/O US Reviewed 06/14/2012 12:00 AM Kenalog, Per [address] [facility]#4041-7034-95 Reviewed 05/09/2017 12:00 AM MAMMOGRAPHY SCREENING, DIGITAL Reviewed 07/11/2012 12:00 AM THER/PROPH/DIAG INJ SC/IM Reviewed 07/11/2012 12:00 AM Decadron [address] [facility]#[id number] (Manuel) Reviewed 07/11/2012 12:00 AM Depo-Medrol [address] [facility]#[id number]-Wjezlksl Reviewed 08/21/2012 12:00 AM ASSAY CARBOXYHB QUANT Reviewed 09/01/2017 12:00 AM RADIOLOGIC EXAMINATION KNEE 1/2 VIEWS Reviewed 09/18/2012 12:00 AM DRAIN/INJ JOINT/BURSA W/O US Reviewed 09/18/2012 12:00 AM Kenalog, Per [address] [facility]#5821-2330-42 Reviewed 10/25/2017 12:00 AM RADIOLOGIC EXAMINATION KNEE 3 VIEWS Reviewed 10/13/2012 12:00 AM COMPREHEN METABOLIC PANEL Reviewed 10/13/2012 12:00 AM LIPID PANEL Reviewed 10/13/2012 12:00 AM GLYCOSYLATED HEMOGLOBIN TEST Reviewed 10/13/2012 12:00 AM MICROALBUMIN SEMIQUANT Reviewed 04/15/2010 12:00 AM MAMMOGRAM SCREENING Reviewed 12/06/2012 12:00 AM DRAIN/INJ JOINT/BURSA W/O US Reviewed 12/06/2012 12:00 AM Kenalog, Per [address] [facility]#2230-7740-42 Reviewed 12/22/2012 12:00 AM TOTAL CORTISOL Reviewed 04/26/2013 12:00 AM DRAIN/INJ JOINT/BURSA W/O US Reviewed 04/26/2013 12:00 AM Kenalog, Per 10 Mg [facility]#9650-4210-71 Reviewed 05/10/2013 12:00 AM DRAIN/INJ JOINT/BURSA W/O US Reviewed 05/10/2013 12:00 AM Kenalog, Per 10 Mg [facility]#7920-2052-84 Reviewed 05/10/2013 12:00 AM DRAIN/INJ JOINT/BURSA W/O US Reviewed 05/10/2013 12:00 AM Kenalog, Per [address] [facility]#5669-6764-95 Reviewed 05/28/2013 12:00 AM MAMMOGRAM SCREENING Reviewed [...] AM Kenalog, Per [address] [facility]#8688-3668-84 Reviewed 04/05/2014 12:00 AM COMPLETE CBC W/AUTO [...] 2017 6:26PM Fever Oct 28 2017 6:26PM Payers Insurance Name Company Name Plan Name Plan Number Policy Number Policy Group Number Start Date Gpa Gpa [id number] Saturday, 2015 [employer] [place] [id number] Saturday, 2009 [employer] [place] [id number] Wednesday, 2009 History of Encounters Visit Date Visit Type Provider 10/28/2017 Office visit Lakia Reina WASHING MACHINE REPAIRER 10/25/2017 Office visit Regina Mcnally WASHING MACHINE REPAIRER 10/05/2017 Office visit Regina Mcnally WASHING MACHINE REPAIRER 09/01/2017 Office visit Brannon Jackson DO 06/29/2017 Office visit Karyna Gilbert WASHING MACHINE REPAIRER 06/18/2017 Office visit Karyna Gilbert WASHING MACHINE REPAIRER 05/09/2017 Office visit Brannon Jackson DO 03/08/2017 Office visit Brannon Jackson DO 01/25/2017 Office visit Brannon Jackson DO 01/19/2017 Office visit Regina Mcnally WASHING MACHINE REPAIRER 01/04/2017 Procedures Reagan Lehman DO 12/24/2016 Office visit Brannon Jackson DO 12/23/2016 Surgery Reagan Lehman DO 12/14/2016 Office visit Reagan Lehman DO 11/25/2016 Office visit Brannon Jackson DO 11/19/2016 Office visit Sandra Milton WASHING MACHINE REPAIRER 11/02/2016 Office visit Lakia Reina WASHING MACHINE REPAIRER 09/09/2016 Office visit Brannon Jackson DO 05/18/2016 [...] Manuel DO 07/03/2014 Office visit Rob Ruiz WASHING MACHINE REPAIRER 06/11/2014 Office visit Cass BRAY 04/29/2014 Office visit Cass BRAY 04/29/2014 Office visit Brannon Manuel DO 04/05/2014 Office visit Harjinder Paiz PA-C 02/25/2014 Office visit Cass BRAY 01/02/2014 Office visit Cass BRAY 12/18/2013 Office visit Cass BRAY 09/13/2013 Office visit Brannon Jackson DO 08/27/2013 Office visit Regina Mcnally WASHING MACHINE REPAIRER 08/17/2013 Office visit Ray Tripathi APRN 05/21/2013 Office visit Brannon Jackson DO 05/10/2013 Office visit Anirudh Conway MD 04/26/2013 Office visit Anirudh Conway MD 12/22/2012 Office visit Brannon Jackson DO 12/14/2012 [facility] Sandra Ca MD 12/12/2012 Office visit Brannon Jackson DO 12/12/2012 [facility] Sandra Ca MD 12/06/2012 Office visit Anirudh Conway MD 11/24/2012 Office visit Regina Mcnally WASHING MACHINE REPAIRER 10/12/2012 [facility] Anirudh Conway MD 10/10/2012 Office visit Brannon Jackson DO 09/18/2012 Office visit Anirudh Conway MD 09/01/2012 Office visit Brannon Jackson DO 08/21/2012 Office visit Brannon Jackson DO 08/01/2012 Office visit Brannon Jackson DO 07/11/2012 Office visit Regina Mcnally WASHING MACHINE REPAIRER 06/14/2012 Office visit Anirudh Conway MD 05/25/2012 Office visit Anirudh Conway MD 05/04/2012 Office visit Brannon Jackson DO 12/23/2011 Office visit Anirudh Conway MD 12/16/2011 Office visit Brannon Jackson DO 12/06/2011 Office visit Anirudh Conway MD 11/11/2011 Office visit Brannon Jackson DO 10/28/2011 Office visit Brannon Jackson DO 10/22/2011 [facility] Valery Cerna MD 10/21/2011 [facility] Valery Cerna MD 10/19/2011 Office visit Brannon Jackson DO 10/19/2011 [facility] Anderson Dawkins MD 10/07/2011 Office visit Brannon Jackson DO 04/27/2011 Office visit Brannon Jackson DO 04/16/2011 Office visit Brannon Jackson DO 12/18/2010 Office visit Brannon Jackson DO 11/17/2010 Office visit Brannon Jackson DO 10/08/2010 Office visit Brannon Jackson DO 08/18/2010 Office visit Regina Mcnally WASHING MACHINE REPAIRER 02/03/2010 Office visit Brannon Jackson DO 12/02/2009 Office visit Brannon Manuel DO 06/27/2009 Office visit Brannon Jackson DO
[2018-10-25] MEDS ORDERED: oxyCODONE/APAP 5/325MG (PERCOCET 5) TABLET PO PRN (09:30)
--- OUTSIDE RECORDS SUMMARY | 2018-10-25 09:31 | XMS REPORT ---
Author Author Lakia Reina Organization [facility] Address [address] [place], [place] [id number] Care Team Providers Care Chef'S Assistant Name Role Phone Lakia Reina PCP Brannon Jackson PreferredProvider Unavailable Allergies and Adverse [...] tablet by oral route every other day amoxicillin 500 mg oral capsule 11/02/2016 11/12/2016 take 2 capsules (1,000 mg ) by oral route every 12 hours x 10 days Name Start Date Expiration Date SIG [...] 2 times per day for 7 days [place] Thyroid 120 mg oral tablet 12/14/2012 12/09/2013 [...] HC BMI BSA BMI Percentile O2 Sat(%) 11/02/2016 5:12:00 PM 188 mmHg 118 mmHg [...] Reviewed 12/13/2011 12:00 AM Kenalog per 10Mg Im-[facility]#[address]-84(Man) Reviewed 12/23/2011 12:00 AM DRAIN/INJ JOINT/BURSA W/O US Reviewed 12/23/2011 12:00 AM Kenalog 40 Mg Im-[facility]#8258-8435-46 Reviewed 05/25/2012 12:00 AM INJ TRIGGER POINT 1/2 MUSCL Reviewed 05/25/2012 12:00 AM Kenalog, Per 10 Mg [facility]#7929-0683-38 Reviewed 06/14/2012 12:00 AM DRAIN/INJ JOINT/BURSA W/O US Reviewed 06/14/2012 12:00 AM Kenalog, Per 10 Mg [facility]#6863-5988-87 Reviewed 07/11/2012 12:00 AM THER/PROPH/DIAG INJ SC/IM Reviewed 07/11/2012 12:00 AM Decadron 1 mg [facility]#[id number] (Manuel) Reviewed 07/11/2012 12:00 AM Depo-Medrol 80 mg [facility]#[id number]-Lundauku Reviewed 08/21/2012 12:00 AM ASSAY CARBOXYHB QUANT Reviewed 09/18/2012 12:00 AM DRAIN/INJ JOINT/BURSA W/O US Reviewed 09/18/2012 12:00 AM Kenalog, Per 10 Mg [facility]#5981-6433-46 Reviewed 10/13/2012 12:00 AM COMPREHEN METABOLIC PANEL Reviewed 10/13/2012 12:00 AM LIPID PANEL Reviewed 10/13/2012 12:00 AM GLYCOSYLATED HEMOGLOBIN TEST Reviewed 10/13/2012 12:00 AM MICROALBUMIN SEMIQUANT Reviewed 04/15/2010 12:00 AM MAMMOGRAM SCREENING Reviewed 12/06/2012 12:00 AM DRAIN/INJ JOINT/BURSA W/O US Reviewed 12/06/2012 12:00 AM Kenalog, Per 10 Mg [facility]#1288-1588-19 Reviewed 12/22/2012 12:00 AM TOTAL CORTISOL Reviewed 04/26/2013 12:00 AM DRAIN/INJ JOINT/BURSA W/O US Reviewed 04/26/2013 12:00 AM Kenalog, Per 10 Mg [facility]#5416-7897-18 Reviewed 05/10/2013 12:00 AM DRAIN/INJ JOINT/BURSA W/O US Reviewed 05/10/2013 12:00 AM Kenalog, Per 10 Mg [facility]#8697-3420-98 Reviewed 05/10/2013 12:00 AM DRAIN/INJ JOINT/BURSA W/O US Reviewed 05/10/2013 12:00 AM Kenalog, Per 10 Mg [facility]#9204-4145-35 Reviewed 05/28/2013 12:00 AM MAMMOGRAM SCREENING Reviewed [...] 03/05/2014 12:00 AM Kenalog, Per 10 Mg [facility]#1154-1865-64 Reviewed 04/05/2014 12:00 AM COMPLETE CBC W/AUTO [...] 5:15PM Acute Pharyngitis Nov 02 2016 5:15PM Payers Insurance Name Company Name Plan Name Plan Number Policy Number Policy Group Number Start Date Gpa Gpa [id number] Saturday, 2015 [employer] [place] [id number] Saturday, 2009 [employer] [place] [id number] Wednesday, 2009 History of Encounters Visit Date Visit Type Provider 11/02/2016 Office visit Lakia Reina APRN 09/09/2016 [...] Manuel DO 12/12/2014 Office visit Cass Arellano INTERNAL COMBUSTION ENGINEER 10/29/2014 Office visit Cass ARCINIEGAP 10/02/2014 Office visit Cass ARCINIEGAP 09/20/2014 Office visit Brannon Jackson DO 09/05/2014 Office visit Cass Arellano INTERNAL COMBUSTION ENGINEER 07/29/2014 Office visit Cass ARCINIEGAP 07/18/2014 Office visit Brannon Jackson DO 07/03/2014 Office visit Rob Ruiz DECK MOLDER 06/11/2014 Office visit Cass ARCINIEGAP 04/29/2014 Office visit Cass ARCINIEGAP 04/29/2014 Office visit Brannon Jackson DO 04/05/2014 Office visit Harjinder Paiz PA-C 02/25/2014 Office visit Cass ARCINIEGAP 01/02/2014 Office visit Cass ARCINIEGAP 12/18/2013 Office visit Cass ARCINIEGAP 09/13/2013 Office visit Brannon Jackson DO 08/27/2013 Office visit Regina Mcnally DECK MOLDER 08/17/2013 Office visit Ray Tripathi DECK MOLDER 05/21/2013 Office visit Brannon Jackson DO 05/10/2013 Office visit Anirudh Conway MD 04/26/2013 Office visit Anirudh Conway MD 12/22/2012 Office visit Brannon Jackson DO 12/14/2012 [facility] Sandra Ca MD 12/12/2012 Office visit Brannon Jackson DO 12/12/2012 [facility] Sandra Ca MD 12/06/2012 Office visit Anirudh oCnway MD 11/24/2012 Office visit Regina Mcnally DECK MOLDER 10/12/2012 [facility] Anirudh Conway MD 10/10/2012 Office visit Brannon Jackson DO 09/18/2012 Office visit Anirudh Conway MD 09/01/2012 Office visit Brannon Jackson DO 08/21/2012 Office visit Brannon Jackson DO 08/01/2012 Office visit Brannon Jackson DO 07/11/2012 Office visit Regina Mcnally DECK MOLDER 06/14/2012 Office visit Anirudh Conway MD 05/25/2012 Office visit Anirudh Conway MD 05/04/2012 Office visit Brannon Jackson DO 12/23/2011 Office visit Anirudh Conway MD 12/16/2011 Office visit Brannon Jackson DO 12/06/2011 Office visit Anirudh Conway MD 11/11/2011 Office visit Brannon Jackson DO 10/28/2011 Office visit Brannon Jackson DO 10/22/2011 [facility] Valery Cerna MD 10/21/2011 [facility] Valery Cerna MD 10/19/2011 Office visit Brannon Jackson DO 10/19/2011 [facility] Anderson Dawkins MD 10/07/2011 Office visit Brannon [...]
--- OUTSIDE RECORDS SUMMARY | 2018-10-25 09:33 | XMS REPORT ---
Author Author Brannon Jackson [facility] Address [address] [place], [place] [address] Care Team Providers Care Electronics Technology Instructor Name Role Phone Brannon Jackson PCP Unavailable [...] route 2 times per day with food Name Start Date Expiration Date SIG Comments [...] 2 times per day for 7 days [place] Thyroid 120 mg oral tablet 12/14/2012 12/09/2013 [...] Kenalog per 10Mg Im-[facility]#[address]-18(Man) Reviewed 12/23/2011 12:00 AM DRAIN/INJ JOINT/BURSA W/O US Reviewed 12/23/2011 12:00 AM Kenalog 40 Mg Im-[facility]#9516-4728-56 Reviewed 11/19/2016 12:00 AM X-RAY EXAM OF HAND Reviewed 05/25/2012 12:00 AM INJ TRIGGER POINT 1/2 MUSCL Reviewed 05/25/2012 12:00 AM Kenalog, Per 10 Mg [facility]#1844-6121-00 Reviewed 06/14/2012 12:00 AM DRAIN/INJ JOINT/BURSA W/O US Reviewed 06/14/2012 12:00 AM Kenalog, Per 10 Mg [facility]#4781-9146-87 Reviewed 07/11/2012 12:00 AM THER/PROPH/DIAG INJ SC/IM Reviewed 07/11/2012 12:00 AM Decadron 1 mg [facility]#[id number] (Manuel) Reviewed 07/11/2012 12:00 AM Depo-Medrol 80 mg [facility]#[id number]-Alqhxwep Reviewed 08/21/2012 12:00 AM ASSAY CARBOXYHB QUANT Reviewed 09/18/2012 12:00 AM DRAIN/INJ JOINT/BURSA W/O US Reviewed 09/18/2012 12:00 AM Kenalog, Per 10 Mg [facility]#4688-5796-89 Reviewed 10/13/2012 12:00 AM COMPREHEN METABOLIC PANEL Reviewed 10/13/2012 12:00 AM LIPID PANEL Reviewed 10/13/2012 12:00 AM GLYCOSYLATED HEMOGLOBIN TEST Reviewed 10/13/2012 12:00 AM MICROALBUMIN SEMIQUANT Reviewed 04/15/2010 12:00 AM MAMMOGRAM SCREENING Reviewed 12/06/2012 12:00 AM DRAIN/INJ JOINT/BURSA W/O US Reviewed 12/06/2012 12:00 AM Kenalog, Per 10 Mg [facility]#6321-3668-58 Reviewed 12/22/2012 12:00 AM TOTAL CORTISOL Reviewed 04/26/2013 12:00 AM DRAIN/INJ JOINT/BURSA W/O US Reviewed 04/26/2013 12:00 AM Kenalog, Per 10 Mg [facility]#0227-8046-69 Reviewed 05/10/2013 12:00 AM DRAIN/INJ JOINT/BURSA W/O US Reviewed 05/10/2013 12:00 AM Kenalog, Per 10 Mg [facility]#2022-3333-91 Reviewed 05/10/2013 12:00 AM DRAIN/INJ JOINT/BURSA W/O US Reviewed 05/10/2013 12:00 AM Kenalog, Per 10 Mg [facility]#0661-1441-98 Reviewed 05/28/2013 12:00 AM MAMMOGRAM SCREENING Reviewed [...] 03/05/2014 12:00 AM Kenalog, Per 10 Mg [facility]#7890-5978-32 Reviewed 04/05/2014 12:00 AM COMPLETE CBC W/AUTO [...] 06 2011 4:20PM Pain in joint; Knee Dec 06 2011 4:20PM Fibromyalgia Dec 06 2011 4:20PM Lumbago Dec 06 2011 4:20PM [...] 12:09PM Dysuria Feb 2014 12:09PM Gastroesophageal Reflux Dec 17 2014 [...] Number Policy Group Number Start Date [facility] Gpa [id number] Saturday, 2015 [facility] [id number] Saturday, 2009 [facility] [id number] Wednesday, 2009 History of Encounters Visit Date Visit Type Provider 11/25/2016 Office visit Brannon Jackson DO 11/19/2016 Office visit Sandra Milton APRN 11/02/2016 Office visit Lakia Reina RETURNER 09/09/2016 Office visit Brannon Jcakson DO 05/18/2016 Office visit Brannon Jackson DO [...] Jackson DO 08/27/2013 Office visit Regina Mcnally RETURNER 08/17/2013 Office visit Ray KirbyMonse Tripathi RETURNER 05/21/2013 Office visit Brannon Jackson DO 05/10/2013 Office visit Anirudh Conway MD 04/26/2013 Office visit Anirudh Conway MD 12/22/2012 Office visit Brannon Jackson DO 12/14/2012 [facility] Sandra Ca MD 12/12/2012 Office visit Brannon Jackson DO 12/12/2012 [facility] Sandra Ca MD 12/06/2012 Office visit Anirudh Conway MD 11/24/2012 Office visit Regina Mcnally RETURNER 10/12/2012 [facility] Anirudh Conway MD 10/10/2012 Office visit Brannon Jackson DO 09/18/2012 Office visit Anirudh Conway MD 09/01/2012 Office visit Brannon Jackson DO 08/21/2012 Office visit Brannon Jackson DO 08/01/2012 Office visit Brannon Jackson DO 07/11/2012 Office visit Regina Mcnally RETURNER 06/14/2012 Office visit Anirudh Conway MD 05/25/2012 Office visit Anirudh Conway MD 05/04/2012 Office visit Brannon Jackson DO 12/23/2011 Office visit Anirudh Conway MD 12/16/2011 Office visit Brannon Jackson DO 12/06/2011 Office visit Anirudh Conway MD 11/11/2011 Office visit Brannon Jackson DO 10/28/2011 Office visit Brannon Manuel DO 10/22/2011 [facility] Valery Cerna MD 10/21/2011 [facility] Valery Cerna MD 10/19/2011 Office visit Brannon Manuel DO 10/19/2011 [facility] Anderson Dawkins MD 10/07/2011 [...]
--- OUTSIDE RECORDS SUMMARY | 2018-10-25 09:35 | XMS REPORT ---
Author Author Brannon Jackson [facility] Address [address] [place], [place] [address] Care Team Providers Care Bleach Tester Name Role Phone Brannon Jackson PCP Unavailable [...] once daily amlodipine 5 mg oral tablet 02/05/2016 01/30/2017 take 1 tablet (5 mg) by oral route once daily for 90 days amitriptyline 10 mg oral tablet 02/05/2016 01/30/2017 [...] 90 days hydrocodone-acetaminophen 10-325 mg oral tablet 03/30/2016 04/29/2016 take 1 tablet by oral route every 6 hours for 30 days alprazolam 0.5 mg oral tablet 03/30/2016 04/29/2016 TAKE ONE TABLET BY MOUTH TWICE DAILY NEEDED Prozac 20 mg oral capsule 04/16/2016 05/16/2016 take 1 capsule (20 mg) by oral route once daily for 30 days fluconazole 100 mg oral tablet 04/22/2016 take 1 tablet by oral route every [...] 2 times per day for 7 days [place] Thyroid 120 mg oral tablet 12/14/2012 12/09/2013 [...] Reviewed 12/13/2011 12:00 AM Kenalog per 10Mg Im-Nd#[address]-59(Man) Reviewed 12/23/2011 12:00 AM DRAIN/INJ JOINT/BURSA W/O US Reviewed 12/23/2011 12:00 AM Kenalog 40 Mg Im-Ndc#3143-8060-12 Reviewed 05/25/2012 12:00 AM INJ TRIGGER POINT 1/2 MUSCL Reviewed 05/25/2012 12:00 AM Kenalog, Per 10 Mg ND#8094-7083-35 Reviewed 06/14/2012 12:00 AM DRAIN/INJ JOINT/BURSA W/O US Reviewed 06/14/2012 12:00 AM Kenalog, Per 10 Mg ND#7282-7725-00 Reviewed 07/11/2012 12:00 AM THER/PROPH/DIAG INJ SC/IM Reviewed 07/11/2012 12:00 AM Decadron 1 mg [facility]#[id number] (Manuel) Reviewed 07/11/2012 12:00 AM Depo-Medrol 80 mg ND#[id number]-Cywbpnjx Reviewed 08/21/2012 12:00 AM ASSAY CARBOXYHB QUANT Reviewed 09/18/2012 12:00 AM DRAIN/INJ JOINT/BURSA W/O US Reviewed 09/18/2012 12:00 AM Kenalog, Per 10 Mg [facility]#1374-0193-37 Reviewed 10/13/2012 12:00 AM COMPREHEN METABOLIC PANEL Reviewed 10/13/2012 12:00 AM LIPID PANEL Reviewed 10/13/2012 12:00 AM GLYCOSYLATED HEMOGLOBIN TEST Reviewed 10/13/2012 12:00 AM MICROALBUMIN SEMIQUANT Reviewed 04/15/2010 12:00 AM MAMMOGRAM SCREENING Reviewed 12/06/2012 12:00 AM DRAIN/INJ JOINT/BURSA W/O US Reviewed 12/06/2012 12:00 AM Kenalog, Per 10 Mg [facility]#9040-7310-87 Reviewed 12/22/2012 12:00 AM TOTAL CORTISOL Reviewed 04/26/2013 12:00 AM DRAIN/INJ JOINT/BURSA W/O US Reviewed 04/26/2013 12:00 AM Kenalog, Per 10 Mg [facility]#9758-5361-35 Reviewed 05/10/2013 12:00 AM DRAIN/INJ JOINT/BURSA W/O US Reviewed 05/10/2013 12:00 AM Kenalog, Per 10 Mg ND#7377-4713-64 Reviewed 05/10/2013 12:00 AM DRAIN/INJ JOINT/BURSA W/O US Reviewed 05/10/2013 12:00 AM Kenalog, Per 10 Mg [facility]#1493-2774-55 Reviewed 05/28/2013 12:00 AM MAMMOGRAM SCREENING Reviewed [...] 03/05/2014 12:00 AM Kenalog, Per 10 Mg [facility]#1967-8896-86 Reviewed 04/05/2014 12:00 AM COMPLETE CBC W/AUTO [...] BILI 0.90 mg/dLCALCIUM 9.50 mg/dLeGFR >60 mL/min/1.73 [id number] 18.0 U/L 01/02/2014 10:02 AM GLUCOSE 134.0 [...] Mixed Dec 18 2010 9:00AM Depressive Disorder Feb 2010 9:00AM Hypertension Feb 2010 9:00AM Osteoarthritis,Shoulder Feb 2010 9:00AM Pain [...] 3:26PM Otitis Externa, Acute - Right Feb 16 2011 3:26PM Pain in joint; Knee Feb [...] Policy Number Policy Group Number Start Date [facility] Gpa [id number] Saturday, 2015 [employer] [place] [id number] Saturday, 2009 [employer] [facility] [id number] Wednesday, 2009 History of Encounters Visit Date Visit Type Provider 02/05/2016 Office visit Brannon Tidwellhite DO 12/09/2015 [...] visit Cass BRAY 07/18/2014 Office visit Brannon Tidwellhite DO 07/03/2014 Office visit Rob Ruiz APRN 06/11/2014 Office visit Cass BRAY 04/29/2014 Office visit Cass BRAY 04/29/2014 Office visit Brannon Jackson DO 04/05/2014 Office visit Harjinder Paiz PA-C 02/25/2014 Office visit Cass BRAY 01/02/2014 Office visit Cass BRAY 12/18/2013 Office visit Cass BRAY 09/13/2013 Office visit Brannon Jackson DO 08/27/2013 Office visit Regina Mcnally PARALEGAL 08/17/2013 Office visit Ray Tripathi PARALEGAL 05/21/2013 Office visit Brannon Jackson DO 05/10/2013 Office visit Anirudh Conway MD 04/26/2013 Office visit Anirudh Conway MD 12/22/2012 Office visit Brannon Jackson DO 12/14/2012 [facility] Sandra Ca MD 12/12/2012 Office visit Brannon Jackson DO 12/12/2012 [facility] Sandra Ca MD 12/06/2012 Office visit Anirudh Conway MD 11/24/2012 Office visit Regina Mcnally PARALEGAL 10/12/2012 [facility] Anirudh Conway MD 10/10/2012 Office visit Brannon Jackson DO 09/18/2012 Office visit Anirudh Conway MD 09/01/2012 Office visit Brannon Jackson DO 08/21/2012 Office visit Brannon Jackson DO 08/01/2012 Office visit Brannon Jackson DO 07/11/2012 Office visit Regina Mcnally PARALEGAL 06/14/2012 Office visit Anirudh Conway MD 05/25/2012 Office visit Anirudh Conway MD 05/04/2012 Office visit Brannon Jackson DO 12/23/2011 Office visit Anirudh Conway MD 12/16/2011 Office visit Brannon Jackson DO 12/06/2011 Office visit Anirudh Conway MD 11/11/2011 Office visit Brannon Jackson DO 10/28/2011 Office visit Brannon Jackson DO 10/22/2011 [facility] Valery Cerna MD 10/21/2011 [facility] Valery Cerna MD 10/19/2011 Office visit Brannon Jackson DO 10/19/2011 [facility] Anderson Dawkins MD 10/07/2011 Office visit Brannon Manuel DO 04/27/2011 Office visit Brannon Manuel DO 04/16/2011 Office visit Brannon Jackson DO 12/18/2010 Office visit Brannon Jackson DO 11/17/2010 Office visit Brannon Jackson DO 10/08/2010 Office visit Brannon Jackson DO 08/18/2010 Office visit Regina Mcnally PARALEGAL 02/03/2010 Office visit Brannon Jackson DO 12/02/2009 Office visit Brannon Jackson DO 06/27/2009 Office visit Brannon Jackson DO
--- OUTSIDE RECORDS SUMMARY | 2018-10-25 09:37 | XMS REPORT ---
Author Author Brannon Jackson [facility] Address [address] [place], [place] [id number] Care Team Providers Care Health Care Marketing Manager Name Role Phone Brannon Jackson PCP [...] 3 mo supply for mail order through [employer] amitriptyline oral tablet 10 mg 08/29/2014 11/22/2015 [...] 2 times per day for 7 days [place] Thyroid oral tablet 120 mg 12/14/2012 12/09/2013 [...] BILI 0.90 mg/dLCALCIUM 9.50 mg/dLeGFR >60 mL/min/1.73 [id number] 18.0 U/L 01/02/2014 10:02 AM GLUCOSE 134.0 [...] Osteoarthritis, Left Hip Apr 09 2015 11:42AM Payers Insurance Name Company Name Plan Name Plan Number Policy Number Policy Group Number Start Date [employer] [facility] [id number] Wednesday, 2009 [employer] [facility] [id number] Saturday, 2009 History of Encounters Visit Date [...] 12/12/2012 Office visit Brannon Simpsonte DO 12/12/2012 [facility] Sandra Ca MD 12/06/2012 Office visit Anirudh Conway MD 11/24/2012 Office visit Regina Mcnally [employer]BERRY GROWER 10/12/2012 [facility] Anirudh Conway MD 10/10/2012 Office visit Brannon Tidwellhite DO 09/18/2012 Office visit Anirudh Conway MD 09/01/2012 Office visit Brannon Manuel DO 08/21/2012 Office visit Brannon Manuel DO 08/01/2012 Office visit Brannon Manuel DO 07/11/2012 Office visit Regina Mcnally BLUEBERRY GROWER 06/14/2012 Office visit Anirudh Conway MD 05/25/2012 Office visit Anirudh Conway MD 05/04/2012 Office visit Brannon Jackson DO 12/23/2011 Office visit Anirudh Conway MD 12/16/2011 Office visit Brannon Jackson DO 12/06/2011 Office visit Anirudh Conway MD 11/11/2011 Office visit Brannon Manuel DO 10/28/2011 Office visit Brannon Manuel DO 10/22/2011 [facility] Valery Cerna MD 10/21/2011 [facility] Valery Cerna MD 10/19/2011 Office visit Brannon Manuel DO 10/19/2011 [facility] Anderson Dawkins MD 10/07/2011 Office visit Brannon Manuel DO 04/27/2011 Office visit Brannon Manuel DO 04/16/2011 Office visit Brannon Manuel DO 12/18/2010 Office visit Brannon Manuel DO 11/17/2010 Office visit Brannon Manuel DO 10/08/2010 Office visit Brannon Manuel DO 08/18/2010 Office visit Regina Mcnally BLUEBERRY GROWER 02/03/2010 Office visit Brannon Manuel DO 12/02/2009 Office visit Brannon Manuel DO 06/27/2009 Office visit Brannon Manuel DO
--- OUTSIDE RECORDS SUMMARY | 2018-10-25 09:38 | XMS REPORT ---
Author Author Cass Arellano [facility] Address [address] [place], [place] [id number] Care Team Providers Care Regulatory Compliance Specialist Name Role Phone Cass Arellano PCP Allergies [...] 3 mo supply for mail order through [employer] amitriptyline 10 mg oral tablet 08/29/2014 11/22/2015 [...] 2 times per day for 7 days [place] Thyroid 120 mg oral tablet 12/14/2012 12/09/2013 [...] ONE TABLET BY MOUTH TWICE DAILY NEEDED Bactrim DS 800-160 mg oral tablet 08/01/2015 [...] HC BMI BSA BMI Percentile O2 Sat(%) 08/20/2015 1:03:00 PM 122 mmHg 72 mmHg [...] per 10Mg Im-[facility]#[address]-78(Man) Reviewed 12/23/2011 12:00 AM DRAIN/INJ JOINT/BURSA W/O US Reviewed 12/23/2011 12:00 AM Kenalog 40 Mg Im-[facility]#4769-7719-14 Reviewed 05/25/2012 12:00 AM INJ TRIGGER POINT 1/2 MUSCL Reviewed 05/25/2012 12:00 AM Kenalog, Per 10 Mg [facility]#1680-9391-04 Reviewed 06/14/2012 12:00 AM DRAIN/INJ JOINT/BURSA W/O US Reviewed 06/14/2012 12:00 AM Kenalog, Per 10 Mg [facility]#2162-3508-14 Reviewed 07/11/2012 12:00 AM THER/PROPH/DIAG INJ SC/IM Reviewed 07/11/2012 12:00 AM Decadron 1 mg [facility]#[id number] (Manuel) Reviewed 07/11/2012 12:00 AM Depo-Medrol 80 mg [facility]#[id number]-Rwswryaq Reviewed 08/21/2012 12:00 AM ASSAY CARBOXYHB QUANT Reviewed 09/18/2012 12:00 AM DRAIN/INJ JOINT/BURSA W/O US Reviewed 09/18/2012 12:00 AM Kenalog, Per 10 Mg [facility]#4028-0162-02 Reviewed 10/13/2012 12:00 AM COMPREHEN METABOLIC PANEL Reviewed 10/13/2012 12:00 AM LIPID PANEL Reviewed 10/13/2012 12:00 AM GLYCOSYLATED HEMOGLOBIN TEST Reviewed 10/13/2012 12:00 AM MICROALBUMIN SEMIQUANT Reviewed 04/15/2010 12:00 AM MAMMOGRAM SCREENING Reviewed 12/06/2012 12:00 AM DRAIN/INJ JOINT/BURSA W/O US Reviewed 12/06/2012 12:00 AM Kenalog, Per 10 Mg NDC#0983-1725-36 Reviewed 12/22/2012 12:00 AM TOTAL CORTISOL Reviewed 04/26/2013 12:00 AM DRAIN/INJ JOINT/BURSA W/O US Reviewed 04/26/2013 12:00 AM Kenalog, Per 10 Mg NDC#8372-9186-20 Reviewed 05/10/2013 12:00 AM DRAIN/INJ JOINT/BURSA W/O US Reviewed 05/10/2013 12:00 AM Kenalog, Per 10 Mg NDC#7436-8686-54 Reviewed 05/10/2013 12:00 AM DRAIN/INJ JOINT/BURSA W/O US Reviewed 05/10/2013 12:00 AM Kenalog, Per 10 Mg NDC#6260-7584-73 Reviewed 05/28/2013 12:00 AM MAMMOGRAM SCREENING Reviewed [...] 03/05/2014 12:00 AM Kenalog, Per 10 Mg NDC#6347-1237-04 Reviewed 04/05/2014 12:00 AM COMPLETE CBC W/AUTO [...] BILI 0.90 mg/dLCALCIUM 9.50 mg/dLeGFR >60 mL/min/1.73 [id number] 18.0 U/L 01/02/2014 10:02 AM GLUCOSE 134.0 [...] 18 2010 8:36AM Overactive bladder 12/18/2014 Dysuria Dec 9 2010 3:29PM Diabetes Mellitus, Type II Oct [...] Trochanteric Bursitis Feb 13 2011 9:26AM Insomnia 2011 3:26PM Dermatitis Feb 16 2012 3:26PM Otitis Externa, Acute - Right Dec [...] Hyperlipidemia, Mixed Feb 06 2013 9:38AM Bursitis Matias 27 2013 8:43AM Fibromyalgia Apr 26 2013 8:43AM [...] secondary hip dysplasia Aug 20 2015 1:11PM Payers Insurance Name Company Name Plan Name Plan Number Policy Number Policy Group Number Start Date [facility] [id number] Wednesday, 2009 [facility] [id number] Saturday, 2009 History of Encounters Visit Date Visit Type Provider 08/20/2015 Office visit Cass BRAY 08/01/2015 Office [...] 12/22/2012 Office visit Brannon Jackson DO 12/14/2012 [facility] Sandra Ca MD 12/12/2012 Office visit Brannon Jackson DO 12/12/2012 [facility] Sandra Ca MD 12/06/2012 Office visit Anirudh Conway MD 11/24/2012 Office visit Regina Mcnally APRN 10/12/2012 [facility] Anirudh Conway MD 10/10/2012 Office visit Brannon Jackson DO 09/18/2012 Office visit Anirudh Conway MD 09/01/2012 Office visit Brannon Simpsonte DO 08/21/2012 Office visit Brannon Jackson DO 08/01/2012 Office visit Brannon Simpsonte DO 07/11/2012 Office visit Regina Mcnally MANAGEMENT AND BUDGET ANALYST 06/14/2012 Office visit Anirudh Conway MD 05/25/2012 Office visit Anirudh Conway MD 05/04/2012 Office visit Brannon Jackson DO 12/23/2011 Office visit Anirudh Conway MD 12/16/2011 Office visit Brannon Jackson DO 12/06/2011 Office visit Anirudh Conway MD 11/11/2011 Office visit Barnnon Jackson DO 10/28/2011 Office visit Brannon Jackson DO 10/22/2011 [facility] Valery Cerna MD 10/21/2011 [facility] Valery Cerna MD 10/19/2011 Office visit Brannon Jackson DO 10/19/2011 [facility] Anderson Dawkins MD 10/07/2011 Office visit Brannon Manuel DO 04/27/2011 Office visit Barnnon Manuel DO 04/16/2011 Office visit Brannon Jackson DO 12/18/2010 Office visit Brannon Jackson DO 11/17/2010 Office visit Brannon Manuel DO 10/08/2010 Office visit Brannon Simpsonte DO 08/18/2010 Office visit Regina Mcnally MANAGEMENT AND BUDGET ANALYST 02/03/2010 Office visit Brannon Simpsonte DO 12/02/2009 Office visit Brannon Simpsonte DO 06/27/2009 Office visit Brannon Jackson DO
--- OUTSIDE RECORDS SUMMARY | 2018-10-25 09:40 | XMS REPORT ---
Author Author Cass Arellano [facility] Address [address] [place], [place] [address] Care Team Providers Care Industrial Technology Teacher Name Role Phone Cass Arellano PCP Allergies [...] times per day for 7 days [place] Thyroid 120 mg oral tablet 12/14/2012 12/09/2013 [...] Reviewed 12/13/2011 12:00 AM Kenalog per 10Mg Im-[facility]#[address]-59(Man) Reviewed 12/23/2011 12:00 AM DRAIN/INJ JOINT/BURSA W/O US Reviewed 12/23/2011 12:00 AM Kenalog 40 Mg Im-[facility]#6696-7165-41 Reviewed 05/25/2012 12:00 AM INJ TRIGGER POINT 1/2 MUSCL Reviewed 05/25/2012 12:00 AM Kenalog, Per [address] [facility]#4959-6002-76 Reviewed 06/14/2012 12:00 AM DRAIN/INJ JOINT/BURSA W/O US Reviewed 06/14/2012 12:00 AM Kenalog, Per [address] [facility]#7532-9909-41 Reviewed 07/11/2012 12:00 AM THER/PROPH/DIAG INJ SC/IM Reviewed 07/11/2012 12:00 AM Decadron [address] [facility]#[id number] (Manuel) Reviewed 07/11/2012 12:00 AM Depo-Medrol [address] [facility]#[id number]-Rbbfalyy Reviewed 08/21/2012 12:00 AM ASSAY CARBOXYHB QUANT Reviewed 09/18/2012 12:00 AM DRAIN/INJ JOINT/BURSA W/O US Reviewed 09/18/2012 12:00 AM Kenalog, Per [address] [facility]#1180-1924-34 Reviewed 10/13/2012 12:00 AM COMPREHEN METABOLIC PANEL Reviewed 10/13/2012 12:00 AM LIPID PANEL Reviewed 10/13/2012 12:00 AM GLYCOSYLATED HEMOGLOBIN TEST Reviewed 10/13/2012 12:00 AM MICROALBUMIN SEMIQUANT Reviewed 04/15/2010 12:00 AM MAMMOGRAM SCREENING Reviewed 12/06/2012 12:00 AM DRAIN/INJ JOINT/BURSA W/O US Reviewed 12/06/2012 12:00 AM Kenalog, Per 10 Mg N[facility]#0796-3515-47 Reviewed 12/22/2012 12:00 AM TOTAL CORTISOL Reviewed 04/26/2013 12:00 AM DRAIN/INJ JOINT/BURSA W/O US Reviewed 04/26/2013 12:00 AM Kenalog, Per 10 Mg N[facility]#6727-1306-67 Reviewed 05/10/2013 12:00 AM DRAIN/INJ JOINT/BURSA W/O US Reviewed 05/10/2013 12:00 AM Kenalog, Per 10 Mg N[facility]#3134-4094-22 Reviewed 05/10/2013 12:00 AM DRAIN/INJ JOINT/BURSA W/O US Reviewed 05/10/2013 12:00 AM Kenalog, Per 10 Mg N[facility]#3919-4944-82 Reviewed 05/28/2013 12:00 AM MAMMOGRAM SCREENING Reviewed [...] 03/05/2014 12:00 AM Kenalog, Per 10 Mg NDC#9236-0663-87 Reviewed 04/05/2014 12:00 AM COMPLETE CBC W/AUTO [...] BILI 0.90 mg/dLCALCIUM 9.50 mg/dLeGFR >60 mL/min/1.73 [id number] 18.0 U/L 01/02/2014 10:02 AM GLUCOSE 134.0 [...] 9:26AM Insomnia Dec 16 2011 3:26PM Dermatitis 2011 3:26PM Otitis Externa, Acute - Right [...] Group Number Start Date [employer] [place] [id number] Wednesday, 2009 [employer] [place] [id number] Saturday, 2009 History of Encounters Visit Date [...] visit Cass BRAY 04/29/2014 Office visit Cass BARY 04/29/2014 Office visit Brannon Jackson DO 04/05/2014 [...] 12/22/2012 Office visit Brannon Jackson DO 12/14/2012 [facility] Sandra Ca MD 12/12/2012 Office visit Brannon Jackson DO 12/12/2012 [facility] Sandra Ca MD 12/06/2012 Office visit Anirudh Conway MD 11/24/2012 Office visit Regina Mcnally ADOBE ARCHITECT 10/12/2012 [facility] Anirudh Conway MD 10/10/2012 Office visit Brannon Jackson DO 09/18/2012 Office visit Anirudh Conway MD 09/01/2012 Office visit Brannon Manuel DO 08/21/2012 Office visit Brannon Manuel DO 08/01/2012 Office visit Brannon Simpsonte DO 07/11/2012 Office visit Regina Mcnally ADOBE ARCHITECT 06/14/2012 Office visit Anirudh Conway MD 05/25/2012 Office visit Anirudh Conway MD 05/04/2012 Office visit Brannon Jackson DO 12/23/2011 Office visit Anirudh Conway MD 12/16/2011 Office visit Brannon Jackson DO 12/06/2011 Office visit Anirudh Conway MD 11/11/2011 Office visit Brannon Jackson DO 10/28/2011 Office visit Brannon Jackson DO 10/22/2011 [facility] Valery Cerna MD 10/21/2011 [facility] Valery Cerna MD 10/19/2011 Office visit Brannon Jacksno DO 10/19/2011 [facility] Anderson Dawkins MD 10/07/2011 Office visit Brannon Manuel DO 04/27/2011 Office visit Brannon Manuel DO 04/16/2011 Office visit Brannon Manuel DO 12/18/2010 Office visit Brannon Manuel DO 11/17/2010 Office visit Brannon Simpsonte DO 10/08/2010 Office visit Brannon Jackson DO 08/18/2010 Office visit Regina Mcnally ADOBE ARCHITECT 02/03/2010 Office visit Brannon Manuel DO 12/02/2009 Office visit Brannon Manuel DO 06/27/2009 Office visit Brannon Jackson DO
--- OUTSIDE RECORDS SUMMARY | 2018-10-25 09:43 | XMS REPORT ---
Author Author Brannon Jackson [facility] Address [address] [place], [place] [address] Care Team Providers Care Proof Technician Name Role Phone Brannon Jackson PCP Brannon [...] 2 times per day for [address] [place] Thyroid 120 mg oral tablet 12/14/2012 [...] Reviewed 12/13/2011 12:00 AM Kenalog per 10Mg Im-[facility]#[address]-02(Man) Reviewed 12/23/2011 12:00 AM DRAIN/INJ JOINT/BURSA W/O US Reviewed 12/23/2011 12:00 AM Kenalog 40 Mg Im-[facility]#3990-5048-07 Reviewed 11/19/2016 12:00 AM X-RAY EXAM OF HAND Reviewed 01/19/2017 12:00 AM COMPLETE CBC W/AUTO DIFF WBC Reviewed 01/19/2017 12:00 AM COMPREHEN METABOLIC PANEL Reviewed 01/19/2017 12:00 AM GLYCOSYLATED HEMOGLOBIN TEST Reviewed 05/25/2012 12:00 AM INJ TRIGGER POINT 1/2 MUSCL Reviewed 05/25/2012 12:00 AM Kenalog, Per 10 Mg ND#9649-0167-67 Reviewed 06/14/2012 12:00 AM DRAIN/INJ JOINT/BURSA W/O US Reviewed 06/14/2012 12:00 AM Kenalog, Per 10 Mg NDC#2889-1223-53 Reviewed 05/09/2017 12:00 AM MAMMOGRAPHY SCREENING, DIGITAL Reviewed 07/11/2012 12:00 AM THER/PROPH/DIAG INJ SC/IM Reviewed 07/11/2012 12:00 AM Decadron 1 mg NDC#[id number] (Manuel) Reviewed 07/11/2012 12:00 AM Depo-Medrol 80 mg [facility]#[id number]-Nvyaatup Reviewed 08/21/2012 12:00 AM ASSAY CARBOXYHB QUANT Reviewed 09/01/2017 12:00 AM RADIOLOGIC EXAMINATION KNEE 1/2 VIEWS Reviewed 09/18/2012 12:00 AM DRAIN/INJ JOINT/BURSA W/O US Reviewed 09/18/2012 12:00 AM Kenalog, Per 10 Mg [facility]#3005-9978-80 Reviewed 10/25/2017 12:00 AM RADIOLOGIC EXAMINATION KNEE [...] 12:00 AM Kenalog, Per 10 Mg [facility]#8894-7230-49 Reviewed 12/22/2012 12:00 AM TOTAL CORTISOL Reviewed 04/26/2013 12:00 AM DRAIN/INJ JOINT/BURSA W/O US Reviewed 04/26/2013 12:00 AM Kenalog, Per 10 Mg [facility]#4358-1458-29 Reviewed 05/10/2013 12:00 AM DRAIN/INJ JOINT/BURSA W/O US Reviewed 05/10/2013 12:00 AM Kenalog, Per 10 Mg [facility]#7738-5472-80 Reviewed 05/10/2013 12:00 AM DRAIN/INJ JOINT/BURSA W/O US Reviewed 05/10/2013 12:00 AM Kenalog, Per 10 Mg [facility]#8488-7537-41 Reviewed 05/28/2013 12:00 AM MAMMOGRAM SCREENING Reviewed [...] 12:00 AM Kenalog, Per 10 Mg [facility]#0221-9553-80 Reviewed 04/05/2014 12:00 AM COMPLETE CBC W/AUTO [...] in left knee Mar 28 2018 9:35AM Payers Insurance Name Company Name Plan Name Plan Number Policy Number Policy Group Number Start Date [facility] [place] Gpa [id number] Saturday, 2015 [employer] [place] [id number] Saturday, 2009 [employer] [place] [id number] Wednesday, 2009 History of Encounters Visit Date Visit Type Provider 03/28/2018 Office visit Brannon Jackson DO 12/02/2017 Office visit Brannon Jackson DO 11/11/2017 Office visit Brannon Jackson DO 11/09/2017 Office visit Harjinder Paiz PA-C 10/28/2017 Office visit Lakia Reina METAL MOCKUP MAKER 10/25/2017 Office visit Regina Mcnally METAL MOCKUP MAKER 10/05/2017 Office visit Regina Mcnally METAL MOCKUP MAKER 09/01/2017 Office visit Brannon Manuel DO 06/29/2017 Office visit Karyna Gilbert METAL MOCKUP MAKER 06/18/2017 Office visit Karyna Gilbert METAL MOCKUP MAKER 05/09/2017 Office visit Brannon Manuel DO 03/08/2017 Office visit Brannon Manuel DO 01/25/2017 Office visit Brannon Manuel DO 01/19/2017 Office visit Regina Mcnally METAL MOCKUP MAKER 01/04/2017 Procedures Reagan Guzmanuman DO 12/24/2016 Office visit Brannon Manuel DO 12/23/2016 Surgery Reagan Bouman DO 12/14/2016 Office visit Reagan Thomasuman DO 11/25/2016 Office visit Brannon Manuel DO 11/19/2016 Office visit Sandra Yoan METAL MOCKUP MAKER 11/02/2016 Office visit Lakia Reina METAL MOCKUP MAKER 09/09/2016 Office visit Brannon Manuel DO 05/18/2016 Office visit Brannon Jackson DO [...] visit Cass BRAY 02/25/2015 Office visit Cass ARCINIEGAP 02/05/2015 Nurse visit Cass ARCINIEGAP 12/17/2014 Hospital Dinesh Zhu MD 12/17/2014 Office visit Brannon Manuel DO 12/12/2014 Office visit Cass Arellano SUBSTANCE ABUSE RN 10/29/2014 Office visit Cass Arellano SUBSTANCE ABUSE RN 10/02/2014 Office visit Cass Arellano SUBSTANCE ABUSE RN 09/20/2014 Office visit Brannon Jackson DO 09/05/2014 Office visit Cass Arellano SUBSTANCE ABUSE RN 07/29/2014 Office visit Cass Arellano SUBSTANCE ABUSE RN 07/18/2014 Office visit Brannon Manuel DO 07/03/2014 Office visit Rob Ruiz METAL MOCKUP MAKER 06/11/2014 Office visit Cass Arellano SUBSTANCE ABUSE RN 04/29/2014 Office visit Cass Arellano SUBSTANCE ABUSE RN 04/29/2014 Office visit Brannon Jackson DO 04/05/2014 Office visit Harjidner Paiz PA-C 02/25/2014 Office visit Cass ARCINIEGAP 01/02/2014 Office visit Cass ARCINIEGAP 12/18/2013 Office visit Cass ARCINIEGAP 09/13/2013 Office visit Brannon Jackson DO 08/27/2013 Office visit Regina Mcnally METAL MOCKUP MAKER 08/17/2013 Office visit Ray Tripathi METAL MOCKUP MAKER 05/21/2013 Office visit Brannon Jackson DO 05/10/2013 Office visit Anirudh Conway MD 04/26/2013 Office visit Anirudh Conway MD 12/22/2012 Office visit Brannon Jackson DO 12/14/2012 [facility] Sandra Ca MD 12/12/2012 Office visit Brannon Jackson DO 12/12/2012 [facility] Sandra Ca MD 12/06/2012 Office visit Anirudh Conway MD 11/24/2012 Office visit Regina Mcnally METAL MOCKUP MAKER 10/12/2012 [facility] Anirudh Conway MD 10/10/2012 Office visit Brannon Jackson DO 09/18/2012 Office visit Anirudh Conway MD 09/01/2012 Office visit Brannon Jackson DO 08/21/2012 Office visit Brannon Jackson DO 08/01/2012 Office visit Brannon Jackson DO 07/11/2012 Office visit Regina Mcnally METAL MOCKUP MAKER 06/14/2012 Office visit Anirudh Conway MD [...] Brannon Jackson DO 04/16/2011 Office visit Brannon Jacskon DO 12/18/2010 Office visit Brannon Jackson DO 11/17/2010 Office visit Brannon Jackson DO 10/08/2010 Office visit Brannon Jackson DO 08/18/2010 Office visit Regina Mcnally METAL MOCKUP MAKER 02/03/2010 Office visit Brannon Jackson DO 12/02/2009 Office visit Brannon Jackson DO 06/27/2009 Office visit Brannon Jackson DO
--- OUTSIDE RECORDS SUMMARY | 2018-10-25 09:44 | XMS REPORT ---
Author Author Brannon Jackson [facility] Address [address] [place], [place] [id number] Care Team Providers Care Pug Mill Operator Helper Name Role Phone Brannon Jackson PCP Unavailable [...] 3 mo supply for mail order through [facility] [employer] amitriptyline oral tablet 10 mg 08/29/2014 11/22/2015 take 1 tablet by oral route once a day (at bedtime) for 90 days mail order Accu-Chek Comfort Curve Test miscellaneous strip 09/20/2014 Test glucose 2 times a day Dx: 250.00 Detrol LA oral capsule,extended release 24hr 4 mg 11/11/2014 11/06/2015 take 1 capsule (4 mg) by oral route once daily for 90 days alprazolam Oral tablet 0.5 mg 03/13/2015 [...] 2 times per day for 7 days [place] Thyroid oral tablet 120 mg 12/14/2012 12/09/2013 [...] BILI 0.90 mg/dLCALCIUM 9.50 mg/dLeGFR >60 mL/min/1.73 [id number] 18.0 U/L 01/02/2014 10:02 AM GLUCOSE 134.0 [...] Group Number Start Date [facility] [id number] Wednesday, 2009 [facility] [id number] Saturday, 2009 History of Encounters Visit Date [...] 12/12/2012 Office visit Brannon Simpsonte DO 12/12/2012 [facility] Sandra Ca MD 12/06/2012 Office visit Anirudh Conway MD 11/24/2012 Office visit Regina Mcnally AIR CONDITIONING SHEET METAL INSTALLER 10/12/2012 [facility] Anirudh Conway MD 10/10/2012 Office visit Brannon Tidwellhite DO 09/18/2012 Office visit Anirudh Conway MD 09/01/2012 Office visit Brannon Manuel DO 08/21/2012 Office visit Brannon Manuel DO 08/01/2012 Office visit Brannon Manuel DO 07/11/2012 Office visit Regina Mcnally AIR CONDITIONING SHEET METAL INSTALLER 06/14/2012 Office visit Anirudh Conway MD 05/25/2012 Office visit Anirudh Conway MD 05/04/2012 Office visit Brannon Jackson DO 12/23/2011 Office visit Anirudh Conway MD 12/16/2011 Office visit Brannon Jackson DO 12/06/2011 Office visit Anirudh Conway MD 11/11/2011 Office visit Brannon Manuel DO 10/28/2011 Office visit Brannon Manuel DO 10/22/2011 [facility] Valery Cerna MD 10/21/2011 [facility] Valery Cerna MD 10/19/2011 Office visit Brannon Manuel DO 10/19/2011 [facility] Anderson Dawkins MD 10/07/2011 Office visit Brannon Manuel DO 04/27/2011 Office visit Brannon Manuel DO 04/16/2011 Office visit Brannon Manuel DO 12/18/2010 Office visit Brannon Manuel DO 11/17/2010 Office visit Brannon Manuel DO 10/08/2010 Office visit Brannon Manuel DO 08/18/2010 Office visit Regina Mcnally AIR CONDITIONING SHEET METAL INSTALLER 02/03/2010 Office visit Brannon Manuel DO 12/02/2009 Office visit Brannon Manuel DO 06/27/2009 Office visit Brannon Manuel DO
--- OUTSIDE RECORDS SUMMARY | 2018-10-25 09:46 | XMS REPORT ---
Author Author Lakia Reina [facility] Address [address] [place], [place] [id number] Care Team Providers Care Employee Relations Director Name Role Phone Lakia Reina PCP Brannon [...] by topical route 4 times per day Zithromax 250 mg oral tablet 10/28/2017 11/02/2017 take 2 tablets (500 mg) by oral route once daily x 5 days (hold cholesterol med and hydroxine while on antibiotic) Name Start Date Expiration Date SIG Comments [...] 2 times per day for 7 days [place] Thyroid 120 mg oral tablet 12/14/2012 12/09/2013 [...] 7 days hydrocodone-acetaminophen 10-325 mg oral tablet 09/29/2017 10/29/2017 [...] AM Kenalog per 10Mg Im-[facility]#[address]-59(Man) Reviewed 12/23/2011 12:00 AM DRAIN/INJ JOINT/BURSA W/O US Reviewed 12/23/2011 12:00 AM Kenalog 40 Mg Im-[facility]#5564-9237-82 Reviewed 11/19/2016 12:00 AM X-RAY EXAM OF HAND Reviewed 01/19/2017 12:00 AM COMPLETE CBC W/AUTO DIFF WBC Reviewed 01/19/2017 12:00 AM COMPREHEN METABOLIC PANEL Reviewed 01/19/2017 12:00 AM GLYCOSYLATED HEMOGLOBIN TEST Reviewed 05/25/2012 12:00 AM INJ TRIGGER POINT 1/2 MUSCL Reviewed 05/25/2012 12:00 AM Kenalog, Per 10 Mg [facility]#0296-9383-31 Reviewed 06/14/2012 12:00 AM DRAIN/INJ JOINT/BURSA W/O US Reviewed 06/14/2012 12:00 AM Kenalog, Per 10 Mg [facility]#4243-5648-16 Reviewed 05/09/2017 12:00 AM MAMMOGRAPHY SCREENING, DIGITAL Reviewed 07/11/2012 12:00 AM THER/PROPH/DIAG INJ SC/IM Reviewed 07/11/2012 12:00 AM Decadron 1 mg [facility]#[id number] (Manuel) Reviewed 07/11/2012 12:00 AM Depo-Medrol 80 mg [facility]#[id number]-Otaffnep Reviewed 08/21/2012 12:00 AM ASSAY CARBOXYHB QUANT Reviewed 09/01/2017 12:00 AM RADIOLOGIC EXAMINATION KNEE 1/2 VIEWS Reviewed 09/18/2012 12:00 AM DRAIN/INJ JOINT/BURSA W/O US Reviewed 09/18/2012 12:00 AM Kenalog, Per 10 Mg [facility]#5733-0742-87 Reviewed 10/25/2017 12:00 AM RADIOLOGIC EXAMINATION KNEE 3 VIEWS Returned 10/13/2012 12:00 AM COMPREHEN METABOLIC PANEL Reviewed 10/13/2012 12:00 AM LIPID PANEL Reviewed 10/13/2012 12:00 AM GLYCOSYLATED HEMOGLOBIN TEST Reviewed 10/13/2012 12:00 AM MICROALBUMIN SEMIQUANT Reviewed 04/15/2010 12:00 AM MAMMOGRAM SCREENING Reviewed 12/06/2012 12:00 AM DRAIN/INJ JOINT/BURSA W/O US Reviewed 12/06/2012 12:00 AM Kenalog, Per 10 Mg [facility]#9298-5124-88 Reviewed 12/22/2012 12:00 AM TOTAL CORTISOL Reviewed 04/26/2013 12:00 AM DRAIN/INJ JOINT/BURSA W/O US Reviewed 04/26/2013 12:00 AM Kenalog, Per 10 Mg [facility]#8187-8118-67 Reviewed 05/10/2013 12:00 AM DRAIN/INJ JOINT/BURSA W/O US Reviewed 05/10/2013 12:00 AM Kenalog, Per 10 Mg [facility]#2019-5506-96 Reviewed 05/10/2013 12:00 AM DRAIN/INJ JOINT/BURSA W/O US Reviewed 05/10/2013 12:00 AM Kenalog, Per 10 Mg [facility]#1945-3983-83 Reviewed 05/28/2013 12:00 AM MAMMOGRAM SCREENING Reviewed [...] 12:00 AM Kenalog, Per 10 Mg [facility]#8734-9566-77 Reviewed 04/05/2014 12:00 AM COMPLETE CBC W/AUTO [...] Policy Group Number Start Date Gpa Gpa [id number] Saturday, 2015 [employer] [place] [id number] Saturday, 2009 [employer] [place] [id number] Wednesday, 2009 History of Encounters Visit Date Visit Type Provider 10/28/2017 Office visit Lakia Reina CASING COOKER 10/25/2017 Office visit Regina Mcnally CASING COOKER 10/05/2017 Office visit Regina Mcnally CASING COOKER 09/01/2017 Office visit Brannon Jackson DO 06/29/2017 Office visit Karyna Gilbert CASING COOKER 06/18/2017 Office visit Karyna Gilbert CASING COOKER 05/09/2017 Office visit Brannon Jackson DO 03/08/2017 Office visit Brannon Jackson DO 01/25/2017 Office visit Brannon Jackson DO 01/19/2017 Office visit Regina Mcnally CASING COOKER 01/04/2017 Procedures Reagan Lehman DO 12/24/2016 Office visit Brannon Jackson DO 12/23/2016 Surgery Reagan Lehman DO 12/14/2016 Office visit Reagan Lehman DO 11/25/2016 Office visit Brannon Jackson DO 11/19/2016 Office visit Sandra Milton CASING COOKER 11/02/2016 Office visit Lakia Reina CASING COOKER 09/09/2016 Office visit Brannon Jackson DO 05/18/2016 [...] Manuel DO 07/03/2014 Office visit Rob Ruiz CASING COOKER 06/11/2014 Office visit Cass BRAY 04/29/2014 Office visit Cass BRAY 04/29/2014 Office visit Brannon Manuel DO 04/05/2014 Office visit Harjinder Paiz PA-C 02/25/2014 Office visit Cass BRAY 01/02/2014 Office visit Cass BRAY 12/18/2013 Office visit Cass BRAY 09/13/2013 Office visit Brannon Jackson DO 08/27/2013 Office visit Regina Mcnally CASING COOKER 08/17/2013 Office visit Ray Tripathi APRN 05/21/2013 Office visit Brannon Jackson DO 05/10/2013 Office visit Anirudh Conway MD 04/26/2013 Office visit Anirudh Conway MD 12/22/2012 Office visit Brannon Jackson DO 12/14/2012 [facility] Sandra Ca MD 12/12/2012 Office visit Brannon Jackson DO 12/12/2012 [facility] Sandra Ca MD 12/06/2012 Office visit Anirudh Conway MD 11/24/2012 Office visit Regina Mcnally CASING COOKER 10/12/2012 [facility] Anirudh Conway MD 10/10/2012 Office visit Brannon Jackson DO 09/18/2012 Office visit Anirudh Conway MD 09/01/2012 Office visit Brannon Jackson DO 08/21/2012 Office visit Brannon Jackson DO 08/01/2012 Office visit Brannon Jackson DO 07/11/2012 Office visit Regina Mcnally CASING COOKER 06/14/2012 Office visit Anirudh Conway MD 05/25/2012 Office visit Anirudh Conway MD 05/04/2012 Office visit Brannon Jackson DO 12/23/2011 Office visit Anirudh Conway MD 12/16/2011 Office visit Brannon Jackson DO 12/06/2011 Office visit Anirudh Conway MD 11/11/2011 Office visit Brannon Jackson DO 10/28/2011 Office visit Brannon Jackson DO 10/22/2011 [facility] Valery [...] Jackson DO 08/18/2010 Office visit Regina Mcnally CASING COOKER 02/03/2010 Office visit Brannon Jackson DO 12/02/2009 Office visit Brannon Manuel DO 06/27/2009 Office visit Brannon Jackson DO
--- OUTSIDE RECORDS SUMMARY | 2018-10-25 09:48 | XMS REPORT ---
Author Reagan Lopez [facility] Address [address] [place], [place] [id number] Care Team Providers Care Christmas Tree Grader Name Role Phone Reagan Lehman PCP Unavailable [...] 2 times per day for 7 days [place] Thyroid 120 mg oral tablet 12/14/2012 12/09/2013 [...] HC BMI BSA BMI Percentile O2 Sat(%) 12/14/2016 2:45:00 PM 168 mmHg 93 mmHg [...] AM Kenalog per 10Mg Im-[facility]#[address]-90(Man) Reviewed 12/23/2011 12:00 AM DRAIN/INJ JOINT/BURSA W/O US Reviewed 12/23/2011 12:00 AM Kenalog 40 Mg [facility]#2939-4111-92 Reviewed 11/19/2016 12:00 AM X-RAY EXAM OF HAND Reviewed 05/25/2012 12:00 AM INJ TRIGGER POINT 1/2 MUSCL Reviewed 05/25/2012 12:00 AM Kenalog, Per 10 Mg [facility]#9210-0754-03 Reviewed 06/14/2012 12:00 AM DRAIN/INJ JOINT/BURSA W/O US Reviewed 06/14/2012 12:00 AM Kenalog, Per 10 Mg [facility]#1514-9820-05 Reviewed 07/11/2012 12:00 AM THER/PROPH/DIAG INJ SC/IM Reviewed 07/11/2012 12:00 AM Decadron 1 mg [facility]#[id number] (Manuel) Reviewed 07/11/2012 12:00 AM Depo-Medrol 80 mg [facility]#[id number]-Pjhozkzc Reviewed 08/21/2012 12:00 AM ASSAY CARBOXYHB QUANT Reviewed 09/18/2012 12:00 AM DRAIN/INJ JOINT/BURSA W/O US Reviewed 09/18/2012 12:00 AM Kenalog, Per 10 Mg [facility]#3703-1355-81 Reviewed 10/13/2012 12:00 AM COMPREHEN METABOLIC PANEL Reviewed 10/13/2012 12:00 AM LIPID PANEL Reviewed 10/13/2012 12:00 AM GLYCOSYLATED HEMOGLOBIN TEST Reviewed 10/13/2012 12:00 AM MICROALBUMIN SEMIQUANT Reviewed 04/15/2010 12:00 AM MAMMOGRAM SCREENING Reviewed 12/06/2012 12:00 AM DRAIN/INJ JOINT/BURSA W/O US Reviewed 12/06/2012 12:00 AM Kenalog, Per 10 Mg [facility]#5795-5051-40 Reviewed 12/22/2012 12:00 AM TOTAL CORTISOL Reviewed 04/26/2013 12:00 AM DRAIN/INJ JOINT/BURSA W/O US Reviewed 04/26/2013 12:00 AM Kenalog, Per 10 Mg [facility]#7200-9400-68 Reviewed 05/10/2013 12:00 AM DRAIN/INJ JOINT/BURSA W/O US Reviewed 05/10/2013 12:00 AM Kenalog, Per 10 Mg [facility]#6605-0608-86 Reviewed 05/10/2013 12:00 AM DRAIN/INJ JOINT/BURSA W/O US Reviewed 05/10/2013 12:00 AM Kenalog, Per 10 Mg [facility]#7754-1755-20 Reviewed 05/28/2013 12:00 AM MAMMOGRAM SCREENING Reviewed [...] 03/05/2014 12:00 AM Kenalog, Per 10 Mg [facility]#8271-4843-25 Reviewed 04/05/2014 12:00 AM COMPLETE CBC W/AUTO [...] Policy Group Number Start Date Gpa Gpa [id number] Saturday, 2015 [facility] [id number] Saturday, 2009 [facility] [id number] Wednesday, 2009 History of Encounters Visit Date Visit Type Provider 12/14/2016 Office visit Reagan Lehman DO 11/25/2016 Office visit Brannon Jackson DO 11/19/2016 Office visit Sandra Milton AUTOMOTIVE SERVICE CASHIER 11/02/2016 Office visit Lakia Reina AUTOMOTIVE SERVICE CASHIER 09/09/2016 Office visit Brannon Manuel DO 05/18/2016 Office visit Brannon Manuel DO 05/05/2016 Office visit 05/05/2016 Office visit Brannon Jackson DO 02/05/2016 Office visit Brannon Manuel DO [...] Jackson DO 09/05/2014 Office visit Cass Arellano MANUFACTURING INDUSTRIAL ENGINEER 07/29/2014 Office visit Cassrosamaria Arellano MANUFACTURING INDUSTRIAL ENGINEER 07/18/2014 Office visit Brannon Manuel DO 07/03/2014 Office visit Rob Joseph AUTOMOTIVE SERVICE CASHIER 06/11/2014 Office visit Cass Arellano MANUFACTURING INDUSTRIAL ENGINEER 04/29/2014 Office visit Cass Arellano MANUFACTURING INDUSTRIAL ENGINEER 04/29/2014 Office visit Brannon Manuel DO 04/05/2014 Office visit Harjinder Paiz PA-C 02/25/2014 Office visit Cass Arellano MANUFACTURING INDUSTRIAL ENGINEER 01/02/2014 Office visit Cass Arellano MANUFACTURING INDUSTRIAL ENGINEER 12/18/2013 Office visit Cassrosamaria Arellano MANUFACTURING INDUSTRIAL ENGINEER 09/13/2013 Office visit Brannon Jackson DO 08/27/2013 Office visit Regina Mcnally AUTOMOTIVE SERVICE CASHIER 08/17/2013 Office visit Ray Tripathi AUTOMOTIVE SERVICE CASHIER 05/21/2013 Office visit Brannon Jackson DO 05/10/2013 Office visit Anirudh Conway MD 04/26/2013 Office visit Anirudh Conway MD 12/22/2012 Office visit Brannon Jackson DO 12/14/2012 [facility] Sandra Ca MD 12/12/2012 Office visit Brannon Jackson DO 12/12/2012 [facility] Sandra Ca MD 12/06/2012 Office visit Anirudh Conwya MD 11/24/2012 Office visit Regina Mcnally AUTOMOTIVE SERVICE CASHIER 10/12/2012 [facility] Anirudh Conway MD 10/10/2012 Office visit Brannon Jackson DO 09/18/2012 Office visit Anirudh Conway MD 09/01/2012 Office visit Brannon Jackson DO 08/21/2012 Office visit Brannon Jackson DO 08/01/2012 Office visit Brannon Jackson DO 07/11/2012 Office visit Regina Mcnally AUTOMOTIVE SERVICE CASHIER 06/14/2012 Office visit Anirudh Conway MD 05/25/2012 Office visit Anirudh Conway MD 05/04/2012 Office visit Brannon Jackson DO 12/23/2011 Office visit Anirudh Conway MD 12/16/2011 Office visit Brannon Jackson DO 12/06/2011 Office visit Anirudh Conway MD 11/11/2011 Office visit Brannon Jackson DO 10/28/2011 Office visit Brannon Jackson DO 10/22/2011 [facility] Valery Cerna MD 10/21/2011 [facility] Valery Cerna MD 10/19/2011 Office visit Brannon Jackson DO 10/19/2011 [facility] Anderson Dawkins MD 10/07/2011 Office visit Brannon Jackson DO 04/27/2011 Office visit Brannon Jackson DO 04/16/2011 Office visit Brannon Jackson DO 12/18/2010 Office visit Brannon Jackson DO 11/17/2010 Office visit Brannon Jackson DO 10/08/2010 Office visit Brannon Jcakson DO 08/18/2010 Office visit Regina Mcnally APRN 02/03/2010 Office visit Brannon Jackson DO 12/02/2009 Office visit Brannon Jackson DO 06/27/2009 Office visit Brannon Jackson DO
--- OUTSIDE RECORDS SUMMARY | 2018-10-25 09:50 | XMS REPORT ---
Author Author Brannon Jackson [facility] Address [address] [place], [place] [id number] Care Team Providers Care Prenatal Nurse Name Role Phone Brannon Jackson PCP Unavailable [...] 2 times per day for 7 days [place] Thyroid 120 mg oral tablet 12/14/2012 12/09/2013 [...] Reviewed 12/13/2011 12:00 AM Kenalog per 10Mg [facility]#[address]-44(Man) Reviewed 12/23/2011 12:00 AM DRAIN/INJ JOINT/BURSA W/O US Reviewed 12/23/2011 12:00 AM Kenalog 40 Mg [facility] [place]#0410-4253-95 Reviewed 11/19/2016 12:00 AM X-RAY EXAM OF HAND Reviewed 05/25/2012 12:00 AM INJ TRIGGER POINT 1/2 MUSCL Reviewed 05/25/2012 12:00 AM Kenalog, Per 10 Mg [facility]#2880-1054-11 Reviewed 06/14/2012 12:00 AM DRAIN/INJ JOINT/BURSA W/O US Reviewed 06/14/2012 12:00 AM Kenalog, Per 10 Mg [place]#9169-0772-25 Reviewed 07/11/2012 12:00 AM THER/PROPH/DIAG INJ SC/IM Reviewed 07/11/2012 12:00 AM Decadron 1 mg [facility]#[id number] (Manuel) Reviewed 07/11/2012 12:00 AM Depo-Medrol 80 mg [facility]#[id number]-Boghhjoq Reviewed 08/21/2012 12:00 AM ASSAY CARBOXYHB QUANT Reviewed 09/18/2012 12:00 AM DRAIN/INJ JOINT/BURSA W/O US Reviewed 09/18/2012 12:00 AM Kenalog, Per 10 Mg [facility]#8779-8095-27 Reviewed 10/13/2012 12:00 AM COMPREHEN METABOLIC PANEL Reviewed 10/13/2012 12:00 AM LIPID PANEL Reviewed 10/13/2012 12:00 AM GLYCOSYLATED HEMOGLOBIN TEST Reviewed 10/13/2012 12:00 AM MICROALBUMIN SEMIQUANT Reviewed 04/15/2010 12:00 AM MAMMOGRAM SCREENING Reviewed 12/06/2012 12:00 AM DRAIN/INJ JOINT/BURSA W/O US Reviewed 12/06/2012 12:00 AM Kenalog, Per 10 Mg [facility]#0095-8541-97 Reviewed 12/22/2012 12:00 AM TOTAL CORTISOL Reviewed 04/26/2013 12:00 AM DRAIN/INJ JOINT/BURSA W/O US Reviewed 04/26/2013 12:00 AM Kenalog, Per 10 Mg [facility]#4234-5020-01 Reviewed 05/10/2013 12:00 AM DRAIN/INJ JOINT/BURSA W/O US Reviewed 05/10/2013 12:00 AM Kenalog, Per 10 Mg [facility]#4608-7752-75 Reviewed 05/10/2013 12:00 AM DRAIN/INJ JOINT/BURSA W/O US Reviewed 05/10/2013 12:00 AM Kenalog, Per 10 Mg [facility]#1224-8849-12 Reviewed 05/28/2013 12:00 AM MAMMOGRAM SCREENING Reviewed [...] 03/05/2014 12:00 AM [place], Per 10 Mg [facility]#5489-2943-23 Reviewed 04/05/2014 12:00 AM COMPLETE CBC W/AUTO [...] Number Policy Group Number Start Date [facility] Gpa [id number] Saturday, 2015 [employer] [place] [id number] Saturday, 2009 [employer] [place] [id number] Wednesday, 2009 History of Encounters Visit Date Visit Type Provider 12/24/2016 Office visit Brannon Jackson DO 12/23/2016 Surgery Reagan Lehman DO 12/14/2016 Office visit Reagan Lehman DO 11/25/2016 Office visit Brannon Jackson DO 11/19/2016 Office visit Sandra Milton GYMNASTIC COACH 11/02/2016 Office visit Lakia Reina GYMNASTIC COACH 09/09/2016 Office visit Brannon Jackson DO 05/18/2016 [...] BRAY 02/05/2015 Nurse visit Cass BRAY 12/17/2014 [facility] Dinesh Zhu MD 12/17/2014 Office visit Brannon Jackson DO 12/12/2014 Office visit Cass BRAY 10/29/2014 Office visit Cass BRAY 10/02/2014 Office visit Cass BRAY 09/20/2014 Office visit Brannon Jackson DO 09/05/2014 Office visit Cass BRAY 07/29/2014 Office visit Cass BRAY 07/18/2014 Office visit Brannon Jackson DO 07/03/2014 Office visit Rob Ruiz GYMNASTIC COACH 06/11/2014 Office visit Cass BRAY 04/29/2014 Office visit Cass BRAY 04/29/2014 Office visit Brannon Jackson DO 04/05/2014 Office visit Harjinder Paiz PA-C 02/25/2014 Office visit Cass BRAY 01/02/2014 Office visit Cass BRAY 12/18/2013 Office visit Cass BRAY 09/13/2013 Office visit Brannon Jackson DO 08/27/2013 Office visit Regina Mcnally GYMNASTIC COACH 08/17/2013 Office visit Ray Tripathi APRN 05/21/2013 Office visit Brannon Jackson DO 05/10/2013 Office visit Anirudh Conway MD 04/26/2013 Office visit Anirudh Conway MD 12/22/2012 Office visit Brannon Jackson DO 12/14/2012 [facility] Sandra Ca MD 12/12/2012 Office visit Brannon Jackson DO 12/12/2012 [facility] Sandra Ca MD 12/06/2012 Office visit Anirudh Conway MD 11/24/2012 Office visit Regina Mcnally APRN 10/12/2012 [facility] Anirudh Conway MD 10/10/2012 Office visit Brannon Jackson DO 09/18/2012 Office visit Anirudh Conway MD 09/01/2012 Office visit Brannon Jackson DO 08/21/2012 Office visit Brannon Manuel DO 08/01/2012 Office visit Brannon Manuel DO 07/11/2012 Office visit Regina Mcnally APRN [...] Jackson DO 10/19/2011 [facility] Anderson Dawkins MD 10/07/2011 Office visit Brannon Jackson DO 04/27/2011 Office visit Brannon Jackson DO 04/16/2011 Office visit Brannon Jackson DO 12/18/2010 Office visit Brannon Jackson DO 11/17/2010 Office visit Brannon Jackson DO 10/08/2010 Office visit Brannon Manuel DO 08/18/2010 Office visit Regina Mcnally APRN 02/03/2010 Office visit Brannon Jackson DO 12/02/2009 Office visit Brannon Jackson DO 06/27/2009 Office visit Brannon Jackson DO
--- OUTSIDE RECORDS SUMMARY | 2018-10-25 09:53 | XMS REPORT ---
Author Reagan Lopez [facility] Address [address] [place], [place] [address] Care Team Providers Care Produce Manager Name Role Phone Reagan Lehman PCP Unavailable [...] 2 times per day for 7 days [place] Thyroid 120 mg oral tablet 12/14/2012 12/09/2013 [...] 12:00 AM Kenalog per 10Mg [facility]#[address]-15(Man) Reviewed 12/23/2011 12:00 AM DRAIN/INJ JOINT/BURSA W/O US Reviewed 12/23/2011 12:00 AM Kenalog 40 Mg [facility]#1857-3475-85 Reviewed 11/19/2016 12:00 AM X-RAY EXAM OF HAND Reviewed 05/25/2012 12:00 AM INJ TRIGGER POINT 1/2 MUSCL Reviewed 05/25/2012 12:00 AM Kenalog, Per 10 Mg [facility][NOTE 3]#2423-1679-38 Reviewed 06/14/2012 12:00 AM DRAIN/INJ JOINT/BURSA W/O US Reviewed 06/14/2012 12:00 AM Kenalog, Per 10 Mg [facility][NOTE 3]#1188-4489-98 Reviewed 07/11/2012 12:00 AM THER/PROPH/DIAG INJ SC/IM Reviewed 07/11/2012 12:00 AM Decadron 1 mg [facility][NOTE 3]#[id number] (Manuel) Reviewed 07/11/2012 12:00 AM Depo-Medrol 80 mg [facility][NOTE 3]#[id number]-Kryzirsw Reviewed 08/21/2012 12:00 AM ASSAY CARBOXYHB QUANT Reviewed 09/18/2012 12:00 AM DRAIN/INJ JOINT/BURSA W/O US Reviewed 09/18/2012 12:00 AM Kenalog, Per 10 Mg [facility][NOTE 3]#8683-3390-76 Reviewed 10/13/2012 12:00 AM COMPREHEN METABOLIC PANEL Reviewed 10/13/2012 12:00 AM LIPID PANEL Reviewed 10/13/2012 12:00 AM GLYCOSYLATED HEMOGLOBIN TEST Reviewed 10/13/2012 12:00 AM MICROALBUMIN SEMIQUANT Reviewed 04/15/2010 12:00 AM MAMMOGRAM SCREENING Reviewed 12/06/2012 12:00 AM DRAIN/INJ JOINT/BURSA W/O US Reviewed 12/06/2012 12:00 AM Kenalog, Per 10 Mg [facility]#7092-0873-57 Reviewed 12/22/2012 12:00 AM TOTAL CORTISOL Reviewed 04/26/2013 12:00 AM DRAIN/INJ JOINT/BURSA W/O US Reviewed 04/26/2013 12:00 AM Kenalog, Per 10 Mg [facility]#3583-4160-70 Reviewed 05/10/2013 12:00 AM DRAIN/INJ JOINT/BURSA W/O US Reviewed 05/10/2013 12:00 AM Kenalog, Per 10 Mg [facility]#1374-5228-11 Reviewed 05/10/2013 12:00 AM DRAIN/INJ JOINT/BURSA W/O US Reviewed 05/10/2013 12:00 AM Kenalog, Per 10 Mg [facility]#4589-0363-69 Reviewed 05/28/2013 12:00 AM MAMMOGRAM SCREENING Reviewed [...] 03/05/2014 12:00 AM Kenalog, Per 10 Mg [facility]#5978-7045-51 Reviewed 04/05/2014 12:00 AM COMPLETE CBC W/AUTO [...] 3:28PM Ganglion cyst Dec 14 2016 2:58PM Back pain Dec 15 2016 10:20AM Payers Insurance Name Company Name Plan Name Plan Number Policy Number Policy Group Number Start Date Gpa Gpa [id number] Saturday, 2015 BCBS [employer] [facility] [id number] Saturday, 2009 [employer]BS [employer] [place] [id number] Wednesday, 2009 History of Encounters Visit Date Visit Type Provider 12/14/2016 Office visit Reagan Lehman DO 11/25/2016 Office visit Brannon Jackson DO 11/19/2016 Office visit Sandra Milton SEXER 11/02/2016 Office visit Lakia Reina SEXER 09/09/2016 Office visit Brannon Jackson DO 05/18/2016 [...] Manuel DO 09/05/2014 Office visit Cass Arellano LEATHER CUTTER 07/29/2014 Office visit Cass Arellano LEATHER CUTTER 07/18/2014 Office visit Brannon Manuel DO 07/03/2014 Office visit Rob Ruiz SEXER 06/11/2014 Office visit Cass Castaneda Adan LEATHER CUTTER 04/29/2014 Office visit Cass Arellano LEATHER CUTTER 04/29/2014 Office visit Brannon Manuel DO 04/05/2014 Office visit Harjinder Paiz PA-C 02/25/2014 Office visit Cass Arellano LEATHER CUTTER 01/02/2014 Office visit Cass Arellano LEATHER CUTTER 12/18/2013 Office visit Cass Arellano LEATHER CUTTER 09/13/2013 Office visit Brannon Jackson DO 08/27/2013 Office visit Regina Mcnally SEXER 08/17/2013 Office visit Ray Tripathi SEXER 05/21/2013 Office visit Brannon Jackson DO 05/10/2013 Office visit Anirudh Conway MD 04/26/2013 Office visit Anirudh Conway MD 12/22/2012 Office visit Brannon Jackson DO 12/14/2012 [facility] Sandra Ca MD 12/12/2012 Office visit Brannon Jackson DO 12/12/2012 [facility] Sandra Ca MD 12/06/2012 Office visit Anirudh Conway MD 11/24/2012 Office visit Regina Mcnally SEXER 10/12/2012 [facility] Anirudh Conway MD 10/10/2012 Office visit Brannon Jackson DO 09/18/2012 Office visit Anirudh Conway MD 09/01/2012 Office visit Brannon Jackson DO 08/21/2012 Office visit Brannon Jackson DO 08/01/2012 Office visit Brannon Jackson DO 07/11/2012 Office visit Regina Mcnally SEXER 06/14/2012 Office visit Anirudh Conway MD 05/25/2012 [...]
--- OUTSIDE RECORDS SUMMARY | 2018-10-25 09:54 | XMS REPORT ---
Author Author Brannon Jackson [facility] Address [address] [place] [id number] Care Team Providers Care Garnisher Name Role Phone Brannon Jackson PCP Unavailable Allergies and Adverse Reactions Name Reaction Notes Promethazine vomiting Zofran vomiting Plan of Treatment Planned Activity Comments Planned Date Planned Time Plan/Goal MRI PELVIS W/O DYE 08/01/2015 12:00 AM GLYCOSYLATED HEMOGLOBIN TEST 11/10/2015 12:00 AM C-REACTIVE PROTEIN 05/04/2012 12:00 AM [...] Multivitamin, Hair, Skin,and Nails one tablet daily tolterodine 4 mg oral capsule,extended release [...] [place] alprazolam 0.5 mg oral tablet 10/17/2015 11/16/2015 TAKE ONE TABLET BY MOUTH TWICE DAILY NEEDED amitriptyline 10 mg oral tablet 11/03/2015 02/01/2016 take 1 tablet by oral route once a day (at bedtime) for 90 days cyclobenzaprine 10 mg oral tablet 11/14/2015 03/13/2016 take 1 tablet by oral route every 8 hours as needed for 30 days muscle spasm Name Start Date Expiration [...] 2 times per day for 7 days [place] Thyroid 120 mg oral tablet 12/14/2012 12/09/2013 [...] oral route once daily for 90 days amantadine HCl 100 mg oral tablet [...] 12/13/2011 12:00 AM Kenalog per 10Mg Im-[facility]#[address]-60(Man) Reviewed 12/23/2011 12:00 AM DRAIN/INJ JOINT/BURSA W/O US Reviewed 12/23/2011 12:00 AM Kenalog 40 Mg Im-[facility]#3099-2826-15 Reviewed 05/25/2012 12:00 AM INJ TRIGGER POINT 1/2 MUSCL Reviewed 05/25/2012 12:00 AM Kenalog, Per 10 Mg [facility]#1656-3438-13 Reviewed 06/14/2012 12:00 AM DRAIN/INJ JOINT/BURSA W/O US Reviewed 06/14/2012 12:00 AM Kenalog, Per 10 Mg [facility]#2448-5350-91 Reviewed 07/11/2012 12:00 AM THER/PROPH/DIAG INJ SC/IM Reviewed 07/11/2012 12:00 AM Decadron 1 mg [facility]#[id number] (Manuel) Reviewed 07/11/2012 12:00 AM Depo-Medrol 80 mg [facility]#[id number]-Jirjmqat Reviewed 08/21/2012 12:00 AM ASSAY CARBOXYHB QUANT Reviewed 09/18/2012 12:00 AM DRAIN/INJ JOINT/BURSA W/O US Reviewed 09/18/2012 12:00 AM Kenalog, Per 10 Mg [facility]#3969-1487-78 Reviewed 10/13/2012 12:00 AM COMPREHEN METABOLIC PANEL Reviewed 10/13/2012 12:00 AM LIPID PANEL Reviewed 10/13/2012 12:00 AM GLYCOSYLATED HEMOGLOBIN TEST Reviewed 10/13/2012 12:00 AM MICROALBUMIN SEMIQUANT Reviewed 04/15/2010 12:00 AM MAMMOGRAM SCREENING Reviewed 12/06/2012 12:00 AM DRAIN/INJ JOINT/BURSA W/O US Reviewed 12/06/2012 12:00 AM Kenalog, Per 10 Mg [facility]#2066-5614-39 Reviewed 12/22/2012 12:00 AM TOTAL CORTISOL Reviewed 04/26/2013 12:00 AM DRAIN/INJ JOINT/BURSA W/O US Reviewed 04/26/2013 12:00 AM Kenalog, Per 10 Mg [facility]#3877-5606-65 Reviewed 05/10/2013 12:00 AM DRAIN/INJ JOINT/BURSA W/O US Reviewed 05/10/2013 12:00 AM Kenalog, Per 10 Mg [facility]#6065-8244-36 Reviewed 05/10/2013 12:00 AM DRAIN/INJ JOINT/BURSA W/O US Reviewed 05/10/2013 12:00 AM Kenalog, Per 10 Mg [facility]#9967-4002-33 Reviewed 05/28/2013 12:00 AM MAMMOGRAM SCREENING Reviewed [...] AM Kenalog, Per 10 Mg [facility]#9265-7513-85 Reviewed 04/05/2014 12:00 AM COMPLETE CBC W/AUTO [...] BILI 0.90 mg/dLCALCIUM 9.50 mg/dLeGFR >60 mL/min/1.73 [id number] 18.0 U/L 01/02/2014 10:02 AM GLUCOSE 134.0 [...] Hip Feb 6 2011 4:20PM Bursitis Feb 2011 4:20PM Pain [...] Policy Group Number Start Date [employer]BS [employer] [facility] [id number] Wednesday, 2009 [employer] [facility] [id number] Saturday, 2009 History of Encounters Visit Date [...] Brannon Jackson DO 12/12/2014 Office visit Cass Arellano LAUNDRY OR DRY CLEANERS COUNTER CLERK 10/29/2014 Office visit Cass Arellano LAUNDRY OR DRY CLEANERS COUNTER CLERK 10/02/2014 Office visit Cass Arellano LAUNDRY OR DRY CLEANERS COUNTER CLERK 09/20/2014 Office visit Brannon Manuel DO 09/05/2014 Office visit Cass Arellano LAUNDRY OR DRY CLEANERS COUNTER CLERK 07/29/2014 Office visit Cass Arellano LAUNDRY OR DRY CLEANERS COUNTER CLERK 07/18/2014 Office visit Brannon Jackson DO 07/03/2014 Office visit Rob Ruiz FOOD SAMPLER 06/11/2014 Office visit Cass Arellano LAUNDRY OR DRY CLEANERS COUNTER CLERK 04/29/2014 Office visit Cass Arellano LAUNDRY OR DRY CLEANERS COUNTER CLERK 04/29/2014 Office visit Brannon Jackson DO 04/05/2014 Office visit Harjinder Paiz PA-C 02/25/2014 Office visit Cass Arellano LAUNDRY OR DRY CLEANERS COUNTER CLERK 01/02/2014 Office visit Cass Arellano LAUNDRY OR DRY CLEANERS COUNTER CLERK 12/18/2013 Office visit Cass Arellano LAUNDRY OR DRY CLEANERS COUNTER CLERK 09/13/2013 Office visit Brannon Jackson DO 08/27/2013 Office visit Regina Mcnally FOOD SAMPLER 08/17/2013 Office visit Ray Tripathi FOOD SAMPLER 05/21/2013 Office visit Brannon Jackson DO 05/10/2013 Office visit Anirudh Conway MD 04/26/2013 Office visit Anirudh Conway MD 12/22/2012 Office visit Brannon Jackson DO 12/14/2012 [facility] Sandra Ca MD 12/12/2012 Office visit Brannon Jackson DO 12/12/2012 [facility] Sandra Ca MD 12/06/2012 Office visit Anirudh Conway MD 11/24/2012 Office visit Regina Mcnally APRN 10/12/2012 [facility] Anirudh Conway MD 10/10/2012 Office visit Brannon Jackson DO 09/18/2012 Office visit Anirudh Conway MD 09/01/2012 Office visit Brannon Jackson DO 08/21/2012 Office visit Brannon Jackson DO 08/01/2012 Office visit Brannon Jackson DO 07/11/2012 Office visit Regina Mcnally FOOD SAMPLER 06/14/2012 Office visit Anirudh Conway MD 05/25/2012 Office visit Anirudh Conway MD 05/04/2012 Office visit Brannon Jackson DO 12/23/2011 Office visit Anirudh Conway MD 12/16/2011 Office visit Brannon Jackson DO 12/06/2011 Office visit Anirudh Conway MD 11/11/2011 Office visit Brannon Jackson DO 10/28/2011 Office visit Brannon Jackson DO 10/22/2011 [facility] Valery Cerna MD 10/21/2011 [facility] Valery Cerna MD 10/19/2011 Office visit Brannon Jackson DO 10/19/2011 [facility] Anderson Dawkins MD 10/07/2011 Office visit [...]
--- OUTSIDE RECORDS SUMMARY | 2018-10-25 09:57 | XMS REPORT ---
Author Author Brannon Jackson [facility] Address [address] [place], [place] [address] Care Team Providers Care Reconstructive Surgeon Name Role Phone Brannon Jackson PCP Unavailable [...] tablet 07/11/2017 01/02/2019 TAKE 1 TABLET DAILY hydrocodone-acetaminophen 10-325 mg oral tablet 08/04/2017 09/03/2017 take 1 tablet by oral route every 6 hours for 30 days Tivorbex 40 mg oral capsule 09/01/2017 take [...] 2 times per day for 7 days [place] Thyroid 120 mg oral tablet 12/14/2012 12/09/2013 [...] Reviewed 12/13/2011 12:00 AM Kenalog per 10Mg Im-[facility]#[address]-28(Man) Reviewed 12/23/2011 12:00 AM DRAIN/INJ JOINT/BURSA W/O US Reviewed 12/23/2011 12:00 AM Kenalog 40 Mg [facility]#2941-0998-07 Reviewed 11/19/2016 12:00 AM X-RAY EXAM OF HAND Reviewed 01/19/2017 12:00 AM COMPLETE CBC W/AUTO DIFF WBC Reviewed 01/19/2017 12:00 AM COMPREHEN METABOLIC PANEL Reviewed 01/19/2017 12:00 AM GLYCOSYLATED HEMOGLOBIN TEST Reviewed 05/25/2012 12:00 AM INJ TRIGGER POINT 1/2 MUSCL Reviewed 05/25/2012 12:00 AM Kenalog, Per [address] [facility]#8548-6939-07 Reviewed 06/14/2012 12:00 AM DRAIN/INJ JOINT/BURSA W/O US Reviewed 06/14/2012 12:00 AM Kenalog, Per [address] [facility]#9282-0195-21 Reviewed 05/09/2017 12:00 AM MAMMOGRAPHY SCREENING, DIGITAL Reviewed 07/11/2012 12:00 AM THER/PROPH/DIAG INJ SC/IM Reviewed 07/11/2012 12:00 [address] [facility]#[id number] (Manuel) Reviewed 07/11/2012 12:00 AM Depo-Medrol [address] [facility]#[id number]-Dqvqukyi Reviewed 08/21/2012 12:00 AM ASSAY CARBOXYHB QUANT Reviewed 09/01/2017 12:00 AM RADIOLOGIC EXAMINATION KNEE 1/2 VIEWS Reviewed 09/18/2012 12:00 AM DRAIN/INJ JOINT/BURSA W/O US Reviewed 09/18/2012 12:00 AM Kenalog, Per [address] [facility]#9465-1192-75 Reviewed 10/13/2012 12:00 AM COMPREHEN METABOLIC PANEL Reviewed 10/13/2012 12:00 AM LIPID PANEL Reviewed 10/13/2012 12:00 AM GLYCOSYLATED HEMOGLOBIN TEST Reviewed 10/13/2012 12:00 AM MICROALBUMIN SEMIQUANT Reviewed 04/15/2010 12:00 AM MAMMOGRAM SCREENING Reviewed 12/06/2012 12:00 AM DRAIN/INJ JOINT/BURSA W/O US Reviewed 12/06/2012 12:00 AM Kenalog, Per [address] [facility]#1635-1217-72 Reviewed 12/22/2012 12:00 AM TOTAL CORTISOL Reviewed 04/26/2013 12:00 AM DRAIN/INJ JOINT/BURSA W/O US Reviewed 04/26/2013 12:00 AM Kenalog, Per [address] [facility]#6161-2335-55 Reviewed 05/10/2013 12:00 AM DRAIN/INJ JOINT/BURSA W/O US Reviewed 05/10/2013 12:00 AM Kenalog, Per [address] [facility]#1335-7762-54 Reviewed 05/10/2013 12:00 AM DRAIN/INJ JOINT/BURSA W/O US Reviewed 05/10/2013 12:00 AM Kenalog, Per [address] [facility]#5349-8683-37 Reviewed 05/28/2013 12:00 AM MAMMOGRAM SCREENING Reviewed [...] [address] [facility]#1972-8090-72 Reviewed 04/05/2014 12:00 AM COMPLETE CBC W/AUTO [...] Policy Number Policy Group Number Start Date [facility] [id number] Saturday, 2015 BCBS [employer] [facility] [id number] Saturday, 2009 [employer] [place] [id number] Wednesday, 2009 History of Encounters Visit Date Visit Type Provider 09/01/2017 Office visit Brannon Jackson DO 06/29/2017 Office visit Karyna Gilbert ENGINEERED WOOD DESIGNER 06/18/2017 Office visit Karyna Gilbert ENGINEERED WOOD DESIGNER 05/09/2017 Office visit Brannon Jackson DO 03/08/2017 Office visit Brannon Jackson DO 01/25/2017 Office visit Brannon Jackson DO 01/19/2017 Office visit Regina Mcnally ENGINEERED WOOD DESIGNER 01/04/2017 Procedures Reagan Lehman DO 12/24/2016 Office visit Brannon Jackson DO 12/23/2016 Surgery Reagan Lehman DO 12/14/2016 Office visit Reagan Lehman DO 11/25/2016 Office visit Brannon Jackson DO 11/19/2016 Office visit Sandra Yoan ENGINEERED WOOD DESIGNER 11/02/2016 Office visit Lakia Reina ENGINEERED WOOD DESIGNER 09/09/2016 Office visit Brannon Jackson DO 05/18/2016 [...] Ruiz APRN 06/11/2014 Office visit Cass Arellano CYBER SECURITY ADMINISTRATOR 04/29/2014 Office visit Cassrosamaria Arellano CYBER SECURITY ADMINISTRATOR 04/29/2014 Office visit Brannon Manuel DO 04/05/2014 Office visit Harjinder Paiz PA-C 02/25/2014 Office visit Cass Arellano CYBER SECURITY ADMINISTRATOR 01/02/2014 Office visit Cass Arellano CYBER SECURITY ADMINISTRATOR 12/18/2013 Office visit Cass MMonse Arellano CYBER SECURITY ADMINISTRATOR 09/13/2013 Office visit Brannon Jackson DO 08/27/2013 Office visit Regina Mcnally ENGINEERED WOOD DESIGNER 08/17/2013 Office visit Ray Tripathi ENGINEERED WOOD DESIGNER 05/21/2013 Office visit Brannon Jackson DO 05/10/2013 Office visit Anirudh Conway MD 04/26/2013 Office visit Anirudh Conway MD 12/22/2012 Office visit Brannon Jackson DO 12/14/2012 [facility] Sandra Ca MD 12/12/2012 Office visit Brannon Jackson DO 12/12/2012 [facility] Sandra Ca MD 12/06/2012 Office visit Anirudh Conway MD 11/24/2012 Office visit Regina Mcnally ENGINEERED WOOD DESIGNER 10/12/2012 [facility] Anirudh Conway MD 10/10/2012 Office visit Brannon Jackson DO 09/18/2012 Office visit Anirudh Conway MD 09/01/2012 Office visit Brannon Jackson DO 08/21/2012 Office visit Brannon Jackson DO 08/01/2012 Office visit Brannon Jackson DO 07/11/2012 Office visit Regina Mcnally ENGINEERED WOOD DESIGNER 06/14/2012 Office visit Anirudh Conway MD 05/25/2012 [...]
--- OUTSIDE RECORDS SUMMARY | 2018-10-25 09:58 | XMS REPORT ---
Author Author Cass Arellano [facility] Address [address] [place], [place] [address] Care Team Providers Care Caretaker Resort Name Role Phone Cass Arellano PCP Allergies [...] 3 mo supply for mail order through [employer] amitriptyline 10 mg oral tablet 08/29/2014 11/22/2015 [...] DAILY NEEDED hydrocodone-acetaminophen 10-325 mg oral tablet 07/02/2015 08/01/2015 take 1 tablet by oral route every 6 hours for 30 days cyclobenzaprine 10 mg oral tablet 07/02/2015 [...] 2 times per day for 7 days [place] Thyroid 120 mg oral tablet 12/14/2012 [...] HC BMI BSA BMI Percentile O2 Sat(%) 07/02/2015 4:07:00 PM 136 mmHg 74 mmHg [...] Reviewed 12/13/2011 12:00 AM Kenalog per 10Mg Im-[facility]#[address]-66(Man) Reviewed 12/23/2011 12:00 AM DRAIN/INJ JOINT/BURSA W/O US Reviewed 12/23/2011 12:00 AM Kenalog 40 Mg Im-[facility]#3967-3980-67 Reviewed 05/25/2012 12:00 AM INJ TRIGGER POINT 1/2 MUSCL Reviewed 05/25/2012 12:00 AM Kenalog, Per 10 Mg [facility]#4192-2194-63 Reviewed 06/14/2012 12:00 AM DRAIN/INJ JOINT/BURSA W/O US Reviewed 06/14/2012 12:00 AM Kenalog, Per 10 Mg [facility]#6363-9647-24 Reviewed 07/11/2012 12:00 AM THER/PROPH/DIAG INJ SC/IM Reviewed 07/11/2012 12:00 AM Decadron 1 mg [facility]#[id number] (Manuel) Reviewed 07/11/2012 12:00 AM Depo-Medrol 80 mg [facility]#[id number]-Bkbmnpvv Reviewed 08/21/2012 12:00 AM ASSAY CARBOXYHB QUANT Reviewed 09/18/2012 12:00 AM DRAIN/INJ JOINT/BURSA W/O US Reviewed 09/18/2012 12:00 AM Kenalog, Per 10 Mg [facility]#1600-4398-01 Reviewed 10/13/2012 12:00 AM COMPREHEN METABOLIC PANEL Reviewed 10/13/2012 12:00 AM LIPID PANEL Reviewed 10/13/2012 12:00 AM GLYCOSYLATED HEMOGLOBIN TEST Reviewed 10/13/2012 12:00 AM MICROALBUMIN SEMIQUANT Reviewed 04/15/2010 12:00 AM MAMMOGRAM SCREENING Reviewed 12/06/2012 12:00 AM DRAIN/INJ JOINT/BURSA W/O US Reviewed 12/06/2012 12:00 AM Kenalog, Per 10 Mg [facility]#8071-9546-29 Reviewed 12/22/2012 12:00 AM TOTAL CORTISOL Reviewed 04/26/2013 12:00 AM DRAIN/INJ JOINT/BURSA W/O US Reviewed 04/26/2013 12:00 AM Kenalog, Per 10 Mg [facility]#7539-9822-58 Reviewed 05/10/2013 12:00 AM DRAIN/INJ JOINT/BURSA W/O US Reviewed 05/10/2013 12:00 AM Kenalog, Per 10 Mg [facility]#0066-6580-14 Reviewed 05/10/2013 12:00 AM DRAIN/INJ JOINT/BURSA W/O US Reviewed 05/10/2013 12:00 AM Kenalog, Per 10 Mg [facility]#7697-9904-92 Reviewed 05/28/2013 12:00 AM MAMMOGRAM SCREENING Reviewed [...] Per 10 Mg [facility]#2855-6375-40 Reviewed 04/05/2014 12:00 AM COMPLETE CBC W/AUTO [...] BILI 0.90 mg/dLCALCIUM 9.50 mg/dLeGFR >60 mL/min/1.73 [id number] 18.0 U/L 01/02/2014 10:02 AM GLUCOSE 134.0 [...] Right b 2014 3:20PM Osteoarthritis, Left Hip Fe2014 3:20PM Fatigue Fe2014 3:20PM Diabetes Mellitus, Type II Feb 13 2014 12:09PM Dysuria Feb 13 2014 12:09PM Gastroesophageal Reflux Feb 2014 8:20AM Diabetes Mellitus, Type II Feb 2014 8:20AM Hyperlipidemia, mixed b 2014 8:20AM Hypertension Dec 17 2014 8:20AM Overactive bladder b 2014 8:20AM [...] Osteoarthritis, Left Hip Jul 02 2015 4:09PM Payers Insurance Name Company Name Plan Name Plan Number Policy Number Policy Group Number Start Date [employer] [place] [id number] Wednesday, 2009 [employer] [place] [id number] Saturday, 2009 History of Encounters Visit Date Visit Type Provider 07/02/2015 Office visit Cass BRAY 06/04/2015 Office visit Cass BRAY 05/15/2015 Office visit Brannon Jackson DO 05/08/2015 Nurse visit Cass BRAY 04/28/2015 Office visit Brannon Jackson DO 04/09/2015 Office visit Cass BRAY 04/01/2015 Winifred Zhu MD 04/01/2015 Office visit Brannon Jackson [...] Jackson DO 07/03/2014 Office visit Rob Ruiz FORMING YARDAGE CONTROL OPERATOR 06/11/2014 Office visit Cass ARCINIEGAP 04/29/2014 Office visit Cass ARCINIEGAP 04/29/2014 Office visit Brannon Jackson DO 04/05/2014 Office visit Harjinder Paiz PA-C 02/25/2014 Office visit Cass ARCINIEGAP 01/02/2014 Office visit Cass ARCINIEGAP 12/18/2013 Office visit Cass BRAY 09/13/2013 Office visit Brannon Jackson DO 08/27/2013 Office visit Regina Mcnally FORMING YARDAGE CONTROL OPERATOR 08/17/2013 Office visit Ray Tripathi APRN 05/21/2013 Office visit Brannon Jackson DO 05/10/2013 Office visit Anirudh Conway MD 04/26/2013 Office visit Anirudh Conway MD 12/22/2012 Office visit Brannon Jackson DO 12/14/2012 [facility] Sandra Ca MD 12/12/2012 Office visit Brannon Jackson DO 12/12/2012 [facility] Sandra Ca MD 12/06/2012 Office visit Anirudh Conway MD 11/24/2012 Office visit Regina Mcnally APRN 10/12/2012 [facility] Anirudh Conway MD 10/10/2012 Office [...] 10/28/2011 Office visit Brannon Jackson DO 10/22/2011 [facility] Valery Cerna MD 10/21/2011 [facility] Valery Cerna MD 10/19/2011 Office visit Brannon Jackson DO 10/19/2011 [facility] Anderson Dawkins MD 10/07/2011 Office [...]
--- OUTSIDE RECORDS SUMMARY | 2018-10-25 10:01 | XMS REPORT ---
Author Author Sandra Milton [facility] Address [address] [place], [place] [id number] Care Team Providers Care Firestopper Installer Name Role Phone Sandra Milton PCP Unavailable [...] 2 times per day for 7 days [place] Thyroid 120 mg oral tablet 12/14/2012 12/09/2013 [...] daily at bedtime for 7 days fentanyl mcg/hr transdermal patch 72 hour 10/29/2014 11/28/2014 [...] Kenalog per 10Mg Im-[facility]#[address]-27(Man) Reviewed 12/23/2011 12:00 AM DRAIN/INJ JOINT/BURSA W/O US Reviewed 12/23/2011 12:00 AM Kenalog 40 Mg Im-Ndc#0596-5821-84 Reviewed 11/19/2016 12:00 AM X-RAY EXAM OF HAND Reviewed 05/25/2012 12:00 AM INJ TRIGGER POINT 1/2 MUSCL Reviewed 05/25/2012 12:00 AM Kenalog, Per 10 Mg [facility]#1470-3700-43 Reviewed 06/14/2012 12:00 AM DRAIN/INJ JOINT/BURSA W/O US Reviewed 06/14/2012 12:00 AM Kenalog, Per 10 Mg ND#3608-4279-58 Reviewed 07/11/2012 12:00 AM THER/PROPH/DIAG INJ SC/IM Reviewed 07/11/2012 12:00 AM Decadron 1 mg [facility]#[id number] (Manuel) Reviewed 07/11/2012 12:00 AM Depo-Medrol 80 mg [facility]#[id number]-Lgjreldb Reviewed 08/21/2012 12:00 AM ASSAY CARBOXYHB QUANT Reviewed 09/18/2012 12:00 AM DRAIN/INJ JOINT/BURSA W/O US Reviewed 09/18/2012 12:00 AM Kenalog, Per 10 Mg [facility]#4024-1690-35 Reviewed 10/13/2012 12:00 AM COMPREHEN METABOLIC PANEL Reviewed 10/13/2012 12:00 AM LIPID PANEL Reviewed 10/13/2012 12:00 AM GLYCOSYLATED HEMOGLOBIN TEST Reviewed 10/13/2012 12:00 AM MICROALBUMIN SEMIQUANT Reviewed 04/15/2010 12:00 AM MAMMOGRAM SCREENING Reviewed 12/06/2012 12:00 AM DRAIN/INJ JOINT/BURSA W/O US Reviewed 12/06/2012 12:00 AM Kenalog, Per 10 Mg [facility]#0156-5426-64 Reviewed 12/22/2012 12:00 AM TOTAL CORTISOL Reviewed 04/26/2013 12:00 AM DRAIN/INJ JOINT/BURSA W/O US Reviewed 04/26/2013 12:00 AM Kenalog, Per 10 Mg [facility]#8793-3446-43 Reviewed 05/10/2013 12:00 AM DRAIN/INJ JOINT/BURSA W/O US Reviewed 05/10/2013 12:00 AM Kenalog, Per 10 Mg [facility]#8366-5147-08 Reviewed 05/10/2013 12:00 AM DRAIN/INJ JOINT/BURSA W/O US Reviewed 05/10/2013 12:00 AM Kenalog, Per 10 Mg [facility]#6161-0187-06 Reviewed 05/28/2013 12:00 AM MAMMOGRAM SCREENING Reviewed [...] 03/05/2014 12:00 AM Kenalog, Per 10 Mg [facility]#8627-0640-72 Reviewed 04/05/2014 12:00 AM COMPLETE CBC W/AUTO [...] Policy Group Number Start Date Gpa Gpa [id number] Saturday, 2015 [employer] [place] [id number] Saturday, 2009 [employer] [place] [id number] Wednesday, 2009 History of Encounters Visit Date [...] DO 04/09/2015 Office visit Cass BRAY 04/01/2015 [facility] Dinesh Zhu MD 04/01/2015 Office visit Brannon Manuel DO 03/10/2015 Office visit Cass BRAY 02/25/2015 Office visit Cass BRAY 02/05/2015 Nurse visit Cass BRAY 12/17/2014 [facility] Dinesh Zhu MD 12/17/2014 Office visit [...] 11/24/2012 Office visit Regina Mcnally APRN 10/12/2012 [facility] Anirudh Conway MD 10/10/2012 Office visit Brannon Jackson DO 09/18/2012 Office visit Anirudh Conway MD 09/01/2012 Office visit Brannon Jackson DO 08/21/2012 Office visit Brannon Jackson DO 08/01/2012 Office visit Brannon Jackson DO 07/11/2012 Office visit Regina Mcnally BACK UP SCAN COORDINATOR 06/14/2012 Office visit Anirudh Conway MD [...] Jackson DO 08/18/2010 Office visit Regina Mcnally BACK UP SCAN COORDINATOR 02/03/2010 Office visit Brannon Jackson DO 12/02/2009 Office visit Brannon Jackson DO 06/27/2009 Office visit Brannon Jackson DO
--- OUTSIDE RECORDS SUMMARY | 2018-10-25 10:03 | XMS REPORT ---
Author Author Brannon Jackson [facility] Address [address] [place], [place] [id number] Care Team Providers Care Treasury Director Name Role Phone Brannon Jackson PCP Brannon Jackson PreferredProvider Allergies and Adverse Reactions Name Reaction Notes promethazine vomiting Zofran vomiting Plan of Treatment Planned Activity Comments Planned Date Planned Time Plan/Goal MRI pelvis and hip left wo contrast 08/01/2015 12:00 AM MRI THORACIC SPINE W/O CONTRAST 12/15/2016 12:00 AM MRI LUMBAR SPINE W/O CONTRAST 12/15/2016 12:00 AM Knee 3Views - MOB 12/02/2017 12:00 AM Ganglion cyst right hand 12/14/2016 2:30 PM Medications Active Name Start Date Estimated Completion Date SIG Comments Multivitamin, Hair, Skin,and Nails one tablet daily cane miscellaneous device 09/01/2015 use as directed single point mckeon Nehemiahumet 50-1,000 mg oral tablet 02/21/2017 02/16/2018 take [...] oral tablets,dose pack 11/09/2017 take as directed [employer] VerWARSTUFF miscellaneous strip 11/11/2017 Test glucose 4 times a day Dx :e11.65 gabapentin 300 mg oral capsule 11/11/2017 Take 1 capsule in am and 2 capsules in pm Name Start Date Expiration Date SIG Comments [...] 2 times per day for 7 days [place] Thyroid 120 mg oral tablet 12/14/2012 12/09/2013 [...] 12/13/2011 12:00 AM Kenalog per 10Mg Im-[facility]#[address]-80(Man) Reviewed 12/23/2011 12:00 AM DRAIN/INJ JOINT/BURSA W/O US Reviewed 12/23/2011 12:00 AM Kenalog 40 Mg Im-[facility]#7041-3330-52 Reviewed 11/19/2016 12:00 AM X-RAY EXAM OF HAND Reviewed 01/19/2017 12:00 AM COMPLETE CBC W/AUTO DIFF WBC Reviewed 01/19/2017 12:00 AM COMPREHEN METABOLIC PANEL Reviewed 01/19/2017 12:00 AM GLYCOSYLATED HEMOGLOBIN TEST Reviewed 05/25/2012 12:00 AM INJ TRIGGER POINT 1/2 MUSCL Reviewed 05/25/2012 12:00 AM Kenalog, Per 10 Mg [facility]#4964-2644-98 Reviewed 06/14/2012 12:00 AM DRAIN/INJ JOINT/BURSA W/O US Reviewed 06/14/2012 12:00 AM Kenalog, Per 10 Mg [facility]#4837-9581-27 Reviewed 05/09/2017 12:00 AM MAMMOGRAPHY SCREENING, DIGITAL Reviewed 07/11/2012 12:00 AM THER/PROPH/DIAG INJ SC/IM Reviewed 07/11/2012 12:00 AM Decadron 1 mg [facility]#[id number] (Manuel) Reviewed 07/11/2012 12:00 AM Depo-Medrol 80 mg [facility]#[id number]-Rhlamfum Reviewed 08/21/2012 12:00 AM ASSAY CARBOXYHB QUANT Reviewed 09/01/2017 12:00 AM RADIOLOGIC EXAMINATION KNEE 1/2 VIEWS Reviewed 09/18/2012 12:00 AM DRAIN/INJ JOINT/BURSA W/O US Reviewed 09/18/2012 12:00 AM Kenalog, Per 10 Mg [facility]#9634-8408-35 Reviewed 10/25/2017 12:00 AM RADIOLOGIC EXAMINATION KNEE 3 VIEWS Reviewed 10/13/2012 12:00 AM COMPREHEN METABOLIC PANEL Reviewed 10/13/2012 12:00 AM LIPID PANEL Reviewed 10/13/2012 12:00 AM GLYCOSYLATED HEMOGLOBIN TEST Reviewed 10/13/2012 12:00 AM MICROALBUMIN SEMIQUANT Reviewed 11/09/2017 12:00 AM RADEX SPINE LUMBOSACRAL 2/3 VIEWS Reviewed 12/02/2017 12:00 AM Decadron 8mg Injection Reviewed 12/02/2017 12:00 AM Depo-Medrol 80mg Injection Reviewed 04/15/2010 12:00 AM MAMMOGRAM SCREENING Reviewed 12/06/2012 12:00 AM DRAIN/INJ JOINT/BURSA W/O US Reviewed 12/06/2012 12:00 AM Kenalog, Per 10 Mg [facility]#5909-2474-57 Reviewed 12/22/2012 12:00 AM TOTAL CORTISOL Reviewed 04/26/2013 12:00 AM DRAIN/INJ JOINT/BURSA W/O US Reviewed 04/26/2013 12:00 AM Kenalog, Per 10 Mg [facility]#4990-4778-11 Reviewed 05/10/2013 12:00 AM DRAIN/INJ JOINT/BURSA W/O US Reviewed 05/10/2013 12:00 AM Kenalog, Per 10 Mg [facility]#5608-4377-25 Reviewed 05/10/2013 12:00 AM DRAIN/INJ JOINT/BURSA W/O US Reviewed 05/10/2013 12:00 AM Kenalog, Per 10 Mg [facility]#2491-4595-19 Reviewed 05/28/2013 12:00 AM MAMMOGRAM SCREENING Reviewed [...] 03/05/2014 12:00 AM Kenalog, Per 10 Mg [facility]#0943-2034-89 Reviewed 04/05/2014 12:00 AM COMPLETE CBC W/AUTO [...] Start Date [facility] Gpa [id number] Saturday, 2015 [employer] [place] [id number] Saturday, 2009 [employer] [place] [id number] Wednesday, 2009 History of Encounters Visit Date Visit Type Provider 12/02/2017 Office visit Brannon Jackson DO 11/11/2017 Office visit Brannon Jackson DO 11/09/2017 Office visit Harjinder Paiz PA-C 10/28/2017 Office visit Lakia Reina APRN 10/25/2017 Office visit Regina Mcnally CABLE STRANDER 10/05/2017 Office visit Regina Mcnally CABLE STRANDER 09/01/2017 Office visit Brannon Manuel DO 06/29/2017 Office visit Karyna Gilbert CABLE STRANDER 06/18/2017 Office visit Karyna Gilbert CABLE STRANDER 05/09/2017 Office visit Brannon Simpsonte DO 03/08/2017 Office visit Brannon Manuel DO 01/25/2017 Office visit Brannon Manuel DO 01/19/2017 Office visit Regina Mcnally CABLE STRANDER 01/04/2017 Procedures Reagan Lehman DO 12/24/2016 Office visit Brannon Manuel DO 12/23/2016 Surgery Reagan Bouman DO 12/14/2016 Office visit Reagan Bouman DO 11/25/2016 Office visit Brannon Manuel DO 11/19/2016 Office visit Sandra Yoan CABLE STRANDER 11/02/2016 Office visit Lakia Reina CABLE STRANDER 09/09/2016 Office visit Brannon Manuel DO 05/18/2016 [...] BRAY 02/05/2015 Nurse visit Cass BRAY 12/17/2014 [facility] Dinesh Zhu MD 12/17/2014 Office visit Brannon Manuel DO 12/12/2014 Office visit Cass BRAY 10/29/2014 Office visit Cass ARCINIEGAP 10/02/2014 Office visit Cass ARCINIEGAP 09/20/2014 Office visit Brannon Manuel DO 09/05/2014 Office visit Cass ARCINIEGAP 07/29/2014 Office visit Cass ARCINIEGAP 07/18/2014 Office visit Brannon Jackson DO 07/03/2014 Office visit Rob Ruiz CABLE STRANDER 06/11/2014 Office visit Cass ARCINIEGAP 04/29/2014 Office visit Cass ARCINIEGAP 04/29/2014 Office visit Brannon Jackson DO 04/05/2014 Office visit Harjinder Paiz PA-C 02/25/2014 Office visit Cass ARCINIEGAP 01/02/2014 Office visit Cass BRAY 12/18/2013 Office visit Cass BRAY 09/13/2013 Office visit Brannon Jackson DO 08/27/2013 Office visit Regina Mcnally CABLE STRANDER 08/17/2013 Office visit Ray Tripathi CABLE STRANDER 05/21/2013 Office visit Brannon Jackson DO 05/10/2013 Office visit Anirudh Conway MD 04/26/2013 Office visit Aniurdh Conway MD 12/22/2012 Office visit Brannon Jackson DO 12/14/2012 [facility] Sandra Ca MD 12/12/2012 Office visit Brannon Jackson DO 12/12/2012 [facility] Sandra Ca MD 12/06/2012 Office visit Anirudh Conway MD 11/24/2012 Office visit Regina Mcnally CABLE STRANDER 10/12/2012 [facility] Anirudh Conway MD 10/10/2012 Office visit Brannon Jackson DO 09/18/2012 Office visit Anirudh Conway MD 09/01/2012 Office visit Brannon Jackson DO 08/21/2012 Office visit Brannon Jackson DO 08/01/2012 Office visit Brannon Jackson DO 07/11/2012 Office visit Regina Mcnally CABLE STRANDER 06/14/2012 Office visit Anirudh Conway MD 05/25/2012 Office visit Anirudh Conawy MD 05/04/2012 Office visit Brannon Jackson DO [...]
--- OUTSIDE RECORDS SUMMARY | 2018-10-25 10:05 | XMS REPORT ---
Author Author Brannon Jackson [facility] Address [address] [place], [place] [phone] Care Team Providers Care Clinical Lab Clerk Name Role Phone Brannon Jackson PCP [...] 2 times per day for 7 days [place] Thyroid 120 mg oral tablet 12/14/2012 12/09/2013 [...] 12/13/2011 12:00 AM Kenalog per 10Mg Im-[facility]#[address]-93(Man) Reviewed 12/23/2011 12:00 AM DRAIN/INJ JOINT/BURSA W/O US Reviewed 12/23/2011 12:00 AM Kenalog 40 Mg Im-[facility]#8459-1525-16 Reviewed 11/19/2016 12:00 AM X-RAY EXAM OF HAND Reviewed 01/19/2017 12:00 AM COMPLETE CBC W/AUTO DIFF WBC Reviewed 01/19/2017 12:00 AM COMPREHEN METABOLIC PANEL Reviewed 01/19/2017 12:00 AM GLYCOSYLATED HEMOGLOBIN TEST Reviewed 05/25/2012 12:00 AM INJ TRIGGER POINT 1/2 MUSCL Reviewed 05/25/2012 12:00 AM Kenalog, Per 10 Mg [facility]#1252-4456-73 Reviewed 06/14/2012 12:00 AM DRAIN/INJ JOINT/BURSA W/O US Reviewed 06/14/2012 12:00 AM Kenalog, Per 10 Mg [facility]#3491-2396-55 Reviewed 07/11/2012 12:00 AM THER/PROPH/DIAG INJ SC/IM Reviewed 07/11/2012 12:00 AM Decadron 1 mg [facility]#[id number] (Manuel) Reviewed 07/11/2012 12:00 AM Depo-Medrol 80 mg [facility]#[id number]-Vncrpgmu Reviewed 08/21/2012 12:00 AM ASSAY CARBOXYHB QUANT Reviewed 09/18/2012 12:00 AM DRAIN/INJ JOINT/BURSA W/O US Reviewed 09/18/2012 12:00 AM Kenalog, Per 10 Mg [facility]#8593-9650-33 Reviewed 10/13/2012 12:00 AM COMPREHEN METABOLIC PANEL Reviewed 10/13/2012 12:00 AM LIPID PANEL Reviewed 10/13/2012 12:00 AM GLYCOSYLATED HEMOGLOBIN TEST Reviewed 10/13/2012 12:00 AM MICROALBUMIN SEMIQUANT Reviewed 04/15/2010 12:00 AM MAMMOGRAM SCREENING Reviewed 12/06/2012 12:00 AM DRAIN/INJ JOINT/BURSA W/O US Reviewed 12/06/2012 12:00 AM Kenalog, Per 10 Mg [facility]#1721-1881-26 Reviewed 12/22/2012 12:00 AM TOTAL CORTISOL Reviewed 04/26/2013 12:00 AM DRAIN/INJ JOINT/BURSA W/O US Reviewed 04/26/2013 12:00 AM Kenalog, Per 10 Mg [facility]#8580-3674-52 Reviewed 05/10/2013 12:00 AM DRAIN/INJ JOINT/BURSA W/O US Reviewed 05/10/2013 12:00 AM Kenalog, Per 10 Mg [facility]#9574-0179-76 Reviewed 05/10/2013 12:00 AM DRAIN/INJ JOINT/BURSA W/O US Reviewed 05/10/2013 12:00 AM Kenalog, Per 10 Mg [facility]#3793-6632-72 Reviewed 05/28/2013 12:00 AM MAMMOGRAM SCREENING Reviewed [...] Kenalog, Per 10 Mg [facility]#3249-0639-15 Reviewed 04/05/2014 12:00 AM COMPLETE CBC W/AUTO [...] Policy Number Policy Group Number Start Date [facility] Gpa [id number] Saturday, 2015 [employer] [facility] [id number] Saturday, 2009 [employer] [facility] [id number] Wednesday, 2009 History of Encounters Visit Date Visit Type Provider 03/08/2017 Office visit Brannon Jackson DO 01/25/2017 Office visit Brannon Jackson DO 01/19/2017 Office visit Regina Mcnally GREASE AND TALLOW PUMPER 01/04/2017 Procedures Reagan Lehman DO 12/24/2016 Office visit Brannon Simpsonte DO 12/23/2016 Surgery Reagan Lehman DO 12/14/2016 Office visit Reagan Lehman DO 11/25/2016 Office visit Brannon Jackson DO 11/19/2016 Office visit Sandra Keanedez GREASE AND TALLOW PUMPER 11/02/2016 Office visit Lakia Reina GREASE AND TALLOW PUMPER 09/09/2016 Office visit Brannon Jackson DO 05/18/2016 Office visit Brannon Simpsonte DO 05/05/2016 Office visit 05/05/2016 Office visit Brannon Simpsonte DO 02/05/2016 Office visit Brannon Jackson DO [...] Jackson DO 09/05/2014 Office visit Cass Arellano HAND SPRING REPAIRER 07/29/2014 Office visit Cass Arellano HAND SPRING REPAIRER 07/18/2014 Office visit Brannon Manuel DO 07/03/2014 Office visit Rob Downingran GREASE AND TALLOW PUMPER 06/11/2014 Office visit Cass Arellano HAND SPRING REPAIRER 04/29/2014 Office visit Cass Arellano HAND SPRING REPAIRER 04/29/2014 Office visit Brannon Manuel DO 04/05/2014 Office visit Harjinder Paiz PA-C 02/25/2014 Office visit Cass Arellano HAND SPRING REPAIRER 01/02/2014 Office visit Cass Arellano HAND SPRING REPAIRER 12/18/2013 Office visit Cass Arellano HAND SPRING REPAIRER 09/13/2013 Office visit Brannon Manuel DO 08/27/2013 Office visit Regina Mcnally GREASE AND TALLOW PUMPER 08/17/2013 Office visit Ray Tripathi GREASE AND TALLOW PUMPER 05/21/2013 Office visit Brannon Jackson DO 05/10/2013 Office visit Anirudh Conway MD 04/26/2013 Office visit Anirudh Conway MD 12/22/2012 Office visit Brannon Jackson DO 12/14/2012 [facility] Sandra Ca MD 12/12/2012 Office visit Brannon Jackson DO 12/12/2012 [facility] Sandra Ca MD 12/06/2012 Office visit Anirudh Conway MD 11/24/2012 Office visit Regina Mcnally GREASE AND TALLOW PUMPER 10/12/2012 [facility] Anirudh Conway MD 10/10/2012 Office visit Brannon Jackson DO 09/18/2012 Office visit Anirudh Conway MD 09/01/2012 Office visit Brannon Jackson DO 08/21/2012 Office visit Brannon Jackson DO 08/01/2012 Office visit Brannon Jackson DO 07/11/2012 Office visit Regina Mcnally GREASE AND TALLOW PUMPER 06/14/2012 Office visit Anirudh Conway MD 05/25/2012 [...]
--- OUTSIDE RECORDS SUMMARY | 2018-10-25 10:07 | XMS REPORT ---
Author Author Cass Arellano [facility] Address [address] [place], [place] [address] Care Team Providers Care Reinsurance Clerk Name Role Phone Cass Arellano PCP Allergies [...] 3 mo supply for mail order through [employer] amitriptyline 10 mg oral tablet 08/29/2014 11/22/2015 [...] 2 times per day for 7 days [place] Thyroid 120 mg oral tablet 12/14/2012 12/09/2013 [...] per 10Mg Im-[facility]#[address]-80(Man) Reviewed 12/23/2011 12:00 AM DRAIN/INJ JOINT/BURSA W/O US Reviewed 12/23/2011 12:00 AM Kenalog 40 Mg Im-[facility]#8715-0765-37 Reviewed 05/25/2012 12:00 AM INJ TRIGGER POINT 1/2 MUSCL Reviewed 05/25/2012 12:00 AM Kenalog, Per 10 Mg [facility]#2358-5239-04 Reviewed 06/14/2012 12:00 AM DRAIN/INJ JOINT/BURSA W/O US Reviewed 06/14/2012 12:00 AM Kenalog, Per 10 Mg [facility]#3680-4713-71 Reviewed 07/11/2012 12:00 AM THER/PROPH/DIAG INJ SC/IM Reviewed 07/11/2012 12:00 AM Decadron 1 mg [facility]#[id number] (Manuel) Reviewed 07/11/2012 12:00 AM Depo-Medrol 80 mg [facility]#15858617979-Ndoavgve Reviewed 08/21/2012 12:00 AM ASSAY CARBOXYHB QUANT Reviewed 09/18/2012 12:00 AM DRAIN/INJ JOINT/BURSA W/O US Reviewed 09/18/2012 12:00 AM Kenalog, Per 10 Mg [facility]#7163-7164-07 Reviewed 10/13/2012 12:00 AM COMPREHEN METABOLIC PANEL Reviewed 10/13/2012 12:00 AM LIPID PANEL Reviewed 10/13/2012 12:00 AM GLYCOSYLATED HEMOGLOBIN TEST Reviewed 10/13/2012 12:00 AM MICROALBUMIN SEMIQUANT Reviewed 04/15/2010 12:00 AM MAMMOGRAM SCREENING Reviewed 12/06/2012 12:00 AM DRAIN/INJ JOINT/BURSA W/O US Reviewed 12/06/2012 12:00 AM Kenalog, Per 10 Mg [facility]#2795-1687-96 Reviewed 12/22/2012 12:00 AM TOTAL CORTISOL Reviewed 04/26/2013 12:00 AM DRAIN/INJ JOINT/BURSA W/O US Reviewed 04/26/2013 12:00 AM Kenalog, Per 10 Mg [facility]#5275-1417-52 Reviewed 05/10/2013 12:00 AM DRAIN/INJ JOINT/BURSA W/O US Reviewed 05/10/2013 12:00 AM Kenalog, Per 10 Mg [facility]#1067-3814-26 Reviewed 05/10/2013 12:00 AM DRAIN/INJ JOINT/BURSA W/O US Reviewed 05/10/2013 12:00 AM Kenalog, Per 10 Mg [facility]#0853-2769-90 Reviewed 05/28/2013 12:00 AM MAMMOGRAM SCREENING Reviewed [...] Kenalog, Per 10 Mg [facility]#4876-9880-15 Reviewed 04/05/2014 12:00 AM COMPLETE CBC W/AUTO [...] BILI 0.90 mg/dLCALCIUM 9.50 mg/dLeGFR >60 mL/min/1.73 [id number] 18.0 U/L 01/02/2014 10:02 AM GLUCOSE 134.0 [...] 4:20PM Cervicalgia b 2011 4:20PM Trochanteric Bursitis b 13 2011 9:26AM Insomnia Dec 16 2011 [...] Number Start Date [employer] [place] [id number] Wednesday, 2009 [employer] [place] [id number] Saturday, 2009 History of Encounters Visit Date Visit Type Provider 08/01/2015 Office visit Cass BRAY 07/02/2015 Office visit Cass BRAY 06/04/2015 Office visit Cass BRAY 05/15/2015 Office visit Brannon Jackson DO 05/08/2015 Nurse visit Cass BRAY 04/28/2015 Office visit Brannon Manuel DO 04/09/2015 [...] Brannon Jackson DO 07/11/2012 Office visit Regina Uli HEALTHCARE CUSTOMER SERVICE 06/14/2012 Office visit Anirudh Conway MD 05/25/2012 [...] Brannon Jackson DO 08/18/2010 Office visit Regina Uli HEALTHCARE CUSTOMER SERVICE 02/03/2010 Office visit Brannon Jackson DO 12/02/2009 Office visit Brannon Jackson DO 06/27/2009 Office visit Brannon Jackson DO
--- OUTSIDE RECORDS SUMMARY | 2018-10-25 10:09 | XMS REPORT ---
Author Author Brannon Jackson [facility] Address [address] [place], [place] [id number] Care Team Providers Care New Accounts Banking Representative Name Role Phone Brannon Jackson PCP [...] times per day for 7 days [place] Thyroid 120 mg oral tablet 12/14/2012 [...] Reviewed 12/13/2011 12:00 AM Kenalog per 10Mg [facility]#[address]-60(Man) Reviewed 12/23/2011 12:00 AM DRAIN/INJ JOINT/BURSA W/O US Reviewed 12/23/2011 12:00 AM Kenalog 40 Mg [facility]#7693-8733-97 Reviewed 11/19/2016 12:00 AM X-RAY EXAM OF HAND Reviewed 01/19/2017 12:00 AM COMPLETE CBC W/AUTO DIFF WBC Reviewed 01/19/2017 12:00 AM COMPREHEN METABOLIC PANEL Reviewed 01/19/2017 12:00 AM GLYCOSYLATED HEMOGLOBIN TEST Reviewed 05/25/2012 12:00 AM INJ TRIGGER POINT 1/2 MUSCL Reviewed 05/25/2012 12:00 AM Kenalog, Per 10 Mg [facility]#3817-7749-03 Reviewed 06/14/2012 12:00 AM DRAIN/INJ JOINT/BURSA W/O US Reviewed 06/14/2012 12:00 AM Kenalog, Per 10 Mg [facility]#7532-2248-94 Reviewed 05/09/2017 12:00 AM MAMMOGRAPHY SCREENING, DIGITAL Reviewed 07/11/2012 12:00 AM THER/PROPH/DIAG INJ SC/IM Reviewed 07/11/2012 12:00 AM Decadron 1 mg [facility]#[id number] (Manuel) Reviewed 07/11/2012 12:00 AM Depo-Medrol 80 mg [facility]#[id number]-Nvsobycd Reviewed 08/21/2012 12:00 AM ASSAY CARBOXYHB QUANT Reviewed 09/01/2017 12:00 AM RADIOLOGIC EXAMINATION KNEE 1/2 VIEWS Reviewed 09/18/2012 12:00 AM DRAIN/INJ JOINT/BURSA W/O US Reviewed 09/18/2012 12:00 AM Kenalog, Per 10 Mg [facility]#0201-2647-00 Reviewed 10/13/2012 12:00 AM COMPREHEN METABOLIC PANEL Reviewed 10/13/2012 12:00 AM LIPID PANEL Reviewed 10/13/2012 12:00 AM GLYCOSYLATED HEMOGLOBIN TEST Reviewed 10/13/2012 12:00 AM MICROALBUMIN SEMIQUANT Reviewed 04/15/2010 12:00 AM MAMMOGRAM SCREENING Reviewed 12/06/2012 12:00 AM DRAIN/INJ JOINT/BURSA W/O US Reviewed 12/06/2012 12:00 AM Kenalog, Per 10 Mg [facility]#9973-4564-24 Reviewed 12/22/2012 12:00 AM TOTAL CORTISOL Reviewed 04/26/2013 12:00 AM DRAIN/INJ JOINT/BURSA W/O US Reviewed 04/26/2013 12:00 AM Kenalog, Per 10 Mg [facility]#2168-7509-25 Reviewed 05/10/2013 12:00 AM DRAIN/INJ JOINT/BURSA W/O US Reviewed 05/10/2013 12:00 AM Kenalog, Per 10 Mg [facility]#4238-1974-58 Reviewed 05/10/2013 12:00 AM DRAIN/INJ JOINT/BURSA W/O US Reviewed 05/10/2013 12:00 AM Kenalog, Per 10 Mg [facility]#8641-6328-55 Reviewed 05/28/2013 12:00 AM MAMMOGRAM SCREENING Reviewed [...] 03/05/2014 12:00 AM Kenalog, Per 10 Mg [facility]#8219-5737-50 Reviewed 04/05/2014 12:00 AM COMPLETE CBC W/AUTO [...] Policy Number Policy Group Number Start Date [facility] [id number] Saturday, 2015 [employer] [facility] [id number] Saturday, 2009 [employer] [place] [id number] Wednesday, 2009 History of Encounters Visit Date Visit Type Provider 09/01/2017 Office visit Brannon Jackson DO 06/29/2017 Office visit Karyna Giblert [facility] 06/18/2017 Office visit Karyna Gilbert [facility] 05/09/2017 Office visit Brannon Jackson DO 03/08/2017 Office visit Brannon Jackson DO 01/25/2017 Office visit Brannon Jackson DO 01/19/2017 Office visit Regina Mcnally [facility] 01/04/2017 Procedures Reagan Lehman DO 12/24/2016 Office visit Brannon Jackson DO 12/23/2016 Surgery Reagan Lehman DO 12/14/2016 Office visit Reagan Lehman DO 11/25/2016 Office visit Brannon Jackson DO 11/19/2016 Office visit Sandra Yoan [facility] 11/02/2016 Office visit Lakia Reina [facility] 09/09/2016 Office visit Brannon Jackson DO 05/18/2016 [...] Ruiz APRN 06/11/2014 Office visit Cass Arellano ORGAN PIPE FINISHER 04/29/2014 Office visit Cassrosamaria Arellano ORGAN PIPE FINISHER 04/29/2014 Office visit Brannon Manuel DO 04/05/2014 Office visit Harjinder Paiz PA-C 02/25/2014 Office visit Cass Arellano ORGAN PIPE FINISHER 01/02/2014 Office visit Cass Arellano ORGAN PIPE FINISHER 12/18/2013 Office visit Cass MMonse Arellano ORGAN PIPE FINISHER 09/13/2013 Office visit Brannon Jackson DO 08/27/2013 Office visit Regina Mcnally [facility] 08/17/2013 Office visit Ray Tripathi [facility] 05/21/2013 Office visit Brannon Jackson DO 05/10/2013 Office visit Anirudh Conway MD 04/26/2013 Office visit Anirudh Conway MD 12/22/2012 Office visit Brannon Jackson DO 12/14/2012 [facility] Sandra Ca MD 12/12/2012 Office visit Brannon Jackson DO 12/12/2012 [facility] Sandra Ca MD 12/06/2012 Office visit Anirudh Conway MD 11/24/2012 Office visit Regina Mcnally [facility] 10/12/2012 [facility] Anirudh Conway MD 10/10/2012 Office visit Brannon Jackson DO 09/18/2012 Office visit Anirudh Conway MD 09/01/2012 Office visit Brannon Jackson DO 08/21/2012 Office visit Brannon Jackson DO 08/01/2012 Office visit Brannon Jackson DO 07/11/2012 Office visit Regina Mcnally [facility] 06/14/2012 Office visit Anirudh Conway MD 05/25/2012 [...]
--- OUTSIDE RECORDS SUMMARY | 2018-10-25 10:11 | XMS REPORT ---
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 in History of [...] BILI 0.90 mg/dLCALCIUM 9.50 mg/dLeGFR >60 mL/min/1.73 [id number] 18.0 U/L 01/02/2014 10:02 AM GLUCOSE 134.0 [...] Policy Number Policy Group Number Start Date [facility] [id number] Wednesday, 2009 [facility] [id number] Saturday, 2009 History of Encounters Visit Date [...] Conway MD 11/24/2012 Office visit Regina Mcnally FOOD TRUCK CATERER 10/12/2012 [facility] Anirudh Conway MD 10/10/2012 Office visit Brannon Jackson DO 09/18/2012 Office visit Anirudh Conway MD 09/01/2012 Office visit Brannon Manuel DO 08/21/2012 Office visit Brannon Manuel DO 08/01/2012 Office visit Brannon Simpsonte DO 07/11/2012 Office visit Regina Mcnally FOOD TRUCK CATERER 06/14/2012 Office visit Anirudh Conway MD 05/25/2012 [...] 10/19/2011 Office visit Brannon Manuel DO 10/19/2011 [facility] Anderson Dawkins MD 10/07/2011 Office visit Brannon Manuel DO 04/27/2011 Office visit Brannon Manuel DO 04/16/2011 Office visit Brannon Manuel DO 12/18/2010 Office visit Brannon Manuel DO 11/17/2010 Office visit Brannon Manuel DO 10/08/2010 Office visit Brannon Manuel DO 08/18/2010 Office visit Regina cMnally FOOD TRUCK CATERER 02/03/2010 Office visit Brannon Manuel DO 12/02/2009 Office visit Brannon Manuel DO 06/27/2009 Office visit Brannon Simpsonte DO
--- OUTSIDE RECORDS SUMMARY | 2018-10-25 10:13 | XMS REPORT ---
Author Author Brannon Jackson [facility] Address [address] [place], [place] [id number] Care Team Providers Care Minute Clerk Name Role Phone Brannon Jackson PCP [...] (325 mg) by oral route once daily amitriptyline 10 mg oral tablet 05/18/2016 05/13/2017 [...] route once daily for 90 days alprazolam 0.25 mg oral tablet 07/07/2016 08/06/2016 take 1 tablet (0.25 mg) by oral route 2 times per day as needed hydrocodone-acetaminophen 10-325 mg oral tablet 07/08/2016 08/07/2016 take 1 tablet by oral route every [...] 2 times per day for 7 days [place] Thyroid 120 mg oral tablet 12/14/2012 [...] 12:00 AM Kenalog per 10Mg Im-[facility]#[address]-64(Man) Reviewed 12/23/2011 12:00 AM DRAIN/INJ JOINT/BURSA W/O US Reviewed 12/23/2011 12:00 AM Kenalog 40 Mg [facility]#6343-0480-74 Reviewed 05/25/2012 12:00 AM INJ TRIGGER POINT 1/2 MUSCL Reviewed 05/25/2012 12:00 AM Kenalog, Per 10 Mg [facility]#4269-9668-23 Reviewed 06/14/2012 12:00 AM DRAIN/INJ JOINT/BURSA W/O US Reviewed 06/14/2012 12:00 AM Kenalog, Per 10 Mg [facility]#5625-5832-73 Reviewed 07/11/2012 12:00 AM THER/PROPH/DIAG INJ SC/IM Reviewed 07/11/2012 12:00 AM Decadron 1 mg [facility]#[id number] (Manuel) Reviewed 07/11/2012 12:00 AM Depo-Medrol 80 mg [facility]#[id number]-Hevqdlvl Reviewed 08/21/2012 12:00 AM ASSAY CARBOXYHB QUANT Reviewed 09/18/2012 12:00 AM DRAIN/INJ JOINT/BURSA W/O US Reviewed 09/18/2012 12:00 AM Kenalog, Per 10 Mg [facility]#1272-6441-88 Reviewed 10/13/2012 12:00 AM COMPREHEN METABOLIC PANEL Reviewed 10/13/2012 12:00 AM LIPID PANEL Reviewed 10/13/2012 12:00 AM GLYCOSYLATED HEMOGLOBIN TEST Reviewed 10/13/2012 12:00 AM MICROALBUMIN SEMIQUANT Reviewed 04/15/2010 12:00 AM MAMMOGRAM SCREENING Reviewed 12/06/2012 12:00 AM DRAIN/INJ JOINT/BURSA W/O US Reviewed 12/06/2012 12:00 AM Kenalog, Per 10 Mg [facility]#6825-6506-99 Reviewed 12/22/2012 12:00 AM TOTAL CORTISOL Reviewed 04/26/2013 12:00 AM DRAIN/INJ JOINT/BURSA W/O US Reviewed 04/26/2013 12:00 AM Kenalog, Per 10 Mg [facility]#6621-8626-44 Reviewed 05/10/2013 12:00 AM DRAIN/INJ JOINT/BURSA W/O US Reviewed 05/10/2013 12:00 AM Kenalog, Per 10 Mg [facility]#4021-6818-07 Reviewed 05/10/2013 12:00 AM DRAIN/INJ JOINT/BURSA W/O US Reviewed 05/10/2013 12:00 AM Kenalog, Per 10 Mg [facility]#3764-9381-22 Reviewed 05/28/2013 12:00 AM MAMMOGRAM SCREENING Reviewed [...] AM Kenalog, Per 10 Mg [facility]#0877-0537-80 Reviewed 04/05/2014 12:00 AM COMPLETE CBC W/AUTO [...] BILI 0.90 mg/dLCALCIUM 9.50 mg/dLeGFR >60 mL/min/1.73 [id number] 18.0 U/L 01/02/2014 10:02 AM GLUCOSE 134.0 [...] 12.0 ug/mLEstim. Avg Glu (eAG) 146 mg/dL 05/05/2016 10:20 AM Est Avg Glucose 185.8 mg/dLMICROALBUMIN UR 14.0 ug/ mLTRIGLYCERIDES 146.0 mg/dLCHOLESTEROL 185.0 mg/dLHDL 43.0 mg/dLLDL (CALC) 113.0 mg/dLVITAMIN B12 442.0 pg/mLGLUCOSE 145.0 [...] 9:26AM Insomnia b 16 2011 3:26PM Dermatitis Feb 16 2011 [...] Start Date [facility] Gpa [id number] Saturday, 2015 [employer] [facility] [id number] Saturday, 2009 [facility] [id number] Wednesday, 2009 History of Encounters Visit Date Visit Type Provider 05/18/2016 Office visit Brannon Tidwellburt BALTAZAR 05/05/2016 Office visit 05/05/2016 Office visit Brannon Tidwellburt BALTAZAR 02/05/2016 Office visit Brannon Tidwellburt BALTAZAR 12/09/2015 Voided Cass BRAY 10/13/2015 Office visit [...] Jackson DO 08/27/2013 Office visit Regina Mcnally HOSPICE LIAISON 08/17/2013 Office visit Ray Tripathi HOSPICE LIAISON 05/21/2013 Office visit Brannon Jackson DO 05/10/2013 Office visit Anirudh Conway MD 04/26/2013 Office visit Anirudh Conway MD 12/22/2012 Office visit Brannon Jackson DO 12/14/2012 [facility] Sandra Ca MD 12/12/2012 Office visit Brannon Jackson DO 12/12/2012 [facility] Sandra Ca MD 12/06/2012 Office visit Anirudh Conway MD 11/24/2012 Office visit Regina Mcnally HOSPICE LIAISON 10/12/2012 [facility] Anirudh Conway MD 10/10/2012 Office visit Brannon Jackson DO 09/18/2012 Office visit Anirudh Conway MD 09/01/2012 Office visit Brannon Jackson DO 08/21/2012 Office visit Brannon Jackson DO 08/01/2012 Office visit Brannon Jackson DO 07/11/2012 Office visit Regina Mcnally HOSPICE LIAISON 06/14/2012 Office visit Anirudh Conway MD 05/25/2012 [...]
--- OUTSIDE RECORDS SUMMARY | 2018-10-25 10:16 | XMS REPORT ---
Author Author Brannon Jackson [facility] Address [address] [place] [id number] Care Team Providers Care Digital Printer Operator Name Role Phone Brannon Jackson PCP [...] oral tablets,dose pack 11/09/2017 take as directed [employer] miscellaneous strip 11/11/2017 Test glucose 4 [...] ONCE DAILY hydrocodone-acetaminophen 10-325 mg oral tablet 03/02/2018 04/01/2018 take 1 tablet by oral route every [...] 7 days Cymbalta 30 mg oral capsule,delayed release(/EC) 12/23/2011 01/22/2012 take 1 capsule (30 mg) [...] 2 times per day for 7 days [place] Thyroid 120 mg oral tablet 12/14/2012 12/09/2013 [...] 5 days omeprazole 40 mg oral capsule,delayed release(/EC) 04/02/2015 03/27/2016 take 1 capsule (40 mg) [...] per 10Mg Im-[facility]#[address]-83(Man) Reviewed 12/23/2011 12:00 AM DRAIN/INJ JOINT/BURSA W/O US Reviewed 12/23/2011 12:00 AM Kenalog 40 Mg [facility]#5628-3808-64 Reviewed 11/19/2016 12:00 AM X-RAY EXAM OF HAND Reviewed 01/19/2017 12:00 AM COMPLETE CBC W/AUTO DIFF WBC Reviewed 01/19/2017 12:00 AM COMPREHEN METABOLIC PANEL Reviewed 01/19/2017 12:00 AM GLYCOSYLATED HEMOGLOBIN TEST Reviewed 05/25/2012 12:00 AM INJ TRIGGER POINT 1/2 MUSCL Reviewed 05/25/2012 12:00 AM Kenalog, Per 10 Mg [facility]#0278-0835-03 Reviewed 06/14/2012 12:00 AM DRAIN/INJ JOINT/BURSA W/O US Reviewed 06/14/2012 12:00 AM Kenalog, Per 10 Mg [facility]#3961-7301-77 Reviewed 05/09/2017 12:00 AM MAMMOGRAPHY SCREENING, DIGITAL Reviewed 07/11/2012 12:00 AM THER/PROPH/DIAG INJ SC/IM Reviewed 07/11/2012 12:00 AM Decadron 1 mg [facility]#[id number] (Manuel) Reviewed 07/11/2012 12:00 AM Depo-Medrol 80 mg [facility]#96604756724-Enouiead Reviewed 08/21/2012 12:00 AM ASSAY CARBOXYHB QUANT Reviewed 09/01/2017 12:00 AM RADIOLOGIC EXAMINATION KNEE 1/2 VIEWS Reviewed 09/18/2012 12:00 AM DRAIN/INJ JOINT/BURSA W/O US Reviewed 09/18/2012 12:00 AM Kenalog, Per 10 Mg [facility]#5569-0389-82 Reviewed 10/25/2017 12:00 AM RADIOLOGIC EXAMINATION KNEE [...] AM Kenalog, Per 10 Mg [facility]#5973-3499-87 Reviewed 12/22/2012 12:00 AM TOTAL CORTISOL Reviewed 04/26/2013 12:00 AM DRAIN/INJ JOINT/BURSA W/O US Reviewed 04/26/2013 12:00 AM Kenalog, Per 10 Mg [facility]#6855-5842-66 Reviewed 05/10/2013 12:00 AM DRAIN/INJ JOINT/BURSA W/O US Reviewed 05/10/2013 12:00 AM Kenalog, Per 10 Mg [facility]#7054-7382-61 Reviewed 05/10/2013 12:00 AM DRAIN/INJ JOINT/BURSA W/O US Reviewed 05/10/2013 12:00 AM Kenalog, Per 10 Mg [facility]#9048-0661-89 Reviewed 05/28/2013 12:00 AM MAMMOGRAM SCREENING Reviewed [...] AM Kenalog, Per 10 Mg [facility]#8588-9648-57 Reviewed 04/05/2014 12:00 AM COMPLETE CBC W/AUTO [...] Feb 2014 8:20AM Hyperlipidemia, mixed Feb 17 2014 8:20AM Hypertension Feb 17 2014 8:20AM Overactive bladder Feb 2014 8:20AM [...] Policy Group Number Start Date Gpa Gpa [id number] Saturday, 2015 [employer] [place] [id number] Saturday, 2009 [employer] [place] [id number] Wednesday, 2009 History of Encounters Visit Date Visit Type Provider 12/02/2017 Office visit Brannon Jackson DO 11/11/2017 Office visit Brannon Jackson DO 11/09/2017 Office visit Harjinder Paiz PA-C 10/28/2017 Office visit Lakia Reina METER SETTER 10/25/2017 Office visit Regina Mcnally METER SETTER 10/05/2017 Office visit Regina Mcnally METER SETTER 09/01/2017 Office visit Brannon Jackson DO 06/29/2017 Office visit Karyna Gilbert METER SETTER 06/18/2017 Office visit Karyna Gilbert METER SETTER 05/09/2017 Office visit Brannon Jackson DO 03/08/2017 Office visit Brannon Jackson DO 01/25/2017 Office visit Brannon Jackson DO 01/19/2017 Office visit Regina Mcnally METER SETTER 01/04/2017 Procedures Reagan Lehman DO 12/24/2016 Office visit Brannon Jackson DO 12/23/2016 Surgery Reagan Lehman DO 12/14/2016 Office visit Reagan Lehman DO 11/25/2016 Office visit Brannon Jackson DO 11/19/2016 Office visit Sandra Milton METER SETTER 11/02/2016 Office visit Lakia Reina METER SETTER 09/09/2016 Office visit Brannon Jackson DO 05/18/2016 [...] Manuel DO 07/03/2014 Office visit Rob Ruiz METER SETTER 06/11/2014 Office visit Cass BRAY 04/29/2014 Office visit Cass BRAY 04/29/2014 Office visit Brannon Manuel DO 04/05/2014 Office visit Harjinder Paiz PA-C 02/25/2014 Office visit Cass BRAY 01/02/2014 Office visit Cass BRAY 12/18/2013 Office visit Cass BRAY 09/13/2013 Office visit Brannon Jackson DO 08/27/2013 Office visit Regina Mcnally METER SETTER 08/17/2013 Office visit Ray Tripathi METER SETTER 05/21/2013 Office visit Brannon Jackson DO 05/10/2013 Office visit Anirudh Conway MD 04/26/2013 Office visit Anirudh Conway MD 12/22/2012 Office visit Brannon Jackson DO 12/14/2012 [facility] Sandra Ca MD 12/12/2012 Office visit Brannon Jackson DO 12/12/2012 [facility] Sandra Ca MD 12/06/2012 Office visit Anirudh Conway MD 11/24/2012 Office visit Regina Mcnally METER SETTER 10/12/2012 [facility] Anirudh Conway MD 10/10/2012 Office visit Brannon Jackson DO 09/18/2012 Office visit Anirudh Conway MD 09/01/2012 Office visit Brannon Jackson DO 08/21/2012 Office visit Brannon Jackson DO 08/01/2012 Office visit Brannon Jackson DO 07/11/2012 Office visit Regina Mcnally METER SETTER 06/14/2012 Office visit Anirudh Conway MD 05/25/2012 Office visit Anirudh Conway MD 05/04/2012 Office visit Brannon Jackson DO 12/23/2011 Office visit Anirudh Conway MD 12/16/2011 Office visit Brannon Jackson DO 12/06/2011 Office visit Anirudh Conway MD 11/11/2011 Office visit Brannon Jackson DO 10/28/2011 Office visit Brannon Jackson DO 10/22/2011 [facility] Valery Cerna MD 10/21/2011 [facility] Valery Cerna MD 10/19/2011 Office visit Brannon Jackson DO 10/19/2011 [facility] Anderson Dawkins MD 10/07/2011 Office visit [...]
--- OUTSIDE RECORDS SUMMARY | 2018-10-25 10:18 | XMS REPORT ---
Author Reagan Lopez [facility] Address [address] [place], [place] [address] Care Team Providers Care Asp Net Programmer Name Role Phone Reagan Lehman PCP Unavailable [...] 2 times per day for 7 days [place] Thyroid 120 mg oral tablet 12/14/2012 12/09/2013 [...] HC BMI BSA BMI Percentile O2 Sat(%) 01/04/2017 2:54:00 PM 156 mmHg 96 mmHg [...] 10Mg Im-[facility]#[address]-43(Man) Reviewed 12/23/2011 12:00 AM DRAIN/INJ JOINT/BURSA W/O US Reviewed 12/23/2011 12:00 AM Kenalog 40 Mg Im-[facility]#5152-0216-01 Reviewed 11/19/2016 12:00 AM X-RAY EXAM OF HAND Reviewed 05/25/2012 12:00 AM INJ TRIGGER POINT 1/2 MUSCL Reviewed 05/25/2012 12:00 AM Kenalog, Per 10 Mg [facility]#2913-2411-24 Reviewed 06/14/2012 12:00 AM DRAIN/INJ JOINT/BURSA W/O US Reviewed 06/14/2012 12:00 AM Kenalog, Per 10 Mg [facility]#1780-2327-31 Reviewed 07/11/2012 12:00 AM THER/PROPH/DIAG INJ SC/IM Reviewed 07/11/2012 12:00 AM Decadron 1 mg [facility]#[id number] (Manuel) Reviewed 07/11/2012 12:00 AM Depo-Medrol 80 mg [facility]#[id number]-Sgzrndku Reviewed 08/21/2012 12:00 AM ASSAY CARBOXYHB QUANT Reviewed 09/18/2012 12:00 AM DRAIN/INJ JOINT/BURSA W/O US Reviewed 09/18/2012 12:00 AM Kenalog, Per 10 Mg [facility]#9852-5571-33 Reviewed 10/13/2012 12:00 AM COMPREHEN METABOLIC PANEL Reviewed 10/13/2012 12:00 AM LIPID PANEL Reviewed 10/13/2012 12:00 AM GLYCOSYLATED HEMOGLOBIN TEST Reviewed 10/13/2012 12:00 AM MICROALBUMIN SEMIQUANT Reviewed 04/15/2010 12:00 AM MAMMOGRAM SCREENING Reviewed 12/06/2012 12:00 AM DRAIN/INJ JOINT/BURSA W/O US Reviewed 12/06/2012 12:00 AM Kenalog, Per 10 Mg [facility]#1877-3800-02 Reviewed 12/22/2012 12:00 AM TOTAL CORTISOL Reviewed 04/26/2013 12:00 AM DRAIN/INJ JOINT/BURSA W/O US Reviewed 04/26/2013 12:00 AM Kenalog, Per 10 Mg [facility]#5472-5269-60 Reviewed 05/10/2013 12:00 AM DRAIN/INJ JOINT/BURSA W/O US Reviewed 05/10/2013 12:00 AM Kenalog, Per 10 Mg [facility]#5821-2939-89 Reviewed 05/10/2013 12:00 AM DRAIN/INJ JOINT/BURSA W/O US Reviewed 05/10/2013 12:00 AM Kenalog, Per 10 Mg [facility]#7683-1935-78 Reviewed 05/28/2013 12:00 AM MAMMOGRAM SCREENING Reviewed [...] 03/05/2014 12:00 AM Kenalog, Per 10 Mg [facility]#6313-3906-58 Reviewed 04/05/2014 12:00 AM COMPLETE CBC W/AUTO [...] Cervicalgia Feb 2011 11:24AM Osteoarthritis of knee b 2011 [...] Number Policy Group Number Start Date [facility] [id number] Saturday, 2015 [employer] [place] [id number] Saturday, 2009 [employer] [place] [id number] Wednesday, 2009 History of Encounters Visit Date Visit Type Provider 01/04/2017 Procedures Reagan Lehman DO 12/24/2016 Office visit Brannon Jackson DO 12/23/2016 Surgery Reagan Lehman DO 12/14/2016 Office visit Reagan Lehman DO 11/25/2016 Office visit Brannon Jackson DO 11/19/2016 Office visit Sandra Milton RETOUCHER PHOTOENGRAVING 11/02/2016 Office visit Lakia Reina RETOUCHER PHOTOENGRAVING 09/09/2016 Office visit Brannon Jackson DO 05/18/2016 [...] visit Cass BRAY 02/25/2015 Office visit Cass RBAY 02/05/2015 Nurse visit Cass BRAY 12/17/2014 Hospital [...] 12/22/2012 Office visit Brannon Jackson DO 12/14/2012 [facility] Sandra Ca MD 12/12/2012 Office visit Brannon Jackson DO 12/12/2012 [facility] Sandra Ca MD 12/06/2012 Office visit Anirudh Conway MD 11/24/2012 Office visit Regina Mcnally RETOUCHER PHOTOENGRAVING 10/12/2012 [facility] Anirudh Conway MD 10/10/2012 Office visit Brannon Jackson DO 09/18/2012 Office visit Anirudh Conway MD 09/01/2012 Office visit Brannon Manuel DO 08/21/2012 Office visit Brannon Manuel DO 08/01/2012 Office visit Brannon Simpsonte DO 07/11/2012 Office visit Regina Mcnally RETOUCHER PHOTOENGRAVING 06/14/2012 Office visit Anirudh Conway MD 05/25/2012 Office visit Anirudh Conway MD 05/04/2012 Office visit Brannon Jackson DO 12/23/2011 Office visit Anirudh Conway MD 12/16/2011 Office visit Brannon Jackson DO 12/06/2011 Office visit Anirudh Conway MD 11/11/2011 Office visit Brannon Jackson DO 10/28/2011 Office visit Brannon Jackson DO 10/22/2011 [facility] Valery Cerna MD 10/21/2011 [facility] Valery Cerna MD 10/19/2011 Office visit Brannon Manuel DO 10/19/2011 [facility] Anderson Dawkins MD 10/07/2011 Office visit Brannon Manuel DO 04/27/2011 Office visit Brannon Manuel DO 04/16/2011 Office visit Brannon Manuel DO 12/18/2010 Office visit Brannon Manuel DO 11/17/2010 Office visit Brannon Manuel DO 10/08/2010 Office visit Brannon Manuel DO 08/18/2010 Office visit Regina Mcnally RETOUCHER PHOTOENGRAVING 02/03/2010 Office visit Brannon Manuel DO 12/02/2009 Office visit Brannon Manuel DO 06/27/2009 Office visit Brannon Simpsonte DO
--- OUTSIDE RECORDS SUMMARY | 2018-10-25 10:21 | XMS REPORT ---
Author Author Brannon Jackson [facility] Address [address] [place] [id number] Care Team Providers Care Job Putter Up And Ticket Preparer Name Role Phone Brannon Jackson PCP Brannon [...] in pm hydrocodone-acetaminophen 10-325 mg oral tablet 01/20/2018 02/19/2018 take 1 tablet by oral route every 6 hours for 30 days indomethacin 50 mg oral capsule 01/23/2018 take [...] 2 times per day for 7 days [place] Thyroid 120 mg oral tablet 12/14/2012 12/09/2013 [...] oral route every other day Accu-Chek Ana Cirstina Plus test strp miscellaneous strip 12/30/2016 12/30/2016 [...] drugs in past over 25 yrs ago [place] application [employer] 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 in [...] AM Kenalog per 10Mg Im-[facility]#[address]-11(Man) Reviewed 12/23/2011 12:00 AM DRAIN/INJ JOINT/BURSA W/O US Reviewed 12/23/2011 12:00 AM Kenalog 40 Mg [facility]#9329-7504-47 Reviewed 11/19/2016 12:00 AM X-RAY EXAM OF HAND Reviewed 01/19/2017 12:00 AM COMPLETE CBC W/AUTO DIFF WBC Reviewed 01/19/2017 12:00 AM COMPREHEN METABOLIC PANEL Reviewed 01/19/2017 12:00 AM GLYCOSYLATED HEMOGLOBIN TEST Reviewed 05/25/2012 12:00 AM INJ TRIGGER POINT 1/2 MUSCL Reviewed 05/25/2012 12:00 AM Kenalog, Per 10 Mg [facility]#4455-4406-89 Reviewed 06/14/2012 12:00 AM DRAIN/INJ JOINT/BURSA W/O US Reviewed 06/14/2012 12:00 AM Kenalog, Per 10 Mg [facility]#5263-9241-15 Reviewed 05/09/2017 12:00 AM MAMMOGRAPHY SCREENING, DIGITAL Reviewed 07/11/2012 12:00 AM THER/PROPH/DIAG INJ SC/IM Reviewed 07/11/2012 12:00 AM Decadron 1 mg [facility]#[id number] (Manuel) Reviewed 07/11/2012 12:00 AM Depo-Medrol 80 mg [facility]#[id number]-Grrpuqdn Reviewed 08/21/2012 12:00 AM ASSAY CARBOXYHB QUANT Reviewed 09/01/2017 12:00 AM RADIOLOGIC EXAMINATION KNEE 1/2 VIEWS Reviewed 09/18/2012 12:00 AM DRAIN/INJ JOINT/BURSA W/O US Reviewed 09/18/2012 12:00 AM Kenalog, Per 10 Mg [facility]#0525-5078-79 Reviewed 10/25/2017 12:00 AM RADIOLOGIC EXAMINATION KNEE [...] 12/06/2012 12:00 AM Kenalog, Per 10 Mg [facility]#5681-1717-18 Reviewed 12/22/2012 12:00 AM TOTAL CORTISOL Reviewed 04/26/2013 12:00 AM DRAIN/INJ JOINT/BURSA W/O US Reviewed 04/26/2013 12:00 AM Kenalog, Per 10 Mg [facility]#0842-1564-82 Reviewed 05/10/2013 12:00 AM DRAIN/INJ JOINT/BURSA W/O US Reviewed 05/10/2013 12:00 AM Kenalog, Per 10 Mg [facility]#6331-9586-62 Reviewed 05/10/2013 12:00 AM DRAIN/INJ JOINT/BURSA W/O US Reviewed 05/10/2013 12:00 AM Kenalog, Per 10 Mg [facility]#0593-3113-14 Reviewed 05/28/2013 12:00 AM MAMMOGRAM SCREENING Reviewed [...] 03/05/2014 12:00 AM Kenalog, Per 10 Mg [facility]#3831-1082-93 Reviewed 04/05/2014 12:00 AM COMPLETE CBC W/AUTO [...] 4.08 HGB 12.20 g/dLHCT 36.80 %MCV 90.0 [facility] 29.90 pgMCHC 33.20 g/dLRDW SD 42 RDW [...] Policy Number Policy Group Number Start Date [facility] [id number] Saturday, 2015 [employer] [facility] [id number] Saturday, 2009 [employer] [facility] [id number] Wednesday, 2009 History of Encounters Visit Date Visit Type Provider 12/02/2017 Office visit Brannon Jackson DO 11/11/2017 Office visit Brannon Jackson DO 11/09/2017 Office visit Harjinder Paiz PA-C 10/28/2017 Office visit Lakia Reina SLOT MACHINE FLOOR PERSON 10/25/2017 Office visit Regina Mcnally SLOT MACHINE FLOOR PERSON 10/05/2017 Office visit Regina Mcnally SLOT MACHINE FLOOR PERSON 09/01/2017 Office visit Brannon Jackson DO 06/29/2017 Office visit Karyna Gilbert SLOT MACHINE FLOOR PERSON 06/18/2017 Office visit Karyna Gilbert SLOT MACHINE FLOOR PERSON 05/09/2017 Office visit Brannon Jackson DO 03/08/2017 Office visit Brannon Jackson DO 01/25/2017 Office visit Brannon Jackson DO 01/19/2017 Office visit Regina Mcnally SLOT MACHINE FLOOR PERSON 01/04/2017 Procedures Reagan Lehman DO 12/24/2016 Office visit Brannon Jackson DO 12/23/2016 Surgery Reagan Lehman DO 12/14/2016 Office visit Reagan Lehman DO 11/25/2016 Office visit Brannon Jackson DO 11/19/2016 Office visit Sandra Milton SLOT MACHINE FLOOR PERSON 11/02/2016 Office visit Lakia Reina SLOT MACHINE FLOOR PERSON 09/09/2016 Office visit Brannon Jackson DO 05/18/2016 [...] Manuel DO 07/03/2014 Office visit Rob Ruiz SLOT MACHINE FLOOR PERSON 06/11/2014 Office visit Cass BRAY 04/29/2014 Office visit Cass BRAY 04/29/2014 Office visit Brannon Manuel DO 04/05/2014 Office visit Harjinder Paiz PA-C 02/25/2014 Office visit Cass ARCINIEGAP 01/02/2014 Office visit Cass ARCINIEGAP 12/18/2013 Office visit Cass Arellano LEATHER SPONGER 09/13/2013 Office visit Brannon Jackson DO 08/27/2013 Office visit Regina Mcnally SLOT MACHINE FLOOR PERSON 08/17/2013 Office visit Ray Tripathi SLOT MACHINE FLOOR PERSON 05/21/2013 Office visit Brannon Jackson DO 05/10/2013 [...] Jackson DO 07/11/2012 Office visit Regina Mcnally SLOT MACHINE FLOOR PERSON 06/14/2012 Office visit Anirudh Conway MD 05/25/2012 [...] Brannon Manuel DO 04/27/2011 Office visit Brannon Jackson DO 04/16/2011 Office visit Brannon Jackson DO 12/18/2010 Office visit Brannon Jackson DO 11/17/2010 Office visit Brannon Jackson DO 10/08/2010 Office visit Brannon Jackson DO 08/18/2010 Office visit Regina Mcnally APRN 02/03/2010 Office visit Brannon Jackson DO 12/02/2009 Office visit Brannon Jackson DO 06/27/2009 Office visit Brannon Jackson DO
--- OUTSIDE RECORDS SUMMARY | 2018-10-25 10:24 | XMS REPORT ---
Author Author Regina Mcnally Organization [facility] Address [address] [place], [place] [id number] Care Team Providers Care Photocopier Technician Name Role Phone Regina Mcnally PCP Brannon [...] 2 times per day for 7 days [place] Thyroid 120 mg oral tablet 12/14/2012 12/09/2013 [...] Reviewed 12/13/2011 12:00 AM Kenalog per 10Mg Im-[facility]#[address]-55(Man) Reviewed 12/23/2011 12:00 AM DRAIN/INJ JOINT/BURSA W/O US Reviewed 12/23/2011 12:00 AM Kenalog 40 Mg Im-[facility]#6847-7271-83 Reviewed 11/19/2016 12:00 AM X-RAY EXAM OF HAND Reviewed 01/19/2017 12:00 AM COMPLETE CBC W/AUTO DIFF WBC Reviewed 01/19/2017 12:00 AM COMPREHEN METABOLIC PANEL Reviewed 01/19/2017 12:00 AM GLYCOSYLATED HEMOGLOBIN TEST Reviewed 05/25/2012 12:00 AM INJ TRIGGER POINT 1/2 MUSCL Reviewed 05/25/2012 12:00 AM Kenalog, Per 10 Mg [facility]#0626-7343-74 Reviewed 06/14/2012 12:00 AM DRAIN/INJ JOINT/BURSA W/O US Reviewed 06/14/2012 12:00 AM Kenalog, Per 10 Mg [facility]#4703-2379-48 Reviewed 05/09/2017 12:00 AM MAMMOGRAPHY SCREENING, DIGITAL Reviewed 07/11/2012 12:00 AM THER/PROPH/DIAG INJ SC/IM Reviewed 07/11/2012 12:00 AM Decadron 1 mg [facility]#[id number] (Manuel) Reviewed 07/11/2012 12:00 AM Depo-Medrol 80 mg [facility]#[id number]-Rexqphhe Reviewed 08/21/2012 12:00 AM ASSAY CARBOXYHB QUANT Reviewed 09/01/2017 12:00 AM RADIOLOGIC EXAMINATION KNEE 1/2 VIEWS Reviewed 09/18/2012 12:00 AM DRAIN/INJ JOINT/BURSA W/O US Reviewed 09/18/2012 12:00 AM Kenalog, Per 10 Mg [facility]#5023-9807-22 Reviewed 10/13/2012 12:00 AM COMPREHEN METABOLIC PANEL Reviewed 10/13/2012 12:00 AM LIPID PANEL Reviewed 10/13/2012 12:00 AM GLYCOSYLATED HEMOGLOBIN TEST Reviewed 10/13/2012 12:00 AM MICROALBUMIN SEMIQUANT Reviewed 04/15/2010 12:00 AM MAMMOGRAM SCREENING Reviewed 12/06/2012 12:00 AM DRAIN/INJ JOINT/BURSA W/O US Reviewed 12/06/2012 12:00 AM Kenalog, Per 10 Mg [facility]#5745-8783-38 Reviewed 12/22/2012 12:00 AM TOTAL CORTISOL Reviewed 04/26/2013 12:00 AM DRAIN/INJ JOINT/BURSA W/O US Reviewed 04/26/2013 12:00 AM Kenalog, Per 10 Mg [facility]#7203-4259-08 Reviewed 05/10/2013 12:00 AM DRAIN/INJ JOINT/BURSA W/O US Reviewed 05/10/2013 12:00 AM Kenalog, Per 10 Mg [facility]#5783-7203-88 Reviewed 05/10/2013 12:00 AM DRAIN/INJ JOINT/BURSA W/O US Reviewed 05/10/2013 12:00 AM Kenalog, Per 10 Mg [facility]#1576-4285-07 Reviewed 05/28/2013 12:00 AM MAMMOGRAM SCREENING Reviewed [...] 12:00 AM Kenalog, Per 10 Mg [facility]#6943-8601-13 Reviewed 04/05/2014 12:00 AM COMPLETE CBC W/AUTO [...] 4.58 HGB 13.90 g/dLHCT 39.40 %MCV 86.0 fLH 30.30 pgMCHC 35.30 g/dLRDW SD 40 RDW [...] shoulder region-right Nov 24 2012 10:47AM Bursitis Fe2012 3:44PM Diabetes Mellitus, Type II Dec 12 [...] Policy Number Policy Group Number Start Date [facility] Gpa [id number] Saturday, 2015 BCBS [employer] [facility] [id number] Saturday, 2009 [facility] [id number] Wednesday, 2009 History of Encounters Visit Date Visit Type Provider 10/05/2017 Office visit Regina Mcnally SENIOR TEST ENGINEER 09/01/2017 Office visit Brannon Jackson DO 06/29/2017 Office visit Karyna Gilbert SENIOR TEST ENGINEER 06/18/2017 Office visit Karyna Gilbert SENIOR TEST ENGINEER 05/09/2017 Office visit Brannon Jackson DO 03/08/2017 Office visit Brannon Jackson DO 01/25/2017 Office visit Brannon Jackson DO 01/19/2017 Office visit Regina Mcnally SENIOR TEST ENGINEER 01/04/2017 Procedures Reagan Lehman DO 12/24/2016 Office visit Brannonpatrica Jackson DO 12/23/2016 Surgery Reagan Lehman DO 12/14/2016 Office visit Reagan Lehman DO 11/25/2016 Office visit Brannon Jackson DO 11/19/2016 Office visit Sandra Milton SENIOR TEST ENGINEER 11/02/2016 Office visit Lakia Riena SENIOR TEST ENGINEER 09/09/2016 Office visit Brannon Simpsonte DO 05/18/2016 Office visit Brannon Simpsonte DO 05/05/2016 Office visit 05/05/2016 Office visit Brannon Simpsonte DO 02/05/2016 Office visit Brannon Simpsonte DO [...] visit Cass BRAY 07/29/2014 Office visit Cass Arellano WEIGH AND CHARGE WORKER 07/18/2014 Office visit Brannon Manuel DO 07/03/2014 Office visit Rob Ruiz SENIOR TEST ENGINEER 06/11/2014 Office visit Cass Arellano WEIGH AND CHARGE WORKER 04/29/2014 Office visit Cass Arellano WEIGH AND CHARGE WORKER 04/29/2014 Office visit Brannon Manuel DO 04/05/2014 Office visit Harjinder Paiz PA-C 02/25/2014 Office visit Cass Arellano WEIGH AND CHARGE WORKER 01/02/2014 Office visit Cass Arellano WEIGH AND CHARGE WORKER 12/18/2013 Office visit Cass Arellano WEIGH AND CHARGE WORKER 09/13/2013 Office visit Brannon Jackson DO 08/27/2013 Office visit Regina Mcnally SENIOR TEST ENGINEER 08/17/2013 Office visit Ray Tripathi SENIOR TEST ENGINEER 05/21/2013 Office visit Brannon Jackson DO 05/10/2013 Office visit Anirudh Conway MD 04/26/2013 Office visit Anirudh Conway MD 12/22/2012 Office visit Brannon Jackson DO 12/14/2012 [facility] Sandra Ca MD 12/12/2012 Office visit Brannon Jackson DO 12/12/2012 [facility] Sandra Ca MD 12/06/2012 Office visit Anirudh Conway MD 11/24/2012 Office visit Regina Mcnally APRN 10/12/2012 [facility] Anirudh Conway MD 10/10/2012 Office visit Brannon Jackson DO 09/18/2012 Office visit Anirudh Conway MD 09/01/2012 Office visit Brannon Jackson DO 08/21/2012 Office visit Brannon Jackson DO 08/01/2012 Office visit Brannon Jackson DO 07/11/2012 Office visit Regina Mcnally SENIOR TEST ENGINEER 06/14/2012 Office visit Anirudh Conway MD 05/25/2012 Office visit Anirudh Conway MD 05/04/2012 Office visit Brannon Jackson DO 12/23/2011 Office visit Anirudh Conway MD 12/16/2011 Office visit Brannon Jackson DO 12/06/2011 Office visit Anirudh Conway MD 11/11/2011 Office visit Brannon Jackson DO 10/28/2011 Office visit Brannon Jackson DO 10/22/2011 [facility] Valery Cerna MD 10/21/2011 [facility] Valery Cerna MD 10/19/2011 Office visit Brannon Jackson DO 10/19/2011 [facility] Anderson Dawkins MD 10/07/2011 Office [...]
--- OUTSIDE RECORDS SUMMARY | 2018-10-25 10:27 | XMS REPORT ---
Author Author Brannon Jackson [facility] Address [address] [place], [place] [address] Care Team Providers Care Aerial Photograph Interpreter Name Role Phone Brannon Jackson PCP Unavailable [...] (0.5 mg) by oral route once daily Accu-Chek Ana Cristina Plus test strp miscellaneous strip 12/30/2016 Test glucose twice a day. Dx e11.9 Name Start Date Expiration Date SIG Comments [...] 2 times per day for 7 days [place] Thyroid 120 mg oral tablet 12/14/2012 [...] 12:00 AM Kenalog per 10Mg Im-[facility]#[address]-93(Man) Reviewed 12/23/2011 12:00 AM DRAIN/INJ JOINT/BURSA W/O US Reviewed 12/23/2011 12:00 AM Kenalog 40 Mg Im-[facility]#2584-4043-11 Reviewed 11/19/2016 12:00 AM X-RAY EXAM OF HAND Reviewed 05/25/2012 12:00 AM INJ TRIGGER POINT 1/2 MUSCL Reviewed 05/25/2012 12:00 AM Kenalog, Per 10 Mg [facility][NOTE 3]#9086-5443-64 Reviewed 06/14/2012 12:00 AM DRAIN/INJ JOINT/BURSA W/O US Reviewed 06/14/2012 12:00 AM Kenalog, Per 10 Mg [facility][NOTE 3]#4920-4349-29 Reviewed 07/11/2012 12:00 AM THER/PROPH/DIAG INJ SC/IM Reviewed 07/11/2012 12:00 AM Decadron 1 mg [facility][NOTE 3]#[id number] (Manuel) Reviewed 07/11/2012 12:00 AM Depo-Medrol 80 mg [facility][NOTE 3]#[id number]-Rmzvkehk Reviewed 08/21/2012 12:00 AM ASSAY CARBOXYHB QUANT Reviewed 09/18/2012 12:00 AM DRAIN/INJ JOINT/BURSA W/O US Reviewed 09/18/2012 12:00 AM Kenalog, Per 10 Mg [facility][NOTE 3]#1792-2623-62 Reviewed 10/13/2012 12:00 AM COMPREHEN METABOLIC PANEL Reviewed 10/13/2012 12:00 AM LIPID PANEL Reviewed 10/13/2012 12:00 AM GLYCOSYLATED HEMOGLOBIN TEST Reviewed 10/13/2012 12:00 AM MICROALBUMIN SEMIQUANT Reviewed 04/15/2010 12:00 AM MAMMOGRAM SCREENING Reviewed 12/06/2012 12:00 AM DRAIN/INJ JOINT/BURSA W/O US Reviewed 12/06/2012 12:00 AM Kenalog, Per 10 Mg [facility]#1452-1362-09 Reviewed 12/22/2012 12:00 AM TOTAL CORTISOL Reviewed 04/26/2013 12:00 AM DRAIN/INJ JOINT/BURSA W/O US Reviewed 04/26/2013 12:00 AM Kenalog, Per 10 Mg [facility]#7726-9790-31 Reviewed 05/10/2013 12:00 AM DRAIN/INJ JOINT/BURSA W/O US Reviewed 05/10/2013 12:00 AM Kenalog, Per 10 Mg [facility][NOTE 3]#2194-0864-22 Reviewed 05/10/2013 12:00 AM DRAIN/INJ JOINT/BURSA W/O US Reviewed 05/10/2013 12:00 AM Kenalog, Per 10 Mg [facility][NOTE 3]#1536-0426-86 Reviewed 05/28/2013 12:00 AM MAMMOGRAM SCREENING Reviewed [...] 03/05/2014 12:00 AM [place]enc[place], Per 10 Mg [facility][NOTE 3]#5716-5694-03 Reviewed 04/05/2014 12:00 AM COMPLETE CBC W/AUTO [...] in joint; Knee Feb 2011 11:24AM Fibromyalgia b 2011 11:24AM Lumbago [...] Policy Group Number Start Date Gpa Gpa [id number] Saturday, 2015 [employer] [place] [id number] Saturday, 2009 [employer] [place] [id number] Wednesday, 2009 History of Encounters Visit Date Visit Type Provider 12/24/2016 Office visit Brannon Jackson DO 12/23/2016 Surgery Reagan Lehman DO 12/14/2016 Office visit Reagan Lehamn DO 11/25/2016 Office visit Brannon Jackson DO 11/19/2016 Office visit Sandra Milton FRUIT VENDOR 11/02/2016 Office visit Lakia Reina FRUIT VENDOR 09/09/2016 Office visit Brannon Jackson DO 05/18/2016 [...] BRAY 12/17/2014 [facility] Dinesh hZu MD 12/17/2014 Office visit Brannon Jackson DO 12/12/2014 Office visit Cass BRAY 10/29/2014 Office visit Cass BRAY 10/02/2014 Office visit Cass BRAY 09/20/2014 Office visit Brannon Jackson DO 09/05/2014 Office visit Cass BRAY 07/29/2014 Office visit Cass BRAY 07/18/2014 Office visit Brannon Jackson DO 07/03/2014 Office visit Rob Ruiz FRUIT VENDOR 06/11/2014 Office visit Cass BRAY 04/29/2014 Office [...]
--- OUTSIDE RECORDS SUMMARY | 2018-10-25 10:29 | XMS REPORT ---
Author Author Brannon Jackson [facility] Address [address] [place], [place] [address] Care Team Providers Care Pattern Attendant Name Role Phone Brannon Jackson PCP Unavailable [...] 3 mo supply for mail order through [facility] amitriptyline oral tablet 10 mg 08/29/2014 11/22/2015 [...] 2 times per day for 7 days [place] Thyroid oral tablet 120 mg 12/14/2012 12/09/2013 [...] BILI 0.90 mg/dLCALCIUM 9.50 mg/dLeGFR >60 mL/min/1.73 [id number] 18.0 U/L 01/02/2014 10:02 AM GLUCOSE 134.0 [...] Start Date [employer] [place] [id number] Wednesday, 2009 [employer] [facility] [place] [id number] Saturday, 2009 History of Encounters Visit Date [...] APRN 08/17/2013 Office visit Ray KirbyMonse Tripathi BEE RAISER 05/21/2013 Office visit Brannon Jackson DO 05/10/2013 Office visit Anirudh Conway MD 04/26/2013 Office visit Anirudh Conway MD 12/22/2012 Office visit Brannon Jackson DO 12/14/2012 [facility] Sandra Ca MD 12/12/2012 Office visit Brannon Jackson DO 12/12/2012 [facility] Sandra Ca MD 12/06/2012 Office visit Anirudh Conway MD 11/24/2012 Office visit Regina Mcnally BEE RAISER 10/12/2012 [facility] Anirudh Conway MD 10/10/2012 Office visit Brannon Simpsonte DO 09/18/2012 Office visit Anirudh Conway MD 09/01/2012 Office visit Brannon Simpsonte DO 08/21/2012 Office visit Brannon Jackson DO 08/01/2012 Office visit Brannon Simpsonte DO 07/11/2012 Office visit Regina Mcnally BEE RAISER 06/14/2012 Office visit Anirudh Conway MD 05/25/2012 Office visit Anirudh Conway MD 05/04/2012 Office visit Brannon Jackson DO 12/23/2011 Office visit Anirudh Conway MD 12/16/2011 Office visit Brannon Jackson DO 12/06/2011 Office visit Anirudh Conway MD 11/11/2011 Office visit Brannon Jackson DO 10/28/2011 Office visit Brannon Manuel DO 10/22/2011 [facility] Valery Cerna MD 10/21/2011 [facility] Valery Cerna MD 10/19/2011 Office visit Brannon Manuel DO 10/19/2011 [facility] Anderson Dawkins MD 10/07/2011 Office visit Brannon Manuel DO 04/27/2011 Office visit Brannon Manuel DO 04/16/2011 Office visit Brannon Manuel DO 12/18/2010 Office visit Brannon Manuel DO 11/17/2010 Office visit Brannon Manuel DO 10/08/2010 Office visit Brannon Manuel DO 08/18/2010 Office visit Regina Mcnally BEE RAISER 02/03/2010 Office visit Brannon Manuel DO 12/02/2009 Office visit Brannon Manuel DO 06/27/2009 Office visit Brannon Manuel DO
--- OUTSIDE RECORDS SUMMARY | 2018-10-25 10:31 | XMS REPORT ---
Author Author Regina Mcnally Organization [facility] Address [address] [place], [place] [id number] Care Team Providers Care Regional Construction Manager Name Role Phone Regina Mcnally PCP Unavailable Brannon Jackson PreferredProvider Unavailable Allergies [...] route 2 times per day with food OneTouch Verio miscellaneous strip 12/30/2016 Test glucose 2 times a day Dx: e11.9 hydrocodone-acetaminophen 10-325 mg oral tablet 01/04/2017 02/03/2017 take 1 tablet by oral route every 6 hours for 30 days amlodipine 5 mg oral tablet 01/18/2017 [...] 1 tablet by oral route once daily Name Start [...] 2 times per day for 7 days [place] Thyroid 120 mg oral tablet 12/14/2012 12/09/2013 [...] once daily at bedtime for 7 days Discontinued Name Start Date [...] HC BMI BSA BMI Percentile O2 Sat(%) 01/19/2017 9:38:00 AM 136 mmHg 82 mmHg [...] Reviewed 12/13/2011 12:00 AM Kenalog per 10Mg Im-[facility]#[address]-84(Man) Reviewed 12/23/2011 12:00 AM DRAIN/INJ JOINT/BURSA W/O US Reviewed 12/23/2011 12:00 AM Kenalog 40 Mg Im-[facility]#8897-1281-85 Reviewed 11/19/2016 12:00 AM X-RAY EXAM OF HAND Reviewed 01/19/2017 12:00 AM COMPLETE CBC W/AUTO DIFF WBC Returned 01/19/2017 12:00 AM COMPREHEN METABOLIC PANEL Returned 01/19/2017 12:00 AM GLYCOSYLATED HEMOGLOBIN TEST Returned 05/25/2012 12:00 AM INJ TRIGGER POINT 1/2 MUSCL Reviewed 05/25/2012 12:00 AM Kenalog, Per 10 Mg [facility]#4493-4986-18 Reviewed 06/14/2012 12:00 AM DRAIN/INJ JOINT/BURSA W/O US Reviewed 06/14/2012 12:00 AM Kenalog, Per 10 Mg [facility]#2183-9011-77 Reviewed 07/11/2012 12:00 AM THER/PROPH/DIAG INJ SC/IM Reviewed 07/11/2012 12:00 AM Decadron 1 mg [facility]#[id number] (Manuel) Reviewed 07/11/2012 12:00 AM Depo-Medrol 80 mg [facility]#[id number]-Yhmprzfw Reviewed 08/21/2012 12:00 AM ASSAY CARBOXYHB QUANT Reviewed 09/18/2012 12:00 AM DRAIN/INJ JOINT/BURSA W/O US Reviewed 09/18/2012 12:00 AM Kenalog, Per 10 Mg [facility]#0169-8583-98 Reviewed 10/13/2012 12:00 AM COMPREHEN METABOLIC PANEL Reviewed 10/13/2012 12:00 AM LIPID PANEL Reviewed 10/13/2012 12:00 AM GLYCOSYLATED HEMOGLOBIN TEST Reviewed 10/13/2012 12:00 AM MICROALBUMIN SEMIQUANT Reviewed 04/15/2010 12:00 AM MAMMOGRAM SCREENING Reviewed 12/06/2012 12:00 AM DRAIN/INJ JOINT/BURSA W/O US Reviewed 12/06/2012 12:00 AM Kenalog, Per 10 Mg [facility]#1709-4559-07 Reviewed 12/22/2012 12:00 AM TOTAL CORTISOL Reviewed 04/26/2013 12:00 AM DRAIN/INJ JOINT/BURSA W/O US Reviewed 04/26/2013 12:00 AM Kenalog, Per 10 Mg [facility]#5260-4626-22 Reviewed 05/10/2013 12:00 AM DRAIN/INJ JOINT/BURSA W/O US Reviewed 05/10/2013 12:00 AM Kenalog, Per 10 Mg [facility]#1802-0716-92 Reviewed 05/10/2013 12:00 AM DRAIN/INJ JOINT/BURSA W/O US Reviewed 05/10/2013 12:00 AM Kenalog, Per 10 Mg [facility]#4799-9359-49 Reviewed 05/28/2013 12:00 AM MAMMOGRAM SCREENING Reviewed [...] AM Kenalog, Per 10 Mg [facility]#5249-5473-47 Reviewed 04/05/2014 12:00 AM COMPLETE CBC W/AUTO [...] 2017 9:40AM Nausea Jan 19 2017 9:40AM Payers Insurance Name Company Name Plan Name Plan Number Policy Number Policy Group Number Start Date [facility] [id number] Saturday, 2015 BCBS [facility] [id number] Saturday, 2009 [employer]BS [employer] [facility] [id number] Wednesday, 2009 History of Encounters Visit Date Visit Type Provider 01/19/2017 Office visit Regina Mcnally LOKIE DRIVER 01/04/2017 Procedures Reagan Lehman DO 12/24/2016 Office visit Brannon Jackson DO 12/23/2016 Surgery Reagan Lehman DO 12/14/2016 Office visit Reagan Lehman DO 11/25/2016 Office visit Brannon Jackson DO 11/19/2016 Office visit Sandra Milton LOKIE DRIVER 11/02/2016 Office visit Lakia Reina LOKIE DRIVER 09/09/2016 Office visit Brannon Jackson DO 05/18/2016 [...] Jackson DO 07/11/2012 Office visit Regina Mcnally LOKIE DRIVER 06/14/2012 Office visit Anirudh Conway MD 05/25/2012 Office visit Anirudh Conway MD 05/04/2012 Office visit Brannon Jackson DO 12/23/2011 Office visit Anirudh Conway MD 12/16/2011 Office visit Brannon Jackson DO 12/06/2011 Office visit Anirudh Conway MD 11/11/2011 Office visit Brannon Jackson DO 10/28/2011 Office visit Brannon Jackson DO 10/22/2011 [facility] Valery Cerna MD 10/21/2011 [facility] Valery Cerna MD 10/19/2011 Office visit Brannon Manuel DO 10/19/2011 [facility] Anderson Dawkins MD 10/07/2011 Office visit Brannon Manuel DO 04/27/2011 Office visit Brannon Manuel DO 04/16/2011 Office visit Brannon Manuel DO 12/18/2010 Office visit Brannon Manuel DO 11/17/2010 Office visit Brannon Simpsonte DO 10/08/2010 Office visit Brannon Manuel DO 08/18/2010 Office visit Regina Mcnally APRN 02/03/2010 Office visit Brannon Jackson DO 12/02/2009 Office visit Brannon Simpsonte DO 06/27/2009 Office visit Brannon Simpsonte DO
--- OUTSIDE RECORDS SUMMARY | 2018-10-25 10:34 | XMS REPORT ---
Author Author Brannon Jackson [facility] Address [address] [place], [place] [id number] Care Team Providers Care Lunch Counter Manager Name Role Phone Brannon Jackson PCP [...] glucose 2 times a day Dx: e11.9 Name Start Date Expiration Date SIG [...] 2 times per day for 7 days [place] Thyroid 120 mg oral tablet 12/14/2012 12/09/2013 [...] Reviewed 12/13/2011 12:00 AM Kenalog per 10Mg [facility]#[address]-59(Man) Reviewed 12/23/2011 12:00 AM DRAIN/INJ JOINT/BURSA W/O US Reviewed 12/23/2011 12:00 AM Kenalog 40 Mg [facility]#5604-0978-78 Reviewed 11/19/2016 12:00 AM X-RAY EXAM OF HAND Reviewed 05/25/2012 12:00 AM INJ TRIGGER POINT 1/2 MUSCL Reviewed 05/25/2012 12:00 AM Kenalog, Per 10 Mg [facility]#0619-1320-94 Reviewed 06/14/2012 12:00 AM DRAIN/INJ JOINT/BURSA W/O US Reviewed 06/14/2012 12:00 AM Kenalog, Per 10 Mg [facility]#9195-2211-33 Reviewed 07/11/2012 12:00 AM THER/PROPH/DIAG INJ SC/IM Reviewed 07/11/2012 12:00 AM Decadron 1 mg [facility]#[id number] (Manuel) Reviewed 07/11/2012 12:00 AM Depo-Medrol 80 mg [facility]#[id number]-Riizziai Reviewed 08/21/2012 12:00 AM ASSAY CARBOXYHB QUANT Reviewed 09/18/2012 12:00 AM DRAIN/INJ JOINT/BURSA W/O US Reviewed 09/18/2012 12:00 AM Kenalog, Per 10 Mg [facility]#9602-0170-05 Reviewed 10/13/2012 12:00 AM COMPREHEN METABOLIC PANEL Reviewed 10/13/2012 12:00 AM LIPID PANEL Reviewed 10/13/2012 12:00 AM GLYCOSYLATED HEMOGLOBIN TEST Reviewed 10/13/2012 12:00 AM MICROALBUMIN SEMIQUANT Reviewed 04/15/2010 12:00 AM MAMMOGRAM SCREENING Reviewed 12/06/2012 12:00 AM DRAIN/INJ JOINT/BURSA W/O US Reviewed 12/06/2012 12:00 AM Kenalog, Per 10 Mg [facility]#3710-7735-04 Reviewed 12/22/2012 12:00 AM TOTAL CORTISOL Reviewed 04/26/2013 12:00 AM DRAIN/INJ JOINT/BURSA W/O US Reviewed 04/26/2013 12:00 AM Kenalog, Per 10 Mg [facility]#5895-7935-23 Reviewed 05/10/2013 12:00 AM DRAIN/INJ JOINT/BURSA W/O US Reviewed 05/10/2013 12:00 AM Kenalog, Per 10 Mg [facility]#3403-6587-53 Reviewed 05/10/2013 12:00 AM DRAIN/INJ JOINT/BURSA W/O US Reviewed 05/10/2013 12:00 AM Kenalog, Per 10 Mg [facility]#7592-2112-78 Reviewed 05/28/2013 12:00 AM MAMMOGRAM SCREENING Reviewed [...] 10 Mg [facility]#5857-8533-91 Reviewed 04/05/2014 12:00 AM COMPLETE CBC W/AUTO [...] Insomnia b 16 2011 3:26PM Dermatitis b 2011 3:26PM [...] 12 2014 3:20PM Osteoarthritis, Left Hip Feb 2014 [...] Number Start Date [facility] [id number] Saturday, 2015 [employer] [place] [id number] Saturday, 2009 [employer] [place] [id number] Wednesday, 2009 History of Encounters Visit Date [...] DO 04/09/2015 Office visit Cass BRAY 04/01/2015 [facility] Dinesh Zhu MD 04/01/2015 Office visit Brannon Manuel DO 03/10/2015 Office visit Cass BRAY 02/25/2015 Office visit Cass BRAY 02/05/2015 Nurse visit Cass BRAY 12/17/2014 [facility] Dinesh Zhu MD 12/17/2014 Office visit Brannon [...] Jackson DO 08/27/2013 Office visit Regina Mcnally MRI ASSISTANT 08/17/2013 Office visit Ray Tripathi APRN 05/21/2013 [...] Jackson DO 07/11/2012 Office visit Regina Mcnally MRI ASSISTANT 06/14/2012 Office visit Anirudh Conway MD 05/25/2012 [...] Jackson DO 08/18/2010 Office visit Regina Mcnally MRI ASSISTANT 02/03/2010 Office visit Brannon Jackson DO 12/02/2009 Office visit Brannon Jackson DO 06/27/2009 Office visit Brannon Jackson DO
--- OUTSIDE RECORDS SUMMARY | 2018-10-25 10:36 | XMS REPORT ---
Author Author Brannon Jackson [facility] Address [address] [place], [place] [address] Care Team Providers Care Memorial Designer Name Role Phone Brannon Jackson PCP Unavailable [...] 3 mo supply for mail order through [employer] amitriptyline oral tablet 10 mg 08/29/2014 11/22/2015 [...] 1 tablet by oral route once daily alprazolam Oral tablet 0.5 mg 2015 05/21/2015 TAKE ONE TABLET BY MOUTH TWICE DAILY NEEDED hydrocodone-acetaminophen oral tablet 10-325 mg 05/08/2015 06/07/2015 [...] 2 times per day for 7 days [place] Thyroid oral tablet 120 mg 12/14/2012 12/09/2013 [...] HC BMI BSA BMI Percentile O2 Sat(%) 05/08/2015 11:38:00 AM 110 mmHg 64 mmHg [...] BILI 0.90 mg/dLCALCIUM 9.50 mg/dLeGFR >60 mL/min/1.73 a2HIULRO 18.0 U/L 01/02/2014 10:02 AM GLUCOSE 134.0 [...] Bilateral Hip Dec 06 2011 4:20PM Bursitis Fe 6 2011 4:20PM Pain in joint; Knee b 2011 4:20PM Fibromyalgia Feb 2011 4:20PM Lumbago Feb 6 2011 4:20PM Cervicalgia Feb 6 2012 4:20PM Trochanteric Bursitis Dec 13 2011 9:26AM [...] Dec 12 2014 3:20PM Osteoarthritis, Left Hip Feb [...] Chronic pain syndrome May 08 2015 11:40AM Payers Insurance Name Company Name Plan Name Plan Number Policy Number Policy Group Number Start Date [employer] [place] [id number] Wednesday, 2009 [employer] [place] [id number] Saturday, 2009 History of Encounters Visit Date Visit Type Provider 05/08/2015 Nurse visit Cass BRAY 04/28/2015 Office [...] Cass BRAY 07/29/2014 Office visit Cass Arellano BAGGAGE PORTER 07/18/2014 Office visit Brannon Manuel DO 07/03/2014 Office visit Rob Ruiz LACE PINNER 06/11/2014 Office visit Cass Arellano BAGGAGE PORTER 04/29/2014 Office visit Brannon Manuel DO 04/29/2014 Office visit Cass Arellano BAGGAGE PORTER 04/05/2014 Office visit Harjinder Paiz PA-C 02/25/2014 Office visit Cass Arellano BAGGAGE PORTER 01/02/2014 Office visit Cass Arellano BAGGAGE PORTER 12/18/2013 Office visit Cass Arellano BAGGAGE PORTER 09/13/2013 Office visit Brannon Manuel DO 08/27/2013 Office visit Regina Mcnally LACE PINNER 08/17/2013 Office visit Ray Tripathi LACE PINNER 05/21/2013 Office visit Brannon Jackson DO 05/10/2013 Office visit Anirudh Cnoway MD 04/26/2013 Office visit Anirudh Conway MD [...] Jackson DO 07/11/2012 Office visit Regina Mcnally LACE PINNER 06/14/2012 Office visit Anirudh Conway MD 05/25/2012 Office visit Anirudh Conway MD 05/04/2012 Office visit Brannon Jackson DO 12/23/2011 Office visit Anirudh Conway MD 12/16/2011 Office visit Brannon Jackson DO 12/06/2011 Office visit Anirudh Cownay MD 11/11/2011 Office visit Brannon Jackson DO [...]
--- OUTSIDE RECORDS SUMMARY | 2018-10-25 10:39 | XMS REPORT ---
Author Author Brannon Jackson [facility] Address [address] [place], [place] [address] Care Team Providers Care Wool Supplier Name Role Phone Brannon Jackson PCP Unavailable [...] route 2 times per for 90 days Name Start [...] 2 times per day for 7 days [place] Thyroid 120 mg oral tablet 12/14/2012 12/09/2013 [...] 12/13/2011 12:00 AM Kenalog per 10Mg [facility]#[address]-71(Man) Reviewed 12/23/2011 12:00 AM DRAIN/INJ JOINT/BURSA W/O US Reviewed 12/23/2011 12:00 AM Kenalog 40 Mg [facility]#2272-5886-47 Reviewed 11/19/2016 12:00 AM X-RAY EXAM OF HAND Reviewed 01/19/2017 12:00 AM COMPLETE CBC W/AUTO DIFF WBC Reviewed 01/19/2017 12:00 AM COMPREHEN METABOLIC PANEL Reviewed 01/19/2017 12:00 AM GLYCOSYLATED HEMOGLOBIN TEST Reviewed 05/25/2012 12:00 AM INJ TRIGGER POINT 1/2 MUSCL Reviewed 05/25/2012 12:00 AM Kenalog, Per 10 Mg [facility]#4159-1944-12 Reviewed 06/14/2012 12:00 AM DRAIN/INJ JOINT/BURSA W/O US Reviewed 06/14/2012 12:00 AM Kenalog, Per 10 Mg [facility]#3837-9030-32 Reviewed 07/11/2012 12:00 AM THER/PROPH/DIAG INJ SC/IM Reviewed 07/11/2012 12:00 AM Decadron 1 mg [facility]#[id number] (Manuel) Reviewed 07/11/2012 12:00 AM Depo-Medrol 80 mg [facility]#[id number]-Sovzzyny Reviewed 08/21/2012 12:00 AM ASSAY CARBOXYHB QUANT Reviewed 09/18/2012 12:00 AM DRAIN/INJ JOINT/BURSA W/O US Reviewed 09/18/2012 12:00 AM Kenalog, Per 10 Mg [facility]#0234-8763-35 Reviewed 10/13/2012 12:00 AM COMPREHEN METABOLIC PANEL Reviewed 10/13/2012 12:00 AM LIPID PANEL Reviewed 10/13/2012 12:00 AM GLYCOSYLATED HEMOGLOBIN TEST Reviewed 10/13/2012 12:00 AM MICROALBUMIN SEMIQUANT Reviewed 04/15/2010 12:00 AM MAMMOGRAM SCREENING Reviewed 12/06/2012 12:00 AM DRAIN/INJ JOINT/BURSA W/O US Reviewed 12/06/2012 12:00 AM Kenalog, Per 10 Mg [facility]#9170-9407-77 Reviewed 12/22/2012 12:00 AM TOTAL CORTISOL Reviewed 04/26/2013 12:00 AM DRAIN/INJ JOINT/BURSA W/O US Reviewed 04/26/2013 12:00 AM Kenalog, Per 10 Mg [facility]#5050-5571-82 Reviewed 05/10/2013 12:00 AM DRAIN/INJ JOINT/BURSA W/O US Reviewed 05/10/2013 12:00 AM Kenalog, Per 10 Mg [facility]#2944-0527-25 Reviewed 05/10/2013 12:00 AM DRAIN/INJ JOINT/BURSA W/O US Reviewed 05/10/2013 12:00 AM Kenalog, Per 10 Mg [facility]#9892-6571-88 Reviewed 05/28/2013 12:00 AM MAMMOGRAM SCREENING Reviewed [...] 03/05/2014 12:00 AM Kenalog, Per 10 Mg [facility]#3606-1693-07 Reviewed 04/05/2014 12:00 AM COMPLETE CBC W/AUTO [...] Trochanteric Bursitis Feb 13 2011 9:26AM Insomnia Fe 16 2011 3:26PM Dermatitis Feb 16 2011 [...] Dec 12 2014 3:20PM Osteoarthritis, Left Hip Fe2014 3:20PM [...] Policy Group Number Start Date Gpa Gpa [id number] Saturday, 2015 [employer] [place] [id number] Saturday, 2009 [employer] [place] [id number] Wednesday, 2009 History of Encounters Visit Date Visit Type Provider 05/09/2017 Office visit Brannon Jackson DO 03/08/2017 Office visit Brannon Jackson DO 01/25/2017 Office visit Brannon Jackson DO 01/19/2017 Office visit Regina Mcnally VETERINARY RECEPTIONIST 01/04/2017 Procedures Reagan Lehman DO 12/24/2016 Office visit Brannon Jackson DO 12/23/2016 Surgery Reagan Lehman DO 12/14/2016 Office visit Reagan Lehman DO 11/25/2016 Office visit Brannon Jackson DO 11/19/2016 Office visit Sandra Milton VETERINARY RECEPTIONIST 11/02/2016 Office visit Lakia Reina VETERINARY RECEPTIONIST 09/09/2016 Office visit Brannon Jackson DO 05/18/2016 [...] Manuel DO 07/03/2014 Office visit Rob Ruiz VETERINARY RECEPTIONIST 06/11/2014 Office visit Cass BRAY 04/29/2014 Office visit Cass BRAY 04/29/2014 Office visit Brannon Jackson DO 04/05/2014 Office visit Harjinder Paiz PA-C 02/25/2014 Office visit Cass BRAY 01/02/2014 Office visit Cass BRAY 12/18/2013 Office visit Cass BRAY 09/13/2013 Office visit Brannon Jackson DO 08/27/2013 Office visit Regina Mcnally VETERINARY RECEPTIONIST 08/17/2013 Office visit Ray Tripathi VETERINARY RECEPTIONIST 05/21/2013 Office visit Brannon Jackson DO 05/10/2013 Office visit Anirudh Conway MD 04/26/2013 Office visit Anirudh Conway MD 12/22/2012 Office visit Brannon Jackson DO 12/14/2012 [facility] Sandra Ca MD 12/12/2012 Office visit Brannon Jackson DO 12/12/2012 [facility] Sandra Ca MD 12/06/2012 Office visit Anirudh Conway MD 11/24/2012 Office visit Regina Mcnally VETERINARY RECEPTIONIST 10/12/2012 [facility] Anirudh Conway MD 10/10/2012 Office visit Brannon Jackson DO 09/18/2012 Office visit Anirudh Conway MD 09/01/2012 Office visit Brannon Jackson DO 08/21/2012 Office visit Brannon Jackson DO 08/01/2012 Office visit Brannon Jackson DO 07/11/2012 Office visit Regina Mcnally VETERINARY RECEPTIONIST 06/14/2012 Office visit Anirudh Conway MD 05/25/2012 [...] Jackson DO 08/18/2010 Office visit Regina Mcnally VETERINARY RECEPTIONIST 02/03/2010 Office visit Brannon Jackson DO 12/02/2009 Office visit Brannon Jackson DO 06/27/2009 Office visit Brannon Jackson DO
--- OUTSIDE RECORDS SUMMARY | 2018-10-25 10:41 | XMS REPORT ---
Author Author Brannon Jackson [facility] Address [address] [place], [place] [address] Care Team Providers Care Cellar Pumper Name Role Phone Brannon Jackson PCP Unavailable [...] 2 times per day for 7 days [place] Thyroid 120 mg oral tablet 12/14/2012 12/09/2013 [...] Reviewed 12/13/2011 12:00 AM Kenalog per 10Mg [facility]#[address]-82(Man) Reviewed 12/23/2011 12:00 AM DRAIN/INJ JOINT/BURSA W/O US Reviewed 12/23/2011 12:00 AM Kenalog 40 Mg [facility]#3321-5835-22 Reviewed 11/19/2016 12:00 AM X-RAY EXAM OF HAND Reviewed 05/25/2012 12:00 AM INJ TRIGGER POINT 1/2 MUSCL Reviewed 05/25/2012 12:00 AM Kenalog, Per 10 Mg [facility]#6872-4092-31 Reviewed 06/14/2012 12:00 AM DRAIN/INJ JOINT/BURSA W/O US Reviewed 06/14/2012 12:00 AM Kenalog, Per 10 Mg [facility]#6567-5223-76 Reviewed 07/11/2012 12:00 AM THER/PROPH/DIAG INJ SC/IM Reviewed 07/11/2012 12:00 AM Decadron 1 mg [facility]#[id number] (Manuel) Reviewed 07/11/2012 12:00 AM Depo-Medrol 80 mg [facility]#[id number]-Dicobxyk Reviewed 08/21/2012 12:00 AM ASSAY CARBOXYHB QUANT Reviewed 09/18/2012 12:00 AM DRAIN/INJ JOINT/BURSA W/O US Reviewed 09/18/2012 12:00 AM Kenalog, Per 10 Mg [facility]#2181-7387-47 Reviewed 10/13/2012 12:00 AM COMPREHEN METABOLIC PANEL Reviewed 10/13/2012 12:00 AM LIPID PANEL Reviewed 10/13/2012 12:00 AM GLYCOSYLATED HEMOGLOBIN TEST Reviewed 10/13/2012 12:00 AM MICROALBUMIN SEMIQUANT Reviewed 04/15/2010 12:00 AM MAMMOGRAM SCREENING Reviewed 12/06/2012 12:00 AM DRAIN/INJ JOINT/BURSA W/O US Reviewed 12/06/2012 12:00 AM Kenalog, Per 10 Mg [facility]#9686-7755-82 Reviewed 12/22/2012 12:00 AM TOTAL CORTISOL Reviewed 04/26/2013 12:00 AM DRAIN/INJ JOINT/BURSA W/O US Reviewed 04/26/2013 12:00 AM Kenalog, Per 10 Mg [facility]#4866-4380-88 Reviewed 05/10/2013 12:00 AM DRAIN/INJ JOINT/BURSA W/O US Reviewed 05/10/2013 12:00 AM Kenalog, Per 10 Mg [facility]#9472-5791-78 Reviewed 05/10/2013 12:00 AM DRAIN/INJ JOINT/BURSA W/O US Reviewed 05/10/2013 12:00 AM Kenalog, Per 10 Mg [facility]#9636-5810-44 Reviewed 05/28/2013 12:00 AM MAMMOGRAM SCREENING Reviewed [...] 12:00 AM Kenalog, Per 10 Mg [facility]#7087-3777-32 Reviewed 04/05/2014 12:00 AM COMPLETE CBC W/AUTO [...] Bilateral Hip Dec 06 2011 4:20PM Bursitis Fe2011 4:20PM Pain in joint; Knee Feb 6 2011 4:20PM Fibromyalgia Feb 2011 4:20PM Lumbago Dec 06 2011 4:20PM Cervicalgia Dec 06 2011 4:20PM Trochanteric Bursitis b 13 2011 [...] Mellitus, Type II b 2014 12:09PM Dysuria Dec 13 2014 12:09PM Gastroesophageal Reflux b 2014 [...] Policy Number Policy Group Number Start Date [facility] [id number] Saturday, 2015 [employer] [place] [id number] Saturday, 2009 [employer] [place] [id number] Wednesday, 2009 History of Encounters Visit Date Visit Type Provider 11/25/2016 Office visit Brannon Jackson DO 11/19/2016 Office visit Sandra Milton RESEARCH AGRICULTURAL ENGINEER 11/02/2016 Office visit Lakia Reina RESEARCH AGRICULTURAL ENGINEER 09/09/2016 Office visit Brannon Jackson DO 05/18/2016 [...] visit Cass BRAY 09/20/2014 Office visit Brannon Tidwellburt BALTAZAR 09/05/2014 Office visit Cass BRAY 07/29/2014 Office [...] 12/22/2012 Office visit Brannon Manuel DO 12/14/2012 [facility] Sandra Ca MD 12/12/2012 Office visit Brannon Manuel DO 12/12/2012 [facility] Sandra Ca MD 12/06/2012 Office visit Anirudh Conway MD 11/24/2012 Office visit Regina Mcnally RESEARCH AGRICULTURAL ENGINEER 10/12/2012 [facility] Anirudh Conway MD 10/10/2012 Office visit Brannon Manuel DO 09/18/2012 Office visit Anirudh Conway MD 09/01/2012 Office visit Brannon Manuel DO 08/21/2012 Office visit Brannon Manuel DO 08/01/2012 Office visit Brannon Manuel DO 07/11/2012 Office visit Regina Mcnally RESEARCH AGRICULTURAL ENGINEER 06/14/2012 Office visit Anirudh Conway MD 05/25/2012 Office visit Anirudh Conway MD 05/04/2012 Office visit Brannon Jackson DO 12/23/2011 Office visit Anirudh Conway MD 12/16/2011 Office visit Brannon Jackson DO 12/06/2011 Office visit Anirudh Conway MD 11/11/2011 Office visit Brannon Manuel DO 10/28/2011 Office visit Brannon Maunel DO 10/22/2011 [facility] Valery [...] Manuel DO 08/18/2010 Office visit Regina Mcnally RESEARCH AGRICULTURAL ENGINEER 02/03/2010 Office visit Brannon Manuel DO 12/02/2009 Office visit Brannon Manuel DO 06/27/2009 Office visit Brannon Manuel DO
--- OUTSIDE RECORDS SUMMARY | 2018-10-25 10:44 | XMS REPORT ---
Author Author Brannon Jackson [facility] Address [address] [place], [place] [address] Care Team Providers Care Wire Winding Machine Tender Name Role Phone Brannon Jackson PCP Unavailable [...] Hair, Skin,and Nails one tablet daily losartan-hydrochlorothiazide 100-25 mg oral tablet 04/07/2015 04/01/2016 [...] 2 times per day for 7 days [place] Thyroid 120 mg oral tablet 12/14/2012 12/09/2013 [...] times per day for 7 days alprazolam 0.5 mg oral tablet 02/05/2016 [...] Reviewed 12/13/2011 12:00 AM Kenalog per 10Mg [facility]#[address]-99(Man) Reviewed 12/23/2011 12:00 AM DRAIN/INJ JOINT/BURSA W/O US Reviewed 12/23/2011 12:00 AM Kenalog 40 Mg [facility]#3060-7419-39 Reviewed 05/25/2012 12:00 AM INJ TRIGGER POINT 1/2 MUSCL Reviewed 05/25/2012 12:00 AM Kenalog, Per [address] [facility]#2850-2775-89 Reviewed 06/14/2012 12:00 AM DRAIN/INJ JOINT/BURSA W/O US Reviewed 06/14/2012 12:00 AM Kenalog, Per [address] [facility]#1819-9930-81 Reviewed 07/11/2012 12:00 AM THER/PROPH/DIAG INJ SC/IM Reviewed 07/11/2012 12:00 AM Decadron [address] [facility]#[id number] (Manuel) Reviewed 07/11/2012 12:00 AM Depo-Medrol [address] [facility]#[id number]-Hcgettoq Reviewed 08/21/2012 12:00 AM ASSAY CARBOXYHB QUANT Reviewed 09/18/2012 12:00 AM DRAIN/INJ JOINT/BURSA W/O US Reviewed 09/18/2012 12:00 AM Kenalog, Per [address] [facility]#8166-2697-04 Reviewed 10/13/2012 12:00 AM COMPREHEN METABOLIC PANEL Reviewed 10/13/2012 12:00 AM LIPID PANEL Reviewed 10/13/2012 12:00 AM GLYCOSYLATED HEMOGLOBIN TEST Reviewed 10/13/2012 12:00 AM MICROALBUMIN SEMIQUANT Reviewed 04/15/2010 12:00 AM MAMMOGRAM SCREENING Reviewed 12/06/2012 12:00 AM DRAIN/INJ JOINT/BURSA W/O US Reviewed 12/06/2012 12:00 AM Kenalog, Per [address] [facility]#6905-1098-76 Reviewed 12/22/2012 12:00 AM TOTAL CORTISOL Reviewed 04/26/2013 12:00 AM DRAIN/INJ JOINT/BURSA W/O US Reviewed 04/26/2013 12:00 AM Kenalog, Per [address] [facility]#3768-0591-45 Reviewed 05/10/2013 12:00 AM DRAIN/INJ JOINT/BURSA W/O US Reviewed 05/10/2013 12:00 AM Kenalog, Per [address] [facility]#1001-7877-13 Reviewed 05/10/2013 12:00 AM DRAIN/INJ JOINT/BURSA W/O US Reviewed 05/10/2013 12:00 AM Kenalog, Per [address] [facility]#0386-1470-18 Reviewed 05/28/2013 12:00 AM MAMMOGRAM SCREENING Reviewed [...] Kenalog, Per [address] [facility]#9349-8090-60 Reviewed 04/05/2014 12:00 AM COMPLETE CBC W/AUTO [...] BILI 0.90 mg/dLCALCIUM 9.50 mg/dLeGFR >60 mL/min/1.73 [id number] 18.0 U/L 01/02/2014 10:02 AM GLUCOSE 134.0 [...] Start Date [facility] Gpa [id number] Saturday, 2015 [facility] [id number] Saturday, 2009 [facility] [id number] Wednesday, 2009 History of Encounters Visit Date [...] Mcnally APRN 10/12/2012 [facility] [...] Manuel DO 10/22/2011 [facility] Valery Cerna MD 10/21/2011 [facility] Valery Cerna MD 10/19/2011 Office visit Brannon Manuel DO 10/19/2011 [facility] [...]
[2018-10-25] MEDS ORDERED: morphine INJ 10 MG/ML 1ML (SYR OR VIAL) IVP ONE (10:45)
[2018-10-25] MEDS ORDERED: fentaNYL INJECTION 100 MCG/2 ML AMP IVP ONE (10:45)
--- OUTSIDE RECORDS SUMMARY | 2018-10-25 10:47 | XMS REPORT ---
Author Author Brannon Jackson [facility] Address [address] [place], [place] [id number] Care Team Providers Care Dynamic Balancer Name Role Phone Brannon Jackson PCP Unavailable [...] oral route every 6 hours as needed Name Start Date Expiration Date SIG Comments [...] 2 times per day for 7 days [place] Thyroid 120 mg oral tablet 12/14/2012 12/09/2013 [...] per 10Mg Im-[facility]#[address]-99(Man) Reviewed 12/23/2011 12:00 AM DRAIN/INJ JOINT/BURSA W/O US Reviewed 12/23/2011 12:00 AM Kenalog 40 Mg Im-[facility]#5423-1484-92 Reviewed 11/19/2016 12:00 AM X-RAY EXAM OF HAND Reviewed 01/19/2017 12:00 AM COMPLETE CBC W/AUTO DIFF WBC Reviewed 01/19/2017 12:00 AM COMPREHEN METABOLIC PANEL Reviewed 01/19/2017 12:00 AM GLYCOSYLATED HEMOGLOBIN TEST Reviewed 05/25/2012 12:00 AM INJ TRIGGER POINT 1/2 MUSCL Reviewed 05/25/2012 12:00 AM Kenalog, Per 10 Mg [facility]#7462-7364-87 Reviewed 06/14/2012 12:00 AM DRAIN/INJ JOINT/BURSA W/O US Reviewed 06/14/2012 12:00 AM Kenalog, Per 10 Mg [facility]#3696-9134-25 Reviewed 07/11/2012 12:00 AM THER/PROPH/DIAG INJ SC/IM Reviewed 07/11/2012 12:00 AM Decadron 1 mg [facility]#[id number] (Manuel) Reviewed 07/11/2012 12:00 AM Depo-Medrol 80 mg [facility]#[id number]-Ijpahzbu Reviewed 08/21/2012 12:00 AM ASSAY CARBOXYHB QUANT Reviewed 09/18/2012 12:00 AM DRAIN/INJ JOINT/BURSA W/O US Reviewed 09/18/2012 12:00 AM Kenalog, Per 10 Mg [facility]#2238-2786-48 Reviewed 10/13/2012 12:00 AM COMPREHEN METABOLIC PANEL Reviewed 10/13/2012 12:00 AM LIPID PANEL Reviewed 10/13/2012 12:00 AM GLYCOSYLATED HEMOGLOBIN TEST Reviewed 10/13/2012 12:00 AM MICROALBUMIN SEMIQUANT Reviewed 04/15/2010 12:00 AM MAMMOGRAM SCREENING Reviewed 12/06/2012 12:00 AM DRAIN/INJ JOINT/BURSA W/O US Reviewed 12/06/2012 12:00 AM Kenalog, Per 10 Mg [facility]#3832-4048-43 Reviewed 12/22/2012 12:00 AM TOTAL CORTISOL Reviewed 04/26/2013 12:00 AM DRAIN/INJ JOINT/BURSA W/O US Reviewed 04/26/2013 12:00 AM Kenalog, Per 10 Mg [facility]#7224-8430-19 Reviewed 05/10/2013 12:00 AM DRAIN/INJ JOINT/BURSA W/O US Reviewed 05/10/2013 12:00 AM Kenalog, Per 10 Mg [facility]#6154-1003-42 Reviewed 05/10/2013 12:00 AM DRAIN/INJ JOINT/BURSA W/O US Reviewed 05/10/2013 12:00 AM Kenalog, Per 10 Mg [facility]#4901-7002-91 Reviewed 05/28/2013 12:00 AM MAMMOGRAM SCREENING Reviewed [...] 03/05/2014 12:00 AM Kenalog, Per 10 Mg [place]#1195-7232-83 Reviewed 04/05/2014 12:00 AM COMPLETE CBC W/AUTO [...] 06 2011 4:20PM Pain in joint; Knee b 2011 4:20PM Fibromyalgia Dec 06 2011 4:20PM [...] Date [facility] Gpa [id number] Saturday, 2015 [facility] [facility] [id number] Saturday, 2009 [employer] [facility] [id number] Wednesday, 2009 History of Encounters Visit Date Visit Type Provider 05/09/2017 Office visit Brannon Jackson DO 03/08/2017 Office visit Brannon Jackson DO 01/25/2017 Office visit Brannon Jackson DO 01/19/2017 Office visit Regina Mcnally ALUMNI RELATIONS OFFICER 01/04/2017 Procedures Reagan Lehman DO 12/24/2016 Office [...] Nurse visit Cass ARCINIEGAP 04/28/2015 Office visit 04/28/2015 Office visit Brannon [...] Conway MD 11/24/2012 Office visit Regina Mcnally ALUMNI RELATIONS OFFICER 10/12/2012 [facility] Anirudh Conway MD 10/10/2012 Office visit Brannon Jackson DO 09/18/2012 Office visit Anirudh Conway MD 09/01/2012 Office visit Brannon Manuel DO 08/21/2012 Office visit Brannon Jackson DO 08/01/2012 Office visit Brannon Jackson DO 07/11/2012 Office visit Regina Mcnally ALUMNI RELATIONS OFFICER 06/14/2012 Office visit Anirudh Conway MD 05/25/2012 Office visit Anirudh Conway MD 05/04/2012 Office visit Brannon Jackson DO 12/23/2011 Office visit Anirudh Conway MD 12/16/2011 Office visit Brannon Jackson DO 12/06/2011 Office visit Anirudh Conway MD 11/11/2011 Office visit Brannon Jackson DO 10/28/2011 Office visit Brannon Jackson DO 10/22/2011 [facility] Valery Cerna MD 10/21/2011 [facility] Valery Cerna MD 10/19/2011 Office visit Brannon Jackson DO 10/19/2011 [facility] Anderson Dawkins MD 10/07/2011 Office visit Brannon Jackson DO 04/27/2011 Office visit Brannon Jackson DO 04/16/2011 Office visit Brannon Jackson DO 12/18/2010 Office visit Brannon Jackson DO 11/17/2010 Office visit Brannon Jackson DO 10/08/2010 Office visit Brannon Jackson DO 08/18/2010 Office visit Regina Mcnally ALUMNI RELATIONS OFFICER 02/03/2010 Office visit Brannon Jackson DO 12/02/2009 Office visit Brannon Jackson DO 06/27/2009 Office visit Brannon Jackson DO
--- OUTSIDE RECORDS SUMMARY | 2018-10-25 10:50 | XMS REPORT ---
Author Author Brannon Jackson [facility] Address [address] [place], [place] [id number] Care Team Providers Care Interceptor Operator Name Role Phone Brannon Jackson PCP [...] oral tablets,dose pack 11/09/2017 take as directed [employer] Verio miscellaneous strip 11/11/2017 Test glucose 4 [...] 2 times per day for 7 days [place] Thyroid 120 mg oral tablet 12/14/2012 12/09/2013 [...] Kenalog per 10Mg Im-[facility]#[address]-67(Man) Reviewed 12/23/2011 12:00 AM DRAIN/INJ JOINT/BURSA W/O US Reviewed 12/23/2011 12:00 AM Kenalog 40 Mg Im-[facility]#0303-5416-05 Reviewed 11/19/2016 12:00 AM X-RAY EXAM OF HAND Reviewed 01/19/2017 12:00 AM COMPLETE CBC W/AUTO DIFF WBC Reviewed 01/19/2017 12:00 AM COMPREHEN METABOLIC PANEL Reviewed 01/19/2017 12:00 AM GLYCOSYLATED HEMOGLOBIN TEST Reviewed 05/25/2012 12:00 AM INJ TRIGGER POINT 1/2 MUSCL Reviewed 05/25/2012 12:00 AM Kenalog, Per [address] [facility]#8654-2557-26 Reviewed 06/14/2012 12:00 AM DRAIN/INJ JOINT/BURSA W/O US Reviewed 06/14/2012 12:00 AM Kenalog, Per [address] [facility]#8982-5744-36 Reviewed 05/09/2017 12:00 AM MAMMOGRAPHY SCREENING, DIGITAL Reviewed 07/11/2012 12:00 AM THER/PROPH/DIAG INJ SC/IM Reviewed 07/11/2012 12:00 AM Decadron [address] [facility]#[id number] (Manuel) Reviewed 07/11/2012 12:00 AM Depo-Medrol [address] [facility]#[id number]-Qglpocmm Reviewed 08/21/2012 12:00 AM ASSAY CARBOXYHB QUANT Reviewed 09/01/2017 12:00 AM RADIOLOGIC EXAMINATION KNEE 1/2 VIEWS Reviewed 09/18/2012 12:00 AM DRAIN/INJ JOINT/BURSA W/O US Reviewed 09/18/2012 12:00 AM Kenalog, Per [address] [facility]#9419-8612-67 Reviewed 10/25/2017 12:00 AM RADIOLOGIC EXAMINATION KNEE [...] [address] [facility]#4851-3322-95 Reviewed 12/22/2012 12:00 AM TOTAL CORTISOL Reviewed 04/26/2013 12:00 AM DRAIN/INJ JOINT/BURSA W/O US Reviewed 04/26/2013 12:00 AM Kenalog, Per [address] [facility]#9682-2093-46 Reviewed 05/10/2013 12:00 AM DRAIN/INJ JOINT/BURSA W/O US Reviewed 05/10/2013 12:00 AM Kenalog, Per [address] [facility]#8713-9883-89 Reviewed 05/10/2013 12:00 AM DRAIN/INJ JOINT/BURSA W/O US Reviewed 05/10/2013 12:00 AM Kenalog, Per [address] [facility]#4741-4330-75 Reviewed 05/28/2013 12:00 AM MAMMOGRAM SCREENING Reviewed [...] [address] [facility]#8626-6434-03 Reviewed 04/05/2014 12:00 AM COMPLETE CBC W/AUTO [...] Number Start Date [facility] Gpa [id number] Saturday, 2015 [employer] [facility] [place] [id number] Saturday, 2009 [employer] [facility] [place] [id number] Wednesday, 2009 History of Encounters Visit Date Visit Type Provider 12/02/2017 Office visit Brannon Jackson DO 11/11/2017 Office visit Brannon Jackson DO 11/09/2017 Office visit Harjinder Paiz PA-C 10/28/2017 Office visit Lakia Reina APRN 10/25/2017 Office visit Regina Mcnally DIRECTOR OF FAMILY SERVICE CENTER 10/05/2017 Office visit Regina Mcnally DIRECTOR OF FAMILY SERVICE CENTER 09/01/2017 Office visit Brannon Manuel DO 06/29/2017 Office visit Karyna Gilbert DIRECTOR OF FAMILY SERVICE CENTER 06/18/2017 Office visit Karyna Gilbert DIRECTOR OF FAMILY SERVICE CENTER 05/09/2017 Office visit Brannon Simpsonte DO 03/08/2017 Office visit Brannon Manuel DO 01/25/2017 Office visit Brannon Manuel DO 01/19/2017 Office visit Regina Mcnally DIRECTOR OF FAMILY SERVICE CENTER 01/04/2017 Procedures Reagan Lehman DO 12/24/2016 Office visit Brannon Manuel DO 12/23/2016 Surgery Reagan Bouman DO 12/14/2016 Office visit Reagan Bouman DO 11/25/2016 Office visit Brannon Manuel DO 11/19/2016 Office visit Sandra Yoan DIRECTOR OF FAMILY SERVICE CENTER 11/02/2016 Office visit Lakia Reina DIRECTOR OF FAMILY SERVICE CENTER 09/09/2016 Office visit Brannon Manuel DO 05/18/2016 [...] BRAY 02/05/2015 Nurse visit Cass BRAY 12/17/2014 [facility] Dinesh Zhu MD 12/17/2014 Office visit Brannon Manuel DO 12/12/2014 Office visit Cass BRAY 10/29/2014 Office visit Cass ARCINIEGAP 10/02/2014 Office visit Cass ARCINIEGAP 09/20/2014 Office visit Brannon Manuel DO 09/05/2014 Office visit Cass ARCINIEGAP 07/29/2014 Office visit Cass ARCINIEGAP 07/18/2014 Office visit Brannon Jackson DO 07/03/2014 Office visit Rob Ruiz DIRECTOR OF FAMILY SERVICE CENTER 06/11/2014 Office visit Cass ARCINIEGAP 04/29/2014 Office visit Cass ARCINIEGAP 04/29/2014 Office visit Brannon Jackson DO 04/05/2014 Office visit Harjinder Paiz PA-C 02/25/2014 Office visit Cass ARCINIEGAP 01/02/2014 Office visit Cass BRAY 12/18/2013 Office visit Cass BRAY 09/13/2013 Office visit Brannon Jackson DO 08/27/2013 Office visit Regina Mcnally DIRECTOR OF FAMILY SERVICE CENTER 08/17/2013 Office visit Ray Tripathi DIRECTOR OF FAMILY SERVICE CENTER 05/21/2013 Office visit Brannon Jackson DO 05/10/2013 Office visit Anirudh Conway MD 04/26/2013 Office visit Anirudh Conway MD 12/22/2012 Office visit Brannon Jackson DO 12/14/2012 [facility] Sandra Ca MD 12/12/2012 Office visit Brannon Jackson DO 12/12/2012 [facility] Sandra Ca MD 12/06/2012 Office visit Anirudh Conway MD 11/24/2012 Office visit Regina Mcnally DIRECTOR OF FAMILY SERVICE CENTER 10/12/2012 [facility] Anirudh Conway MD 10/10/2012 Office visit Brannon Jackson DO 09/18/2012 Office visit Anirudh Conway MD 09/01/2012 Office visit Brannon Jackson DO 08/21/2012 Office visit Brannon Jackson DO 08/01/2012 Office visit Brannon Jackson DO 07/11/2012 Office visit Regina Mcnally DIRECTOR OF FAMILY SERVICE CENTER 06/14/2012 Office visit Anirudh Conway MD 05/25/2012 [...]
--- OUTSIDE RECORDS SUMMARY | 2018-10-25 10:52 | XMS REPORT ---
Author Author Cass Arellano [facility] Address [address] [place], [place] [address] Care Team Providers Care Regional Sales Trainer Name Role Phone Cass Arellano PCP Allergies [...] 3 mo supply for mail order through [employer] amitriptyline 10 mg oral tablet 08/29/2014 11/22/2015 [...] 2 times per day for 7 days [place] Thyroid 120 mg oral tablet 12/14/2012 12/09/2013 [...] 12:00 AM Kenalog per 10Mg Im-[facility]#[address]-43(Man) Reviewed 12/23/2011 12:00 AM DRAIN/INJ JOINT/BURSA W/O US Reviewed 12/23/2011 12:00 AM Kenalog 40 Mg Im-[facility]#5899-2267-14 Reviewed 05/25/2012 12:00 AM INJ TRIGGER POINT 1/2 MUSCL Reviewed 05/25/2012 12:00 AM Kenalog, Per 10 Mg [facility]#5402-0583-30 Reviewed 06/14/2012 12:00 AM DRAIN/INJ JOINT/BURSA W/O US Reviewed 06/14/2012 12:00 AM Kenalog, Per 10 Mg [facility]#2966-8372-21 Reviewed 07/11/2012 12:00 AM THER/PROPH/DIAG INJ SC/IM Reviewed 07/11/2012 12:00 AM Decadron 1 mg [facility]#[id number] (Manuel) Reviewed 07/11/2012 12:00 AM Depo-Medrol 80 mg [facility]#[id number]-Xbqlttju Reviewed 08/21/2012 12:00 AM ASSAY CARBOXYHB QUANT Reviewed 09/18/2012 12:00 AM DRAIN/INJ JOINT/BURSA W/O US Reviewed 09/18/2012 12:00 AM Kenalog, Per 10 Mg [facility]#8211-3440-10 Reviewed 10/13/2012 12:00 AM COMPREHEN METABOLIC PANEL Reviewed 10/13/2012 12:00 AM LIPID PANEL Reviewed 10/13/2012 12:00 AM GLYCOSYLATED HEMOGLOBIN TEST Reviewed 10/13/2012 12:00 AM MICROALBUMIN SEMIQUANT Reviewed 04/15/2010 12:00 AM MAMMOGRAM SCREENING Reviewed 12/06/2012 12:00 AM DRAIN/INJ JOINT/BURSA W/O US Reviewed 12/06/2012 12:00 AM Kenalog, Per 10 Mg [facility]#4276-1543-17 Reviewed 12/22/2012 12:00 AM TOTAL CORTISOL Reviewed 04/26/2013 12:00 AM DRAIN/INJ JOINT/BURSA W/O US Reviewed 04/26/2013 12:00 AM Kenalog, Per 10 Mg [facility]#2789-7983-78 Reviewed 05/10/2013 12:00 AM DRAIN/INJ JOINT/BURSA W/O US Reviewed 05/10/2013 12:00 AM Kenalog, Per 10 Mg [facility]#8511-8955-97 Reviewed 05/10/2013 12:00 AM DRAIN/INJ JOINT/BURSA W/O US Reviewed 05/10/2013 12:00 AM Kenalog, Per 10 Mg [facility]#4408-8223-98 Reviewed 05/28/2013 12:00 AM MAMMOGRAM SCREENING Reviewed [...] 03/05/2014 12:00 AM Kenalog, Per 10 Mg [facility]#6582-3663-59 Reviewed 04/05/2014 12:00 AM COMPLETE CBC W/AUTO [...] BILI 0.90 mg/dLCALCIUM 9.50 mg/dLeGFR >60 mL/min/1.73 [id number] 18.0 U/L 01/02/2014 10:02 AM GLUCOSE 134.0 [...] Policy Number Policy Group Number Start Date [facility] [id number] Wednesday, 2009 [facility] [id number] Saturday, 2009 History of Encounters Visit Date [...] Simpsonte DO 07/11/2012 Office visit Regina Mcnally BLOW MOLD OPERATOR 06/14/2012 Office visit Anirudh Conway MD 05/25/2012 Office visit Anirudh Conway MD 05/04/2012 Office visit Brannon Jackson DO 12/23/2011 Office visit Anirudh Conway MD 12/16/2011 Office visit Brannon Jackson DO 12/06/2011 Office visit Anirudh Conway MD 11/11/2011 Office visit Brannon Jackson DO 10/28/2011 Office visit Brannon Jackson DO 10/22/2011 [facility] Cerna [facility] 10/21/2011 [facility] 10/19/2011 Office visit Brannon Jackson DO 10/19/2011 [facility] Anderson Dawkins MD 10/07/2011 Office visit Brannon Manuel DO 04/27/2011 Office visit Brannon Manuel DO 04/16/2011 Office visit Brannon Jackson DO 12/18/2010 Office visit Brannon Jackson DO 11/17/2010 Office visit Brannon Manuel DO 10/08/2010 Office visit Brannon Simpsonte DO 08/18/2010 Office visit Regina Mcnally BLOW MOLD OPERATOR 02/03/2010 Office visit Brannon Simpsonte DO 12/02/2009 Office visit Brannon Simpsonte DO 06/27/2009 Office visit Brannon Jackson DO
--- OUTSIDE RECORDS SUMMARY | 2018-10-25 10:55 | XMS REPORT ---
Author Author Brannon Jackson [facility] Address [address] [place], [place] [phone] Care Team Providers Care Supervisor Computer Operations Name Role Phone Brannon Jackson PCP Brannon [...] 2 times per day for 7 days [place] Thyroid 120 mg oral tablet 12/14/2012 12/09/2013 [...] Reviewed 12/13/2011 12:00 AM Kenalog per 10Mg Im-[facility]#[address]-63(Man) Reviewed 12/23/2011 12:00 AM DRAIN/INJ JOINT/BURSA W/O US Reviewed 12/23/2011 12:00 AM Kenalog 40 Mg [facility]#3765-3721-64 Reviewed 11/19/2016 12:00 AM X-RAY EXAM OF HAND Reviewed 01/19/2017 12:00 AM COMPLETE CBC W/AUTO DIFF WBC Reviewed 01/19/2017 12:00 AM COMPREHEN METABOLIC PANEL Reviewed 01/19/2017 12:00 AM GLYCOSYLATED HEMOGLOBIN TEST Reviewed 05/25/2012 12:00 AM INJ TRIGGER POINT 1/2 MUSCL Reviewed 05/25/2012 12:00 AM Kenalog, Per 10 Mg [facility]#9437-2873-05 Reviewed 06/14/2012 12:00 AM DRAIN/INJ JOINT/BURSA W/O US Reviewed 06/14/2012 12:00 AM Kenalog, Per 10 Mg [facility]#7011-8038-52 Reviewed 05/09/2017 12:00 AM MAMMOGRAPHY SCREENING, DIGITAL Reviewed 07/11/2012 12:00 AM THER/PROPH/DIAG INJ SC/IM Reviewed 07/11/2012 12:00 AM Decadron 1 mg [facility]#[id number] (Manuel) Reviewed 07/11/2012 12:00 AM Depo-Medrol 80 mg [facility]#[id number]-Cyfioqeo Reviewed 08/21/2012 12:00 AM ASSAY CARBOXYHB QUANT Reviewed 09/01/2017 12:00 AM RADIOLOGIC EXAMINATION KNEE 1/2 VIEWS Reviewed 09/18/2012 12:00 AM DRAIN/INJ JOINT/BURSA W/O US Reviewed 09/18/2012 12:00 AM Kenalog, Per 10 Mg [facility]#4257-7367-62 Reviewed 10/25/2017 12:00 AM RADIOLOGIC EXAMINATION KNEE [...] Reviewed 01/03/2018 12:00 AM COMPREHEN METABOLIC PANEL Returned 01/03/2018 12:00 AM LIPID PANEL Returned 01/03/2018 12:00 AM GLYCOSYLATED HEMOGLOBIN TEST Returned 01/03/2018 12:00 AM VITAMIN B-12 Returned 04/15/2010 12:00 AM MAMMOGRAM SCREENING Reviewed 12/06/2012 12:00 AM DRAIN/INJ JOINT/BURSA W/O US Reviewed 12/06/2012 12:00 AM Kenalog, Per 10 Mg [facility]#0873-9525-67 Reviewed 12/22/2012 12:00 AM TOTAL CORTISOL Reviewed 04/26/2013 12:00 AM DRAIN/INJ JOINT/BURSA W/O US Reviewed 04/26/2013 12:00 AM Kenalog, Per 10 Mg [facility]#2445-9482-71 Reviewed 05/10/2013 12:00 AM DRAIN/INJ JOINT/BURSA W/O US Reviewed 05/10/2013 12:00 AM Kenalog, Per 10 Mg [facility]#6929-7997-75 Reviewed 05/10/2013 12:00 AM DRAIN/INJ JOINT/BURSA W/O US Reviewed 05/10/2013 12:00 AM Kenalog, Per 10 Mg [facility]#3298-7955-37 Reviewed 05/28/2013 12:00 AM MAMMOGRAM SCREENING Reviewed [...] 12:00 AM Kenalog, Per 10 Mg [facility]#6322-7280-17 Reviewed 04/05/2014 12:00 AM COMPLETE CBC W/AUTO [...] 3:43PM Pain in joint; Bilateral Hip Feb 2012 4:20PM Bursitis Feb 6 2011 4:20PM Pain [...] region-right Nov 24 2012 10:47AM Bursitis b 6 2012 3:44PM Diabetes Mellitus, Type II [...] Dysuria Dec 13 2014 12:09PM Gastroesophageal Reflux Feb 2014 [...] Policy Number Policy Group Number Start Date [facility] Gpa [id number] Saturday, 2015 [employer] [facility] [id number] Saturday, 2009 [facility] [id number] Wednesday, 2009 History of Encounters Visit Date Visit Type Provider 12/02/2017 Office visit Brannon Jackson DO 11/11/2017 Office visit Brannon Manuel DO 11/09/2017 Office visit Harjinder Paiz PA-C 10/28/2017 Office visit Lakia Reina MEDICARE SPECIALIST 10/25/2017 Office visit Regina Mncally MEDICARE SPECIALIST 10/05/2017 Office visit Regina Mcnally MEDICARE SPECIALIST 09/01/2017 Office visit Brannon Manuel DO 06/29/2017 Office visit Karyna Gilbetr MEDICARE SPECIALIST 06/18/2017 Office visit Karyna Gilbert MEDICARE SPECIALIST 05/09/2017 Office visit Brannon Manuel DO 03/08/2017 Office visit Brannon Manuel DO 01/25/2017 Office visit Brannon Manuel DO 01/19/2017 Office visit Regina Mcnally MEDICARE SPECIALIST 01/04/2017 Procedures Reagan Lehman DO 12/24/2016 Office visit Brannon Jackson DO 12/23/2016 Surgery Reagan Lehman DO 12/14/2016 Office visit Reagan Lehman DO 11/25/2016 Office visit Brannon Manuel DO 11/19/2016 Office visit Sandra Yoan MEDICARE SPECIALIST 11/02/2016 Office visit Lakia Reina MEDICARE SPECIALIST 09/09/2016 Office visit Brannon Manuel DO [...] Brannon Manuel DO 03/10/2015 Office visit Cass ARCINIEGAP 02/25/2015 [...] 12/22/2012 Office visit Brannon Jackson DO 12/14/2012 [facility] Sandra Ca MD 12/12/2012 Office visit Brannon [...] Brannon Jackson DO 04/16/2011 Office visit Brannon Manuel DO 12/18/2010 Office visit Brannon Jackson DO 11/17/2010 Office visit Brannon Jackson DO 10/08/2010 Office visit Brannon Jackson DO 08/18/2010 Office visit Regina Mcnally APRN 02/03/2010 Office visit Brannon Jackson DO 12/02/2009 Office visit Brannon Jackson DO 06/27/2009 Office visit Brannon Jackson DO
--- OUTSIDE RECORDS SUMMARY | 2018-10-25 10:59 | XMS REPORT ---
Author Author Brannon Jackson [facility] Address [address] [place], [place] [id number] Care Team Providers Care Soaker Soda Worker Name Role Phone Brannon Jackson PCP Brannon [...] oral tablets,dose pack 11/09/2017 take as directed SinDelantalTouch Verio miscellaneous strip 11/11/2017 Test glucose 4 [...] 2 times per day for 7 days [place] Thyroid 120 mg oral tablet 12/14/2012 12/09/2013 [...] HC BMI BSA BMI Percentile O2 Sat(%) 11/11/2017 9:28:00 AM 150 mmHg 88 mmHg [...] AM Kenalog per 10Mg Im-[facility]#[address]-50(Man) Reviewed 12/23/2011 12:00 AM DRAIN/INJ JOINT/BURSA W/O US Reviewed 12/23/2011 12:00 AM Kenalog 40 Mg [facility]#9829-8239-79 Reviewed 11/19/2016 12:00 AM X-RAY EXAM OF HAND Reviewed 01/19/2017 12:00 AM COMPLETE CBC W/AUTO DIFF WBC Reviewed 01/19/2017 12:00 AM COMPREHEN METABOLIC PANEL Reviewed 01/19/2017 12:00 AM GLYCOSYLATED HEMOGLOBIN TEST Reviewed 05/25/2012 12:00 AM INJ TRIGGER POINT 1/2 MUSCL Reviewed 05/25/2012 12:00 AM Kenalog, Per 10 Mg [facility]#7246-3384-80 Reviewed 06/14/2012 12:00 AM DRAIN/INJ JOINT/BURSA W/O US Reviewed 06/14/2012 12:00 AM Kenalog, Per 10 Mg [facility]#7559-2636-27 Reviewed 05/09/2017 12:00 AM MAMMOGRAPHY SCREENING, DIGITAL Reviewed 07/11/2012 12:00 AM THER/PROPH/DIAG INJ SC/IM Reviewed 07/11/2012 12:00 AM Decadron 1 mg [facility]#[id number] (Manuel) Reviewed 07/11/2012 12:00 AM Depo-Medrol 80 mg [facility]#[id number]-Tksjqqhf Reviewed 08/21/2012 12:00 AM ASSAY CARBOXYHB QUANT Reviewed 09/01/2017 12:00 AM RADIOLOGIC EXAMINATION KNEE 1/2 VIEWS Reviewed 09/18/2012 12:00 AM DRAIN/INJ JOINT/BURSA W/O US Reviewed 09/18/2012 12:00 AM Kenalog, Per 10 Mg [facility]#3928-5391-90 Reviewed 10/25/2017 12:00 AM RADIOLOGIC EXAMINATION KNEE 3 VIEWS Reviewed 10/13/2012 12:00 AM COMPREHEN METABOLIC PANEL Reviewed 10/13/2012 12:00 AM LIPID PANEL Reviewed 10/13/2012 12:00 AM GLYCOSYLATED HEMOGLOBIN TEST Reviewed 10/13/2012 12:00 AM MICROALBUMIN SEMIQUANT Reviewed 11/09/2017 12:00 AM RADEX SPINE LUMBOSACRAL 2/3 VIEWS Reviewed 04/15/2010 12:00 AM MAMMOGRAM SCREENING Reviewed 12/06/2012 12:00 AM DRAIN/INJ JOINT/BURSA W/O US Reviewed 12/06/2012 12:00 AM Kenalog, Per 10 Mg [facility]#1986-0197-43 Reviewed 12/22/2012 12:00 AM TOTAL CORTISOL Reviewed 04/26/2013 12:00 AM DRAIN/INJ JOINT/BURSA W/O US Reviewed 04/26/2013 12:00 AM Kenalog, Per 10 Mg [facility]#4194-1803-34 Reviewed 05/10/2013 12:00 AM DRAIN/INJ JOINT/BURSA W/O US Reviewed 05/10/2013 12:00 AM Kenalog, Per 10 Mg [facility]#9015-3473-56 Reviewed 05/10/2013 12:00 AM DRAIN/INJ JOINT/BURSA W/O US Reviewed 05/10/2013 12:00 AM Kenalog, Per 10 Mg [facility]#7721-1759-03 Reviewed 05/28/2013 12:00 AM MAMMOGRAM SCREENING Reviewed [...] 12:00 AM Kenalog, Per 10 Mg [facility]#1016-0335-99 Reviewed 04/05/2014 12:00 AM COMPLETE CBC W/AUTO [...] 4:20PM Lumbago Feb 2011 4:20PM Cervicalgia Feb 6 2011 4:20PM Trochanteric Bursitis Feb 13 2011 9:26AM Insomnia Dec 16 2011 3:26PM Dermatitis Dec 16 2011 3:26PM Otitis Externa, Acute - Right Dec 16 2011 3:26PM Pain in joint; Knee Dec 23 2011 11:24AM Fibromyalgia b 2011 11:24AM Lumbago Dec 23 2011 11:24AM Cervicalgia Dec 23 2011 11:24AM Osteoarthritis of knee Feb 23 2012 1:04PM Diabetes Mellitus, Type II May 04 [...] Right hip pain Nov 11 2017 9:30AM Payers Insurance Name Company Name Plan Name Plan Number Policy Number Policy Group Number Start Date [employer] [id number] Saturday, 2015 [employer]cbs [facility] [id number] Saturday, 2009 [employer]BS [employer] [facility] [id number] Wednesday, 2009 History of Encounters Visit Date Visit Type Provider 11/11/2017 Office visit Brannon Jackson DO 11/09/2017 Office visit Harjinder Paiz PA-C 10/28/2017 Office visit Lakia Reina ARCHITECTURAL ENGINEER 10/25/2017 Office visit Regina Mcnally ARCHITECTURAL ENGINEER 10/05/2017 Office visit Regina Mcnally ARCHITECTURAL ENGINEER 09/01/2017 Office visit Brannon Jackson DO 06/29/2017 Office visit Karyna Gilbert ARCHITECTURAL ENGINEER 06/18/2017 Office visit Karyna Gilbert ARCHITECTURAL ENGINEER 05/09/2017 Office visit Brannon Jackson DO 03/08/2017 Office visit Brannon Jackson DO 01/25/2017 Office visit Brannon Jackson DO 01/19/2017 Office visit Regina Mcnally ARCHITECTURAL ENGINEER 01/04/2017 Procedures Reagan Lehman DO 12/24/2016 Office visit Brannon Jackson DO 12/23/2016 Surgery Reagan Lehman DO 12/14/2016 Office visit Reagan Guzmanuman DO 11/25/2016 Office visit Brannon Jackson DO 11/19/2016 Office visit Sandra Keanedez ARCHITECTURAL ENGINEER 11/02/2016 Office visit Lakia Reina ARCHITECTURAL ENGINEER 09/09/2016 Office visit Brannon Manuel DO 05/18/2016 Office visit Brannon Manuel DO 05/05/2016 Office visit 05/05/2016 Office visit Brannon Manuel DO 02/05/2016 Office visit Brannon Manuel DO 12/09/2015 Voided Cass BRAY 10/13/2015 Office visit Brannon Manuel DO 09/18/2015 Nurse visit Cass BRAY 09/03/2015 Procedures Reagan Guzmanlois DO 08/29/2015 Office visit Brannon Tidwellhite DO [...] Jackson DO 07/03/2014 Office visit Rob Ruiz ARCHITECTURAL ENGINEER 06/11/2014 Office visit Cass Arellano HOSPITAL INTERN 04/29/2014 Office visit Cass Arellano HOSPITAL INTERN 04/29/2014 Office visit Brannon Manuel DO 04/05/2014 Office visit Harjinder Paiz PA-C 02/25/2014 Office visit Cass Arellano HOSPITAL INTERN 01/02/2014 Office visit Cass Arellano HOSPITAL INTERN 12/18/2013 Office visit Cass Arellano HOSPITAL INTERN 09/13/2013 Office visit Brannon Jackson DO 08/27/2013 Office visit Regina Mcnally ARCHITECTURAL ENGINEER 08/17/2013 Office visit Ray Tripathi ARCHITECTURAL ENGINEER 05/21/2013 Office visit Brannon Jackson DO [...] Conway MD 11/24/2012 Office visit Regina Mcnally ARCHITECTURAL ENGINEER 10/12/2012 [facility] Anirudh Conway MD 10/10/2012 Office visit Brannon Jackson DO 09/18/2012 Office visit Anirudh Conway MD 09/01/2012 Office visit Brannon Jackson DO 08/21/2012 Office visit Brannon Jackson DO 08/01/2012 Office visit Brannon Jackson DO 07/11/2012 Office visit Regina Mcnally ARCHITECTURAL ENGINEER 06/14/2012 Office visit Anirudh Conway MD [...]
--- OUTSIDE RECORDS SUMMARY | 2018-10-25 11:01 | XMS REPORT ---
Author Author Brannon Jackson [facility] Address [address] [place], [place] [address] Care Team Providers Care Gum Cook Name Role Phone Brannon Jackson PCP Unavailable [...] mo supply for mail order through [employer] amitriptyline oral tablet 10 mg 08/29/2014 11/22/2015 [...] by oral route daily for 30 days [place] D Thyroid oral tablet 120 mg 12/14/2012 12/09/2013 [...] Active 12/18/2014 Vital Signs Date Time BP-Sys(mm[Hg] BP-Edbo(mm[Hg]) HR(bpm) RR(rpm) Temp WT HT HC BMI [...] BILI 0.90 mg/dLCALCIUM 9.50 mg/dLeGFR >60 mL/min/1.73 [id number] 18.0 U/L 01/02/2014 10:02 AM GLUCOSE 134.0 [...] Number Start Date [employer] [place] [id number] Wednesday, 2009 [employer] [place] [id number] Saturday, 2009 History of Encounters Visit Date [...] [place] DO 08/27/2013 Office visit Regina Mcnally UPKEEP MECHANIC 08/17/2013 Office visit Ray Tripathi UPKEEP MECHANIC 05/21/2013 Office visit Brannon Jackson DO 05/10/2013 Office visit Anirudh Conway MD 04/26/2013 Office visit Anirudh Conway MD 12/22/2012 Office visit Brannon Manuel DO 12/14/2012 [facility] Sandra Ca MD 12/12/2012 Office visit Brannon Manuel DO 12/12/2012 [facility] Sandra Ca MD 12/06/2012 Office visit Anirudh Conway MD 11/24/2012 Office visit Regina Mcnally UPKEEP MECHANIC 10/12/2012 [facility] Anirudh Conway MD 10/10/2012 Office visit Brannon Jackson DO 09/18/2012 Office visit Anirudh Conway MD 09/01/2012 Office visit Brannon Jackson DO 08/21/2012 Office visit Brannon Manuel DO 08/01/2012 Office visit Brannon Jacskon DO 07/11/2012 Office visit Regina Mcnally UPKEEP MECHANIC 06/14/2012 Office visit Anirudh Conway MD 05/25/2012 Office visit Anirudh Conway MD 05/04/2012 Office visit Brannon Jackson DO 12/23/2011 Office visit Anirudh Conway MD 12/16/2011 Office visit Brannon Jackson DO 12/06/2011 Office visit Anirudh Conway MD 11/11/2011 Office visit Brannon Manuel DO 10/28/2011 Office visit Brannon Manuel DO 10/22/2011 [facility] Valery Cerna MD 10/21/2011 [facility] Valery Cerna MD 10/19/2011 Office visit Brannon Manuel DO 10/19/2011 [facility] Anderson Dawkins MD 10/07/2011 Office visit Brannon Manuel DO 04/27/2011 Office visit Brannon Manuel DO 04/16/2011 Office visit Brannon Manuel DO 12/18/2010 Office visit Brannon Manuel DO 11/17/2010 Office visit Brannon Jackson DO 10/08/2010 Office visit Brannon Manuel DO 08/18/2010 Office visit Regina Mcnally UPKEEP MECHANIC 02/03/2010 Office visit Brannon Jackson DO 12/02/2009 Office visit Brannon Jackson DO 06/27/2009 Office visit Brannon Jackson DO
--- OUTSIDE RECORDS SUMMARY | 2018-10-25 11:04 | XMS REPORT ---
Author Author Lakia Reina [facility] Address [address] [place], [place] [address] Care Team Providers Care Hr Director Name Role Phone Lakia Reina PCP [...] 2 times per day for 7 days [place] Thyroid 120 mg oral tablet 12/14/2012 12/09/2013 [...] 4-6 hours as needed for pain Medrol (Amaod) 4 mg oral tablets,dose pack 03/26/2010 10/08/2010 [...] AM Kenalog per 10Mg Im-[facility]#[address]-74(Man) Reviewed 12/23/2011 12:00 AM DRAIN/INJ JOINT/BURSA W/O US Reviewed 12/23/2011 12:00 AM Kenalog 40 Mg [facility]#3563-6976-36 Reviewed 11/19/2016 12:00 AM X-RAY EXAM OF HAND Reviewed 01/19/2017 12:00 AM COMPLETE CBC W/AUTO DIFF WBC Reviewed 01/19/2017 12:00 AM COMPREHEN METABOLIC PANEL Reviewed 01/19/2017 12:00 AM GLYCOSYLATED HEMOGLOBIN TEST Reviewed 05/25/2012 12:00 AM INJ TRIGGER POINT 1/2 MUSCL Reviewed 05/25/2012 12:00 AM Kenalog, Per 10 Mg [facility]#0362-1290-33 Reviewed 06/14/2012 12:00 AM DRAIN/INJ JOINT/BURSA W/O US Reviewed 06/14/2012 12:00 AM Kenalog, Per 10 Mg [facility]#2346-9601-49 Reviewed 05/09/2017 12:00 AM MAMMOGRAPHY SCREENING, DIGITAL Reviewed 07/11/2012 12:00 AM THER/PROPH/DIAG INJ SC/IM Reviewed 07/11/2012 12:00 AM Decadron 1 mg [facility]#[id number] (Manuel) Reviewed 07/11/2012 12:00 AM Depo-Medrol 80 mg [facility]#[id number]-Daupebkb Reviewed 08/21/2012 12:00 AM ASSAY CARBOXYHB QUANT Reviewed 09/01/2017 12:00 AM RADIOLOGIC EXAMINATION KNEE 1/2 VIEWS Reviewed 09/18/2012 12:00 AM DRAIN/INJ JOINT/BURSA W/O US Reviewed 09/18/2012 12:00 AM Kenalog, Per 10 Mg [facility]#9875-6777-02 Reviewed 10/25/2017 12:00 AM RADIOLOGIC EXAMINATION KNEE 3 VIEWS Returned 10/13/2012 12:00 AM COMPREHEN METABOLIC PANEL Reviewed 10/13/2012 12:00 AM LIPID PANEL Reviewed 10/13/2012 12:00 AM GLYCOSYLATED HEMOGLOBIN TEST Reviewed 10/13/2012 12:00 AM MICROALBUMIN SEMIQUANT Reviewed 04/15/2010 12:00 AM MAMMOGRAM SCREENING Reviewed 12/06/2012 12:00 AM DRAIN/INJ JOINT/BURSA W/O US Reviewed 12/06/2012 12:00 AM Kenalog, Per 10 Mg [facility]#5170-6847-98 Reviewed 12/22/2012 12:00 AM TOTAL CORTISOL Reviewed 04/26/2013 12:00 AM DRAIN/INJ JOINT/BURSA W/O US Reviewed 04/26/2013 12:00 AM Kenalog, Per 10 Mg [facility]#5649-6913-60 Reviewed 05/10/2013 12:00 AM DRAIN/INJ JOINT/BURSA W/O US Reviewed 05/10/2013 12:00 AM Kenalog, Per 10 Mg [facility]#1229-5589-14 Reviewed 05/10/2013 12:00 AM DRAIN/INJ JOINT/BURSA W/O US Reviewed 05/10/2013 12:00 AM Kenalog, Per 10 Mg [facility]#0600-4195-23 Reviewed 05/28/2013 12:00 AM MAMMOGRAM SCREENING Reviewed [...] Kenalog, Per 10 Mg [facility]#3659-3202-62 Reviewed 04/05/2014 12:00 AM COMPLETE CBC W/AUTO [...] Policy Group Number Start Date Gpa Gpa [id number] Saturday, 2015 [employer] [place] [id number] Saturday, 2009 [employer] [place] [id number] Wednesday, 2009 History of Encounters Visit Date Visit Type Provider 10/28/2017 Office visit Lakia Reina WASH OIL PUMP OPERATOR HELPER 10/25/2017 Office visit Regina Mcnally WASH OIL PUMP OPERATOR HELPER 10/05/2017 Office visit Regina Mcnally WASH OIL PUMP OPERATOR HELPER 09/01/2017 Office visit Brannon Jackson DO 06/29/2017 Office visit Karyna Gilbert WASH OIL PUMP OPERATOR HELPER 06/18/2017 Office visit Karyna Gilbert WASH OIL PUMP OPERATOR HELPER 05/09/2017 Office visit Brannon Jackson DO 03/08/2017 Office visit Brannon Jackson DO 01/25/2017 Office visit Brannon Jackson DO 01/19/2017 Office visit Regina Mcnally WASH OIL PUMP OPERATOR HELPER 01/04/2017 Procedures Reagan Lehman DO 12/24/2016 Office visit Brannon Jackson DO 12/23/2016 Surgery Reagan Lehman DO 12/14/2016 Office visit Reagan Lehman DO 11/25/2016 Office visit Brannon Jackson DO 11/19/2016 Office visit Sandra Milton WASH OIL PUMP OPERATOR HELPER 11/02/2016 Office visit Lakia Reina WASH OIL PUMP OPERATOR HELPER 09/09/2016 Office visit Brannon Jackson DO 05/18/2016 Office visit rBannon Jackson DO 05/05/2016 Office visit 05/05/2016 Office [...] Manuel DO 07/03/2014 Office visit Rob Ruiz WASH OIL PUMP OPERATOR HELPER 06/11/2014 Office visit Cass BRAY 04/29/2014 Office visit Cass BRAY 04/29/2014 Office visit Brannon Manuel DO 04/05/2014 Office visit Harjinder Paiz PA-C 02/25/2014 Office visit Cass BRAY 01/02/2014 Office visit Cass BRAY 12/18/2013 Office visit Cass BRAY 09/13/2013 Office visit Brannon Jackson DO 08/27/2013 Office visit Regina Mcnally WASH OIL PUMP OPERATOR HELPER 08/17/2013 Office visit Ray Tripathi APRN 05/21/2013 Office visit Brannon Jackson DO 05/10/2013 Office visit Anirudh Conway MD 04/26/2013 Office visit Anirudh Conway MD 12/22/2012 Office visit Brannon Jackson DO 12/14/2012 [facility] Sandra Ca MD 12/12/2012 Office visit Brannon Jackson DO 12/12/2012 [facility] Sandra Ca MD 12/06/2012 Office visit Anirudh Conway MD 11/24/2012 Office visit Regina Mcnally WASH OIL PUMP OPERATOR HELPER 10/12/2012 [facility] Anirudh Conway MD 10/10/2012 Office visit Brannon Jackson DO 09/18/2012 Office visit Anirudh Conway MD 09/01/2012 Office visit Brannon Jackson DO 08/21/2012 Office visit Brannon Jackson DO 08/01/2012 Office visit Brannon Jackson DO 07/11/2012 Office visit Regina Mcnally WASH OIL PUMP OPERATOR HELPER 06/14/2012 Office visit Anirudh Conway MD [...] Jackson DO 08/18/2010 Office visit Regina Mcnally WASH OIL PUMP OPERATOR HELPER 02/03/2010 Office visit Brannon Jackson DO 12/02/2009 Office visit Brannon Manuel DO 06/27/2009 Office visit Brannon Jackson DO
--- OUTSIDE RECORDS SUMMARY | 2018-10-25 11:06 | XMS REPORT ---
Author Author Brannon Jackson [facility] Address [address] [place], [place] [address] Care Team Providers Care Docking Saw Operator Name Role Phone Brannon Jackson PCP [...] 3 mo supply for mail order through [employer] amitriptyline oral tablet 10 mg 08/29/2014 11/22/2015 [...] by oral route daily for 30 days [place] Thyroid oral tablet 120 mg 12/14/2012 12/09/2013 [...] BILI 0.90 mg/dLCALCIUM 9.50 mg/dLeGFR >60 mL/min/1.73 [id number] 18.0 U/L 01/02/2014 10:02 AM GLUCOSE 134.0 [...] in joint; Knee Feb 2014 3:20PM Lumbago b 2014 3:20PM Pain in joint; shoulder region, Right b 2014 3:20PM Osteoarthritis, Left Hip b 2014 3:20PM Fatigue b 2014 3:20PM Diabetes Mellitus, Type II Feb 2014 12:09PM Dysuria b 2014 12:09PM Gastroesophageal Reflux b 2014 8:20AM Diabetes Mellitus, Type II b 2014 8:20AM Hyperlipidemia, mixed b 2014 8:20AM Hypertension b 2014 8:20AM Overactive bladder b 2014 8:20AM Chronic pain syndrome Feb 05 2015 11:45AM Severe Left Anterior Hip pain, chronic, left Worsening Feb 25 2015 11:53AM Osteoarthritis, Left Hip Feb 25 2015 11:53AM Payers Insurance Name Company Name Plan Name Plan Number Policy Number Policy Group Number Start Date [employer] [place] [id number] Wednesday, 2009 [employer] [place] [id number] Saturday, 2009 History of Encounters Visit Date [...] Jackson DO 08/27/2013 Office visit Regina Mcnally HEATING ENGINEER 08/17/2013 Office visit Ray Tripathi HEATING ENGINEER 05/21/2013 Office visit Brannon Jackson DO 05/10/2013 Office visit Anirudh Conway MD 04/26/2013 Office visit Anirudh Conway MD 12/22/2012 Office visit Brannon Jackson DO 12/14/2012 [facility] Sandra Ca MD 12/12/2012 Office visit Brannon Jackson DO 12/12/2012 [facility] Sandra Ca MD 12/06/2012 Office visit Anirudh Conway MD 11/24/2012 Office visit Regina Mcnally HEATING ENGINEER 10/12/2012 [facility] Anirudh Conway MD 10/10/2012 Office visit Brannon Jackson DO 09/18/2012 Office visit Anirudh Conway MD 09/01/2012 Office visit Brannon Jackson DO 08/21/2012 Office visit Brannon Jackson DO 08/01/2012 Office visit Brannon Jackson DO 07/11/2012 Office visit Regina Mcnally HEATING ENGINEER 06/14/2012 Office visit Anirudh Conway MD [...] Brannon Jackson DO 12/18/2010 Office visit Brannon Jakcson DO 11/17/2010 Office visit Brannon Jackson DO 10/08/2010 Office visit Brannon Jacskon DO 08/18/2010 Office visit Regina Mcnally GRACE 02/03/2010 Office visit Brannon Jackson DO 12/02/2009 Office visit Brannon Jackson DO 06/27/2009 Office visit Brannon Jackson DO
--- OUTSIDE RECORDS SUMMARY | 2018-10-25 11:09 | XMS REPORT ---
Author Author Brannon Jackson [facility] Address [address] [place], [place] [address] Care Team Providers Care Department [employer] Name Role Phone Brannon Jackson PCP Brannon [...] 2 times per day for 7 days [place] Thyroid 120 mg oral tablet 12/14/2012 12/09/2013 [...] Reviewed 12/13/2011 12:00 AM Kenalog per 10Mg Im-[facility]#[address]-57(Man) Reviewed 12/23/2011 12:00 AM DRAIN/INJ JOINT/BURSA W/O US Reviewed 12/23/2011 12:00 AM Kenalog 40 Mg Im-[facility]#8181-8295-85 Reviewed 11/19/2016 12:00 AM X-RAY EXAM OF HAND Reviewed 01/19/2017 12:00 AM COMPLETE CBC W/AUTO DIFF WBC Reviewed 01/19/2017 12:00 AM COMPREHEN METABOLIC PANEL Reviewed 01/19/2017 12:00 AM GLYCOSYLATED HEMOGLOBIN TEST Reviewed 05/25/2012 12:00 AM INJ TRIGGER POINT 1/2 MUSCL Reviewed 05/25/2012 12:00 AM Kenalog, Per 10 Mg [facility]#0818-2328-65 Reviewed 06/14/2012 12:00 AM DRAIN/INJ JOINT/BURSA W/O US Reviewed 06/14/2012 12:00 AM Kenalog, Per 10 Mg [facility]#1604-7031-75 Reviewed 05/09/2017 12:00 AM MAMMOGRAPHY SCREENING, DIGITAL Reviewed 07/11/2012 12:00 AM THER/PROPH/DIAG INJ SC/IM Reviewed 07/11/2012 12:00 AM Decadron 1 mg [facility]#[id number] ([place]) Reviewed 07/11/2012 12:00 AM Depo-Medrol 80 mg [facility]#[id number]-Wzuqjygx Reviewed 08/21/2012 12:00 AM ASSAY CARBOXYHB QUANT Reviewed 09/01/2017 12:00 AM RADIOLOGIC EXAMINATION KNEE 1/2 VIEWS Reviewed 09/18/2012 12:00 AM DRAIN/INJ JOINT/BURSA W/O US Reviewed 09/18/2012 12:00 AM Kenalog, Per 10 Mg [facility]#0328-0948-56 Reviewed 10/25/2017 12:00 AM RADIOLOGIC EXAMINATION KNEE [...] 12:00 AM Kenalog, Per 10 Mg [facility]#1125-7097-65 Reviewed 12/22/2012 12:00 AM TOTAL CORTISOL Reviewed 04/26/2013 12:00 AM DRAIN/INJ JOINT/BURSA W/O US Reviewed 04/26/2013 12:00 AM Kenalog, Per 10 Mg [facility]#5836-0705-59 Reviewed 05/10/2013 12:00 AM DRAIN/INJ JOINT/BURSA W/O US Reviewed 05/10/2013 12:00 AM Kenalog, Per 10 Mg [facility]#8622-0846-53 Reviewed 05/10/2013 12:00 AM DRAIN/INJ JOINT/BURSA W/O US Reviewed 05/10/2013 12:00 AM Kenalog, Per 10 Mg [facility]#5322-3357-58 Reviewed 05/28/2013 12:00 AM MAMMOGRAM SCREENING Reviewed [...] 12:00 AM Kenalog, Per 10 Mg [facility]#7328-3141-61 Reviewed 04/05/2014 12:00 AM COMPLETE CBC W/AUTO [...] [facility] Gpa [id number] Saturday, 2015 [employer] [place] [id number] Saturday, 2009 [employer] [place] [id number] Wednesday, 2009 History of Encounters Visit Date Visit Type Provider 03/28/2018 Office visit Brannon Jackson DO 12/02/2017 Office visit Brannon Jackson DO 11/11/2017 Office visit Brannon Jackson DO 11/09/2017 Office visit Harjinder Paiz PA-C 10/28/2017 Office visit Lakia Reina GAME TRAPPER 10/25/2017 Office visit Regina Mcnally GAME TRAPPER 10/05/2017 Office visit Regina Mcnally GAME TRAPPER 09/01/2017 Office visit Brannon Manuel DO 06/29/2017 Office visit Karyna Gilbert GAME TRAPPER 06/18/2017 Office visit Karyna Gilbert GAME TRAPPER 05/09/2017 Office visit Brannon Manuel DO 03/08/2017 Office visit Brannon Manuel DO 01/25/2017 Office visit Brannon Manuel DO 01/19/2017 Office visit Regina Mcnally GAME TRAPPER 01/04/2017 Procedures Reagan Guzmanuman DO 12/24/2016 Office visit Brannon Manuel DO 12/23/2016 Surgery Reagan Bouman DO 12/14/2016 Office visit Reagan Thomasuman DO 11/25/2016 Office visit Brannon Manuel DO 11/19/2016 Office visit Sandra Yoan GAME TRAPPER 11/02/2016 Office visit Lakia Reina GAME TRAPPER 09/09/2016 Office visit Brannon Manuel DO 05/18/2016 [...] Manuel DO 12/12/2014 Office visit Cass Arellano SPRIGGER 10/29/2014 Office visit Cass Arellaon SPRIGGER 10/02/2014 Office visit Cass Arellano SPRIGGER 09/20/2014 Office visit Brannon Jackson DO 09/05/2014 Office visit Cass Arellano SPRIGGER 07/29/2014 Office visit Cass Arellano SPRIGGER 07/18/2014 Office visit Brannon Manuel DO 07/03/2014 Office visit Rob Ruiz GAME TRAPPER 06/11/2014 Office visit Cass Arellano SPRIGGER 04/29/2014 Office visit Cass Arellano SPRIGGER 04/29/2014 Office visit Brannon Jackson DO 04/05/2014 Office visit Harjinder Paiz PA-C 02/25/2014 Office visit Cass ARCINIEGAP 01/02/2014 Office visit Cass ARCINIEGAP 12/18/2013 Office visit Cass ARCINIEGAP 09/13/2013 Office visit Brannon Jackson DO 08/27/2013 Office visit Regina Mcnally GAME TRAPPER 08/17/2013 Office visit Ray Tripathi GAME TRAPPER 05/21/2013 Office visit Brannon Jackson DO 05/10/2013 Office visit Anirudh Conway MD 04/26/2013 Office visit Anirudh Conway MD 12/22/2012 Office visit Brannon Jackson DO 12/14/2012 [facility] Sandra Ca MD 12/12/2012 Office visit Brannon Jackson DO 12/12/2012 [facility] Sandra Ca MD 12/06/2012 Office visit Anirudh Conway MD 11/24/2012 Office visit Regina Mcnally GAME TRAPPER 10/12/2012 [facility] Anirudh Conway MD 10/10/2012 Office visit Brannon Jackson DO 09/18/2012 Office visit Anirudh Conway MD 09/01/2012 Office visit Brannon Jackson DO 08/21/2012 Office visit Brannon Jackson DO 08/01/2012 Office visit Brannon Jackson DO 07/11/2012 Office visit Regina Mcnally GAME TRAPPER 06/14/2012 Office visit Anirudh Conway MD 05/25/2012 [...] Jackson DO 08/18/2010 Office visit Regina Mcnally GAME TRAPPER 02/03/2010 Office visit Brannon Jackson DO 12/02/2009 Office visit Brannon Jackson DO 06/27/2009 Office visit Brannon Jackson DO
--- OUTSIDE RECORDS SUMMARY | 2018-10-25 11:11 | XMS REPORT ---
Author Author Brannon Jackson [facility] Address [address] [place], [place] [id number] Care Team Providers Care Cad Specialist Name Role Phone Brannon Jackson PCP Unavailable [...] 2 times per day for 7 days [place] Thyroid 120 mg oral tablet 12/14/2012 12/09/2013 [...] per 10Mg Im-[facility]#[address]-66(Man) Reviewed 12/23/2011 12:00 AM DRAIN/INJ JOINT/BURSA W/O US Reviewed 12/23/2011 12:00 AM Kenalog 40 Mg Im-[facility]#6217-5907-09 Reviewed 05/25/2012 12:00 AM INJ TRIGGER POINT 1/2 MUSCL Reviewed 05/25/2012 12:00 AM Kenalog, Per 10 Mg [facility]#5393-9160-05 Reviewed 06/14/2012 12:00 AM DRAIN/INJ JOINT/BURSA W/O US Reviewed 06/14/2012 12:00 AM Kenalog, Per 10 Mg [facility]#2693-9392-22 Reviewed 07/11/2012 12:00 AM THER/PROPH/DIAG INJ SC/IM Reviewed 07/11/2012 12:00 AM Decadron 1 mg [facility]#[id number] (Manuel) Reviewed 07/11/2012 12:00 AM Depo-Medrol 80 mg [facility]#[id number]-Fcpkxcon Reviewed 08/21/2012 12:00 AM ASSAY CARBOXYHB QUANT Reviewed 09/18/2012 12:00 AM DRAIN/INJ JOINT/BURSA W/O US Reviewed 09/18/2012 12:00 AM Kenalog, Per 10 Mg [facility]#8653-5046-52 Reviewed 10/13/2012 12:00 AM COMPREHEN METABOLIC PANEL Reviewed 10/13/2012 12:00 AM LIPID PANEL Reviewed 10/13/2012 12:00 AM GLYCOSYLATED HEMOGLOBIN TEST Reviewed 10/13/2012 12:00 AM MICROALBUMIN SEMIQUANT Reviewed 04/15/2010 12:00 AM MAMMOGRAM SCREENING Reviewed 12/06/2012 12:00 AM DRAIN/INJ JOINT/BURSA W/O US Reviewed 12/06/2012 12:00 AM Kenalog, Per 10 Mg [facility]#6946-7003-12 Reviewed 12/22/2012 12:00 AM TOTAL CORTISOL Reviewed 04/26/2013 12:00 AM DRAIN/INJ JOINT/BURSA W/O US Reviewed 04/26/2013 12:00 AM Kenalog, Per 10 Mg [facility]#7641-5804-36 Reviewed 05/10/2013 12:00 AM DRAIN/INJ JOINT/BURSA W/O US Reviewed 05/10/2013 12:00 AM Kenalog, Per 10 Mg [facility]#8040-4022-62 Reviewed 05/10/2013 12:00 AM DRAIN/INJ JOINT/BURSA W/O US Reviewed 05/10/2013 12:00 AM Kenalog, Per 10 Mg [facility]#2454-4192-00 Reviewed 05/28/2013 12:00 AM MAMMOGRAM SCREENING Reviewed [...] Kenalog, Per 10 Mg [facility]#5393-0031-52 Reviewed 04/05/2014 12:00 AM COMPLETE CBC W/AUTO [...] BILI 0.90 mg/dLCALCIUM 9.50 mg/dLeGFR >60 mL/min/1.73 [id number] 18.0 U/L 01/02/2014 10:02 AM GLUCOSE 134.0 [...] Policy Number Policy Group Number Start Date [facility] Gpa [id number] Saturday, 2015 [id number] Saturday, 2009 [facility] [id number] Wednesday, 2009 History of Encounters Visit Date [...] Conway MD 11/24/2012 Office visit Regina Mcnally INSURANCE CLAIMS REPRESENTATIVE 10/12/2012 [facility] Anirudh Conway MD 10/10/2012 Office visit Brannon Simpsonte DO 09/18/2012 Office visit Anirudh Conway MD 09/01/2012 Office visit Brannon Manuel DO 08/21/2012 Office visit Brannon Manuel DO 08/01/2012 Office visit Brannon Manuel DO 07/11/2012 Office visit Regina Mcnally INSURANCE CLAIMS REPRESENTATIVE 06/14/2012 Office visit Anirudh Conway MD 05/25/2012 Office visit Anirudh Conway MD 05/04/2012 Office visit Brannon Simpsonte DO 12/23/2011 Office visit Anirudh Conway MD 12/16/2011 Office visit Brannon Jackson DO 12/06/2011 Office visit Anirudh Conway MD 11/11/2011 Office visit Brannon Manuel DO 10/28/2011 Office visit Brannon Manuel DO 10/22/2011 [facility] Valery Cerna MD 10/21/2011 [facility] Valery Cerna MD 10/19/2011 Office visit Brannon Manuel DO 10/19/2011 [facility] Anderson [...]
--- OUTSIDE RECORDS SUMMARY | 2018-10-25 11:14 | XMS REPORT ---
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 Name Role Phone Reagan Lehman PCP Unavailable [...] 2 times per day for 7 days [place] Thyroid 120 mg oral tablet 12/14/2012 12/09/2013 [...] Reviewed 12/13/2011 12:00 AM Kenalog per 10Mg Im-[facility]#[address]-27(Man) Reviewed 12/23/2011 12:00 AM DRAIN/INJ JOINT/BURSA W/O US Reviewed 12/23/2011 12:00 AM Kenalog 40 Mg Im-[facility]#3682-8047-73 Reviewed 11/19/2016 12:00 AM X-RAY EXAM OF HAND Reviewed 05/25/2012 12:00 AM INJ TRIGGER POINT 1/2 MUSCL Reviewed 05/25/2012 12:00 AM Kenalog, Per 10 Mg [facility]#8823-5239-75 Reviewed 06/14/2012 12:00 AM DRAIN/INJ JOINT/BURSA W/O US Reviewed 06/14/2012 12:00 AM Kenalog, Per 10 Mg [facility]#5216-5555-29 Reviewed 07/11/2012 12:00 AM THER/PROPH/DIAG INJ SC/IM Reviewed 07/11/2012 12:00 AM Decadron 1 mg [facility]#[id number] (Manuel) Reviewed 07/11/2012 12:00 AM Depo-Medrol 80 mg [facility]#[id number]-Goysqsbb Reviewed 08/21/2012 12:00 AM ASSAY CARBOXYHB QUANT Reviewed 09/18/2012 12:00 AM DRAIN/INJ JOINT/BURSA W/O US Reviewed 09/18/2012 12:00 AM Kenalog, Per 10 Mg [facility]#6662-7558-63 Reviewed 10/13/2012 12:00 AM COMPREHEN METABOLIC PANEL Reviewed 10/13/2012 12:00 AM LIPID PANEL Reviewed 10/13/2012 12:00 AM GLYCOSYLATED HEMOGLOBIN TEST Reviewed 10/13/2012 12:00 AM MICROALBUMIN SEMIQUANT Reviewed 04/15/2010 12:00 AM MAMMOGRAM SCREENING Reviewed 12/06/2012 12:00 AM DRAIN/INJ JOINT/BURSA W/O US Reviewed 12/06/2012 12:00 AM Kenalog, Per 10 Mg [facility]#0749-0312-82 Reviewed 12/22/2012 12:00 AM TOTAL CORTISOL Reviewed 04/26/2013 12:00 AM DRAIN/INJ JOINT/BURSA W/O US Reviewed 04/26/2013 12:00 AM Kenalog, Per 10 Mg [facility]#6634-3651-18 Reviewed 05/10/2013 12:00 AM DRAIN/INJ JOINT/BURSA W/O US Reviewed 05/10/2013 12:00 AM Kenalog, Per 10 Mg [facility]#5875-2801-07 Reviewed 05/10/2013 12:00 AM DRAIN/INJ JOINT/BURSA W/O US Reviewed 05/10/2013 12:00 AM Kenalog, Per 10 Mg [facility]#5976-4813-09 Reviewed 05/28/2013 12:00 AM MAMMOGRAM SCREENING Reviewed [...] 03/05/2014 12:00 AM Kenalog, Per 10 Mg [facility]#4325-5790-62 Reviewed 04/05/2014 12:00 AM COMPLETE CBC W/AUTO [...] Policy Group Number Start Date Gpa Gpa [id number] Saturday, 2015 [facility] [id number] Saturday, 2009 [facility] [id number] Wednesday, 2009 History of Encounters Visit Date Visit Type Provider 12/14/2016 Office visit Reagan Lehman DO 11/25/2016 Office visit Brannon Jackson DO 11/19/2016 Office visit Sandra Milton WELDER PRODUCTION LINE ARC 11/02/2016 Office visit Lakia Reina WELDER PRODUCTION LINE ARC 09/09/2016 Office visit Brannon Manuel DO 05/18/2016 [...] Jackson DO 09/05/2014 Office visit Cass Arellano ENGINEERING LIBRARIAN 07/29/2014 Office visit Cassrosamaria Arellano ENGINEERING LIBRARIAN 07/18/2014 Office visit Brannon Manuel DO 07/03/2014 Office visit Rob Joseph WELDER PRODUCTION LINE ARC 06/11/2014 Office visit Cass Arellano ENGINEERING LIBRARIAN 04/29/2014 Office visit Cass Arellano ENGINEERING LIBRARIAN 04/29/2014 Office visit Brannon Manuel DO 04/05/2014 Office visit Harjinder Paiz PA-C 02/25/2014 Office visit Cass Arellano ENGINEERING LIBRARIAN 01/02/2014 Office visit Cass Arellano ENGINEERING LIBRARIAN 12/18/2013 Office visit Cassrosamaria Arellano ENGINEERING LIBRARIAN 09/13/2013 Office visit Brannon Jackson DO 08/27/2013 Office visit Regina Mcnally WELDER PRODUCTION LINE ARC 08/17/2013 Office visit Ray Tripathi WELDER PRODUCTION LINE ARC 05/21/2013 Office visit Brannon Jackson DO 05/10/2013 Office visit Anirudh Conway MD 04/26/2013 Office visit Anirudh Conway MD 12/22/2012 Office visit Brannon Jackson DO 12/14/2012 [facility] Sandra Ca MD 12/12/2012 Office visit Brannon Jackson DO 12/12/2012 [facility] Sandra Ca MD 12/06/2012 Office visit Anirudh Conway MD 11/24/2012 Office visit Regina Mcnally WELDER PRODUCTION LINE ARC 10/12/2012 [facility] Anirudh Conway MD 10/10/2012 Office visit Brannon Jackson DO 09/18/2012 Office visit Anirudh Conway MD 09/01/2012 Office visit Brannon Jackson DO 08/21/2012 Office visit Brannon Jackson DO 08/01/2012 Office visit Brannon Jackson DO 07/11/2012 Office visit Regina Mcnally WELDER PRODUCTION LINE ARC 06/14/2012 Office visit Anirudh Conway MD 05/25/2012 [...] Jackson DO 10/19/2011 [facility] Anderson aDwkins MD 10/07/2011 Office visit [...]
--- OUTSIDE RECORDS SUMMARY | 2018-10-25 11:17 | XMS REPORT ---
Author Author Brannon Jackson [facility] Address [address] [place], [place] [phone] Care Team Providers Care Automatic Pinsetter Mechanic Name Role Phone Brannon Jackson PCP Unavailable [...] 2 times per day for 7 days [place] Thyroid 120 mg oral tablet 12/14/2012 12/09/2013 [...] 12/13/2011 12:00 AM Kenalog per 10Mg Im-[facility]#[address]-15(Man) Reviewed 12/23/2011 12:00 AM DRAIN/INJ JOINT/BURSA W/O US Reviewed 12/23/2011 12:00 AM Kenalog 40 Mg Im-[facility]#5103-2938-90 Reviewed 05/25/2012 12:00 AM INJ TRIGGER POINT 1/2 MUSCL Reviewed 05/25/2012 12:00 AM Kenalog, Per 10 Mg [facility]#5158-9972-99 Reviewed 06/14/2012 12:00 AM DRAIN/INJ JOINT/BURSA W/O US Reviewed 06/14/2012 12:00 AM Kenalog, Per 10 Mg [facility]#2267-1733-22 Reviewed 07/11/2012 12:00 AM THER/PROPH/DIAG INJ SC/IM Reviewed 07/11/2012 12:00 AM Decadron 1 mg [facility]#[id number] (Manuel) Reviewed 07/11/2012 12:00 AM Depo-Medrol 80 mg [facility]#[id number]-Mpneqklt Reviewed 08/21/2012 12:00 AM ASSAY CARBOXYHB QUANT Reviewed 09/18/2012 12:00 AM DRAIN/INJ JOINT/BURSA W/O US Reviewed 09/18/2012 12:00 AM Kenalog, Per 10 Mg [facility]#4295-1625-71 Reviewed 10/13/2012 12:00 AM COMPREHEN METABOLIC PANEL Reviewed 10/13/2012 12:00 AM LIPID PANEL Reviewed 10/13/2012 12:00 AM GLYCOSYLATED HEMOGLOBIN TEST Reviewed 10/13/2012 12:00 AM MICROALBUMIN SEMIQUANT Reviewed 04/15/2010 12:00 AM MAMMOGRAM SCREENING Reviewed 12/06/2012 12:00 AM DRAIN/INJ JOINT/BURSA W/O US Reviewed 12/06/2012 12:00 AM Kenalog, Per 10 Mg [facility]#2697-5789-62 Reviewed 12/22/2012 12:00 AM TOTAL CORTISOL Reviewed 04/26/2013 12:00 AM DRAIN/INJ JOINT/BURSA W/O US Reviewed 04/26/2013 12:00 AM Kenalog, Per 10 Mg [facility]#6034-8158-20 Reviewed 05/10/2013 12:00 AM DRAIN/INJ JOINT/BURSA W/O US Reviewed 05/10/2013 12:00 AM Kenalog, Per 10 Mg [facility]#4930-3740-16 Reviewed 05/10/2013 12:00 AM DRAIN/INJ JOINT/BURSA W/O US Reviewed 05/10/2013 12:00 AM Kenalog, Per 10 Mg [facility]#9271-7405-41 Reviewed 05/28/2013 12:00 AM MAMMOGRAM SCREENING Reviewed [...] Per 10 Mg [facility]#8514-7622-63 Reviewed 04/05/2014 12:00 AM COMPLETE CBC W/AUTO [...] BILI 0.90 mg/dLCALCIUM 9.50 mg/dLeGFR >60 mL/min/1.73 [id number] 18.0 U/L 01/02/2014 10:02 AM GLUCOSE 134.0 [...] Group Number Start Date [facility] [id number] Wednesday, 2009 [facility] [id number] Saturday, 2009 History of Encounters Visit Date [...] Simpsonte DO 09/05/2014 Office visit Cassrosamaria Arellano CLINICAL MANAGER HOME CARE 07/29/2014 Office visit Cass DevinMonse Adan CLINICAL MANAGER HOME CARE 07/18/2014 Office visit Brannon Manuel DO 07/03/2014 Office visit Rob Ruiz INTERNAL RECRUITER 06/11/2014 Office visit Cass Arellano CLINICAL MANAGER HOME CARE 04/29/2014 Office visit Cass Arellano CLINICAL MANAGER HOME CARE 04/29/2014 Office visit Brannon Manuel DO 04/05/2014 Office visit Harjinder Paiz PA-C 02/25/2014 Office visit Csas Arellano CLINICAL MANAGER HOME CARE 01/02/2014 Office visit Cass Arellano CLINICAL MANAGER HOME CARE 12/18/2013 Office visit Cass Arellano CLINICAL MANAGER HOME CARE 09/13/2013 Office visit Brannon Jackson DO 08/27/2013 Office visit Regina Mcnally INTERNAL RECRUITER 08/17/2013 Office visit Ray Tripathi INTERNAL RECRUITER 05/21/2013 Office visit Brannon Jackson DO 05/10/2013 Office visit Anirudh Conway MD 04/26/2013 Office visit Anirudh Conway MD 12/22/2012 Office visit Brannon Jackson DO 12/14/2012 [facility] Sandra Ca MD 12/12/2012 Office visit Brannon Jackson DO 12/12/2012 [facility] Sandra Ca MD 12/06/2012 Office visit Anirudh Conway MD 11/24/2012 Office visit Regina Mcnally INTERNAL RECRUITER 10/12/2012 [facility] Anirudh Conway MD 10/10/2012 Office visit Brannon Jackson DO 09/18/2012 Office visit Anirudh Conway MD 09/01/2012 Office visit Brannon Jackson DO 08/21/2012 Office visit Brannon Jackson DO 08/01/2012 Office visit Brannon Jackson DO 07/11/2012 Office visit Regina Mcnally INTERNAL RECRUITER 06/14/2012 Office visit Anirudh Conway MD 05/25/2012 Office visit Anirudh Conway MD 05/04/2012 Office visit Brannon Jackson DO 12/23/2011 Office visit Anirudh Conway MD 12/16/2011 Office visit Brannon Jackson DO 12/06/2011 Office visit Anirudh Conway MD 11/11/2011 Office visit Brannon Jackson DO 10/28/2011 Office visit Brannon Jackson DO 10/22/2011 [facility] Valery Cerna MD 10/21/2011 [facility] Valery Cerna MD 10/19/2011 Office visit Brannon Jackson DO 10/19/2011 [facility] Anderson Dawkins MD 10/07/2011 Office visit [...]
--- OUTSIDE RECORDS SUMMARY | 2018-10-25 11:19 | XMS REPORT ---
Author Author Brannon Jackson [facility] Address [address] [place], [place] [address] Care Team Providers Care Sr. Manager Corporate Communications Name Role Phone Brannon Jackson PCP Unavailable [...] [place] amitriptyline 10 mg oral tablet 11/03/2015 02/01/2016 take 1 tablet by oral route once a day (at bedtime) for 90 days cyclobenzaprine 10 mg oral tablet 11/14/2015 03/13/2016 take 1 tablet by oral route every 8 hours as needed for 30 days muscle spasm omeprazole 40 mg oral capsule,delayed release(DR/EC) 11/24/2015 [...] 2 times per day for 7 days [place] Thyroid 120 mg oral tablet 12/14/2012 12/09/2013 [...] 12/13/2011 12:00 AM Kenalog per 10Mg [facility]#[address]-09(Man) Reviewed 12/23/2011 12:00 AM DRAIN/INJ JOINT/BURSA W/O US Reviewed 12/23/2011 12:00 AM Kenalog 40 Mg Im-[facility]#3116-9871-19 Reviewed 05/25/2012 12:00 AM INJ TRIGGER POINT 1/2 MUSCL Reviewed 05/25/2012 12:00 AM Kenalog, Per 10 Mg [facility]#2265-7640-88 Reviewed 06/14/2012 12:00 AM DRAIN/INJ JOINT/BURSA W/O US Reviewed 06/14/2012 12:00 AM Kenalog, Per 10 Mg [facility]#6979-6691-11 Reviewed 07/11/2012 12:00 AM THER/PROPH/DIAG INJ SC/IM Reviewed 07/11/2012 12:00 AM Decadron 1 mg [facility]#[id number] (Manuel) Reviewed 07/11/2012 12:00 AM Depo-Medrol 80 mg [facility]#[id number]-Jabbvbnf Reviewed 08/21/2012 12:00 AM ASSAY CARBOXYHB QUANT Reviewed 09/18/2012 12:00 AM DRAIN/INJ JOINT/BURSA W/O US Reviewed 09/18/2012 12:00 AM Kenalog, Per 10 Mg [facility]#2098-5589-56 Reviewed 10/13/2012 12:00 AM COMPREHEN METABOLIC PANEL Reviewed 10/13/2012 12:00 AM LIPID PANEL Reviewed 10/13/2012 12:00 AM GLYCOSYLATED HEMOGLOBIN TEST Reviewed 10/13/2012 12:00 AM MICROALBUMIN SEMIQUANT Reviewed 04/15/2010 12:00 AM MAMMOGRAM SCREENING Reviewed 12/06/2012 12:00 AM DRAIN/INJ JOINT/BURSA W/O US Reviewed 12/06/2012 12:00 AM Kenalog, Per 10 Mg [facility]#3798-7075-43 Reviewed 12/22/2012 12:00 AM TOTAL CORTISOL Reviewed 04/26/2013 12:00 AM DRAIN/INJ JOINT/BURSA W/O US Reviewed 04/26/2013 12:00 AM Kenalog, Per 10 Mg [facility]#3986-1753-35 Reviewed 05/10/2013 12:00 AM DRAIN/INJ JOINT/BURSA W/O US Reviewed 05/10/2013 12:00 AM Kenalog, Per 10 Mg [facility]#5618-9403-30 Reviewed 05/10/2013 12:00 AM DRAIN/INJ JOINT/BURSA W/O US Reviewed 05/10/2013 12:00 AM Kenalog, Per 10 Mg [facility]#1449-0519-92 Reviewed 05/28/2013 12:00 AM MAMMOGRAM SCREENING Reviewed [...] 12:00 AM Kenalog, Per 10 Mg [facility]#0084-9940-62 Reviewed 04/05/2014 12:00 AM COMPLETE CBC W/AUTO [...] BILI 0.90 mg/dLCALCIUM 9.50 mg/dLeGFR >60 mL/min/1.73 [id number] 18.0 U/L 01/02/2014 10:02 AM GLUCOSE 134.0 [...] Number Policy Group Number [facility] Date [id number] Wednesday, 2009 [facility] [id number] Saturday, 2009 History of Encounters Visit Date [...] BRAY 02/05/2015 Nurse visit Cass BRAY 12/17/2014 [facility] Dinesh Zhu MD 12/17/2014 Office visit Brannon Manuel DO 12/12/2014 Office visit Cass BRAY 10/29/2014 Office visit Cass ARCINIEGAP 10/02/2014 Office visit Cass ARCINIEGAP 09/20/2014 Office visit Brannon Manuel DO 09/05/2014 Office visit Cass ARCINIEGAP 07/29/2014 Office visit Cass ARCINIEGAP 07/18/2014 Office visit Brannon Jackson DO 07/03/2014 Office visit Rob Ruiz DIRECTOR INDUSTRIAL NURSING 06/11/2014 Office visit Cass Arellano MATH SPECIALIST 04/29/2014 Office visit Cass ARCINIEGAP 04/29/2014 Office visit Brannon Jackson DO 04/05/2014 Office visit Harjinder Paiz PA-C 02/25/2014 Office visit Cass ARCINIEGAP 01/02/2014 Office visit Cass ARCINIEGAP 12/18/2013 Office visit Cass BRAY 09/13/2013 Office visit Brannon Jackson DO 08/27/2013 Office visit Regina Mcnally DIRECTOR INDUSTRIAL NURSING 08/17/2013 Office visit Ray Tripathi DIRECTOR INDUSTRIAL NURSING 05/21/2013 Office visit Brannon Jackson DO 05/10/2013 Office visit Anirudh Conway MD 04/26/2013 Office visit Anirudh Conway MD 12/22/2012 Office visit Brannon Jackson DO 12/14/2012 [facility] Sandra Ca MD 12/12/2012 Office visit Brannon Jackson DO 12/12/2012 [facility] Sandra Ca MD 12/06/2012 Office visit Anirudh Conway MD 11/24/2012 Office visit Regina Mcnally DIRECTOR INDUSTRIAL NURSING 10/12/2012 [facility] Anirudh Conway MD 10/10/2012 Office visit Brannon Jackson DO 09/18/2012 Office visit Anirudh Conway MD 09/01/2012 Office visit Brannon Jackson DO 08/21/2012 Office visit Brannon Jackson DO 08/01/2012 Office visit Brannon Jackson DO 07/11/2012 Office visit Regina Mcnally DIRECTOR INDUSTRIAL NURSING 06/14/2012 Office visit Anirudh Conway MD 05/25/2012 Office visit Anirudh Conway MD 05/04/2012 Office visit Brannon Jackson DO 12/23/2011 Office visit Anirudh Conway MD 12/16/2011 Office visit Brannon Jackson DO 12/06/2011 Office visit Anirudh Conway MD 11/11/2011 Office visit Brannon Jackson DO 10/28/2011 Office visit Brannon Jackson DO 10/22/2011 [facility] Valery Cerna MD 10/21/2011 [facility] Valery Cerna MD 10/19/2011 Office visit Brannon Jackson DO 10/19/2011 [facility] Anderson Dawkins [...]
--- OUTSIDE RECORDS SUMMARY | 2018-10-25 11:22 | XMS REPORT ---
Author Author Brannon Jackson [facility] Address [address] [place], [place] [address] Care Team Providers Care Tour Sales Representative Name Role Phone Brannon Jackson PCP Brannon [...] 2 times per day for 7 days [place] Thyroid 120 mg oral tablet 12/14/2012 12/09/2013 [...] cholesterol med and hydroxine while on antibiotic) hydrocodone-acetaminophen 10-325 mg oral tablet 12/12/2017 01/11/2018 [...] Kenalog per 10Mg Im-[facility]#[address]-14(Man) Reviewed 12/23/2011 12:00 AM DRAIN/INJ JOINT/BURSA W/O US Reviewed 12/23/2011 12:00 AM Kenalog 40 Mg Im-[facility]#3602-3809-94 Reviewed 11/19/2016 12:00 AM X-RAY EXAM OF HAND Reviewed 01/19/2017 12:00 AM COMPLETE CBC W/AUTO DIFF WBC Reviewed 01/19/2017 12:00 AM COMPREHEN METABOLIC PANEL Reviewed 01/19/2017 12:00 AM GLYCOSYLATED HEMOGLOBIN TEST Reviewed 05/25/2012 12:00 AM INJ TRIGGER POINT 1/2 MUSCL Reviewed 05/25/2012 12:00 AM Kenalog, Per 10 Mg [facility]#4111-6816-46 Reviewed 06/14/2012 12:00 AM DRAIN/INJ JOINT/BURSA W/O US Reviewed 06/14/2012 12:00 AM Kenalog, Per 10 Mg [facility]#0019-4570-62 Reviewed 05/09/2017 12:00 AM MAMMOGRAPHY SCREENING, DIGITAL Reviewed 07/11/2012 12:00 AM THER/PROPH/DIAG INJ SC/IM Reviewed 07/11/2012 12:00 AM Decadron 1 mg [facility]#[id number] (Manuel) Reviewed 07/11/2012 12:00 AM Depo-Medrol 80 mg [facility]#[id number]-Ewyysnnw Reviewed 08/21/2012 12:00 AM ASSAY CARBOXYHB QUANT Reviewed 09/01/2017 12:00 AM RADIOLOGIC EXAMINATION KNEE 1/2 VIEWS Reviewed 09/18/2012 12:00 AM DRAIN/INJ JOINT/BURSA W/O US Reviewed 09/18/2012 12:00 AM Kenalog, Per 10 Mg [facility]#2887-6731-25 Reviewed 10/25/2017 12:00 AM RADIOLOGIC EXAMINATION KNEE [...] 12/06/2012 12:00 AM Kenalog, Per 10 Mg [facility]#5406-9572-73 Reviewed 12/22/2012 12:00 AM TOTAL CORTISOL Reviewed 04/26/2013 12:00 AM DRAIN/INJ JOINT/BURSA W/O US Reviewed 04/26/2013 12:00 AM Kenalog, Per 10 Mg [facility]#3351-5240-79 Reviewed 05/10/2013 12:00 AM DRAIN/INJ JOINT/BURSA W/O US Reviewed 05/10/2013 12:00 AM Kenalog, Per 10 Mg [facility]#4603-5939-72 Reviewed 05/10/2013 12:00 AM DRAIN/INJ JOINT/BURSA W/O US Reviewed 05/10/2013 12:00 AM Kenalog, Per 10 Mg [facility]#0539-1771-05 Reviewed 05/28/2013 12:00 AM MAMMOGRAM SCREENING Reviewed [...] 03/05/2014 12:00 AM Kenalog, Per 10 Mg [facility]#4421-1200-34 Reviewed 04/05/2014 12:00 AM COMPLETE CBC W/AUTO [...] Policy Group Number Start Date [facility] Gpa [id number] Saturday, [address] [facility] [id number] Saturday, 2009 [facility] [id number] Wednesday, 2009 History of Encounters Visit Date Visit Type Provider 12/02/2017 Office visit Brannon Jackson DO 11/11/2017 Office visit Brannon Manuel DO 11/09/2017 Office visit Harjinder Paiz PA-C 10/28/2017 Office visit Lakia Reina MATERIALS BUYER 10/25/2017 Office visit Regina Mcnally MATERIALS BUYER 10/05/2017 Office visit Regina Mcnally MATERIALS BUYER 09/01/2017 Office visit Brannon Manuel DO 06/29/2017 Office visit Karyna Gilbert MATERIALS BUYER 06/18/2017 Office visit Karyna Gilbert MATERIALS BUYER 05/09/2017 Office visit Brannon Manuel DO 03/08/2017 Office visit Brannon Manuel DO 01/25/2017 Office visit Brannon Manuel DO 01/19/2017 Office visit Regina Mcnally MATERIALS BUYER 01/04/2017 Procedures Reagan Lehman DO 12/24/2016 Office visit Brannon Jackson DO 12/23/2016 Surgery Reagan Lehman DO 12/14/2016 Office visit Reagan Lehman DO 11/25/2016 Office visit Brannon Manuel DO 11/19/2016 Office visit Sandra Yoan MATERIALS BUYER 11/02/2016 Office visit Lakia Reina MATERIALS BUYER 09/09/2016 Office visit Brannon Manuel DO 05/18/2016 [...] 12/22/2012 Office visit Brannon Jackson DO 12/14/2012 [facility] Sandra Ca MD 12/12/2012 Office visit Brnanon Jackson DO 12/12/2012 [facility] Sandra Ca MD 12/06/2012 Office visit Anirudh Conway MD 11/24/2012 Office visit Regina Mcnally APRN 10/12/2012 [facility] Anirudh Conway MD 10/10/2012 Office [...] 10/28/2011 Office visit Brannon Jackson DO 10/22/2011 [facility] Valery Cerna MD 10/21/2011 [facility] Valery Cerna MD 10/19/2011 Office visit Brannon Jackson DO 10/19/2011 [facility] Anderson Dawkins MD 10/07/2011 Office [...]
--- OUTSIDE RECORDS SUMMARY | 2018-10-25 11:24 | XMS REPORT ---
Author Author Brannon Jackson [facility] Address [address] [place] [id number] Care Team Providers Care Parking Enforcement Specialist Name Role Phone Brannon Jackson PCP [...] 2 times per day for 7 days [place] Thyroid 120 mg oral tablet 12/14/2012 12/09/2013 [...] 12/13/2011 12:00 AM Kenalog per 10Mg Im-[facility]#[address]-14(Man) Reviewed 12/23/2011 12:00 AM DRAIN/INJ JOINT/BURSA W/O US Reviewed 12/23/2011 12:00 AM Kenalog 40 Mg Im-[facility]#2612-4653-56 Reviewed 05/25/2012 12:00 AM INJ TRIGGER POINT 1/2 MUSCL Reviewed 05/25/2012 12:00 AM Kenalog, Per 10 Mg N[facility]#7466-3864-49 Reviewed 06/14/2012 12:00 AM DRAIN/INJ JOINT/BURSA W/O US Reviewed 06/14/2012 12:00 AM Kenalog, Per 10 Mg [facility]#4557-4537-46 Reviewed 07/11/2012 12:00 AM THER/PROPH/DIAG INJ SC/IM Reviewed 07/11/2012 12:00 AM Decadron 1 mg [facility]#[id number] (Manuel) Reviewed 07/11/2012 12:00 AM Depo-Medrol 80 mg [facility]#[id number]-Jjvadjax Reviewed 08/21/2012 12:00 AM ASSAY CARBOXYHB QUANT Reviewed 09/18/2012 12:00 AM DRAIN/INJ JOINT/BURSA W/O US Reviewed 09/18/2012 12:00 AM Kenalog, Per 10 Mg [facility]#3906-2696-26 Reviewed 10/13/2012 12:00 AM COMPREHEN METABOLIC PANEL Reviewed 10/13/2012 12:00 AM LIPID PANEL Reviewed 10/13/2012 12:00 AM GLYCOSYLATED HEMOGLOBIN TEST Reviewed 10/13/2012 12:00 AM MICROALBUMIN SEMIQUANT Reviewed 04/15/2010 12:00 AM MAMMOGRAM SCREENING Reviewed 12/06/2012 12:00 AM DRAIN/INJ JOINT/BURSA W/O US Reviewed 12/06/2012 12:00 AM Kenalog, Per 10 Mg [facility]#7548-7128-59 Reviewed 12/22/2012 12:00 AM TOTAL CORTISOL Reviewed 04/26/2013 12:00 AM DRAIN/INJ JOINT/BURSA W/O US Reviewed 04/26/2013 12:00 AM Kenalog, Per 10 Mg [facility]#1392-4620-69 Reviewed 05/10/2013 12:00 AM DRAIN/INJ JOINT/BURSA W/O US Reviewed 05/10/2013 12:00 AM Kenalog, Per 10 Mg [facility]#1171-4130-68 Reviewed 05/10/2013 12:00 AM DRAIN/INJ JOINT/BURSA W/O US Reviewed 05/10/2013 12:00 AM Kenalog, Per 10 Mg [facility]#0546-0318-11 Reviewed 05/28/2013 12:00 AM MAMMOGRAM SCREENING Reviewed [...] 10 Mg [facility]#5015-3076-40 Reviewed 04/05/2014 12:00 AM COMPLETE CBC W/AUTO [...] BILI 0.90 mg/dLCALCIUM 9.50 mg/dLeGFR >60 mL/min/1.73 [id number] 18.0 U/L 01/02/2014 10:02 AM GLUCOSE 134.0 [...] Policy Group Number Start Date [employer] [facility] [id number] Wednesday, 2009 [employer] [facility] [id number] Saturday, 2009 History of Encounters Visit Date [...] Brannon Simpsonte DO 12/12/2014 Office visit Cass Arellano MAINTENANCE SHOP WELDER 10/29/2014 Office visit Cass Arellano MAINTENANCE SHOP WELDER 10/02/2014 Office visit Cass DevinMonse Adan MAINTENANCE SHOP WELDER 09/20/2014 Office visit Brannon Manuel DO 09/05/2014 Office visit Cass M. Adan MAINTENANCE SHOP WELDER 07/29/2014 Office visit Cass Tonya Adan MAINTENANCE SHOP WELDER 07/18/2014 Office visit Brannon Jackson DO 07/03/2014 Office visit Rob Ruiz PRESSER COTTON GINNING 06/11/2014 Office visit Cassrosamaria Arellano MAINTENANCE SHOP WELDER 04/29/2014 Office visit Cassrosamaria Arellano MAINTENANCE SHOP WELDER 04/29/2014 Office visit Brannon Manuel DO 04/05/2014 Office visit Harjinder Paiz PA-C 02/25/2014 Office visit Cass DevinMonse Adan MAINTENANCE SHOP WELDER 01/02/2014 Office visit Cass Arellano MAINTENANCE SHOP WELDER 12/18/2013 Office visit Cass Arellano MAINTENANCE SHOP WELDER 09/13/2013 Office visit Brannon Jackson DO 08/27/2013 Office visit Regina Mcnally PRESSER COTTON GINNING 08/17/2013 Office visit Ray Tripathi PRESSER COTTON GINNING 05/21/2013 Office visit Brannon Jackson DO 05/10/2013 Office visit Anirudh Conway MD 04/26/2013 Office visit Anirudh Conway MD 12/22/2012 Office visit Brannon Jackson DO 12/14/2012 [facility] Sandra Ca MD 12/12/2012 Office visit Brannon Jackson DO 12/12/2012 [facility] Sandra Ca MD 12/06/2012 Office visit Anirudh Conway MD 11/24/2012 Office visit Regina Mcnally PRESSER COTTON GINNING 10/12/2012 [facility] Anirudh Conway MD 10/10/2012 Office visit Brannon Jackson DO 09/18/2012 Office visit Anirudh Conway MD 09/01/2012 Office visit Brannon Jackson DO 08/21/2012 Office visit Brannon Jackson DO 08/01/2012 Office visit Brannon Jackson DO 07/11/2012 Office visit Regina Mcnally PRESSER COTTON GINNING 06/14/2012 Office visit Anirudh Conway MD 05/25/2012 [...]
--- OUTSIDE RECORDS SUMMARY | 2018-10-25 11:27 | XMS REPORT ---
Author Reagan Lopez [facility] Address [address] [place], [place] [id number] Care Team Providers Care Blasting Helper Name Role Phone Reagan Lehman PCP Unavailable [...] 2 times per day for 7 days [place] Thyroid 120 mg oral tablet 12/14/2012 12/09/2013 [...] 12/13/2011 12:00 AM Kenalog per 10Mg Im-[facility]#[address]-94(Man) Reviewed 12/23/2011 12:00 AM DRAIN/INJ JOINT/BURSA W/O US Reviewed 12/23/2011 12:00 AM Kenalog 40 Mg Im-[facility]#4320-2218-68 Reviewed 11/19/2016 12:00 AM X-RAY EXAM OF HAND Reviewed 05/25/2012 12:00 AM INJ TRIGGER POINT 1/2 MUSCL Reviewed 05/25/2012 12:00 AM Kenalog, Per 10 Mg [facility]#8396-0083-66 Reviewed 06/14/2012 12:00 AM DRAIN/INJ JOINT/BURSA W/O US Reviewed 06/14/2012 12:00 AM Kenalog, Per 10 Mg [facility]#8086-0081-28 Reviewed 07/11/2012 12:00 AM THER/PROPH/DIAG INJ SC/IM Reviewed 07/11/2012 12:00 AM Decadron 1 mg [facility]#[id number] (Manuel) Reviewed 07/11/2012 12:00 AM Depo-Medrol 80 mg [facility]#[id number]-Locjnkfx Reviewed 08/21/2012 12:00 AM ASSAY CARBOXYHB QUANT Reviewed 09/18/2012 12:00 AM DRAIN/INJ JOINT/BURSA W/O US Reviewed 09/18/2012 12:00 AM Kenalog, Per 10 Mg [facility]#4288-0851-79 Reviewed 10/13/2012 12:00 AM COMPREHEN METABOLIC PANEL Reviewed 10/13/2012 12:00 AM LIPID PANEL Reviewed 10/13/2012 12:00 AM GLYCOSYLATED HEMOGLOBIN TEST Reviewed 10/13/2012 12:00 AM MICROALBUMIN SEMIQUANT Reviewed 04/15/2010 12:00 AM MAMMOGRAM SCREENING Reviewed 12/06/2012 12:00 AM DRAIN/INJ JOINT/BURSA W/O US Reviewed 12/06/2012 12:00 AM Kenalog, Per 10 Mg [facility]#5851-3989-60 Reviewed 12/22/2012 12:00 AM TOTAL CORTISOL Reviewed 04/26/2013 12:00 AM DRAIN/INJ JOINT/BURSA W/O US Reviewed 04/26/2013 12:00 AM Kenalog, Per 10 Mg [facility]#9557-6701-41 Reviewed 05/10/2013 12:00 AM DRAIN/INJ JOINT/BURSA W/O US Reviewed 05/10/2013 12:00 AM Kenalog, Per 10 Mg [facility]#3130-8786-40 Reviewed 05/10/2013 12:00 AM DRAIN/INJ JOINT/BURSA W/O US Reviewed 05/10/2013 12:00 AM Kenalog, Per 10 Mg [facility]#7414-9726-69 Reviewed 05/28/2013 12:00 AM MAMMOGRAM SCREENING Reviewed [...] 03/05/2014 12:00 AM Kenalog, Per 10 Mg [facility]#3520-7978-95 Reviewed 04/05/2014 12:00 AM COMPLETE CBC W/AUTO [...] Policy Group Number Start Date Gpa Gpa [id number] Saturday, 2015 [facility] [id number] Saturday, 2009 [facility] [id number] Wednesday, 2009 History of Encounters Visit Date Visit Type Provider 12/14/2016 Office visit Reagan Lehman DO 11/25/2016 Office visit Brannon Jackson DO 11/19/2016 Office visit Sandra Milton GLOBAL IMPLEMENTATION MANAGER 11/02/2016 Office visit Lakia Reina GLOBAL IMPLEMENTATION MANAGER 09/09/2016 Office visit Brannon Manuel DO [...] Jackson DO 09/05/2014 Office visit Cass Arellano NURSE OB 07/29/2014 Office visit Cassrosamaria Arellano NURSE OB 07/18/2014 Office visit Brannon Manuel DO 07/03/2014 Office visit Rob Joseph GLOBAL IMPLEMENTATION MANAGER 06/11/2014 Office visit Cass Arellano NURSE OB 04/29/2014 Office visit Cass Arellano NURSE OB 04/29/2014 Office visit Brannon Manuel DO 04/05/2014 Office visit Harjinder Paiz PA-C 02/25/2014 Office visit Cass Arellano NURSE OB 01/02/2014 Office visit Cass Arellano NURSE OB 12/18/2013 Office visit Cassrosamaria Arellano NURSE OB 09/13/2013 Office visit Brannon Jackson DO 08/27/2013 Office visit Regina Mcnally GLOBAL IMPLEMENTATION MANAGER 08/17/2013 Office visit Ray Tripathi GLOBAL IMPLEMENTATION MANAGER 05/21/2013 Office visit Brannon Jackson DO 05/10/2013 Office visit Anirudh Conway MD 04/26/2013 Office visit Anirudh Conway MD 12/22/2012 Office visit Brannon Jackson DO 12/14/2012 [facility] Sandra Ca MD 12/12/2012 Office visit Brannon Jackson DO 12/12/2012 [facility] Sandra Ca MD 12/06/2012 Office visit Anirudh Conway MD 11/24/2012 Office visit Regina Mcnally GLOBAL IMPLEMENTATION MANAGER 10/12/2012 [facility] Anirudh Conway MD 10/10/2012 Office visit Brannon Jackson DO 09/18/2012 Office visit Anirudh Conway MD 09/01/2012 Office visit Brannon Jackson DO 08/21/2012 Office visit Brannon Jackson DO 08/01/2012 Office visit Brannon Jackson DO 07/11/2012 Office visit Regina Mcnally GLOBAL IMPLEMENTATION MANAGER 06/14/2012 Office visit Anirudh Conway MD [...]
[2018-10-25 11:29] VITALS: BP 110/56
--- OUTSIDE RECORDS SUMMARY | 2018-10-25 11:30 | XMS REPORT ---
Author Author Brannon Jackson [facility] Address [address] [place], [place] [address] Care Team Providers Care Room Cleaner Name Role Phone Brannon Jackson PCP Unavailable [...] hours for 30 days May fill 03/17/17 Name Start Date Expiration Date SIG Comments [...] 2 times per day for 7 days [place] Thyroid 120 mg oral tablet 12/14/2012 12/09/2013 [...] Reviewed 12/13/2011 12:00 AM Kenalog per 10Mg Im-[facility]#[address]-21(Man) Reviewed 12/23/2011 12:00 AM DRAIN/INJ JOINT/BURSA W/O US Reviewed 12/23/2011 12:00 AM Kenalog 40 Mg Im-[facility]#0326-8867-46 Reviewed 11/19/2016 12:00 AM X-RAY EXAM OF HAND Reviewed 01/19/2017 12:00 AM COMPLETE CBC W/AUTO DIFF WBC Reviewed 01/19/2017 12:00 AM COMPREHEN METABOLIC PANEL Reviewed 01/19/2017 12:00 AM GLYCOSYLATED HEMOGLOBIN TEST Reviewed 05/25/2012 12:00 AM INJ TRIGGER POINT 1/2 MUSCL Reviewed 05/25/2012 12:00 AM Kenalog, Per [address] [facility]#9659-0581-35 Reviewed 06/14/2012 12:00 AM DRAIN/INJ JOINT/BURSA W/O US Reviewed 06/14/2012 12:00 AM Kenalog, Per [address] [facility]#8636-7529-50 Reviewed 07/11/2012 12:00 AM THER/PROPH/DIAG INJ SC/IM Reviewed 07/11/2012 12:00 AM Decadron [address] [facility]#[id number] (Manuel) Reviewed 07/11/2012 12:00 AM Depo-Medrol [address] [facility]#[id number]-Yragotzz Reviewed 08/21/2012 12:00 AM ASSAY CARBOXYHB QUANT Reviewed 09/18/2012 12:00 AM DRAIN/INJ JOINT/BURSA W/O US Reviewed 09/18/2012 12:00 AM Kenalog, Per [address] [facility]#4981-1836-54 Reviewed 10/13/2012 12:00 AM COMPREHEN METABOLIC PANEL Reviewed 10/13/2012 12:00 AM LIPID PANEL Reviewed 10/13/2012 12:00 AM GLYCOSYLATED HEMOGLOBIN TEST Reviewed 10/13/2012 12:00 AM MICROALBUMIN SEMIQUANT Reviewed 04/15/2010 12:00 AM MAMMOGRAM SCREENING Reviewed 12/06/2012 12:00 AM DRAIN/INJ JOINT/BURSA W/O US Reviewed 12/06/2012 12:00 AM Kenalog, Per [address] [facility]#5659-8625-76 Reviewed 12/22/2012 12:00 AM TOTAL CORTISOL Reviewed 04/26/2013 12:00 AM DRAIN/INJ JOINT/BURSA W/O US Reviewed 04/26/2013 12:00 AM Kenalog, Per [address] [facility]#5584-2610-99 Reviewed 05/10/2013 12:00 AM DRAIN/INJ JOINT/BURSA W/O US Reviewed 05/10/2013 12:00 AM Kenalog, Per [address] [facility]#5591-4030-99 Reviewed 05/10/2013 12:00 AM DRAIN/INJ JOINT/BURSA W/O US Reviewed 05/10/2013 12:00 AM Kenalog, Per [address] [facility]#8580-2908-10 Reviewed 05/28/2013 12:00 AM MAMMOGRAM SCREENING Reviewed [...] [address] [facility]#0340-2269-33 Reviewed 04/05/2014 12:00 AM COMPLETE CBC W/AUTO [...] [facility] Gpa [id number] Saturday, 2015 [employer] [place] [id number] Saturday, 2009 [employer] [facility] [id number] Wednesday, 2009 History of Encounters Visit Date Visit Type Provider 03/08/2017 Office visit Brannon Simpsonte DO 01/25/2017 Office visit Brannon Simpsonte DO 01/19/2017 Office visit Regina Mcnally MONITORING AND EVALUATION ADVISOR 01/04/2017 Procedures Reagan Lehman DO 12/24/2016 Office visit Brannon Simpsonte DO 12/23/2016 Surgery Reagan Lehman DO 12/14/2016 Office visit Reagan Lehman DO 11/25/2016 Office visit Brannon Tidwellhite DO 11/19/2016 Office visit Sandra Yoan MONITORING AND EVALUATION ADVISOR 11/02/2016 Office visit Lakia Reina MONITORING AND EVALUATION ADVISOR 09/09/2016 Office visit Brannon Tidwellhite DO 05/18/2016 [...] visit Cass BRAY 07/02/2015 Office visit Cass BRYA 06/04/2015 Office visit Cass BRAY 05/15/2015 Office [...] Simpsonte DO 09/05/2014 Office visit Cassrosamaria Arellano MANAGER INVESTIGATIONS 07/29/2014 Office visit Cass DevinMonse Adan MANAGER INVESTIGATIONS 07/18/2014 Office visit Brannon Manuel DO 07/03/2014 Office visit Rob Ruiz MONITORING AND EVALUATION ADVISOR 06/11/2014 Office visit Cass Arellano MANAGER INVESTIGATIONS 04/29/2014 Office visit Cass Arellano MANAGER INVESTIGATIONS 04/29/2014 Office visit Brannon Manuel DO 04/05/2014 Office visit Harjinder Paiz PA-C 02/25/2014 Office visit Cass Arellano MANAGER INVESTIGATIONS 01/02/2014 Office visit Cass Arellano MANAGER INVESTIGATIONS 12/18/2013 Office visit Cass Arellano MANAGER INVESTIGATIONS 09/13/2013 Office visit Brannon Jackson DO 08/27/2013 Office visit Regina Mcnally MONITORING AND EVALUATION ADVISOR 08/17/2013 Office visit Ray Tripathi MONITORING AND EVALUATION ADVISOR 05/21/2013 Office visit Brannon Jackson DO 05/10/2013 Office visit Anirudh Conway MD 04/26/2013 Office visit Anirudh Conway MD 12/22/2012 Office visit Brannon Jackson DO 12/14/2012 [facility] Sandra Ca MD 12/12/2012 Office visit Brannon Jackson DO 12/12/2012 [facility] Sandra Ca MD 12/06/2012 Office visit Anirudh Conway MD 11/24/2012 Office visit Regina Mcnally MONITORING AND EVALUATION ADVISOR 10/12/2012 [facility] Anirudh Conway MD 10/10/2012 Office visit Brannon Jackson DO 09/18/2012 Office visit Anirudh Conway MD 09/01/2012 Office visit Brannon Jackson DO 08/21/2012 Office visit Brannon Jackson DO 08/01/2012 Office visit Brannon Jackson DO 07/11/2012 Office visit Regina Mcnally MONITORING AND EVALUATION ADVISOR 06/14/2012 Office visit Anirudh Conway MD 05/25/2012 Office visit Anirudh Conway MD 05/04/2012 Office visit Brannon Jackson DO 12/23/2011 Office visit Anirudh Conway MD 12/16/2011 Office visit Brannon Jackson DO 12/06/2011 Office visit Anirudh Conway MD 11/11/2011 Office visit Brannon Jackson DO 10/28/2011 Office visit Brannon Jackson DO 10/22/2011 [facility] Valery Cerna MD 10/21/2011 [facility] Valery Cerna MD 10/19/2011 Office visit Brannon Jackson DO 10/19/2011 [facility] Anderson Dawkins MD 10/07/2011 Office visit [...]
--- OUTSIDE RECORDS SUMMARY | 2018-10-25 11:33 | XMS REPORT ---
Author Author Brannon Jackson [facility] Address [address] [place], [place] [id number] Care Team Providers Care Detonator Assembler Name Role Phone Brannon Jackson PCP Brannon [...] 2 times per day for 7 days [place] Thyroid 120 mg oral tablet 12/14/2012 12/09/2013 [...] [facility]#[address]-93(Man) Reviewed 12/23/2011 12:00 AM DRAIN/INJ JOINT/BURSA W/O US Reviewed 12/23/2011 12:00 AM Kenalog 40 Mg Im-[facility]#1580-3483-12 Reviewed 11/19/2016 12:00 AM X-RAY EXAM OF HAND Reviewed 01/19/2017 12:00 AM COMPLETE CBC W/AUTO DIFF WBC Reviewed 01/19/2017 12:00 AM COMPREHEN METABOLIC PANEL Reviewed 01/19/2017 12:00 AM GLYCOSYLATED HEMOGLOBIN TEST Reviewed 05/25/2012 12:00 AM INJ TRIGGER POINT 1/2 MUSCL Reviewed 05/25/2012 12:00 AM Kenalog, Per 10 Mg [facility]#8221-1561-25 Reviewed 06/14/2012 12:00 AM DRAIN/INJ JOINT/BURSA W/O US Reviewed 06/14/2012 12:00 AM Kenalog, Per 10 Mg [facility]#8065-3481-36 Reviewed 05/09/2017 12:00 AM MAMMOGRAPHY SCREENING, DIGITAL Reviewed 07/11/2012 12:00 AM THER/PROPH/DIAG INJ SC/IM Reviewed 07/11/2012 12:00 AM Decadron 1 mg [facility]#[id number] (Manuel) Reviewed 07/11/2012 12:00 AM Depo-Medrol 80 mg [facility]#[id number]-Bnkvqolj Reviewed 08/21/2012 12:00 AM ASSAY CARBOXYHB QUANT Reviewed 09/01/2017 12:00 AM RADIOLOGIC EXAMINATION KNEE 1/2 VIEWS Reviewed 09/18/2012 12:00 AM DRAIN/INJ JOINT/BURSA W/O US Reviewed 09/18/2012 12:00 AM Kenalog, Per 10 Mg [facility]#3510-0503-79 Reviewed 10/13/2012 12:00 AM COMPREHEN METABOLIC PANEL Reviewed 10/13/2012 12:00 AM LIPID PANEL Reviewed 10/13/2012 12:00 AM GLYCOSYLATED HEMOGLOBIN TEST Reviewed 10/13/2012 12:00 AM MICROALBUMIN SEMIQUANT Reviewed 04/15/2010 12:00 AM MAMMOGRAM SCREENING Reviewed 12/06/2012 12:00 AM DRAIN/INJ JOINT/BURSA W/O US Reviewed 12/06/2012 12:00 AM Kenalog, Per 10 Mg [facility]#4898-0447-60 Reviewed 12/22/2012 12:00 AM TOTAL CORTISOL Reviewed 04/26/2013 12:00 AM DRAIN/INJ JOINT/BURSA W/O US Reviewed 04/26/2013 12:00 AM Kenalog, Per 10 Mg [facility]#8135-6414-48 Reviewed 05/10/2013 12:00 AM DRAIN/INJ JOINT/BURSA W/O US Reviewed 05/10/2013 12:00 AM Kenalog, Per 10 Mg [facility]#7638-4239-53 Reviewed 05/10/2013 12:00 AM DRAIN/INJ JOINT/BURSA W/O US Reviewed 05/10/2013 12:00 AM Kenalog, Per 10 Mg [facility]#1418-3816-23 Reviewed 05/28/2013 12:00 AM MAMMOGRAM SCREENING Reviewed [...] 12:00 AM Kenalog, Per 10 Mg [facility]#6720-6127-10 Reviewed 04/05/2014 12:00 AM COMPLETE CBC W/AUTO [...] Policy Group Number Start Date Gpa Gpa [id number] Saturday, 2015 [employer] [place] [id number] Saturday, 2009 [employer] [place] [id number] Wednesday, 2009 History of Encounters Visit Date Visit Type Provider 09/01/2017 Office visit Brannon Jackson DO 06/29/2017 Office visit Karyna Gilbert LABORATORY TECHNOLOGY TEACHER 06/18/2017 Office visit Karyna Gilbert LABORATORY TECHNOLOGY TEACHER 05/09/2017 Office visit Brannon Jackson DO 03/08/2017 Office visit Brannon Jackson DO 01/25/2017 Office visit Brannon Jackson DO 01/19/2017 Office visit Regina Mcnally LABORATORY TECHNOLOGY TEACHER 01/04/2017 Procedures Reagan Lehman DO 12/24/2016 Office visit Brannon Jackson DO 12/23/2016 Surgery Reagan Lehman DO 12/14/2016 Office visit Reagan Lehman DO 11/25/2016 Office visit Brannon Jackson DO 11/19/2016 Office visit Sandra Milton LABORATORY TECHNOLOGY TEACHER 11/02/2016 Office visit Lakia Reina LABORATORY TECHNOLOGY TEACHER 09/09/2016 Office visit Brannon Jackson DO 05/18/2016 Office visit Brannon Jackson DO 05/05/2016 Office visit 05/05/2016 Office visit Brannon Jackson DO 02/05/2016 Office visit Brannon Jackson DO 12/09/2015 Voided Cass BRAY 10/13/2015 Office visit Brannon Jackson 09/18/2015 Nurse visit Cass BRAY 09/03/2015 Procedures Reagan Lehman DO 08/29/2015 Office visit Brannon Simpsonrodri BALTAZAR 08/20/2015 Office visit Cass BRAY 08/01/2015 Office visit Cass BRAY 07/02/2015 Office visit Cass BRAY 06/04/2015 Office visit Cass BRAY 05/15/2015 Office visit Brannon Simpsonrodri BALTAZAR 05/08/2015 Nurse visit Cass BRAY 04/28/2015 Office visit 04/28/2015 Office visit Brannon Tidwellburt BALTAZAR 04/09/2015 Office visit Cass BRAY 04/01/2015 Procedures Dinesh Zhu MD 04/01/2015 Office visit Brannon Simpsonrodri BALTAZAR 03/10/2015 Office visit Cass BRAY 02/25/2015 [...] Jackson DO 08/27/2013 Office visit Regina Mcnally LABORATORY TECHNOLOGY TEACHER 08/17/2013 Office visit Ray Tripathi LABORATORY TECHNOLOGY TEACHER 05/21/2013 Office visit Brannon Jackson DO 05/10/2013 Office visit Anirudh Conway MD 04/26/2013 Office visit Anirudh Conway MD 12/22/2012 Office visit Brannon Manuel DO 12/14/2012 [facility] Sandra Ca MD 12/12/2012 Office visit Brannon Manuel DO 12/12/2012 [facility] Sandra Ca MD 12/06/2012 Office visit Anirudh Conway MD 11/24/2012 Office visit Regina Mcnally LABORATORY TECHNOLOGY TEACHER 10/12/2012 [facility] Anirudh Conway MD 10/10/2012 Office visit Brannon Jackson DO 09/18/2012 Office visit Anirudh Conway MD 09/01/2012 Office visit Brannon Simpsonte DO 08/21/2012 Office visit Brannon Manuel DO 08/01/2012 Office visit Brannon Manuel DO 07/11/2012 Office visit Regina Mcnally LABORATORY TECHNOLOGY TEACHER 06/14/2012 Office visit Anirudh Conway MD 05/25/2012 Office visit Anirudh Conway MD 05/04/2012 Office visit Brannon Jackson DO 12/23/2011 Office visit Anirudh Conway MD 12/16/2011 Office visit Brannon Jackson DO 12/06/2011 Office visit Anirudh Conway MD 11/11/2011 Office visit Brannon Manuel DO 10/28/2011 Office visit Brannon Manuel DO 10/22/2011 [facility] Valery Cerna MD 10/21/2011 [facility] Valery Cerna MD 10/19/2011 Office visit Brannon Manuel DO 10/19/2011 [facility] Anderson Dawkins [...]
--- OUTSIDE RECORDS SUMMARY | 2018-10-25 11:36 | XMS REPORT ---
Author Author Brannon Jackson [facility] Address [address] [place], [place] [id number] Care Team Providers Care Drilling Machine Operator Name Role Phone Brannon Jackson [...] device 09/01/2015 use as directed single point mckeno aspirin 325 mg oral tablet take 1 [...] by topical route 3 times per day hydrocodone-acetaminophen 10-325 mg oral tablet 06/15/2017 07/15/2017 [...] 2 times per day for 7 days [place] Thyroid 120 mg oral tablet 12/14/2012 12/09/2013 [...] AM Kenalog per 10Mg [facility]#[address]-39(Man) Reviewed 12/23/2011 12:00 AM DRAIN/INJ JOINT/BURSA W/O US Reviewed 12/23/2011 12:00 AM Kenalog 40 Mg [facility]#2536-3676-90 Reviewed 11/19/2016 12:00 AM X-RAY EXAM OF HAND Reviewed 01/19/2017 12:00 AM COMPLETE CBC W/AUTO DIFF WBC Reviewed 01/19/2017 12:00 AM COMPREHEN METABOLIC PANEL Reviewed 01/19/2017 12:00 AM GLYCOSYLATED HEMOGLOBIN TEST Reviewed 05/25/2012 12:00 AM INJ TRIGGER POINT 1/2 MUSCL Reviewed 05/25/2012 12:00 AM Kenalog, Per [address] [facility]#3006-0781-98 Reviewed 06/14/2012 12:00 AM DRAIN/INJ JOINT/BURSA W/O US Reviewed 06/14/2012 12:00 AM Kenalog, Per [address] [facility]#5762-5746-93 Reviewed 05/09/2017 12:00 AM MAMMOGRAPHY SCREENING, DIGITAL Reviewed 07/11/2012 12:00 AM THER/PROPH/DIAG INJ SC/IM Reviewed 07/11/2012 12:00 AM Decadron [address] [facility]#[id number] (Manuel) Reviewed 07/11/2012 12:00 AM Depo-Medrol [address] [facility]#[id number]-Izkhnktn Reviewed 08/21/2012 12:00 AM ASSAY CARBOXYHB QUANT Reviewed 09/18/2012 12:00 AM DRAIN/INJ JOINT/BURSA W/O US Reviewed 09/18/2012 12:00 AM Kenalog, Per [address] [facility]#8489-4302-94 Reviewed 10/13/2012 12:00 AM COMPREHEN METABOLIC PANEL Reviewed 10/13/2012 12:00 AM LIPID PANEL Reviewed 10/13/2012 12:00 AM GLYCOSYLATED HEMOGLOBIN TEST Reviewed 10/13/2012 12:00 AM MICROALBUMIN SEMIQUANT Reviewed 04/15/2010 12:00 AM MAMMOGRAM SCREENING Reviewed 12/06/2012 12:00 AM DRAIN/INJ JOINT/BURSA W/O US Reviewed 12/06/2012 12:00 AM Kenalog, Per 10 Mg [facility]#0502-7088-92 Reviewed 12/22/2012 12:00 AM TOTAL CORTISOL Reviewed 04/26/2013 12:00 AM DRAIN/INJ JOINT/BURSA W/O US Reviewed 04/26/2013 12:00 AM Kenalog, Per 10 Mg [facility]#7810-7746-35 Reviewed 05/10/2013 12:00 AM DRAIN/INJ JOINT/BURSA W/O US Reviewed 05/10/2013 12:00 AM Kenalog, Per 10 Mg [facility]#2043-2869-17 Reviewed 05/10/2013 12:00 AM DRAIN/INJ JOINT/BURSA W/O US Reviewed 05/10/2013 12:00 AM Kenalog, Per 10 Mg ND#3106-6865-19 Reviewed 05/28/2013 12:00 AM MAMMOGRAM SCREENING Reviewed [...] 03/05/2014 12:00 AM Kenalog, Per 10 Mg ND#4333-4313-46 Reviewed 04/05/2014 12:00 AM COMPLETE CBC W/AUTO [...] joint; Bilateral Hip Feb 2011 4:20PM Bursitis Dec 06 2011 4:20PM Pain in joint; Knee Feb 2011 4:20PM Fibromyalgia Feb 2011 4:20PM Lumbago Feb 2011 4:20PM Cervicalgia Dec 06 2011 4:20PM Trochanteric Bursitis Feb 13 2011 [...] Policy Group Number Start Date Gpa Gpa [id number] Saturday, 2015 [employer] [place] [id number] Saturday, 2009 [employer] [place] [id number] Wednesday, 2009 History of Encounters Visit Date Visit Type Provider 05/09/2017 Office visit Brannon Jackson DO 03/08/2017 Office visit Brannon Jackson DO 01/25/2017 Office visit Brannon Jackson DO 01/19/2017 Office visit Regina Mcnally NURSE RECRUITER 01/04/2017 Procedures Reagan Lehman DO 12/24/2016 Office visit Brannon Jackson DO 12/23/2016 Surgery Reagan Lehman DO 12/14/2016 Office visit Reagan Lehman DO 11/25/2016 Office visit Brannon Jackson DO 11/19/2016 Office visit Sandra Milton NURSE RECRUITER 11/02/2016 Office visit Lakia Reina NURSE RECRUITER 09/09/2016 Office visit Brannon Jackson DO 05/18/2016 [...] Manuel DO 07/03/2014 Office visit Rob Ruiz NURSE RECRUITER 06/11/2014 Office visit Cass BRAY 04/29/2014 Office visit Cass BRAY 04/29/2014 Office visit Brannon Manuel DO 04/05/2014 Office visit Harjinder Piaz PA-C 02/25/2014 Office visit Cass BRAY 01/02/2014 Office visit Cass BRAY 12/18/2013 Office visit Cass BRAY 09/13/2013 Office visit Brannon Jackson DO 08/27/2013 Office visit Regina Mcnally NURSE RECRUITER 08/17/2013 Office visit Ray Tripathi APRN 05/21/2013 Office visit Brannon Jackson DO 05/10/2013 Office visit Anirudh Conway MD 04/26/2013 Office visit Anirudh Conway MD 12/22/2012 Office visit Brannon Jackson DO 12/14/2012 [facility] Sandra Ca MD 12/12/2012 Office visit Brannon Jackson DO 12/12/2012 [facility] Sandra Ca MD 12/06/2012 Office visit Anirudh Conway MD 11/24/2012 Office visit Regina Mcnally NURSE RECRUITER 10/12/2012 [facility] Anirudh Conway MD 10/10/2012 Office visit Brannon Jackson DO 09/18/2012 Office visit Anirudh Conway MD 09/01/2012 Office visit Brannon Jackson DO 08/21/2012 Office visit Brannon Jackson DO 08/01/2012 Office visit Brannon Jackson DO 07/11/2012 Office visit Regina Mcnally NURSE RECRUITER 06/14/2012 Office visit Aniruhd Conway MD 05/25/2012 Office visit Anirudh Conway [...] Jackson DO 08/18/2010 Office visit Regina Mcnally NURSE RECRUITER 02/03/2010 Office visit Brannon Jackson DO 12/02/2009 Office visit Brannon Jackson DO 06/27/2009 Office visit Brannon Jackson DO
--- OUTSIDE RECORDS SUMMARY | 2018-10-25 11:39 | XMS REPORT ---
Author Author Brannon Jackson [facility] Address [address] [place], [place] [address] Care Team Providers Care Software Applications Specialist Name Role Phone Brannon Jackson PCP Unavailable Allergies and Adverse Reactions Name Reaction Notes Promethazine vomiting Zofran vomiting Plan of Treatment Planned Activity Comments Planned Date Planned Time Plan/Goal MRI PELVIS W/O DYE 08/01/2015 12:00 AM MAMMOGRAM SCREENING 05/05/2016 12:00 AM C-REACTIVE PROTEIN 05/04/2012 12:00 AM [...] 90 days Prozac 20 mg oral capsule 04/16/2016 05/16/2016 take 1 capsule (20 mg) by oral route once daily for 30 days nystatin 100,000 unit/gram topical cream 05/05/2016 apply to the affected area(s) by topical route 2 times per day fluconazole 100 mg oral tablet 05/05/2016 take 1 tablet by oral route daily Name Start Date Expiration Date SIG [...] 2 times per day for 7 days [place] Thyroid 120 mg oral tablet 12/14/2012 12/09/2013 [...] 7 days hydrocodone-acetaminophen 10-325 mg oral tablet 03/30/2016 [...] HC BMI BSA BMI Percentile O2 Sat(%) 05/05/2016 8:47:00 AM 142 mmHg 88 mmHg [...] F 286 lbs 68 in 43.4857 kg/m 2.49 m2 12/06/2011 4:18:00 PM 142 mmHg 94 mmHg 74 bpm 16 rpm 97 F 290.5 lbs 68 in 44.17 kg/m2 2.5144 m 11/11/2011 3:41:00 PM 132 mmHg 78 mmHg 74 bpm 18 rpm 98.2 F 283 lbs 66 in 45.6769 kg/m 2.44 m2 10/28/2011 3:42:00 PM 144 mmHg 80 mmHg 86 bpm 22 rpm 98 F 286 lbs 68 in 43.49 kg/m2 2.4948 m 96 % 10/19/2011 3:43:00 PM 160 mmHg 98 mmHg 96 bpm 22 rpm 102 F 97 % 10/07/2011 3:37:00 PM 140 mmHg 72 mmHg 76 bpm 18 rpm 98 F 292 lbs 68 in 44.40 kg/m2 2.5208 m 04/27/2011 3:39:00 PM 140 mmHg 72 mmHg 74 bpm 18 rpm 96.9 F 295 lbs 68 in 44.8541 kg/m 2.53 m2 04/16/2011 10:20:00 AM 178 mmHg 80 mmHg 76 bpm 22 rpm 98.4 F 295 lbs 68 in 44.85 kg/m2 2.5338 m 12/18/2010 8:58:00 AM 142 mmHg 82 mmHg 68 bpm 20 rpm 97.4 F 285 lbs 11/17/2010 3:26:00 PM 154 mmHg 80 mmHg 82 bpm 18 rpm 98.1 F 288 lbs 68 in 43.79 kg/m2 2.5035 m 10/08/2010 3:30:00 PM 148 mmHg 82 mmHg 76 bpm 18 rpm 98 F 285 lbs 08/18/2010 8:28:00 AM 174 mmHg 100 mmHg 80 bpm 20 rpm 98.7 F 285 lbs 02/03/2010 3:32:00 PM 134 mmHg 76 mmHg 78 bpm 16 rpm 98 F 274 lbs 68 in 41.6611 kg/m 2.44 m2 12/02/2009 3:42:00 PM 150 mmHg [...] X-RAY 2VW FRONTAL&LATL Reviewed 05/05/2016 12:00 AM CHEST X-RAY 2VW FRONTAL&LATL Reviewed 05/05/2016 12:00 AM GLYCOSYLATED HEMOGLOBIN TEST Reviewed 05/05/2016 12:00 AM LIPID PANEL Reviewed 05/05/2016 12:00 AM COMPREHEN METABOLIC PANEL Returned 05/05/2016 12:00 AM VITAMIN B-12 Returned 05/05/2016 12:00 AM ALBUMIN URINE MICROALBUMIN QUANTIATIVE Reviewed 12/13/2011 12:00 AM DRAIN/INJ JOINT/BURSA W/O US Reviewed 12/13/2011 12:00 AM Kenalog per 10Mg Im-Nd#[address]-86(Man) Reviewed 12/23/2011 12:00 AM DRAIN/INJ JOINT/BURSA W/O US Reviewed 12/23/2011 12:00 AM Kenalog 40 Mg [facility]#9092-0559-82 Reviewed 05/25/2012 12:00 AM INJ TRIGGER POINT 1/2 MUSCL Reviewed 05/25/2012 12:00 AM Kenalog, Per 10 Mg [facility]#2284-5629-93 Reviewed 06/14/2012 12:00 AM DRAIN/INJ JOINT/BURSA W/O US Reviewed 06/14/2012 12:00 AM Kenalog, Per 10 Mg [facility]#4410-6958-10 Reviewed 07/11/2012 12:00 AM THER/PROPH/DIAG INJ SC/IM Reviewed 07/11/2012 12:00 AM Decadron 1 mg [facility]#[id number] (Manuel) Reviewed 07/11/2012 12:00 AM Depo-Medrol 80 mg [facility]#[id number]-Rsbbmmtw Reviewed 08/21/2012 12:00 AM ASSAY CARBOXYHB QUANT Reviewed 09/18/2012 12:00 AM DRAIN/INJ JOINT/BURSA W/O US Reviewed 09/18/2012 12:00 AM Kenalog, Per 10 Mg [facility]#1287-4515-32 Reviewed 10/13/2012 12:00 AM COMPREHEN METABOLIC PANEL Reviewed 10/13/2012 12:00 AM LIPID PANEL Reviewed 10/13/2012 12:00 AM GLYCOSYLATED HEMOGLOBIN TEST Reviewed 10/13/2012 12:00 AM MICROALBUMIN SEMIQUANT Reviewed 04/15/2010 12:00 AM MAMMOGRAM SCREENING Reviewed 12/06/2012 12:00 AM DRAIN/INJ JOINT/BURSA W/O US Reviewed 12/06/2012 12:00 AM Kenalog, Per 10 Mg [facility]#4417-0259-11 Reviewed 12/22/2012 12:00 AM TOTAL CORTISOL Reviewed 04/26/2013 12:00 AM DRAIN/INJ JOINT/BURSA W/O US Reviewed 04/26/2013 12:00 AM Kenalog, Per 10 Mg [facility]#1892-8488-34 Reviewed 05/10/2013 12:00 AM DRAIN/INJ JOINT/BURSA W/O US Reviewed 05/10/2013 12:00 AM Kenalog, Per 10 Mg [facility]#6012-1631-40 Reviewed 05/10/2013 12:00 AM DRAIN/INJ JOINT/BURSA W/O US Reviewed 05/10/2013 12:00 AM Kenalog, Per 10 Mg [facility]#1867-2852-74 Reviewed 05/28/2013 12:00 AM MAMMOGRAM SCREENING Reviewed [...] Kenalog, Per 10 Mg [facility]#0130-4843-85 Reviewed 04/05/2014 12:00 AM COMPLETE CBC W/AUTO [...] BILI 0.90 mg/dLCALCIUM 9.50 mg/dLeGFR >60 mL/min/1.73 [id number] 18.0 U/L 01/02/2014 10:02 AM GLUCOSE 134.0 [...] mg/dLLDL ( CALC) 113.0 mg/dLVITAMIN B12 442.0 pg/mL History Of Immunizations Not available. History [...] b 2014 3:20PM Diabetes Mellitus, Type II Dec [...] Exposure to dust May 05 2016 8:51AM Payers Insurance Name Company Name Plan Name Plan Number Policy Number Policy Group Number Start Date [facility] Gpa [id number] Saturday, 2015 [employer] [place] [id number] Saturday, 2009 [employer] [place] [id number] Wednesday, 2009 History of Encounters Visit Date Visit Type Provider 05/05/2016 Office visit 05/05/2016 Office visit Brannon [...] BRAY 02/05/2015 Nurse visit Cass BRAY 12/17/2014 [facility] Dinesh Zhu MD 12/17/2014 Office visit [...] Brannon Jackson DO 04/05/2014 Office visit Harjinder aPiz PA-C 02/25/2014 Office visit Cass BRAY 01/02/2014 [...] 11/24/2012 Office visit Regina Mcnally APRN 10/12/2012 [facility] Anirudh Conway MD 10/10/2012 Office visit Brannon Jackson DO 09/18/2012 Office visit Anirudh Conway MD 09/01/2012 Office visit Brannon Jackson DO 08/21/2012 Office visit Brannon Jackson DO 08/01/2012 Office visit Brannon Jackson DO 07/11/2012 Office visit Regina Mcnally EXTENSION WORK INSTRUCTOR 06/14/2012 Office visit Anirudh Conway MD 05/25/2012 Office visit Anirudh Conway MD 05/04/2012 Office visit Brannon Jackson DO 12/23/2011 Office visit Anirduh Conway MD 12/16/2011 Office visit Brannon Jackson DO 12/06/2011 Office visit Ainrudh Conway MD 11/11/2011 Office visit Brannon Jackson [...] Jackson DO 08/18/2010 Office visit Regina Mcnally EXTENSION WORK INSTRUCTOR 02/03/2010 Office visit Brannon Jackson DO 12/02/2009 Office visit Brannon Jackson DO 06/27/2009 Office visit Brannon Jackson DO
--- OUTSIDE RECORDS SUMMARY | 2018-10-25 11:48 | XMS REPORT ---
Author Author Brannon Jackson [facility] Address [address] [place], [place] [address] Care Team Providers Care Balloon Artist Name Role Phone Brannon Jackson PCP Unavailable [...] once daily at bedtime for 7 days Name Start Date Expiration [...] 2 times per day for 7 days [place] Thyroid 120 mg oral tablet 12/14/2012 12/09/2013 [...] Reviewed 12/13/2011 12:00 AM Kenalog per 10Mg [facility]#[address]-41(Man) Reviewed 12/23/2011 12:00 AM DRAIN/INJ JOINT/BURSA W/O US Reviewed 12/23/2011 12:00 AM Kenalog 40 Mg [facility]#7463-5492-69 Reviewed 11/19/2016 12:00 AM X-RAY EXAM OF HAND Reviewed 05/25/2012 12:00 AM INJ TRIGGER POINT 1/2 MUSCL Reviewed 05/25/2012 12:00 AM Kenalog, Per 10 Mg [facility]#1936-93[address]-36 Reviewed 06/14/2012 12:00 AM DRAIN/INJ JOINT/BURSA W/O US Reviewed 06/14/2012 12:00 AM Kenalog, Per 10 Mg [facility]#3570-0847-28 Reviewed 07/11/2012 12:00 AM THER/PROPH/DIAG INJ SC/IM Reviewed 07/11/2012 12:00 AM Decadron 1 mg [facility]#57400778900 (Manuel) Reviewed 07/11/2012 12:00 AM Depo-Medrol 80 mg [facility]#55643887074-Runhqnhs Reviewed 08/21/2012 12:00 AM ASSAY CARBOXYHB QUANT Reviewed 09/18/2012 12:00 AM DRAIN/INJ JOINT/BURSA W/O US Reviewed 09/18/2012 12:00 AM Kenalog, Per 10 Mg [facility]#7907-6494-81 Reviewed 10/13/2012 12:00 AM COMPREHEN METABOLIC PANEL Reviewed 10/13/2012 12:00 AM LIPID PANEL Reviewed 10/13/2012 12:00 AM GLYCOSYLATED HEMOGLOBIN TEST Reviewed 10/13/2012 12:00 AM MICROALBUMIN SEMIQUANT Reviewed 04/15/2010 12:00 AM MAMMOGRAM SCREENING Reviewed 12/06/2012 12:00 AM DRAIN/INJ JOINT/BURSA W/O US Reviewed 12/06/2012 12:00 AM Kenalog, Per 10 Mg [facility]#0030-1759-91 Reviewed 12/22/2012 12:00 AM TOTAL CORTISOL Reviewed 04/26/2013 12:00 AM DRAIN/INJ JOINT/BURSA W/O US Reviewed 04/26/2013 12:00 AM Kenalog, Per 10 Mg [facility]#6837-3959-10 Reviewed 05/10/2013 12:00 AM DRAIN/INJ JOINT/BURSA W/O US Reviewed 05/10/2013 12:00 AM Kenalog, Per 10 Mg [facility]#2446-0934-35 Reviewed 05/10/2013 12:00 AM DRAIN/INJ JOINT/BURSA W/O US Reviewed 05/10/2013 12:00 AM Kenalog, Per 10 Mg [facility]#5131-1578-93 Reviewed 05/28/2013 12:00 AM MAMMOGRAM SCREENING Reviewed [...] Per 10 Mg [facility]#1149-5194-51 Reviewed 04/05/2014 12:00 AM COMPLETE CBC W/AUTO [...] Policy Group Number Start Date Gpa Gpa [id number] Saturday, 2015 [employer] [place] [id number] Saturday, 2009 [employer] [place] [id number] Wednesday, 2009 History of Encounters Visit Date [...] Manuel DO 07/03/2014 Office visit Rob Ruiz DAM WORKER 06/11/2014 Office visit Cass BRAY 04/29/2014 Office visit Cass BRAY 04/29/2014 Office visit Brannon Manuel DO 04/05/2014 Office visit Harjinder Paiz PA-C 02/25/2014 Office visit Cass BRAY 01/02/2014 Office visit Cass BRAY 12/18/2013 Office visit Cass BRAY 09/13/2013 Office visit Brannon Jackson DO 08/27/2013 Office visit Regina Mcnally DAM WORKER 08/17/2013 Office visit Ray Tripathi APRN 05/21/2013 Office visit Brannon Jackson DO 05/10/2013 Office visit Anirudh Conway MD 04/26/2013 Office visit Anirudh Conway MD 12/22/2012 Office visit Brannon Jackson DO 12/14/2012 [facility] Sandra Ca MD 12/12/2012 Office visit Brannon Jackson DO 12/12/2012 [facility] Sandra Ca MD 12/06/2012 Office visit Anirudh Conway MD 11/24/2012 Office visit Regina Mcnally DAM WORKER 10/12/2012 [facility] Anirudh Conway MD 10/10/2012 Office visit Brannon Jackson DO 09/18/2012 Office visit Anirudh Conway MD 09/01/2012 Office visit Brannon Jackson DO 08/21/2012 Office visit Brannon Jackson DO 08/01/2012 Office visit Brannon Jackson DO 07/11/2012 Office visit Regina Mcnally DAM WORKER 06/14/2012 Office visit Anirudh Conway MD [...] Jackson DO 08/18/2010 Office visit Regina Mcnally DAM WORKER 02/03/2010 Office visit Brannon Jackson DO 12/02/2009 Office visit Brannon Jackson DO 06/27/2009 Office visit Brannon Simpsonte DO
[2018-10-25] MEDS ORDERED: OXYC-471 PO (11:58)
--- OUTSIDE RECORDS SUMMARY | 2018-10-25 11:58 | XMS REPORT ---
Author Author Cass Arellano [facility] Address [address] [place], [place] [address] Care Team Providers Care Kennel Assistant Name Role Phone Cass Arellano PCP Allergies [...] 3 mo supply for mail order through [facility] amitriptyline 10 mg oral tablet 08/29/2014 11/22/2015 [...] oral tablet 06/19/2015 TAKE 1 TABLET DAILY alprazolam 0.5 mg oral tablet 06/27/2015 07/27/2015 [...] glucose 2 times per day Dx: 250.00 Name Start Date Expiration Date SIG Comments [...] times per day for 7 days [place] Thyroid 120 mg oral tablet 12/14/2012 [...] per 10Mg [facility]#[address]-75(Man) Reviewed 12/23/2011 12:00 AM DRAIN/INJ JOINT/BURSA W/O US Reviewed 12/23/2011 12:00 AM Kenalog 40 Mg [facility]#9346-7458-73 Reviewed 05/25/2012 12:00 AM INJ TRIGGER POINT 1/2 MUSCL Reviewed 05/25/2012 12:00 AM Kenalog, Per 10 Mg [facility]#7602-6562-44 Reviewed 06/14/2012 12:00 AM DRAIN/INJ JOINT/BURSA W/O US Reviewed 06/14/2012 12:00 AM Kenalog, Per 10 Mg [facility]#2535-7265-21 Reviewed 07/11/2012 12:00 AM THER/PROPH/DIAG INJ SC/IM Reviewed 07/11/2012 12:00 AM Decadron 1 mg [facility]#[id number] (Manuel) Reviewed 07/11/2012 12:00 AM Depo-Medrol 80 mg [facility]#[id number]-Cbavcacv Reviewed 08/21/2012 12:00 AM ASSAY CARBOXYHB QUANT Reviewed 09/18/2012 12:00 AM DRAIN/INJ JOINT/BURSA W/O US Reviewed 09/18/2012 12:00 AM Kenalog, Per 10 Mg [facility]#9174-0073-79 Reviewed 10/13/2012 12:00 AM COMPREHEN METABOLIC PANEL Reviewed 10/13/2012 12:00 AM LIPID PANEL Reviewed 10/13/2012 12:00 AM GLYCOSYLATED HEMOGLOBIN TEST Reviewed 10/13/2012 12:00 AM MICROALBUMIN SEMIQUANT Reviewed 04/15/2010 12:00 AM MAMMOGRAM SCREENING Reviewed 12/06/2012 12:00 AM DRAIN/INJ JOINT/BURSA W/O US Reviewed 12/06/2012 12:00 AM Kenalog, Per 10 Mg [facility]#7705-4030-22 Reviewed 12/22/2012 12:00 AM TOTAL CORTISOL Reviewed 04/26/2013 12:00 AM DRAIN/INJ JOINT/BURSA W/O US Reviewed 04/26/2013 12:00 AM Kenalog, Per 10 Mg [facility]#0626-1184-88 Reviewed 05/10/2013 12:00 AM DRAIN/INJ JOINT/BURSA W/O US Reviewed 05/10/2013 12:00 AM Kenalog, Per 10 Mg [facility]#9899-9298-01 Reviewed 05/10/2013 12:00 AM DRAIN/INJ JOINT/BURSA W/O US Reviewed 05/10/2013 12:00 AM Kenalog, Per 10 Mg [facility]#7700-6088-18 Reviewed 05/28/2013 12:00 AM MAMMOGRAM SCREENING Reviewed [...] Per 10 Mg [facility]#4674-3120-98 Reviewed 04/05/2014 12:00 AM COMPLETE CBC W/AUTO [...] BILI 0.90 mg/dLCALCIUM 9.50 mg/dLeGFR >60 mL/min/1.73 [id number] 18.0 U/L 01/02/2014 10:02 AM GLUCOSE 134.0 [...] Start Date [employer] [place] [id number] Wednesday, 2009 [employer] [place] [id number] Saturday, 2009 History of Encounters Visit Date Visit Type Provider 07/02/2015 Office visit Cass BRAY 06/04/2015 Office visit Cass BRAY 05/15/2015 Office visit Brannon Jackson DO 05/08/2015 Nurse visit Cass BRAY 04/28/2015 Office visit Brannon Jackson DO 04/09/2015 Office visit Cass BRAY 04/01/2015 Winifred Zhu MD 04/01/2015 Office visit Brannon Jackson DO 03/10/2015 Office visit Cass BRYA 02/25/2015 Office visit Cass BRAY 02/05/2015 Nurse visit Cass RBAY 12/17/2014 Hospital Dinesh Zhu MD 12/17/2014 Office visit Brannon Jackson DO 12/12/2014 Office visit Cass BRAY 10/29/2014 Office visit Cass ARCINIEGAP 10/02/2014 Office visit Cass ARCINIEGAP 09/20/2014 Office visit Brannon Jackson DO 09/05/2014 Office visit Cass ARCINIEGAP 07/29/2014 Office visit Cass ARCINIEGAP 07/18/2014 Office visit Brannon Jackson DO 07/03/2014 Office visit Rob Ruiz MODELING AND SIMULATION ANALYST 06/11/2014 Office visit Cass ARCINIEGAP 04/29/2014 Office visit Cass ARCINIEGAP 04/29/2014 Office visit Brannon Jackson DO 04/05/2014 Office visit Harjinder Paiz PA-C 02/25/2014 Office visit Cass ARCINIEGAP 01/02/2014 Office visit Cass ARCINIEGAP 12/18/2013 Office visit Cass BRAY 09/13/2013 Office visit Brannon Jackson DO 08/27/2013 Office visit Regina Mcnally MODELING AND SIMULATION ANALYST 08/17/2013 Office visit Ray Tripathi APRN 05/21/2013 Office visit Brannon Jackson DO 05/10/2013 Office visit Anirudh Conway MD 04/26/2013 Office visit Anirudh Conway MD 12/22/2012 Office visit Brannon Jackson DO 12/14/2012 [facility] Sandra Ca MD 12/12/2012 Office visit Brannon Jackson DO 12/12/2012 [facility] Sandra Ca MD 12/06/2012 Office visit Anirudh Conway MD 11/24/2012 Office visit Regina Mcnally APRN 10/12/2012 [facility] Anirudh Conway MD [...]
[2018-10-25 11:59] VITALS: BP 122/75
--- OUTSIDE RECORDS SUMMARY | 2018-10-25 12:06 | XMS REPORT ---
Author Author Brannon Jackson [facility] Address [address] [place], [place] [id number] Care Team Providers Care Contractor Broomcorn Threshing Name Role Phone Brannon Jackson PCP Unavailable [...] 2 times per day for 7 days [place] Thyroid 120 mg oral tablet 12/14/2012 12/09/2013 [...] Reviewed 12/13/2011 12:00 AM Kenalog per 10Mg Im-Ndc#[address]-21(Man) Reviewed 12/23/2011 12:00 AM DRAIN/INJ JOINT/BURSA W/O US Reviewed 12/23/2011 12:00 AM Kenalog 40 Mg Im-Ndc#6748-8255-30 Reviewed 05/25/2012 12:00 AM INJ TRIGGER POINT 1/2 MUSCL Reviewed 05/25/2012 12:00 AM Kenalog, Per 10 Mg NDC#0074-8250-04 Reviewed 06/14/2012 12:00 AM DRAIN/INJ JOINT/BURSA W/O US Reviewed 06/14/2012 12:00 AM Kenalog, Per 10 Mg NDC#5281-1186-73 Reviewed 07/11/2012 12:00 AM THER/PROPH/DIAG INJ SC/IM Reviewed 07/11/2012 12:00 AM Decadron 1 mg [facility]#[id number] (Manuel) Reviewed 07/11/2012 12:00 AM Depo-Medrol 80 mg [facility]#[id number]-Udxevlbx Reviewed 08/21/2012 12:00 AM ASSAY CARBOXYHB QUANT Reviewed 09/18/2012 12:00 AM DRAIN/INJ JOINT/BURSA W/O US Reviewed 09/18/2012 12:00 AM Kenalog, Per 10 Mg [facility]#6717-0837-93 Reviewed 10/13/2012 12:00 AM COMPREHEN METABOLIC PANEL Reviewed 10/13/2012 12:00 AM LIPID PANEL Reviewed 10/13/2012 12:00 AM GLYCOSYLATED HEMOGLOBIN TEST Reviewed 10/13/2012 12:00 AM MICROALBUMIN SEMIQUANT Reviewed 04/15/2010 12:00 AM MAMMOGRAM SCREENING Reviewed 12/06/2012 12:00 AM DRAIN/INJ JOINT/BURSA W/O US Reviewed 12/06/2012 12:00 AM Kenalog, Per 10 Mg [facility]#7097-5076-10 Reviewed 12/22/2012 12:00 AM TOTAL CORTISOL Reviewed 04/26/2013 12:00 AM DRAIN/INJ JOINT/BURSA W/O US Reviewed 04/26/2013 12:00 AM Kenalog, Per 10 Mg [facility]#2425-8857-76 Reviewed 05/10/2013 12:00 AM DRAIN/INJ JOINT/BURSA W/O US Reviewed 05/10/2013 12:00 AM Kenalog, Per 10 Mg [facility]#3477-3108-29 Reviewed 05/10/2013 12:00 AM DRAIN/INJ JOINT/BURSA W/O US Reviewed 05/10/2013 12:00 AM Kenalog, Per 10 Mg [facility]#0007-3955-98 Reviewed 05/28/2013 12:00 AM MAMMOGRAM SCREENING Reviewed [...] 03/05/2014 12:00 AM Kenalog, Per 10 Mg [facility]#3400-9039-93 Reviewed 04/05/2014 12:00 AM COMPLETE CBC W/AUTO [...] BILI 0.90 mg/dLCALCIUM 9.50 mg/dLeGFR >60 mL/min/1.73 [id number] 18.0 U/L 01/02/2014 10:02 AM GLUCOSE 134.0 [...] Policy Group Number Start Date [employer] [facility] [id number] Wednesday, 2009 [employer] [facility] [id number] Saturday, 2009 History of Encounters Visit Date [...] Jackson DO 12/12/2014 Office visit Cass Arellano COACH 10/29/2014 Office visit Cass Arellano COACH 10/02/2014 Office visit Cass Arellano COACH 09/20/2014 Office visit Brannon Manuel DO 09/05/2014 Office visit Cass Arellano COACH 07/29/2014 Office visit Cass Arellano COACH 07/18/2014 Office visit Brannon Jackson DO 07/03/2014 Office visit Rob Ruiz GLASS POLISHER 06/11/2014 Office visit Cass Arellano COACH 04/29/2014 Office visit Cass Arellano COACH 04/29/2014 Office visit Brannon Jackson DO 04/05/2014 Office visit Harjinder Paiz PA-C 02/25/2014 Office visit Cass Arellano COACH 01/02/2014 Office visit Cass Arellano COACH 12/18/2013 Office visit Cass ARCINIEGAP 09/13/2013 Office visit Brannon Jackson DO 08/27/2013 Office visit Regina Mcnally GLASS POLISHER 08/17/2013 Office visit Ray Tripathi GLASS POLISHER 05/21/2013 Office visit Brannon Jackson DO 05/10/2013 Office visit Anirudh Conway MD 04/26/2013 Office visit Anirudh Conway MD 12/22/2012 Office visit Brannon Jackson DO 12/14/2012 [facility] Sandra Ca MD 12/12/2012 Office visit Brannon Jackson DO 12/12/2012 [facility] Sandra Ca MD 12/06/2012 Office visit Anirudh Conway MD 11/24/2012 Office visit Regina Mcnally APRN 10/12/2012 [facility] Anirudh Conway MD 10/10/2012 Office visit Brannon Jackson DO 09/18/2012 Office visit Anirudh Conway MD 09/01/2012 Office visit Brannon Jackson DO 08/21/2012 Office visit Brannon Jackson DO 08/01/2012 Office visit Brannon Jackson DO 07/11/2012 Office visit Regina Mcnally GLASS POLISHER 06/14/2012 Office visit Anirudh Conway MD 05/25/2012 [...]
--- OUTSIDE RECORDS SUMMARY | 2018-10-25 12:08 | XMS REPORT ---
Author Author Brannon Jackson [facility] Address [address] [place], [place] [address] Care Team Providers Care Cardroom Worker Name Role Phone Brannon Jackson PCP [...] 2 times per day for 7 days [place] Thyroid 120 mg oral tablet 12/14/2012 12/09/2013 [...] Reviewed 12/13/2011 12:00 AM Kenalog per 10Mg Im-Nd#[address]-81(Man) Reviewed 12/23/2011 12:00 AM DRAIN/INJ JOINT/BURSA W/O US Reviewed 12/23/2011 12:00 AM Kenalog 40 Mg Im-Ndc#5248-4476-96 Reviewed 05/25/2012 12:00 AM INJ TRIGGER POINT 1/2 MUSCL Reviewed 05/25/2012 12:00 AM Kenalog, Per 10 Mg N[facility]#1167-1243-89 Reviewed 06/14/2012 12:00 AM DRAIN/INJ JOINT/BURSA W/O US Reviewed 06/14/2012 12:00 AM Kenalog, Per 10 Mg [facility]#2289-2582-66 Reviewed 07/11/2012 12:00 AM THER/PROPH/DIAG INJ SC/IM Reviewed 07/11/2012 12:00 AM Decadron 1 mg [facility]#[id number] (Manuel) Reviewed 07/11/2012 12:00 AM Depo-Medrol 80 mg ND#[id number]-Avwtecng Reviewed 08/21/2012 12:00 AM ASSAY CARBOXYHB QUANT Reviewed 09/18/2012 12:00 AM DRAIN/INJ JOINT/BURSA W/O US Reviewed 09/18/2012 12:00 AM Kenalog, Per 10 Mg ND#3295-1379-78 Reviewed 10/13/2012 12:00 AM COMPREHEN METABOLIC PANEL Reviewed 10/13/2012 12:00 AM LIPID PANEL Reviewed 10/13/2012 12:00 AM GLYCOSYLATED HEMOGLOBIN TEST Reviewed 10/13/2012 12:00 AM MICROALBUMIN SEMIQUANT Reviewed 04/15/2010 12:00 AM MAMMOGRAM SCREENING Reviewed 12/06/2012 12:00 AM DRAIN/INJ JOINT/BURSA W/O US Reviewed 12/06/2012 12:00 AM Kenalog, Per 10 Mg ND#2223-0518-92 Reviewed 12/22/2012 12:00 AM TOTAL CORTISOL Reviewed 04/26/2013 12:00 AM DRAIN/INJ JOINT/BURSA W/O US Reviewed 04/26/2013 12:00 AM Kenalog, Per 10 Mg [facility]#0968-8070-11 Reviewed 05/10/2013 12:00 AM DRAIN/INJ JOINT/BURSA W/O US Reviewed 05/10/2013 12:00 AM Kenalog, Per 10 Mg NDC#0684-9745-56 Reviewed 05/10/2013 12:00 AM DRAIN/INJ JOINT/BURSA W/O US Reviewed 05/10/2013 12:00 AM Kenalog, Per 10 Mg NDC#8543-2421-33 Reviewed 05/28/2013 12:00 AM MAMMOGRAM SCREENING Reviewed [...] Per 10 Mg [facility]#5230-4795-07 Reviewed 04/05/2014 12:00 AM COMPLETE CBC W/AUTO [...] BILI 0.90 mg/dLCALCIUM 9.50 mg/dLeGFR >60 mL/min/1.73 [id number] 18.0 U/L 01/02/2014 10:02 AM GLUCOSE 134.0 [...] Number Policy Group Number Start Date [facility] Gpa [id number] Saturday, 2015 [employer] [place] [id number] Saturday, 2009 [employer] [place] [id number] Wednesday, 2009 History of Encounters Visit Date Visit Type Provider 05/05/2016 Office visit 05/05/2016 Office visit Brannon Jackson DO 02/05/2016 Office visit Brannon Jackson DO 12/09/2015 Voided Cass Arellano [facility] 10/13/2015 Office visit Brannon Simpsonrodri BALTAZAR 09/18/2015 Nurse visit Cass ARCINIEGAP 09/03/2015 Procedures Reagan Lehman DO 08/29/2015 Office visit Brannon Tidwellburt BALTAZAR 08/20/2015 Office visit Cass ARCINIEGAP 08/01/2015 Office visit Cass ARCINIEGAP 07/02/2015 Office visit Cass BRAY 06/04/2015 Office visit Cass BRAY 05/15/2015 Office visit Brannon Tidwellburt BALTAZAR 05/08/2015 Nurse visit Cass BRAY 04/28/2015 Office visit 04/28/2015 Office visit Brannon Tidwellburt BALTAZAR 04/09/2015 Office visit Cass BRAY 04/01/2015 Procedures Dinesh Zhu MD 04/01/2015 Office visit Brannon Tidwellburt BATLAZAR 03/10/2015 Office visit Cass BRAY 02/25/2015 Office [...] visit Cass ARCINIEGAP 04/29/2014 Office visit Cass BRAY 04/29/2014 Office visit Brannon Manuel DO 04/05/2014 Office visit Harjinder Paiz PA-C 02/25/2014 Office visit aCss BRAY 01/02/2014 Office visit Cass ARCINIEGAP 12/18/2013 Office visit Cass ARCINIEGAP 09/13/2013 Office visit Barnnon Jackson DO 08/27/2013 Office visit Regina Mcnally APRN 08/17/2013 Office visit Ray Tripathi APRN 05/21/2013 Office visit Brannon Manuel DO 05/10/2013 Office visit Anirudh Conway MD 04/26/2013 Office visit Anirudh Conway MD 12/22/2012 Office visit Brannon Manuel DO 12/14/2012 [facility] Sandra Ca MD 12/12/2012 Office visit Brannon Manuel DO 12/12/2012 [facility] Sandra Ca MD 12/06/2012 Office visit Anirudh Conway MD 11/24/2012 Office visit Regina Mcnally RESCUE WORKER 10/12/2012 [facility] Anirudh Conway MD 10/10/2012 Office visit Brannon Manuel DO 09/18/2012 Office visit Anirudh Conway MD 09/01/2012 Office visit Brannon Manuel DO 08/21/2012 Office visit Brannon Manuel DO 08/01/2012 Office visit Brannon Manuel DO 07/11/2012 Office visit Regina Mcnally RESCUE WORKER 06/14/2012 Office visit Anirudh Conway MD 05/25/2012 Office visit Anirudh Conway MD 05/04/2012 Office visit Brannon Simpsonte DO 12/23/2011 Office visit Anirudh Conway MD 12/16/2011 Office visit Brannon Jackson DO 12/06/2011 Office visit Anirudh Conway MD 11/11/2011 Office visit Brannon Manuel DO 10/28/2011 Office visit Brannon Manuel DO 10/22/2011 [facility] Valery Cerna MD 10/21/2011 [facility] Valery Cerna MD 10/19/2011 Office visit Brannon Manuel DO 10/19/2011 [facility] Anderson Dawkins MD 10/07/2011 Office visit Brannon Manuel DO 04/27/2011 Office visit Brannon Manuel DO 04/16/2011 Office visit Brannon Manuel DO 12/18/2010 Office visit Brannon Manuel DO 11/17/2010 Office visit Brannon Manuel DO 10/08/2010 Office visit Brannon Manuel DO 08/18/2010 Office visit Regina Mcnally RESCUE WORKER 02/03/2010 Office visit Brannon Manuel DO 12/02/2009 Office visit Brannon Manuel DO 06/27/2009 Office visit Brannon Manuel DO
--- OUTSIDE RECORDS SUMMARY | 2018-10-25 12:10 | XMS REPORT ---
Author Author Brannon Jackson [facility] Address [address] [place], [place] [address] Care Team Providers Care Green Pipefitter Name Role Phone Brannon Jackson PCP Unavailable [...] 3 mo supply for mail order through [employer] amitriptyline oral tablet 10 mg 08/29/2014 11/22/2015 [...] 2 times per day for 7 days [place] Thyroid oral tablet 120 mg 12/14/2012 12/09/2013 [...] BILI 0.90 mg/dLCALCIUM 9.50 mg/dLeGFR >60 mL/min/1.73 [id number] 18.0 U/L 01/02/2014 10:02 AM GLUCOSE 134.0 [...] Group Number Start Date [employer] [place] [id number] Wednesday, 2009 [employer] [place] [id number] Saturday, 2009 History of Encounters Visit Date [...] APRN 08/17/2013 Office visit Ray KirbyMonse Tripathi DIRECTOR COMPLIANCE 05/21/2013 Office visit Brannon Jackson DO 05/10/2013 Office visit Anirudh Conway MD 04/26/2013 Office visit Anirudh Conway MD 12/22/2012 Office visit Brannon Jackson DO 12/14/2012 [facility] Sandra Ca MD 12/12/2012 Office visit Brannon Jackson DO 12/12/2012 [facility] Sandra Ca MD 12/06/2012 Office visit Anirudh Conway MD 11/24/2012 Office visit Regina Mcnally DIRECTOR COMPLIANCE 10/12/2012 [facility] Anirudh Conway MD 10/10/2012 Office visit Brannon Simpsonte DO 09/18/2012 Office visit Anirudh Conway MD 09/01/2012 Office visit Brannon Simpsonte DO 08/21/2012 Office visit Brannon Jackson DO 08/01/2012 Office visit Brannon Simpsonte DO 07/11/2012 Office visit Regina Mcnally DIRECTOR COMPLIANCE 06/14/2012 Office visit Anirudh Conway MD 05/25/2012 Office visit Anirudh Conway MD 05/04/2012 Office visit Brannon Jackson DO 12/23/2011 Office visit Anirudh Conway MD 12/16/2011 Office visit Brannon Jackson DO 12/06/2011 Office visit Anirudh Conway MD 11/11/2011 Office visit Brannon Jackson DO 10/28/2011 Office visit Brannon Manuel DO 10/22/2011 [facility] Valery Cerna MD 10/21/2011 [facility] Valery Cerna MD 10/19/2011 Office visit Brannon Manuel DO 10/19/2011 [facility] Anderson Dawkins MD 10/07/2011 Office visit Brannon Manuel DO 04/27/2011 Office visit Brannon Manuel DO 04/16/2011 Office visit Brannon Manuel DO 12/18/2010 Office visit Brannon Manuel DO 11/17/2010 Office visit Brannon Manuel DO 10/08/2010 Office visit Brannon Manuel DO 08/18/2010 Office visit Regina Mcnally DIRECTOR COMPLIANCE 02/03/2010 Office visit Brannon Manuel DO 12/02/2009 Office visit Brannon Manuel DO 06/27/2009 Office visit Brannon Manuel DO
--- OUTSIDE RECORDS SUMMARY | 2018-10-25 12:19 | XMS REPORT ---
Author Author Brannon Jackson [facility] Address [address] [place], [place] [address] Care Team Providers Care Chemical Engineering Technician Name Role Phone Brannon Jackson PCP [...] 2 times per day for 7 days [place] Thyroid 120 mg oral tablet 12/14/2012 12/09/2013 [...] Taking Janumet hydrocodone-acetaminophen 10-325 mg oral tablet 03/15/2017 04/14/2017 take 1 tablet by oral route every 6 hours for 30 days May fill 03/17/17 Discontinued Name Start Date Discontinued Date SIG [...] Reviewed 12/13/2011 12:00 AM Kenalog per 10Mg Im-[facility]#[address]-92(Man) Reviewed 12/23/2011 12:00 AM DRAIN/INJ JOINT/BURSA W/O US Reviewed 12/23/2011 12:00 AM Kenalog 40 Mg [facility]#5430-8915-83 Reviewed 11/19/2016 12:00 AM X-RAY EXAM OF HAND Reviewed 01/19/2017 12:00 AM COMPLETE CBC W/AUTO DIFF WBC Reviewed 01/19/2017 12:00 AM COMPREHEN METABOLIC PANEL Reviewed 01/19/2017 12:00 AM GLYCOSYLATED HEMOGLOBIN TEST Reviewed 05/25/2012 12:00 AM INJ TRIGGER POINT 1/2 MUSCL Reviewed 05/25/2012 12:00 AM Kenalog, Per 10 Mg [facility]#9392-3412-73 Reviewed 06/14/2012 12:00 AM DRAIN/INJ JOINT/BURSA W/O US Reviewed 06/14/2012 12:00 AM Kenalog, Per 10 Mg [facility]#1607-8779-19 Reviewed 07/11/2012 12:00 AM THER/PROPH/DIAG INJ SC/IM Reviewed 07/11/2012 12:00 AM Decadron 1 mg [facility]#[id number] (Manuel) Reviewed 07/11/2012 12:00 AM Depo-Medrol 80 mg [facility]#[id number]-Lvdleige Reviewed 08/21/2012 12:00 AM ASSAY CARBOXYHB QUANT Reviewed 09/18/2012 12:00 AM DRAIN/INJ JOINT/BURSA W/O US Reviewed 09/18/2012 12:00 AM Kenalog, Per 10 Mg [facility]#9225-0228-61 Reviewed 10/13/2012 12:00 AM COMPREHEN METABOLIC PANEL Reviewed 10/13/2012 12:00 AM LIPID PANEL Reviewed 10/13/2012 12:00 AM GLYCOSYLATED HEMOGLOBIN TEST Reviewed 10/13/2012 12:00 AM MICROALBUMIN SEMIQUANT Reviewed 04/15/2010 12:00 AM MAMMOGRAM SCREENING Reviewed 12/06/2012 12:00 AM DRAIN/INJ JOINT/BURSA W/O US Reviewed 12/06/2012 12:00 AM Kenalog, Per 10 Mg [facility]#0502-0266-53 Reviewed 12/22/2012 12:00 AM TOTAL CORTISOL Reviewed 04/26/2013 12:00 AM DRAIN/INJ JOINT/BURSA W/O US Reviewed 04/26/2013 12:00 AM Kenalog, Per 10 Mg [facility]#6466-7189-18 Reviewed 05/10/2013 12:00 AM DRAIN/INJ JOINT/BURSA W/O US Reviewed 05/10/2013 12:00 AM Kenalog, Per 10 Mg [facility]#4203-1021-13 Reviewed 05/10/2013 12:00 AM DRAIN/INJ JOINT/BURSA W/O US Reviewed 05/10/2013 12:00 AM Kenalog, Per 10 Mg [facility]#4805-1924-90 Reviewed 05/28/2013 12:00 AM MAMMOGRAM SCREENING Reviewed [...] 03/05/2014 12:00 AM Kenalog, Per 10 Mg [facility]#3003-6910-19 Reviewed 04/05/2014 12:00 AM COMPLETE CBC W/AUTO [...] Policy Number Policy Group Number Start Date [facility] Gpa [id number] Saturday, 2015 [employer] [place] [id number] Saturday, 2009 [facility] [id number] Wednesday, 2009 History of Encounters Visit Date Visit Type Provider 03/08/2017 Office visit Brannon Simpsonte DO 01/25/2017 Office visit Brannon Simpsonte DO 01/19/2017 Office visit Regina Mcnally MEDICAL INFORMATION SPECIALIST 01/04/2017 Procedures Reagan Lehman DO 12/24/2016 Office visit Brannon Simpsonte DO 12/23/2016 Surgery Reagan Lehman DO 12/14/2016 Office visit Reagan Lehman DO 11/25/2016 Office visit Brannon Tidwellhite DO 11/19/2016 Office visit Sandra Yoan MEDICAL INFORMATION SPECIALIST 11/02/2016 Office visit Lakia Reina MEDICAL INFORMATION SPECIALIST 09/09/2016 Office visit Brannon Tidwellhite DO 05/18/2016 [...] Simpsonte DO 09/05/2014 Office visit Cassrosamaria Arellano PIPELINE DISPATCHER 07/29/2014 Office visit Cass DevinMonse Adan PIPELINE DISPATCHER 07/18/2014 Office visit Brannon Manuel DO 07/03/2014 Office visit Rob Ruiz MEDICAL INFORMATION SPECIALIST 06/11/2014 Office visit Cass Arellano PIPELINE DISPATCHER 04/29/2014 Office visit Cass Arellano PIPELINE DISPATCHER 04/29/2014 Office visit Brannon Manuel DO 04/05/2014 Office visit Harjinder Paiz PA-C 02/25/2014 Office visit Cass Arellano PIPELINE DISPATCHER 01/02/2014 Office visit Cass Arellano PIPELINE DISPATCHER 12/18/2013 Office visit Cass Arellano PIPELINE DISPATCHER 09/13/2013 Office visit Brannon Jackson DO 08/27/2013 Office visit Regina Mcnally MEDICAL INFORMATION SPECIALIST 08/17/2013 Office visit Ray Tripathi MEDICAL INFORMATION SPECIALIST 05/21/2013 Office visit Brannon Jackson DO 05/10/2013 Office visit Anirudh Conway MD 04/26/2013 Office visit Anirudh Conway MD 12/22/2012 Office visit Brannon Jackson DO 12/14/2012 [facility] Sandra Ca MD 12/12/2012 Office visit Brannon Jackson DO 12/12/2012 [facility] Sandra Ca MD 12/06/2012 Office visit Anirudh Conway MD 11/24/2012 Office visit Regina Mcnally MEDICAL INFORMATION SPECIALIST 10/12/2012 [facility] Anirudh Conway MD 10/10/2012 Office visit Brannon Jackson DO 09/18/2012 Office visit Anirudh Conway MD 09/01/2012 Office visit Brannon Jackson DO 08/21/2012 Office visit Brannon Jackson DO 08/01/2012 Office visit Brannon Jackson DO 07/11/2012 Office visit Regina Mcnally MEDICAL INFORMATION SPECIALIST 06/14/2012 Office visit Anirudh Conway MD [...]
--- OUTSIDE RECORDS SUMMARY | 2018-10-25 12:25 | XMS REPORT ---
Author Author Brannon Jackson [facility] Address [address] [place], [place] [address] Care Team Providers Care Spa Concierge Name Role Phone Brannon Jackson PCP Brannon [...] 2 times per day for 7 days [place] Thyroid 120 mg oral tablet 12/14/2012 12/09/2013 [...] Reviewed 12/13/2011 12:00 AM Kenalog per 10Mg [facility]#[address]-46(Man) Reviewed 12/23/2011 12:00 AM DRAIN/INJ JOINT/BURSA W/O US Reviewed 12/23/2011 12:00 AM Kenalog 40 Mg Im-[facility]#2912-0069-49 Reviewed 11/19/2016 12:00 AM X-RAY EXAM OF HAND Reviewed 01/19/2017 12:00 AM COMPLETE CBC W/AUTO DIFF WBC Reviewed 01/19/2017 12:00 AM COMPREHEN METABOLIC PANEL Reviewed 01/19/2017 12:00 AM GLYCOSYLATED HEMOGLOBIN TEST Reviewed 05/25/2012 12:00 AM INJ TRIGGER POINT 1/2 MUSCL Reviewed 05/25/2012 12:00 AM Kenalog, Per 10 Mg [facility]#7813-5707-94 Reviewed 06/14/2012 12:00 AM DRAIN/INJ JOINT/BURSA W/O US Reviewed 06/14/2012 12:00 AM Kenalog, Per 10 Mg [facility]#5501-4243-07 Reviewed 05/09/2017 12:00 AM MAMMOGRAPHY SCREENING, DIGITAL Reviewed 07/11/2012 12:00 AM THER/PROPH/DIAG INJ SC/IM Reviewed 07/11/2012 12:00 AM Decadron 1 mg [facility]#[id number] (Manuel) Reviewed 07/11/2012 12:00 AM Depo-Medrol [address] [facility]#[id number]-Uqgbeqwm Reviewed 08/21/2012 12:00 AM ASSAY CARBOXYHB QUANT Reviewed 09/01/2017 12:00 AM RADIOLOGIC EXAMINATION KNEE 1/2 VIEWS Reviewed 09/18/2012 12:00 AM DRAIN/INJ JOINT/BURSA W/O US Reviewed 09/18/2012 12:00 AM Kenalog, Per [address] [facility]#6280-2440-09 Reviewed 10/25/2017 12:00 AM RADIOLOGIC EXAMINATION KNEE [...] Kenalog, Per [address] [facility]#5892-7127-79 Reviewed 12/22/2012 12:00 AM TOTAL CORTISOL Reviewed 04/26/2013 12:00 AM DRAIN/INJ JOINT/BURSA W/O US Reviewed 04/26/2013 12:00 AM Kenalog, Per [address] [facility]#4042-5055-49 Reviewed 05/10/2013 12:00 AM DRAIN/INJ JOINT/BURSA W/O US Reviewed 05/10/2013 12:00 AM Kenalog, Per [address] [facility]#8705-4120-21 Reviewed 05/10/2013 12:00 AM DRAIN/INJ JOINT/BURSA W/O US Reviewed 05/10/2013 12:00 AM Kenalog, Per [address] [facility]#3202-8153-17 Reviewed 05/28/2013 12:00 AM MAMMOGRAM SCREENING Reviewed [...] Kenalog, Per [address] [facility]#1609-2197-77 Reviewed 04/05/2014 12:00 AM COMPLETE CBC W/AUTO [...] Policy Number Policy Group Number Start Date [facility] Gpa [id number] Saturday, 2015 [employer] [place] [id number] Saturday, 2009 [employer] [place] [id number] Wednesday, 2009 History of Encounters Visit Date Visit Type Provider 03/28/2018 Office visit Brannon Jackson DO 12/02/2017 Office visit Brannon Jackson DO 11/11/2017 Office visit Brannon Jackson DO 11/09/2017 Office visit Harjinder Paiz PA-C 10/28/2017 Office visit Lakia Reina PRINCIPAL CONSULTANT 10/25/2017 Office visit Regina Mcnally PRINCIPAL CONSULTANT 10/05/2017 Office visit Regina Mcnally PRINCIPAL CONSULTANT 09/01/2017 Office visit Brannon Manuel DO 06/29/2017 Office visit Karyna Gilbert PRINCIPAL CONSULTANT 06/18/2017 Office visit Karyna Gilbert PRINCIPAL CONSULTANT 05/09/2017 Office visit Brannon Manuel DO 03/08/2017 Office visit Brannon Manuel DO 01/25/2017 Office visit Brannon Manuel DO 01/19/2017 Office visit Regina Mcnally PRINCIPAL CONSULTANT 01/04/2017 Procedures Reagan Guzmanuman DO 12/24/2016 Office visit Brannon Manuel DO 12/23/2016 Surgery Reagan Bouman DO 12/14/2016 Office visit Reagan Thomasuman DO 11/25/2016 Office visit Brannon Manuel DO 11/19/2016 Office visit Sandra Yoan PRINCIPAL CONSULTANT 11/02/2016 Office visit Lakia Reina PRINCIPAL CONSULTANT 09/09/2016 Office visit Brannon Manuel DO 05/18/2016 [...] Manuel DO 12/12/2014 Office visit Cass Arellano PLATE PAINTER APPRENTICE 10/29/2014 Office visit Cass Arellano PLATE PAINTER APPRENTICE 10/02/2014 Office visit Cass Arellano PLATE PAINTER APPRENTICE 09/20/2014 Office visit Brannon Jackson DO 09/05/2014 Office visit Cass Arellano PLATE PAINTER APPRENTICE 07/29/2014 Office visit Cass Arellano PLATE PAINTER APPRENTICE 07/18/2014 Office visit Brannon Manuel DO 07/03/2014 Office visit Rob Ruiz PRINCIPAL CONSULTANT 06/11/2014 Office visit Cass Arellano PLATE PAINTER APPRENTICE 04/29/2014 Office visit Cass Arellano PLATE PAINTER APPRENTICE 04/29/2014 Office visit Brannon Jackson DO 04/05/2014 Office visit Harjinder Paiz PA-C 02/25/2014 Office visit Cass ARCINIEGAP 01/02/2014 Office visit Cass ARCINIEGAP 12/18/2013 Office visit Cass ARCINIEGAP 09/13/2013 Office visit Brannon Jackson DO 08/27/2013 Office visit Regina Mcnally PRINCIPAL CONSULTANT 08/17/2013 Office visit Ray Tripathi PRINCIPAL CONSULTANT 05/21/2013 Office visit Brannon Jackson DO 05/10/2013 Office visit Anirudh Conway MD 04/26/2013 Office visit Anirudh Conway MD 12/22/2012 Office visit Brannon Jackson DO 12/14/2012 [facility] Sandra Ca MD 12/12/2012 Office visit Brannon Jackson DO 12/12/2012 [facility] Sandra Ca MD 12/06/2012 Office visit Anirudh Conway MD 11/24/2012 Office visit Regina Mcnally PRINCIPAL CONSULTANT 10/12/2012 [facility] Anirudh Conway MD 10/10/2012 Office visit Brannon Jackson DO 09/18/2012 Office visit Anirudh Conway MD 09/01/2012 Office visit Brannon Jackson DO 08/21/2012 Office visit Branonn Jackson DO 08/01/2012 Office visit Brannon Jackson DO 07/11/2012 Office visit Regina Mcnally PRINCIPAL CONSULTANT 06/14/2012 Office visit Anirudh Conway MD [...] Jackson DO 08/18/2010 Office visit Regina Mcnally PRINCIPAL CONSULTANT 02/03/2010 Office visit Brannon Jackson DO 12/02/2009 Office visit Brannon Jackson DO 06/27/2009 Office visit Brannon Jackson DO
[2018-10-25 12:29] VITALS: BP 127/83
--- OUTSIDE RECORDS SUMMARY | 2018-10-25 12:33 | XMS REPORT ---
Author Author Brannon Jackson [facility] Address [address] [place], [place] [id number] Care Team Providers Care Appraisal Specialist Name Role Phone Brannon Jackson PCP [...] 2 times per day for 7 days [place] Thyroid 120 mg oral tablet 12/14/2012 12/09/2013 [...] 12/13/2011 12:00 AM Kenalog per 10Mg Im-[facility]#[address]-25(Man) Reviewed 12/23/2011 12:00 AM DRAIN/INJ JOINT/BURSA W/O US Reviewed 12/23/2011 12:00 AM Kenalog 40 Mg Im-Ndc#1346-4230-81 Reviewed 05/25/2012 12:00 AM INJ TRIGGER POINT 1/2 MUSCL Reviewed 05/25/2012 12:00 AM Kenalog, Per 10 Mg ND#9152-9824-26 Reviewed 06/14/2012 12:00 AM DRAIN/INJ JOINT/BURSA W/O US Reviewed 06/14/2012 12:00 AM Kenalog, Per 10 Mg [facility]#8293-3958-33 Reviewed 07/11/2012 12:00 AM THER/PROPH/DIAG INJ SC/IM Reviewed 07/11/2012 12:00 AM Decadron 1 mg [facility]#[id number] (Manuel) Reviewed 07/11/2012 12:00 AM Depo-Medrol 80 mg ND#[id number]-Loexilrk Reviewed 08/21/2012 12:00 AM ASSAY CARBOXYHB QUANT Reviewed 09/18/2012 12:00 AM DRAIN/INJ JOINT/BURSA W/O US Reviewed 09/18/2012 12:00 AM Kenalog, Per 10 Mg [facility]#3914-1405-08 Reviewed 10/13/2012 12:00 AM COMPREHEN METABOLIC PANEL Reviewed 10/13/2012 12:00 AM LIPID PANEL Reviewed 10/13/2012 12:00 AM GLYCOSYLATED HEMOGLOBIN TEST Reviewed 10/13/2012 12:00 AM MICROALBUMIN SEMIQUANT Reviewed 04/15/2010 12:00 AM MAMMOGRAM SCREENING Reviewed 12/06/2012 12:00 AM DRAIN/INJ JOINT/BURSA W/O US Reviewed 12/06/2012 12:00 AM Kenalog, Per 10 Mg [facility]#4307-7972-53 Reviewed 12/22/2012 12:00 AM TOTAL CORTISOL Reviewed 04/26/2013 12:00 AM DRAIN/INJ JOINT/BURSA W/O US Reviewed 04/26/2013 12:00 AM Kenalog, Per 10 Mg [facility]#7014-0941-30 Reviewed 05/10/2013 12:00 AM DRAIN/INJ JOINT/BURSA W/O US Reviewed 05/10/2013 12:00 AM Kenalog, Per 10 Mg [facility]#2185-2222-84 Reviewed 05/10/2013 12:00 AM DRAIN/INJ JOINT/BURSA W/O US Reviewed 05/10/2013 12:00 AM Kenalog, Per 10 Mg [facility]#4269-9404-94 Reviewed 05/28/2013 12:00 AM MAMMOGRAM SCREENING Reviewed [...] Per 10 Mg [facility]#4127-8420-35 Reviewed 04/05/2014 12:00 AM COMPLETE CBC W/AUTO [...] BILI 0.90 mg/dLCALCIUM 9.50 mg/dLeGFR >60 mL/min/1.73 [id number] 18.0 U/L 01/02/2014 10:02 AM GLUCOSE 134.0 [...] Number Policy Group Number [facility] Date [id number] Wednesday, 2009 [employer] [facility] [id number] Saturday, 2009 History of Encounters Visit Date [...] Jackson DO 07/03/2014 Office visit Rob Ruiz MATERIALS MANAGEMENT SUPERVISOR 06/11/2014 Office visit Cass Arellano SURVEYING CREW RODMAN 04/29/2014 Office visit Cass ARCINIEGAP 04/29/2014 Office visit Brannon Jackson DO 04/05/2014 Office visit Harjinder Paiz PA-C 02/25/2014 Office visit Cass ARCINIEGAP 01/02/2014 Office visit Cass ARCINIEGAP 12/18/2013 Office visit Cass BRAY 09/13/2013 Office visit Brannon Jackson DO 08/27/2013 Office visit Regina Mcnally MATERIALS MANAGEMENT SUPERVISOR 08/17/2013 Office visit Ray Tripathi MATERIALS MANAGEMENT SUPERVISOR 05/21/2013 Office visit Brannon Jackson DO 05/10/2013 Office visit Anirudh Conway MD 04/26/2013 Office visit Anirudh Conway MD 12/22/2012 Office visit Brannon Jackson DO 12/14/2012 [facility] Sandra Ca MD 12/12/2012 Office visit Brannon Jackson DO 12/12/2012 [facility] Sandra Ca MD 12/06/2012 Office visit Anirudh Conway MD 11/24/2012 Office visit Regina Mcnally MATERIALS MANAGEMENT SUPERVISOR 10/12/2012 [facility] Anirudh Conway MD 10/10/2012 Office visit Brannon Jackson DO 09/18/2012 Office visit Anirudh Conway MD 09/01/2012 Office visit Brannon Jackson DO 08/21/2012 Office visit Brannon Jackson DO 08/01/2012 Office visit Brannon Jackson DO 07/11/2012 Office visit Regina Mcnally MATERIALS MANAGEMENT SUPERVISOR 06/14/2012 Office visit Anirudh Conway MD [...]
--- NOTE | 2018-10-25 12:36 | OPERATIVE REPORT ---
DATE OF SERVICE: 10/25/2018 PREOPERATIVE DIAGNOSES: 1. Right shoulder rotator cuff tear. 2. Right shoulder SLAP tear. POSTOPERATIVE DIAGNOSES: 1. Right shoulder rotator cuff tear. 2. Right shoulder SLAP tear. PROCEDURES: 1. Right shoulder arthroscopic biceps tenotomy. 2. Right shoulder arthroscopic acromioplasty. 3. Right shoulder open rotator cuff repair. SURGEON: Ty Yoon MD. CHIEF CATALYST OPERATOR: Kamlesh Salazar, who assisted throughout the procedure and closed the incision. ANESTHESIA: General endotracheal plus interscalene nerve block. ESTIMATED BLOOD LOSS: Minimal. DRAINS: None. COMPLICATIONS: None. POSTOPERATIVE PLAN: Passive range of motion and sling wear for 4 weeks. The patient was transferred to the recovery room awake and in stable condition. STATEMENT OF MEDICAL NECESSITY: The patient is a 53-year-old right hand dominant female, who has had right shoulder pain and weakness for the last several months. An MRI revealed a three-tendon tear with retraction. In addition, the MRI revealed a SLAP tear. The patient was counseled that the rotator cuff tear may be irreparable. The patient understood this, but due to functional impairment, she elected to proceed with the surgical intervention. Examination under anesthesia revealed forward elevation of 170 degrees, external rotation of 90 degrees and internal rotation of 80 degrees. Arthroscopic findings demonstrated a tear involving the supraspinatus, infraspinatus and subscapularis with retraction to the glenoid. There was a type 2 SLAP tear. There were grade II chondral changes of the central portion of the humeral head and glenoid with no unstable chondral flaps. Subacromial space demonstrated moderate bursitis with sloping of the anterolateral acromion. DESCRIPTION OF PROCEDURE: After the risks and benefits of the procedure were discussed and questions were answered and informed consent was signed and placed on chart, the operative site was confirmed in the preoperative holding area initialed by the surgeon. The patient was transferred to the operating room and after adequate levels of regional plus general endotracheal anesthetic were obtained, a timeout was called confirming the operative site. Examination under anesthesia was performed. The above findings were noted. The right shoulder and upper extremity were prepped and draped in the usual sterile fashion. The shoulder joint was injected with 20 mL of fluid as well as subacromial space. A standard posterior portal was placed. Under direct visualization, an anterior portal was created in the interval between the biceps, subscapularis and glenoid. The biceps anchor was released and the stump was debrided with the shaver. The scope was redirected into the subacromial space. A lateral portal was created and a bursectomy was performed. The acromion was planed to a flat type 1 acromion. The lateral portal was then extended. The deltoid was split in line with its fibers leaving attached to the acromion for later reapproximation. The rotator cuff could not be mobilized with the supraspinatus or infraspinatus, but the anterior aspect was brought over the top using a single corkscrew anchor in a modified Nelson - Andrews repair. No undue tension was noted at the repair site. The wound was copiously irrigated. The deltoid was repaired in a side to side fashion using #2 FiberWire in a figure-of-8 interrupted fashion. The wound was further irrigated. A 2-0 Vicryl was used in the subcutaneous tissue. Skin was closed with 4-0 nylon in a running alternating horizontal mattress fashion. The shoulder joint was injected with Duramorph. The port sites were infiltrated with plain Marcaine. A soft dressing and sling were applied and the patient was transported to the recovery room awake and in stable condition. Job ID: [id number] DocumentID: [id number] Dictated Date: 10/25/2018 10:23:59 [employer] Mdm Developer Date: 10/25/2018 12:35:56 Dictated By: TY YOON MD
--- OUTSIDE RECORDS SUMMARY | 2018-10-25 12:42 | XMS REPORT ---
Author Reagan Lopez [facility] Address [address] [place], [place] [id number] Care Team Providers Care Group Fitness Assistant Department Head Name Role Phone Reagan Lehman PCP Unavailable [...] times per day for 7 days [place] Thyroid 120 mg oral tablet 12/14/2012 12/09/2013 [...] AM Kenalog per 10Mg Im-[facility]#[address]-63(Man) Reviewed 12/23/2011 12:00 AM DRAIN/INJ JOINT/BURSA W/O US Reviewed 12/23/2011 12:00 AM Kenalog 40 Mg Im-[facility]#8244-8160-13 Reviewed 11/19/2016 12:00 AM X-RAY EXAM OF HAND Reviewed 05/25/2012 12:00 AM INJ TRIGGER POINT 1/2 MUSCL Reviewed 05/25/2012 12:00 AM Kenalog, Per 10 Mg [facility]#3346-6493-59 Reviewed 06/14/2012 12:00 AM DRAIN/INJ JOINT/BURSA W/O US Reviewed 06/14/2012 12:00 AM Kenalog, Per 10 Mg [facility]#3363-1707-86 Reviewed 07/11/2012 12:00 AM THER/PROPH/DIAG INJ SC/IM Reviewed 07/11/2012 12:00 AM Decadron 1 mg [facility]#[id number] (Manuel) Reviewed 07/11/2012 12:00 AM Depo-Medrol 80 mg [facility]#[id number]-Ylcirlsk Reviewed 08/21/2012 12:00 AM ASSAY CARBOXYHB QUANT Reviewed 09/18/2012 12:00 AM DRAIN/INJ JOINT/BURSA W/O US Reviewed 09/18/2012 12:00 AM Kenalog, Per 10 Mg [facility]#5054-7472-73 Reviewed 10/13/2012 12:00 AM COMPREHEN METABOLIC PANEL Reviewed 10/13/2012 12:00 AM LIPID PANEL Reviewed 10/13/2012 12:00 AM GLYCOSYLATED HEMOGLOBIN TEST Reviewed 10/13/2012 12:00 AM MICROALBUMIN SEMIQUANT Reviewed 04/15/2010 12:00 AM MAMMOGRAM SCREENING Reviewed 12/06/2012 12:00 AM DRAIN/INJ JOINT/BURSA W/O US Reviewed 12/06/2012 12:00 AM Kenalog, Per 10 Mg [facility]#4413-8583-23 Reviewed 12/22/2012 12:00 AM TOTAL CORTISOL Reviewed 04/26/2013 12:00 AM DRAIN/INJ JOINT/BURSA W/O US Reviewed 04/26/2013 12:00 AM Kenalog, Per 10 Mg [facility]#5424-0975-80 Reviewed 05/10/2013 12:00 AM DRAIN/INJ JOINT/BURSA W/O US Reviewed 05/10/2013 12:00 AM Kenalog, Per 10 Mg [facility]#3273-4613-77 Reviewed 05/10/2013 12:00 AM DRAIN/INJ JOINT/BURSA W/O US Reviewed 05/10/2013 12:00 AM Kenalog, Per 10 Mg [facility]#0050-0170-78 Reviewed 05/28/2013 12:00 AM MAMMOGRAM SCREENING Reviewed [...] 10 Mg [facility]#5620-4296-86 Reviewed 04/05/2014 12:00 AM COMPLETE CBC W/AUTO [...] Group Number Start Date [facility] [id number] Saturday, 2015 [employer] [place] [id number] Saturday, 2009 [employer] [place] [id number] Wednesday, 2009 History of Encounters Visit Date Visit Type Provider 01/04/2017 Procedures Reagan Lehman DO 12/24/2016 Office visit Brannon Jackson DO 12/23/2016 Surgery Reagan Lehman DO 12/14/2016 Office visit Reagan Lehman DO 11/25/2016 Office visit Brannon Jackson DO 11/19/2016 Office visit Sandra Milton COSMETOLOGY PROFESSOR 11/02/2016 Office visit Lakia Reina COSMETOLOGY PROFESSOR 09/09/2016 Office visit Brannon Jackson DO [...] Dinesh Zhu MD 04/01/2015 Office visit Brannon Jakcson DO 03/10/2015 Office visit Cass BRAY 02/25/2015 [...] 12/22/2012 Office visit Brannon Jackson DO 12/14/2012 [facility] Sandra Ca MD 12/12/2012 Office visit Brannon Jackson DO 12/12/2012 [facility] Sandra Ca MD 12/06/2012 Office visit Anirudh Conway MD 11/24/2012 Office visit Regina Mcnally COSMETOLOGY PROFESSOR 10/12/2012 [facility] Anirudh Conway MD 10/10/2012 Office visit Brannon Jackson DO 09/18/2012 Office visit Anirudh Conway MD 09/01/2012 Office visit Brannon Manuel DO 08/21/2012 Office visit Brannon Manuel DO 08/01/2012 Office visit Brannon Simpsonte DO 07/11/2012 Office visit Regina Mcnally COSMETOLOGY PROFESSOR 06/14/2012 Office visit Anirudh Conway MD 05/25/2012 Office visit Anirudh Conway MD 05/04/2012 Office visit Brannon Jackson DO 12/23/2011 Office visit Anirudh Conway MD 12/16/2011 Office visit Brannon Jackson DO 12/06/2011 Office visit Anirudh Conway MD 11/11/2011 Office visit Brannon Jackson DO 10/28/2011 Office visit Brannon Jackson DO 10/22/2011 [facility] Valery Cerna MD 10/21/2011 [facility] Valery Cerna MD 10/19/2011 Office visit Brannon Manuel DO 10/19/2011 [facility] Anderson Dawkins MD 10/07/2011 Office visit Brannon Manuel DO 04/27/2011 Office visit Brannon Manuel DO 04/16/2011 Office visit Brannon Manuel DO 12/18/2010 Office visit Brannon Manuel DO 11/17/2010 Office visit Brannon Manuel DO 10/08/2010 Office visit Brannon Manuel DO 08/18/2010 Office visit Regina Mcnally COSMETOLOGY PROFESSOR 02/03/2010 Office visit Brannon Manuel DO 12/02/2009 Office visit Brannon Manuel DO 06/27/2009 Office visit Brannon Simpsonte DO
--- OUTSIDE RECORDS SUMMARY | 2018-10-25 12:44 | XMS REPORT ---
Author Author Brannon Jackson [facility] Address [address] [place] [id number] Care Team Providers Care Handle Finisher Name Role Phone Brannon Jackson PCP Unavailable Allergies and Adverse Reactions Name Reaction Notes Promethazine vomiting Zofran vomiting Plan of Treatment Planned Activity Comments Planned Date Planned Time Plan/Goal MRI PELVIS W/O DYE 08/01/2015 12:00 AM X-RAY EXAM OF HAND 08/29/2015 12:00 AM C-REACTIVE PROTEIN 05/04/2012 12:00 AM [...] 2 times per day for 7 days [place] Thyroid 120 mg oral tablet 12/14/2012 12/09/2013 [...] HC BMI BSA BMI Percentile O2 Sat(%) 08/29/2015 9:23:00 AM 134 mmHg 76 mmHg [...] Reviewed 12/13/2011 12:00 AM Kenalog per 10Mg Im-Nd#[address]-58(Man) Reviewed 12/23/2011 12:00 AM DRAIN/INJ JOINT/BURSA W/O US Reviewed 12/23/2011 12:00 AM Kenalog 40 Mg Im-Nd#0140-2357-87 Reviewed 05/25/2012 12:00 AM INJ TRIGGER POINT 1/2 MUSCL Reviewed 05/25/2012 12:00 AM Kenalog, Per 10 Mg [facility]#9784-0333-03 Reviewed 06/14/2012 12:00 AM DRAIN/INJ JOINT/BURSA W/O US Reviewed 06/14/2012 12:00 AM Kenalog, Per 10 Mg [facility]#4813-6247-35 Reviewed 07/11/2012 12:00 AM THER/PROPH/DIAG INJ SC/IM Reviewed 07/11/2012 12:00 AM Decadron 1 mg [facility]#[id number] (Manuel) Reviewed 07/11/2012 12:00 AM Depo-Medrol 80 mg [facility]#[id number]-Uwgljtmp Reviewed 08/21/2012 12:00 AM ASSAY CARBOXYHB QUANT Reviewed 09/18/2012 12:00 AM DRAIN/INJ JOINT/BURSA W/O US Reviewed 09/18/2012 12:00 AM Kenalog, Per [address] [facility]#2027-3176-34 Reviewed 10/13/2012 12:00 AM COMPREHEN METABOLIC PANEL Reviewed 10/13/2012 12:00 AM LIPID PANEL Reviewed 10/13/2012 12:00 AM GLYCOSYLATED HEMOGLOBIN TEST Reviewed 10/13/2012 12:00 AM MICROALBUMIN SEMIQUANT Reviewed 04/15/2010 12:00 AM MAMMOGRAM SCREENING Reviewed 12/06/2012 12:00 AM DRAIN/INJ JOINT/BURSA W/O US Reviewed 12/06/2012 12:00 AM Kenalog, Per [address] [facility]#9598-1982-19 Reviewed 12/22/2012 12:00 AM TOTAL CORTISOL Reviewed 04/26/2013 12:00 AM DRAIN/INJ JOINT/BURSA W/O US Reviewed 04/26/2013 12:00 AM Kenalog, Per 10 Mg [facility]#1601-3159-78 Reviewed 05/10/2013 12:00 AM DRAIN/INJ JOINT/BURSA W/O US Reviewed 05/10/2013 12:00 AM Kenalog, Per 10 Mg [facility]#1577-4453-02 Reviewed 05/10/2013 12:00 AM DRAIN/INJ JOINT/BURSA W/O US Reviewed 05/10/2013 12:00 AM Kenalog, Per [address] [facility]#7696-4594-56 Reviewed 05/28/2013 12:00 AM MAMMOGRAM SCREENING Reviewed [...] Per [address] [facility]#0454-2947-18 Reviewed 04/05/2014 12:00 AM COMPLETE CBC W/AUTO [...] BILI 0.90 mg/dLCALCIUM 9.50 mg/dLeGFR >60 mL/min/1.73 [id number] 18.0 U/L 01/02/2014 10:02 AM GLUCOSE 134.0 [...] in joint; Knee Feb 2011 4:20PM Fibromyalgia Dec 06 2011 4:20PM [...] 3:20PM Diabetes Mellitus, Type II Feb 13 2015 12:09PM Dysuria Dec 13 2014 12:09PM Gastroesophageal [...] 1:11PM Ganglion cyst Aug 29 2015 9:25AM Payers Insurance Name Company Name Plan Name Plan Number Policy Number Policy Group Number Start Date [employer] [place] [id number] Wednesday, 2009 [employer] [place] [id number] Saturday, 2009 History of Encounters Visit Date Visit Type Provider 08/29/2015 Office visit Brannon Jackson DO 08/20/2015 [...] Jackson DO 08/27/2013 Office visit Regina Mcnally GROUND [employer]RE[employer] RAILWAY 08/17/2013 Office visit Ray Tripathi [employer] RAILWAY 05/21/2013 Office visit Brannon Jackson DO 05/10/2013 Office visit Anirudh Conway MD 04/26/2013 Office visit Anirudh Conway MD 12/22/2012 Office visit Brannon Jackson DO 12/14/2012 [facility] Sandra Ca MD 12/12/2012 Office visit Brannon Jackson DO 12/12/2012 [facility] Sandra Ca MD 12/06/2012 Office visit Anirudh Conway MD 11/24/2012 Office visit Regina Mcnally [employer] [address] RAILWAY 10/12/2012 [facility] Anirudh Conway MD 10/10/2012 Office visit Brannon Jackson DO 09/18/2012 Office visit Anirudh Conway MD 09/01/2012 Office visit Brannon Jackson DO 08/21/2012 Office visit Brannon Jackson DO 08/01/2012 Office visit Brannon Jackson DO 07/11/2012 Office visit Regina Mcnally [employer] RAILWAY 06/14/2012 Office visit Anirudh Conway MD 05/25/2012 [...] Jackson DO 08/18/2010 Office visit Regina Mcnally [employer] RAILWAY 02/03/2010 Office visit Brannon Jackson DO 12/02/2009 Office visit Brannon Jackson DO 06/27/2009 Office visit Brannon Jackson DO
--- OUTSIDE RECORDS SUMMARY | 2018-10-25 12:52 | XMS REPORT ---
Author Author Brannon Jackson [facility] Address [address] [place], [place] [id number] Care Team Providers Care Mail Carrier Name Role Phone Brannon Jackson PCP Unavailable [...] 3 mo supply for mail order through [employer] amitriptyline oral tablet 10 mg 08/29/2014 11/22/2015 [...] by oral route daily for 30 days [place] Thyroid oral tablet 120 mg 12/14/2012 12/09/2013 [...] BILI 0.90 mg/dLCALCIUM 9.50 mg/dLeGFR >60 mL/min/1.73 [id number] 18.0 U/L 01/02/2014 10:02 AM GLUCOSE 134.0 [...] Policy Group Number Start Date [employer] [facility] [id number] Wednesday, 2009 [employer] [facility] [id number] Saturday, 2009 History of Encounters Visit Date Visit Type Provider 03/10/2015 Office visit Cass BRAY 02/25/2015 Office visit Cass BRAY 02/05/2015 Nurse visit Cass BRAY 12/17/2014 Office visit Brannon Jackson DO 12/17/2014 Hospital Dinesh Zhu MD 12/12/2014 Office visit Cass BRAY 10/29/2014 Office visit Cass BRAY 10/02/2014 Office visit Cass MMonse Arellano STEREOPTICIAN 09/20/2014 Office visit Brannon Manuel DO 09/05/2014 Office visit Cass M. Adan STEREOPTICIAN 07/29/2014 Office visit Cass M. Adan STEREOPTICIAN 07/18/2014 Office visit Brannon Manuel DO 07/03/2014 Office visit Rob Ruiz ICE CREAM MACHINE OPERATOR 06/11/2014 Office visit Cass MMonse Arellano STEREOPTICIAN 04/29/2014 Office visit Brannon Manuel DO 04/29/2014 Office visit Cass Tonya Adan STEREOPTICIAN 04/05/2014 Office visit Harjinder Paiz PA-C 02/25/2014 Office visit Cassrosamaria Arelalno STEREOPTICIAN 01/02/2014 Office visit Cass DevinMonse Arellano STEREOPTICIAN 12/18/2013 Office visit Cass Arellano STEREOPTICIAN 09/13/2013 Office visit Brannon Jackson DO 08/27/2013 Office visit Regina Mcnally ICE CREAM MACHINE OPERATOR 08/17/2013 Office visit Ray Tripathi APRN 05/21/2013 Office visit Brannon Jackson DO 05/10/2013 Office visit Anirudh Conway MD 04/26/2013 Office visit Anirudh Conway MD 12/22/2012 Office visit Brannon Jackson DO 12/14/2012 [facility] Sandra Ca MD 12/12/2012 Office visit Brannon Jackson DO 12/12/2012 [facility] Sandra Ca MD 12/06/2012 Office visit Anirudh Conway MD 11/24/2012 Office visit Regina Mcnally ICE CREAM MACHINE OPERATOR 10/12/2012 [facility] Anirudh Conway MD 10/10/2012 Office visit Brannon Jackson DO 09/18/2012 Office visit Anirudh Conway MD 09/01/2012 Office visit Brannon Jackson DO 08/21/2012 Office visit Brannon Jackson DO 08/01/2012 Office visit Brannon Jackson DO 07/11/2012 Office visit Regina Mcnally ICE CREAM MACHINE OPERATOR 06/14/2012 Office visit Anirudh Conway MD 05/25/2012 Office visit Anirudh Conway MD 05/04/2012 Office visit Brannon Jackson DO 12/23/2011 Office visit Anirudh Conway MD 12/16/2011 Office visit Brannon Jackson DO 12/06/2011 Office visit Anirudh Conway MD 11/11/2011 Office visit Brannon Jackson DO 10/28/2011 Office visit Brannon Jackson DO 10/22/2011 Hospital Valery Cerna MD 10/21/2011 [facility] Valery Cerna MD 10/19/2011 Office visit Brannon Jackson DO 10/19/2011 [facility] Anderson Dawkins MD 10/07/2011 Office visit Brannon Jackson DO 04/27/2011 Office visit Brannon Jackson DO 04/16/2011 Office visit Brannon Jackson DO 12/18/2010 Office visit Brannon Jcakson DO 11/17/2010 Office visit Brannon Jackson DO 10/08/2010 Office visit Brannon Jackson DO 08/18/2010 Office visit Regina Mcnally APRN 02/03/2010 Office visit Brannon Jackson DO 12/02/2009 Office visit Brannon Jackson DO 06/27/2009 Office visit Brannon Jackson DO
--- OUTSIDE RECORDS SUMMARY | 2018-10-25 12:57 | XMS REPORT ---
Author Author Karyna Gilbert [facility] Address [address] [place], [place] [address] Care Team Providers Care Flight Controls Engineer Name Role Phone Karyna Gilbert PCP Unavailable [...] 30 days permethrin 5 % topical cream 06/29/2017 apply [...] 2 times per day for 7 days [place] Thyroid 120 mg oral tablet 12/14/2012 12/09/2013 [...] Reviewed 12/13/2011 12:00 AM Kenalog per 10Mg Im-[facility]#[address]-38(Man) Reviewed 12/23/2011 12:00 AM DRAIN/INJ JOINT/BURSA W/O US Reviewed 12/23/2011 12:00 AM Kenalog 40 Mg Im-[facility]#4107-3895-67 Reviewed 11/19/2016 12:00 AM X-RAY EXAM OF HAND Reviewed 01/19/2017 12:00 AM COMPLETE CBC W/AUTO DIFF WBC Reviewed 01/19/2017 12:00 AM COMPREHEN METABOLIC PANEL Reviewed 01/19/2017 12:00 AM GLYCOSYLATED HEMOGLOBIN TEST Reviewed 05/25/2012 12:00 AM INJ TRIGGER POINT 1/2 MUSCL Reviewed 05/25/2012 12:00 AM Kenalog, Per 10 Mg [facility]#7214-7233-10 Reviewed 06/14/2012 12:00 AM DRAIN/INJ JOINT/BURSA W/O US Reviewed 06/14/2012 12:00 AM Kenalog, Per 10 Mg [place]#5002-2098-27 Reviewed 05/09/2017 12:00 AM MAMMOGRAPHY SCREENING, DIGITAL Reviewed 07/11/2012 12:00 AM THER/PROPH/DIAG INJ SC/IM Reviewed 07/11/2012 12:00 AM Decadron 1 mg [facility]#[id number] (Manuel) Reviewed 07/11/2012 12:00 AM Depo-Medrol 80 mg [facility]#[id number]-Cmqdsjgc Reviewed 08/21/2012 12:00 AM ASSAY CARBOXYHB QUANT Reviewed 09/18/2012 12:00 AM DRAIN/INJ JOINT/BURSA W/O US Reviewed 09/18/2012 12:00 AM Kenalog, Per 10 Mg [facility]#6696-4819-78 Reviewed 10/13/2012 12:00 AM COMPREHEN METABOLIC PANEL Reviewed 10/13/2012 12:00 AM LIPID PANEL Reviewed 10/13/2012 12:00 AM GLYCOSYLATED HEMOGLOBIN TEST Reviewed 10/13/2012 12:00 AM MICROALBUMIN SEMIQUANT Reviewed 04/15/2010 12:00 AM MAMMOGRAM SCREENING Reviewed 12/06/2012 12:00 AM DRAIN/INJ JOINT/BURSA W/O US Reviewed 12/06/2012 12:00 AM Kenalog, Per 10 Mg [facility]#0545-9448-29 Reviewed 12/22/2012 12:00 AM TOTAL CORTISOL Reviewed 04/26/2013 12:00 AM DRAIN/INJ JOINT/BURSA W/O US Reviewed 04/26/2013 12:00 AM Kenalog, Per 10 Mg [facility]#1747-1879-73 Reviewed 05/10/2013 12:00 AM DRAIN/INJ JOINT/BURSA W/O US Reviewed 05/10/2013 12:00 AM Kenalog, Per 10 Mg [facility]#1821-4139-68 Reviewed 05/10/2013 12:00 AM DRAIN/INJ JOINT/BURSA W/O US Reviewed 05/10/2013 12:00 AM Kenalog, Per 10 Mg [facility]#8336-0770-44 Reviewed 05/28/2013 12:00 AM MAMMOGRAM SCREENING Reviewed [...] Per 10 Mg [facility]#9380-6493-01 Reviewed 04/05/2014 12:00 AM COMPLETE CBC W/AUTO [...] Number Policy Group Number Start Date [facility] [id number] Saturday, 2015 [employer] [place] [id number] Saturday, 2009 [employer] [place] [id number] Wednesday, 2009 History of Encounters Visit Date Visit Type Provider 06/29/2017 Office visit Karyna Gilbert GRAVEL INSPECTOR 06/18/2017 Office visit Karyna Gilbert GRAVEL INSPECTOR 05/09/2017 Office visit Brannon Jackson DO 03/08/2017 Office visit Brannon Jackson DO 01/25/2017 Office visit Brannon Jackson DO 01/19/2017 Office visit Regina Mcnally GRAVEL INSPECTOR 01/04/2017 Procedures Reagan Lehman DO 12/24/2016 Office visit Brannon Jackson DO 12/23/2016 Surgery Reagan Lehman DO 12/14/2016 Office visit Reagan Lehman DO 11/25/2016 Office visit Brannon Jackson DO 11/19/2016 Office visit Sandra Milton GRAVEL INSPECTOR 11/02/2016 Office visit Lakia Reina GRAVEL INSPECTOR 09/09/2016 Office visit Brannon Jackson DO 05/18/2016 [...] Manuel DO 08/27/2013 Office visit Regina Mcnally GRAVEL INSPECTOR 08/17/2013 Office visit Ray Tripathi APRN 05/21/2013 Office visit Brannon Jackson DO 05/10/2013 Office visit Anirudh Conway MD 04/26/2013 Office visit Anirudh Conway MD 12/22/2012 Office visit Brannon Manuel DO 12/14/2012 [facility] Sandra Ca MD 12/12/2012 Office visit Brannon Jackson DO 12/12/2012 [facility] Sandra Ca MD 12/06/2012 Office visit Anirudh Conway MD 11/24/2012 Office visit Regina Mcnally GRAVEL INSPECTOR 10/12/2012 [facility] Anirudh Conway MD 10/10/2012 Office visit Brannon Jackson DO 09/18/2012 Office visit Anirudh Conway MD 09/01/2012 Office visit Brannon Jackson DO 08/21/2012 Office visit Brannon Jackson DO 08/01/2012 Office visit Brannon Jackson DO 07/11/2012 Office visit Regina Mcnally GRAVEL INSPECTOR 06/14/2012 Office visit Anirudh Conway MD 05/25/2012 [...] 10/19/2011 Office visit Brannon Manuel DO 10/19/2011 [facility] Anderson Dawkins MD 10/07/2011 Office visit Brannon Manuel DO 04/27/2011 Office visit Brannon Manuel DO 04/16/2011 Office visit Brannon Jackson DO 12/18/2010 Office visit Brannon Jackson DO 11/17/2010 Office visit Brannon Jackson DO 10/08/2010 Office visit Brannon Jackson DO 08/18/2010 Office visit Regina Mcnally GRAVEL INSPECTOR 02/03/2010 Office visit Brannon Jackson DO 12/02/2009 Office visit Brannon Jackson DO 06/27/2009 Office visit Brannon Jackson DO
--- OUTSIDE RECORDS SUMMARY | 2018-10-25 13:06 | XMS REPORT ---
Author Author Brannon Jackson [facility] Address [address] [place], [place] [address] Care Team Providers Care Wheel Loader Operator Name Role Phone Brannon Jackson PCP [...] 3 mo supply for mail order through [facility] amitriptyline oral tablet 10 mg 08/29/2014 11/22/2015 [...] by oral route daily for 30 days [place] Thyroid oral tablet 120 mg 12/14/2012 12/09/2013 [...] BILI 0.90 mg/dLCALCIUM 9.50 mg/dLeGFR >60 mL/min/1.73 [id number] 18.0 U/L 01/02/2014 10:02 AM GLUCOSE 134.0 [...] Policy Group Number Start Date [employer] [facility] [id number] Wednesday, 2009 [employer] [facility] [id number] Saturday, 2009 History of Encounters Visit Date Visit Type Provider 03/10/2015 Office visit Cass BRAY 02/25/2015 Office visit Cass BRAY 02/05/2015 Nurse visit Cass BRAY 12/17/2014 Office visit Brannon Jackson DO 12/17/2014 Hospital Dinesh Zhu MD 12/12/2014 Office visit Cass BRAY 10/29/2014 Office visit Cass BRAY 10/02/2014 Office visit Cass MMonse Arellano MORNING BABYSITTER 09/20/2014 Office visit Brannon Manuel DO 09/05/2014 Office visit Cass M. Adan MORNING BABYSITTER 07/29/2014 Office visit Cass M. Adan MORNING BABYSITTER 07/18/2014 Office visit Brannon Manuel DO 07/03/2014 Office visit Rob Ruiz CORE INSPECTOR 06/11/2014 Office visit Cass MMonse Arellano MORNING BABYSITTER 04/29/2014 Office visit Brannon Manuel DO 04/29/2014 Office visit Cass Tonya Adan MORNING BABYSITTER 04/05/2014 Office visit Harjinder Paiz PA-C 02/25/2014 Office visit Cassrosamaria Arellano MORNING BABYSITTER 01/02/2014 Office visit Cass DevinMonse Arellano MORNING BABYSITTER 12/18/2013 Office visit Cass Arellano MORNING BABYSITTER 09/13/2013 Office visit Brannon Jackson DO 08/27/2013 Office visit Regina Mcnally CORE INSPECTOR 08/17/2013 Office visit Ray Tripathi APRN [...] Conway MD 11/24/2012 Office visit Regina Mcnally CORE INSPECTOR 10/12/2012 [facility] Anirudh Conway MD 10/10/2012 Office visit Brannon Jackson DO 09/18/2012 Office visit Anirudh Conway MD 09/01/2012 Office visit Brannon Jackson DO 08/21/2012 Office visit Brannon Jackson DO 08/01/2012 Office visit Brannon Jackson DO 07/11/2012 Office visit Regina Mcnally CORE INSPECTOR 06/14/2012 Office visit Anirudh Conway MD 05/25/2012 Office visit Anirudh Conway MD 05/04/2012 Office visit Brannon Jackson DO 12/23/2011 Office visit Anirudh Conway MD 12/16/2011 Office visit Brannon Jackson DO 12/06/2011 Office visit Anirudh Conway MD 11/11/2011 Office visit Brannon Jackson DO 10/28/2011 Office visit Brannon Jackson DO 10/22/2011 Hospital Valery Cerna MD 10/21/2011 [facility] Valery Cerna MD 10/19/2011 Office visit Brannon Jackson DO 10/19/2011 [facility] [...]
--- OUTSIDE RECORDS SUMMARY | 2018-10-25 13:10 | XMS REPORT ---
Author Author Regina Mcnally Organization [facility] Address [address] [place], [place] [address] Care Team Providers Care Automotive Repair Technician Name Role Phone Regina Mcnally PCP Unavailable [...] 2 times per day for 7 days [place] Thyroid 120 mg oral tablet 12/14/2012 12/09/2013 [...] 12/13/2011 12:00 AM Kenalog per 10Mg Im-[facility]#[address]-93(Man) Reviewed 12/23/2011 12:00 AM DRAIN/INJ JOINT/BURSA W/O US Reviewed 12/23/2011 12:00 AM Kenalog 40 Mg Im-[facility]#7771-4954-92 Reviewed 11/19/2016 12:00 AM X-RAY EXAM OF HAND Reviewed 01/19/2017 12:00 AM COMPLETE CBC W/AUTO DIFF WBC Returned 01/19/2017 12:00 AM COMPREHEN METABOLIC PANEL Returned 01/19/2017 12:00 AM GLYCOSYLATED HEMOGLOBIN TEST Returned 05/25/2012 12:00 AM INJ TRIGGER POINT 1/2 MUSCL Reviewed 05/25/2012 12:00 AM Kenalog, Per 10 Mg [facility]#1925-5852-03 Reviewed 06/14/2012 12:00 AM DRAIN/INJ JOINT/BURSA W/O US Reviewed 06/14/2012 12:00 AM Kenalog, Per 10 Mg [facility]#8351-6723-14 Reviewed 07/11/2012 12:00 AM THER/PROPH/DIAG INJ SC/IM Reviewed 07/11/2012 12:00 AM Decadron 1 mg [facility]#[id number] (Manuel) Reviewed 07/11/2012 12:00 AM Depo-Medrol 80 mg [facility]#[id number]-Enypgsrf Reviewed 08/21/2012 12:00 AM ASSAY CARBOXYHB QUANT Reviewed 09/18/2012 12:00 AM DRAIN/INJ JOINT/BURSA W/O US Reviewed 09/18/2012 12:00 AM Kenalog, Per 10 Mg [facility]#4480-3520-83 Reviewed 10/13/2012 12:00 AM COMPREHEN METABOLIC PANEL Reviewed 10/13/2012 12:00 AM LIPID PANEL Reviewed 10/13/2012 12:00 AM GLYCOSYLATED HEMOGLOBIN TEST Reviewed 10/13/2012 12:00 AM MICROALBUMIN SEMIQUANT Reviewed 04/15/2010 12:00 AM MAMMOGRAM SCREENING Reviewed 12/06/2012 12:00 AM DRAIN/INJ JOINT/BURSA W/O US Reviewed 12/06/2012 12:00 AM Kenalog, Per 10 Mg [facility]#7199-8537-87 Reviewed 12/22/2012 12:00 AM TOTAL CORTISOL Reviewed 04/26/2013 12:00 AM DRAIN/INJ JOINT/BURSA W/O US Reviewed 04/26/2013 12:00 AM Kenalog, Per 10 Mg [facility]#5413-3249-50 Reviewed 05/10/2013 12:00 AM DRAIN/INJ JOINT/BURSA W/O US Reviewed 05/10/2013 12:00 AM Kenalog, Per 10 Mg [facility]#0636-4478-06 Reviewed 05/10/2013 12:00 AM DRAIN/INJ JOINT/BURSA W/O US Reviewed 05/10/2013 12:00 AM Kenalog, Per 10 Mg [facility]#9720-3966-44 Reviewed 05/28/2013 12:00 AM MAMMOGRAM SCREENING Reviewed [...] 03/05/2014 12:00 AM Kenalog, Per 10 Mg [facility]#4002-6983-91 Reviewed 04/05/2014 12:00 AM COMPLETE CBC W/AUTO [...] 9:40AM Other constipation Jan 19 2017 9:40AM Payers Insurance Name Company Name Plan Name Plan Number Policy Number Policy Group Number Start Date [facility] [id number] Saturday, 2015 [employer] [facility] [id number] Saturday, 2009 [employer] [facility] [id number] Wednesday, 2009 History of Encounters Visit Date Visit Type Provider 01/19/2017 Office visit Regina Mcnally ADMISSIONS CLINICIAN 01/04/2017 Procedures Reagan Lehman DO 12/24/2016 Office visit Brannon Jackson DO 12/23/2016 Surgery Reagan Lehman DO 12/14/2016 Office visit Reagan Lehman DO 11/25/2016 Office visit Brannon Jackson DO 11/19/2016 Office visit Sandra Milton ADMISSIONS CLINICIAN 11/02/2016 Office visit Lakia Reina ADMISSIONS CLINICIAN 09/09/2016 Office visit Brannon Jackson DO 05/18/2016 Office visit Brannon Jackson DO 05/05/2016 Office visit 05/05/2016 Office visit Brannon Jackson DO 02/05/2016 Office visit Brannon Jackson DO 12/09/2015 Voided Cass BRAY 10/13/2015 Office visit Brannon Jackson DO 09/18/2015 Nurse visit Cass BRAY 09/03/2015 Procedures Reagan Thomaslois DO 08/29/2015 Office visit Brannon Simpsonte DO [...] Office visit Cass BRAY 09/20/2014 Office visit Branonn Manuel DO 09/05/2014 Office visit Cass BRAY [...] Jackson DO 08/27/2013 Office visit Regina Mcnally ADMISSIONS CLINICIAN 08/17/2013 Office visit Ray Tripathi ADMISSIONS CLINICIAN 05/21/2013 Office visit Brannon Jackson DO 05/10/2013 Office visit Anirudh Conway MD 04/26/2013 Office visit Anirudh Conway MD 12/22/2012 Office visit Brannon Manuel DO 12/14/2012 [facility] Sandra Ca MD 12/12/2012 Office visit Brannon Jackson DO 12/12/2012 [facility] Sandra Ca MD 12/06/2012 Office visit Anirudh Conway MD 11/24/2012 Office visit Regina Mcnally ADMISSIONS CLINICIAN 10/12/2012 [facility] Anirudh Conway MD 10/10/2012 Office visit Brannon Jackson DO 09/18/2012 Office visit Anirudh Conway MD 09/01/2012 Office visit Barnnon Jackson DO 08/21/2012 Office visit Brannon Jackson DO 08/01/2012 Office visit Brannon Jackson DO 07/11/2012 Office visit Regina Mcnally ADMISSIONS CLINICIAN 06/14/2012 Office visit Anirudh Conway MD 05/25/2012 Office visit Anirudh Conway MD 05/04/2012 Office visit Brannon Jackson DO 12/23/2011 Office visit Anirudh Conway MD 12/16/2011 Office visit Brannon Jackson DO 12/06/2011 Office visit Anirudh Conway MD 11/11/2011 Office visit Brannon Manuel DO 10/28/2011 Office visit Brannon Jackson DO 10/22/2011 [facility] Valery Cerna MD 10/21/2011 [facility] Valery Cerna MD 10/19/2011 Office visit Brannon Jackson DO 10/19/2011 [facility] Anderson Dawkins MD 10/07/2011 Office visit Brannon Manuel DO 04/27/2011 Office visit Brannon Manuel DO 04/16/2011 Office visit Brannon Jackson DO 12/18/2010 Office visit Brannon Jackson DO 11/17/2010 Office visit Brannon Jackson DO 10/08/2010 Office visit Brannon Jackson DO 08/18/2010 Office visit Regina Mcnally ADMISSIONS CLINICIAN 02/03/2010 Office visit Brannon Jackson DO 12/02/2009 Office visit Brannon Jackson DO 06/27/2009 Office visit Brannon Jackson DO
[2018-10-25 13:15] VITALS: BP 127/83
--- OUTSIDE RECORDS SUMMARY | 2018-10-25 13:16 | XMS REPORT ---
Author Author Brannon Jackson [facility] Address [address] [place], [place] [phone] Care Team Providers Care Pre Press Proofer Name Role Phone Brannon Jackson PCP Unavailable [...] times per day for 7 days [place] Thyroid 120 mg oral tablet 12/14/2012 12/09/2013 [...] Kenalog per 10Mg [facility]#[address]-17(Man) Reviewed 12/23/2011 12:00 AM DRAIN/INJ JOINT/BURSA W/O US Reviewed 12/23/2011 12:00 AM Kenalog 40 Mg [facility]#1845-5044-86 Reviewed 05/25/2012 12:00 AM INJ TRIGGER POINT 1/2 MUSCL Reviewed 05/25/2012 12:00 AM Kenalog, Per 10 Mg [facility]#3549-2835-72 Reviewed 06/14/2012 12:00 AM DRAIN/INJ JOINT/BURSA W/O US Reviewed 06/14/2012 12:00 AM Kenalog, Per 10 Mg [facility]#9195-3846-13 Reviewed 07/11/2012 12:00 AM THER/PROPH/DIAG INJ SC/IM Reviewed 07/11/2012 12:00 AM Decadron 1 mg [facility]#[id number] (Manuel) Reviewed 07/11/2012 12:00 AM Depo-Medrol 80 mg [facility]#[id number]-Lwozbxgm Reviewed 08/21/2012 12:00 AM ASSAY CARBOXYHB QUANT Reviewed 09/18/2012 12:00 AM DRAIN/INJ JOINT/BURSA W/O US Reviewed 09/18/2012 12:00 AM Kenalog, Per 10 Mg [facility]#6976-1672-35 Reviewed 10/13/2012 12:00 AM COMPREHEN METABOLIC PANEL Reviewed 10/13/2012 12:00 AM LIPID PANEL Reviewed 10/13/2012 12:00 AM GLYCOSYLATED HEMOGLOBIN TEST Reviewed 10/13/2012 12:00 AM MICROALBUMIN SEMIQUANT Reviewed 04/15/2010 12:00 AM MAMMOGRAM SCREENING Reviewed 12/06/2012 12:00 AM DRAIN/INJ JOINT/BURSA W/O US Reviewed 12/06/2012 12:00 AM Kenalog, Per 10 Mg [facility]#8802-6839-99 Reviewed 12/22/2012 12:00 AM TOTAL CORTISOL Reviewed 04/26/2013 12:00 AM DRAIN/INJ JOINT/BURSA W/O US Reviewed 04/26/2013 12:00 AM Kenalog, Per 10 Mg [facility]#0870-5422-24 Reviewed 05/10/2013 12:00 AM DRAIN/INJ JOINT/BURSA W/O US Reviewed 05/10/2013 12:00 AM Kenalog, Per 10 Mg [facility]#0461-4860-26 Reviewed 05/10/2013 12:00 AM DRAIN/INJ JOINT/BURSA W/O US Reviewed 05/10/2013 12:00 AM Kenalog, Per 10 Mg [facility]#7161-2097-44 Reviewed 05/28/2013 12:00 AM MAMMOGRAM SCREENING Reviewed [...] AM Kenalog, Per 10 Mg [facility]#4246-3514-23 Reviewed 04/05/2014 12:00 AM COMPLETE CBC W/AUTO [...] Callus of foot Sep 09 2016 3:23PM Payers Insurance Name Company Name Plan Name Plan Number Policy Number Policy Group Number Start Date [facility] Gpa [id number] Saturday, 2015 BCBS [employer] [facility] [id number] Saturday, 2009 [employer] [facility] [id number] Wednesday, 2009 History of Encounters Visit Date [...] Jackson DO 09/05/2014 Office visit Cass Arellano SUPERVISOR FUR DRESSING 07/29/2014 Office visit Cass M. Adan SUPERVISOR FUR DRESSING 07/18/2014 Office visit Brannon Manuel DO 07/03/2014 Office visit Rob Joseph CREASING MACHINE OPERATOR 06/11/2014 Office visit Cass Arellano SUPERVISOR FUR DRESSING 04/29/2014 Office visit Cass Arellano SUPERVISOR FUR DRESSING 04/29/2014 Office visit Brannon Manuel DO 04/05/2014 Office visit Harjinder Paiz PA-C 02/25/2014 Office visit Cass Arellano SUPERVISOR FUR DRESSING 01/02/2014 Office visit Cass Arellano SUPERVISOR FUR DRESSING 12/18/2013 Office visit Cass M. Adan SUPERVISOR FUR DRESSING 09/13/2013 Office visit Brannon Jackson DO 08/27/2013 Office visit Regina Mcnally CREASING MACHINE OPERATOR 08/17/2013 Office visit Ray Tripathi CREASING MACHINE OPERATOR 05/21/2013 Office visit Brannon Jackson DO 05/10/2013 Office visit Anirudh Conway MD 04/26/2013 Office visit Anirudh Conway MD 12/22/2012 Office visit Brannon Jackson DO 12/14/2012 [facility] Sandra Ca MD 12/12/2012 Office visit Brannon Jackson DO 12/12/2012 [facility] Sandra Ca MD 12/06/2012 Office visit Anirudh Conway MD 11/24/2012 Office visit Regina Mcnally CREASING MACHINE OPERATOR 10/12/2012 [facility] Anirudh Conway MD 10/10/2012 Office visit Brannon Jackson DO 09/18/2012 Office visit Anirudh Conway MD 09/01/2012 Office visit Brannon Jackson DO 08/21/2012 Office visit Brannon Jackson DO 08/01/2012 Office visit Brannon Jackson DO 07/11/2012 Office visit Regina Mcnally CREASING MACHINE OPERATOR 06/14/2012 Office visit Anirudh Conway [...]
--- OUTSIDE RECORDS SUMMARY | 2018-10-25 13:23 | XMS REPORT ---
Author Author Brannon Jackson [facility] Address [address] [place] [id number] Care Team Providers Care Char Filter Operator Helper Name Role Phone Brannon Jackson [...] 2 times per day for 7 days [place] Thyroid 120 mg oral tablet 12/14/2012 12/09/2013 [...] Kenalog per 10Mg [facility]#[address]-61(Man) Reviewed 12/23/2011 12:00 AM DRAIN/INJ JOINT/BURSA W/O US Reviewed 12/23/2011 12:00 AM Kenalog 40 Mg [facility]#7905-3655-50 Reviewed 05/25/2012 12:00 AM INJ TRIGGER POINT 1/2 MUSCL Reviewed 05/25/2012 12:00 AM Kenalog, Per 10 Mg [facility]#5246-2637-51 Reviewed 06/14/2012 12:00 AM DRAIN/INJ JOINT/BURSA W/O US Reviewed 06/14/2012 12:00 AM Kenalog, Per 10 Mg [facility]#1412-1021-41 Reviewed 07/11/2012 12:00 AM THER/PROPH/DIAG INJ SC/IM Reviewed 07/11/2012 12:00 AM Decadron 1 mg [facility]#[id number] (Manuel) Reviewed 07/11/2012 12:00 AM Depo-Medrol 80 mg [facility]#[id number]-Egtaowqk Reviewed 08/21/2012 12:00 AM ASSAY CARBOXYHB QUANT Reviewed 09/18/2012 12:00 AM DRAIN/INJ JOINT/BURSA W/O US Reviewed 09/18/2012 12:00 AM Kenalog, Per 10 Mg [facility]#7383-2644-15 Reviewed 10/13/2012 12:00 AM COMPREHEN METABOLIC PANEL Reviewed 10/13/2012 12:00 AM LIPID PANEL Reviewed 10/13/2012 12:00 AM GLYCOSYLATED HEMOGLOBIN TEST Reviewed 10/13/2012 12:00 AM MICROALBUMIN SEMIQUANT Reviewed 04/15/2010 12:00 AM MAMMOGRAM SCREENING Reviewed 12/06/2012 12:00 AM DRAIN/INJ JOINT/BURSA W/O US Reviewed 12/06/2012 12:00 AM Kenalog, Per 10 Mg [facility]#7618-0539-36 Reviewed 12/22/2012 12:00 AM TOTAL CORTISOL Reviewed 04/26/2013 12:00 AM DRAIN/INJ JOINT/BURSA W/O US Reviewed 04/26/2013 12:00 AM Kenalog, Per 10 Mg [facility]#9202-3592-71 Reviewed 05/10/2013 12:00 AM DRAIN/INJ JOINT/BURSA W/O US Reviewed 05/10/2013 12:00 AM Kenalog, Per 10 Mg [facility]#0358-5514-37 Reviewed 05/10/2013 12:00 AM DRAIN/INJ JOINT/BURSA W/O US Reviewed 05/10/2013 12:00 AM Kenalog, Per 10 Mg [facility]#4570-9000-60 Reviewed 05/28/2013 12:00 AM MAMMOGRAM SCREENING Reviewed [...] Kenalog, Per 10 Mg [facility]#1075-4179-71 Reviewed 04/05/2014 12:00 AM COMPLETE CBC W/AUTO [...] BILI 0.90 mg/dLCALCIUM 9.50 mg/dLeGFR >60 mL/min/1.73 [id number] 18.0 U/L 01/02/2014 10:02 AM GLUCOSE 134.0 [...] Policy Group Number Start Date [employer] [facility] [id number] Wednesday, 2009 [employer]BS [employer] [facility] [id number] Saturday, 2009 History of Encounters Visit Date [...] Jackson DO 12/12/2014 Office visit Cass Arellano COTTON EXPERT 10/29/2014 Office visit Cass Arellano COTTON EXPERT 10/02/2014 Office visit Cass Arellano COTTON EXPERT 09/20/2014 Office visit Brannon Manuel DO 09/05/2014 Office visit Cass Arellano COTTON EXPERT 07/29/2014 Office visit Cass Arellano COTTON EXPERT 07/18/2014 Office visit Brannon Jackson DO 07/03/2014 Office visit Rob Ruiz NURSING EDUCATOR 06/11/2014 Office visit Cass Arellano COTTON EXPERT 04/29/2014 Office visit Cass Arellano COTTON EXPERT 04/29/2014 Office visit Brannon Jackson DO 04/05/2014 Office visit Harjinder Paiz PA-C 02/25/2014 Office visit Cass Arellano COTTON EXPERT 01/02/2014 Office visit Cass Arellano COTTON EXPERT 12/18/2013 Office visit Cass Arellano COTTON EXPERT 09/13/2013 Office visit Brnanon Jackson DO 08/27/2013 Office visit Regina Mcnally NURSING EDUCATOR 08/17/2013 Office visit Ray Tripathi NURSING EDUCATOR 05/21/2013 Office visit Brannon Jackson DO 05/10/2013 [...] Jackson DO 07/11/2012 Office visit Regina Mcnally NURSING EDUCATOR 06/14/2012 Office visit Anirudh Conway MD 05/25/2012 Office visit Anirudh Conway MD 05/04/2012 Office visit Brannno Jackson DO 12/23/2011 Office visit Anirudh Conway [...]
--- OUTSIDE RECORDS SUMMARY | 2018-10-25 13:30 | XMS REPORT ---
Author Reagan Lopez [facility] Address [address] [place], [place] [id number] Care Team Providers Care Turn Down Man Name Role Phone Reagan Lehman PCP Unavailable [...] 2 times per day for 7 days [place] Thyroid 120 mg oral tablet 12/14/2012 12/09/2013 [...] Reviewed 12/13/2011 12:00 AM Kenalog per 10Mg Im-Nd#[address]-72(Man) Reviewed 12/23/2011 12:00 AM DRAIN/INJ JOINT/BURSA W/O US Reviewed 12/23/2011 12:00 AM Kenalog 40 Mg Im-[facility]#9041-3005-22 Reviewed 11/19/2016 12:00 AM X-RAY EXAM OF HAND Reviewed 05/25/2012 12:00 AM INJ TRIGGER POINT 1/2 MUSCL Reviewed 05/25/2012 12:00 AM Kenalog, Per 10 Mg [facility]#2041-0041-87 Reviewed 06/14/2012 12:00 AM DRAIN/INJ JOINT/BURSA W/O US Reviewed 06/14/2012 12:00 AM Kenalog, Per 10 Mg NDC#4930-6522-26 Reviewed 07/11/2012 12:00 AM THER/PROPH/DIAG INJ SC/IM Reviewed 07/11/2012 12:00 AM Decadron 1 mg ND#[id number] (Manuel) Reviewed 07/11/2012 12:00 AM Depo-Medrol 80 mg ND#[id number]-Rfkikpbq Reviewed 08/21/2012 12:00 AM ASSAY CARBOXYHB QUANT Reviewed 09/18/2012 12:00 AM DRAIN/INJ JOINT/BURSA W/O US Reviewed 09/18/2012 12:00 AM Kenalog, Per 10 Mg ND#1639-6572-75 Reviewed 10/13/2012 12:00 AM COMPREHEN METABOLIC PANEL Reviewed 10/13/2012 12:00 AM LIPID PANEL Reviewed 10/13/2012 12:00 AM GLYCOSYLATED HEMOGLOBIN TEST Reviewed 10/13/2012 12:00 AM MICROALBUMIN SEMIQUANT Reviewed 04/15/2010 12:00 AM MAMMOGRAM SCREENING Reviewed 12/06/2012 12:00 AM DRAIN/INJ JOINT/BURSA W/O US Reviewed 12/06/2012 12:00 AM Kenalog, Per 10 Mg NDC#8529-6963-85 Reviewed 12/22/2012 12:00 AM TOTAL CORTISOL Reviewed 04/26/2013 12:00 AM DRAIN/INJ JOINT/BURSA W/O US Reviewed 04/26/2013 12:00 AM Kenalog, Per 10 Mg NDC#7645-3426-22 Reviewed 05/10/2013 12:00 AM DRAIN/INJ JOINT/BURSA W/O US Reviewed 05/10/2013 12:00 AM Kenalog, Per 10 Mg NDC#8008-3714-31 Reviewed 05/10/2013 12:00 AM DRAIN/INJ JOINT/BURSA W/O US Reviewed 05/10/2013 12:00 AM Kenalog, Per 10 Mg ND#7197-1345-22 Reviewed 05/28/2013 12:00 AM MAMMOGRAM SCREENING Reviewed [...] 03/05/2014 12:00 AM Kenalog, Per 10 Mg [facility]#1720-7034-28 Reviewed 04/05/2014 12:00 AM COMPLETE CBC W/AUTO [...] 18 2010 9:00AM Osteoarthritis,Shoulder b 2010 9:00AM Ganglion cyst 12/14/2016 Pain in [...] Right Feb 2014 3:20PM Osteoarthritis, Left Hip b 2014 [...] Policy Group Number Start Date [facility] Gpa [id number] Saturday, 2015 BCBS bs [facility] [id number] Saturday, 2009 [facility] [id number] Wednesday, 2009 History of Encounters Visit Date Visit Type Provider 12/14/2016 Office visit Reagan Fallon DO 11/25/2016 Office visit Brannon Jackson DO 11/19/2016 Office visit Sandra Milton FIGURE CLERK 11/02/2016 Office visit Lakia Reina FIGURE CLERK 09/09/2016 Office visit Brannon Jackson DO [...] Manuel DO 07/03/2014 Office visit Rob Ruiz FIGURE CLERK 06/11/2014 Office visit Cass Arellano CONSTRUCTION PROJECT COORDINATOR 04/29/2014 Office visit Cass Arellano CONSTRUCTION PROJECT COORDINATOR 04/29/2014 Office visit Brannon Manuel DO 04/05/2014 Office visit Harjinder Paiz PA-C 02/25/2014 Office visit Cass Arellano CONSTRUCTION PROJECT COORDINATOR 01/02/2014 Office visit Cass Arellano CONSTRUCTION PROJECT COORDINATOR 12/18/2013 Office visit Cass Arellano CONSTRUCTION PROJECT COORDINATOR 09/13/2013 Office visit Brannon Jackson DO 08/27/2013 Office visit Regina Mcnally FIGURE CLERK 08/17/2013 Office visit Ray Tripathi FIGURE CLERK 05/21/2013 Office visit Brannon Jackson DO 05/10/2013 Office visit Anirudh Conway MD 04/26/2013 Office visit Anirudh Conway MD 12/22/2012 Office visit Brannon Jackson DO 12/14/2012 [facility] Sandra Ca MD 12/12/2012 Office visit Brannon Jackson DO 12/12/2012 [facility] Sandra Ca MD 12/06/2012 Office visit Anirudh Conway MD 11/24/2012 Office visit Regian Mcnally APRN 10/12/2012 [facility] Anirudh Conway MD [...]
--- OUTSIDE RECORDS SUMMARY | 2018-10-25 13:33 | XMS REPORT ---
Author Author Brannon Jackson [facility] Address [address] [place] [id number] Care Team Providers Care Statue Carver Name Role Phone Brannon Jackson PCP Brannon [...] 2 times per day for 7 days [place] Thyroid 120 mg oral tablet 12/14/2012 12/09/2013 [...] drugs in past over 25 yrs ago [facility] application [employer] 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 in [...] 12/13/2011 12:00 AM Kenalog per 10Mg Im-[facility]#[address]-95(Man) Reviewed 12/23/2011 12:00 AM DRAIN/INJ JOINT/BURSA W/O US Reviewed 12/23/2011 12:00 AM Kenalog 40 Mg Im-[facility]#4562-7260-99 Reviewed 11/19/2016 12:00 AM X-RAY EXAM OF HAND Reviewed 01/19/2017 12:00 AM COMPLETE CBC W/AUTO DIFF WBC Reviewed 01/19/2017 12:00 AM COMPREHEN METABOLIC PANEL Reviewed 01/19/2017 12:00 AM GLYCOSYLATED HEMOGLOBIN TEST Reviewed 05/25/2012 12:00 AM INJ TRIGGER POINT 1/2 MUSCL Reviewed 05/25/2012 12:00 AM Kenalog, Per 10 Mg [facility]#4394-0175-60 Reviewed 06/14/2012 12:00 AM DRAIN/INJ JOINT/BURSA W/O US Reviewed 06/14/2012 12:00 AM Kenalog, Per 10 Mg [facility]#0371-4873-60 Reviewed 05/09/2017 12:00 AM MAMMOGRAPHY SCREENING, DIGITAL Reviewed 07/11/2012 12:00 AM THER/PROPH/DIAG INJ SC/IM Reviewed 07/11/2012 12:00 AM Decadron 1 mg [facility]#[id number] (Manuel) Reviewed 07/11/2012 12:00 AM Depo-Medrol 80 mg NDC#[id number]-Sxizmrrs Reviewed 08/21/2012 12:00 AM ASSAY CARBOXYHB QUANT Reviewed 09/01/2017 12:00 AM RADIOLOGIC EXAMINATION KNEE 1/2 VIEWS Reviewed 09/18/2012 12:00 AM DRAIN/INJ JOINT/BURSA W/O US Reviewed 09/18/2012 12:00 AM Kenalog, Per 10 Mg [facility]#7032-2577-22 Reviewed 10/25/2017 12:00 AM RADIOLOGIC EXAMINATION KNEE [...] Kenalog, Per 10 Mg [facility]#1963-1279-13 Reviewed 12/22/2012 12:00 AM TOTAL CORTISOL Reviewed 04/26/2013 12:00 AM DRAIN/INJ JOINT/BURSA W/O US Reviewed 04/26/2013 12:00 AM Kenalog, Per 10 Mg ND#2491-7112-28 Reviewed 05/10/2013 12:00 AM DRAIN/INJ JOINT/BURSA W/O US Reviewed 05/10/2013 12:00 AM Kenalog, Per 10 Mg ND#2390-8997-41 Reviewed 05/10/2013 12:00 AM DRAIN/INJ JOINT/BURSA W/O US Reviewed 05/10/2013 12:00 AM Kenalog, Per 10 Mg [facility]#8541-4008-34 Reviewed 05/28/2013 12:00 AM MAMMOGRAM SCREENING Reviewed [...] Kenalog, Per 10 Mg [facility]#9125-7435-94 Reviewed 04/05/2014 12:00 AM COMPLETE CBC W/AUTO [...] 4.08 HGB 12.20 g/dLHCT 36.80 %MCV 90.0 [facility] 29.90 pgMCHC 33.20 g/dLRDW SD 42 RDW [...] Policy Group Number Start Date [facility] [id number] Saturday, 2015 [employer] [place] [id number] Saturday, 2009 [employer] [place] [id number] Wednesday, 2009 History of Encounters Visit Date Visit Type Provider 12/02/2017 Office visit Brannon Jackson DO 11/11/2017 Office visit Brannon Jackson DO 11/09/2017 Office visit Harjinder Paiz PA-C 10/28/2017 Office visit Lakia Reina NEWSPAPER OR PERIODICAL EDITOR 10/25/2017 Office visit Regina Mcnally NEWSPAPER OR PERIODICAL EDITOR 10/05/2017 Office visit Regina Mcnally NEWSPAPER OR PERIODICAL EDITOR 09/01/2017 Office visit Brannon Jackson DO 06/29/2017 Office visit Karyna Gilbert NEWSPAPER OR PERIODICAL EDITOR 06/18/2017 Office visit Karyna Gilbert NEWSPAPER OR PERIODICAL EDITOR 05/09/2017 Office visit Brannon Jackson DO 03/08/2017 Office visit Brannon Jackson DO 01/25/2017 Office visit Brannon Jackson DO 01/19/2017 Office visit Regina Mcnally NEWSPAPER OR PERIODICAL EDITOR 01/04/2017 Procedures Reagan Lehman DO 12/24/2016 Office visit Brannon Jackson DO 12/23/2016 Surgery Reagan Fallon DO 12/14/2016 Office visit Reagan Lehman DO 11/25/2016 Office visit Brannon Jackson DO 11/19/2016 Office visit Sandra Milton NEWSPAPER OR PERIODICAL EDITOR 11/02/2016 Office visit Lakia Reina NEWSPAPER OR PERIODICAL EDITOR 09/09/2016 Office visit Brannon Jackson DO 05/18/2016 [...] DO 04/09/2015 Office visit Cass BRAY 04/01/2015 [facility] Dinesh Zhu MD 04/01/2015 Office visit Brannon Manuel DO 03/10/2015 Office visit Cass BRAY 02/25/2015 Office visit Cass BRAY 02/05/2015 Nurse visit Cass BRAY 12/17/2014 [facility] Dinesh Zhu MD 12/17/2014 Office visit Brannon [...] Jackson DO 07/11/2012 Office visit Regina Mcnally NEWSPAPER OR PERIODICAL EDITOR 06/14/2012 Office visit Anirudh Conway MD 05/25/2012 [...] Jackson DO 08/18/2010 Office visit Regina Mcnally NEWSPAPER OR PERIODICAL EDITOR 02/03/2010 Office visit Brannon Jackson DO 12/02/2009 Office visit Brannon Jackson DO 06/27/2009 Office visit Brannon iSmpsonte DO
--- OUTSIDE RECORDS SUMMARY | 2018-10-25 13:36 | XMS REPORT ---
Author Author Brannon Jackson [facility] Address [address] [place] [id number] Care Team Providers Care Carpenter Prototype Name Role Phone Brannon Jackson PCP Brannon Jackson PreferredProvider Allergies and Adverse Reactions Name Reaction Notes promethazine vomiting Zofran vomiting Plan of Treatment Planned Activity Comments Planned Date Planned Time Plan/Goal MRI pelvis and hip left wo contrast 08/01/2015 12:00 AM MRI THORACIC SPINE W/O CONTRAST 12/15/2016 12:00 AM MRI LUMBAR SPINE W/O CONTRAST 12/15/2016 12:00 AM CMP 01/03/2018 12:00 AM Lipid panel 01/03/2018 12:00 AM Hemoglobin A1c measurement 01/03/2018 12:00 AM VITAMIN B12 01/03/2018 12:00 AM Ganglion cyst right hand 12/14/2016 2:30 PM Medications Active Name Start Date Estimated Completion Date SIG Comments Multivitamin, Hair, Skin,and Nails one tablet daily cane miscellaneous device 09/01/2015 use as directed single point mckeon Janumet 50-1,000 mg oral tablet 02/21/2017 02/16/2018 [...] oral tablets,dose pack 11/09/2017 take as directed [employer] Verio miscellaneous strip 11/11/2017 Test glucose 4 [...] 2 times per day for 7 days [place] Thyroid 120 mg oral tablet 12/14/2012 12/09/2013 [...] Reviewed 12/13/2011 12:00 AM Kenalog per 10Mg Im-[facility]#[address]-65(Man) Reviewed 12/23/2011 12:00 AM DRAIN/INJ JOINT/BURSA W/O US Reviewed 12/23/2011 12:00 AM Kenalog 40 Mg Im-Ndc#1426-4243-63 Reviewed 11/19/2016 12:00 AM X-RAY EXAM OF HAND Reviewed 01/19/2017 12:00 AM COMPLETE CBC W/AUTO DIFF WBC Reviewed 01/19/2017 12:00 AM COMPREHEN METABOLIC PANEL Reviewed 01/19/2017 12:00 AM GLYCOSYLATED HEMOGLOBIN TEST Reviewed 05/25/2012 12:00 AM INJ TRIGGER POINT 1/2 MUSCL Reviewed 05/25/2012 12:00 AM Kenalog, Per 10 Mg ND#6021-8799-53 Reviewed 06/14/2012 12:00 AM DRAIN/INJ JOINT/BURSA W/O US Reviewed 06/14/2012 12:00 AM Kenalog, Per 10 Mg NDC#2668-8071-42 Reviewed 05/09/2017 12:00 AM MAMMOGRAPHY SCREENING, DIGITAL Reviewed 07/11/2012 12:00 AM THER/PROPH/DIAG INJ SC/IM Reviewed 07/11/2012 12:00 AM Decadron 1 mg NDC#[id number] (Manuel) Reviewed 07/11/2012 12:00 AM Depo-Medrol 80 mg [facility]#[id number]-Fvdnwvvp Reviewed 08/21/2012 12:00 AM ASSAY CARBOXYHB QUANT Reviewed 09/01/2017 12:00 AM RADIOLOGIC EXAMINATION KNEE 1/2 VIEWS Reviewed 09/18/2012 12:00 AM DRAIN/INJ JOINT/BURSA W/O US Reviewed 09/18/2012 12:00 AM Kenalog, Per 10 Mg [facility]#9160-4862-66 Reviewed 10/25/2017 12:00 AM RADIOLOGIC EXAMINATION KNEE [...] 12:00 AM Kenalog, Per 10 Mg [facility]#7700-6063-14 Reviewed 12/22/2012 12:00 AM TOTAL CORTISOL Reviewed 04/26/2013 12:00 AM DRAIN/INJ JOINT/BURSA W/O US Reviewed 04/26/2013 12:00 AM Kenalog, Per 10 Mg [facility]#3600-9099-06 Reviewed 05/10/2013 12:00 AM DRAIN/INJ JOINT/BURSA W/O US Reviewed 05/10/2013 12:00 AM Kenalog, Per 10 Mg [facility]#4194-9673-36 Reviewed 05/10/2013 12:00 AM DRAIN/INJ JOINT/BURSA W/O US Reviewed 05/10/2013 12:00 AM Kenalog, Per 10 Mg [facility]#1709-9178-03 Reviewed 05/28/2013 12:00 AM MAMMOGRAM SCREENING Reviewed [...] 12:00 AM Kenalog, Per 10 Mg [facility]#2646-2190-03 Reviewed 04/05/2014 12:00 AM COMPLETE CBC W/AUTO [...] Feb 2014 8:20AM Diabetes Mellitus, Type II Dec [...] Number Start Date [facility] Gpa [id number] Saturday, 2015 [employer] [place] [id number] Saturday, 2009 [employer] [place] [id number] Wednesday, 2009 History of Encounters Visit Date Visit Type Provider 12/02/2017 Office visit Brannon Manuel DO 11/11/2017 Office visit Brannon Manuel DO 11/09/2017 Office visit Harjinder Paiz PA-C 10/28/2017 Office visit Lakia Reina TRANSPORTATION ENGINEERING TECHNICIAN 10/25/2017 Office visit Regina Mcnally TRANSPORTATION ENGINEERING TECHNICIAN 10/05/2017 Office visit Regina Mcnally TRANSPORTATION ENGINEERING TECHNICIAN 09/01/2017 Office visit Brannon Manuel DO 06/29/2017 Office visit Karyna Gilbert TRANSPORTATION ENGINEERING TECHNICIAN 06/18/2017 Office visit Karyna Gilbert TRANSPORTATION ENGINEERING TECHNICIAN 05/09/2017 Office visit Brannon Manuel DO 03/08/2017 Office visit Brannon Manuel DO 01/25/2017 Office visit Brannon Manuel DO 01/19/2017 Office visit Regina Uli TRANSPORTATION ENGINEERING TECHNICIAN 01/04/2017 Procedures Reagan Lehman DO 12/24/2016 Office visit Brannon Manuel DO 12/23/2016 Surgery Reagan Bouman DO 12/14/2016 Office visit Reagan Lehman DO 11/25/2016 Office visit Brannon Manuel DO 11/19/2016 Office visit Sandra Yoan TRANSPORTATION ENGINEERING TECHNICIAN 11/02/2016 Office visit Lakia Reina TRANSPORTATION ENGINEERING TECHNICIAN 09/09/2016 Office visit Brannon Manuel DO 05/18/2016 [...] Manuel DO 07/03/2014 Office visit Rob Ruiz TRANSPORTATION ENGINEERING TECHNICIAN 06/11/2014 Office visit Cass BRAY 04/29/2014 Office [...] 11/24/2012 Office visit Regina Mcnally APRN 10/12/2012 [facility] Anirudh Conway MD 10/10/2012 Office visit Brannon Jackson DO 09/18/2012 Office visit Anirudh Conway MD 09/01/2012 Office visit Brannon Jackson DO 08/21/2012 Office visit Brannon Manuel DO 08/01/2012 Office visit Brannon Simpsonte DO 07/11/2012 Office visit Regina Mcnally APRN 06/14/2012 Office visit Anirudh Conway MD 05/25/2012 Office visit Anirudh Conway MD 05/04/2012 Office visit Brannon Jackson DO 12/23/2011 Office visit Anirudh Conway MD 12/16/2011 Office visit Brannon Jackson DO 12/06/2011 Office visit Anirudh Conway MD 11/11/2011 Office visit Brannon Jackson DO 10/28/2011 Office visit Brannon Jackson DO 10/22/2011 [facility] Valery Cerna MD 10/21/2011 [facility] Valery Cerna MD 10/19/2011 Office visit Brannon Jackson DO 10/19/2011 [facility] Anderson [...]
--- OUTSIDE RECORDS SUMMARY | 2018-10-25 13:39 | XMS REPORT ---
Author Author Brannon Jackson [facility] Address [address] [place], [place] [id number] Care Team Providers Care Rubber Stamp Die Inspector Name Role Phone Brannon Jackson PCP Unavailable [...] once daily omeprazole 40 mg oral capsule,delayed release(/EC) 01/18/2017 01/13/2018 TAKE ONE CAPSULE BY MOUTH [...] glucose 4 times a day Dx: e11.65 sulfamethoxazole-trimethoprim 800-160 mg oral tablet 02/04/2017 02/11/2017 [...] 2 times per day for 7 days [place] Thyroid 120 mg oral tablet 12/14/2012 12/09/2013 [...] Reviewed 12/13/2011 12:00 AM Kenalog per 10Mg Im-[facility]#[address]-14(Man) Reviewed 12/23/2011 12:00 AM DRAIN/INJ JOINT/BURSA W/O US Reviewed 12/23/2011 12:00 AM Kenalog 40 Mg [facility]#8240-7525-51 Reviewed 11/19/2016 12:00 AM X-RAY EXAM OF HAND Reviewed 01/19/2017 12:00 AM COMPLETE CBC W/AUTO DIFF WBC Reviewed 01/19/2017 12:00 AM COMPREHEN METABOLIC PANEL Reviewed 01/19/2017 12:00 AM GLYCOSYLATED HEMOGLOBIN TEST Reviewed 05/25/2012 12:00 AM INJ TRIGGER POINT 1/2 MUSCL Reviewed 05/25/2012 12:00 AM Kenalog, Per 10 Mg [facility]#7168-7738-38 Reviewed 06/14/2012 12:00 AM DRAIN/INJ JOINT/BURSA W/O US Reviewed 06/14/2012 12:00 AM Kenalog, Per 10 Mg [facility]#8511-7998-38 Reviewed 07/11/2012 12:00 AM THER/PROPH/DIAG INJ SC/IM Reviewed 07/11/2012 12:00 AM Decadron 1 mg [facility]#[id number] (Manuel) Reviewed 07/11/2012 12:00 AM Depo-Medrol 80 mg [facility]#[id number]-Buekddpd Reviewed 08/21/2012 12:00 AM ASSAY CARBOXYHB QUANT Reviewed 09/18/2012 12:00 AM DRAIN/INJ JOINT/BURSA W/O US Reviewed 09/18/2012 12:00 AM Kenalog, Per 10 Mg [facility]#8660-8524-14 Reviewed 10/13/2012 12:00 AM COMPREHEN METABOLIC PANEL Reviewed 10/13/2012 12:00 AM LIPID PANEL Reviewed 10/13/2012 12:00 AM GLYCOSYLATED HEMOGLOBIN TEST Reviewed 10/13/2012 12:00 AM MICROALBUMIN SEMIQUANT Reviewed 04/15/2010 12:00 AM MAMMOGRAM SCREENING Reviewed 12/06/2012 12:00 AM DRAIN/INJ JOINT/BURSA W/O US Reviewed 12/06/2012 12:00 AM Kenalog, Per 10 Mg [facility]#1489-3004-84 Reviewed 12/22/2012 12:00 AM TOTAL CORTISOL Reviewed 04/26/2013 12:00 AM DRAIN/INJ JOINT/BURSA W/O US Reviewed 04/26/2013 12:00 AM Kenalog, Per 10 Mg [facility]#9228-3800-82 Reviewed 05/10/2013 12:00 AM DRAIN/INJ JOINT/BURSA W/O US Reviewed 05/10/2013 12:00 AM Kenalog, Per 10 Mg [facility]#5566-8638-03 Reviewed 05/10/2013 12:00 AM DRAIN/INJ JOINT/BURSA W/O US Reviewed 05/10/2013 12:00 AM Kenalog, Per 10 Mg [facility]#5279-8681-23 Reviewed 05/28/2013 12:00 AM MAMMOGRAM SCREENING Reviewed [...] 12:00 AM Kenalog, Per 10 Mg [facility]#3428-3750-16 Reviewed 04/05/2014 12:00 AM COMPLETE CBC W/AUTO [...] Policy Group Number Start Date Gpa Gpa [id number] Saturday, 2015 [employer] [place] [id number] Saturday, 2009 [employer] [place] [id number] Wednesday, 2009 History of Encounters Visit Date Visit Type Provider 01/25/2017 Office visit Brannon Jackson DO 01/19/2017 Office visit Regina Mcnally UMBRELLA SUPERVISOR 01/04/2017 Procedures Reagan Lehman DO 12/24/2016 Office visit Brannon Jackson DO 12/23/2016 Surgery Reagan Lehman DO 12/14/2016 Office visit Reagan Lehman DO 11/25/2016 Office visit Brannon Jackson DO 11/19/2016 Office visit Sandra Milton UMBRELLA SUPERVISOR 11/02/2016 Office visit Lakia Reina UMBRELLA SUPERVISOR 09/09/2016 Office visit Brannon Jackson DO 05/18/2016 [...] Brannon Tidwellburt BALTAZAR 12/12/2014 Office visit Cass ARCINIEGAP 10/29/2014 Office [...] Jackson DO 07/11/2012 Office visit Regina Uli UMBRELLA SUPERVISOR 06/14/2012 Office visit Anirudh Conway MD [...] Jackson DO 08/18/2010 Office visit Regina Uli UMBRELLA SUPERVISOR 02/03/2010 Office visit Brannon Jackson DO 12/02/2009 Office visit Brannon Jackson DO 06/27/2009 Office visit Brannon Jackson DO
--- OUTSIDE RECORDS SUMMARY | 2018-10-25 13:41 | XMS REPORT ---
Author Author Brannon Jackson [facility] Address [address] [place], [place] [address] Care Team Providers Care Director Of Public Health Name Role Phone Brannon Jackson PCP Unavailable [...] 2 times per day for 7 days [place] Thyroid 120 mg oral tablet 12/14/2012 12/09/2013 [...] Kenalog per 10Mg [facility]#[address]-09(Man) Reviewed 12/23/2011 12:00 AM DRAIN/INJ JOINT/BURSA W/O US Reviewed 12/23/2011 12:00 AM Kenalog 40 Mg [facility]#3877-5823-93 Reviewed 05/25/2012 12:00 AM INJ TRIGGER POINT 1/2 MUSCL Reviewed 05/25/2012 12:00 AM Kenalog, Per 10 Mg [facility]#9454-9782-21 Reviewed 06/14/2012 12:00 AM DRAIN/INJ JOINT/BURSA W/O US Reviewed 06/14/2012 12:00 AM Kenalog, Per 10 Mg [facility]#2519-4725-58 Reviewed 07/11/2012 12:00 AM THER/PROPH/DIAG INJ SC/IM Reviewed 07/11/2012 12:00 AM Decadron 1 mg [facility]#[id number] (Manuel) Reviewed 07/11/2012 12:00 AM Depo-Medrol 80 mg [facility]#[id number]-Nbfrkmuv Reviewed 08/21/2012 12:00 AM ASSAY CARBOXYHB QUANT Reviewed 09/18/2012 12:00 AM DRAIN/INJ JOINT/BURSA W/O US Reviewed 09/18/2012 12:00 AM Kenalog, Per 10 Mg [facility]#0431-2791-92 Reviewed 10/13/2012 12:00 AM COMPREHEN METABOLIC PANEL Reviewed 10/13/2012 12:00 AM LIPID PANEL Reviewed 10/13/2012 12:00 AM GLYCOSYLATED HEMOGLOBIN TEST Reviewed 10/13/2012 12:00 AM MICROALBUMIN SEMIQUANT Reviewed 04/15/2010 12:00 AM MAMMOGRAM SCREENING Reviewed 12/06/2012 12:00 AM DRAIN/INJ JOINT/BURSA W/O US Reviewed 12/06/2012 12:00 AM Kenalog, Per 10 Mg [facility]#7107-8754-30 Reviewed 12/22/2012 12:00 AM TOTAL CORTISOL Reviewed 04/26/2013 12:00 AM DRAIN/INJ JOINT/BURSA W/O US Reviewed 04/26/2013 12:00 AM Kenalog, Per 10 Mg [facility]#3583-0921-56 Reviewed 05/10/2013 12:00 AM DRAIN/INJ JOINT/BURSA W/O US Reviewed 05/10/2013 12:00 AM Kenalog, Per 10 Mg [facility]#2968-2110-53 Reviewed 05/10/2013 12:00 AM DRAIN/INJ JOINT/BURSA W/O US Reviewed 05/10/2013 12:00 AM Kenalog, Per 10 Mg [facility]#3102-1113-71 Reviewed 05/28/2013 12:00 AM MAMMOGRAM SCREENING Reviewed [...] 03/05/2014 12:00 AM Kenalog, Per 10 Mg [facility]#5910-1047-52 Reviewed 04/05/2014 12:00 AM COMPLETE CBC W/AUTO [...] Number Start Date [facility] Gpa [id number] Saturday, 2015 [employer] [facility] [id number] Saturday, 2009 [employer] [facility] [id number] Wednesday, 2009 History of Encounters Visit Date [...] Jackson DO 09/05/2014 Office visit Cass Arellano SECURITIES CONSULTANT 07/29/2014 Office visit Cass M. Adan SECURITIES CONSULTANT 07/18/2014 Office visit Brannon Manuel DO 07/03/2014 Office visit Rob Joseph INSURANCE BILLING SPECIALIST 06/11/2014 Office visit Cass Arellano SECURITIES CONSULTANT 04/29/2014 Office visit Cass Arellano SECURITIES CONSULTANT 04/29/2014 Office visit Brannon Manuel DO 04/05/2014 Office visit Harjinder Piaz PA-C 02/25/2014 Office visit Cass Arellano SECURITIES CONSULTANT 01/02/2014 Office visit Cass Arellano SECURITIES CONSULTANT 12/18/2013 Office visit Cass M. Adan SECURITIES CONSULTANT 09/13/2013 Office visit Brannon Jackson DO 08/27/2013 Office visit Regina Mcnally INSURANCE BILLING SPECIALIST 08/17/2013 Office visit Ray Tripathi INSURANCE BILLING SPECIALIST 05/21/2013 Office visit Brannon Jackson DO 05/10/2013 Office visit Anirudh Conway MD 04/26/2013 Office visit Anirudh Conway MD 12/22/2012 Office visit Brannon Jackson DO 12/14/2012 [facility] Sandra Ca MD 12/12/2012 Office visit Brannon Jackson DO 12/12/2012 [facility] Sandra Ca MD 12/06/2012 Office visit Anirudh Conway MD 11/24/2012 Office visit Regina Mcnally INSURANCE BILLING SPECIALIST 10/12/2012 [facility] Anirudh Conway MD 10/10/2012 Office visit Brannon Jackson DO 09/18/2012 Office visit Anirudh Conway MD 09/01/2012 Office visit Brannon Jackson DO 08/21/2012 Office visit Brannon Jackson DO 08/01/2012 Office visit Brannon Jackson DO 07/11/2012 Office visit Regina Mcnally INSURANCE BILLING SPECIALIST 06/14/2012 Office visit Anirudh Conway MD [...]
--- OUTSIDE RECORDS SUMMARY | 2018-10-25 13:44 | XMS REPORT ---
Author Author Brannon Jackson [facility] Address [address] [place], [place] [id number] Care Team Providers Care Pain Management Nurse Name Role Phone Brannon Jackson PCP [...] route once daily for 90 days fluconazole 150 mg oral tablet 08/30/2016 take 1 tablet (150 mg) by oral route once Name Start Date Expiration Date SIG Comments [...] 2 times per day for 7 days [place] Thyroid 120 mg oral tablet 12/14/2012 12/09/2013 [...] AM Kenalog per 10Mg [facility]#[address]-91(Man) Reviewed 12/23/2011 12:00 AM DRAIN/INJ JOINT/BURSA W/O US Reviewed 12/23/2011 12:00 AM Kenalog 40 Mg [facility]#9046-4460-92 Reviewed 05/25/2012 12:00 AM INJ TRIGGER POINT 1/2 MUSCL Reviewed 05/25/2012 12:00 AM Kenalog, Per 10 Mg [facility]#4020-6085-02 Reviewed 06/14/2012 12:00 AM DRAIN/INJ JOINT/BURSA W/O US Reviewed 06/14/2012 12:00 AM Kenalog, Per 10 Mg [facility]#7640-9426-38 Reviewed 07/11/2012 12:00 AM THER/PROPH/DIAG INJ SC/IM Reviewed 07/11/2012 12:00 AM Decadron 1 mg [place]#[id number] (Manuel) Reviewed 07/11/2012 12:00 AM Depo-Medrol 80 mg [facility]#[id number]-Vkjvqeqj Reviewed 08/21/2012 12:00 AM ASSAY CARBOXYHB QUANT Reviewed 09/18/2012 12:00 AM DRAIN/INJ JOINT/BURSA W/O US Reviewed 09/18/2012 12:00 AM Kenalog, Per 10 Mg [facility]#6205-7690-74 Reviewed 10/13/2012 12:00 AM COMPREHEN METABOLIC PANEL Reviewed 10/13/2012 12:00 AM LIPID PANEL Reviewed 10/13/2012 12:00 AM GLYCOSYLATED HEMOGLOBIN TEST Reviewed 10/13/2012 12:00 AM MICROALBUMIN SEMIQUANT Reviewed 04/15/2010 12:00 AM MAMMOGRAM SCREENING Reviewed 12/06/2012 12:00 AM DRAIN/INJ JOINT/BURSA W/O US Reviewed 12/06/2012 12:00 AM Kenalog, Per 10 Mg [facility]#1534-2670-55 Reviewed 12/22/2012 12:00 AM TOTAL CORTISOL Reviewed 04/26/2013 12:00 AM DRAIN/INJ JOINT/BURSA W/O US Reviewed 04/26/2013 12:00 AM Kenalog, Per 10 Mg [place]#0228-8854-54 Reviewed 05/10/2013 12:00 AM DRAIN/INJ JOINT/BURSA W/O US Reviewed 05/10/2013 12:00 AM Kenalog, Per 10 Mg [facility]#7128-8488-84 Reviewed 05/10/2013 12:00 AM DRAIN/INJ JOINT/BURSA W/O US Reviewed 05/10/2013 12:00 AM Kenalog, Per 10 Mg [facility]#2172-1249-99 Reviewed 05/28/2013 12:00 AM MAMMOGRAM SCREENING Reviewed [...] 12:00 AM Kencain, Per 10 Mg [facility]#2635-5603-66 Reviewed 04/05/2014 12:00 AM COMPLETE CBC W/AUTO [...] BILI 0.90 mg/dLCALCIUM 9.50 mg/dLeGFR >60 mL/min/1.73 q8TPJEHU 18.0 U/L 01/02/2014 10:02 AM GLUCOSE 134.0 [...] 14.20 g/dLHCT 42.0 %MCV 90.0 fLMCH 30.30 [facility] [place] [place] 33.80 g/dLRDW CV 12.70 %MPV 10.30 fLPLT [...] Chronic Right Pain in joint; Knee Feb 12 2014 3:20PM Lumbago Feb 12 2014 [...] Policy Group Number Start Date Gpa Gpa [id number] Saturday, 2015 [employer] [facility] [id number] Saturday, 2009 [employer] [facility] [id number] Wednesday, 2009 History of Encounters Visit Date [...] visit Cass BRAY 07/18/2014 Office visit Brannon Simpsonte DO 07/03/2014 Office visit Rob Ruiz BAND TACKER 06/11/2014 Office visit Cass Arellano PERSONAL CHEF 04/29/2014 Office visit Cass Arellano PERSONAL CHEF 04/29/2014 Office visit Brannon Jackson DO 04/05/2014 Office visit Harjinder Paiz PA-C 02/25/2014 Office visit Cass Arellano PERSONAL CHEF 01/02/2014 Office visit Cass Arellano PERSONAL CHEF 12/18/2013 Office visit Cass ARCINIEGAP 09/13/2013 Office visit Brannon Jackson DO 08/27/2013 Office visit Regina Mcnally BAND TACKER 08/17/2013 Office visit Ray Tripathi BAND TACKER 05/21/2013 Office visit Brannon Jackson DO 05/10/2013 Office visit Anirudh Conway MD 04/26/2013 Office visit Anirudh Conway MD 12/22/2012 Office visit Brannon Jackson DO 12/14/2012 [facility] Sandra Ca MD 12/12/2012 Office visit Brannon Jackson DO 12/12/2012 [facility] Sandra Ca MD 12/06/2012 Office visit Anirudh Conway MD 11/24/2012 Office visit Regina Mcnally BAND TACKER 10/12/2012 [facility] Anirudh Conway MD 10/10/2012 Office visit Brannon Jackson DO 09/18/2012 Office visit Anirudh Conway MD 09/01/2012 Office visit Brannon Jackson DO 08/21/2012 Office visit Brannon Jackson DO 08/01/2012 Office visit Brannon Jackson DO 07/11/2012 Office visit Regina Mcnally BAND TACKER 06/14/2012 Office visit Anirudh Conway MD 05/25/2012 [...]
--- OUTSIDE RECORDS SUMMARY | 2018-10-25 13:46 | XMS REPORT | Continuity of Care Document ---
Author Author [facility] Address Unknown Phone Unavailable Allergies Active Description Code Type Severity Reaction Onset Reported/Identified Relationship to Patient Clinical Status Yes PROMETHAZINE [id number] DRUG N/A VOMITING Yes ZOFRAN [id number] BRANDNAME N/A VOMITING Yes ANTI-NAUSEA ANTI-NAUSEA Unknown VOMITING 08/14/2014 Medications There is no data. Problems Date Dx Coded Attending Type Code Diagnosis Diagnosed By 08/23/2014 AMAYA FERNANDEZ DPM Ot 735.4 OTHER HAMMER TOE 08/23/2014 REBECCA DPAMAYA Beltran Ot V58.69 OTH MED,LT,CURRENT USE 10/19/2018 REBECCA DPAMAYA Beltran P Ot 735.4 OTHER HAMMER TOE 10/19/2018 REBECCA DPDevin AMAYA P Ot V72.63 PRE-PROCEDURAL LABORATORY EXAMINATION 10/19/2018 REBECCA MAR AMAYA P Ot V74.8 SCREEN-BACTERIAL DIS NEC Procedures There is no data. Results Test Result Range Methicillin resistant Staphylococcus aureus (MRSA) screening culture - 11:05 Methicillin resistant Staphylococcus aureus (MRSA) screening culture NEG NRG Encounters ACCT No. Visit Date/Time Discharge Status Pt. Type Provider Facility Loc./Unit Complaint [id number] 09/28/2018 08:54:51 09/28/2018 23:59:59 CLS Outpatient Brannon Jackson [id number] 08/17/2018 09:17:31 08/17/2018 23:59:59 CLS Outpatient Brannon Jackson [id number] 06/27/2018 16:48:18 06/27/2018 23:59:59 CLS Outpatient Brannon Jackson [id number] 06/27/2018 10:46:59 06/27/2018 23:59:59 CLS Outpatient Lakia Reina [id number] 05/24/2018 16:10:00 05/24/2018 23:59:59 CLS Outpatient Susan Infante [id number] 05/11/2018 14:52:10 05/11/2018 23:59:59 CLS Outpatient ManuelBrannon [id number] 03/28/2018 10:22:59 03/28/2018 23:59:59 CLS Outpatient ManuelBrannon [id number] 12/02/2017 09:52:23 12/02/2017 23:59:59 CLS Outpatient ManuelBrannon [id number] 11/11/2017 10:21:04 11/11/2017 23:59:59 CLS Outpatient ManuelBrannon [id number] 11/09/2017 18:16:20 11/09/2017 23:59:59 CLS Outpatient Harjinder Paiz [id number] 10/28/2017 18:33:09 10/28/2017 23:59:59 CLS Outpatient Lakia Reina [id number] 10/25/2017 14:09:43 10/25/2017 23:59:59 CLS Outpatient Uli, Regina [id number] 10/05/2017 09:16:33 10/05/2017 23:59:59 CLS Outpatient Uli, Regina [id number] 09/01/2017 14:16:19 09/01/2017 23:59:59 CLS Outpatient ManuelBrannon [id number] 06/29/2017 20:23:23 06/29/2017 23:59:59 CLS Outpatient Karyna Gilbert [id number] 06/18/2017 09:30:59 06/18/2017 23:59:59 CLS Outpatient Karyna Gilbert [id number] 05/09/2017 09:11:56 05/09/2017 23:59:59 CLS Outpatient ManuelBrannon [id number] 03/08/2017 16:47:20 03/08/2017 23:59:59 CLS Outpatient ManuelBrannon [id number] 01/25/2017 16:18:20 01/25/2017 23:59:59 CLS Outpatient ManuelAndrewa [id number] 01/19/2017 10:19:53 01/19/2017 23:59:59 CLS Outpatient Uli, Regina [id number] 01/04/2017 15:36:38 01/04/2017 23:59:59 CLS Outpatient Reagan Lehman [id number] 12/24/2016 15:05:05 12/24/2016 23:59:59 CLS Outpatient Manuel, Brannon [id number] 12/24/2016 11:43:19 12/24/2016 23:59:59 CLS Outpatient Reagan Lehman [id number] 12/14/2016 15:19:42 12/14/2016 23:59:59 CLS Outpatient Reagan Lehman [id number] 11/25/2016 16:15:45 11/25/2016 23:59:59 CLS Outpatient Brannon Jackson [id number] 11/22/2016 14:58:41 11/22/2016 23:59:59 CLS Outpatient Sandra Milton [id number] 11/02/2016 18:07:32 11/02/2016 23:59:59 CLS Outpatient Lakia Reina [id number] 09/09/2016 16:15:36 09/09/2016 23:59:59 CLS Outpatient Brannon Jackson [id number] 05/18/2016 16:46:00 05/18/2016 23:59:59 CLS Outpatient ManuelBrannon mace [id number] 05/05/2016 09:29:28 05/05/2016 23:59:59 CLS Outpatient ManuelBrannon mace [id number] 12/09/2015 15:27:03 12/09/2015 23:59:59 CLS Outpatient Cass Arellano [id number] 10/13/2015 16:40:42 10/13/2015 23:59:59 CLS Outpatient Andrew Jacksona [id number] 09/18/2015 17:22:26 09/18/2015 23:59:59 CLS Outpatient Cass Arellano [id number] 09/03/2015 15:36:08 09/03/2015 23:59:59 CLS Outpatient Reagan Lehman [id number] 08/29/2015 10:18:41 08/29/2015 23:59:59 CLS Outpatient ManuelAndrew macea [id number] 08/20/2015 14:01:35 08/20/2015 23:59:59 CLS Outpatient Cass Arellano [id number] 08/01/2015 12:30:50 08/01/2015 23:59:59 CLS Outpatient Cass Arellano [id number] 07/02/2015 17:02:37 07/02/2015 23:59:59 CLS Outpatient Cass Arellano [id number] 06/09/2015 22:31:54 06/09/2015 23:59:59 CLS Outpatient Cass Arellano [id number] 06/09/2015 22:17:31 06/09/2015 23:59:59 CLS Outpatient ManuelAndrew macea [id number] 06/09/2015 22:12:32 06/09/2015 23:59:59 CLS Outpatient Cass Arellano [id number] 06/09/2015 22:07:52 06/09/2015 23:59:59 CLS Outpatient Audra Dinesh Quintanilla [id number] 06/09/2015 22:04:54 06/09/2015 23:59:59 CLS Outpatient Brannon Jackson [id number] 06/09/2015 21:52:38 06/09/2015 23:59:59 CLS Outpatient Cass Arellano [id number] 06/09/2015 21:46:57 06/09/2015 23:59:59 CLS Outpatient ManuelAndrewa [id number] 03/10/2015 17:05:42 03/10/2015 23:59:59 CLS Outpatient Cass Arellano [id number] 02/25/2015 12:42:03 02/25/2015 23:59:59 CLS Outpatient Cass Arellano [id number] 02/05/2015 12:37:54 02/05/2015 23:59:59 CLS Outpatient Cass Arellano [id number] 12/12/2014 16:05:36 12/12/2014 23:59:59 CLS Outpatient Cass Arellano [id number] 10/29/2014 16:32:48 10/29/2014 23:59:59 CLS Outpatient Cass Arellano [id number] 10/02/2014 17:16:03 10/02/2014 23:59:59 CLS Outpatient Cass Arellano [id number] 09/20/2014 10:45:02 09/20/2014 23:59:59 CLS Outpatient Manuel Brannon [id number] 09/05/2014 16:36:19 09/05/2014 23:59:59 CLS Outpatient Cass Arellano [id number] 07/29/2014 11:56:59 07/29/2014 23:59:59 CLS Outpatient Cass Arellano [id number] 07/18/2014 11:21:25 07/18/2014 23:59:59 CLS Outpatient Brannon Jackson [id number] 07/03/2014 15:02:57 07/03/2014 23:59:59 CLS Outpatient Rob Ruiz [id number] 06/11/2014 16:40:22 06/11/2014 23:59:59 CLS Outpatient Cass Arellano [id number] 04/29/2014 17:35:39 04/29/2014 23:59:59 CLS Outpatient Cass Arellano [id number] 04/29/2014 11:58:15 04/29/2014 23:59:59 CLS Outpatient Brannon Jackson [id number] 04/05/2014 18:06:27 04/05/2014 23:59:59 CLS Outpatient Harjinder Paiz [id number] 02/25/2014 13:59:38 02/25/2014 23:59:59 CLS Outpatient Cass Arellano [id number] 01/02/2014 09:28:49 01/02/2014 23:59:59 CLS Outpatient Cass Arellano [id number] 12/18/2013 10:02:42 12/18/2013 23:59:59 CLS Outpatient Cass Arellano [id number] 09/28/2018 08:53:57 Document Registration [id number] 07/04/2018 17:05:20 Document Registration [id number] 06/02/2018 10:08:57 Document Registration [id number] 05/29/2018 16:50:00 Document Registration [id number] 05/29/2018 16:49:50 Document Registration [id number] 05/16/2018 13:08:36 Document Registration [id number] 05/09/2018 12:05:02 Document Registration [id number] 01/14/2018 08:18:09 Document Registration [id number] 12/02/2017 09:28:13 Document Registration [id number] 11/09/2017 17:37:07 Document Registration [id number] 10/25/2017 13:59:54 Document Registration [id number] 09/01/2017 14:02:25 Document Registration [id number] 10/19/2018 10:15:00 10/19/2018 11:43:00 DIS Outpatient SUSAN YOON MD [facility] PREOP RT. SHOULDER SCOPE [id number] 08/23/2014 07:00:00 08/23/2014 13:27:00 DIS Outpatient AMAYA FERNANDEZ DPM Via [facility] RIGHT [address] [place] [address] [id number] 08/14/2014 08:03:00 08/14/2014 23:59:59 CLS Outpatient REBECCA MAR, AMAYA Quintanilla [facility] PREOP RIGHT 5TH ZEV [id number] 10/25/2018 09:30:00 PEN Preadmit CAR MONDRAGON, SUSAN Quintanilla [facility] RT. SHOULDER TORN ROTATOR CUFF
--- NOTE | 2018-10-25 15:42 | Anesthesia-Procedure Note ---
Procedures/Interventions Procedure Start/Stop/Diagnosis Date of Procedure: Oct 25, 2018 Start Time: 08:50 Referring Physician: Dr Reynolds, requested an interscalene nerve block for post op pain relief Preprocedural Diagnosis: R shoulder torn rotator cuff Brief History Anesthesia Note ([id number]) ASA 2 +/- R Interscalene Block discussed with patient and consent obtained. Site confirmed with patient. Versed 2 mg IV for sedation. ChloraPrep used prior to the procedure. U/S used to identify nerve, needle and local anesthetic. 2" echogenic stimuplex needle used after a small skin wheel with 2% lidocaine. Good forearm twitch at 0.4 mA and it went away at 0.36. 15 mL 0.5% Bupivicaine with a negative aspiration every 5 mL and no increased resistance on injection. C5 and C6 nerve roots seen with LA surrounding them and the needle away form roots. Pt tolerated the procedure well. Stop Time: 09:10 Postprocedural Diagnosis: Same AIME GUZMÁN DO Oct 25, 2018 15:42
--- NOTE | 2018-10-25 15:57 | Anesthesia-General Post-Op ---
General Patient Condition Mental Status/LOC: Same as Preop Cardiovascular: Satisfactory Nausea/Vomiting: Absent Respiratory: Satisfactory Pain: Controlled Complications: Absent Post Op Complications Complications None Follow Up Care/Instructions Patient Instructions None needed. Anesthesia/Patient Condition Patient Condition Patient was seen after the procedure and she was doing well, no complaints, stable vital signs, no apparent adverse anesthesia problems. She was having very minimal pain in her shoulder secondary to her ISB and was stable for D/C to home. AIME GUZMÁN DO Oct 25, 2018 15:57
== END 2018-10-25 13:30 | disposition home or self-care (01) ==
LOC: SDC 07:08
PROVIDERS: ATTEND Orthopaedic Surgery
DX: M75.101 Unspecified rotator cuff tear or rupture of right shoulder, not specified as traumatic (principal); S43.431A Superior glenoid labrum lesion of right shoulder, initial encounter; E11.9 Type 2 diabetes mellitus without complications; I10 Essential (primary) hypertension; F32.9 Major depressive disorder, single episode, unspecified; M79.7 Fibromyalgia; E78.5 Hyperlipidemia, unspecified; M54.5 Low back pain; F41.9 Anxiety disorder, unspecified; N32.81 Overactive bladder; K21.9 Gastro-esophageal reflux disease without esophagitis; Z87.891 Personal history of nicotine dependence; Z79.899 Other long term (current) drug therapy; E66.9 Obesity, unspecified; Z68.35 Body mass index [BMI] 35.0-35.9, adult
CPT/HCPCS: 82962